=== PATIENT | female | born 1980 | race Caucasian/White ===

== ENCOUNTER 2017-02-08 03:24 | Observation (INO) | payer MEDICARE ==
[~2017-02-08] VITALS: Ht 175.3 cm; Wt 161.2 kg
[~2017-02-08 03:24] MED LIST: ACET-789 PO; AMOX500C2 PO; BENZ-13 PO; BUTA-234 PO; BUTA1TAB55 PO; CEFD300C3 PO; CEPH500T PO; CLIN300C3 PO; CLN150C PO; CYCL10TA9 PO; DIPH25CA79 PO; DOXY100C2 PO; DOXY100T61 PO; FURO-125 PO; HYDR-707 PO; IBP600T1; IBP800T PO; IBUP-30 PO; IPRA3AMP IH; LACT1CAP62 PO; LEVO500T69 PO; LEVO500T80 PO; LIRA0.6P SQ; LURA20TA PO; LURA60TA2 PO; LVF500T PO; MELO-198 PO; METF500T4 PO; METH4TAB PO; MINO100T10 PO; MPR22T TOP; MPR22T TP; MTF500T PO; NAPR-243 PO; NYQUIL LIQUID PO; OFLO5DRO7 EACH EAR; PRD10T PO; PRD20T PO; PREG25CA PO; PREG50CA2 PO; PRM25T PO; PROBIOTIC1 EACH PO; RT-ALBUINH IH; SPIR25TA PO; SULF1TAB35 PO; SULF1TAB38 PO; TERB15CR6 TP; TPR100T PO; TR025C15 TP; TRAM50TA2 PO; TRM50T PO
[2017-02-08] MEDS ORDERED: CLINDAMYCIN INJECTION 900 MG in NS (IVPB) 50 ML IV ONE (03:45)
[2017-02-08] MEDS ORDERED: fentaNYL INJECTION 100 MCG/2 ML AMP IVP ONE (03:45)
[2017-02-08 04:10] LABS: BASOPHILS % (AUTO) 0 % (0-10); EOSINOPHILS # (AUTO) 0.4 10^3/uL (0.0-0.3); EOSINOPHILS % (AUTO) 3 % (0-10); LYMPHOCYTES # (AUTO) 2.7 X 10^3 (1.0-4.0); LYMPHOCYTES % (AUTO) 20 % (12-44); MEAN CORPUSCULAR HEMOGLOBIN 25 PG (25-34); MEAN CORPUSCULAR HGB CONC 32 G/DL (32-36); MEAN CORPUSCULAR VOLUME 79 FL (80-99); MEAN PLATELET VOLUME 9.2 FL (7.4-10.4); MONOCYTES # (AUTO) 0.6 X 10^3 (0.0-1.0); MONOCYTES % (AUTO) 4 % (0-12); NEUTROPHILS # (AUTO) 9.8 X 10^3 (1.8-7.8); NEUTROPHILS % (AUTO) 73 % (42-75); PLATELET COUNT 383 10^3/uL (130-400); RED BLOOD COUNT 4.99 10^6/uL (4.35-5.85); RED CELL DISTRIBUTION WIDTH 14.8 % (10.0-14.5); WHITE BLOOD COUNT 13.4 10^3/uL (4.3-11.0)
[2017-02-08 04:29] LABS: ALANINE AMINOTRANSFERASE 28 U/L (0-55); ALBUMIN 3.9 G/DL (3.2-4.5); ANION GAP 15 MMOL/L (5-14); ASPARTATE AMINO TRANSFERASE 21 U/L (5-34); BILIRUBIN,TOTAL 0.3 MG/DL (0.1-1.0); BLOOD UREA NITROGEN 13 MG/DL (7-18); BUN/CREATININE RATIO 19; CALCIUM 9.4 MG/DL (8.5-10.1); CARBON DIOXIDE 23 MMOL/L (21-32); CHLORIDE 100 MMOL/L (98-107); GFR ESTIMATED > 60; GLUCOSE 129 MG/DL (70-105); POTASSIUM 3.9 MMOL/L (3.6-5.0); SODIUM 138 MMOL/L (135-145)
[2017-02-08] MEDS ORDERED: morphine INJ 10 MG/ML 1ML (SYR OR VIAL) IVP ONE (04:45)
[2017-02-08] MEDS ORDERED: DOXYCYCLINE 100 MG (VIBRAMYCIN) TABLET PO ONE (04:45)
[2017-02-08] MEDS ORDERED: NS IV 1000 ML 1,000 ML IV ONE (04:58)
--- NOTE | 2017-02-08 05:22 | ED General ---
General Chief Complaint: Skin/Wound Problems Stated Complaint: LEFT & RT LEG OPEN SKIN WOUNDS-NO INJURY Nursing Triage Note: Amb to ED to report painful lower extremities since Friday night. the lower extremities began to make sores and open/weep. 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 She reports having some fevers earlier in the week she attributed to some sinus problems but no fevers over the past 48 hours. She reports the pain is becoming intolerable despite taking ibuprofen. She is afebrile on presentation. She has been treated for cellulitis in the past, and wound cultures from prior visits were reviewed. She has some mild weeping of the lesions where there is skin breakdown. Allergies and Home Medications Allergies Coded Allergies: NKANo Known Allergies (Verified Allergy, Mild, 02/08/17) Home Medications Albuterol Sulfate 8.5 Gm Hfa.aer.ad, 8.5 GM IH Q4H PRN for WHEEZING, #1 Prescribed by: SIMBA PATEL on 09/19/15 1206 Clobetasol Propionate 15 Gm Oint...g., 15 GM TP BID, #1 Ref 0 Prescribed by: KEV SHELL on 02/08/17 1403 Furosemide 20 Mg Tablet, 20 MG PO DAILY, (Reported) Ibuprofen 200 Mg Tablet, 800 MG PO TID PRN for PAIN, (Reported) TAKES 4 (200MG) TABLETS Ipratropium/Albuterol Sulfate 3 Ml Ampul.neb, 3 ML IH Q4H PRN for SHORTNESS OF BREATH, #25 Prescribed by: DELANEY GARZA on 09/22/152015 Lurasidone HCl 60 Mg Tablet, 60 MG PO HS, (Reported) Mupirocin 22 Gm Tube, 1 APPLIC TP BID PRN for ITCHING AND RASH, (Reported) APPLY TO LEFT LOWER EXTREMITY SPARINGLY TO AFFECTED AREA(S) Mupirocin Calcium 15 Gm Cream..g., 15 GM TP BID for 7 Days, #1 Ref 0 Prescribed by: KEV SHELL on 02/08/17 1403 Terbinafine HCl 15 Gm Cream..g., TP BID PRN for LEG SORES, (Reported) Constitutional: see HPI EENTM: no symptoms reported Respiratory: no symptoms reported Cardiovascular: no symptoms reported Gastrointestinal: no symptoms reported Genitourinary: no symptoms reported ( aaaaaaaaaaaaaaaaaaaaaaaaaaaaaaaaaaaaaaaaaaaaaaaaaaaaaaaaaaaaaaaaaaaaaaaaaaaaaaaa aaaaaaaaaaaaaaaa ) Musculoskeletal: no symptoms reported Skin: see HPI Psychiatric/Neurological: No Symptoms Reported Hematologic/Lymphatic: No Symptoms Reported Past Mbecowm-Gfxhdi-Plzmtx Hx Patient Social History Alcohol Use: Occasionally Uses Recreational Drug Use: Yes (HISTORY OF ILLICIT DRUG USE) Smoking Status: Never a Smoker Recent Foreign Travel: No Contact w/Someone Who Travel: No Recent Infectious Disease Expo: No Recent Hopitalizations: No Immunizations Up To Date Tetanus Booster (TDap): Less than 5yrs PED Vaccines UTD: No Date of Pneumonia Vaccine: Jun 15, 2011 Date of Influenza Vaccine: Sep 16, 2015 Seasonal Allergies Seasonal Allergies: No Surgeries HX Surgeries: Yes (EGD, L MASTOIDECTOMY, R MYRINGOTOMY TUBE, BTL REVERSAL) Surgeries: Appendectomy, Ear Surgery, Gallbladder, Tubal Ligation Respiratory Hx Respiratory Disorders: Yes Respiratory Disorders: Pneumonia, Sleep Apnea Cardiovascular Hx Cardiac Disorders: Yes (-INDUCED HTN) Cardiac Disorders: Hypertension Neurological Hx Neurological Disorders: No 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 System Hx 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 Disorders: No Sexually Transmitted Disease: No HIV/AIDS: No Female 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 Disorders: Denies 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 Genitourinary Hx Genitourinary Disorders: Yes Genitourinary Disorders: Kidney Stones, UTI-Chronic Gastrointestinal Hx Gastrointestinal Disorders: Yes Gastrointestinal Disorders: Gastroesophageal Reflux Musculoskeletal Hx Musculoskeletal Disorders: Yes (CHRONIC GENERALIZED PAIN ) Musculoskeletal Disorders: Degenerate Disk Disease, Arthritis, Fibromyalgia, Chronic Back Pain Endocrine Hx Endocrine Disorders: No Endocrine Disorders: Diabetes, Non-Insulin dep HEENT HX ENT Disorders: Yes (MASTOIDITIS) HEENT Disorders: Chronic Ear Infection Loss of Vision: Denies Hearing Impairment: Hard of Hearing Cancer Hx Cancer: No Psychosocial Hx Psychiatric Problems: Yes (PSYCHOSIS, SOCIAL ANXIETY DISORDER) Behavioral Health Disorders: ADD/ADHD, Anxiety, Suicide Attempts, Bipolar, Personality Disorder, Schizophrenia, Depression Integumentary HX Skin/Integumentary Disorder: Yes (DARIER'S DISEASE. CHRONIC LEG CELLULITIS-- MRSA) Skin/Integumentary Disorders: Recent Skin Changes Blood Transfusions Hx Blood Disorders: No Adverse Reaction to a Blood Tr: No Family Medical History Significant Family History: No Pertinent Family Hx Family Medial History: Cancer Chest pain 03 FATHER, Onset:Unknown UNCLE, Onset:Unknown Congestive heart failure Family history: Allergy 09 BROTHER, Onset:Unknown Family history: Arthritis 03 FATHER, Onset:Unknown 03 MOTHER, Onset:Unknown Family history: Asthma 03 FATHER, Onset:Unknown UNCLE, Onset:Unknown Family history: Diabetes mellitus Family history: Thyroid disorder 09 SISTER, Onset:Unknown Headache 03 MOTHER, Onset:Unknown Heart disease Hereditary disease 03 FATHER, Onset:Unknown 09 BROTHER, Onset:Unknown UNCLE, Onset:Unknown History of - respiratory disease 03 FATHER, Onset:Unknown UNCLE, Onset:Unknown Myocardial infarction Psychotic disorder 09 BROTHER, Onset:Unknown No Family History of: Abdominal aortic aneurysm Antoni's disease Alcoholism Aphasia Cancer of colon Cataract Congenital heart disease Cystic fibrosis Dementia Dysphagia Family history: Alzheimer's disease Family history: Breast disease Family history: Cardiovascular disease Family history: Coronary thrombosis Family history: Gastrointestinal disease Family history: Glaucoma Family history: Hypertension Family history: Osteoporosis Hearing loss History of - anemia History of drug abuse Human immunodeficiency virus (HIV) seropositivity Hypercholesterolemia Infertile Kidney disease Malignant neoplasm of lung Parkinson's disease Prostate cancer Seizure disorder Stroke Tuberculosis Visual impairment Physical Exam Vital Signs Vital Sign - Last 12Hours 02/08/17 03:34 Temp 98.3 Pulse 99 Resp 20 B/P (MAP) 141/77 Pulse Ox 96 O2 Delivery Room Air Capillary Refill : Less Than 3 Seconds General Appearance: No Apparent Distress, WD/WN, Obese HEENT: PERRL/EOMI, Normal ENT Inspection Neck: Normal Inspection Respiratory: Lungs Clear, Normal Breath Sounds, No Accessory Muscle Use, No Respiratory Distress Cardiovascular: Regular Rate, Rhythm, No Edema, Normal Peripheral Pulses Gastrointestinal: Normal Bowel Sounds, Non Tender, Soft Extremity: Other (Crusting skin lesions and open slightly oozing wounds on the shins bilaterally) Neurologic/Psychiatric: Alert, Oriented x3, No Motor/Sensory Deficits, Normal Mood/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 Pain in the legs gradually improved. However, patient has now developed left-sided chest pain that radiates into the back. She is somewhat anxious as well. Labs for evaluation of chest pain have been ordered. Additionally, it is noted that heart rate did not improve much with a liter of IV fluids and with control of the leg pain. Therefore a lactic acid and blood cultures are being drawn. It should be noted that blood cultures are being drawn after IV clindamycin was administered. Original plan was to treat patient with IV clindamycin and oral doxycycline and dismiss home. However, development of chest pain and the persistent presence of mild tachycardia have altered the disposition. Progress Note #2: Time: 06:21 Progress Note Patient was given nitroglycerin. After the second dose her pain diminished to about 1/10. EKG, troponin, and d-dimer were negative. ECG Initial ECG Impression Date: February 08, 2017 Initial ECG Impression Time: 05:44 Initial ECG Rate: 89 Initial ECG Rhythm: Normal Sinus Initial ECG Intervals: Normal Initial ECG Impression: Normal Comment Normal sinus rhythm with no ST elevation or depression. No abnormal intervals or axis deviation. Diagnostic Imaging Diagonstic Imaging: Xray Plain Films/CT/US/NM/MRI: chest Comments NAME: MARIBELL ROSSI [facility] REC#: [id number] PT STATUS: ADM Ileana : 1980 PHYSICIAN: JUAN ROTH MD ADMIT DATE: 02/08/17 Signed Date of Exam: 02/08/17 CHEST 1 VIEW, AP/PA ONLY CHEST 1 VIEW, AP/PA ONLY Indication: Chest pain Comparison: 09/24/2015 Findings: No focal airspace disease in the visualized lungs. Please note that the posterior lower lobes are poorly evaluated by portable radiography. No pleural effusion or pneumothorax. Normal cardiomediastinal silhouette. Impression: No acute cardiopulmonary process by portable radiography. Dictated by: Dictated on workstation # [id number] Dict: 02/08/17942 Trans: 02/08/17943 Interpreted by: KATHRYN RONDON MD Electronically signed by: KATHRYN RONDON MD 02/08/17943 Departure Communication Time/Spoke to Admitting Phy: 06:[address] Randa Shell who agrees to admission for observation for chest pain rule-out and treatment of cellulitis. Impression Impression: Primary Impression: Cellulitis of both lower extremities Additional Impressions: Darier disease Chest pain Qualified Codes: R07.9 - Chest pain, unspecified Disposition: ADMITTED INPATIENT Condition: Improved Decision to Admit Reason: Admit from ER (General) Decision to Admit/Date: February 08, 2017 Time/Decision to Admit Time: 05:45 Departure-Patient Inst. Referrals: LONDON MAXWELL DO (PCP) Primary Care Physician OCTAVIO RANDALL (Family) Primary Care Physician Carmen Clobetasol Propionate (Temovate) 15 Gm Oint...g. 15 GM TP BID, #1 TUBE 0 Refills Prov: KEV SHELL MD 02/08/17 Mupirocin Calcium (Bactroban) 15 Gm Cream..g. 15 GM TP BID for 7 Days, #1 TUBE 0 Refills Prov: KEV SHELL MD 02/08/17 JUAN ROTH MD February 08, 2017 05:22
[2017-02-08] MEDS ORDERED: ASPIRIN 81 MG CHEW (CHILDREN'S ASA) PO ONE (05:45)
[2017-02-08] MEDS: RX-NITROGLYCERIN 0.4 MG TAB BTL 25'S SL PRN ×2 (06:04→06:15)
[2017-02-08 06:07] LABS: MAGNESIUM 2.3 MG/DL (1.8-2.4)
[2017-02-08 06:20] LABS: MYOGLOBIN SERUM 21.3 NG/ML (10.0-92.0)
[2017-02-08 06:28] LABS: PROTHROMBIN TIME PATIENT 13.3 SEC (12.2-14.7)
[2017-02-08 07:15] VITALS: BP 121/69
[2017-02-08 08:58] VITALS: BP 121/69
[2017-02-08] MEDS ORDERED: CATHETER FLUSH 10 ML SYR IV PRN (09:00)
[2017-02-08] MEDS ORDERED: NS IV 1000 ML 1,000 ML IV SCH (09:00)
--- NOTE | 2017-02-08 09:46 | Diagnostic Imaging Report ---
CHEST 1 VIEW, AP/PA ONLY Indication: Chest pain Comparison: 09/24/2015 Findings: No focal airspace disease in the visualized lungs. Please note that the posterior lower lobes are poorly evaluated by portable radiography. No pleural effusion or pneumothorax. Normal cardiomediastinal silhouette. Impression: No acute cardiopulmonary process by portable radiography. Dictated by: Dictated on workstation # [id number]
[2017-02-08] MEDS ORDERED: HYDROcodone/APAP 5 MG/325 MG (LORTAB) TAB PO PRN (11:00)
[2017-02-08 12:00] VITALS: BP 123/59
--- NOTE | 2017-02-08 14:01 | Short Stay Summary ---
HPI History of Present Illness: Zohreh is a patient with a history of Darier's disease in her legs. She presented to ER last ngith with complaints that she had run out of her creams and that her legs had open sores and were exquisitely painful. She is usually on triamcinolone and bactroban. She could not afford them due to expense. They had since broken open and were weeping. She came to ER seeking treatment for her legs. While in ER she was considerably anxious and began having chest pain. It did not radiate and was not associated with nausea or vomiting. She has no cardiac history. Source: patient Exam Limitations: no limitations Date seen by provider: February 09, 2017 Attending Physician Kev Castro MD PCP Rhiannon Trujillo DO Consult Date of Admission February 08, 2017 at 06:11 Home Medications Home Medications Reviewed patient Home Medication Reconciliation Form Allergies Coded Allergies: NKANo Known Allergies (Verified Allergy, Mild, 02/08/17) CPA-Hyqjky-Owumii Hx Patient Social History Alcohol Use: Denies Use Recreational Drug Use: No Smoking Status: Never a Smoker Recent Foreign Travel: No Contact w/other who traveled: No Recent Hopitalizations: No Recent Infectious Disease Expo: No Physical Abuse Screen: No Sexual Abuse: No Immunizations Up To Date Tetanus Booster (TDap): Less than 5yrs Date of Pneumonia Vaccine: Jun 15, 2011 Date of Influenza Vaccine: Sep 16, 2015 Past Medical History Bioplar Disorder Darier's Disease hx of Hypertension - not currently treated Chronic low back pain Morbid Obesity hx of kidney stones HELEN - c-pap (does not use regularly) PSH: cholecystectomy appendectomy tubal ligation EGD left mastoidectomy right ear tubes Family Medical History Significant Family History: No Pertinent Family Hx Family History: Cancer Chest pain 03 FATHER, Onset:Unknown UNCLE, Onset:Unknown Congestive heart failure Family history: Allergy 09 BROTHER, Onset:Unknown Family history: Arthritis 03 FATHER, Onset:Unknown 03 MOTHER, Onset:Unknown Family history: Asthma 03 FATHER, Onset:Unknown UNCLE, Onset:Unknown Family history: Diabetes mellitus Family history: Thyroid disorder 09 SISTER, Onset:Unknown Headache 03 MOTHER, Onset:Unknown Heart disease Hereditary disease 03 FATHER, Onset:Unknown 09 BROTHER, Onset:Unknown UNCLE, Onset:Unknown History of - respiratory disease 03 FATHER, Onset:Unknown UNCLE, Onset:Unknown Myocardial infarction Psychotic disorder 09 BROTHER, Onset:Unknown No Family History of: Abdominal aortic aneurysm [place]'s disease Alcoholism Aphasia Cancer of colon Cataract Congenital heart disease Cystic fibrosis Dementia Dysphagia Family history: Alzheimer's disease Family history: Breast disease Family history: Cardiovascular disease Family history: Coronary thrombosis Family history: Gastrointestinal disease Family history: Glaucoma Family history: Hypertension Family history: Osteoporosis Hearing loss History of - anemia History of drug abuse Human immunodeficiency virus (HIV) seropositivity Hypercholesterolemia Infertile Kidney disease Malignant neoplasm of lung Parkinson's disease Prostate cancer Seizure disorder Stroke Tuberculosis Visual impairment Review of Systems ([place]) Constitutional: no symptoms reported All Other Systems Reviewed Negative Unless Noted: Yes Physical Exam-([place]) Physical Exam Vital Signs VS - Last 72 Hours, by Label 02/08/17 02/08/17 02/08/17 02/08/17 03:34 04:44 06:02 07:05 Temp 98.3 98.3 98.3 98.3 Pulse 99 86 Resp 20 16 B/P (MAP) 141/77 100/64 Pulse Ox 96 95 O2 Delivery Room Air Room Air 02/08/17 02/08/17 02/08/17 02/08/17 07:05 07:15 08:58 09:40 Temp 98.3 98.5 98.5 Pulse 86 87 87 88 Resp 16 20 20 B/P (MAP) 121/69 121/69 Pulse Ox 95 96 96 02/08/17 02/08/17 12:00 13:00 Temp 98.2 Pulse 80 85 Resp 20 B/P (MAP) 123/59 Pulse Ox 96 Capillary Refill : Less Than 3 Seconds General Appearance: WD/WN, no apparent distress HEENT: PERRL/EOMI, pharynx normal Neck: full range of motion, supple, normal inspection Respiratory: lungs clear, normal breath sounds, no respiratory distress, no accessory muscle use Cardiovascular: regular rate, rhythm, no gallop, no JVD, no murmur Gastrointestinal: normal bowel sounds, non tender, soft, no organomegaly Extremities: no calf tenderness, normal capillary refill 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 I do believe this was more related dto pain and anxiety at her situation. Further discussions should take place between Zohreh and her PCP regarding need for stress test. Advise chemical stress test due to significant lesions on her legs. May also need treatment for anxiety - whether therapy or prescription - if this is longstanding. For the Darier's disease, I have written for Temovate cream which she can get from the pharmacy much more cheaply. This is a class 1 steroid adn stronger than the usual triamcinolone, so that should also help heal the lesions quicker. I have advised her to buy bactroban as well, but she stated she could not afford that. She should see Kasandra this week to discuss need for wound care at [facility]. Clinical Quality Measures DVT/VTE Risk/Contraindication: Risk Factor Score Per Nursin RFS Level Per Nursing on Admit: 1=Low/No VTE PPX Copy Copies To 1: KEV MATTHEWS APRN, MD February 08, 2017 14:01
[2017-02-08] MEDS ORDERED: CLOB15OI15 TP (14:03)
[2017-02-08] MEDS ORDERED: MUPI15CR TP (14:03)
--- NOTE | 2017-02-08 14:06 | Discharge Instructions ---
Discharge [facility] Discharge Medications New, Converted or Re-Newed RX: Transmitted to Pharmacy New Medications: Clobetasol Propionate (Temovate) 15 Gm Oint...g. 15 GM TP BID, #1 TUBE 0 Refills Mupirocin Calcium (Bactroban) 15 Gm Cream..g. 15 GM TP BID for 7 Days, #1 TUBE 0 Refills Continued Medications: Albuterol Sulfate (Proair Hfa) 8.5 Gm Hfa.aer.ad 8.5 GM IH Q4H PRN for WHEEZING, #1 GM Furosemide (Lasix) 20 Mg Tablet 20 MG PO DAILY, TAB Ibuprofen (Advil) 200 Mg Tablet 800 MG PO TID PRN for PAIN TAKES 4 (200MG) TABLETS Ipratropium/Albuterol Sulfate (Iprat-Albut 0.5-3(2.5) mg/3 ml) 3 Ml Ampul.neb 3 ML IH Q4H PRN for SHORTNESS OF BREATH, #25 INHALER Lurasidone HCl (Latuda) 60 Mg Tablet 60 MG PO HS Mupirocin (Bactroban Ointment 22 Gm) 22 Gm Tube 1 APPLIC TP BID PRN for ITCHING AND RASH APPLY TO LEFT LOWER EXTREMITY SPARINGLY TO AFFECTED AREA(S) Terbinafine HCl (Terbinafine) 15 Gm Cream..g. TP BID PRN for LEG SORES Discontinued Medications: Triamcinolone Acet (Triamcinolone Acetonide 0.025%) 15 Gm Cr TP BID PRN for LEG SORES Patient Instructions Goal/Follow Up Appt: The [facility]/Juanis transition nurse will call you on Friday to schedule an appointment. Please also arrange your own appointment with your adjutant general. Patient Instructions: Use the Temovate cream as a replacement for the triamcinolone since it is cheaper. In addition, it is stronger and will help heal the open lesions faster. Return to The Hospital For: fever, redness of entire leg, messi bleeding from wounds Activity & Diet Discharge Diet: No Restrictions Copy Copies To 1: [facility]/KEV QUESADA MD February 08, 2017 14:06
== END 2017-02-08 14:04 | disposition home or self-care (01) ==
LOC: EDUNIT# 03:24 → ER 03:29 → 4TH 06:11 → UNDOADMOB 06:11 → 4TH 07:15 → UNDODISOB 14:40
PROVIDERS: ADMIT Pediatrics; ATTEND Pediatrics
DX: L03.115 Cellulitis of right lower limb (principal); L03.116 Cellulitis of left lower limb; Q82.8 Other specified congenital malformations of skin; E11.9 Type 2 diabetes mellitus without complications; M79.7 Fibromyalgia; K21.9 Gastro-esophageal reflux disease without esophagitis; R07.89 Other chest pain
CPT/HCPCS: 36415; 71010; 80053; 83605; 83735; 83874; 84484; 84703; 85025; 85610; 85730; 86141; 87040; 87070; 87077; 87186; 87205; 93005; 93041; 96361; 96365; 96375; G0378

== ENCOUNTER 2017-03-26 01:48 | Emergency (ER) | payer MEDICARE ==
[~2017-03-26] VITALS: Ht 165.1 cm; Wt 159.7 kg
[~2017-03-26 01:48] MED LIST changes: +CLOB15OI15 TP; +MUPI15CR TP
--- OUTSIDE RECORDS SUMMARY | 2017-03-26 02:08 | XMS REPORT | Continuity of Care Document ---
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 08/14/1499 OLGA NICE MD, Ot L97.221 NON-PRS CHRONIC ULCER OF LEFT CALF LIMIT 08/14/1499 OLGA NICE MD Ot 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 09/22/2009 ANDRES HARDWICK DO 465.9 UPPER RESPIRATORY INFECTION 09/22/2009 ADNRES HARDWICK DO 465.9 UPPER RESPIRATORY INFECTION 09/22/2009 465.9 UPPER RESPIRATORY INFECTION 09/22/2009 CAROLYNE STARR MD 465.9 UPPER RESPIRATORY INFECTION 09/22/2009 CAROLYNE STARR MD 465.9 UPPER RESPIRATORY INFECTION 09/22/2009 ANDRES HARDWICK DO 465.9 UPPER RESPIRATORY INFECTION 09/22/2009 ANDRES HARDWICK DO 465.9 UPPER RESPIRATORY INFECTION 09/22/2009 465.9 UPPER RESPIRATORY INFECTION 09/22/2009 465.9 UPPER RESPIRATORY INFECTION 09/22/2009 465.9 UPPER RESPIRATORY INFECTION 09/22/2009 465.9 UPPER RESPIRATORY INFECTION 09/22/2009 465.9 UPPER RESPIRATORY INFECTION 09/22/2009 ANDRES HARDWICK DO 465.9 UPPER RESPIRATORY INFECTION 09/22/2009 MEHUL PHD, ANGELICA Rawls 465.9 UPPER RESPIRATORY INFECTION 09/22/2009 MEHUL BEYER, ANGELICA Rawls 465.9 UPPER RESPIRATORY INFECTION 09/22/2009 LEIGH VELASCO MD 465.9 UPPER RESPIRATORY INFECTION 09/22/2009 SIRENA LEMA APRN 465.9 UPPER RESPIRATORY INFECTION 09/22/2009 CAROLYNE STARR MD 465.9 UPPER RESPIRATORY INFECTION 09/22/2009 MEHUL PHD, ANGELICA Rawls 465.9 UPPER RESPIRATORY INFECTION 09/22/2009 TOREY TASSEL MAKERSIRENA Dougherty 465.9 UPPER RESPIRATORY INFECTION 09/22/2009 KRISTA HUDSON, LEIGH Rodriguez 465.9 UPPER RESPIRATORY INFECTION 09/22/2009 TOREY TASSEL MAKERSIRENA Dougherty 465.9 UPPER RESPIRATORY INFECTION 09/22/2009 GARMANUEL KENDALL, SIRENA Rawls 465.9 UPPER RESPIRATORY INFECTION 09/22/2009 RUI KENDALL, KIEL A 465.9 UPPER RESPIRATORY INFECTION 09/22/2009 CAROLYNE STARR MD 465.9 UPPER RESPIRATORY INFECTION 09/22/2009 TERA KENDALL SHERI T 465.9 UPPER RESPIRATORY INFECTION 09/22/2009 ROCIO TASSEL MAKER, RHONDA 465.9 UPPER RESPIRATORY INFECTION 09/22/2009 MAXWELL DO, LONDON K 465.9 UPPER RESPIRATORY INFECTION 09/22/2009 ROCIO TASSEL MAKER, RHONDA 465.9 UPPER RESPIRATORY INFECTION 09/22/2009 MAXWELL DO, LONDON K 465.9 UPPER RESPIRATORY INFECTION 09/22/2009 TERA KENDALL SHERI T 465.9 UPPER RESPIRATORY INFECTION 09/22/2009 ROCIO TASSEL MAKER, RHONDA 465.9 UPPER RESPIRATORY INFECTION 09/22/2009 TERA TASSEL MAKER, SHERI T 465.9 UPPER RESPIRATORY INFECTION 09/22/2009 ROCIO TASSEL MAKER, RHONDA 465.9 UPPER RESPIRATORY INFECTION 09/22/2009 MAXWELL DO, LONDON K 465.9 UPPER RESPIRATORY INFECTION 09/22/2009 ROCIO TASSEL MAKER, RHONDA 465.9 UPPER RESPIRATORY INFECTION 09/22/2009 TARIK KENDALL MONTRELL R 465.9 UPPER RESPIRATORY INFECTION 10/24/2009 ANDRES HARDWICK DO F 558.9 GASTROENTERITIS NONINFECTIOUS 10/24/2009 MACY HARDWICK DOEN F 599.0 URINARY TRACT INFECTION 10/24/2009 MACY HARDWICK DOEN F 558.9 GASTROENTERITIS NONINFECTIOUS 10/24/2009 ANDRES HARDWICK DO F 599.0 URINARY TRACT INFECTION 10/24/2009 558.9 GASTROENTERITIS NONINFECTIOUS 10/24/2009 599.0 URINARY TRACT INFECTION 10/24/2009 CAROLYNE STARR MD 558.9 GASTROENTERITIS NONINFECTIOUS 10/24/2009 CAROLYNE STARR MD 599.0 URINARY TRACT INFECTION 10/24/2009 CAROLYNE STARR MD 558.9 GASTROENTERITIS NONINFECTIOUS 10/24/2009 CAROLYNE STARR MD 599.0 URINARY TRACT INFECTION 10/24/2009 GAGEPAULINO ANDRES F 558.9 GASTROENTERITIS NONINFECTIOUS 10/24/2009 RONEN FIGUEROA ANDRES F 599.0 URINARY TRACT INFECTION 10/24/2009 RONEN ANDRES F 558.9 GASTROENTERITIS NONINFECTIOUS 10/24/2009 RONEN FIGUEROA ANDRES F 599.0 URINARY TRACT INFECTION 10/24/2009 558.9 GASTROENTERITIS NONINFECTIOUS 10/24/2009 599.0 URINARY TRACT INFECTION 10/24/2009 558.9 GASTROENTERITIS NONINFECTIOUS 10/24/2009 599.0 URINARY TRACT INFECTION 10/24/2009 558.9 GASTROENTERITIS NONINFECTIOUS 10/24/2009 599.0 URINARY TRACT INFECTION 10/24/2009 558.9 GASTROENTERITIS NONINFECTIOUS 10/24/2009 599.0 URINARY TRACT INFECTION 10/24/2009 558.9 GASTROENTERITIS NONINFECTIOUS 10/24/2009 599.0 URINARY TRACT INFECTION 10/24/2009 RONEN FIGUEROA ANDRES F 558.9 GASTROENTERITIS NONINFECTIOUS 10/24/2009 RONEN FIGUEROA ANDRES F 599.0 URINARY TRACT INFECTION 10/24/2009 MEHUL PHD, ANGELICA Rawls 558.9 GASTROENTERITIS NONINFECTIOUS 10/24/2009 MEHUL BEYER, ANGELICA Rawls 599.0 URINARY TRACT INFECTION 10/24/2009 MEHUL BEYER, ANGELICA Rawls 558.9 GASTROENTERITIS NONINFECTIOUS 10/24/2009 MEHUL BEYER, ANGELICA Rawls 599.0 URINARY TRACT INFECTION 10/24/2009 KRISTA HUDSON, LEIGH Rodriguez 558.9 GASTROENTERITIS NONINFECTIOUS 10/24/2009 LEIGH VELASCO MD 599.0 URINARY TRACT INFECTION 10/24/2009 SIRENA LEMA APRN 558.9 GASTROENTERITIS NONINFECTIOUS 10/24/2009 SIRENA LEMA APRN 599.0 URINARY TRACT INFECTION 10/24/2009 CAROLYNE STARR MD 558.9 GASTROENTERITIS NONINFECTIOUS 10/24/2009 CAROLYNE STARR MD 599.0 URINARY TRACT INFECTION 10/24/2009 MEHUL BEYER, ANGELICA Rawls 558.9 GASTROENTERITIS NONINFECTIOUS 10/24/2009 MEHUL BEYER, ANGELICA Rawls 599.0 URINARY TRACT INFECTION 10/24/2009 SIRENA LEMA APRN 558.9 GASTROENTERITIS NONINFECTIOUS 10/24/2009 SIRENA LEMA APRN D 599.0 URINARY TRACT INFECTION 10/24/2009 LEIGH VELASCO MD 558.9 GASTROENTERITIS NONINFECTIOUS 10/24/2009 LEIGH VELASCO MD 599.0 URINARY TRACT INFECTION 10/24/2009 SIRENA LEMA APRN D 558.9 GASTROENTERITIS NONINFECTIOUS 10/24/2009 SIRENA ELMA APRN D 599.0 URINARY TRACT INFECTION 10/24/2009 SIRENA LEMA APRN D 558.9 GASTROENTERITIS NONINFECTIOUS 10/24/2009 SIRENA LEMA APRN D 599.0 URINARY TRACT INFECTION 10/24/2009 KIEL FABIAN APRN A 558.9 GASTROENTERITIS NONINFECTIOUS 10/24/2009 BENEDICTO FABIAN APRNIDI A 599.0 URINARY TRACT INFECTION 10/24/2009 CAROLYNE STARR MD 558.9 GASTROENTERITIS NONINFECTIOUS 10/24/2009 CAROLYNE STARR MD 599.0 URINARY TRACT INFECTION 10/24/2009 SHERI HALEY APRN 558.9 GASTROENTERITIS NONINFECTIOUS 10/24/2009 SHERI HALEY APRN 599.0 URINARY TRACT INFECTION 10/24/2009 RHONDA CHAN APRN 558.9 GASTROENTERITIS NONINFECTIOUS 10/24/2009 ROCIOTYSON KENDALL RHONDA 599.0 URINARY TRACT INFECTION 10/24/2009 MAXWELL DO LONDON K 558.9 GASTROENTERITIS NONINFECTIOUS 10/24/2009 MAXWELL , LONDON K 599.0 URINARY TRACT INFECTION 10/24/2009 ROCIO TASSEL MAKER, RHONDA 558.9 GASTROENTERITIS NONINFECTIOUS 10/24/2009 ROCIO TASSEL MAKER, RHONDA 599.0 URINARY TRACT INFECTION 10/24/2009 MAXWELL DO, LONDON K 558.9 GASTROENTERITIS NONINFECTIOUS 10/24/2009 MAXWELL DO, LONDON K 599.0 URINARY TRACT INFECTION 10/24/2009 SHERI HALEY APRN 558.9 GASTROENTERITIS NONINFECTIOUS 10/24/2009 SHERI HALEY APRN 599.0 URINARY TRACT INFECTION 10/24/2009 ROCIO KENDALL RHONDA 558.9 GASTROENTERITIS NONINFECTIOUS 10/24/2009 ROCIO TASSEL MAKER, RHONDA 599.0 URINARY TRACT INFECTION 10/24/2009 TERA TASSEL MAKER, SHERI T 558.9 GASTROENTERITIS NONINFECTIOUS 10/24/2009 TERA TASSEL MAKER, SHERI T 599.0 URINARY TRACT INFECTION 10/24/2009 ROCIO TASSEL MAKER, RHONDA 558.9 GASTROENTERITIS NONINFECTIOUS 10/24/2009 ROCIO TASSEL MAKER, RHONDA 599.0 URINARY TRACT INFECTION 10/24/2009 MAXWELL DO, LONDON K 558.9 GASTROENTERITIS NONINFECTIOUS 10/24/2009 MAXWELL DO, LONDON K 599.0 URINARY TRACT INFECTION 10/24/2009 ROCIO TASSEL MAKER, RHONDA 558.9 GASTROENTERITIS NONINFECTIOUS 10/24/2009 ROCIO TASSEL MAKER, RHONDA 599.0 URINARY TRACT INFECTION 10/24/2009 TARIK TASSEL MAKER, MONTRELL R 558.9 GASTROENTERITIS NONINFECTIOUS 10/24/2009 TARIK TASSEL MAKER, MONTRELL R 599.0 URINARY TRACT INFECTION 12/12/2009 ANDRES HARDWICK DO 041.86 H. PYLORI INFECTION 12/12/2009 ANDRES HARDWICK DO 041.86 H. PYLORI INFECTION 12/12/2009 041.86 H. PYLORI INFECTION 12/12/2009 CAROLYNE STARR MD 041.86 H. PYLORI INFECTION 12/12/2009 CAROLYNE STARR MD 041.86 H. PYLORI INFECTION 12/12/2009 ANDRES HARDWICK DO 041.86 H. PYLORI INFECTION 12/12/2009 ANDRES HARDWICK DO 041.86 H. PYLORI INFECTION 12/12/2009 041.86 H. PYLORI INFECTION 12/12/2009 041.86 H. PYLORI INFECTION 12/12/2009 041.86 H. PYLORI INFECTION 12/12/2009 041.86 H. PYLORI INFECTION 12/12/2009 041.86 H. PYLORI INFECTION 12/12/2009 ANDRES HARDWICK DO 041.86 H. PYLORI INFECTION 12/12/2009 MEHUL PHD, ANGELICA Rawls 041.86 H. PYLORI INFECTION 12/12/2009 MEHUL BEYER, ANGELICA Rawls 041.86 H. PYLORI INFECTION 12/12/2009 KRISTA HUDSON, LEIGH Rodriguez 041.86 H. PYLORI INFECTION 12/12/2009 SIRENA LEMA APRN 041.86 H. PYLORI INFECTION 12/12/2009 CAROLYNE STARR MD 041.86 H. PYLORI INFECTION 12/12/2009 MEHUL PHD, ANGELICA Rawls 041.86 H. PYLORI INFECTION 12/12/2009 SIRENA LEMA APRN 041.86 H. PYLORI INFECTION 12/12/2009 KRISTA HUDSON, LEIGH Rodriguez 041.86 H. PYLORI INFECTION 12/12/2009 SIRENA LEMA APRN 041.86 H. PYLORI INFECTION 12/12/2009 SIRENA LEMA APRN 041.86 H. PYLORI INFECTION 12/12/2009 RUI KENDALL, KIEL Esposito 041.86 H. PYLORI INFECTION 12/12/2009 CAROLYNE STARR MD 041.86 H. PYLORI INFECTION 12/12/2009 SHERI HALEY APRN T 041.86 H. PYLORI INFECTION 12/12/2009 ROCIO TASSEL MAKER, RHONDA 041.86 H. PYLORI INFECTION 12/12/2009 MAXWELL DO, LONDON K 041.86 H. PYLORI INFECTION 12/12/2009 ROCIO TASSEL MAKER, RHONDA 041.86 H. PYLORI INFECTION 12/12/2009 MAXWELL DO, LONDON K 041.86 H. PYLORI INFECTION 12/12/2009 TERA KENDALL SHERI T 041.86 H. PYLORI INFECTION 12/12/2009 ROCIO TASSEL MAKER, RHONDA 041.86 H. PYLORI INFECTION 12/12/2009 TERA KENDALL SHERI T 041.86 H. PYLORI INFECTION 12/12/2009 ROCIO TASSEL MAKER, RHONDA 041.86 H. PYLORI INFECTION 12/12/2009 MAXWELL DO, LONDON K 041.86 H. PYLORI INFECTION 12/12/2009 ROCIO TASSEL MAKER, RHONDA 041.86 H. PYLORI INFECTION 12/12/2009 TARIK KENDALL, MONTRELL R 041.86 H. PYLORI INFECTION 01/21/2010 Ot 346.90 01/21/2010 Ot 784.0 09/18/2010 ANDRES HARDWICK DO F 466.0 BRONCHITIS, ACUTE 09/18/2010 ANDRES HARDWICK DO 719.40 joint pain, localized 09/18/2010 ANDRES HARDWICK DO F 466.0 BRONCHITIS, ACUTE 09/18/2010 ANDRES HARDWICK DO 719.40 joint pain, localized 09/18/2010 466.0 BRONCHITIS, ACUTE 09/18/2010 719.40 joint pain, localized 09/18/2010 CAROLYNE STARR MD 466.0 BRONCHITIS, ACUTE 09/18/2010 RO HUDSON, CAROLYNE 719.40 joint pain, localized 09/18/2010 RO HUDSON, CAROLYNE 466.0 BRONCHITIS, ACUTE 09/18/2010 RO HUDSON, CAROLYNE 719.40 joint pain, localized 09/18/2010 WERDER DO, ANDRES F 466.0 BRONCHITIS, ACUTE 09/18/2010 WERDER DO, ANDRES F 719.40 joint pain, localized 09/18/2010 WERDER DO, ANDRES F 466.0 BRONCHITIS, ACUTE 09/18/2010 WERDER DO, ANDRES F 719.40 joint pain, localized 09/18/2010 466.0 BRONCHITIS, ACUTE 09/18/2010 719.40 joint pain, localized 09/18/2010 466.0 BRONCHITIS, ACUTE 09/18/2010 719.40 joint pain, localized 09/18/2010 466.0 BRONCHITIS, ACUTE 09/18/2010 719.40 joint pain, localized 09/18/2010 466.0 BRONCHITIS, ACUTE 09/18/2010 719.40 joint pain, localized 09/18/2010 466.0 BRONCHITIS, ACUTE 09/18/2010 719.40 JOINT PAIN, LOCALIZED 09/18/2010 WERDER DO, ANDRES F 466.0 BRONCHITIS, ACUTE 09/18/2010 WERDER DO, ANDRES F 719.40 JOINT PAIN, LOCALIZED 09/18/2010 MEHUL BEYER, ANGELICA Rawls 466.0 BRONCHITIS, ACUTE 09/18/2010 MEHUL BEYER, ANGELICA Rawls 719.40 JOINT PAIN, LOCALIZED 09/18/2010 MEHUL BEYER, ANGELICA Rawls 466.0 BRONCHITIS, ACUTE 09/18/2010 MEHUL BEYER, ANGELICA Rawls 719.40 JOINT PAIN, LOCALIZED 09/18/2010 LEIGH VELASCO MD 466.0 BRONCHITIS, ACUTE 09/18/2010 LEIGH VELASCO MD 719.40 JOINT PAIN, LOCALIZED 09/18/2010 SIRENA LEMA APRN 466.0 BRONCHITIS, ACUTE 09/18/2010 SIRENA LEMA APRN 719.40 JOINT PAIN, LOCALIZED 09/18/2010 CAROLYNE STARR MD 466.0 BRONCHITIS, ACUTE 09/18/2010 CAROLYNE STARR MD 719.40 JOINT PAIN, LOCALIZED 09/18/2010 MEHUL BEYER, ANGELICA Rawls 466.0 BRONCHITIS, ACUTE 09/18/2010 MEHUL PHD, ANGELICA Rawls 719.40 JOINT PAIN, LOCALIZED 09/18/2010 SIRENA LEMA APRN 466.0 BRONCHITIS, ACUTE 09/18/2010 SIRENA LEMA APRN 719.40 JOINT PAIN, LOCALIZED 09/18/2010 KRISTA HUDSON, LEIGH Rodriguez 466.0 BRONCHITIS, ACUTE 09/18/2010 LEIGH VELASCO MD 719.40 JOINT PAIN, LOCALIZED 09/18/2010 SIRENA LEMA APRN 466.0 BRONCHITIS, ACUTE 09/18/2010 SIRENA LEMA APRN 719.40 JOINT PAIN, LOCALIZED 09/18/2010 SIRENA LEMA APRN 466.0 BRONCHITIS, ACUTE 09/18/2010 SIRENA LEMA APRN 719.40 JOINT PAIN, LOCALIZED 09/18/2010 RUIKIEL Dougherty APRN A 466.0 BRONCHITIS, ACUTE 09/18/2010 RUILadonna KENDALL KIEL A 719.40 JOINT PAIN, LOCALIZED 09/18/2010 CAROLYNE STARR MD 466.0 BRONCHITIS, ACUTE 09/18/2010 CAROLYNE STARR MD 719.40 JOINT PAIN, LOCALIZED 09/18/2010 SHERI HALEY APRN 466.0 BRONCHITIS, ACUTE 09/18/2010 SHERI HALEY APRN 719.40 JOINT PAIN, LOCALIZED 09/18/2010 ROCIO TASSEL MAKER, RHONDA 466.0 BRONCHITIS, ACUTE 09/18/2010 ROCIO TASSEL MAKER, RHONDA 719.40 JOINT PAIN, LOCALIZED 09/18/2010 MAXWELL DO, LONDON K 466.0 BRONCHITIS, ACUTE 09/18/2010 MAXWELL DO, LONDON K 719.40 JOINT PAIN, LOCALIZED 09/18/2010 ROCIO TASSEL MAKER, RHONDA 466.0 BRONCHITIS, ACUTE 09/18/2010 ROCIO TASSEL MAKER, RHONDA 719.40 JOINT PAIN, LOCALIZED 09/18/2010 MAXWELL DO, LONDON K 466.0 BRONCHITIS, ACUTE 09/18/2010 MAXWELL DO, LONDON K 719.40 JOINT PAIN, LOCALIZED 09/18/2010 SHERI HALEY APRN 466.0 BRONCHITIS, ACUTE 09/18/2010 SHERI HALEY APRN 719.40 JOINT PAIN, LOCALIZED 09/18/2010 ROCIO TASSEL MAKER, RHONDA 466.0 BRONCHITIS, ACUTE 09/18/2010 ROCIO TASSEL MAKER, RHONDA 719.40 JOINT PAIN, LOCALIZED 09/18/2010 TERA TASSEL MAKER, SHERI T 466.0 BRONCHITIS, ACUTE 09/18/2010 TERA TASSEL MAKER, SHERI T 719.40 JOINT PAIN, LOCALIZED 09/18/2010 ROCIO TASSEL MAKER, RHONDA 466.0 BRONCHITIS, ACUTE 09/18/2010 ROCIO TASSEL MAKER, RHONDA 719.40 JOINT PAIN, LOCALIZED 09/18/2010 MAXWELL DO, LONDON K 466.0 BRONCHITIS, ACUTE 09/18/2010 MAXWELL DO, LONDON K 719.40 JOINT PAIN, LOCALIZED 09/18/2010 ROCIO TASSEL MAKER, RHONDA 466.0 BRONCHITIS, ACUTE 09/18/2010 ROCIO TASSEL MAKER, RHONDA 719.40 JOINT PAIN, LOCALIZED 09/18/2010 TARIK TASSEL MAKER, MONTRELL R 466.0 BRONCHITIS, ACUTE 09/18/2010 TARIK TASSEL MAKER, MONTRELL R 719.40 JOINT PAIN, LOCALIZED 09/24/2010 ANDRES HARDWICK DO F 296.90 MO MOOD DIS NOS 09/24/2010 ANDRES HARDWICK DO F 301.83 PD BORDERLINE 09/24/2010 ANDRES HARDWICK DO F 380.4 CERUMEN IMPACTION 09/24/2010 ANDRES HARDWICK DO F 296.90 MO MOOD DIS NOS 09/24/2010 ANDRES HARDWICK DO F 301.83 PD BORDERLINE 09/24/2010 ANDRES HARDWICK DO F 380.4 CERUMEN IMPACTION 09/24/2010 296.90 MO MOOD DIS NOS 09/24/2010 301.83 PD BORDERLINE 09/24/2010 380.4 CERUMEN IMPACTION 09/24/2010 CAROLYNE STARR MD 296.90 MO MOOD DIS NOS 09/24/2010 CAROLYNE STARR MD 301.83 PD BORDERLINE 09/24/2010 CAROLYNE STARR MD 380.4 CERUMEN IMPACTION 09/24/2010 CAROLYNE STARR MD 296.90 MO MOOD DIS NOS 09/24/2010 CAROLYNE STARR MD 301.83 PD BORDERLINE 09/24/2010 CAROLYNE STARR MD 380.4 CERUMEN IMPACTION 09/24/2010 ANDRES HARDWICK DO 296.90 MO MOOD DIS NOS 09/24/2010 WERDER DO, ANDRES F 301.83 PD BORDERLINE 09/24/2010 RONEN DOANDRES F 380.4 CERUMEN IMPACTION 09/24/2010 RONEN DOANDRES F 296.90 MO MOOD DIS NOS 09/24/2010 RONEN DOMACYEN F 301.83 PD BORDERLINE 09/24/2010 RONEN DOANDRES F 380.4 CERUMEN IMPACTION 09/24/2010 296.90 MO MOOD DIS NOS 09/24/2010 301.83 PD BORDERLINE 09/24/2010 380.4 CERUMEN IMPACTION 09/24/2010 296.90 MO MOOD DIS NOS 09/24/2010 301.83 PD BORDERLINE 09/24/2010 380.4 CERUMEN IMPACTION 09/24/2010 296.90 MO MOOD DIS NOS 09/24/2010 301.83 PD BORDERLINE 09/24/2010 380.4 CERUMEN IMPACTION 09/24/2010 296.90 MO MOOD DIS NOS 09/24/2010 301.83 PD BORDERLINE 09/24/2010 380.4 CERUMEN IMPACTION 09/24/2010 296.90 MO MOOD DIS NOS 09/24/2010 301.83 PD BORDERLINE 09/24/2010 380.4 CERUMEN IMPACTION 09/24/2010 RONEN DOANDRES F 296.90 MO MOOD DIS NOS 09/24/2010 RONEN DOANDRES F 301.83 PD BORDERLINE 09/24/2010 RONEN DOANDRES F 380.4 CERUMEN IMPACTION 09/24/2010 ANGELICA CARVER PHD 296.90 MO MOOD DIS NOS 09/24/2010 ANGELICA CARVER PHD 301.83 PD BORDERLINE 09/24/2010 ANGELICA CARVER PHD 380.4 CERUMEN IMPACTION 09/24/2010 ANGELICA CARVER PHD 296.90 MO MOOD DIS NOS 09/24/2010 MEHUL BEYER, ANGELICA Rawls 301.83 PD BORDERLINE 09/24/2010 MEHUL BEYER, ANGELICA Rawls 380.4 CERUMEN IMPACTION 09/24/2010 LEIGH VELASCO MD 296.90 MO MOOD DIS NOS 09/24/2010 LEIGH VELASCO MD 301.83 PD BORDERLINE 09/24/2010 LEIGH VELASCO MD 380.4 CERUMEN IMPACTION 09/24/2010 SIRENA LEMA APRN 296.90 MO MOOD DIS NOS 09/24/2010 SIRENA LEMA APRN 301.83 PD BORDERLINE 09/24/2010 SIRENA LEMA APRN 380.4 CERUMEN IMPACTION 09/24/2010 CAROLYNE STARR MD 296.90 MO MOOD DIS NOS 09/24/2010 CAROLYNE STARR MD 301.83 PD BORDERLINE 09/24/2010 CAROLYNE STARR MD 380.4 CERUMEN IMPACTION 09/24/2010 MEHUL PHD, ANGELICA Rawls 296.90 MO MOOD DIS NOS 09/24/2010 MEHUL PHD, ANGELICA Rawls 301.83 PD BORDERLINE 09/24/2010 MEHUL PHD, ANGELICA Rawls 380.4 CERUMEN IMPACTION 09/24/2010 SIRENA LEMA APRN 296.90 MO MOOD DIS NOS 09/24/2010 SIRENA LEMA APRN 301.83 PD BORDERLINE 09/24/2010 SIRENA LEMA APRN 380.4 CERUMEN IMPACTION 09/24/2010 LEIGH VELASCO MD 296.90 MO MOOD DIS NOS 09/24/2010 LEIGH VELASCO MD 301.83 PD BORDERLINE 09/24/2010 LEIGH VELASCO MD 380.4 CERUMEN IMPACTION 09/24/2010 SIRENA LEMA APRN 296.90 MO MOOD DIS NOS 09/24/2010 SIRENA LEMA APRN 301.83 PD BORDERLINE 09/24/2010 SIRENA LEMA APRN 380.4 CERUMEN IMPACTION 09/24/2010 SIRENA LEMA APRN 296.90 MO MOOD DIS NOS 09/24/2010 SIRENA LEMA APRN 301.83 PD BORDERLINE 09/24/2010 SIRENA LEMA APRN 380.4 CERUMEN IMPACTION 09/24/2010 KIEL FABIAN APRN A 296.90 MO MOOD DIS NOS 09/24/2010 RUI KENDALL KIEL A 301.83 PD BORDERLINE 09/24/2010 RUI KENDALL KIEL A 380.4 CERUMEN IMPACTION 09/24/2010 CAROLYNE STARR MD 296.90 MO MOOD DIS NOS 09/24/2010 CAROLYNE STARR MD 301.83 PD BORDERLINE 09/24/2010 RO HUDSON, CAROLYNE 380.4 CERUMEN IMPACTION 09/24/2010 SHERI HALEY APRN T 296.90 MO MOOD DIS NOS 09/24/2010 SHERI HALEY APRN T 301.83 PD BORDERLINE 09/24/2010 SHERI HALEY APRN T 380.4 CERUMEN IMPACTION 09/24/2010 ROCIO TASSEL MAKER, RHONDA 296.90 MO MOOD DIS NOS 09/24/2010 ROCIO TASSEL MAKER, RHONDA 301.83 PD BORDERLINE 09/24/2010 ROCIO TASSEL MAKER, RHONDA 380.4 CERUMEN IMPACTION 09/24/2010 MAXWELL DO, LONDON K 296.90 MO MOOD DIS NOS 09/24/2010 MAXWELL DO, LONDON K 301.83 PD BORDERLINE 09/24/2010 MAXWELL DO, LONDON K 380.4 CERUMEN IMPACTION 09/24/2010 ROCIO TASSEL MAKER, RHONDA 296.90 MO MOOD DIS NOS 09/24/2010 ROCIO TASSEL MAKER, RHONDA 301.83 PD BORDERLINE 09/24/2010 ROCIO TASSEL MAKER, RHONDA 380.4 CERUMEN IMPACTION 09/24/2010 MAXWELL DO, LONDON K 296.90 MO MOOD DIS NOS 09/24/2010 MAXWELL DO, LONDON K 301.83 PD BORDERLINE 09/24/2010 MAXWELL DO, LONDON K 380.4 CERUMEN IMPACTION 09/24/2010 SHERI HALEY APRN T 296.90 MO MOOD DIS NOS 09/24/2010 SHERI HALEY APRN T 301.83 PD BORDERLINE 09/24/2010 SHERI HALEY APRN T 380.4 CERUMEN IMPACTION 09/24/2010 ROCIO TASSEL MAKER, RHONDA 296.90 MO MOOD DIS NOS 09/24/2010 ROCIO TASSEL MAKER, RHONDA 301.83 PD BORDERLINE 09/24/2010 ROCIO TASSEL MAKER, RHONDA 380.4 CERUMEN IMPACTION 09/24/2010 SHERI HALEY APRN 296.90 MO MOOD DIS NOS 09/24/2010 SHERI HALEY APRN 301.83 PD BORDERLINE 09/24/2010 SHERI HALEY APRN T 380.4 CERUMEN IMPACTION 09/24/2010 ROCIO TASSEL MAKER, RHONDA 296.90 MO MOOD DIS NOS 09/24/2010 ROCIO TASSEL MAKER, RHONDA 301.83 PD BORDERLINE 09/24/2010 ROCIO TASSEL MAKER, RHONDA 380.4 CERUMEN IMPACTION 09/24/2010 MAXWELL DO, LONDON K 296.90 MO MOOD DIS NOS 09/24/2010 MAXWELL DO, LONDON K 301.83 PD BORDERLINE 09/24/2010 MAXWELL DO, LONDON K 380.4 CERUMEN IMPACTION 09/24/2010 ROCIO TASSEL MAKER, RHONDA 296.90 MO MOOD DIS NOS 09/24/2010 ROCIO TASSEL MAKER, RHONDA 301.83 PD BORDERLINE 09/24/2010 ROCIO TASSEL MAKER, RHONDA 380.4 CERUMEN IMPACTION 09/24/2010 TARIK TASSEL MAKER, MONTRELL R 296.90 MO MOOD DIS NOS 09/24/2010 TARIK TASSEL MAKER, MONTRELL R 301.83 PD BORDERLINE 09/24/2010 TARIK TASSEL MAKER, MONTRELL R 380.4 CERUMEN IMPACTION 10/22/2010 ANDRES HARDWICK DO 784.0 HEADACHE 10/22/2010 ANDRES HARDWICK DO 784.0 HEADACHE 10/22/2010 784.0 HEADACHE 10/22/2010 CAROLYNE STARR MD 784.0 HEADACHE 10/22/2010 CAROLYNE STARR MD 784.0 HEADACHE 10/22/2010 ANDRES HARDWICK DO 784.0 HEADACHE 10/22/2010 ANDRES HARDWICK DO 784.0 HEADACHE 10/22/2010 784.0 HEADACHE 10/22/2010 784.0 HEADACHE 10/22/2010 784.0 HEADACHE 10/22/2010 784.0 HEADACHE 10/22/2010 784.0 HEADACHE 10/22/2010 ANDRES HARDWICK DO 784.0 HEADACHE 10/22/2010 MEHUL PHD, ANGELICA Rawls 784.0 HEADACHE 10/22/2010 MEHUL PHD, ANGELICA Rawls 784.0 HEADACHE 10/22/2010 KRISTA HUDSON, LEIGH Rodriguez 784.0 HEADACHE 10/22/2010 SIRENA LEMA APRN 784.0 HEADACHE 10/22/2010 CAROLYNE STARR MD 784.0 HEADACHE 10/22/2010 MEHUL PHD, ANGELICA Rawls 784.0 HEADACHE 10/22/2010 SIRENA LEMA APRN 784.0 HEADACHE 10/22/2010 LEIGH VELASCO MD 784.0 HEADACHE 10/22/2010 SIRENA LEMA APRN 784.0 HEADACHE 10/22/2010 GARTON TASSEL MAKER, SIRENA D 784.0 HEADACHE 10/22/2010 RUI TASSEL MAKER, KIEL A 784.0 HEADACHE 10/22/2010 CAROLYNE STARR MD 784.0 HEADACHE 10/22/2010 TERA TASSEL MAKER, SHERI T 784.0 HEADACHE 10/22/2010 ROCIO TASSEL MAKER, RHONDA 784.0 HEADACHE 10/22/2010 MAXWELL DO, LONDON K 784.0 HEADACHE 10/22/2010 ROCIO TASSEL MAKER, RHONDA 784.0 HEADACHE 10/22/2010 MAXWELL DO, LONDON K 784.0 HEADACHE 10/22/2010 TERA TASSEL MAKER, SHERI T 784.0 HEADACHE 10/22/2010 ROCIO TASSEL MAKER, RHONDA 784.0 HEADACHE 10/22/2010 TERA TASSEL MAKER, SHERI T 784.0 HEADACHE 10/22/2010 ROCIO TASSEL MAKER, RHONDA 784.0 HEADACHE 10/22/2010 MAXWELL DO, LONDON K 784.0 HEADACHE 10/22/2010 ROCIO TASSEL MAKER, RHONDA 784.0 HEADACHE 10/22/2010 TARIK TASSEL MAKER, MONTRELL R 784.0 HEADACHE 11/08/2010 ANDRES HARDWICK DO 300.00 AN ANXIETY UNSPEC 11/08/2010 ANDRES HARDWICK DO 300.00 AN ANXIETY UNSPEC 11/08/2010 300.00 AN ANXIETY UNSPEC 11/08/2010 CAROLYNE STARR MD 300.00 AN ANXIETY UNSPEC 11/08/2010 CAROLYNE STARR MD 300.00 AN ANXIETY UNSPEC 11/08/2010 ANDRES HARDWICK DO 300.00 AN ANXIETY UNSPEC 11/08/2010 ANDRES HARDWICK DO 300.00 AN ANXIETY UNSPEC 11/08/2010 300.00 AN ANXIETY UNSPEC 11/08/2010 300.00 AN ANXIETY UNSPEC 11/08/2010 300.00 AN ANXIETY UNSPEC 11/08/2010 300.00 AN ANXIETY UNSPEC 11/08/2010 300.00 AN ANXIETY UNSPEC 11/08/2010 ANDRES HARDWICK DO 300.00 AN ANXIETY UNSPEC 11/08/2010 MEHUL BEYER, ANGELICA Rawls 300.00 AN ANXIETY UNSPEC 11/08/2010 ANGELICA CARVER PHD 300.00 AN ANXIETY UNSPEC 11/08/2010 LEIGH VELASCO MD 300.00 AN ANXIETY UNSPEC 11/08/2010 SIRENA LEMA APRN 300.00 AN ANXIETY UNSPEC 11/08/2010 CAROLYNE STARR MD 300.00 AN ANXIETY UNSPEC 11/08/2010 MEHUL BEYER, ANGELICA Rawls 300.00 AN ANXIETY UNSPEC 11/08/2010 SIRENA LEMA APRN 300.00 AN ANXIETY UNSPEC 11/08/2010 LEIGH VELASCO MD 300.00 AN ANXIETY UNSPEC 11/08/2010 SIRENA LEMA APRN 300.00 AN ANXIETY UNSPEC 11/08/2010 SIRENA LEMA APRN 300.00 AN ANXIETY UNSPEC 11/08/2010 KIEL FABIAN APRN A 300.00 AN ANXIETY UNSPEC 11/08/2010 CAROLYNE STARR MD 300.00 AN ANXIETY UNSPEC 11/08/2010 SHERI HALEY APRN 300.00 AN ANXIETY UNSPEC 11/08/2010 RHONDA CHAN APRN 300.00 AN ANXIETY UNSPEC 11/08/2010 LONDON MAXWELL DO K 300.00 AN ANXIETY UNSPEC 11/08/2010 FAYE CHAN APRNETTE 300.00 AN ANXIETY UNSPEC 11/08/2010 [place] MAXWELL DO K 300.00 AN ANXIETY UNSPEC 11/08/2010 SHERI HALEY APRN 300.00 AN ANXIETY UNSPEC 11/08/2010 FAYE CHAN APRNETTE 300.00 AN ANXIETY UNSPEC 11/08/2010 SHERI HALEY APRN 300.00 AN ANXIETY UNSPEC 11/08/2010 ROCIO KENDALL RHONDA 300.00 AN ANXIETY UNSPEC 11/08/2010 [place] MAXWELL DO K 300.00 AN ANXIETY UNSPEC 11/08/2010 RHONDA CHAN APRN 300.00 AN ANXIETY UNSPEC 11/08/2010 TARIK KENDALL MONTRELL R 300.00 AN ANXIETY UNSPEC 12/03/2010 ANDRES HARDWICK DO 296.80 BIPOLAR DISORDER NOS 12/03/2010 ANDRES HARDWICK DO 296.80 BIPOLAR DISORDER NOS 12/03/2010 296.80 BIPOLAR DISORDER NOS 12/03/2010 CAROLYNE STARR MD 296.80 BIPOLAR DISORDER NOS 12/03/2010 CAROLYNE STARR MD 296.80 BIPOLAR DISORDER NOS 12/03/2010 ANDRES HARDWICK DO 296.80 BIPOLAR DISORDER NOS 12/03/2010 WERDER DO, ANDRES F 296.80 BIPOLAR DISORDER NOS 12/03/2010 296.80 BIPOLAR DISORDER NOS 12/03/2010 296.80 BIPOLAR DISORDER NOS 12/03/2010 296.80 BIPOLAR DISORDER NOS 12/03/2010 296.80 BIPOLAR DISORDER NOS 12/03/2010 296.80 BIPOLAR DISORDER NOS 12/03/2010 ANDRES HARDWICK DO 296.80 BIPOLAR DISORDER NOS 12/03/2010 MEHUL PHD, ANGELICA Rawls 296.80 BIPOLAR DISORDER NOS 12/03/2010 MEHUL PHD, ANGELICA Rawls 296.80 BIPOLAR DISORDER NOS 12/03/2010 KRISTA HUDSON, LEIGH Rodriguez 296.80 BIPOLAR DISORDER NOS 12/03/2010 SIRENA LEMA APRN 296.80 BIPOLAR DISORDER NOS 12/03/2010 RO HUDSON, CAROLYNE 296.80 BIPOLAR DISORDER NOS 12/03/2010 MEHUL BEYER, ANGELICA Rawls 296.80 BIPOLAR DISORDER NOS 12/03/2010 SIRENA LEMA APRN 296.80 BIPOLAR DISORDER NOS 12/03/2010 KRISTA HUDSON, LEIGH Rodriguez 296.80 BIPOLAR DISORDER NOS 12/03/2010 SIRENA LEMA APRN 296.80 BIPOLAR DISORDER NOS 12/03/2010 SIRENA LEMA APRN 296.80 BIPOLAR DISORDER NOS 12/03/2010 KIEL FABIAN APRN 296.80 BIPOLAR DISORDER NOS 12/03/2010 CAROLYNE STARR MD 296.80 BIPOLAR DISORDER NOS 12/03/2010 SHERI HAELY APRN T 296.80 BIPOLAR DISORDER NOS 12/03/2010 ROCIO TASSEL MAKER, RHONDA 296.80 BIPOLAR DISORDER NOS 12/03/2010 MAXWELL DO [place] K 296.80 BIPOLAR DISORDER NOS 12/03/2010 ROCIO TASSEL MAKER, RHONDA 296.80 BIPOLAR DISORDER NOS 12/03/2010 MAXWELL DO [place] K 296.80 BIPOLAR DISORDER NOS 12/03/2010 TERA KENDALL SHERI T 296.80 BIPOLAR DISORDER NOS 12/03/2010 ROCIO TASSEL MAKER, RHONDA 296.80 BIPOLAR DISORDER NOS 12/03/2010 TERA KENDALL SHERI T 296.80 BIPOLAR DISORDER NOS 12/03/2010 ROCIO TASSEL MAKER, RHONDA 296.80 BIPOLAR DISORDER NOS 12/03/2010 MAXWELL DO, [place] K 296.80 BIPOLAR DISORDER NOS 12/03/2010 ROCIO TASSEL MAKER, RHONDA 296.80 BIPOLAR DISORDER NOS 12/03/2010 TARIK KENDALL MONTRELL R 296.80 BIPOLAR DISORDER NOS 12/14/2010 GAGEDER DO, ANDRES F 782.3 EDEMA 12/14/2010 RONEN DO, ANDRES F V58.69 MEDICATION HIGH RISK 12/14/2010 GAGEDER DO, ANDRES F 782.3 EDEMA 12/14/2010 RONEN DO ANDRES F V58.69 MEDICATION HIGH RISK 12/14/2010 782.3 EDEMA 12/14/2010 V58.69 MEDICATION HIGH RISK 12/14/2010 RO HUDSON, CAROLYNE 782.3 EDEMA 12/14/2010 RO HUDSON, CAROLYNE V58.69 MEDICATION HIGH RISK 12/14/2010 RO HUDSON, CAROLYNE 782.3 EDEMA 12/14/2010 RO HUDSON, CAROLYNE V58.69 MEDICATION HIGH RISK 12/14/2010 RONEN FIGUEROA ANDRES F 782.3 EDEMA 12/14/2010 RONEN DO ANDRES F V58.69 MEDICATION HIGH RISK 12/14/2010 RONEN FIGUEROA ANDRES F 782.3 EDEMA 12/14/2010 RONEN FIGUEROA ANDRES F V58.69 MEDICATION HIGH RISK 12/14/2010 782.3 EDEMA 12/14/2010 V58.69 MEDICATION HIGH RISK 12/14/2010 782.3 EDEMA 12/14/2010 V58.69 MEDICATION HIGH RISK 12/14/2010 782.3 EDEMA 12/14/2010 V58.69 MEDICATION HIGH RISK 12/14/2010 782.3 EDEMA 12/14/2010 V58.69 MEDICATION HIGH RISK 12/14/2010 782.3 EDEMA 12/14/2010 V58.69 MEDICATION HIGH RISK 12/14/2010 [facility] 782.3 EDEMA 12/14/2010 [facility] ANDRES F V58.69 MEDICATION HIGH RISK 12/14/2010 MEHUL PHD, ANGELICA Rawls 782.3 EDEMA 12/14/2010 MEHUL PHD, ANGELICA Rawls V58.69 MEDICATION HIGH RISK 12/14/2010 MEHUL PHD, ANGELICA Rawls 782.3 EDEMA 12/14/2010 MEHUL PHD, ANGELICA Rawls V58.69 MEDICATION HIGH RISK 12/14/2010 KRISTA HUDSON, LEIGH Rodriguez 782.3 EDEMA 12/14/2010 KRISTA HUDSON, LEIGH Rodriguez V58.69 MEDICATION HIGH RISK 12/14/2010 SIRENA LEMA APRN 782.3 EDEMA 12/14/2010 SIRENA LEMA APRN V58.69 MEDICATION HIGH RISK 12/14/2010 CAROLYNE STARR MD 782.3 EDEMA 12/14/2010 CAROLYNE STARR MD V58.69 MEDICATION HIGH RISK 12/14/2010 MEHUL PHD, ANGELICA Rawls 782.3 EDEMA 12/14/2010 MEHUL PHD, ANGELICA Rawls V58.69 MEDICATION HIGH RISK 12/14/2010 SIRENA LEMA APRN 782.3 EDEMA 12/14/2010 SIRENA LEMA APRN V58.69 MEDICATION HIGH RISK 12/14/2010 KRISTA HUDSON, LEIGH Rodriguez 782.3 EDEMA 12/14/2010 LEIGH VELASCO MD V58.69 MEDICATION HIGH RISK 12/14/2010 SIRENA LEMA APRN 782.3 EDEMA 12/14/2010 SIRENA LEMA APRN V58.69 MEDICATION HIGH RISK 12/14/2010 SIRENA LEMA APRN 782.3 EDEMA 12/14/2010 SIRENA LEMA APRN V58.69 MEDICATION HIGH RISK 12/14/2010 KIEL FABIAN APRN 782.3 EDEMA 12/14/2010 KIEL FABIAN APRN A V58.69 MEDICATION HIGH RISK 12/14/2010 CAROLYNE STARR MD 782.3 EDEMA 12/14/2010 CAROLYNE STARR MD V58.69 MEDICATION HIGH RISK 12/14/2010 SHERI HALEY APRN 782.3 EDEMA 12/14/2010 SHERI HALEY APRN V58.69 MEDICATION HIGH RISK 12/14/2010 FAYE CHAN APRNETTE 782.3 EDEMA 12/14/2010 ROCIO KENDALL RHONDA V58.69 MEDICATION HIGH RISK 12/14/2010 YANET MAXWELL DOA K 782.3 EDEMA 12/14/2010 YANET MAXWELL DOA K V58.69 MEDICATION HIGH RISK 12/14/2010 ROCIO TASSEL MAKER, RHONDA 782.3 EDEMA 12/14/2010 ROCIO TASSEL MAKER, RHONDA V58.69 MEDICATION HIGH RISK 12/14/2010 MAXWELL DO, [place] K 782.3 EDEMA 12/14/2010 MAXWELL DO, [place] K V58.69 MEDICATION HIGH RISK 12/14/2010 TERA TASSEL MAKER, SHERI T 782.3 EDEMA 12/14/2010 TERA TASSEL MAKER, SHERI T V58.69 MEDICATION HIGH RISK 12/14/2010 ROCIO TASSEL MAKER, RHONDA 782.3 EDEMA 12/14/2010 ROCIO TASSEL MAKER, RHONDA V58.69 MEDICATION HIGH RISK 12/14/2010 TERA TASSEL MAKER, SHERI T 782.3 EDEMA 12/14/2010 TERA TASSEL MAKER, SHERI T V58.69 MEDICATION HIGH RISK 12/14/2010 ROCIO TASSEL MAKER, RHONDA 782.3 EDEMA 12/14/2010 ROCIO TASSEL MAKER, RHONDA V58.69 MEDICATION HIGH RISK 12/14/2010 MAXWELL DO, [place] K 782.3 EDEMA 12/14/2010 MAXWELL DO, [place] K V58.69 MEDICATION HIGH RISK 12/14/2010 ROCIO TASSEL MAKER, RHONDA 782.3 EDEMA 12/14/2010 ROCIO TASSEL MAKER, RHONDA V58.69 MEDICATION HIGH RISK 12/14/2010 TARIK TASSEL MAKER, MONTRELL R 782.3 EDEMA 12/14/2010 TARIK TASSEL MAKER, MONTRELL R V58.69 MEDICATION HIGH RISK 01/12/2011 ANDRES HARDWICK DO 372.30 CONJUNCTIVITIS UNSPECIFIED 01/12/2011 ANDRES HARDWICK DO 372.30 CONJUNCTIVITIS UNSPECIFIED 01/12/2011 372.30 CONJUNCTIVITIS UNSPECIFIED 01/12/2011 CAROLYNE STARR MD 372.30 CONJUNCTIVITIS UNSPECIFIED 01/12/2011 CAROLYNE STARR MD 372.30 CONJUNCTIVITIS UNSPECIFIED 01/12/2011 ANDRES HARDWICK DO 372.30 CONJUNCTIVITIS UNSPECIFIED 01/12/2011 ANDRES HARDWICK DO 372.30 CONJUNCTIVITIS UNSPECIFIED 01/12/2011 372.30 CONJUNCTIVITIS UNSPECIFIED 01/12/2011 372.30 CONJUNCTIVITIS UNSPECIFIED 01/12/2011 372.30 CONJUNCTIVITIS UNSPECIFIED 01/12/2011 372.30 CONJUNCTIVITIS UNSPECIFIED 01/12/2011 372.30 CONJUNCTIVITIS UNSPECIFIED 01/12/2011 ANDRES HARDWICK DO 372.30 CONJUNCTIVITIS UNSPECIFIED 01/12/2011 MEHUL BEYER, ANGELICA Rawls 372.30 CONJUNCTIVITIS UNSPECIFIED 01/12/2011 ANGELICA CARVER PHD 372.30 CONJUNCTIVITIS UNSPECIFIED 01/12/2011 KRISTA HUDSON, LEIGH Rodriguez 372.30 CONJUNCTIVITIS UNSPECIFIED 01/12/2011 SIRENA LEMA APRN 372.30 CONJUNCTIVITIS UNSPECIFIED 01/12/2011 CAROLYNE STARR MD 372.30 CONJUNCTIVITIS UNSPECIFIED 01/12/2011 MEHUL BEYER, ANGELICA Rawls 372.30 CONJUNCTIVITIS UNSPECIFIED 01/12/2011 SIRENA LEMA APRN 372.30 CONJUNCTIVITIS UNSPECIFIED 01/12/2011 KRISTA HUDSON, LEIGH Rodriguez 372.30 CONJUNCTIVITIS UNSPECIFIED 01/12/2011 SIRENA LEMA APRN 372.30 CONJUNCTIVITIS UNSPECIFIED 01/12/2011 SIRENA LEMA APRN 372.30 CONJUNCTIVITIS UNSPECIFIED 01/12/2011 KIEL FABIAN APRN 372.30 CONJUNCTIVITIS UNSPECIFIED 01/12/2011 RO HUDSON, CAROLYNE 372.30 CONJUNCTIVITIS UNSPECIFIED 01/12/2011 SHERI HALEY APRN 372.30 CONJUNCTIVITIS UNSPECIFIED 01/12/2011 ROCIO TASSEL MAKER, RHONDA 372.30 CONJUNCTIVITIS UNSPECIFIED 01/12/2011 MAXWELL DO, [place] K 372.30 CONJUNCTIVITIS UNSPECIFIED 01/12/2011 ROCIO TASSEL MAKER, RHONDA 372.30 CONJUNCTIVITIS UNSPECIFIED 01/12/2011 MAXWELL DO, [place] K 372.30 CONJUNCTIVITIS UNSPECIFIED 01/12/2011 SHERI HALEY APRN T 372.30 CONJUNCTIVITIS UNSPECIFIED 01/12/2011 ROCIO TASSEL MAKER, RHONDA 372.30 CONJUNCTIVITIS UNSPECIFIED 01/12/2011 SHERI HALEY APRN 372.30 CONJUNCTIVITIS UNSPECIFIED 01/12/2011 ROCIO TASSEL MAKER, RHONDA 372.30 CONJUNCTIVITIS UNSPECIFIED 01/12/2011 MAXWELL DO, [place] K 372.30 CONJUNCTIVITIS UNSPECIFIED 01/12/2011 ROCIO TASSEL MAKER, RHONDA 372.30 CONJUNCTIVITIS UNSPECIFIED 01/12/2011 TARIK KENDALL MONTRELL R 372.30 CONJUNCTIVITIS UNSPECIFIED 01/30/2011 ANDRES HARDWICK DO F 461.9 SINUSITIS ACUTE 01/30/2011 ANDRES HARDWICK DO F 787.03 VOMITING ALONE 01/30/2011 ANDRES HARDWICK DO F 461.9 SINUSITIS ACUTE 01/30/2011 ANDRES HARDWICK DO F 787.03 VOMITING ALONE 01/30/2011 461.9 SINUSITIS ACUTE 01/30/2011 787.03 VOMITING ALONE 01/30/2011 RO HUDSON, CAROLYNE 461.9 SINUSITIS ACUTE 01/30/2011 CAROLYNE STARR MD 787.03 VOMITING ALONE 01/30/2011 RO HUDSON, CAROLYNE 461.9 SINUSITIS ACUTE 01/30/2011 CAROLYNE STARR MD 787.03 VOMITING ALONE 01/30/2011 ANDRES HARDWICK DO F 461.9 SINUSITIS ACUTE 01/30/2011 RONEN FIGUEROA ANDRES F 787.03 VOMITING ALONE 01/30/2011 GAGEPAULINO ANDRES F 461.9 SINUSITIS ACUTE 01/30/2011 RONEN FIGUEROA ANDRES F 787.03 VOMITING ALONE 01/30/2011 461.9 SINUSITIS ACUTE 01/30/2011 787.03 VOMITING ALONE 01/30/2011 461.9 SINUSITIS ACUTE 01/30/2011 787.03 VOMITING ALONE 01/30/2011 461.9 SINUSITIS ACUTE 01/30/2011 787.03 VOMITING ALONE 01/30/2011 461.9 SINUSITIS ACUTE 01/30/2011 787.03 VOMITING ALONE 01/30/2011 461.9 SINUSITIS ACUTE 01/30/2011 787.03 VOMITING ALONE 01/30/2011 ANDRES HARDWICK DO F 461.9 SINUSITIS ACUTE 01/30/2011 ANDRES HARDWICK DO F 787.03 VOMITING ALONE 01/30/2011 MEHUL BEYER, ANGELICA Rawls 461.9 SINUSITIS ACUTE 01/30/2011 MEHUL BEYER, ANGELICA Ralws 787.03 VOMITING ALONE 01/30/2011 MEHUL BEYER, ANGELICA Rawls 461.9 SINUSITIS ACUTE 01/30/2011 MEHUL BEYER, ANGELICA Rawls 787.03 VOMITING ALONE 01/30/2011 LEIGH VELASCO MD 461.9 SINUSITIS ACUTE 01/30/2011 LEIGH VELASCO MD 787.03 VOMITING ALONE 01/30/2011 SIRENA LEMA APRN 461.9 SINUSITIS ACUTE 01/30/2011 SIRENA LEMA APRN 787.03 VOMITING ALONE 01/30/2011 CAROLYNE STARR MD 461.9 SINUSITIS ACUTE 01/30/2011 CAROLYNE STARR MD 787.03 VOMITING ALONE 01/30/2011 MEHUL BEYER, ANGELICA Rawls 461.9 SINUSITIS ACUTE 01/30/2011 MEHUL BEYER, ANGELICA Rawls 787.03 VOMITING ALONE 01/30/2011 SIRENA LEMA APRN 461.9 SINUSITIS ACUTE 01/30/2011 SIRENA LEMA APRN 787.03 VOMITING ALONE 01/30/2011 LEIGH VELASCO MD 461.9 SINUSITIS ACUTE 01/30/2011 LEIGH VELASCO MD 787.03 VOMITING ALONE 01/30/2011 SIRENA ELMA APRN 461.9 SINUSITIS ACUTE 01/30/2011 SIRENA LEMA APRN 787.03 VOMITING ALONE 01/30/2011 SIRENA LEMA APRN 461.9 SINUSITIS ACUTE 01/30/2011 SIRENA LEMA APRN 787.03 VOMITING ALONE 01/30/2011 KIEL FABIAN APRN 461.9 SINUSITIS ACUTE 01/30/2011 KIEL FABIAN APRN A 787.03 VOMITING ALONE 01/30/2011 CAROLYNE STARR MD 461.9 SINUSITIS ACUTE 01/30/2011 CAROLYNE STARR MD 787.03 VOMITING ALONE 01/30/2011 SHERI HALEY APRN 461.9 SINUSITIS ACUTE 01/30/2011 SHERI HALEY APRN 787.03 VOMITING ALONE 01/30/2011 RHONDA CHAN APRN 461.9 SINUSITIS ACUTE 01/30/2011 ROCIOFAYE MEHTA APRNETTE 787.03 VOMITING ALONE 01/30/2011 MAXWELL DO, [place] K 461.9 SINUSITIS ACUTE 01/30/2011 MAXWELL DO, [place] K 787.03 VOMITING ALONE 01/30/2011 ROCIO FAYE KENDALLETTE 461.9 SINUSITIS ACUTE 01/30/2011 ROCIO RHONDA KENDALL 787.03 VOMITING ALONE 01/30/2011 MAXWELL DO, [place] K 461.9 SINUSITIS ACUTE 01/30/2011 MAXWELL DO, [place] K 787.03 VOMITING ALONE 01/30/2011 SHERI HALEY APRN 461.9 SINUSITIS ACUTE 01/30/2011 SHERI HALEY APRN 787.03 VOMITING ALONE 01/30/2011 ROCIO TASSEL MAKER, RHONDA 461.9 SINUSITIS ACUTE 01/30/2011 ROCIO TASSEL MAKER, RHONDA 787.03 VOMITING ALONE 01/30/2011 SHERI HALEY APRN 461.9 SINUSITIS ACUTE 01/30/2011 SHERI HALEY APRN 787.03 VOMITING ALONE 01/30/2011 ROCIO TASSEL MAKER, RHONDA 461.9 SINUSITIS ACUTE 01/30/2011 ROCIO TASSEL MAKER, RHONDA 787.03 VOMITING ALONE 01/30/2011 MAXWELL DO, [place] K 461.9 SINUSITIS ACUTE 01/30/2011 MAXWELL DO, [place] K 787.03 VOMITING ALONE 01/30/2011 ROCIO TASSEL MAKER, RHONDA 461.9 SINUSITIS ACUTE 01/30/2011 ROCIO TASSEL MAKER, RHONDA 787.03 VOMITING ALONE 01/30/2011 TARIK TASSEL MAKER, MONTRELL R 461.9 SINUSITIS ACUTE 01/30/2011 TARIK KENDALL, MONTRELL R 787.03 VOMITING ALONE 02/19/2011 Ot 278.00 OBESITY, NOS 02/19/2011 Ot 296.80 BIPOLAR DISORDER, UNSPECIFIED 02/19/2011 Ot 784.0 HEADACHE 02/19/2011 Ot 787.02 NAUSEA ALONE 02/19/2011 Ot 969.8 POISON-PSYCHOTROPIC NEC 02/19/2011 Ot E849.0 ACCIDENT IN HOME 02/19/2011 Ot E950.3 SUICIDE-PSYCHOTROPIC AGT 02/19/2011 Ot V60.2 ECONOMIC PROBLEM 02/19/2011 Ot V62.81 INTERPERSONAL PROBL NEC 02/19/2011 Ot V85.43 BODY MASS INDEX 50.0-59.9, ADULT 03/25/2011 ANDRES HARDWICK DO 296.89 MO BIPOLAR II 03/25/2011 ANDRES HARDWICK DO 296.89 MO BIPOLAR II 03/25/2011 296.89 MO BIPOLAR II 03/25/2011 CAROLYNE STARR MD 296.89 MO BIPOLAR II 03/25/2011 CAROLYNE STARR MD 296.89 MO BIPOLAR II 03/25/2011 ANDRES HARDWICK DO 296.89 MO BIPOLAR II 03/25/2011 ANDRES HARDWICK DO 296.89 MO BIPOLAR II 03/25/2011 296.89 MO BIPOLAR II 03/25/2011 296.89 MO BIPOLAR II 03/25/2011 296.89 MO BIPOLAR II 03/25/2011 296.89 MO BIPOLAR II 03/25/2011 296.89 MO BIPOLAR II 03/25/2011 ANDRES HARDWICK DO 296.89 MO BIPOLAR II 03/25/2011 MEHUL PHD, ANGELIAC Rawls 296.89 MO BIPOLAR II 03/25/2011 MEHUL PHD, ANGELICA Rawls 296.89 MO BIPOLAR II 03/25/2011 KRISTA HUDSON, LEIGH Rodriguez 296.89 MO BIPOLAR II 03/25/2011 SIRENA LEMA APRN 296.89 MO BIPOLAR II 03/25/2011 CAROLYNE STARR MD 296.89 MO BIPOLAR II 03/25/2011 MEHUL BEYER, ANGELICA Rawls 296.89 MO BIPOLAR II 03/25/2011 SIRENA LEMA APRN 296.89 MO BIPOLAR II 03/25/2011 KRISTA HUDSON, LEIGH Rodrgiuez 296.89 MO BIPOLAR II 03/25/2011 SIRENA LEMA APRN 296.89 MO BIPOLAR II 03/25/2011 SIRENA LEMA APRN 296.89 MO BIPOLAR II 03/25/2011 KIEL FABIAN APRN 296.89 MO BIPOLAR II 03/25/2011 CAROLYNE STARR MD 296.89 MO BIPOLAR II 03/25/2011 SHERI HALEY APRN 296.89 MO BIPOLAR II 03/25/2011 ROCIOFAYE MEHTA APRNETTE 296.89 MO BIPOLAR II 03/25/2011 [place] MAXWELL DO 296.89 MO BIPOLAR II 03/25/2011 FAYE CHAN APRNETTE 296.89 MO BIPOLAR II 03/25/2011 [place] MAXWELL DO K 296.89 MO BIPOLAR II 03/25/2011 SHERI HALEY APRN 296.89 MO BIPOLAR II 03/25/2011 ROCIO ENOCH RHONDA 296.89 MO BIPOLAR II 03/25/2011 SHERI HALEY APRN 296.89 MO BIPOLAR II 03/25/2011 RHONDA CHAN APRN 296.89 MO BIPOLAR II 03/25/2011 [place] MAXWELL DO K 296.89 MO BIPOLAR II 03/25/2011 ROCIOTYSON KENDALL RHONDA 296.89 MO BIPOLAR II 03/25/2011 MONTRELL MONTANEZ APRN 296.89 MO BIPOLAR II 05/04/2011 Ot 346.90 MIGRAINE UNSPECIFIED W/O INTRACT MGRN W/ 05/04/2011 Ot 784.0 HEADACHE 06/19/2011 Ot 558.9 NONINF GASTROENTERIT NEC 06/19/2011 Ot 787.91 DIARRHEA 08/03/2011 ANDRES HARDWICK DO 278.01 OBESITY MORBID 08/03/2011 ANDRES HARDWICK DO 692.9 CONTACT DERMATITIS AND OTHER ECZEMA UNSPECIFIED CAUSE 08/03/2011 ANDRES HARDWICK DO 278.01 OBESITY MORBID 08/03/2011 ANDRES HARDWICK DO 692.9 CONTACT DERMATITIS AND OTHER ECZEMA UNSPECIFIED CAUSE 08/03/2011 278.01 OBESITY MORBID 08/03/2011 692.9 CONTACT DERMATITIS AND OTHER ECZEMA UNSPECIFIED CAUSE 08/03/2011 CAROLYNE STARR MD 278.01 OBESITY MORBID 08/03/2011 CAROLYNE STARR MD 692.9 CONTACT DERMATITIS AND OTHER ECZEMA UNSPECIFIED CAUSE 08/03/2011 CAROLYNE STARR MD 278.01 OBESITY MORBID 08/03/2011 CAROLYNE STARR MD 692.9 CONTACT DERMATITIS AND OTHER ECZEMA UNSPECIFIED CAUSE 08/03/2011 ANDRES HARDWICK DO 278.01 OBESITY MORBID 08/03/2011 ANDRES HARDWICK DO 692.9 CONTACT DERMATITIS AND OTHER ECZEMA UNSPECIFIED CAUSE 08/03/2011 ANDRES HARDWICK DO 278.01 OBESITY MORBID 08/03/2011 ANDRES HARDWICK DO 692.9 CONTACT DERMATITIS AND OTHER ECZEMA UNSPECIFIED CAUSE 08/03/2011 278.01 OBESITY MORBID 08/03/2011 692.9 CONTACT DERMATITIS AND OTHER ECZEMA UNSPECIFIED CAUSE 08/03/2011 278.01 OBESITY MORBID 08/03/2011 692.9 CONTACT DERMATITIS AND OTHER ECZEMA UNSPECIFIED CAUSE 08/03/2011 278.01 OBESITY MORBID 08/03/2011 692.9 CONTACT DERMATITIS AND OTHER ECZEMA UNSPECIFIED CAUSE 08/03/2011 278.01 OBESITY MORBID 08/03/2011 692.9 CONTACT DERMATITIS AND OTHER ECZEMA UNSPECIFIED CAUSE 08/03/2011 278.01 OBESITY MORBID 08/03/2011 692.9 CONTACT DERMATITIS AND OTHER ECZEMA UNSPECIFIED CAUSE 08/03/2011 ANDRES HARDWICK DO 278.01 OBESITY MORBID 08/03/2011 ANDRES HARDWICK DO 692.9 CONTACT DERMATITIS AND OTHER ECZEMA UNSPECIFIED CAUSE 08/03/2011 MEHUL BEYER, ANGELICA Rawls 278.01 OBESITY MORBID 08/03/2011 MEHUL BEYER, ANGELICA Rawls 692.9 CONTACT DERMATITIS AND OTHER ECZEMA UNSPECIFIED CAUSE 08/03/2011 MEHUL BEYER, ANGELICA Rawls 278.01 OBESITY MORBID 08/03/2011 MEHUL BEYER, ANGELICA Rawls 692.9 CONTACT DERMATITIS AND OTHER ECZEMA UNSPECIFIED CAUSE 08/03/2011 LEIGH VELASCO MD 278.01 OBESITY MORBID 08/03/2011 LEIGH VELASCO MD 692.9 CONTACT DERMATITIS AND OTHER ECZEMA UNSPECIFIED CAUSE 08/03/2011 SIRENA LEMA APRN 278.01 OBESITY MORBID 08/03/2011 SIRENA LEMA APRN 692.9 CONTACT DERMATITIS AND OTHER ECZEMA UNSPECIFIED CAUSE 08/03/2011 CAROLYNE STARR MD 278.01 OBESITY MORBID 08/03/2011 CAROLYNE STARR MD2.9 CONTACT DERMATITIS AND OTHER ECZEMA UNSPECIFIED CAUSE 08/03/2011 MEHUL BEYER, ANGELICA Rawls 278.01 OBESITY MORBID 08/03/2011 ANGELICA CARVER PHD 692.9 CONTACT DERMATITIS AND OTHER ECZEMA UNSPECIFIED CAUSE 08/03/2011 SIRENA LEMA APRN 278.01 OBESITY MORBID 08/03/2011 SIRENA LEMA APRN 692.9 CONTACT DERMATITIS AND OTHER ECZEMA UNSPECIFIED CAUSE 08/03/2011 LEIGH VELASCO MD 278.01 OBESITY MORBID 08/03/2011 LEIGH VELASCO MD 692.9 CONTACT DERMATITIS AND OTHER ECZEMA UNSPECIFIED CAUSE 08/03/2011 SIRENA LEMA APRN D 278.01 OBESITY MORBID 08/03/2011 SIRENA LEMA APRN 692.9 CONTACT DERMATITIS AND OTHER ECZEMA UNSPECIFIED CAUSE 08/03/2011 SIRENA LEMA APRN D 278.01 OBESITY MORBID 08/03/2011 SIRENA LEMA APRN 692.9 CONTACT DERMATITIS AND OTHER ECZEMA UNSPECIFIED CAUSE 08/03/2011 KIEL FABIAN APRN 278.01 OBESITY MORBID 08/03/2011 KIEL FABIAN APRN 692.9 CONTACT DERMATITIS AND OTHER ECZEMA UNSPECIFIED CAUSE 08/03/2011 CAROLYNE STARR MD 278.01 OBESITY MORBID 08/03/2011 CAROLYNE STARR MD2.9 CONTACT DERMATITIS AND OTHER ECZEMA UNSPECIFIED CAUSE 08/03/2011 SHERI HALEY APRN 278.01 OBESITY MORBID 08/03/2011 SHERI HALEY APRN 692.9 CONTACT DERMATITIS AND OTHER ECZEMA UNSPECIFIED CAUSE 08/03/2011 ROCIO TASSEL MAKER, RHONDA 278.01 OBESITY MORBID 08/03/2011 ROCIO TASSEL MAKER, RHONDA 692.9 CONTACT DERMATITIS AND OTHER ECZEMA UNSPECIFIED CAUSE 08/03/2011 MAXWELL DO, [place] K 278.01 OBESITY MORBID 08/03/2011 MAXWELL DO, [place] K 692.9 CONTACT DERMATITIS AND OTHER ECZEMA UNSPECIFIED CAUSE 08/03/2011 ROCIO TASSEL MAKER, RHONDA 278.01 OBESITY MORBID 08/03/2011 ROCIO TASSEL MAKER, RHONDA 692.9 CONTACT DERMATITIS AND OTHER ECZEMA UNSPECIFIED CAUSE 08/03/2011 MAXWELL DO, [place] K 278.01 OBESITY MORBID 08/03/2011 MAXWELL DO, [place] K 692.9 CONTACT DERMATITIS AND OTHER ECZEMA UNSPECIFIED CAUSE 08/03/2011 SHERI HALEY APRN 278.01 OBESITY MORBID 08/03/2011 SHERI HALEY APRN 692.9 CONTACT DERMATITIS AND OTHER ECZEMA UNSPECIFIED CAUSE 08/03/2011 ROCIO TASSEL MAKER, RHONDA 278.01 OBESITY MORBID 08/03/2011 ROCIO KENDALL, RHONDA 692.9 CONTACT DERMATITIS AND OTHER ECZEMA UNSPECIFIED CAUSE 08/03/2011 SHERI HALEY APRN 278.01 OBESITY MORBID 08/03/2011 SHERI HALEY APRN 692.9 CONTACT DERMATITIS AND OTHER ECZEMA UNSPECIFIED CAUSE 08/03/2011 ROCIO TASSEL MAKER, RHONDA 278.01 OBESITY MORBID 08/03/2011 ROCIO KENDALL RHONDA 692.9 CONTACT DERMATITIS AND OTHER ECZEMA UNSPECIFIED CAUSE 08/03/2011 MAXWELL DO, [place] K 278.01 OBESITY MORBID 08/03/2011 MAXWELL DO, [place] K 692.9 CONTACT DERMATITIS AND OTHER ECZEMA UNSPECIFIED CAUSE 08/03/2011 ROCIO TASSEL MAKER, RHONDA 278.01 OBESITY MORBID 08/03/2011 ROCIO TASSEL MAKER, RHONDA 692.9 CONTACT DERMATITIS AND OTHER ECZEMA UNSPECIFIED CAUSE 08/03/2011 TARIK KENDALL MONTRELL R 278.01 OBESITY MORBID 08/03/2011 TARIK KENDALL, MONTRELL R 692.9 CONTACT DERMATITIS AND OTHER ECZEMA UNSPECIFIED CAUSE 10/01/2011 Ot 278.00 OBESITY, NOS 10/01/2011 Ot 296.80 BIPOLAR DISORDER, UNSPECIFIED 10/01/2011 Ot 300.00 ANXIETY STATE NOS 10/01/2011 Ot 372.30 CONJUNCTIVITIS NOS 10/01/2011 Ot 682.6 CELLULITIS OF LEG 10/01/2011 Ot 707.10 ULCER OF LOWER LIMB NOS 10/01/2011 Ot 757.39 SKIN ANOMALY NEC 10/01/2011 Ot V85.43 BODY MASS INDEX 50.0-59.9, ADULT 12/06/2011 ANDRES HARDWICK DO 686.9 UNSPECIFIED LOCAL INFECTION OF SKIN AND SUBCUTANEOUS TISSUE 12/06/2011 ANDRES HARDWICK DO 686.9 UNSPECIFIED LOCAL INFECTION OF SKIN AND SUBCUTANEOUS TISSUE 12/06/2011 686.9 UNSPECIFIED LOCAL INFECTION OF SKIN AND SUBCUTANEOUS TISSUE 12/06/2011 CAROLYNE STARR MD 686.9 UNSPECIFIED LOCAL INFECTION OF SKIN AND SUBCUTANEOUS TISSUE 12/06/2011 CAROLYNE STARR MD 686.9 UNSPECIFIED LOCAL INFECTION OF SKIN AND SUBCUTANEOUS TISSUE 12/06/2011 ANDRES HARDWICK DO 686.9 UNSPECIFIED LOCAL INFECTION OF SKIN AND SUBCUTANEOUS TISSUE 12/06/2011 ANDRES HARDWICK DO 686.9 UNSPECIFIED LOCAL INFECTION OF SKIN AND SUBCUTANEOUS TISSUE 12/06/2011 686.9 UNSPECIFIED LOCAL INFECTION OF SKIN AND SUBCUTANEOUS TISSUE 12/06/2011 686.9 UNSPECIFIED LOCAL INFECTION OF SKIN AND SUBCUTANEOUS TISSUE 12/06/2011 686.9 UNSPECIFIED LOCAL INFECTION OF SKIN AND SUBCUTANEOUS TISSUE 12/06/2011 686.9 UNSPECIFIED LOCAL INFECTION OF SKIN AND SUBCUTANEOUS TISSUE 12/06/2011 686.9 UNSPECIFIED LOCAL INFECTION OF SKIN AND SUBCUTANEOUS TISSUE 12/06/2011 ANDRES HARDWICK DO 686.9 UNSPECIFIED LOCAL INFECTION OF SKIN AND SUBCUTANEOUS TISSUE 12/06/2011 MEHUL BEYER, ANGELICA Rawls 686.9 UNSPECIFIED LOCAL INFECTION OF SKIN AND SUBCUTANEOUS TISSUE 12/06/2011 MEHUL BEYER, ANGELICA Rawls 686.9 UNSPECIFIED LOCAL INFECTION OF SKIN AND SUBCUTANEOUS TISSUE 12/06/2011 KRISTA HUDSON, LEIGH Rodriguez 686.9 UNSPECIFIED LOCAL INFECTION OF SKIN AND SUBCUTANEOUS TISSUE 12/06/2011 SIRENA LEMA APRN 686.9 UNSPECIFIED LOCAL INFECTION OF SKIN AND SUBCUTANEOUS TISSUE 12/06/2011 CAROLYNE STARR MD 686.9 UNSPECIFIED LOCAL INFECTION OF SKIN AND SUBCUTANEOUS TISSUE 12/06/2011 MEHUL BEYER, ANGELICA Rawls 686.9 UNSPECIFIED LOCAL INFECTION OF SKIN AND SUBCUTANEOUS TISSUE 12/06/2011 SIRENA LEMA APRN 686.9 UNSPECIFIED LOCAL INFECTION OF SKIN AND SUBCUTANEOUS TISSUE 12/06/2011 LEIGH VELASCO MD 686.9 UNSPECIFIED LOCAL INFECTION OF SKIN AND SUBCUTANEOUS TISSUE 12/06/2011 SIRENA LEMA APRN 686.9 UNSPECIFIED LOCAL INFECTION OF SKIN AND SUBCUTANEOUS TISSUE 12/06/2011 SIRENA LEMA APRN 686.9 UNSPECIFIED LOCAL INFECTION OF SKIN AND SUBCUTANEOUS TISSUE 12/06/2011 KIEL FABIAN APRN 686.9 UNSPECIFIED LOCAL INFECTION OF SKIN AND SUBCUTANEOUS TISSUE 12/06/2011 CAROLYNE STARR MD 686.9 UNSPECIFIED LOCAL INFECTION OF SKIN AND SUBCUTANEOUS TISSUE 12/06/2011 SHERI HALEY APRN 686.9 UNSPECIFIED LOCAL INFECTION OF SKIN AND SUBCUTANEOUS TISSUE 12/06/2011 ROCIO KENDALL, RHONDA 686.9 UNSPECIFIED LOCAL INFECTION OF SKIN AND SUBCUTANEOUS TISSUE 12/06/2011 [place]ON MAXWELL DO 686.9 UNSPECIFIED LOCAL INFECTION OF SKIN AND SUBCUTANEOUS TISSUE 12/06/2011 ROCIOTYSON KENDALL, RHONDA 686.9 UNSPECIFIED LOCAL INFECTION OF SKIN AND SUBCUTANEOUS TISSUE 12/06/2011 [place] MAXWELL DO 686.9 UNSPECIFIED LOCAL INFECTION OF SKIN AND SUBCUTANEOUS TISSUE 12/06/2011 SHERI HALEY APRN 686.9 UNSPECIFIED LOCAL INFECTION OF SKIN AND SUBCUTANEOUS TISSUE 12/06/2011 ROCIO KENDALL RHONDA 686.9 UNSPECIFIED LOCAL INFECTION OF SKIN AND SUBCUTANEOUS TISSUE 12/06/2011 SHERI HALEY APRN 686.9 UNSPECIFIED LOCAL INFECTION OF SKIN AND SUBCUTANEOUS TISSUE 12/06/2011 ROCIO TASSEL MAKER, RHONDA 686.9 UNSPECIFIED LOCAL INFECTION OF SKIN AND SUBCUTANEOUS TISSUE 12/06/2011 [place] MAXWELL DO 686.9 UNSPECIFIED LOCAL INFECTION OF SKIN AND SUBCUTANEOUS TISSUE 12/06/2011 ROCIO TASSEL MAKER, RHONDA 686.9 UNSPECIFIED LOCAL INFECTION OF SKIN AND SUBCUTANEOUS TISSUE 12/06/2011 MONTRELL MONTANEZ APRN 686.9 UNSPECIFIED LOCAL INFECTION OF SKIN AND SUBCUTANEOUS TISSUE 12/26/2011 WERDER DO, ANDRES F 388.70 OTALGIA UNSPECIFIED 12/26/2011 WERDER DO, ANDRES F 389.9 UNSPECIFIED HEARING LOSS 12/26/2011 WERDER DO, ANDRES F 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 12/26/2011 WERDER DO, ANDRES F 783.1 ABNORMAL WEIGHT GAIN 12/26/2011 WERDER DO, ANDRES F 388.70 OTALGIA UNSPECIFIED 12/26/2011 WERDER DO, ANDRES F 389.9 UNSPECIFIED HEARING LOSS 12/26/2011 WERDER DO, ANDRES F 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 12/26/2011 WERDER DO, ANDRES F 783.1 ABNORMAL WEIGHT GAIN 12/26/2011 388.70 OTALGIA UNSPECIFIED 12/26/2011 389.9 UNSPECIFIED HEARING LOSS 12/26/2011 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 12/26/2011 783.1 ABNORMAL WEIGHT GAIN 12/26/2011 CAROLYNE STARR MD 388.70 OTALGIA UNSPECIFIED 12/26/2011 CAROLYNE STARR MD 389.9 UNSPECIFIED HEARING LOSS 12/26/2011 CAROLYNE STARR MD 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 12/26/2011 CAROLYNE STARR MD 783.1 ABNORMAL WEIGHT GAIN 12/26/2011 CAROLYNE STARR MD 388.70 OTALGIA UNSPECIFIED 12/26/2011 CAROLYNE STARR MD 389.9 UNSPECIFIED HEARING LOSS 12/26/2011 CAROLYNE STARR MD 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 12/26/2011 CAROLYNE STARR MD 783.1 ABNORMAL WEIGHT GAIN 12/26/2011 WERDER DO ANDRES F 388.70 OTALGIA UNSPECIFIED 12/26/2011 WERDER DO, ANDRES F 389.9 UNSPECIFIED HEARING LOSS 12/26/2011 WERDER DO, ANDRES F 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 12/26/2011 WERDER DO, ANDRES F 783.1 ABNORMAL WEIGHT GAIN 12/26/2011 WERDER DO, ANDRES F 388.70 OTALGIA UNSPECIFIED 12/26/2011 WERDER DO, ANDRES F 389.9 UNSPECIFIED HEARING LOSS 12/26/2011 WERDER DO, ANDRES F 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 12/26/2011 WERDER DO, ANDRES F 783.1 ABNORMAL WEIGHT GAIN 12/26/2011 388.70 OTALGIA UNSPECIFIED 12/26/2011 389.9 UNSPECIFIED HEARING LOSS 12/26/2011 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 12/26/2011 783.1 ABNORMAL WEIGHT GAIN 12/26/2011 388.70 OTALGIA UNSPECIFIED 12/26/2011 389.9 UNSPECIFIED HEARING LOSS 12/26/2011 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 12/26/2011 783.1 ABNORMAL WEIGHT GAIN 12/26/2011 388.70 OTALGIA UNSPECIFIED 12/26/2011 389.9 UNSPECIFIED HEARING LOSS 12/26/2011 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 12/26/2011 783.1 ABNORMAL WEIGHT GAIN 12/26/2011 388.70 OTALGIA UNSPECIFIED 12/26/2011 389.9 UNSPECIFIED HEARING LOSS 12/26/2011 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 12/26/2011 783.1 ABNORMAL WEIGHT GAIN 12/26/2011 388.70 OTALGIA UNSPECIFIED 12/26/2011 389.9 UNSPECIFIED HEARING LOSS 12/26/2011 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 12/26/2011 783.1 ABNORMAL WEIGHT GAIN 12/26/2011 GAGEPAULINO ANDRES F 388.70 OTALGIA UNSPECIFIED 12/26/2011 ANDRES HARDWICK DO F 389.9 UNSPECIFIED HEARING LOSS 12/26/2011 RONEN FIGUEROA ANDRES F 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 12/26/2011 ANDRES HARDWICK DO F 783.1 ABNORMAL WEIGHT GAIN 12/26/2011 ANGELICA CARVER PHD 388.70 OTALGIA UNSPECIFIED 12/26/2011 ANGELICA CARVER PHD 389.9 UNSPECIFIED HEARING LOSS 12/26/2011 ANGELICA CARVER PHD 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 12/26/2011 ANGELICA CARVER PHD 783.1 ABNORMAL WEIGHT GAIN 12/26/2011 ANGELICA CARVER PHD 388.70 OTALGIA UNSPECIFIED 12/26/2011 ANGELICA CARVER PHD 389.9 UNSPECIFIED HEARING LOSS 12/26/2011 ANGELICA CARVER PHD 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 12/26/2011 ANGELICA CARVER PHD 783.1 ABNORMAL WEIGHT GAIN 12/26/2011 LEIGH VELASCO MD 388.70 OTALGIA UNSPECIFIED 12/26/2011 LEIGH VELASCO MD 389.9 UNSPECIFIED HEARING LOSS 12/26/2011 LEIGH VELASCO MD 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 12/26/2011 LEIGH VELASCO MD 783.1 ABNORMAL WEIGHT GAIN 12/26/2011 SIRENA LEMA APRN 388.70 OTALGIA UNSPECIFIED 12/26/2011 SIRENA LEMA APRN 389.9 UNSPECIFIED HEARING LOSS 12/26/2011 SRIENA LEMA APRN 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 12/26/2011 SIRENA LEMA APRN 783.1 ABNORMAL WEIGHT GAIN 12/26/2011 CAROLYNE STARR MD 388.70 OTALGIA UNSPECIFIED 12/26/2011 CAROLYNE STARR MD 389.9 UNSPECIFIED HEARING LOSS 12/26/2011 CAROLYNE STARR MD 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 12/26/2011 CAROLYNE STARR MD 783.1 ABNORMAL WEIGHT GAIN 12/26/2011 MEHUL BEYER, ANGELICA Rawls 388.70 OTALGIA UNSPECIFIED 12/26/2011 MEUHL BEYER, ANGELICA Rawls 389.9 UNSPECIFIED HEARING LOSS 12/26/2011 MEHUL BEYER, ANGELICA Rawls 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 12/26/2011 MEHUL BEYER, ANGELICA Rawls 783.1 ABNORMAL WEIGHT GAIN 12/26/2011 SIRENA LEMA APRN 388.70 OTALGIA UNSPECIFIED 12/26/2011 SIRENA LEMA APRN 389.9 UNSPECIFIED HEARING LOSS 12/26/2011 SIRENA LEMA APRN 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 12/26/2011 SIRENA LEMA APRN 783.1 ABNORMAL WEIGHT GAIN 12/26/2011 LEIGH VELASCO MD 388.70 OTALGIA UNSPECIFIED 12/26/2011 LEIGH VELASCO MD 389.9 UNSPECIFIED HEARING LOSS 12/26/2011 LEIGH VELASCO MD 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 12/26/2011 LEIGH VELASCO MD 783.1 ABNORMAL WEIGHT GAIN 12/26/2011 TOREY SIRENA KENDALL D 388.70 OTALGIA UNSPECIFIED 12/26/2011 TOREY SIRENA KENDALL D 389.9 UNSPECIFIED HEARING LOSS 12/26/2011 TOREY DAVIDLUPE DoughertySIRENA D 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 12/26/2011 TOREY SIRENA KENDALL D 783.1 ABNORMAL WEIGHT GAIN 12/26/2011 TOREY DAVIDSIRENA Dougherty D 388.70 OTALGIA UNSPECIFIED 12/26/2011 TOREY DAVIDSIRENA Dougherty D 389.9 UNSPECIFIED HEARING LOSS 12/26/2011 TOREY SIRENA KENDALL D 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 12/26/2011 TOREY DAVIDSIRENA Dougherty D 783.1 ABNORMAL WEIGHT GAIN 12/26/2011 BENEDICTO FABIAN APRNIDI A 388.70 OTALGIA UNSPECIFIED 12/26/2011 RUI KENDALL KIEL A 389.9 UNSPECIFIED HEARING LOSS 12/26/2011 RUI KENDALL, KIEL A 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 12/26/2011 RUI KENDALL KIEL A 783.1 ABNORMAL WEIGHT GAIN 12/26/2011 CAROLYNE STARR MD 388.70 OTALGIA UNSPECIFIED 12/26/2011 CAROLYNE STARR MD 389.9 UNSPECIFIED HEARING LOSS 12/26/2011 CAROLYNE STARR MD 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 12/26/2011 CAROLYNE STARR MD 783.1 ABNORMAL WEIGHT GAIN 12/26/2011 SHERI HALEY APRN 388.70 OTALGIA UNSPECIFIED 12/26/2011 SHERI HALEY APRN 389.9 UNSPECIFIED HEARING LOSS 12/26/2011 SHERI HALEY APRN 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 12/26/2011 SHERI HALEY APRN 783.1 ABNORMAL WEIGHT GAIN 12/26/2011 FAYE CHAN APRNETTE 388.70 OTALGIA UNSPECIFIED 12/26/2011 ROCIO KENDALL RHONDA 389.9 UNSPECIFIED HEARING LOSS 12/26/2011 ROCIO KENDALL RHONDA 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 12/26/2011 ROCIO TASSEL MAKER, RHONDA 783.1 ABNORMAL WEIGHT GAIN 12/26/2011 MAXWELL DO, L[place] K 388.70 OTALGIA UNSPECIFIED 12/26/2011 MAXWELL DO, [place] K 389.9 UNSPECIFIED HEARING LOSS 12/26/2011 MAXWELL DO, [place] K 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 12/26/2011 MAXWELL DO, [place] K 783.1 ABNORMAL WEIGHT GAIN 12/26/2011 ROCIO TASSEL MAKER, RHONDA 388.70 OTALGIA UNSPECIFIED 12/26/2011 ROCIO TASSEL MAKER, RHONDA 389.9 UNSPECIFIED HEARING LOSS 12/26/2011 ROCIO TASSEL MAKER, RHONDA 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 12/26/2011 ROCIO TASSEL MAKER, RHONDA 783.1 ABNORMAL WEIGHT GAIN 12/26/2011 MAXWELL DO, [place] K 388.70 OTALGIA UNSPECIFIED 12/26/2011 MAXWELL DO, [place] K 389.9 UNSPECIFIED HEARING LOSS 12/26/2011 MAXWELL DO, [place] K 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 12/26/2011 MAXWELL DO, [place] K 783.1 ABNORMAL WEIGHT GAIN 12/26/2011 SHERI HALEY APRN 388.70 OTALGIA UNSPECIFIED 12/26/2011 SHERI HALEY APRN T 389.9 UNSPECIFIED HEARING LOSS 12/26/2011 SHERI HALEY APRN T 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 12/26/2011 SHERI HALEY APRN T 783.1 ABNORMAL WEIGHT GAIN 12/26/2011 ROCIO TASSEL MAKER, RHONDA 388.70 OTALGIA UNSPECIFIED 12/26/2011 ROCIO TASSEL MAKER, RHONDA 389.9 UNSPECIFIED HEARING LOSS 12/26/2011 ROCIO TASSEL MAKER, RHONDA 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 12/26/2011 ROCIO TASSEL MAKER, RHONDA 783.1 ABNORMAL WEIGHT GAIN 12/26/2011 SHERI HALEY APRN 388.70 OTALGIA UNSPECIFIED 12/26/2011 SHERI HALEY APRN T 389.9 UNSPECIFIED HEARING LOSS 12/26/2011 SHERI HALEY APRN T 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 12/26/2011 SHERI HALEY APRN T 783.1 ABNORMAL WEIGHT GAIN 12/26/2011 ROCIO TASSEL MAKER, RHONDA 388.70 OTALGIA UNSPECIFIED 12/26/2011 ROCIO TASSEL MAKER, RHONDA 389.9 UNSPECIFIED HEARING LOSS 12/26/2011 ROCIO TASSEL MAKER, RHONDA 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 12/26/2011 ROCIO TASSEL MAKER, RHONDA 783.1 ABNORMAL WEIGHT GAIN 12/26/2011 MAXWELL DO [place] K 388.70 OTALGIA UNSPECIFIED 12/26/2011 MAXWELL DO, [place] K 389.9 UNSPECIFIED HEARING LOSS 12/26/2011 MAXWELL DO, [place] K 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 12/26/2011 MAXWELL DO, [place] K 783.1 ABNORMAL WEIGHT GAIN 12/26/2011 ROCIO TASSEL MAKER, RHONDA 388.70 OTALGIA UNSPECIFIED 12/26/2011 ROCIO TASSEL MAKER, RHONDA 389.9 UNSPECIFIED HEARING LOSS 12/26/2011 ROCIO TASSEL MAKER, RHONDA 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 12/26/2011 ROCIO TASSEL MAKER, RHONDA 783.1 ABNORMAL WEIGHT GAIN 12/26/2011 TARIK KENDALL, MONTRELL R 388.70 OTALGIA UNSPECIFIED 12/26/2011 TARIK TASSEL MAKER, MONTRELL R 389.9 UNSPECIFIED HEARING LOSS 12/26/2011 TARIK TASSEL MAKER, MONTRELL R 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 12/26/2011 TARIK ENOCH, MONTRELL R 783.1 ABNORMAL WEIGHT GAIN 02/27/2012 Ot 278.00 OBESITY, NOS 02/27/2012 Ot 296.80 BIPOLAR DISORDER, UNSPECIFIED 02/27/2012 Ot 300.00 ANXIETY STATE NOS 02/27/2012 Ot 401.9 HYPERTENSION NOS 02/27/2012 Ot 682.6 CELLULITIS OF LEG 02/27/2012 Ot 707.10 ULCER OF LOWER LIMB NOS 02/27/2012 Ot 724.5 BACKACHE NOS 02/27/2012 Ot 757.39 SKIN ANOMALY NEC 02/27/2012 Ot V85.43 BODY MASS INDEX 50.0-59.9, ADULT 03/07/2012 ANDRES HARDWICK DO V77.0 THYROID DISORDER SCREENING 03/07/2012 ANDRES HARDWICK DO V77.0 THYROID DISORDER SCREENING 03/07/2012 V77.0 THYROID DISORDER SCREENING 03/07/2012 CAROLYNE STARR MD V77.0 THYROID DISORDER SCREENING 03/07/2012 CAROLYNE STARR MD V77.0 THYROID DISORDER SCREENING 03/07/2012 RONEN FIGUEROA ANDRES Montanez V77.0 THYROID DISORDER SCREENING 03/07/2012 RONEN FIGUEROA ANDRES F V77.0 THYROID DISORDER SCREENING 03/07/2012 V77.0 THYROID DISORDER SCREENING 03/07/2012 V77.0 THYROID DISORDER SCREENING 03/07/2012 V77.0 THYROID DISORDER SCREENING 03/07/2012 V77.0 THYROID DISORDER SCREENING 03/07/2012 V77.0 THYROID DISORDER SCREENING 03/07/2012 RONEN FIGUEROA ANDRES F V77.0 THYROID DISORDER SCREENING 03/07/2012 MEHUL PHD, ANGELICA Rawls V77.0 THYROID DISORDER SCREENING 03/07/2012 MEHUL PHD, ANGELICA Rawls V77.0 THYROID DISORDER SCREENING 03/07/2012 KRISTA HUDSON, LEIGH Rodriguez V77.0 THYROID DISORDER SCREENING 03/07/2012 SIRENA LEMA APRN V77.0 THYROID DISORDER SCREENING 03/07/2012 CAROLYNE STARR MD V77.0 THYROID DISORDER SCREENING 03/07/2012 MEHUL BEYER, ANGELICA Rawls V77.0 THYROID DISORDER SCREENING 03/07/2012 SIRENA LEMA APRN V77.0 THYROID DISORDER SCREENING 03/07/2012 LEIGH VELASCO MD V77.0 THYROID DISORDER SCREENING 03/07/2012 SIRENA LEMA APRN V77.0 THYROID DISORDER SCREENING 03/07/2012 SIRENA LEMA APRN V77.0 THYROID DISORDER SCREENING 03/07/2012 KIEL FABIAN APRN V77.0 THYROID DISORDER SCREENING 03/07/2012 CAROLYNE STARR MD V77.0 THYROID DISORDER SCREENING 03/07/2012 SHERI HALEY APRN V77.0 THYROID DISORDER SCREENING 03/07/2012 RHONDA CHAN APRN V77.0 THYROID DISORDER SCREENING 03/07/2012 MAXWELL DO, [place] K V77.0 THYROID DISORDER SCREENING 03/07/2012 ROCIO KENDALL RHONDA V77.0 THYROID DISORDER SCREENING 03/07/2012 MAXWELL DO, [place] K V77.0 THYROID DISORDER SCREENING 03/07/2012 SHERI HALEY APRN V77.0 THYROID DISORDER SCREENING 03/07/2012 ROCIO KENDALL RHONDA V77.0 THYROID DISORDER SCREENING 03/07/2012 SHERI HALEY APRN V77.0 THYROID DISORDER SCREENING 03/07/2012 ROCIO TASSEL MAKERRHONDA Dougherty V77.0 THYROID DISORDER SCREENING 03/07/2012 ALISSA FIGUEROA [place] Juanis V77.0 THYROID DISORDER SCREENING 03/07/2012 RHONDA CHAN APRN V77.0 THYROID DISORDER SCREENING 03/07/2012 MONTRELL MONTANEZ APRN V77.0 THYROID DISORDER SCREENING 03/25/2012 Ot 278.01 MORBID OBESITY 03/25/2012 Ot 296.80 BIPOLAR DISORDER, UNSPECIFIED 03/25/2012 Ot 401.9 HYPERTENSION NOS 03/25/2012 Ot 682.6 CELLULITIS OF LEG 03/25/2012 Ot 707.12 ULCER OF CALF 03/25/2012 Ot 724.5 BACKACHE NOS 03/25/2012 Ot 757.39 SKIN ANOMALY NEC 03/25/2012 Ot 790.29 OTHER ABNORMAL GLUCOSE 03/25/2012 Ot V85.43 BODY MASS INDEX 50.0-59.9, ADULT 03/29/2012 Ot 278.01 MORBID OBESITY 03/29/2012 Ot 285.9 ANEMIA NOS 03/29/2012 Ot 296.80 BIPOLAR DISORDER, UNSPECIFIED 03/29/2012 Ot 571.8 CHRONIC LIVER DIS NEC 03/29/2012 Ot 682.3 CELLULITIS OF ARM 03/29/2012 Ot 786.59 CHEST PAIN NEC 03/29/2012 Ot V85.43 BODY MASS INDEX 50.0-59.9, ADULT 04/29/2012 Ot 327.23 OBSTRUCTIVE SLEEP APNEA (ADULT) (PEDIATR 06/02/2012 Ot 707.10 ULCER OF LOWER LIMB NOS 06/02/2012 Ot V58.30 ENCOUNTER FOR CHANGE OR REMOVAL OF NONSU 07/15/2012 ANDRES HARDWICK DO 338.29 CHRONIC PAIN 07/15/2012 ANDRES HARDWICK DO 338.29 CHRONIC PAIN 07/15/2012 338.29 CHRONIC PAIN 07/15/2012 CAROLYNE STARR MD 338.29 CHRONIC PAIN 07/15/2012 CAROLYNE STARR MD 338.29 CHRONIC PAIN 07/15/2012 ANDRES HARDWICK DO 338.29 CHRONIC PAIN 07/15/2012 ANDRES HARDWICK DO 338.29 CHRONIC PAIN 07/15/2012 338.29 CHRONIC PAIN 07/15/2012 338.29 CHRONIC PAIN 07/15/2012 338.29 CHRONIC PAIN 07/15/2012 338.29 CHRONIC PAIN 07/15/2012 338.29 CHRONIC PAIN 07/15/2012 ANDRES HARDWICK DO 338.29 CHRONIC PAIN 07/15/2012 MEHUL PHD, ANGELICA Rawls 338.29 CHRONIC PAIN 07/15/2012 MEHUL BEYER, ANGELICA Rawls 338.29 CHRONIC PAIN 07/15/2012 LEIGH VELASCO MD 338.29 CHRONIC PAIN 07/15/2012 SIRENA LEMA APRN 338.29 CHRONIC PAIN 07/15/2012 CAROLYNE STARR MD 338.29 CHRONIC PAIN 07/15/2012 MEHUL BEYER, ANGELICA Rawls 338.29 CHRONIC PAIN 07/15/2012 SIRENA LEMA APRN 338.29 CHRONIC PAIN 07/15/2012 LEIGH VELASCO MD 338.29 CHRONIC PAIN 07/15/2012 SIRENA LEMA APRN 338.29 CHRONIC PAIN 07/15/2012 SIRENA LEMA APRN 338.29 CHRONIC PAIN 07/15/2012 KIEL FABIAN APRN 338.29 CHRONIC PAIN 07/15/2012 CAROLYNE STARR MD 338.29 CHRONIC PAIN 07/15/2012 SHERI HALEY APRN 338.29 CHRONIC PAIN 07/15/2012 ROCIO KENDALL, RHONDA 338.29 CHRONIC PAIN 07/15/2012 MAXWELL DO, [place] K 338.29 CHRONIC PAIN 07/15/2012 ROCIO KENDALL, RHONDA 338.29 CHRONIC PAIN 07/15/2012 MAXWELL DO [place] K 338.29 CHRONIC PAIN 07/15/2012 SHERI HALEY APRN 338.29 CHRONIC PAIN 07/15/2012 ROCIO KENDALL RHONDA 338.29 CHRONIC PAIN 07/15/2012 SHERI HALEY APRN 338.29 CHRONIC PAIN 07/15/2012 ROCIO KENDALL, RHONDA 338.29 CHRONIC PAIN 07/15/2012 MAXWELL DO, [place] K 338.29 CHRONIC PAIN 07/15/2012 ROCIO KENDALL RHONDA 338.29 CHRONIC PAIN 07/15/2012 MONTRELL MONTANEZ APRN 338.29 CHRONIC PAIN 09/26/2012 729.5 ARM PAIN 09/26/2012 CAROLYNE STARR MD 729.5 ARM PAIN 09/26/2012 CAROLYNE STARR MD 729.5 ARM PAIN 09/26/2012 ANDRES HARDWICK DO 729.5 ARM PAIN 09/26/2012 RONEN FIGUEROA ANDRES F 729.5 ARM PAIN 09/26/2012 729.5 ARM PAIN 09/26/2012 729.5 ARM PAIN 09/26/2012 729.5 ARM PAIN 09/26/2012 729.5 ARM PAIN 09/26/2012 729.5 ARM PAIN 09/26/2012 ANDRES HARDWICK DO F 729.5 ARM PAIN 09/26/2012 MEHUL BEYER, ANGELICA Rawls 729.5 ARM PAIN 09/26/2012 MEHUL PHD, ANGELICA Rawls 729.5 ARM PAIN 09/26/2012 KRISTA HUDSON, LEIGH Rodriguez 729.5 ARM PAIN 09/26/2012 SIRENA LEMA APRN 729.5 ARM PAIN 09/26/2012 RO HUDSON, CAROLYNE 729.5 ARM PAIN 09/26/2012 MEHUL BEYER, ANGELICA Rawls 729.5 ARM PAIN 09/26/2012 SIRENA LEMA APRN 729.5 ARM PAIN 09/26/2012 KRISTA HUDSON, LEIGH Rodriguez 729.5 ARM PAIN 09/26/2012 SIRENA LEMA APRN 729.5 ARM PAIN 09/26/2012 SIRENA LEMA APRN 729.5 ARM PAIN 09/26/2012 KIEL FABIAN APRN 729.5 ARM PAIN 09/26/2012 CAROLYNE STARR MD 729.5 ARM PAIN 09/26/2012 SHERI HALEY APRN 729.5 ARM PAIN 09/26/2012 ROCIO TASSEL MAKER, RHONDA 729.5 ARM PAIN 09/26/2012 [place] MAXWELL DO 729.5 ARM PAIN 09/26/2012 ROCIO TASSEL MAKER, RHONDA 729.5 ARM PAIN 09/26/2012 [place] MAXWELL DO K 729.5 ARM PAIN 09/26/2012 SHERI HALEY APRN 729.5 ARM PAIN 09/26/2012 ROCIO TASSEL MAKER, RHONDA 729.5 ARM PAIN 09/26/2012 SHERI HALEY APRN 729.5 ARM PAIN 09/26/2012 ROCIO TASSEL MAKER, RHONDA 729.5 ARM PAIN 09/26/2012 [place] MAXWELL DO K 729.5 ARM PAIN 09/26/2012 RHONDA CHAN APRN 729.5 ARM PAIN 09/26/2012 MONTRELL MONTANEZ APRN R 729.5 ARM PAIN 10/06/2012 CAROLYNE STARR MD 729.81 Forearm Swelling 10/06/2012 CAROLYNE STARR MD 729.81 Forearm Swelling 10/06/2012 ANDRES HARDWICK DO 729.81 Forearm Swelling 10/06/2012 ANDRES HARDWICK DO 729.81 Forearm Swelling 10/06/2012 729.81 Forearm Swelling 10/06/2012 729.81 Forearm Swelling 10/06/2012 729.81 Forearm Swelling 10/06/2012 729.81 Forearm Swelling 10/06/2012 729.81 FOREARM SWELLING 10/06/2012 ANDRES HARDWICK DO 729.81 FOREARM SWELLING 10/06/2012 MEHUL BEYER, ANGELICA Rawls 729.81 FOREARM SWELLING 10/06/2012 MEHUL BEYER, ANGELICA Rawls 729.81 FOREARM SWELLING 10/06/2012 LEIGH VELASCO MD 729.81 FOREARM SWELLING 10/06/2012 SIRENA LEMA APRN 729.81 FOREARM SWELLING 10/06/2012 CAROLYNE STARR MD 729.81 FOREARM SWELLING 10/06/2012 ANGELICA CARVER PHD 729.81 FOREARM SWELLING 10/06/2012 SIRENA LEMA APRN 729.81 FOREARM SWELLING 10/06/2012 LEIGH VELASCO MD 729.81 FOREARM SWELLING 10/06/2012 SIRENA LEMA APRN 729.81 FOREARM SWELLING 10/06/2012 SIRENA LEMA APRN 729.81 FOREARM SWELLING 10/06/2012 KILE FABIAN APRN 729.81 FOREARM SWELLING 10/06/2012 CAROLYNE STARR MD 729.81 FOREARM SWELLING 10/06/2012 SHERI HALEY APRN 729.81 FOREARM SWELLING 10/06/2012 RHONDA CHAN APRN 729.81 FOREARM SWELLING 10/06/2012 [place] MAXWELL DO 729.81 FOREARM SWELLING 10/06/2012 RHONDA CHAN APRN 729.81 FOREARM SWELLING 10/06/2012 [place] MAXWELL DO 729.81 FOREARM SWELLING 10/06/2012 SHERI HALEY APRN 729.81 FOREARM SWELLING 10/06/2012 ROCIOTYSON KENDALL, RHONDA 729.81 FOREARM SWELLING 10/06/2012 SHERI HALEY APRN 729.81 FOREARM SWELLING 10/06/2012 ROCIOTYSON KENDALL, RHONDA 729.81 FOREARM SWELLING 10/06/2012 [place] MAXWELL DO 729.81 FOREARM SWELLING 10/06/2012 ROCIO TASSEL MAKER, RHONDA 729.81 FOREARM SWELLING 10/06/2012 MONTRELL MONTANEZ APRN 729.81 FOREARM SWELLING 11/03/2012 ANDRES HARDWICK DO 682.9 CELLULITIS 11/03/2012 ANDRES HARDWICK DO F 682.9 CELLULITIS 11/03/2012 682.9 CELLULITIS 11/03/2012 682.9 CELLULITIS 11/03/2012 682.9 CELLULITIS 11/03/2012 682.9 CELLULITIS 11/03/2012 682.9 CELLULITIS 11/03/2012 ANDRES HARDWICK DO 682.9 CELLULITIS 11/03/2012 MEHUL PHD, ANGELICA Rawls 682.9 CELLULITIS 11/03/2012 MEHUL PHD, ANGELICA Rawls 682.9 CELLULITIS 11/03/2012 KRISTA HUDSON, LEIGH Rodriguez 682.9 CELLULITIS 11/03/2012 SIRENA LEMA APRN 682.9 CELLULITIS 11/03/2012 CARLOYNE STARR MD 682.9 CELLULITIS 11/03/2012 MEHUL BEYER, ANGELICA Rawls 682.9 CELLULITIS 11/03/2012 SIRENA LEMA APRN 682.9 CELLULITIS 11/03/2012 LEIGH VELASCO MD 682.9 CELLULITIS 11/03/2012 SIRENA LEMA APRN 682.9 CELLULITIS 11/03/2012 SIRENA LEMA APRN 682.9 CELLULITIS 11/03/2012 KIEL FABIAN APRN 682.9 CELLULITIS 11/03/2012 CAROLYNE STARR MD 682.9 CELLULITIS 11/03/2012 SHERI HALEY APRN 682.9 CELLULITIS 11/03/2012 ROCIO KENDALL, RHONDA 682.9 CELLULITIS 11/03/2012 [place] MAXWELL DO 682.9 CELLULITIS 11/03/2012 ROCIO TASSEL MAKER, RHONDA 682.9 CELLULITIS 11/03/2012 MAXWELL DO, [place] K 682.9 CELLULITIS 11/03/2012 TERA TASSEL MAKER, SHERI De Leon 682.9 CELLULITIS 11/03/2012 ROCIO TASSEL MAKER, RHONDA 682.9 CELLULITIS 11/03/2012 TERA TASSEL MAKER, SHERI De Leon 682.9 CELLULITIS 11/03/2012 ROCIO TASSEL MAKER, RHONDA 682.9 CELLULITIS 11/03/2012 MAXWELL DO, [place] K 682.9 CELLULITIS 11/03/2012 ROCIO TASSEL MAKER, RHONDA 682.9 CELLULITIS 11/03/2012 TARIK TASSEL MAKER, MONTRELL R 682.9 CELLULITIS 12/01/2012 ANDRES HARDWICK DO 327.23 SLEEP APNEA OBSTRUCTIVE 12/01/2012 327.23 SLEEP APNEA OBSTRUCTIVE 12/01/2012 327.23 SLEEP APNEA OBSTRUCTIVE 12/01/2012 327.23 SLEEP APNEA OBSTRUCTIVE 12/01/2012 327.23 SLEEP APNEA OBSTRUCTIVE 12/01/2012 327.23 SLEEP APNEA OBSTRUCTIVE 12/01/2012 ANDRES HARDWICK DO 327.23 SLEEP APNEA OBSTRUCTIVE 12/01/2012 MEHUL PHD, ANGELICA Rawls 327.23 SLEEP APNEA OBSTRUCTIVE 12/01/2012 MEHUL PHD, ANGELICA Rawls 327.23 SLEEP APNEA OBSTRUCTIVE 12/01/2012 LEIGH VELASCO MD 327.23 SLEEP APNEA OBSTRUCTIVE 12/01/2012 SIRENA LEMA APRN 327.23 SLEEP APNEA OBSTRUCTIVE 12/01/2012 CAROLYNE STARR MD 327.23 SLEEP APNEA OBSTRUCTIVE 12/01/2012 MEHUL PHD, ANGELICA Rawls 327.23 SLEEP APNEA OBSTRUCTIVE 12/01/2012 SIRENA LEMA APRN 327.23 SLEEP APNEA OBSTRUCTIVE 12/01/2012 LEIGH VELASCO MD 327.23 SLEEP APNEA OBSTRUCTIVE 12/01/2012 SIRENA LEMA APRN 327.23 SLEEP APNEA OBSTRUCTIVE 12/01/2012 SIRENA LEMA APRN 327.23 SLEEP APNEA OBSTRUCTIVE 12/01/2012 KIEL FABIAN APRN 327.23 SLEEP APNEA OBSTRUCTIVE 12/01/2012 CAROLYNE STARR MD 327.23 SLEEP APNEA OBSTRUCTIVE 12/01/2012 SHERI HALEY APRN 327.23 SLEEP APNEA OBSTRUCTIVE 12/01/2012 ROCIO TASSEL MAKER, RHONDA 327.23 SLEEP APNEA OBSTRUCTIVE 12/01/2012 MAXWELL DO, L[place] K 327.23 SLEEP APNEA OBSTRUCTIVE 12/01/2012 ROCIO TASSEL MAKER, RHONDA 327.23 SLEEP APNEA OBSTRUCTIVE 12/01/2012 MAXWELL DO [place] K 327.23 SLEEP APNEA OBSTRUCTIVE 12/01/2012 TERA TASSEL MAKERSHERI Dougherty 327.23 SLEEP APNEA OBSTRUCTIVE 12/01/2012 ROCIO TASSEL MAKER, RHONDA 327.23 SLEEP APNEA OBSTRUCTIVE 12/01/2012 TERA TASSEL MAKERSHERI T 327.23 SLEEP APNEA OBSTRUCTIVE 12/01/2012 ROCIO TASSEL MAKER, RHONDA 327.23 SLEEP APNEA OBSTRUCTIVE 12/01/2012 MAXWELL DO [place] K 327.23 SLEEP APNEA OBSTRUCTIVE 12/01/2012 ROCIO TASSEL MAKER, RHONDA 327.23 SLEEP APNEA OBSTRUCTIVE 12/01/2012 MONTRELL MONTANEZ APRN 327.23 SLEEP APNEA OBSTRUCTIVE 01/22/2013 382.00 OTITIS MEDIA ACUTE SUPPURATIVE 01/22/2013 382.00 OTITIS MEDIA ACUTE SUPPURATIVE 01/22/2013 382.00 OTITIS MEDIA ACUTE SUPPURATIVE 01/22/2013 382.00 OTITIS MEDIA ACUTE SUPPURATIVE 01/22/2013 ANDRES HARDWICK DO 382.00 OTITIS MEDIA ACUTE SUPPURATIVE 01/22/2013 MEHUL BEYER, ANGELICA Rawls 382.00 OTITIS MEDIA ACUTE SUPPURATIVE 01/22/2013 MEHUL BEYER, ANGELICA Rawls 382.00 OTITIS MEDIA ACUTE SUPPURATIVE 01/22/2013 LEIGH VELASCO MD 382.00 OTITIS MEDIA ACUTE SUPPURATIVE 01/22/2013 SIRENA LEMA APRN 382.00 OTITIS MEDIA ACUTE SUPPURATIVE 01/22/2013 CAROLYNE STARR MD 382.00 OTITIS MEDIA ACUTE SUPPURATIVE 01/22/2013 MEHUL BEYER, ANGELICA Rawls 382.00 OTITIS MEDIA ACUTE SUPPURATIVE 01/22/2013 SIRENA LEMA APRN 382.00 OTITIS MEDIA ACUTE SUPPURATIVE 01/22/2013 LEIGH VELASCO MD 382.00 OTITIS MEDIA ACUTE SUPPURATIVE 01/22/2013 SIRENA LEMA APRN 382.00 OTITIS MEDIA ACUTE SUPPURATIVE 01/22/2013 SIRENA LEMA APRN 382.00 OTITIS MEDIA ACUTE SUPPURATIVE 01/22/2013 RUI TASSEL MAKER, KIEL A 382.00 OTITIS MEDIA ACUTE SUPPURATIVE 01/22/2013 RO HUDSON, CAROLYNE 382.00 OTITIS MEDIA ACUTE SUPPURATIVE 01/22/2013 TERA KENDALL, SHERI T 382.00 OTITIS MEDIA ACUTE SUPPURATIVE 01/22/2013 ROCIO TASSEL MAKER, RHONDA 382.00 OTITIS MEDIA ACUTE SUPPURATIVE 01/22/2013 MAXWELL DO, LONDON K 382.00 OTITIS MEDIA ACUTE SUPPURATIVE 01/22/2013 ROCIO TASSEL MAKER, RHONDA 382.00 OTITIS MEDIA ACUTE SUPPURATIVE 01/22/2013 MAXWELL DO, LONDON K 382.00 OTITIS MEDIA ACUTE SUPPURATIVE 01/22/2013 TERA KENDALL, SHERI T 382.00 OTITIS MEDIA ACUTE SUPPURATIVE 01/22/2013 ROCIO TASSEL MAKER, RHONDA 382.00 OTITIS MEDIA ACUTE SUPPURATIVE 01/22/2013 TERA KENDALL, SHERI T 382.00 OTITIS MEDIA ACUTE SUPPURATIVE 01/22/2013 ROCIO TASSEL MAKER, RHONDA 382.00 OTITIS MEDIA ACUTE SUPPURATIVE 01/22/2013 MAXWELL , LONDON K 382.00 OTITIS MEDIA ACUTE SUPPURATIVE 01/22/2013 ROCIO TASSEL MAKER, RHONDA 382.00 OTITIS MEDIA ACUTE SUPPURATIVE 01/22/2013 TARIK KENDALL, MONTRELL R 382.00 OTITIS MEDIA ACUTE SUPPURATIVE 02/23/2013 380.10 OTITIS EXTERNA LEFT 02/23/2013 380.10 OTITIS EXTERNA LEFT 02/23/2013 380.10 OTITIS EXTERNA LEFT 02/23/2013 380.10 OTITIS EXTERNA LEFT 02/23/2013 ANDRES HARDWICK DO 380.10 OTITIS EXTERNA LEFT 02/23/2013 MEHUL PHD, ANGELICA Rawls 380.10 OTITIS EXTERNA LEFT 02/23/2013 MEHUL BEYER, ANGELICA Rawls 380.10 OTITIS EXTERNA LEFT 02/23/2013 LEIGH VELASCO MD 380.10 OTITIS EXTERNA LEFT 02/23/2013 SIRENA LEMA APRN 380.10 OTITIS EXTERNA LEFT 02/23/2013 CAROLYNE STARR MD 380.10 OTITIS EXTERNA LEFT 02/23/2013 MEHLU BEYER, ANGELICA Rawls 380.10 OTITIS EXTERNA LEFT 02/23/2013 SIRENA LEMA APRN 380.10 OTITIS EXTERNA LEFT 02/23/2013 LEIGH VELASCO MD 380.10 OTITIS EXTERNA LEFT 02/23/2013 SIRENA LEMA APRN 380.10 OTITIS EXTERNA LEFT 02/23/2013 SIRENA LEMA APRN 380.10 OTITIS EXTERNA LEFT 02/23/2013 KIEL FABIAN APRN 380.10 OTITIS EXTERNA LEFT 02/23/2013 CAROLYNE STARR MD 380.10 OTITIS EXTERNA LEFT 02/23/2013 TERA KENDALL, SHERI [place] 380.10 OTITIS EXTERNA LEFT 02/23/2013 ROCIO TASSEL MAKER, RHONDA 380.10 OTITIS EXTERNA LEFT 02/23/2013 MAXWELL DO, LONDON K 380.10 OTITIS EXTERNA LEFT 02/23/2013 ROCIO TASSEL MAKER, RHONDA 380.10 OTITIS EXTERNA LEFT 02/23/2013 MAXWELL DO, LONDON K 380.10 OTITIS EXTERNA LEFT 02/23/2013 TERA KENDALL, SHERI T 380.10 OTITIS EXTERNA LEFT 02/23/2013 ROCIO TASSEL MAKER, RHONDA 380.10 OTITIS EXTERNA LEFT 02/23/2013 SHERI HALEY APRN 380.10 OTITIS EXTERNA LEFT 02/23/2013 ROCIO TASSEL MAKER, RHONDA 380.10 OTITIS EXTERNA LEFT 02/23/2013 ALISSA DO, L[place]ON K 380.10 OTITIS EXTERNA LEFT 02/23/2013 ROCIO TASSEL MAKER, RHONDA 380.10 OTITIS EXTERNA LEFT 02/23/2013 TARIK KENDALL, MONTRELL [place] 380.10 OTITIS EXTERNA LEFT 03/16/2013 MARISELA ROBLEDO DO Ot 041.10 BACTERIAL INFEC DUE TO UNSPEC STAPHYLOCO 03/16/2013 MARISELA ROBLEDO DO Ot 278.00 OBESITY, NOS 03/16/2013 MARISELA ROBLEDO DO Ot 295.90 SCHIZOPHRENIA NOS-UNSPEC 03/16/2013 MARISELA ROBLEDO DO Ot 300.00 ANXIETY STATE NOS 03/16/2013 MARISELA ROBLEDO DO Ot 301.9 PERSONALITY DISORDER NOS 03/16/2013 MARISELA ROBLEDO DO Ot 305.60 COCAINE ABUSE-UNSPEC 03/16/2013 MARISELA ROBLEDO DO Ot 305.90 DRUG ABUSE NEC-UNSPEC 03/16/2013 MARISELA ROBLEDO DO Ot 311 DEPRESSIVE DISORDER NEC 03/16/2013 MARISELA ROBLEDO DO Ot 338.29 OTHER CHRONIC PAIN 03/16/2013 MARISELA ROBLEDO DO Ot 401.9 HYPERTENSION NOS 03/16/2013 MARISELA ROBLEDO DO Ot 530.81 ESOPHAGEAL REFLUX 03/16/2013 MARISELA ROBLEDO DO Ot 682.6 CELLULITIS OF LEG 03/16/2013 MARISELA ROBLEDO DO Ot 698.3 LICHENIFICATION 03/16/2013 MARISELA ROBLEDO DO Ot 709.9 SKIN DISORDER NOS 03/16/2013 MARISELA ROBLEDO DO Ot 716.90 ARTHROPATHY NOS-UNSPEC 03/16/2013 MARISELA ROBLEDO DO Ot 757.39 SKIN ANOMALY NEC 03/16/2013 MARISELA ROBLEDO DO Ot V13.01 PERSONAL HISTORY OF URINARY CALCULI 03/16/2013 MARISELA ROBLEDO DO Ot V13.02 PERSONAL HISTORY, URINARY (TRACT) INFECT 03/16/2013 MARISELA ROBLEDO DO Ot V58.62 ENCOUNT FOR LONG-TERM(CURRENT) USE OF AN 03/16/2013 MARISELA ROBLEDO DO Ot V85.43 BODY MASS INDEX 50.0-59.9, ADULT 03/23/2013 MARISELA ROBLEDO DO Ot 380.23 CHR OTITIS EXTERNA NEC 03/23/2013 MARISELA ROBLEDO DO Ot 682.6 CELLULITIS OF LEG 07/05/2013 MEHUL PHD, ANGELICA Rawls 311 MO DEPRESS NOS 07/05/2013 LEIGH VELASCO MD 311 MO DEPRESS NOS 07/05/2013 SIRENA LEMA APRN 311 MO DEPRESS NOS 07/05/2013 CAROLYNE STARR MD 311 MO DEPRESS NOS 07/05/2013 MEHUL BEYER, ANGELICA Rawls 311 MO DEPRESS NOS 07/05/2013 SIRENA LEMA APRN 311 MO DEPRESS NOS 07/05/2013 LEIGH VELASCO MD 311 MO DEPRESS NOS 07/05/2013 SIRENA LEMA APRN 311 MO DEPRESS NOS 07/05/2013 SIRENA LEMA APRN 311 MO DEPRESS NOS 07/05/2013 KIEL FABIAN APRN 311 MO DEPRESS NOS 07/05/2013 CAROLYNE STARR MD 311 MO DEPRESS NOS 07/05/2013 SHERI HALEY APRN 311 MO DEPRESS NOS 07/05/2013 RHONDA CHAN APRN 311 MO DEPRESS NOS 07/05/2013 LONDON MAXWELL DO 311 MO DEPRESS NOS 07/05/2013 ROCIO TASSEL MAKER, RHONDA 311 MO DEPRESS NOS 07/05/2013 L[place] MAXWELL DO K 311 MO DEPRESS NOS 07/05/2013 TERA TASSEL MAKER, SHERI T 311 MO DEPRESS NOS 07/05/2013 ROCIO TASSEL MAKER, RHONDA 311 MO DEPRESS NOS 07/05/2013 TERA TASSEL MAKER SHERI T 311 MO DEPRESS NOS 07/05/2013 ROCIO TASSEL MAKER, RHONDA 311 MO DEPRESS NOS 07/05/2013 ALISSA DO, [place] K 311 MO DEPRESS NOS 07/05/2013 ROCIO TASSEL MAKER, RHONDA 311 MO DEPRESS NOS 07/05/2013 TARIK TASSEL MAKER, MONTRELL R 311 MO DEPRESS NOS 07/07/2013 LEIGH VELASCO MD 729.1 MYALGIA AND MYOSITIS UNSPECIFIED 07/07/2013 LEIGH VELASCO MD 782.1 SKIN DISORDER EXANTHEM 07/07/2013 SIRENA LEMA APRN 729.1 MYALGIA AND MYOSITIS UNSPECIFIED 07/07/2013 SIRENA LEMA APRN 782.1 SKIN DISORDER EXANTHEM 07/07/2013 CAROLYNE STARR MD 729.1 MYALGIA AND MYOSITIS UNSPECIFIED 07/07/2013 CAROLYNE STARR MD 782.1 SKIN DISORDER EXANTHEM 07/07/2013 MEHUL PHD, ANGELICA Rawls 729.1 MYALGIA AND MYOSITIS UNSPECIFIED 07/07/2013 MEHUL PHD, ANGELICA Rawls 782.1 SKIN DISORDER EXANTHEM 07/07/2013 SIRENA LEMA APRN 729.1 MYALGIA AND MYOSITIS UNSPECIFIED 07/07/2013 SIRENA LEMA APRN 782.1 SKIN DISORDER EXANTHEM 07/07/2013 LEIGH VELASCO MD 729.1 MYALGIA AND MYOSITIS UNSPECIFIED 07/07/2013 LEIGH VELASCO MD 782.1 SKIN DISORDER EXANTHEM 07/07/2013 SIRENA LEMA APRN 729.1 MYALGIA AND MYOSITIS UNSPECIFIED 07/07/2013 SIRENA LEMA APRN 782.1 SKIN DISORDER EXANTHEM 07/07/2013 SIRENA LEMA APRN 729.1 MYALGIA AND MYOSITIS UNSPECIFIED 07/07/2013 SIRENA LEMA APRN 782.1 SKIN DISORDER EXANTHEM 07/07/2013 KIEL FABIAN APRN 729.1 MYALGIA AND MYOSITIS UNSPECIFIED 07/07/2013 KIEL FABIAN APRN 782.1 SKIN DISORDER EXANTHEM 07/07/2013 CAROLYNE STARR MD 729.1 MYALGIA AND MYOSITIS UNSPECIFIED 07/07/2013 CAROLYNE STARR MD 782.1 SKIN DISORDER EXANTHEM 07/07/2013 SHERI HALEY APRN 729.1 MYALGIA AND MYOSITIS UNSPECIFIED 07/07/2013 SHERI HALEY APRN 782.1 SKIN DISORDER EXANTHEM 07/07/2013 ROCIO KENDALL RHONDA 729.1 MYALGIA AND MYOSITIS UNSPECIFIED 07/07/2013 ROCIO KENDALL RHONDA 782.1 SKIN DISORDER EXANTHEM 07/07/2013 L[place]ON MAXWELL DO K 729.1 MYALGIA AND MYOSITIS UNSPECIFIED 07/07/2013 YANET MAXWELL DOA K 782.1 SKIN DISORDER EXANTHEM 07/07/2013 ROCIO KENDALL, RHONDA 729.1 MYALGIA AND MYOSITIS UNSPECIFIED 07/07/2013 ROCIO KENDALL RHONDA 782.1 SKIN DISORDER EXANTHEM 07/07/2013 YANET MAXWELL DOA K 729.1 MYALGIA AND MYOSITIS UNSPECIFIED 07/07/2013 L[place] MAXWELL DO K 782.1 SKIN DISORDER EXANTHEM 07/07/2013 SHERI HALEY APRN 729.1 MYALGIA AND MYOSITIS UNSPECIFIED 07/07/2013 SHERI HALEY APRN 782.1 SKIN DISORDER EXANTHEM 07/07/2013 ROCIO KENDALL RHONDA 729.1 MYALGIA AND MYOSITIS UNSPECIFIED 07/07/2013 ROCIO KENDALL RHONDA 782.1 SKIN DISORDER EXANTHEM 07/07/2013 SHERI HALEY APRN 729.1 MYALGIA AND MYOSITIS UNSPECIFIED 07/07/2013 SHERI HALEY APRN 782.1 SKIN DISORDER EXANTHEM 07/07/2013 ROCIO KENDALL RHONDA 729.1 MYALGIA AND MYOSITIS UNSPECIFIED 07/07/2013 ROCIO TASSEL MAKER, RHONDA 782.1 SKIN DISORDER EXANTHEM 07/07/2013 MAXWELL DO, [place] K 729.1 MYALGIA AND MYOSITIS UNSPECIFIED 07/07/2013 MAXWELL DO, [place] K 782.1 SKIN DISORDER EXANTHEM 07/07/2013 ROCIO TASSEL MAKER, RHONDA 729.1 MYALGIA AND MYOSITIS UNSPECIFIED 07/07/2013 ROCIO DAVIDN, RHONDA 782.1 SKIN DISORDER EXANTHEM 07/07/2013 TARIK TASSEL MAKER, MONTRELL R 729.1 MYALGIA AND MYOSITIS UNSPECIFIED 07/07/2013 TARIK DAVIDN, MONTRELL R 782.1 SKIN DISORDER EXANTHEM 07/27/2013 DELANEY GARZA APRN Ot 784.0 HEADACHE 08/02/2013 LEIGH VELASCO MD Ot 278.01 MORBID OBESITY 08/02/2013 LEIGH VELASCO MD Ot 338.29 OTHER CHRONIC PAIN 08/02/2013 LEIGH VELASCO MD Ot 682.6 CELLULITIS OF LEG 08/02/2013 LEIGH VELASCO MD Ot 724.2 LUMBAGO 08/02/2013 LEIGH VELASCO MD Ot 757.39 SKIN ANOMALY NEC 08/02/2013 LEIGH VELASCO MD Ot V04.81 ND FOR PROPHYLACTIC VACCIN AND INOCULATI 08/02/2013 LEIGH VELASCO MD Ot V85.43 BODY MASS INDEX 50.0-59.9, ADULT 08/04/2013 SIMBA PATEL GENERAL MACHINE OPERATOR Ot 682.6 CELLULITIS OF LEG 08/04/2013 SIMBA PATELP Ot 757.39 SKIN ANOMALY NEC 08/17/2013 MEHUL BEYER, ANGELICA Rawls 296.90 MOOD DISORDER NOS 08/17/2013 MEHUL BEYER, ANGELICA Rawls 301.83 PD BORDERLINE 08/17/2013 SIRENA LEMA APRN 296.90 MOOD DISORDER NOS 08/17/2013 SIRENA LEMA APRN 301.83 PD BORDERLINE 08/17/2013 LEIGH VELASCO MD 296.90 MOOD DISORDER NOS 08/17/2013 LEIGH VELASCO MD 301.83 PD BORDERLINE 08/17/2013 SIRENA LEMA APRN 296.90 MOOD DISORDER NOS 08/17/2013 SIRENA LEMA APRN 301.83 PD BORDERLINE 08/17/2013 RAFAELSIRENA JACKSON APRN 296.90 MOOD DISORDER NOS 08/17/2013 TOREY SIRENA KENDALL 301.83 PD BORDERLINE 08/17/2013 RUI APRN, KIEL A 296.90 MOOD DISORDER NOS 08/17/2013 RUI APRN, KIEL A 301.83 PD BORDERLINE 08/17/2013 CAROLYNE STARR MD 296.90 MOOD DISORDER NOS 08/17/2013 CAROLYNE STARR MD 301.83 PD BORDERLINE 08/17/2013 SHERI HALEY APRN 296.90 MOOD DISORDER NOS 08/17/2013 SHERI HALEY APRN T 301.83 PD BORDERLINE 08/17/2013 ROCIO TASSEL MAKER, RHONDA 296.90 MOOD DISORDER NOS 08/17/2013 ROCIO TASSEL MAKER, RHONDA 301.83 PD BORDERLINE 08/17/2013 MAXWELL DO, [place] K 296.90 MOOD DISORDER NOS 08/17/2013 MAXWELL DO, [place] K 301.83 PD BORDERLINE 08/17/2013 ROCIO TASSEL MAKER, RHONDA 296.90 MOOD DISORDER NOS 08/17/2013 ROCIO TASSEL MAKER, RHONDA 301.83 PD BORDERLINE 08/17/2013 MAXWELL DO, [place] K 296.90 MOOD DISORDER NOS 08/17/2013 MAXWELL DO, [place] K 301.83 PD BORDERLINE 08/17/2013 TERA KENDALL SHERI T 296.90 MOOD DISORDER NOS 08/17/2013 SHERI HALEY APRN T 301.83 PD BORDERLINE 08/17/2013 ROCIO TASSEL MAKER, RHONDA 296.90 MOOD DISORDER NOS 08/17/2013 ROCIO TASSEL MAKER, RHONDA 301.83 PD BORDERLINE 08/17/2013 TERA KENDALL SHERI T 296.90 MOOD DISORDER NOS 08/17/2013 SHERI HALEY APRN T 301.83 PD BORDERLINE 08/17/2013 ROCIO TASSEL MAKER, RHONDA 296.90 MOOD DISORDER NOS 08/17/2013 ROCIO TASSEL MAKER, RHONDA 301.83 PD BORDERLINE 08/17/2013 MAXWELL DO, [place] K 296.90 MOOD DISORDER NOS 08/17/2013 MAXWELL DO, [place] K 301.83 PD BORDERLINE 08/17/2013 ROCIO TASSEL MAKER, RHONDA 296.90 MOOD DISORDER NOS 08/17/2013 ROCIO TASSEL MAKER, RHONDA 301.83 PD BORDERLINE 08/17/2013 TARIK KENDALL, MONTRELL R 296.90 MOOD DISORDER NOS 08/17/2013 TARIK KENDALL, MONTRELL R 301.83 PD BORDERLINE 08/24/2013 CAROLYNE STARR MD 307.81 TENSION HEADACHE 08/24/2013 MEHUL PHD, ANGELICA Rawls 307.81 TENSION HEADACHE 08/24/2013 SIRENA LEMA APRN 307.81 TENSION HEADACHE 08/24/2013 LEIGH VELASCO MD 307.81 TENSION HEADACHE 08/24/2013 SIRENA LEMA APRN 307.81 TENSION HEADACHE 08/24/2013 SIRENA LEMA APRN 307.81 TENSION HEADACHE 08/24/2013 KIEL FABIAN APRN 307.81 TENSION HEADACHE 08/24/2013 CAROLYNE STARR MD 307.81 TENSION HEADACHE 08/24/2013 SHERI HALEY APRN 307.81 TENSION HEADACHE 08/24/2013 ROCIO KENDALL RHONDA 307.81 TENSION HEADACHE 08/24/2013 L[place] MAXWELL DO K 307.81 TENSION HEADACHE 08/24/2013 ROCIO ENOCH, RHONDA 307.81 TENSION HEADACHE 08/24/2013 YANET MAXWELL DOA K 307.81 TENSION HEADACHE 08/24/2013 SHERI HALEY APRN 307.81 TENSION HEADACHE 08/24/2013 ROCIOTYSON KENDALL, RHONDA 307.81 TENSION HEADACHE 08/24/2013 SHERI HALEY APRN T 307.81 TENSION HEADACHE 08/24/2013 ROCIO KENDALL RHONDA 307.81 TENSION HEADACHE 08/24/2013 L[place] MAXWELL DO K 307.81 TENSION HEADACHE 08/24/2013 ROCIO TASSEL MAKER, RHONDA 307.81 TENSION HEADACHE 08/24/2013 TARIK KENDALL MONTRELL R 307.81 TENSION HEADACHE 11/10/2013 LEIGH VELASCO MD 461.9 SINUSITIS ACUTE 11/10/2013 LEIGH VELASCO MD 757.39 KERATITIS FOLLICULARIS (DARIER'S DISEASE) 11/10/2013 SIRENA LEMA APRN 461.9 SINUSITIS ACUTE 11/10/2013 SIRENA LEMA APRN 757.39 KERATITIS FOLLICULARIS (DARIER'S DISEASE) 11/10/2013 SIRENA LEMA APRN 461.9 SINUSITIS ACUTE 11/10/2013 SIRENA LEMA APRN 757.39 KERATITIS FOLLICULARIS (DARIER'S DISEASE) 11/10/2013 KIEL FABIAN APRN 461.9 SINUSITIS ACUTE 11/10/2013 KIEL FABIAN APRN A 757.39 KERATITIS FOLLICULARIS (DARIER'S DISEASE ) 11/10/2013 CAROLYNE STARR MD 461.9 SINUSITIS ACUTE 11/10/2013 CAROLYNE STARR MD 757.39 KERATITIS FOLLICULARIS (DARIER'S DISEASE) 11/10/2013 SHERI HALEY APRN 461.9 SINUSITIS ACUTE 11/10/2013 SHERI HALEY APRN 757.39 KERATITIS FOLLICULARIS (DARIER'S DISEASE ) 11/10/2013 RHONDA CHAN APRN 461.9 SINUSITIS ACUTE 11/10/2013 RHONDA CHAN APRN 757.39 KERATITIS FOLLICULARIS (DARIER'S DISEASE) 11/10/2013 LONDON MAXWELL DO 461.9 SINUSITIS ACUTE 11/10/2013 L[place] MAXWELL DO 757.39 KERATITIS FOLLICULARIS (DARIER'S DISEASE) 11/10/2013 RHONDA CHAN APRN 461.9 SINUSITIS ACUTE 11/10/2013 RHONDA CHAN APRN 757.39 KERATITIS FOLLICULARIS (DARIER'S DISEASE) 11/10/2013 LONDON MAXWELL DO 461.9 SINUSITIS ACUTE 11/10/2013 L[place] MAXWELL DO 757.39 KERATITIS FOLLICULARIS (DARIER'S DISEASE) 11/10/2013 SHERI HALEY APRN 461.9 SINUSITIS ACUTE 11/10/2013 SHERI HALEY APRN 757.39 KERATITIS FOLLICULARIS (DARIER'S DISEASE ) 11/10/2013 RHONDA CHAN APRN 461.9 SINUSITIS ACUTE 11/10/2013 RHONDA CHAN APRN 757.39 KERATITIS FOLLICULARIS (DARIER'S DISEASE) 11/10/2013 SHERI HALEY APRN 461.9 SINUSITIS ACUTE 11/10/2013 SHERI HALEY APRN 757.39 KERATITIS FOLLICULARIS (DARIER'S DISEASE ) 11/10/2013 ROCIO TASSEL MAKER, RHONDA 461.9 SINUSITIS ACUTE 11/10/2013 ROICO TASSEL MAKER, RHONDA 757.39 KERATITIS FOLLICULARIS (DARIER'S DISEASE) 11/10/2013 MAXWELL DO, [place] K 461.9 SINUSITIS ACUTE 11/10/2013 MAXWELL DO, [place] K 757.39 KERATITIS FOLLICULARIS (DARIER'S DISEASE) 11/10/2013 ROCIO TASSEL MAKER, RHONDA 461.9 SINUSITIS ACUTE 11/10/2013 ROCIO KENDALL, RHONDA 757.39 KERATITIS FOLLICULARIS (DARIER'S DISEASE) 11/10/2013 TARIK KENDALL, MONTRELL R 461.9 SINUSITIS ACUTE 11/10/2013 TARIK KENDALL, MONTRELL R 757.39 KERATITIS FOLLICULARIS (DARIER'S DISEASE ) 01/19/2014 KIEL FABIAN APRN V16.3 FAM HX CANCER, BREAST 01/19/2014 KIEL FABIAN APRN V72.31 SILK HANGER EXAM, ROUTINE 01/19/2014 KIEL FABIAN APRN V73.81 HPV SCREENING 01/19/2014 KIEL FABIAN APRN V76.10 BREAST CANCER SCREENING 01/19/2014 KIEL FABIAN APRN V76.2 CERVICAL CANCER SCREENING (PAP SMEAR) 01/19/2014 CAROLYNE STARR MD V16.3 FAM HX CANCER, BREAST 01/19/2014 CAROLYNE STARR MD V72.31 SILK HANGER EXAM, ROUTINE 01/19/2014 CAROLYNE STARR MD V73.81 HPV SCREENING 01/19/2014 CAROLYNE STARR MD V76.10 BREAST CANCER SCREENING 01/19/2014 CAROLYNE STARR MD V76.2 CERVICAL CANCER SCREENING (PAP SMEAR) 01/19/2014 SHERI HALEY APRN V16.3 FAM HX CANCER, BREAST 01/19/2014 SHERI HALEY APRN V72.31 SILK HANGER EXAM, ROUTINE 01/19/2014 SHERI HALEY APRN V73.81 HPV SCREENING 01/19/2014 SHERI HALEY APRN V76.10 BREAST CANCER SCREENING 01/19/2014 SHERI HALEY APRN V76.2 CERVICAL CANCER SCREENING (PAP SMEAR) 01/19/2014 RHONDA CHAN APRN V16.3 FAM HX CANCER, BREAST 01/19/2014 ROCIO TASSEL MAKER, RHONDA V72.31 SILK HANGER EXAM, ROUTINE 01/19/2014 ROCIO TASSEL MAKER, RHONDA V73.81 HPV SCREENING 01/19/2014 ROCIO TASSEL MAKER, RHONDA V76.10 BREAST CANCER SCREENING 01/19/2014 ROCIO TASSEL MAKER, RHONDA V76.2 CERVICAL CANCER SCREENING (PAP SMEAR) 01/19/2014 L[place] MAXWELL DO K V16.3 FAM HX CANCER, BREAST 01/19/2014 YANET MAXWELL DOA K V72.31 SILK HANGER EXAM, ROUTINE 01/19/2014 ALISSA FIGUEROA [place] K V73.81 HPV SCREENING 01/19/2014 MAXWELL DO [place] K V76.10 BREAST CANCER SCREENING 01/19/2014 ALISSA FIGUEROA [place] K V76.2 CERVICAL CANCER SCREENING (PAP SMEAR) 01/19/2014 ROCIO TASSEL MAKER, RHONDA V16.3 FAM HX CANCER, BREAST 01/19/2014 ROCIO TASSEL MAKER, RHONDA V72.31 SILK HANGER EXAM, ROUTINE 01/19/2014 ROCIO TASSEL MAKER, RHONDA V73.81 HPV SCREENING 01/19/2014 ROCIO TASSEL MAKER, RHONDA V76.10 BREAST CANCER SCREENING 01/19/2014 ROCIO TASSEL MAKER, RHONDA V76.2 CERVICAL CANCER SCREENING (PAP SMEAR) 01/19/2014 YANET MAXWELL DOA K V16.3 FAM HX CANCER, BREAST 01/19/2014 YANET MAXWELL DOA K V72.31 SILK HANGER EXAM, ROUTINE 01/19/2014 YANET MAXWELL DOA K V73.81 HPV SCREENING 01/19/2014 YANET MAXWELL DOA K V76.10 BREAST CANCER SCREENING 01/19/2014 YANET MAXWELL DOA K V76.2 CERVICAL CANCER SCREENING (PAP SMEAR) 01/19/2014 SHERI HALEY APRN V16.3 FAM HX CANCER, BREAST 01/19/2014 SHERI HALEY APRN V72.31 SILK HANGER EXAM, ROUTINE 01/19/2014 SHERI HALEY APRN V73.81 HPV SCREENING 01/19/2014 SHERI HALEY APRN V76.10 BREAST CANCER SCREENING 01/19/2014 SHERI HALEY APRN V76.2 CERVICAL CANCER SCREENING (PAP SMEAR) 01/19/2014 ROCIO KENDALL RHONDA V16.3 FAM HX CANCER, BREAST 01/19/2014 ROCIO TASSEL MAKER, RHONDA V72.31 SILK HANGER EXAM, ROUTINE 01/19/2014 ROCIO TASSEL MAKER, RHONDA V73.81 HPV SCREENING 01/19/2014 ROCIO TASSEL MAKER, RHONDA V76.10 BREAST CANCER SCREENING 01/19/2014 ROCIO TASSEL MAKER, RHONDA V76.2 CERVICAL CANCER SCREENING (PAP SMEAR) 01/19/2014 SHERI HALEY APRN V16.3 FAM HX CANCER, BREAST 01/19/2014 SHERI HALEY APRN V72.31 SILK HANGER EXAM, ROUTINE 01/19/2014 SHERI HALEY APRN V73.81 HPV SCREENING 01/19/2014 SHERI HALEY APRN V76.10 BREAST CANCER SCREENING 01/19/2014 SHERI HALEY APRN V76.2 CERVICAL CANCER SCREENING (PAP SMEAR) 01/19/2014 ROCIO TASSEL MAKER, RHONDA V16.3 FAM HX CANCER, BREAST 01/19/2014 ROCIO TASSEL MAKER, RHONDA V72.31 SILK HANGER EXAM, ROUTINE 01/19/2014 ROCIO TASSEL MAKER, RHONDA V73.81 HPV SCREENING 01/19/2014 ROCIO KENDALL, RHONDA V76.10 BREAST CANCER SCREENING 01/19/2014 ROCIO TASSEL MAKER, RHONDA V76.2 CERVICAL CANCER SCREENING (PAP SMEAR) 01/19/2014 LONDON MAXWELL DO V16.3 FAM HX CANCER, BREAST 01/19/2014 L[place] MAXWELL DO V72.31 SILK HANGER EXAM, ROUTINE 01/19/2014 LONDON MAXWELL DO V73.81 HPV SCREENING 01/19/2014 LONDON MAXWELL DO V76.10 BREAST CANCER SCREENING 01/19/2014 LONDON MAXWELL DO V76.2 CERVICAL CANCER SCREENING (PAP SMEAR) 01/19/2014 ROCIO TASSEL MAKER, RHONDA V16.3 FAM HX CANCER, BREAST 01/19/2014 ROCIO TASSEL MAKER, RHONDA V72.31 SILK HANGER EXAM, ROUTINE 01/19/2014 ROCIO TASSEL MAKER, RHONDA V73.81 HPV SCREENING 01/19/2014 ROCIO TASSEL MAKER, RHONDA V76.10 BREAST CANCER SCREENING 01/19/2014 ROCIO TASSEL MAKER, RHONDA V76.2 CERVICAL CANCER SCREENING (PAP SMEAR) 01/19/2014 MONTRELL MONTANEZ APRN R V16.3 FAM HX CANCER, BREAST 01/19/2014 MONTRELL MONTANEZ APRN R V72.31 SILK HANGER EXAM, ROUTINE 01/19/2014 MONTRELL MONTANEZ APRN V73.81 HPV SCREENING 01/19/2014 MONTRELL MONTANEZ APRN V76.10 BREAST CANCER SCREENING 01/19/2014 MONTRELL MONTANEZ APRN V76.2 CERVICAL CANCER SCREENING (PAP SMEAR) 03/22/2014 L[place]ON MAXWELL DO 719.41 PAIN- SHOULDER 03/22/2014 ROCIOTYSON KENDALL RHONDA 719.41 PAIN- SHOULDER 03/22/2014 L[place] MAXWELL DO 719.41 PAIN- SHOULDER 03/22/2014 SHERI HALEY APRN 719.41 PAIN- SHOULDER 03/22/2014 ROCIOTYSON KENDALL, RHONDA 719.41 PAIN- SHOULDER 03/22/2014 SHERI HALEY APRN 719.41 PAIN- SHOULDER 03/22/2014 ROCIOTYSON KENDALL RHONDA 719.41 PAIN- SHOULDER 03/22/2014 L[place]ON MAXWELL DO 719.41 PAIN- SHOULDER 03/22/2014 ROCIOTYSON KENDALL RHONDA 719.41 PAIN- SHOULDER 03/22/2014 MONTRELL MONTANEZ APRN 719.41 PAIN- SHOULDER 04/10/2014 MARISELA ROBLEDO DO Ot 719.41 JOINT PAIN-SHLDER 04/10/2014 MARISELA ROBLEDO DO Ot 840.9 SPRAIN SHOULDER/ARM NOS 04/10/2014 MARISELA ROBLEDO DO Ot 923.00 CONTUSION SHOULDER REG 04/10/2014 MARISELA ROBLEDO DO Ot E888.1 FALL STRIKING OBJECT NEC 04/18/2014 L[place]ON MAXWELL DO 110.1 DERMATOPHYTOSIS OF NAIL 04/18/2014 SHERI HALEY APRN 110.1 DERMATOPHYTOSIS OF NAIL 04/18/2014 RHONDA CHAN APRN 110.1 DERMATOPHYTOSIS OF NAIL 04/18/2014 SHERI HALEY APRN 110.1 DERMATOPHYTOSIS OF NAIL 04/18/2014 FAYE CHAN APRNETTE 110.1 DERMATOPHYTOSIS OF NAIL 04/18/2014 L[place] MAXWELL DO 110.1 DERMATOPHYTOSIS OF NAIL 04/18/2014 FAYE CHAN APRNETTE 110.1 DERMATOPHYTOSIS OF NAIL 04/18/2014 MONTRELL MONTANEZ APRN R 110.1 DERMATOPHYTOSIS OF NAIL 06/02/2014 MARISELA ROBLEDO DO Ot 682.6 CELLULITIS OF LEG 06/02/2014 MARISELA ROBLEDO DO Ot 729.5 PAIN IN LIMB 06/06/2014 SHERI HALEY APRN 682.9 CELLULITIS AND ABSCESS OF UNSPECIFIED SITES 06/06/2014 ROCIO KENDALL, RHONDA 682.9 CELLULITIS AND ABSCESS OF UNSPECIFIED SITES 06/06/2014 ALISSA [place] 682.9 CELLULITIS AND ABSCESS OF UNSPECIFIED SITES 06/06/2014 ROCIO DAVIDN, RHONDA 682.9 CELLULITIS AND ABSCESS OF UNSPECIFIED SITES 06/06/2014 MONTRELL MONTANEZ APRN R 682.9 CELLULITIS AND ABSCESS OF UNSPECIFIED SITES 08/22/2014 ALISSA [place] K 466.0 ACUTE BRONCHITIS 08/22/2014 RHONDA CHAN APRN 466.0 ACUTE BRONCHITIS 08/22/2014 MONTRELL MONTANEZ APRN R 466.0 ACUTE BRONCHITIS 10/26/2014 Ot 707.10 10/26/2014 Ot V58.30 10/26/2014 Ot 782.2 10/26/2014 MARISELA ROBLEDO DO Ot 466.0 ACUTE BRONCHITIS 10/26/2014 MARISELA ROBLEDO DO Ot 682.6 CELLULITIS OF LEG 10/26/2014 MARISELA ROBLEDO DO Ot 729.5 PAIN IN LIMB 10/26/2014 MARISELA ROBLEDO DO Ot 757.39 SKIN ANOMALY NEC 12/20/2014 MONTRELL MONTANEZ APRN R 388.70 OTALGIA UNSPECIFIED 12/20/2014 MONTRELL MONTANEZ APRN R 461.9 SINUSITIS ACUTE 03/02/2015 DELANEY GARZA TASSEL MAKER Ot 682.6 CELLULITIS OF LEG 03/02/2015 DELANEY GARZA TASSEL MAKER Ot 757.39 SKIN ANOMALY NEC 03/02/2015 Ot 707.10 03/02/2015 Ot V58.30 03/02/2015 Ot 782.2 06/10/2015 Ot 707.10 06/10/2015 Ot V58.30 06/10/2015 Ot 782.2 06/10/2015 MARLIN KEITH Ot 682.6 CELLULITIS OF LEG 06/10/2015 MARLIN KEITH Ot 757.39 SKIN ANOMALY NEC 06/10/2015 MARLIN KEITH Ot 780.60 FEVER, UNSPECIFIED 06/10/2015 Ot 707.10 06/10/2015 Ot V58.30 06/10/2015 Ot 782.2 06/12/2015 Ot 707.10 06/12/2015 Ot V58.30 06/12/2015 Ot 782.2 06/12/2015 DELANEY GARZA TASSEL MAKER Ot 682.6 CELLULITIS OF LEG 09/15/2015 Ot 707.10 09/15/2015 Ot V58.30 09/15/2015 Ot 782.2 09/15/2015 Ot 707.10 09/15/2015 Ot V58.30 09/18/2015 Ot 707.10 09/18/2015 Ot V58.30 09/18/2015 Ot 782.2 09/19/2015 LONDON MAXWELL DO Ot B96.1 KLEBSIELLA PNEUMONIAE THE CAUSE OF DI 09/19/2015 LONDON MAXWELL DO Ot F31.9 BIPOLAR DISORDER, UNSPECIFIED 09/19/2015 LONDON MAXWELL DO Ot G47.33 OBSTRUCTIVE SLEEP APNEA (ADULT) (PEDIATR 09/19/2015 LONDON MAXWELL DO Ot J20.9 ACUTE BRONCHITIS, UNSPECIFIED 09/19/2015 LONDON MAXWELL DO Ot N39.0 URINARY TRACT INFECTION, SITE NOT SPECIF 09/19/2015 LONDON MAXWELL DO Ot 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 09/19/2015 LONDON MAXWELL DO Ot Z23 ENCOUNTER FOR IMMUNIZATION 09/19/2015 LONDON MAXWELL DO Ot F31.9 09/19/2015 LONDON MAXWELL DO Ot G47.33 09/19/2015 LONDON MAXWELL DO Ot J20.9 09/19/2015 LONDON MAXWELL DO Ot Q82.8 09/22/2015 DELANEY GARZA TASSEL MAKER Ot J40 BRONCHITIS, NOT SPECIFIED ACUTE OR CH 09/22/2015 Ot 707.10 09/22/2015 Ot V58.30 09/22/2015 Ot 782.2 09/25/2015 KIKO ALMANZA MD Ot J40 BRONCHITIS, NOT SPECIFIED ACUTE OR CH 09/25/2015 KIKO ALMANZA MD Ot R51 HEADACHE 12/12/2015 OLGA NICE MD Ot L97.211 12/12/2015 OLGA NICE MD G Ot L97.221 12/12/2015 TEX HUDSON, OLGA Brooks Ot Q82.8 12/20/2015 TEX HUDSON, OLGA Brooks Ot L97.211 12/20/2015 TEX HUDSON, OLGA Brooks Ot L97.221 12/20/2015 TEX HUDSON, OLGA Brooks Ot Q82.8 12/20/2015 TEX HUDSON, OLGA Brooks Ot L97.211 12/20/2015 TEX HUDSON, OLGA Brooks Ot L97.221 12/20/2015 TEX HUDSON, OLGA Brooks Ot Q82.8 12/20/2015 TEX HUDSON, OLGA Brooks Ot L97.211 12/20/2015 TEX HUDSON, OLGA Brooks Ot L97.221 12/20/2015 TEX HUDSON, OLGA Cecilia Ot Q82.8 12/20/2015 Ot 707.10 12/20/2015 Ot V58.30 12/20/2015 Ot 782.2 12/20/2015 TEX HUDSON, OLGA Brooks Ot L97.211 12/20/2015 TEX HUDSON, OLGA Brooks Ot L97.221 12/20/2015 TEX HUDSON, OLGA Brooks Ot Q82.8 12/20/2015 TEX HUDSON, OLGA Brooks Ot L97.211 12/20/2015 TEX HUDSON, OLGA Brooks Ot L97.221 12/20/2015 TEX HUDSON, OLGA Brooks Ot Q82.8 12/20/2015 TEX HUDSON, OLGA Brooks Ot L97.211 12/20/2015 TEX HUDSON, OLGA Brooks Ot L97.221 12/20/2015 TEX HUDSON, OLGA Brooks Ot Q82.8 12/21/2015 MEENA DO, MARISELA K Ot 466.0 12/21/2015 MEENA DO, MARISELA K Ot 682.6 12/21/2015 MEENA DO, MARISELA K Ot 729.5 12/21/2015 MEENA DO, MARISELA K Ot 757.39 12/21/2015 MARLIN KEITH Ot 682.6 12/21/2015 MARLIN KEITH Ot 757.39 12/21/2015 MARLIN KEITH Ot 780.60 12/21/2015 DELANEY GARZA APRN Ot 682.6 12/21/2015 DELANEY GARZA APRN Ot J40 01/08/2016 OLGA NICE MD Ot L97.211 NON-PRS CHRONIC ULCER OF RIGHT CALF LIMI 01/08/2016 OLGA NICE MD Ot L97.221 NON-PRS CHRONIC ULCER OF LEFT CALF LIMIT 01/08/2016 OLGA NICE MD Ot 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 01/17/2016 OLGA NICE MD, Ot L97.211 NON-PRS CHRONIC ULCER OF RIGHT CALF LIMI 01/17/2016 OLGA NICE MD, Ot L97.221 NON-PRS CHRONIC ULCER OF LEFT CALF LIMIT 01/17/2016 OLGA NICE MD Ot 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 02/01/2016 MEENA FIGUEROA MARISELA K Ot 719.41 JOINT PAIN-SHLDER 02/01/2016 MEENA FIGUEROA MARISELA K Ot 840.9 SPRAIN SHOULDER/ARM NOS 02/01/2016 GERI ROBLEDO DOA K Ot 923.00 CONTUSION SHOULDER REG 02/01/2016 GERI ROBLEDO DOA K Ot E888.1 FALL STRIKING OBJECT NEC 02/22/2016 OLGA PURDY Ot S49.92XA UNSP INJURY OF LEFT SHOULDER AND UPPER A 02/22/2016 OLGA PURDY Ot X58.XXXA EXPOSURE TO OTHER SPECIFIED FACTORS, INI 02/22/2016 OLGA PURDY Ot Y99.8 OTHER EXTERNAL CAUSE STATUS 04/20/2016 MARLIN KEITH Ot L03.116 CELLULITIS OF LEFT LOWER LIMB 04/20/2016 MARLIN KEITH Ot R60.0 LOCALIZED EDEMA 04/20/2016 Ot 707.10 ULCER OF LOWER LIMB NOS 04/20/2016 Ot V58.30 ENCOUNTER FOR CHANGE OR REMOVAL OF NONSU 04/20/2016 Ot 782.2 LOCAL SUPRFICIAL SWELLNG 04/20/2016 OLGA NICE MD Ot L97.211 NON-PRS CHRONIC ULCER OF RIGHT CALF LIMI 04/20/2016 OLGA NICE MD Ot L97.221 NON-PRS CHRONIC ULCER OF LEFT CALF LIMIT 04/20/2016 OLGA NICE MD Ot 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 04/20/2016 OLGA PURDY Ot S49.92XA UNSP INJURY OF LEFT SHOULDER AND UPPER A 04/20/2016 OLGA PURDY Ot X58.XXXA EXPOSURE TO OTHER SPECIFIED FACTORS, INI 04/20/2016 OLGA PURDY Ot Y99.8 OTHER EXTERNAL CAUSE STATUS 04/22/2016 MARLIN KEITH Ot L03.116 CELLULITIS OF LEFT LOWER LIMB 04/22/2016 MARLIN KEITH Ot R60.0 LOCALIZED EDEMA 04/23/2016 OLGA PURDY Ot S49.92XA UNSP INJURY OF LEFT SHOULDER AND UPPER A 04/23/2016 OLGA PURDY Ot X58.XXXA EXPOSURE TO OTHER SPECIFIED FACTORS, INI 04/23/2016 OLGA PURDY Ot Y99.8 OTHER EXTERNAL CAUSE STATUS 09/13/2016 Ot 707.10 ULCER OF LOWER LIMB NOS 09/13/2016 Ot V58.30 ENCOUNTER FOR CHANGE OR REMOVAL OF NONSU 09/13/2016 Ot 782.2 LOCAL SUPRFICIAL SWELLNG 09/13/2016 OLGA NICE MD Ot L97.211 NON-PRS CHRONIC ULCER OF RIGHT CALF LIMI 09/13/2016 OLGA NICE MD Ot L97.221 NON-PRS CHRONIC ULCER OF LEFT CALF LIMIT 09/13/2016 OLGA NICE MD Ot 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 09/13/2016 OLGA PURDY Ot S49.92XA UNSP INJURY OF LEFT SHOULDER AND UPPER A 09/13/2016 OLGA PURDY Ot X58.XXXA EXPOSURE TO OTHER SPECIFIED FACTORS, INI 09/13/2016 OLGA PURDY Ot Y99.8 OTHER EXTERNAL CAUSE STATUS 09/16/2016 OCTAVIO RANDALL GENERAL MACHINE OPERATOR Ot S06.0X0D CONCUSSION WITHOUT LOSS OF CONSCIOUSNESS 02/08/2017 Ot 707.10 ULCER OF LOWER LIMB NOS 02/08/2017 Ot V58.30 ENCOUNTER FOR CHANGE OR REMOVAL OF NONSU 02/08/2017 Ot 782.2 LOCAL SUPRFICIAL SWELLNG 02/08/2017 OLGA NICE MD Ot L97.211 NON-PRS CHRONIC ULCER OF RIGHT CALF LIMI 02/08/2017 OLGA NICE MD Ot L97.221 NON-PRS CHRONIC ULCER OF LEFT CALF LIMIT 02/08/2017 OLGA NICE MD Ot 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 02/08/2017 OLGA PURDY Ot S49.92XA UNSP INJURY OF LEFT SHOULDER AND UPPER A 02/08/2017 OLGA PURDY Ot X58.XXXA EXPOSURE TO OTHER SPECIFIED FACTORS, INI 02/08/2017 OLGA PURDY Ot Y99.8 OTHER EXTERNAL CAUSE STATUS 02/08/2017 OCTAVIO RANDALL Ot S06.0X0D CONCUSSION WITHOUT LOSS OF CONSCIOUSNESS 02/08/2017 Ot 707.10 ULCER OF LOWER LIMB NOS 02/08/2017 Ot V58.30 ENCOUNTER FOR CHANGE OR REMOVAL OF NONSU 02/08/2017 Ot 707.10 ULCER OF LOWER LIMB NOS 02/08/2017 Ot V58.30 ENCOUNTER FOR CHANGE OR REMOVAL OF NONSU 02/08/2017 KEV MURILLO MD Ot E11.9 TYPE 2 DIABETES MELLITUS WITHOUT COMPLIC 02/08/2017 KEV MURILLO MD, Ot K21.9 GASTRO-ESOPHAGEAL REFLUX DISEASE WITHOUT 02/08/2017 KEV MURILLO MD Ot L03.115 CELLULITIS OF RIGHT LOWER LIMB 02/08/2017 KEV MURILLO MD Ot L03.116 CELLULITIS OF LEFT LOWER LIMB 02/08/2017 KEV MURILLO MD Ot M79.7 FIBROMYALGIA 02/08/2017 KEV MURILLO MD Ot 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 02/08/2017 KEV MURILLO MD Ot R07.89 OTHER CHEST PAIN Procedures Code [place] [address] UA LONG DIP 06/13 03308 PSYCH PHARM MGMT 07/20/2012 82000 NAIL FOLD WEDGE EXCISION 07/24/2012 00642 PSYCH PHARM MGMT 08/19/2012 14993 US UPPER EXTREMITY ULTRASOUND 09/26/2012 46994 VENOUS DOPPLER UNILATERAL/LIMITED 10/07/2012 03640 VENOUS DOPPLER UNILATERAL/LIMITED 10/14/2012 43352 ROUTINE VENIPUNCTURE 11/03/2012 83066 UA W/ CULTURE IF INDICATED 11/03/2012 01394 BMP 11/03/2012 4219480 GFR CALC (RESULT ONLY) 11/03/2012 48804 CULTURE MRSA 75627 EAR LAVAGE ONE OR BOTH EARS 02/23/2013 61786 CULTURE EAR & STAIN 02/23/2013 56792 THERAPUTIC INJ SQ/IM 03/02/2013 J0696 ROCEPHIN INJ 23167 ROUTINE VENIPUNCTURE 04/27/2013 34704 CMP 04/27/2013 0887458 GFR CALC (RESULT ONLY) 04/27/2013 15162 CBC 04/27/2013 76669 CARBAMAZAPINE (TEGRETOL) TOTAL 04/27/2013 23341 PSYCH DIAGNOSTIC EVALUATION 06/02/2013 14718 PSYTX PT&/FAMILY 45 MINUTES 06/21/2013 27413 PSYTX PT&/FAMILY 30 MINUTES 07/05/2013 44901 PSYTX PT&/FAMILY 45 MINUTES 09/07/2013 53346 TSH 01/10/2014 22005 ROUTINE VENIPUNCTURE 01/12/2014 87906 A1C (IN-HOUSE) 79306 CBC 01/12/2014 21472 LIPID PANEL 01/12 8906515 GFR CALC (RESULT ONLY) 01/12/2014 85104 CMP 01/12/2014 03681 MAMMOGRAM, SCREENING 01/19/2014 76220 PAP SMEAR 2013 Q0091 PAP SMEAR OBTAIN SMEAR 01/19/2014 78254 XRAY SHOULDER LEFT COMP 2 VIEWS 03/22/2014 23093 JOINT INJECTION- LARGE JOINT (SPECIFY MEDCIN DESCRIPTION) 04/18/2014 Results Test Result Range Gram stain microscopy - 04/19/16 21:55 GRAM STAIN RESULT MODERATE # GRAM POSITIVE COCCI NRG Bacteria identification in wound by culture - 04/19/16 21:55 Bacteria identification in wound by culture [id number] NRG FREE [place] [address], 04-22-16 NRG QUANTITY OF GROWTH Scant Growth NRG MRSA AGAR MRSA isolated (Screening test for MRSA is positive) NRG CALL POSITIVES (F1 HELP) CALLED TO [facility] 04/20/16 15:45 NRG Gram stain microscopy - 04/19/16 21:55 GRAM STAIN RESULT MODERATE # GRAM POSITIVE COCCI NRG Bacteria identification in wound by culture - 04/19/16 21:55 Bacteria identification in wound by culture [id number] NRG QUANTITY OF GROWTH Abundant Growth NRG MRSA AGAR MRSA isolated (Screening test for MRSA is positive) NRG CALL POSITIVES (F1 HELP) CALLED TO [facility] IN ER 04/20/16 15: [address] NRG Bacterial susceptibility panel - 04/19/16 21:55 Oxacillin susceptibility test by minimum inhibitory concentration >= NRG Gentamicin susceptibility test by minimum inhibitory concentration >= NRG Clindamycin susceptibility test by minimum inhibitory concentration <= NRG Erythromycin susceptibility test by minimum inhibitory concentration >= NRG Trimethoprim/sulfamethoxazole susceptibility test by minimum inhibitoryconcentration 20 NRG Vancomycin susceptibility test by minimum inhibitory concentration <= NRG Levofloxacin susceptibility test by minimum inhibitory concentration 4 NRG Rifampin susceptibility test by minimum inhibitory concentration <= NRG Tetracycline susceptibility test by minimum inhibitory concentration <= NRG Ciprofloxacin susceptibility test by minimum inhibitory concentration R NRG Complete blood count (CBC) with automated white blood cell (WBC) differential - 04/19/16 22:14 Blood leukocytes automated count (number/volume) 12.5 10*3/ uL 4.3-11.0 Blood erythrocytes automated count (number/volume) 4.67 10*6 /uL 4.35-5.85 Venous blood hemoglobin measurement (mass/volume) 12.0 g/dL 11.5-16.0 Blood hematocrit (volume fraction) 38 % 35-52 Automated erythrocyte mean corpuscular volume 80 [foz_us] 80-99 Automated erythrocyte mean corpuscular hemoglobin (mass per erythrocyte) 26 pg 25-34 Automated erythrocyte mean corpuscular hemoglobin concentration measurement ( mass/volume) 32 g/dL 32-36 Automated erythrocyte distribution width ratio 14.8 % 10.0-14.5 Automated blood platelet count (count/volume) 321 10*3/uL 130-400 Automated blood platelet mean volume measurement 9.2 [foz_us ] 7.4-10.4 Automated blood neutrophils/100 leukocytes 71 % 42-75 Automated blood lymphocytes/100 leukocytes 21 % 12-44 Blood monocytes/100 leukocytes 5 % 0-12 Automated blood eosinophils/100 leukocytes 3 % 0-10 Automated blood basophils/100 leukocytes 0 % 0-10 Blood neutrophils automated count (number/volume) 8.9 10*3 1.8-7.8 Blood lymphocytes automated count (number/volume) 2.7 10*3 1.0-4.0 Blood monocytes automated count (number/volume) 0.6 10*3 0.0-1.0 Automated eosinophil count 0.3 10*3/uL 0.0-0.3 Automated blood basophil count (count/volume) 0.0 10*3/uL 0.0-0.1 Whole blood basic metabolic panel - 04/19/16 22:14 Serum or plasma sodium measurement (moles/volume) 138 mmol/ L 135-145 Serum or plasma potassium measurement (moles/volume) 3.8 mmol/L 3.6-5.0 Serum or plasma chloride measurement (moles/volume) 104 mmol /L 98-107 Carbon dioxide 27 mmol/L 21-32 Serum or plasma anion gap determination (moles/volume) 7 mmol/L 5-14 Serum or plasma urea nitrogen measurement (mass/volume) 12 mg/dL 7-18 Serum or plasma creatinine measurement (mass/volume) 0.74 mg /dL 0.60-1.30 Serum or plasma urea nitrogen/creatinine mass ratio 16 NRG Serum or plasma creatinine measurement with calculation of estimated glomerular filtration rate > NRG Serum or plasma glucose measurement (mass/volume) 99 mg/dL 70-105 Serum or plasma calcium measurement (mass/volume) 8.6 mg/dL 8.5-10.1 Serum or plasma C reactive protein measurement (mass/volume) - 04/19/16 22:14 Serum or plasma C reactive protein measurement (mass/volume) 2.94 mg/dL 0.00-0.50 Gram stain microscopy - 02/08/17 03:36 GRAM STAIN RESULT FEW GRAM POS COCCI IN CHAINS (STREP OR RELATED GENUS) NR Bacteria identification in wound by culture - 02/08/17 03:36 Bacteria identification in wound by culture [id number] [facility] FREE TEXT EXTERNAL SENSITIVITY REPORTED 02/10/17 10:15 NRG QUANTITY OF GROWTH Scant Growth [facility] Bacterial susceptibility panel - 02/08/17 03:36 Oxacillin susceptibility test by minimum inhibitory concentration >= NRG Gentamicin susceptibility test by minimum inhibitory concentration <= NRG Clindamycin susceptibility test by minimum inhibitory concentration <= NRG Erythromycin susceptibility test by minimum inhibitory concentration >= NRG Trimethoprim/sulfamethoxazole susceptibility test by minimum inhibitoryconcentration <= NRG Vancomycin susceptibility test by minimum inhibitory concentration 1 NRG Levofloxacin susceptibility test by minimum inhibitory concentration 4 NRG Rifampin susceptibility test by minimum inhibitory concentration <= NRG Tetracycline susceptibility test by minimum inhibitory concentration <= NRG Ciprofloxacin susceptibility test by minimum inhibitory concentration R NRG Complete blood count (CBC) with automated white blood cell (WBC) differential - 02/08/17 04:00 Blood leukocytes automated count (number/volume) 13.4 10*3/ uL 4.3-11.0 Blood erythrocytes automated count (number/volume) 4.99 10*6 /uL 4.35-5.85 Venous blood hemoglobin measurement (mass/volume) 12.6 g/dL 11.5-16.0 Blood hematocrit (volume fraction) 39 % 35-52 Automated erythrocyte mean corpuscular volume 79 [foz_us] 80-99 Automated erythrocyte mean corpuscular hemoglobin (mass per erythrocyte) 25 pg 25-34 Automated erythrocyte mean corpuscular hemoglobin concentration measurement ( mass/volume) 32 g/dL 32-36 Automated erythrocyte distribution width ratio 14.8 % 10.0-14.5 Automated blood platelet count (count/volume) 383 10*3/uL 130-400 Automated blood platelet mean volume measurement 9.2 [foz_us ] 7.4-10.4 Automated blood neutrophils/100 leukocytes 73 % 42-75 Automated blood lymphocytes/100 leukocytes 20 % 12-44 Blood monocytes/100 leukocytes 4 % 0-12 Automated blood eosinophils/100 leukocytes 3 % 0-10 Automated blood basophils/100 leukocytes 0 % 0-10 Blood neutrophils automated count (number/volume) 9.8 10*3 1.8-7.8 Blood lymphocytes automated count (number/volume) 2.7 10*3 1.0-4.0 Blood monocytes automated count (number/volume) 0.6 10*3 0.0-1.0 Automated eosinophil count 0.4 10*3/uL 0.0-0.3 Automated blood basophil count (count/volume) 0.0 10*3/uL 0.0-0.1 Serum or plasma choriogonadotropin ( test) detection - 02/08/17 04:00 Serum or plasma choriogonadotropin ( test) detection NEGATIVE NEGATIVE Comprehensive metabolic panel - 02/08/17 04:00 Serum or plasma sodium measurement (moles/volume) 138 mmol/ L 135-145 Serum or plasma potassium measurement (moles/volume) 3.9 mmol/L 3.6-5.0 Serum or plasma chloride measurement (moles/volume) 100 mmol /L 98-107 Carbon dioxide 23 mmol/L 21-32 Serum or plasma anion gap determination (moles/volume) 15 mmol/L 5-14 Serum or plasma urea nitrogen measurement (mass/volume) 13 mg/dL 7-18 Serum or plasma creatinine measurement (mass/volume) 0.70 mg /dL 0.60-1.30 Serum or plasma urea nitrogen/creatinine mass ratio 19 NRG Serum or plasma creatinine measurement with calculation of estimated glomerular filtration rate > NRG Serum or plasma glucose measurement (mass/volume) 129 mg/dL 70-105 Serum or plasma calcium measurement (mass/volume) 9.4 mg/dL 8.5-10.1 Serum or plasma total bilirubin measurement (mass/volume) 0.3 mg/dL 0.1-1.0 Serum or plasma alkaline phosphatase measurement (enzymatic activity/volume) 109 U/L 40-136 Serum or plasma aspartate aminotransferase measurement (enzymatic activity/ volume) 21 U/L 5-34 Serum or plasma alanine aminotransferase measurement (enzymatic activity/volume ) 28 U/L 0-55 Serum or plasma protein measurement (mass/volume) 8.0 g/dL 6.4-8.2 Serum or plasma albumin measurement (mass/volume) 3.9 g/dL 3.2-4.5 Serum or plasma C reactive protein measurement (mass/volume) - 02/08/17 04:00 Serum or plasma C reactive protein measurement (mass/volume) 3.70 mg/dL 0.00-0.50 Bacterial blood culture - 02/08/17 05:27 Bacterial blood culture NG NRG Magnesium - 02/08/17 05:45 Magnesium 2.3 mg/dL 1.8-2.4 Blood lactic acid measurement (moles/volume) - 02/08/17 05:45 Blood lactic acid measurement (moles/volume) 1.15 mmol/L 0.50-2.00 Serum or plasma troponin i.cardiac measurement (mass/volume) - 02/08/17 05:45 Serum or plasma troponin i.cardiac measurement (mass/volume) < ng/mL <0.30 Myoglobin, serum - 02/08/17 05:45 Myoglobin, serum 21.3 ng/mL 10.0-92.0 Bacterial blood culture - 02/08/17 05:45 Bacterial blood culture NG NRG PT panel in platelet poor plasma by coagulation assay - 02/08/17 06:09 Prothrombin time (PT) in platelet poor plasma by coagulation assay 13.3 s 12.2-14.7 INR in platelet poor plasma or blood by coagulation assay 1.0 0.8-1.4 Activated partial thromboplastin time (aPTT) in platelet poor plasma bycoagulation assay - 02/08/17 06:09 Activated partial thromboplastin time (aPTT) in platelet poor plasma bycoagulation assay 28 s 24-35 Encounters ACCT No. Visit Date/Time Discharge Status Pt. Type Provider Facility Loc./Unit Complaint [id number] 12/20/2014 17:57:00 12/20/2014 23: 59:59 CLS Outpatient MONTRELL MONTANEZ APRN [id number] 10/13/2014 11:38:00 10/13/2014 23: 59:59 CLS Outpatient RHONDA CHAN APRN [id number] 08/22/2014 15:04:00 08/22/2014 23: 59:59 CLS Outpatient LONDON MAXWELL DO [id number] 06/06/2014 14:50:00 06/06/2014 23: 59:59 CLS Outpatient SHERI HALEY APRN [id number] 05/26/2014 15:52:00 05/26/2014 23: 59:59 CLS Outpatient RHONDA CHAN APRN [id number] 05/26/2014 15:52:00 05/26/2014 23: 59:59 CLS Outpatient RHONDA CHAN APRN [id number] 05/04/2014 12:32:00 05/04/2014 23: 59:59 CLS Outpatient SHERI HALEY APRN [id number] 04/18/2014 13:54:00 04/18/2014 23: 59:59 CLS Outpatient LONDON MAXWELL DO [id number] 03/22/2014 16:10:00 03/22/2014 23: 59:59 CLS Outpatient LONDON MAXWELL DO [id number] 02/24/2014 14:11:00 02/24/2014 23: 59:59 CLS Outpatient RHONDA CHAN APRN [id number] 02/24/2014 14:11:00 02/24/2014 23: 59:59 CLS Outpatient RHONDA CHAN APRN [id number] 02/14/2014 12:32:00 02/14/2014 23: 59:59 CLS Outpatient SHERI HALEY APRN [id number] 01/27/2014 11:54:00 01/27/2014 23: 59:59 CLS Outpatient CAROLYNE STARR MD [id number] 01/19/2014 09:48:00 01/19/2014 23: 59:59 CLS Outpatient KIEL FABIAN APRN [id number] 12/14/2013 13:42:00 12/14/2013 23: 59:59 CLS Outpatient SIRENA LEMA APRN [id number] 12/14/2013 13:42:00 12/14/2013 23: 59:59 CLS Outpatient SIRENA LEMA APRN [id number] 10/27/2013 00:00:00 10/27/2013 23: 59:59 CLS Outpatient LEIGH VELASCO MD [id number] 09/07/2013 10:04:00 09/07/2013 23: 59:59 CLS Outpatient ANGELICA CARVER PHD [id number] 08/24/2013 13:57:00 08/24/2013 23: 59:59 CLS Outpatient CAROLYNE STARR MD [id number] 08/17/2013 16:04:00 08/17/2013 23: 59:59 CLS Outpatient SIRENA LEMA APRN [id number] 08/17/2013 16:04:00 08/17/2013 23: 59:59 CLS Outpatient SIRENA LEMA APRN [id number] 07/07/2013 13:48:00 07/07/2013 23: 59:59 CLS Outpatient LEIGH VELASCO MD [id number] 07/05/2013 14:38:00 07/05/2013 23: 59:59 CLS Outpatient ANGELICA CARVER PHD [id number] 06/18/2013 07:59:00 06/18/2013 23: 59:59 CLS Outpatient ANGELICA CARVER PHD [id number] 05/28/2013 10:00:00 05/28/2013 23: 59:59 CLS Outpatient ANDRES HARDWICK DO [id number] 12/01/2012 12:13:00 12/01/2012 23: 59:59 CLS Outpatient ANDRES HARDWICK DO [id number] 11/03/2012 12:27:00 11/03/2012 23: 59:59 CLS Outpatient ANDRES HARDWICK DO [id number] 10/06/2012 15:11:00 10/06/2012 23: 59:59 CLS Outpatient CAROLYNE STARR MD [id number] 09/28/2012 00:00:00 09/28/2012 23: 59:59 CLS Outpatient CAROLYNE STARR MD [id number] 09/26/2012 12:38:00 09/26/2012 23: 59:59 CLS Outpatient [id number] 08/11/2012 14:00:00 08/11/2012 23: 59:59 [place] [id number] 07/15/2012 11:06:00 07/15/2012 23: 59:59 CLS Outpatient ANDRES HARDWICK DO [id number] 03/17/2013 12:13:00 Document Registration [id number] 03/02/2013 14:16:00 Document Registration [id number] 02/26/2013 14:40:00 Document Registration [id number] 02/23/2013 16:38:00 Document Registration [id number] 01/11/2013 13:02:00 Document Registration
[2017-03-26] MEDS ORDERED: NS IV 1000 ML 1,000 ML IV ONE (02:14)
[2017-03-26] MEDS ORDERED: ONDANSETRON 4 MG/2 ML (SDV) Z0FRAN IVP ONE ×2 (02:15→03:30)
[2017-03-26] MEDS ORDERED: RT-ALBUTEROL/IPRATROPIUM 3 ML (DUONEB) VIAL INH ONE ×2 (02:15→04:30)
[2017-03-26] MEDS ORDERED: KETOROLAC 30 MG/ML VIAL IVP ONE ×2 (02:15→04:15)
[2017-03-26 02:53] LABS: BASOPHILS % (AUTO) 0 % (0-10); EOSINOPHILS # (AUTO) 0.6 10^3/uL (0.0-0.3); EOSINOPHILS % (AUTO) 4 % (0-10); LYMPHOCYTES # (AUTO) 1.9 X 10^3 (1.0-4.0); LYMPHOCYTES % (AUTO) 14 % (12-44); MEAN CORPUSCULAR HEMOGLOBIN 25 PG (25-34); MEAN CORPUSCULAR HGB CONC 32 G/DL (32-36); MEAN CORPUSCULAR VOLUME 79 FL (80-99); MEAN PLATELET VOLUME 9.1 FL (7.4-10.4); MONOCYTES # (AUTO) 0.5 X 10^3 (0.0-1.0); MONOCYTES % (AUTO) 3 % (0-12); NEUTROPHILS # (AUTO) 10.9 X 10^3 (1.8-7.8); NEUTROPHILS % (AUTO) 79 % (42-75); PLATELET COUNT 329 10^3/uL (130-400); RED BLOOD COUNT 4.77 10^6/uL (4.35-5.85); RED CELL DISTRIBUTION WIDTH 14.9 % (10.0-14.5); WHITE BLOOD COUNT 13.8 10^3/uL (4.3-11.0)
[2017-03-26 03:12] LABS: ALANINE AMINOTRANSFERASE 21 U/L (0-55); ALBUMIN 3.6 GM/DL (3.2-4.5); ANION GAP 10 MMOL/L (5-14); ASPARTATE AMINO TRANSFERASE 17 U/L (5-34); BILIRUBIN,TOTAL 0.6 MG/DL (0.1-1.0); BLOOD UREA NITROGEN 14 MG/DL (7-18); BUN/CREATININE RATIO 20; CARBON DIOXIDE 24 MMOL/L (21-32); CHLORIDE 104 MMOL/L (98-107); CREATININE SERUM 0.71 MG/DL (0.60-1.30); GFR ESTIMATED > 60; GLUCOSE 123 MG/DL (70-105); POTASSIUM 4.1 MMOL/L (3.6-5.0); SODIUM 138 MMOL/L (135-145); TOTAL PROTEIN 7.6 GM/DL (6.4-8.2)
[2017-03-26] MEDS ORDERED: PROMETHAZINE INJ 25 MG/ML (PHENERGAN) AMP IVP ONE (04:15)
[2017-03-26] MEDS ORDERED: CLINDAMYCIN INJECTION 900 MG in NS (IVPB) 50 ML IV ONE (04:15)
[2017-03-26 04:34] LABS: BILIRUBIN,URINE NEGATIVE (NEGATIVE); KETONES,URINE NEGATIVE (NEGATIVE); LEUKOCYTE ESTERASE ,URINE 2+ (NEGATIVE); NITRITE,URINE NEGATIVE (NEGATIVE); PH,URINE 6 (5-9); PROTEIN,URINE NEGATIVE (NEGATIVE); UROBILINOGEN,URINE NORMAL (NORMAL)
[2017-03-26 04:43] LABS: WBC,URINE 0-2 /HPF
--- NOTE | 2017-03-26 04:49 | ED General ---
General Chief Complaint: Skin/Wound Problems Stated Complaint: SUNBURN,VOMITING Nursing Triage Note: PT TO ED 5 W/ S.O. FOR C/O SUNBURN TO BILAT UPPER ARMS ONSET 03/22. PT REPORTS BLISTERING NOTED TO ARMS. ALSO VOICED CONCERN THAT BURN MAY HAVE CAUSED BREAKDOWN TO WOUNDS ON BILAT FEET. PT ALSO C/O VOMITING SINCE O430 YESTERDAY AM. 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 She recently obtained a sunburn about 4 days ago which exacerbated her Darier's disease. She is concerned that she is developing cellulitis of the lower extremities. She has erythematous rash and cracking of the skin on the anterior lower legs bilaterally. She reports that her skin was nearly clear before obtaining a sunburn. She also complains of cough, nausea, vomiting, generalized abdominal pain and diarrhea. She is having throat and chest pain associated with the vomiting. She has painful inspiration as well and she is noted to be wheezing on exam. She denies fever. Allergies and Home Medications Allergies Coded Allergies: NKANo Known Allergies (Verified Allergy, Mild, 02/08/17) Home Medications Albuterol Sulfate 8.5 Gm Hfa.aer.ad, 8.5 GM IH Q4H PRN for WHEEZING, #1 Prescribed by: SIMBA PATEL on 09/19/15 1206 Clobetasol Propionate 15 Gm Oint...g., 15 GM TP BID, #1 Ref 0 Prescribed by: KEV SHELL on 02/08/17 1403 Furosemide 20 Mg Tablet, 20 MG PO DAILY, (Reported) Ibuprofen 200 Mg Tablet, 800 MG PO TID PRN for PAIN, (Reported) TAKES 4 (200MG) TABLETS Ipratropium/Albuterol Sulfate 3 Ml Ampul.neb, 3 ML IH Q4H PRN for SHORTNESS OF BREATH, #25 Prescribed by: DELANEY GARZA on 09/22/152015 Lurasidone HCl 60 Mg Tablet, 60 MG PO HS, (Reported) Mupirocin 22 Gm Tube, 1 APPLIC TP BID PRN for ITCHING AND RASH, (Reported) APPLY TO LEFT LOWER EXTREMITY SPARINGLY TO AFFECTED AREA(S) Mupirocin 30 Gm Oint...g., 30 GM TP BID, #1 Ref 1 Prescribed by: JUAN FARRAR on 03/26/17 05 Mupirocin Calcium 15 Gm Cream..g., 15 GM TP BID for 7 Days, #1 Ref 0 Prescribed by: KEV SHELL on 02/08/17 1403 Ondansetron 4 Mg Tab.rapdis, 4 MG SL Q4H PRN for NAUSEA/VOMITING-1ST LINE, #10 Prescribed by: JUAN FARRAR on 03/26/17 0538 Promethazine HCl 25 Mg Tablet, 25 MG PO Q6H PRN for NAUSEA/VOMITING, #10 Prescribed by: JUAN FARRAR on 03/26/17 0538 Sulfamethoxazole/Trimethoprim 1 Each Tablet, 1 EACH PO BID, #20 Prescribed by: JUAN FARRAR on 03/26/1738 Terbinafine HCl 15 Gm Cream..g., TP BID PRN for LEG SORES, (Reported) Constitutional: no symptoms reported EENTM: see HPI Respiratory: see HPI Cardiovascular: no symptoms reported Gastrointestinal: see HPI Genitourinary: no symptoms reported : No Musculoskeletal: no symptoms reported Skin: see HPI Psychiatric/Neurological: No Symptoms Reported Hematologic/Lymphatic: No Symptoms Reported Immunological/Allergic: no symptoms reported Past Vgzchfh-Kpcjkg-Krtscu Hx Patient Social History Alcohol Use: Denies Use Recreational Drug Use: Yes (HISTORY OF ILLICIT DRUG USE) Smoking Status: Never a Smoker Recent Foreign Travel: No Contact w/Someone Who Travel: No Recent Infectious Disease Expo: No Recent Hopitalizations: No Immunizations Up To Date Tetanus Booster (TDap): Less than 5yrs PED Vaccines UTD: No Date of Pneumonia Vaccine: Jun 15, 2011 Date of Influenza Vaccine: Sep 16, 2015 Seasonal Allergies Seasonal Allergies: No Surgeries HX Surgeries: Yes (EGD, L MASTOIDECTOMY, R MYRINGOTOMY TUBE, BTL REVERSAL) Surgeries: Appendectomy, Ear Surgery, Gallbladder, Tubal Ligation Respiratory Hx Respiratory Disorders: Yes Respiratory Disorders: Pneumonia, Sleep Apnea Cardiovascular Hx Cardiac Disorders: Yes (-INDUCED HTN) Cardiac Disorders: Hypertension Neurological Hx Neurological Disorders: No 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 System Hx 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 Disorders: No Sexually Transmitted Disease: No HIV/AIDS: No Female 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 Disorders: Denies 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 Genitourinary Hx Genitourinary Disorders: Yes Genitourinary Disorders: Kidney Stones, UTI-Chronic Gastrointestinal Hx Gastrointestinal Disorders: Yes Gastrointestinal Disorders: Gastroesophageal Reflux Musculoskeletal Hx Musculoskeletal Disorders: Yes (CHRONIC GENERALIZED PAIN ) Musculoskeletal Disorders: Degenerate Disk Disease, Arthritis, Fibromyalgia, Chronic Back Pain Endocrine Hx Endocrine Disorders: No Endocrine Disorders: Diabetes, Non-Insulin dep HEENT HX ENT Disorders: Yes (MASTOIDITIS) HEENT Disorders: Chronic Ear Infection Loss of Vision: Denies Hearing Impairment: Hard of Hearing Cancer Hx Cancer: No Psychosocial Hx Psychiatric Problems: Yes (PSYCHOSIS, SOCIAL ANXIETY DISORDER) Behavioral Health Disorders: ADD/ADHD, Anxiety, Suicide Attempts, Bipolar, Personality Disorder, Schizophrenia, Depression Integumentary HX Skin/Integumentary Disorder: Yes (DARIER'S DISEASE. CHRONIC LEG CELLULITIS-- MRSA) Skin/Integumentary Disorders: Recent Skin Changes Blood Transfusions Hx Blood Disorders: No Adverse Reaction to a Blood Tr: No Family Medical History Significant Family History: No Pertinent Family Hx Family Medial History: Cancer Chest pain 03 FATHER, Onset:Unknown UNCLE, Onset:Unknown Congestive heart failure Family history: Allergy 09 BROTHER, Onset:Unknown Family history: Arthritis 03 FATHER, Onset:Unknown 03 MOTHER, Onset:Unknown Family history: Asthma 03 FATHER, Onset:Unknown UNCLE, Onset:Unknown Family history: Diabetes mellitus Family history: Thyroid disorder 09 SISTER, Onset:Unknown Headache 03 MOTHER, Onset:Unknown Heart disease Hereditary disease 03 FATHER, Onset:Unknown 09 BROTHER, Onset:Unknown UNCLE, Onset:Unknown History of - respiratory disease 03 FATHER, Onset:Unknown UNCLE, Onset:Unknown Myocardial infarction Psychotic disorder 09 BROTHER, Onset:Unknown No Family History of: Abdominal aortic aneurysm Antoni's disease Alcoholism Aphasia Cancer of colon Cataract Congenital heart disease Cystic fibrosis Dementia Dysphagia Family history: Alzheimer's disease Family history: Breast disease Family history: Cardiovascular disease Family history: Coronary thrombosis Family history: Gastrointestinal disease Family history: Glaucoma Family history: Hypertension Family history: Osteoporosis Hearing loss History of - anemia History of drug abuse Human immunodeficiency virus (HIV) seropositivity Hypercholesterolemia Infertile Kidney disease Malignant neoplasm of lung Parkinson's disease Prostate cancer Seizure disorder Stroke Tuberculosis Visual impairment Physical Exam Vital Signs Vital Sign - Last 12Hours 03/26/17 01:59 Temp 98.4 Pulse 94 Resp 18 B/P (MAP) 140/83 Pulse Ox 99 O2 Delivery Room Air Capillary Refill : Less Than 3 Seconds General Appearance: No Apparent Distress, WD/WN, Obese HEENT: PERRL/EOMI, Normal ENT Inspection Neck: Normal Inspection Respiratory: No Accessory Muscle Use, No Respiratory Distress, No Crackles, Wheezing Cardiovascular: Regular Rate, Rhythm, No Edema, No Murmur Gastrointestinal: Normal Bowel Sounds, Soft, Tenderness (mild, diffuse) Extremity: Other (warm of blanching erythema and thick plaquing of the anterior lower legs bilaterally with cracking of skin and serosanguineous weeping) Neurologic/Psychiatric: Alert, Oriented x3, No Motor/Sensory Deficits, Normal 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, 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 Norm as Tested Skin: Other (see above) Progress/Results/Core Measures Results/Orders Lab Results Laboratory Tests Test 03/26/17 02:43 03/26/17 04:15 Range/Units White Blood Count 13.8 H 4.3-11.0 10^3/uL Red Blood Count 4.77 4.35-5.85 10^6/uL Hemoglobin 11.9 11.5-16.0 G/DL Hematocrit 38 35-52 % Mean Corpuscular Volume 79 L 80-99 FL Mean Corpuscular Hemoglobin 25 25-34 PG Mean Corpuscular Hemoglobin Concent 32 32-36 G/DL Red Cell Distribution Width 14.9 H 10.0-14.5 % Platelet Count 329 130-400 10^3/uL Mean Platelet Volume 9.1 7.4-10.4 FL Neutrophils (%) (Auto) 79 H 42-75 % Lymphocytes (%) (Auto) 14 12-44 % Monocytes (%) (Auto) 3 0-12 % Eosinophils (%) (Auto) 4 0-10 % Basophils (%) (Auto) 0 0-10 % Neutrophils # (Auto) 10.9 H 1.8-7.8 X 10^3 Lymphocytes # (Auto) 1.9 1.0-4.0 X 10^3 Monocytes # (Auto) 0.5 0.0-1.0 X 10^3 Eosinophils # (Auto) 0.6 H 0.0-0.3 10^3/uL Basophils # (Auto) 0.0 0.0-0.1 10^3/uL Sodium Level 138 135-145 MMOL/L Potassium Level 4.1 3.6-5.0 MMOL/L Chloride Level 104 98-107 MMOL/L Carbon Dioxide Level 24 21-32 MMOL/L Anion Gap 10 5-14 MMOL/L Blood Urea Nitrogen 14 7-18 MG/DL Creatinine 0.71 0.60-1.30 MG/DL Estimat Glomerular Filtration Rate > 60 BUN/Creatinine Ratio 20 Glucose Level 123 H 70-105 MG/DL Calcium Level 9.0 8.5-10.1 MG/DL Total Bilirubin 0.6 0.1-1.0 MG/DL Aspartate Amino Transf (AST/SGOT) 17 5-34 U/L Alanine Aminotransferase (ALT/SGPT) 21 0-55 U/L Alkaline Phosphatase 101 40-136 U/L Total Protein 7.6 6.4-8.2 GM/DL Albumin 3.6 3.2-4.5 GM/DL Lipase 11 8-78 U/L Urine Color YELLOW Urine Clarity CLEAR Urine pH 6 5-9 Urine Specific [place] 1.015 L 1.016-1.022 Urine Protein NEGATIVE NEGATIVE Urine Glucose (UA) NEGATIVE NEGATIVE Urine Ketones NEGATIVE NEGATIVE Urine Nitrite NEGATIVE NEGATIVE Urine Bilirubin NEGATIVE NEGATIVE Urine Urobilinogen NORMAL NORMAL MG/DL Urine Leukocyte Esterase 2+ H NEGATIVE Urine RBC (Auto) NEGATIVE NEGATIVE Urine RBC NONE /HPF Urine WBC 0-2 /HPF Urine Squamous Epithelial Cells 5-10 /HPF Urine Crystals NONE /LPF Urine Bacteria TRACE /HPF Urine Casts NONE /LPF Urine Mucus SMALL H /LPF Urine Culture Indicated NO My Orders Orders - JUAN ROTH MD Cbc With Automated Diff (03/26/17 02:14) Comprehensive Metabolic Panel (03/26/17 02:14) Chest Pa/Lat (2 View) (03/26/17 02:14) Saline Lock/Iv-Start (03/26/17 02:14) Ns Iv 1000 Ml (Sodium Chloride 0.9%) (03/26/17 02:14) Ondansetron Injection (Zofran Injectio (03/26/17 02:15) Ketorolac Injection (Toradol Injection) (03/26/17 02:15) Albuterol/Ipra Inhalation Soln (Duoneb I (03/26/17 02:15) Svn Sm Volume Nebulizer Rt-Rfs (03/26/17 02:14) Ondansetron Injection (Zofran Injectio (03/26/17 03:30) Clindamycin Injection (Cleocin Injection (03/26/17 04:15) Promethazine Injection (Phenergan Injec (03/26/17 04:15) Ketorolac Injection (Toradol Injection) (03/26/17 04:15) Wound Culture (03/26/17 04:09) Wound Culture (03/26/17 04:09) Lipase (03/26/17 04:17) Ua Culture If Indicated (03/26/17 04:17) Albuterol/Ipra Inhalation Soln (Duoneb I (03/26/17 04:30) Svn Sm Volume Nebulizer Rt-Rfs (03/26/17 04:17) Medications Given in ED Current Medications Medications Dose Ordered Sig/Rosina Route Start Time Stop Time Status Last Admin Dose Admin Albuterol/ Ipratropium 3 ml ONCE ONCE INH 03/26/17 02:15 03/26/17 02:19 DC 03/26/17 02:40 3 ML Albuterol/ Ipratropium 3 ml ONCE ONCE INH 03/26/17 04:30 03/26/17 04:31 DC 03/26/17 04:33 3 ML Clindamycin Phosphate 900 mg/ Sodium Chloride 56 ml @ 100 mls/hr ONCE ONCE IV 03/26/17 04:15 03/26/17 04:48 DC 03/26/17 04:17 100 MLS/HR Ketorolac Tromethamine 30 mg ONCE ONCE IVP 03/26/17 02:15 03/26/17 02:19 DC 03/26/17 02:48 30 MG Ondansetron HCl 4 mg ONCE ONCE IVP 03/26/17 02:15 03/26/17 02:19 DC 03/26/17 02:47 4 MG Ondansetron HCl 4 mg ONCE ONCE IVP 03/26/17 03:30 03/26/17 03:32 DC 03/26/17 03:28 4 MG Promethazine HCl 25 mg ONCE ONCE IVP 03/26/17 04:15 03/26/17 04:17 DC 03/26/17 04:16 25 MG Sodium Chloride 1,000 ml @ 0 mls/hr Q0M ONCE IV 03/26/17 02:14 03/26/17 02:18 DC 03/26/17 02:47 1,000 MLS/HR Vital Signs/I&O Vital Sign - Last 12Hours 03/26/17 03/26/17 03/26/17 03/26/17 01:59 02:40 04:33 05:42 Temp 98.4 Pulse 94 87 Resp 18 20 B/P (MAP) 140/83 Pulse Ox 99 96 O2 Delivery Room Air Room Air Room Air Room Air Blood Pressure Mean: 102 Progress Note : Progress Note Patient was treated with Toradol and Zofran. She had refractory nausea and vomiting. A second dose of Zofran was administered. She still had nausea after that. Phenergan was then ordered. Cultures of the leg wounds were collected. Clindamycin was ordered for initial treatment. Abdominal pain is mild and generalized. There are no focal areas of tenderness. Imaging was not felt necessary. Patient states the abdominal discomfort started after the vomiting and she believes it is related to sore musculature. Chest x-ray was reviewed and showed no pathology. Patient received a liter of IV fluids. DuoNeb was given for wheezing. Rebound wheezing was heard and a second DuoNeb treatment was ordered. Diagnostic Imaging Diagonstic Imaging: Xray Plain Films/CT/US/NM/MRI: chest Comments Chest x-ray viewed by me. Report not yet available. No acute abnormalities were appreciated. Departure Impression Impression: Primary Impression: Nausea vomiting and diarrhea Additional Impressions: Acute bronchitis Qualified Codes: J20.9 - Acute bronchitis, unspecified Generalized abdominal pain Bilateral cellulitis of lower leg Nick disease Disposition: HOME, SELF-CARE Condition: Unchanged Departure-Patient Inst. Decision time for Depature: 04:54 Referrals: LONDON MAXWELL DO (PCP) Primary Care Physician OCTAVIO RANDALL (Family) Primary Care Physician Patient Instructions: Cellulitis (Skin Infection), Adult (DC) Add. Discharge Instructions: Use Zofran (ondansetron) as prescribed for nausea and vomiting. Use Phenergan ( promethazine) as a backup nausea medication. Complete your antibiotics as prescribed. Use your nebulizer treatments at home up to every 4 hours as needed for wheezing or uncontrolled cough. Follow-up with your primary care provider soon as possible. Use an antacid medication such as Pepcid or omeprazole twice daily until abdominal pain and chest discomfort resolved. Use Tylenol (acetaminophen) up to 1000 mg every 6 hours as needed for discomfort. All discharge instructions reviewed with patient and/or family. Voiced understanding. Scripts Promethazine HCl (Promethazine Tablet) 25 Mg Tablet 25 MG PO Q6H Y for NAUSEA/VOMITING, #10 TAB Prov: JUAN ROTH MD 03/26/17 Ondansetron (Zofran Odt) 4 Mg Tab.rapdis 4 MG SL Q4H Y for NAUSEA/VOMITING-1ST LINE, #10 TAB Prov: JUAN ROTH MD 03/26/17 Mupirocin (Centany) 30 Gm Oint...g. 30 GM TP BID, #1 TUBE 1 Refill Prov: JUAN ROTH MD 03/26/17 Sulfamethoxazole/Trimethoprim (Bactrim Ds Tablet) 1 Each Tablet 1 EACH PO BID, #20 TAB Prov: JUAN ROHT MD 03/26/17 JUAN ROTH MD Mar 26, 2017 04:49
[2017-03-26] MEDS ORDERED: SULF1TAB35 PO (05:38)
[2017-03-26] MEDS ORDERED: ONDA4TAB8 SL (05:38)
[2017-03-26] MEDS ORDERED: PROM25TA14 PO (05:38)
[2017-03-26] MEDS ORDERED: MUPI30OI TP (05:38)
[2017-03-26 05:42] VITALS: BP 138/78
--- NOTE | 2017-03-26 06:40 | Diagnostic Imaging Report ---
Clinical indication: Patient with nausea and vomiting today. Patient has chest pain and shortness of breath. Exam: Chest x-ray PA and lateral views. Comparisons: Chest x-ray dated 02/08/2017. Findings: Lungs/pleura: Lungs are clear. There is no pneumothorax. There is no pleural effusion. Mediastinum: Unremarkable. Pulmonary vasculature: Unremarkable. Heart: Unremarkable. Bones/extrathoracic soft tissue: Unremarkable. Impression: There is no radiographic evidence of acute cardiopulmonary process. Dictated by: Dictated on workstation # [id number]
== END 2017-03-26 05:42 | disposition home or self-care (01) ==
LOC: EDUNIT# 01:48 → ER 01:54
DX: L03.115 Cellulitis of right lower limb (principal); L03.116 Cellulitis of left lower limb; J20.9 Acute bronchitis, unspecified; Q82.8 Other specified congenital malformations of skin; R10.84 Generalized abdominal pain; R11.2 Nausea with vomiting, unspecified; R19.7 Diarrhea, unspecified; I10 Essential (primary) hypertension; K21.9 Gastro-esophageal reflux disease without esophagitis; M19.90 Unspecified osteoarthritis, unspecified site; E11.9 Type 2 diabetes mellitus without complications; F90.9 Attention-deficit hyperactivity disorder, unspecified type; F31.9 Bipolar disorder, unspecified; F41.9 Anxiety disorder, unspecified; F20.9 Schizophrenia, unspecified; Z91.5 Personal history of self-harm
CPT/HCPCS: 36415; 71020; 80053; 81000; 83690; 85025; 87070; 87077; 87186; 87205; 96361; 96365; 96375; 96376

== ENCOUNTER 2017-04-13 21:26 | Inpatient (IN) | payer MEDICARE ==
[~2017-04-13] VITALS: Ht 157.5 cm; Wt 161.6 kg
[~2017-04-13 21:26] MED LIST changes: +MUPI30OI TP; +ONDA4TAB8 SL; +PROM25TA14 PO
[2017-04-13] MEDS ORDERED: KETOROLAC 30 MG/ML VIAL IVP ONE (21:45)
[2017-04-13 22:19] LABS: BASOPHILS % (AUTO) 0 % (0-10); EOSINOPHILS # (AUTO) 0.2 10^3/uL (0.0-0.3); EOSINOPHILS % (AUTO) 2 % (0-10); LYMPHOCYTES # (AUTO) 2.4 X 10^3 (1.0-4.0); LYMPHOCYTES % (AUTO) 16 % (12-44); MEAN CORPUSCULAR HEMOGLOBIN 25 PG (25-34); MEAN CORPUSCULAR HGB CONC 31 G/DL (32-36); MEAN CORPUSCULAR VOLUME 80 FL (80-99); MEAN PLATELET VOLUME 9.3 FL (7.4-10.4); MONOCYTES # (AUTO) 0.6 X 10^3 (0.0-1.0); MONOCYTES % (AUTO) 4 % (0-12); NEUTROPHILS # (AUTO) 11.8 X 10^3 (1.8-7.8); NEUTROPHILS % (AUTO) 78 % (42-75); PLATELET COUNT 329 10^3/uL (130-400); RED BLOOD COUNT 4.76 10^6/uL (4.35-5.85); RED CELL DISTRIBUTION WIDTH 15.1 % (10.0-14.5); WHITE BLOOD COUNT 15.1 10^3/uL (4.3-11.0)
[2017-04-13] MEDS ORDERED: VANCOMYCIN INJECTION 1,000 MG in NS (IVPB) 250 ML IV ONE (22:30)
[2017-04-13] MEDS ORDERED: PIPERACILLIN SODIUM/TAZOBACTAM 4.5 GM in NS (IVPB) 100 ML IV ONE (22:30)
[2017-04-13] MEDS ORDERED: CIPROFLOXACIN IV 400MG/200ML 200 ML IV ONE (22:30)
[2017-04-13 22:36] LABS: CALCIUM 8.6 MG/DL (8.5-10.1); CREATININE SERUM 1.14 MG/DL (0.60-1.30); POTASSIUM 3.6 MMOL/L (3.6-5.0); hs C REACTIVE PROTEIN 1.43 MG/DL (0.00-0.50)
[2017-04-13] MEDS ORDERED: fentaNYL INJECTION 100 MCG/2 ML AMP IVP ONE (23:00)
[2017-04-13] MEDS ORDERED: oxyCODONE/APAP 5/325MG (PERCOCET 5) TABLET PO ONE (23:00)
--- NOTE | 2017-04-13 23:02 | ED General ---
General Chief Complaint: Skin/Wound Problems Stated Complaint: L LEG POSS INFECTED Nursing Triage Note: PT AMBULATED TO ROOM. PT STATES SHE GOT SUNBURNED APPROX March AND HER LEFT LOWER LEG IS NOW INFECTED AND CHANGE IN SKIN ISSUES. PT STATES SHE HAS BEEN GIVEN DIFFERENT DOSES OF ANTIBIOTICS AND NONE HAVE BEEN HELPING AT ALL. PT STATES THE PAIN COMES AND GOES. 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 She has been treated for cellulitis for more than 2 weeks. She was first seen by this provider in the ER on March 26 and started on antibiotics. Cultures were obtained at that time and grew MRSA and Pseudomonas. Cultures have been reviewed. Patient completed 2 rounds of Bactrim and is now on doxycycline. According to her filling record, she appears to also be using terbinafine and clobetasol creams. Symptoms have worsened despite treatment. Her erythema, pain, and weeping sores have expanded significantly. She is afebrile. She is noted to be tachycardic on initial assessment with heart rate in the 90s. She is pursuing follow-up with a cementer machine as an outpatient. Allergies and Home Medications Allergies Coded Allergies: NKANo Known Allergies (Verified Allergy, Mild, 02/08/17) Home Medications Albuterol Sulfate 8.5 Gm Hfa.aer.ad, 8.5 GM IH Q4H PRN for WHEEZING, #1 Prescribed by: SIMBA PATEL on 09/19/15 1206 Clobetasol Propionate 15 Gm Oint...g., 15 GM TP BID, #1 Ref 0 Prescribed by: KEV SHELL on 02/08/17 1403 Furosemide 20 Mg Tablet, 20 MG PO DAILY, (Reported) Ibuprofen 200 Mg Tablet, 800 MG PO TID PRN for PAIN, (Reported) TAKES 4 (200MG) TABLETS Ipratropium/Albuterol Sulfate 3 Ml Ampul.neb, 3 ML IH Q4H PRN for SHORTNESS OF BREATH, #25 Prescribed by: DELANEY GARZA on 09/22/152015 Lurasidone HCl 60 Mg Tablet, 60 MG PO HS, (Reported) Mupirocin 22 Gm Tube, 1 APPLIC TP BID PRN for ITCHING AND RASH, (Reported) APPLY TO LEFT LOWER EXTREMITY SPARINGLY TO AFFECTED AREA(S) Mupirocin 30 Gm Oint...g., 30 GM TP BID, #1 Ref 1 Prescribed by: JUAN FARRAR on 03/26/17 0538 Mupirocin Calcium 15 Gm Cream..g., 15 GM TP BID for 7 Days, #1 Ref 0 Prescribed by: KEV SHELL on 02/08/17 1403 Ondansetron 4 Mg Tab.rapdis, 4 MG SL Q4H PRN for NAUSEA/VOMITING-1ST LINE, #10 Prescribed by: JUAN FARRAR on 03/26/17 0538 Promethazine HCl 25 Mg Tablet, 25 MG PO Q6H PRN for NAUSEA/VOMITING, #10 Prescribed by: JUAN FARRAR on 03/26/17 0538 Sulfamethoxazole/Trimethoprim 1 Each Tablet, 1 EACH PO BID, #20 Prescribed by: JUAN FARRAR on 03/26/17 0538 Terbinafine HCl 15 Gm Cream..g., TP BID PRN for LEG SORES, (Reported) Constitutional: no symptoms reported EENTM: no symptoms reported Respiratory: no symptoms reported Cardiovascular: see HPI Gastrointestinal: no symptoms reported Genitourinary: no symptoms reported : No Musculoskeletal: no symptoms reported Skin: see HPI Psychiatric/Neurological: No Symptoms Reported Hematologic/Lymphatic: No Symptoms Reported Immunological/Allergic: no symptoms reported Past Vrcnmqx-Nsipyi-Wqcmys Hx Patient Social History Alcohol Use: Denies Use Recreational Drug Use: No Smoking Status: Never a Smoker 2nd Hand Smoke Exposure: No Recent Foreign Travel: No Contact w/Someone Who Travel: No Recent Infectious Disease Expo: No Recent Hopitalizations: No Immunizations Up To Date Tetanus Booster (TDap): Less than 5yrs PED Vaccines UTD: No Date of Pneumonia Vaccine: Jun 15, 2011 Date of Influenza Vaccine: Sep 16, 2015 Seasonal Allergies Seasonal Allergies: No Surgeries HX Surgeries: Yes (EGD, L MASTOIDECTOMY, R MYRINGOTOMY TUBE, BTL REVERSAL) Surgeries: Appendectomy, Ear Surgery, Gallbladder, Tubal Ligation Respiratory Hx Respiratory Disorders: Yes Respiratory Disorders: Pneumonia, Sleep Apnea Cardiovascular Hx Cardiac Disorders: Yes (-INDUCED HTN) Cardiac Disorders: Hypertension Neurological Hx Neurological Disorders: No 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 System Hx 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 Disorders: No Sexually Transmitted Disease: No HIV/AIDS: No Female 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 Disorders: 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 Genitourinary Hx Genitourinary Disorders: Yes Genitourinary Disorders: Kidney Stones, UTI-Chronic Gastrointestinal Hx Gastrointestinal Disorders: Yes Gastrointestinal Disorders: Gastroesophageal Reflux Musculoskeletal Hx Musculoskeletal Disorders: Yes (CHRONIC GENERALIZED PAIN ) Musculoskeletal Disorders: Degenerate Disk Disease, Arthritis, Fibromyalgia, Chronic Back Pain Endocrine Hx Endocrine Disorders: No Endocrine Disorders: Diabetes, Non-Insulin dep HEENT HX ENT Disorders: Yes (MASTOIDITIS) HEENT Disorders: Chronic Ear Infection Loss of Vision: Denies Hearing Impairment: Hard of Hearing Cancer Hx Cancer: No Psychosocial Hx Psychiatric Problems: Yes (PSYCHOSIS, SOCIAL ANXIETY DISORDER) Behavioral Health Disorders: ADD/ADHD, Anxiety, Suicide Attempts, Bipolar, Personality Disorder, Schizophrenia, Depression Integumentary HX Skin/Integumentary Disorder: Yes (DARIER'S DISEASE. CHRONIC LEG CELLULITIS-- MRSA) Skin/Integumentary Disorders: Recent Skin Changes Blood Transfusions Hx Blood Disorders: No Adverse Reaction to a Blood Tr: No Family Medical History Significant Family History: No Pertinent Family Hx Family Medial History: Cancer Chest pain 03 FATHER, Onset:Unknown UNCLE, Onset:Unknown Congestive heart failure Family history: Allergy 09 BROTHER, Onset:Unknown Family history: Arthritis 03 FATHER, Onset:Unknown 03 MOTHER, Onset:Unknown Family history: Asthma 03 FATHER, Onset:Unknown UNCLE, Onset:Unknown Family history: Diabetes mellitus Family history: Thyroid disorder 09 SISTER, Onset:Unknown Headache 03 MOTHER, Onset:Unknown Heart disease Hereditary disease 03 FATHER, Onset:Unknown 09 BROTHER, Onset:Unknown UNCLE, Onset:Unknown History of - respiratory disease 03 FATHER, Onset:Unknown UNCLE, Onset:Unknown Myocardial infarction Psychotic disorder 09 BROTHER, Onset:Unknown No Family History of: Abdominal aortic aneurysm Antoni's disease Alcoholism Aphasia Cancer of colon Cataract Congenital heart disease Cystic fibrosis Dementia Dysphagia Family history: Alzheimer's disease Family history: Breast disease Family history: Cardiovascular disease Family history: Coronary thrombosis Family history: Gastrointestinal disease Family history: Glaucoma Family history: Hypertension Family history: Osteoporosis Hearing loss History of - anemia History of drug abuse Human immunodeficiency virus (HIV) seropositivity Hypercholesterolemia Infertile Kidney disease Malignant neoplasm of lung Parkinson's disease Prostate cancer Seizure disorder Stroke Tuberculosis Visual impairment Physical Exam Vital Signs Vital Sign - Last 12Hours 04/13/17 21:32 Temp 97.5 Pulse 96 Resp 18 B/P (MAP) 162/68 Pulse Ox 99 O2 Delivery Room Air Capillary Refill : Less Than 3 Seconds General Appearance: No Apparent Distress, WD/WN, Obese HEENT: PERRL/EOMI, Normal ENT Inspection Respiratory: Lungs Clear, Normal Breath Sounds, No Accessory Muscle Use, No Respiratory Distress Cardiovascular: No Edema, No Murmur, Tachycardia Gastrointestinal: Normal Bowel Sounds, No Organomegaly, Soft Extremity: Other (plaquing, weeping sores, tenderness and erythema of the anterior lower extremities bilaterally, left greater than right) Neurologic/Psychiatric: Alert, Oriented x3, No Motor/Sensory Deficits, Normal 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, 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 Skin: Erythema, Rash (see above) Focused Exam Lactic Acid Level Laboratory Tests Test 04/13/17 22:11 Lactic Acid Level 1.49 MMOL/L (0.50-2.00) Progress/Results/Core Measures Results/Orders Lab Results Laboratory Tests Test 04/13/17 22:11 Range/Units White Blood Count 15.1 H 4.3-11.0 10^3/uL Red Blood Count 4.76 4.35-5.85 10^6/uL Hemoglobin 11.9 11.5-16.0 G/DL Hematocrit 38 35-52 % Mean Corpuscular Volume 80 80-99 FL Mean Corpuscular Hemoglobin 25 25-34 PG Mean Corpuscular Hemoglobin Concent 31 L 32-36 G/DL Red Cell Distribution Width 15.1 H 10.0-14.5 % Platelet Count 329 130-400 10^3/uL Mean Platelet Volume 9.3 7.4-10.4 FL Neutrophils (%) (Auto) 78 H 42-75 % Lymphocytes (%) (Auto) 16 12-44 % Monocytes (%) (Auto) 4 0-12 % Eosinophils (%) (Auto) 2 0-10 % Basophils (%) (Auto) 0 0-10 % Neutrophils # (Auto) 11.8 H 1.8-7.8 X 10^3 Lymphocytes # (Auto) 2.4 1.0-4.0 X 10^3 Monocytes # (Auto) 0.6 0.0-1.0 X 10^3 Eosinophils # (Auto) 0.2 0.0-0.3 10^3/uL Basophils # (Auto) 0.0 0.0-0.1 10^3/uL Sodium Level 140 135-145 MMOL/L Potassium Level 3.6 3.6-5.0 MMOL/L Chloride Level 105 98-107 MMOL/L Carbon Dioxide Level 25 21-32 MMOL/L Anion Gap 10 5-14 MMOL/L Blood Urea Nitrogen 14 7-18 MG/DL Creatinine 1.14 0.60-1.30 MG/DL Estimat Glomerular Filtration Rate 54 BUN/Creatinine Ratio 12 Glucose Level 110 H 70-105 MG/DL Lactic Acid Level 1.49 0.50-2.00 MMOL/L Calcium Level 8.6 8.5-10.1 MG/DL C-Reactive Protein High Sensitivity 1.43 H 0.00-0.50 MG/DL My Orders Orders - JUAN ROTH MD Basic Metabolic Panel (04/13/17 21:43) Cbc With Automated Diff (04/13/17 21:43) Hs C Reactive Protein (04/13/17 21:43) Lactic Acid Analyzer (04/13/17 21:43) Saline Lock/Iv-Start (04/13/17 21:43) Ketorolac Injection (Toradol Injection) (04/13/17 21:45) Blood Culture (04/13/17 22:26) Piperacillin Sodium/Tazobactam (Zosyn Vi (04/13/17 22:30) Vancomycin Injection (Vancomycin Injecti (04/13/17 22:30) Ciprofloxacin Iv 400mg/200ml (Cipro Iv S (04/13/17 22:30) Fentanyl Injection (Sublimaze Injection (04/13/17 23:00) Oxycodone/Apap 5/325mg Tablet (Percocet (04/13/17 23:00) Medications Given in ED Current Medications Medications Dose Ordered Sig/Rosina Route Start Time Stop Time Status Last Admin Dose Admin Ciprofloxacin/ Dextrose 200 ml @ 200 mls/hr ONCE ONCE IV 04/13/17 22:30 04/13/17 23:29 DC 04/13/17 22:45 200 MLS/HR Ketorolac Tromethamine 30 mg ONCE ONCE IVP 04/13/17 21:45 04/13/17 21:46 DC 04/13/17 21:57 30 MG Vancomycin HCl 1000 mg/Sodium Chloride 250 ml @ 250 mls/hr ONCE ONCE IV 04/13/17 22:30 04/13/17 23:29 DC 04/13/17 23:00 250 MLS/HR Vital Signs/I&O Vital Sign - Last 12Hours 04/13/17 21:32 Temp 97.5 Pulse 96 Resp 18 B/P (MAP) 162/68 Pulse Ox 99 O2 Delivery Room Air Blood Pressure Mean: 99 Progress Note #1: Time: 22:25 Progress Note Labs reviewed. Patient has a leukocytosis of 15,000. Sepsis is now suspected as she meets search criteria with tachycardia and leukocytosis. Blood cultures have been ordered. Initial IV antibiotic therapy will be started with Cipro and vancomycin. Patient will be admitted as she has failed outpatient therapy and now meets sepsis criteria. Progress Note #2: Time: 23:01 Progress Note Toradol was insufficient for management of her pain. Fentanyl and Percocet will be added. Departure Communication Time/Spoke to Admitting Phy: 22:[address] Camejo Impression Impression: Primary Impression: Sepsis Qualified Codes: A41.02 - Sepsis due to methicillin resistant Staphylococcus aureus Additional Impressions: Cellulitis Qualified Codes: L03.119 - Cellulitis of unspecified part of limb Darier disease Sepsis due to Pseudomonas Disposition: ADMITTED INPATIENT Condition: Improved Decision to Admit Reason: Admit from ER (General) Decision to Admit/Date: Apr 13, 2017 Time/Decision to Admit Time: 22:25 Departure-Patient Inst. Referrals: LONDON MAXWELL DO (PCP) Primary Care Physician OCTAVIO RANDALL (Family) Primary Care Physician JUAN ROTH MD Apr 13, 2017 23:02
[2017-04-14] VITALS (9 sets, daily range): BP systolic 116–175; BP diastolic 68–88
[2017-04-14] MEDS ORDERED: VANCOMYCIN INJECTION 1,000 MG in NS (IVPB) 250 ML IV ONE (00:45)
[2017-04-14] MEDS ORDERED: VANCOMYCIN 2000 MG/NS 500 ML IVPB IV ONE ×2 (00:45)
[2017-04-14] MEDS: NS IV 1000 ML 1,000 ML IV SCH ×3 (01:30→20:30)
[2017-04-14] MEDS: oxyCODONE/APAP 5/325MG (PERCOCET 5) TABLET PO PRN ×4 (03:16→18:01)
[2017-04-14 07:16] LABS: RED BLOOD COUNT 4.83 10^6/uL (4.35-5.85); RED CELL DISTRIBUTION WIDTH 15.2 % (10.0-14.5); WHITE BLOOD COUNT 12.6 10^3/uL (4.3-11.0)
[2017-04-14] MEDS: KETOROLAC 30 MG/ML VIAL IV PRN ×2 (08:21→19:35)
[2017-04-14] MEDS ORDERED: PROM25TA14 PO (09:02)
[2017-04-14] MEDS ORDERED: DOXY100C2 PO (09:02)
[2017-04-14] MEDS ORDERED: CLOB15OI2 TOP (09:02)
[2017-04-14] MEDS ORDERED: ONDA4TAB8 PO (09:02)
[2017-04-14] MEDS ORDERED: MUPI30OI TP (09:02)
[2017-04-14] MEDS ORDERED: RT-ALBUINH IH (09:09)
[2017-04-14] MEDS ORDERED: LOPE-134 PO (09:09)
[2017-04-14] MEDS ORDERED: ALBU2.5V4 NEB (09:09)
[2017-04-14] MEDS ORDERED: L.AC1CAP6 PO (09:09)
[2017-04-14] MEDS ORDERED: POTA10TA36 PO (09:18)
[2017-04-14] MEDS: VANCOMYCIN 1500 MG/NS 500 ML IVPB IV SCH ×4 (10:58→22:19)
--- NOTE | 2017-04-14 12:59 | History & Physicial ([facility]) ---
HPI History of Present Illness: 36 yo female with history of Darier disease presented to ER after a couple of weeks of problems with infection in her left leg. She notes that she was doing very well with her skin disease until she stayed out in the sun too long and got a sunburn. She was using a mild Dove liquid soap with a loofah (rinsed each time and replaced monthly), using a lotion that she does not recall name of but which was working very well until this incident and for a while in the past was soaking in a bath with what is likely Hibiclens about once per week. Around March 26, she had increasing redness and pain in her left montiel and was seen at clinic and given 10 days of Bactrim, which helped but when it ended the pain and redness flared back up so she went to walk-in care on Friday (day before admission) and was started on doxycyline, which she took 3 doses of before coming in to the ER due to worsening pain, swelling and redness. She has not noted fever at home, but has been taking ibuprofen very frequently. Date seen by provider: Apr 14, 2017 Time Seen by Provider: 09:30 Attending Physician Franky Camejo MD PCP Rhiannon Trujillo DO Consult Date of Admission Apr 13, 2017 at 22:56 Home Medications Home Medications Reviewed patient Home Medication Reconciliation Form Allergies Coded Allergies: NKANo Known Allergies (Verified Allergy, Mild, 02/08/17) ABR-Wnwkcw-Fuuzln Hx Patient Social History Alcohol Use: Rarely Uses Recreational Drug Use: No Smoking Status: Never a Smoker 2nd Hand Smoke Exposure: No Recent Foreign Travel: No Contact w/other who traveled: No Recent Hopitalizations: No Recent Infectious Disease Expo: No Physical Abuse Screen: No Sexual Abuse: No Immunizations Up To Date Tetanus Booster (TDap): Less than 5yrs Date of Pneumonia Vaccine: Jun 15, 2011 Date of Influenza Vaccine: Sep 16, 2015 Past Medical History PMHx: Bioplar Disorder Darier's Disease hx of Hypertension Chronic low back pain Morbid Obesity hx of kidney stones HELEN - c-pap (does not use regularly) PSH: cholecystectomy appendectomy tubal ligation EGD left mastoidectomy right ear tubes Family Medical History Significant Family History: Other Conditions/Hx (Uncle with Darier disease) Review of Systems ([facility]) Constitutional: No fever EENTM: no symptoms reported Respiratory: no symptoms reported Cardiovascular: no symptoms reported Gastrointestinal: No nausea, No vomiting Genitourinary: no symptoms reported Musculoskeletal: back pain Skin: see HPI Psychiatric/Neurological: No Symptoms Reported Reviewed Test Results Reviewed Test Results Lab Laboratory Tests Test 04/13/17 22:11 04/14/17 07:10 Range/Units White Blood Count 15.1 H 12.6 H 4.3-11.0 10^3/uL Red Blood Count 4.76 4.83 4.35-5.85 10^6/uL Hemoglobin 11.9 12.0 11.5-16.0 G/DL Hematocrit 38 39 35-52 % Mean Corpuscular Volume 80 80 80-99 FL Mean Corpuscular Hemoglobin 25 25 25-34 PG Mean Corpuscular Hemoglobin Concent 31 L 31 L 32-36 G/DL Red Cell Distribution Width 15.1 H 15.2 H 10.0-14.5 % Platelet Count 329 332 130-400 10^3/uL Mean Platelet Volume 9.3 9.0 7.4-10.4 FL Neutrophils (%) (Auto) 78 H 42-75 % Lymphocytes (%) (Auto) 16 12-44 % Monocytes (%) (Auto) 4 0-12 % Eosinophils (%) (Auto) 2 0-10 % Basophils (%) (Auto) 0 0-10 % Neutrophils # (Auto) 11.8 H 1.8-7.8 X 10^3 Lymphocytes # (Auto) 2.4 1.0-4.0 X 10^3 Monocytes # (Auto) 0.6 0.0-1.0 X 10^3 Eosinophils # (Auto) 0.2 0.0-0.3 10^3/uL Basophils # (Auto) 0.0 0.0-0.1 10^3/uL Sodium Level 140 135-145 MMOL/L Potassium Level 3.6 3.6-5.0 MMOL/L Chloride Level 105 98-107 MMOL/L Carbon Dioxide Level 25 21-32 MMOL/L Anion Gap 10 5-14 MMOL/L Blood Urea Nitrogen 14 7-18 MG/DL Creatinine 1.14 0.60-1.30 MG/DL Estimat Glomerular Filtration Rate 54 BUN/Creatinine Ratio 12 Glucose Level 110 H 70-105 MG/DL Lactic Acid Level 1.49 0.50-2.00 MMOL/L Calcium Level 8.6 8.5-10.1 MG/DL C-Reactive Protein High Sensitivity 1.43 H 0.00-0.50 MG/DL Physical Exam-([facility]) Physical Exam Vital Signs VS - Last 72 Hours, by Label 04/13/17 04/13/17 04/13/17 04/14/17 21:32 23:35 23:45 00:00 Temp 97.5 98.9 97.6 Pulse 96 99 92 Resp 18 18 20 B/P (MAP) 162/68 141/88 Pulse Ox 99 97 98 98 O2 Delivery Room Air Room Air Room Air 04/14/17 04/14/17 04/14/17 04/14/17 01:00 02:00 03:00 04:00 Temp 97.3 99.1 99.1 Pulse 82 85 85 83 Resp 18 20 20 18 B/P (MAP) 134/81 125/81 132/84 116/79 Pulse Ox 98 97 95 O2 Delivery Room Air Room Air Room Air Room Air 04/14/17 08:00 Temp 99.9 Pulse 70 Resp 20 B/P (MAP) 175/68 Pulse Ox 95 O2 Delivery Room Air Capillary Refill : Less Than 3 Seconds General Appearance: no apparent distress, obese Respiratory: lungs clear, normal breath sounds Cardiovascular: regular rate, rhythm, no murmur Gastrointestinal: normal bowel sounds, non tender, soft Skin: other (diffuse plaques of thickened, flaking ketatotic barry skin; left montiel with large area of erythema with a few ulcerated/open lesions with serous drainage. Right montiel with small area of erythema.) Assessment/Plan Assessment/Plan Admission Dx Sepsis Cellulitis Darier disease Plan Sepsis- leukocytosis and tachycardia on admission with cellulitis -No evidence of severe sepsis -IV vancomycin and ciprofloxacin started in ER with improvement in leukocytosis this am and tachycardia resolved Cellulitis- not clearly improved, but improving leukocytosis and vital signs, will continue IV antibiotics today and anticipate likely change to oral tomorrow Darier disease- having trouble seeing Dermatology due to needing a provider accepting [place] Medicaid, will plan for referral to telehealth Derm outpatient -Continue current lotion (unclear what type, but was recommended by Derm for her uncle with same disease and was working well for her) when outpatient -Avoid sun exposure or getting very warm which can exacerbate Darier disease DVT ppx- enoxaparin Diagnosis/Problems: Clinical Quality Measures DVT/VTE Risk/Contraindication: Risk Factor Score Per Nursin RFS Level Per Nursing on Admit: 4+=Very High Copy Copies To 1: ENOCH Wing BETHANY N MD Apr 14, 2017 12:59
[2017-04-14] MEDS ORDERED: ENOXAPARIN 40 MG/0.4 ML (LOVENOX) SYR SC SCH (13:15)
[2017-04-14] MEDS: CIPROFLOXACIN 400 MG/D5W 200 ML (PRE-MIX) IV SCH (14:06)
[2017-04-15 00:10] VITALS: BP 126/69
[2017-04-15] MEDS: CIPROFLOXACIN 400 MG/D5W 200 ML (PRE-MIX) IV SCH (00:40)
[2017-04-15] MEDS: oxyCODONE/APAP 5/325MG (PERCOCET 5) TABLET PO PRN ×2 (01:16→08:56)
[2017-04-15 03:55] VITALS: BP 111/58
[2017-04-15 06:20] LABS: MEAN PLATELET VOLUME 9.2 FL (7.4-10.4); RED BLOOD COUNT 4.41 10^6/uL (4.35-5.85); RED CELL DISTRIBUTION WIDTH 15.1 % (10.0-14.5); WHITE BLOOD COUNT 10.5 10^3/uL (4.3-11.0)
[2017-04-15] MEDS: NS IV 1000 ML 1,000 ML IV SCH (06:49)
[2017-04-15 08:00] VITALS: BP 132/60
[2017-04-15] MEDS: KETOROLAC 30 MG/ML VIAL IV PRN (08:56)
[2017-04-15] MEDS ORDERED: CIPR-225 PO (09:55)
--- NOTE | 2017-04-15 09:57 | Discharge Instructions ---
Discharge [facility] Discharge Medications New, Converted or Re-Newed RX: Transmitted to Pharmacy New Medications: Ciprofloxacin HCl (Cipro) 500 Mg Tablet 500 MG PO BID, #20 TAB 0 Refills Continued Medications: Albuterol Sulfate (Proair Hfa) 1 Puff Puff 2 PUFF IH Q4H PRN for SHORTNESS OF BREATH, PUFF 1 PUFF = 90 MCG Albuterol Sulfate (Albuterol Sulfate) 2.5 Mg/3 Ml Vial.neb 2.5 MG NEB Q4H PRN for SHORTNESS OF BREATH, EA Clobetasol Propionate (Clobetasol Propionate) 15 Gm Oint...g. TOP BID, EA Doxycycline Hyclate (Doxycycline Hyclate) 100 Mg Capsule 100 MG PO BID for 10 Days, CAP 10 DAY THERAPY FILLED 04-12-17 Ibuprofen (Advil) 200 Mg Tablet 800 MG PO TID PRN for PAIN, TAB TAKES 4 (200MG) TABLETS L.acidoph & Paracasei,B.lactis (Probiotic) 1 Each Capsule 1 CAP PO DAILY PRN for STOMACH UPSET, CAP Loperamide HCl (Imodium A-D) 2 Mg Tablet PO UD PRN for DIARRHEA, TAB Mupirocin (Centany) 30 Gm Oint...g. TP BID PRN for SORES, TUBE Ondansetron (Zofran Odt) 4 Mg Tab.rapdis 4 MG PO Q4H PRN for NAUSEA/VOMITING-1ST LINE, TAB Promethazine HCl (Promethazine Tablet) 25 Mg Tablet 25 MG PO Q6H PRN for NAUSEA/VOMITING-2ND LINE, TAB Terbinafine HCl (Terbinafine) 15 Gm Cream..g. TP BID, EA Patient Instructions Goal/Follow Up Appt: Follow up with Dr. Shah on 04/21 at 10 am. Patient Instructions: Do not take Zofran (ondansetron) while taking Cipro (ciprofloxacin) because they can interact. Resume your doxycycline and complete all of it along with the Cipro. Take a probiotic to help decrease the chance of diarrhea since you are on 2 strong antibiotics. Activity & Diet Discharge Diet: Regular Diet Activity as Tolerated: Yes Copy Copies To 1: ENOCH Wing BETHANY N MD Apr 15, 2017 9:57 am
[2017-04-15] MEDS ORDERED: TROUGH ORDER-PHARMACY XX NR (10:00)
[2017-04-15] MEDS ORDERED: HYDR-3812 PO (10:00)
--- NOTE | 2017-04-15 10:01 | Discharge Summary ---
Diagnosis/Chief Complaint Date of Admission Apr 13, 2017 at 10:56 pm Date of Discharge Apr 15, 2017 Admission Diagnosis Admission Diagnosis Sepsis Cellulitis Darier disease Discharge Diagnosis Sepsis- leukocytosis and tachycardia on admission with cellulitis -No evidence of severe sepsis -IV vancomycin and ciprofloxacin started in ER with improvement in leukocytosis D/C with ciprofloxacin to cover the pseudomonas and continue doxycycline previously prescribed for the MRSA Cellulitis- see above Darier disease- having trouble seeing Dermatology due to needing a provider accepting [place] Medicaid, will plan for referral to telehealth Derm outpatient -Continue current lotion (unclear what type, but was recommended by Derm for her uncle with same disease and was working well for her) when outpatient -Avoid sun exposure or getting very warm which can exacerbate Darier disease Chief Complaint/HPI Chief Complaint/HPI 36 yo female with history of Darier disease presented to ER after a couple of weeks of problems with infection in her left leg. She notes that she was doing very well with her skin disease until she stayed out in the sun too long and got a sunburn. She was using a mild Dove liquid soap with a loofah (rinsed each time and replaced monthly), using a lotion that she does not recall name of but which was working very well until this incident and for a while in the past was soaking in a bath with what is likely Hibiclens about once per week. Around March 26, she had increasing redness and pain in her left montiel and was seen at clinic and given 10 days of Bactrim, which helped but when it ended the pain and redness flared back up so she went to walk-in care on Friday (day before admission) and was started on doxycyline, which she took 3 doses of before coming in to the ER due to worsening pain, swelling and redness. She has not noted fever at home, but has been taking ibuprofen very frequently. Discharge Summary-Simple/Stand Consultations Discharge Physical Examination Allergies: Coded Allergies: NKANo Known Allergies (Verified Allergy, Mild, 02/08/17) Vitals & I&Os Vital Sign - Last 12Hours Date Time Temp Pulse Resp B/P (MAP) Pulse Ox O2 Delivery O2 Flow Rate FiO2 04/15/17 08:00 97.9 84 20 132/60 99 Room Air Intake and Output 04/15/17 00:00 Intake Total 3395 ml Output Total 570 ml Balance 2825 ml General Appearance: Alert Skin: Other (few ulcerated lesions on left montiel with serous drainage, markedly decreased almost resolved erythema and swelling) Hospital Course See final discharge diagnosis. Labs Laboratory Tests Test 04/13/17 22:11 04/14/17 07:10 04/15/17 06:05 04/15/17 09:58 Range/Units White Blood Count 15.1 H 12.6 H 10.5 4.3-11.0 10^3/uL Red Blood Count 4.76 4.83 4.41 4.35-5.85 10^6/uL Hemoglobin 11.9 12.0 10.9 L 11.5-16.0 G/DL Hematocrit 38 39 36 35-52 % Mean Corpuscular Volume 80 80 81 80-99 FL Mean Corpuscular Hemoglobin 25 25 25 25-34 PG Mean Corpuscular Hemoglobin Concent 31 L 31 L 31 L 32-36 G/DL Red Cell Distribution Width 15.1 H 15.2 H 15.1 H 10.0-14.5 % Platelet Count 329 332 298 130-400 10^3/uL Mean Platelet Volume 9.3 9.0 9.2 7.4-10.4 FL Neutrophils (%) (Auto) 78 H 42-75 % Lymphocytes (%) (Auto) 16 12-44 % Monocytes (%) (Auto) 4 0-12 % Eosinophils (%) (Auto) 2 0-10 % Basophils (%) (Auto) 0 0-10 % Neutrophils # (Auto) 11.8 H 1.8-7.8 X 10^3 Lymphocytes # (Auto) 2.4 1.0-4.0 X 10^3 Monocytes # (Auto) 0.6 0.0-1.0 X 10^3 Eosinophils # (Auto) 0.2 0.0-0.3 10^3/uL Basophils # (Auto) 0.0 0.0-0.1 10^3/uL Sodium Level 140 135-145 MMOL/L Potassium Level 3.6 3.6-5.0 MMOL/L Chloride Level 105 98-107 MMOL/L Carbon Dioxide Level 25 21-32 MMOL/L Anion Gap 10 5-14 MMOL/L Blood Urea Nitrogen 14 7-18 MG/DL Creatinine 1.14 0.60-1.30 MG/DL Estimat Glomerular Filtration Rate 54 BUN/Creatinine Ratio 12 Glucose Level 110 H 70-105 MG/DL Lactic Acid Level 1.49 0.50-2.00 MMOL/L Calcium Level 8.6 8.5-10.1 MG/DL C-Reactive Protein High Sensitivity 1.43 H 0.00-0.50 MG/DL Vancomycin Level Trough 11.3 10.0-20.0 UG/ML Discharge Instructions to patient/family Please see electonic discharge instructions given to patient. Discharge Medications Reviewed and agree with Discharge Medication list on patient's Discharge Instruction sheet Clinical Quality Measures DVT/VTE Risk/Contraindication: Risk Factor Score Per Nursin RFS Level Per Nursing on Admit: 4+=Very High Copy Copies To 1: MARIAN RICKETTS MD, BETHANY N MD Apr 15, 2017 10:01 am
[2017-04-15] MEDS ORDERED: VANCOMYCIN INJECTION 1,750 MG in NS IV 500 ML 500 ML IV SCH (11:00)
[2017-04-16] MEDS ORDERED: TROUGH ORDER-PHARMACY XX NR (10:00)
[2017-04-16] MEDS ORDERED: HYDR-3816 PO (22:51)
== END 2017-04-15 11:05 | disposition home or self-care (01) | DRG 872 ==
LOC: EDUNIT# 21:26 → ER 21:29 → 4TH 22:56
PROVIDERS: ADMIT Family Medicine; ATTEND Family Medicine
DX: A41.02 Sepsis due to Methicillin resistant Staphylococcus aureus (principal); A41.52 Sepsis due to Pseudomonas; L03.116 Cellulitis of left lower limb; L03.115 Cellulitis of right lower limb; Z68.44 Body mass index [BMI] 60.0-69.9, adult; Q82.8 Other specified congenital malformations of skin; I10 Essential (primary) hypertension; E11.9 Type 2 diabetes mellitus without complications; E66.01 Morbid (severe) obesity due to excess calories; G47.33 Obstructive sleep apnea (adult) (pediatric); K21.9 Gastro-esophageal reflux disease without esophagitis; M19.91 Primary osteoarthritis, unspecified site; M79.7 Fibromyalgia; M54.5 Low back pain; F31.9 Bipolar disorder, unspecified; F20.9 Schizophrenia, unspecified; F40.10 Social phobia, unspecified; F90.9 Attention-deficit hyperactivity disorder, unspecified type; F29 Unspecified psychosis not due to a substance or known physiological condition
CPT/HCPCS: 36415; 76937; 80048; 80202; 83605; 85025; 85027; 86141; 87040; 96365; 96367; 96368; 96375

== ENCOUNTER 2017-04-16 20:39 | Emergency (ER) | payer MEDICAID, MEDICARE ==
[~2017-04-16] VITALS: Ht 165.1 cm; Wt 161.5 kg
[~2017-04-16 20:39] MED LIST changes: +ALBU2.5V4 NEB; +CIPR-225 PO; +CLOB15OI2 TOP; +HYDR-3812 PO; +L.AC1CAP6 PO; +LOPE-134 PO; +ONDA4TAB8 PO; +POTA10TA36 PO
[2017-04-16] MEDS ORDERED: fentaNYL INJECTION 100 MCG/2 ML AMP IM STA ×2 (21:16→22:46)
--- NOTE | 2017-04-16 21:54 | ED Lower Extremity ---
General Chief Complaint: Lower Extremity Stated Complaint: LT SIDED LEG PAIN Nursing Triage Note: PT TO ED 6 W/ C/O LOWER LEG PAIN ONSET THIS AM, WORSE THROUGHOUT THE DAY. PT REPORTS SHE WAS DISCHARGED YESTERDAY FROM THIS FACILITY FOR SAME C/O. Nursing Sepsis Screen: No Definite Risk (SANDRA LEE) History of Present Illness Time seen by provider: 21:10 Initial Comments Patient reports with increased pain to the left lower extremity that started while preparing dinner approximately 1730 today. She continues to have weeping wounds from her left lower extremity with mild erythema noted. She took hydrocodone 5/325 one tablet at 1800 and ibuprofen 600 mg at 2000, with no resolution in her pain. She was discharged from the hospital yesterday and is taking her clindamycin and doxycycline as prescribed. She was admitted 04/13-, treated with vancomycin. She has a history of cellulitis and Darier's Syndrome. She is slightly tachycardic on presentation with pulse 102, and temperature 100.2. Onset: this evening Severity: severe (patient reports 06/24) Pain/Injury Location: left leg (mainly from the knee to her ankle.) Method of Injury: unknown Modifying Factors: Improves With Pain Medication, Improves With Rest (SANDRA LEE) Allergies and Home Medications Allergies Coded Allergies: NKANo Known Allergies (Verified Allergy, Mild, 02/08/17) Home Medications Albuterol Sulfate 1 Puff Puff, 2 PUFF IH Q4H PRN for SHORTNESS OF BREATH, ( Reported) 1 PUFF = 90 MCG Albuterol Sulfate 2.5 Mg/3 Ml Vial.neb, 2.5 MG NEB Q4H PRN for SHORTNESS OF BREATH, (Reported) Ciprofloxacin HCl 500 Mg Tablet, 500 MG PO BID, #20 Ref 0 Prescribed by: CARMELO WHALEY on 04/15/17 0955 Clobetasol Propionate 15 Gm Oint...g., TOP BID, (Reported) Doxycycline Hyclate 100 Mg Capsule, 100 MG PO BID for 10 Days, (Reported) 10 DAY THERAPY FILLED 04-12-17 Hydrocodone/Acetaminophen 1 Each Tablet, 1 EACH PO Q6H PRN for PAIN, #15 Ref 0 Prescribed by: CARMELO WHALEY on 04/15/17 1000 Hydrocodone/Acetaminophen 1 Each Tablet, 1-2 EACH PO Q6H PRN for PAIN-MILD TO MODERATE, #20 Ref 0 Prescribed by: SANDRA LEE on 04/16/17 2251 Ibuprofen 200 Mg Tablet, 800 MG PO TID PRN for PAIN, (Reported) TAKES 4 (200MG) TABLETS L.acidoph & Paracasei,B.lactis 1 Each Capsule, 1 CAP PO DAILY PRN for STOMACH UPSET, (Reported) Loperamide HCl 2 Mg Tablet, PO UD PRN for DIARRHEA, (Reported) Mupirocin 30 Gm Oint...g., TP BID PRN for SORES, (Reported) Ondansetron 4 Mg Tab.rapdis, 4 MG PO Q4H PRN for NAUSEA/VOMITING-1ST LINE, ( Reported) Promethazine HCl 25 Mg Tablet, 25 MG PO Q6H PRN for NAUSEA/VOMITING-2ND LINE, ( Reported) Terbinafine HCl 15 Gm Cream..g., TP BID, (Reported) Constitutional: no symptoms reported, see HPI Musculoskeletal: see HPI, muscle pain (left lower extremity) Skin: see HPI, change in color, dryness, lesions, rash, other (Darier's syndrome bilat LE, Left>Right. Lesions to left LE with serosanguineous drainage , trace. ) (SANDRA LEE) Past Kwwtmki-Dqfirl-Dowhko Hx Patient Social History Alcohol Use: Denies Use Recreational Drug Use: No (HISTORY OF ILLICIT DRUG USE) Smoking Status: Never a Smoker 2nd Hand Smoke Exposure: No Recent Foreign Travel: No Contact w/Someone Who Travel: No Recent Infectious Disease Expo: No Recent Hopitalizations: No (SANDRA LEE) Immunizations Up To Date Tetanus Booster (TDap): Less than 5yrs PED Vaccines UTD: No Date of Pneumonia Vaccine: Jun 15, 2011 Date of Influenza Vaccine: Sep 16, 2015 (SANDRA LEE) Seasonal Allergies Seasonal Allergies: No (SANDRA LEE) Surgeries HX Surgeries: Yes (EGD, L MASTOIDECTOMY, R MYRINGOTOMY TUBE, BTL REVERSAL) Surgeries: Appendectomy, Ear Surgery, Gallbladder, Tubal Ligation (SANDRA LEE) Respiratory Hx Respiratory Disorders: Yes Respiratory Disorders: Pneumonia, Sleep Apnea (SANDRA LEE) Cardiovascular Hx Cardiac Disorders: Yes (-INDUCED HTN) Cardiac Disorders: Hypertension (SANDRA LEE) Neurological Hx Neurological Disorders: No (SANDRA LEE) 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 System Hx 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 Disorders: No Sexually Transmitted Disease: No HIV/AIDS: No Female 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 Disorders: Denies SCIENCE 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: Tubal 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 (SANDRA LEE) Genitourinary Hx Genitourinary Disorders: Yes Genitourinary Disorders: Kidney Stones, UTI-Chronic (SANDRA LEE) Gastrointestinal Hx Gastrointestinal Disorders: Yes Gastrointestinal Disorders: Gastroesophageal Reflux, Irritable Bowel (SANDRA LEE) Musculoskeletal Hx Musculoskeletal Disorders: Yes (CHRONIC GENERALIZED PAIN ) Musculoskeletal Disorders: Degenerate Disk Disease, Arthritis, Fibromyalgia, Chronic Back Pain (SANDRA LEE) Endocrine Hx Endocrine Disorders: No Endocrine Disorders: Diabetes, Non-Insulin dep (SANDRA LEE) HEENT HX ENT Disorders: Yes (MASTOIDITIS) HEENT Disorders: Chronic Ear Infection Loss of Vision: Denies Hearing Impairment: Hard of Hearing (SANDRA LEE) Cancer Hx Cancer: No (SANDRA LEE) Psychosocial Hx Psychiatric Problems: Yes (PSYCHOSIS, SOCIAL ANXIETY DISORDER) Behavioral Health Disorders: ADD/ADHD, Anxiety, Suicide Attempts, Bipolar, Personality Disorder, Schizophrenia, Depression (SANDRA LEE) Integumentary HX Skin/Integumentary Disorder: Yes (DARIER'S DISEASE. CHRONIC LEG CELLULITIS-- MRSA) Skin/Integumentary Disorders: Recent Skin Changes (SANDRA LEE) Blood Transfusions Hx Blood Disorders: No Adverse Reaction to a Blood Tr: No (SANDRA LEE) Reviewed Nursing Assessment Reviewed/Agree w Nursing PMH: Yes (SANDRA LEE) Family Medical History Significant Family History: Other Conditions/Hx Family Medial History: Cancer Chest pain 03 FATHER, Onset:Unknown UNCLE, Onset:Unknown Congestive heart failure Family history: Allergy 09 BROTHER, Onset:Unknown Family history: Arthritis 03 FATHER, Onset:Unknown 03 MOTHER, Onset:Unknown Family history: Asthma 03 FATHER, Onset:Unknown UNCLE, Onset:Unknown Family history: Diabetes mellitus Family history: Thyroid disorder 09 SISTER, Onset:Unknown Headache 03 MOTHER, Onset:Unknown Heart disease Hereditary disease 03 FATHER, Onset:Unknown 09 BROTHER, Onset:Unknown UNCLE, Onset:Unknown History of - respiratory disease 03 FATHER, Onset:Unknown UNCLE, Onset:Unknown Myocardial infarction Psychotic disorder 09 BROTHER, Onset:Unknown No Family History of: Abdominal aortic aneurysm Cicero's disease Alcoholism Aphasia Cancer of colon Cataract Congenital heart disease Cystic fibrosis Dementia Dysphagia Family history: Alzheimer's disease Family history: Breast disease Family history: Cardiovascular disease Family history: Coronary thrombosis Family history: Gastrointestinal disease Family history: Glaucoma Family history: Hypertension Family history: Osteoporosis Hearing loss History of - anemia History of drug abuse Human immunodeficiency virus (HIV) seropositivity Hypercholesterolemia Infertile Kidney disease Malignant neoplasm of lung Parkinson's disease Prostate cancer Seizure disorder Stroke Tuberculosis Visual impairment (SANDRA LEE) Family Medial History: Cancer Chest pain 03 FATHER, Onset:Unknown UNCLE, Onset:Unknown Congestive heart failure Family history: Allergy 09 BROTHER, Onset:Unknown Family history: Arthritis 03 FATHER, Onset:Unknown 03 MOTHER, Onset:Unknown Family history: Asthma 03 FATHER, Onset:Unknown UNCLE, Onset:Unknown Family history: Diabetes mellitus Family history: Thyroid disorder 09 SISTER, Onset:Unknown Headache 03 MOTHER, Onset:Unknown Heart disease Hereditary disease 03 FATHER, Onset:Unknown 09 BROTHER, Onset:Unknown UNCLE, Onset:Unknown History of - respiratory disease 03 FATHER, Onset:Unknown UNCLE, Onset:Unknown Myocardial infarction Psychotic disorder 09 BROTHER, Onset:Unknown No Family History of: Abdominal aortic aneurysm Antoni's disease Alcoholism Aphasia Cancer of colon Cataract Congenital heart disease Cystic fibrosis Dementia Dysphagia Family history: Alzheimer's disease Family history: Breast disease Family history: Cardiovascular disease Family history: Coronary thrombosis Family history: Gastrointestinal disease Family history: Glaucoma Family history: Hypertension Family history: Osteoporosis Hearing loss History of - anemia History of drug abuse Human immunodeficiency virus (HIV) seropositivity Hypercholesterolemia Infertile Kidney disease Malignant neoplasm of lung Parkinson's disease Prostate cancer Seizure disorder Stroke Tuberculosis Visual impairment (MAO HOGAN) Physical Exam Vital Signs Vital Sign - Last 12Hours 04/16/17 20:44 Temp 100.2 Pulse 102 Resp 20 B/P (MAP) 183/97 Pulse Ox 99 O2 Delivery Room Air (MAO HOGAN) Vital Signs Capillary Refill : Less Than 3 Seconds (JESUSSANDRA) General Appearance: WD/WN, moderate distress (secondary to pain), obese ( morbidly) HEENT: PERRL/EOMI, normal ENT inspection, TMs normal, pharynx normal Neck: non-tender, full range of motion, supple, normal inspection, No lymphadenopathy (R), No lymphadenopathy (L) Cardiovascular: normal peripheral pulses, regular rate, rhythm, no murmur, other (capillary refill on the left lower extremity is approximately 5 seconds, pedal pulses on the left are one plus dorsalis pedis and trace posterior tibialis. On the right lower extremity they are 1+. The left lower extremity is cool to touch at the foot and through the toes.) Respiratory: chest non-tender, lungs clear, normal breath sounds, no respiratory distress, no accessory muscle use Gastrointestinal: normal bowel sounds, non tender, soft, No guarding, No rebound, No tenderness Legs: bilateral leg normal range of motion, bilateral leg pain, left leg soft tissue tenderness, bilateral leg swelling Neurologic/Tendon: normal sensation, normal motor functions, normal tendon functions Neurologic/Psychiatric: no motor/sensory deficits, alert, normal mood/affect, oriented x 3 Skin: other (multiple stages of excoriation, ulcers to Left LE. With serosanguineous drainage and purulent drainage noted. She is exquisitely tender to light palpation on the left lower extremity from the knee to the ankle.) ( SANDRA LEE) Progress/Results/Core Measures Results/Orders Lab Results Laboratory Tests Test 04/16/17 21:34 04/16/17 22:00 Range/Units White Blood Count 10.6 4.3-11.0 10^3/uL Red Blood Count 4.61 4.35-5.85 10^6/uL Hemoglobin 11.4 L 11.5-16.0 G/DL Hematocrit 37 35-52 % Mean Corpuscular Volume 80 80-99 FL Mean Corpuscular Hemoglobin 25 25-34 PG Mean Corpuscular Hemoglobin Concent 31 L 32-36 G/DL Red Cell Distribution Width 15.0 H 10.0-14.5 % Platelet Count 313 130-400 10^3/uL Mean Platelet Volume 9.3 7.4-10.4 FL Neutrophils (%) (Auto) 75 42-75 % Lymphocytes (%) (Auto) 16 12-44 % Monocytes (%) (Auto) 4 0-12 % Eosinophils (%) (Auto) 5 0-10 % Basophils (%) (Auto) 0 0-10 % Neutrophils # (Auto) 8.0 H 1.8-7.8 X 10^3 Lymphocytes # (Auto) 1.7 1.0-4.0 X 10^3 Monocytes # (Auto) 0.4 0.0-1.0 X 10^3 Eosinophils # (Auto) 0.5 H 0.0-0.3 10^3/uL Basophils # (Auto) 0.0 0.0-0.1 10^3/uL Sodium Level 139 135-145 MMOL/L Potassium Level 4.0 3.6-5.0 MMOL/L Chloride Level 100 98-107 MMOL/L Carbon Dioxide Level 32 21-32 MMOL/L Anion Gap 7 5-14 MMOL/L Blood Urea Nitrogen 8 7-18 MG/DL Creatinine 0.77 0.60-1.30 MG/DL Estimat Glomerular Filtration Rate > 60 BUN/Creatinine Ratio 10 Glucose Level 113 H 70-105 MG/DL Lactic Acid Level 1.22 0.50-2.00 MMOL/L Calcium Level 9.0 8.5-10.1 MG/DL Total Bilirubin 0.6 0.1-1.0 MG/DL Aspartate Amino Transf (AST/SGOT) 20 5-34 U/L Alanine Aminotransferase (ALT/SGPT) 24 0-55 U/L Alkaline Phosphatase 88 40-136 U/L C-Reactive Protein High Sensitivity 6.14 H 0.00-0.50 MG/DL Total Protein 6.7 6.4-8.2 GM/DL Albumin 3.4 3.2-4.5 GM/DL Urine Color YELLOW Urine Clarity SLIGHTLY CLOUDY Urine pH 6 5-9 Urine Specific [place] 1.015 L 1.016-1.022 Urine Protein NEGATIVE NEGATIVE Urine Glucose (UA) NEGATIVE NEGATIVE Urine Ketones NEGATIVE NEGATIVE Urine Nitrite NEGATIVE NEGATIVE Urine Bilirubin NEGATIVE NEGATIVE Urine Urobilinogen 1 NORMAL MG/DL Urine Leukocyte Esterase 2+ H NEGATIVE Urine RBC (Auto) 1+ H NEGATIVE Urine RBC 0-2 /HPF Urine WBC 2-5 /HPF Urine Squamous Epithelial Cells 2-5 /HPF Urine Crystals NONE /LPF Urine Bacteria NONE /HPF Urine Casts NONE /LPF Urine Mucus NEGATIVE /LPF Urine Culture Indicated NO (MAO HOGAN) Vital Signs/I&O Vital Sign - Last 12Hours 04/16/17 20:44 Temp 100.2 Pulse 102 Resp 20 B/P (MAP) 183/97 Pulse Ox 99 O2 Delivery Room Air (MAO HOGAN) Blood Pressure Mean: 125 Progress Note : Time: 21:10 Progress Note Initial evaluation completed, recommended full workup for sepsis as she is tachycardic at 102 and temperature of 100.2. Based on the decreased pulses and coolness in the left lower extremity we'll obtain a venous ultrasound. Fentanyl 100 g for pain, IM. 0 patient to etiology for arterial ultrasound. Reviewed study with engineering lab technician, monophasic blood flow noted throughout the left lower extremity with no DVT noted. 0 patient continues to rate pain 8/10 fentanyl 100 g IM for pain. Discussed the patient's findings with Dr. Whaley by phone, recommended continuation of current medication and increasing pain medicine to hydrocodone/APAP 7.5/325. Patient instructed to follow-up at [facility] tomorrow. Nonadherent dressing applied to left LE. (SANDRA LEE) Diagnostic Imaging Comments NAME: MARIBELL ROSSI [facility] REC#: [id number] PT STATUS: DEP ER : 1980 PHYSICIAN: SANDRA LEE ADMIT DATE: 04/16/17/ER Signed Date of Exam: 04/16/17 US LEFT LOW EXT ARTERIAL [id number] INDICATION: Cellulitis with increasing severity pain. TECHNIQUE: Routine sonographic evaluation and duplex upper imaging performed of the left lower extremity arterial system. FINDINGS: The left lower extremity arterial system is patent to the level of the ankle. However, there is diffusely dampened monophasic waveforms present. A significant velocity change to suggest a focal area of stenosis is not suggested. The anterior tibial artery, however, is not imaged. IMPRESSION: No findings to suggest arterial occlusion with patency of the left lower extremity arterial system. There is, however, abnormal dampened monophasic waveforms noted throughout the left leg. Dictated by: Dictated on workstation # [id number] Dict: 04/17/17 0551 Trans: 04/17/17 1207 Interpreted by: PITO NATHAN DO Electronically signed by: PITO NATHAN DO 04/17/17 1207 (SANDRA LEE) Diagonstic Imaging: Ultrasound Plain Films/CT/US/NM/MRI: leg (left) Comments Stat read reads no arterial occlusion demonstrated. Monophasic waveforms. Anterior tibial artery not image. Reviewed: Reviewed Night Jarad Study, Reviewed by Me (MAO HOGAN) Departure Impression Impression: Primary Impression: DARIER'S DISEASE Additional Impressions: Cellulitis Qualified Codes: L03.116 - Cellulitis of left lower limb Pain, lower leg Qualified Codes: M79.662 - Pain in left lower leg Disposition: 01 HOME, SELF-CARE Condition: Improved Departure-Patient Inst. Decision time for Depature: 23:49 (MAO HOGAN) Referrals: LONDON MAXWELL DO (PCP) Primary Care Physician OCTAVIO RANDALL (Family) Primary Care Physician Patient Instructions: Acute Pain, Adult (DC), Cellulitis (Skin Infection), Adult (DC) Add. Discharge Instructions: Call [facility] tomorrow for follow-up appointment. Take Hydrocodone 5/325 mg TWO tablets every 4-6 hours for pain, until able to get new prescription. Take Ibuprofen 600 mg every 8 hours. Change dressings to left leg as needed. Continue taking prescribed antibiotics as directed. Return to Emergency department for temperature greater than 101, increased pain not relieved with medication, difficulty breathing, or new problems. All discharge instructions reviewed with patient and/or family. Voiced understanding. Scripts Hydrocodone/Acetaminophen (Hydrocodon-Acetaminoph 7.5-325) 1 Each Tablet 1-2 EACH PO Q6H Y for PAIN-MILD TO MODERATE, #20 TAB 0 Refills Prov: SANDRA LEE 04/16/17 Copy Copies To 1: CARMELO WHALEY MD, AMY ARNP Apr 16, 2017 21:54 MAO HOGAN Apr 16, 2017 23:49
[2017-04-16 22:00] LABS: BASOPHILS % (AUTO) 0 % (0-10); EOSINOPHILS # (AUTO) 0.5 10^3/uL (0.0-0.3); EOSINOPHILS % (AUTO) 5 % (0-10); LYMPHOCYTES # (AUTO) 1.7 X 10^3 (1.0-4.0); LYMPHOCYTES % (AUTO) 16 % (12-44); MEAN CORPUSCULAR HEMOGLOBIN 25 PG (25-34); MEAN CORPUSCULAR HGB CONC 31 G/DL (32-36); MEAN CORPUSCULAR VOLUME 80 FL (80-99); MEAN PLATELET VOLUME 9.3 FL (7.4-10.4); MONOCYTES # (AUTO) 0.4 X 10^3 (0.0-1.0); MONOCYTES % (AUTO) 4 % (0-12); NEUTROPHILS % (AUTO) 75 % (42-75); PLATELET COUNT 313 10^3/uL (130-400); RED BLOOD COUNT 4.61 10^6/uL (4.35-5.85); WHITE BLOOD COUNT 10.6 10^3/uL (4.3-11.0)
[2017-04-16 22:05] LABS: BILIRUBIN,URINE NEGATIVE (NEGATIVE); KETONES,URINE NEGATIVE (NEGATIVE); LEUKOCYTE ESTERASE ,URINE 2+ (NEGATIVE); NITRITE,URINE NEGATIVE (NEGATIVE); PH,URINE 6 (5-9); PROTEIN,URINE NEGATIVE (NEGATIVE); UROBILINOGEN,URINE 1 MG/DL (NORMAL)
[2017-04-16 22:18] LABS: ALANINE AMINOTRANSFERASE 24 U/L (0-55); ALBUMIN 3.4 GM/DL (3.2-4.5); ANION GAP 7 MMOL/L (5-14); ASPARTATE AMINO TRANSFERASE 20 U/L (5-34); BILIRUBIN,TOTAL 0.6 MG/DL (0.1-1.0); BLOOD UREA NITROGEN 8 MG/DL (7-18); BUN/CREATININE RATIO 10; CARBON DIOXIDE 32 MMOL/L (21-32); CHLORIDE 100 MMOL/L (98-107); CREATININE SERUM 0.77 MG/DL (0.60-1.30); GFR ESTIMATED > 60; GLUCOSE 113 MG/DL (70-105); SODIUM 139 MMOL/L (135-145); TOTAL PROTEIN 6.7 GM/DL (6.4-8.2); hs C REACTIVE PROTEIN 6.14 MG/DL (0.00-0.50)
[2017-04-16] MEDS ORDERED: HYDR-3816 PO (22:51)
[2017-04-16 23:48] VITALS: BP 168/92
--- NOTE | 2017-04-17 06:23 | Diagnostic Imaging Report ---
INDICATION: Cellulitis with increasing severity pain. TECHNIQUE: Routine sonographic evaluation and duplex upper imaging performed of the left lower extremity arterial system. FINDINGS: The left lower extremity arterial system is patent to the level of the ankle. However, there is diffusely dampened monophasic waveforms present. A significant velocity change to suggest a focal area of stenosis is not suggested. The anterior tibial artery, however, is not imaged. IMPRESSION: No findings to suggest arterial occlusion with patency of the left lower extremity arterial system. There is, however, abnormal dampened monophasic waveforms noted throughout the left leg. Dictated by: Dictated on workstation # [id number]
== END 2017-04-16 23:48 | disposition home or self-care (01) ==
LOC: EDUNIT# 20:39 → ER 20:41
DX: Q82.8 Other specified congenital malformations of skin (principal); L03.116 Cellulitis of left lower limb; I10 Essential (primary) hypertension; K21.9 Gastro-esophageal reflux disease without esophagitis; M19.90 Unspecified osteoarthritis, unspecified site; E11.9 Type 2 diabetes mellitus without complications; M54.9 Dorsalgia, unspecified; G89.29 Other chronic pain; F90.9 Attention-deficit hyperactivity disorder, unspecified type; F41.9 Anxiety disorder, unspecified; F31.9 Bipolar disorder, unspecified; F20.9 Schizophrenia, unspecified; Z91.5 Personal history of self-harm; Z82.49 Family history of ischemic heart disease and other diseases of the circulatory system
CPT/HCPCS: 36415; 80053; 81000; 83605; 85025; 86141; 87040; 93926; 96372; 99284

== ENCOUNTER 2017-04-22 10:16 | Inpatient (IN) | payer MEDICARE ==
[~2017-04-22] VITALS: Ht 165.1 cm; Wt 163.3 kg
[~2017-04-22 10:16] MED LIST changes: +HYDR-3816 PO
[2017-04-22 11:10] VITALS: BP 131/85
[2017-04-22] MEDS ORDERED: PROMETHAZINE INJ 25 MG/ML (PHENERGAN) AMP IVP PRN (11:15)
[2017-04-22] MEDS ORDERED: ACETAMINOPHEN 500 MG TAB (TYLENOL) PO PRN (11:15)
[2017-04-22] MEDS ORDERED: ONDANSETRON 4 MG/5 ML ORAL SOLN (ZOFRAN) 5 ML PO PRN (11:15)
[2017-04-22] MEDS: ENOXAPARIN 40 MG/0.4 ML (LOVENOX) SYR SC SCH (11:26)
[2017-04-22] MEDS ORDERED: HYDR-3812 PO (12:34)
[2017-04-22] MEDS ORDERED: CIPR500T4 PO (12:34)
[2017-04-22 12:38] LABS: BASOPHILS % (AUTO) 0 % (0-10); EOSINOPHILS # (AUTO) 0.5 10^3/uL (0.0-0.3); EOSINOPHILS % (AUTO) 5 % (0-10); LYMPHOCYTES # (AUTO) 2.5 X 10^3 (1.0-4.0); LYMPHOCYTES % (AUTO) 22 % (12-44); MEAN CORPUSCULAR HEMOGLOBIN 25 PG (25-34); MEAN CORPUSCULAR HGB CONC 32 G/DL (32-36); MEAN CORPUSCULAR VOLUME 79 FL (80-99); MONOCYTES # (AUTO) 0.6 X 10^3 (0.0-1.0); MONOCYTES % (AUTO) 5 % (0-12); NEUTROPHILS # (AUTO) 7.7 X 10^3 (1.8-7.8); NEUTROPHILS % (AUTO) 68 % (42-75); PLATELET COUNT 314 10^3/uL (130-400); RED BLOOD COUNT 4.35 10^6/uL (4.35-5.85); RED CELL DISTRIBUTION WIDTH 14.9 % (10.0-14.5); WHITE BLOOD COUNT 11.3 10^3/uL (4.3-11.0)
[2017-04-22] MEDS ORDERED: HYDR-3816 PO (12:46)
[2017-04-22] MEDS ORDERED: SILV20CR14 TP (12:46)
[2017-04-22 12:58] LABS: ALANINE AMINOTRANSFERASE 25 U/L (0-55); ALBUMIN 3.4 GM/DL (3.2-4.5); ANION GAP 11 MMOL/L (5-14); ASPARTATE AMINO TRANSFERASE 18 U/L (5-34); BILIRUBIN,TOTAL 0.4 MG/DL (0.1-1.0); BLOOD UREA NITROGEN 15 MG/DL (7-18); BUN/CREATININE RATIO 22; CALCIUM 9.3 MG/DL (8.5-10.1); CARBON DIOXIDE 25 MMOL/L (21-32); CHLORIDE 102 MMOL/L (98-107); CREATININE SERUM 0.68 MG/DL (0.60-1.30); GFR ESTIMATED > 60; GLUCOSE 99 MG/DL (70-105); SODIUM 138 MMOL/L (135-145); TOTAL PROTEIN 7.1 GM/DL (6.4-8.2); hs C REACTIVE PROTEIN 2.85 MG/DL (0.00-0.50)
[2017-04-22] MEDS: KETOROLAC 30 MG/ML VIAL IVP PRN (15:19)
[2017-04-22 15:35] VITALS: BP 134/66
[2017-04-22] MEDS ORDERED: RT-ALBUTEROL SULF 2.5 MG/3 ML PRE-MIX VIAL IH PRN (16:15)
[2017-04-22] MEDS ORDERED: MUPIROCIN 2% OINT 22 GM (BACTROBAN) TUBE TP PRN (16:15)
[2017-04-22] MEDS ORDERED: IBUPROFEN TABLET 200 MG TAB PO PRN (16:15)
[2017-04-22] MEDS: HYDROcodone/APAP 7.5 MG/325 MG (LORTAB, LORCET PLUS) TABLET PO PRN (17:42)
[2017-04-22 20:00] VITALS: BP 145/63
[2017-04-22] MEDS: BETAMETHASONE DIPRO (AUGMENTED) 0.05% CREAM 15 GM TOP SCH (22:13)
[2017-04-23 00:34] VITALS: BP 132/60
[2017-04-23] MEDS: HYDROcodone/APAP 7.5 MG/325 MG (LORTAB, LORCET PLUS) TABLET PO PRN ×3 (02:53→17:35)
[2017-04-23 04:52] VITALS: BP 151/68
[2017-04-23 05:44] LABS: MEAN PLATELET VOLUME 8.9 FL (7.4-10.4); RED BLOOD COUNT 4.53 10^6/uL (4.35-5.85); RED CELL DISTRIBUTION WIDTH 15.2 % (10.0-14.5); WHITE BLOOD COUNT 12.2 10^3/uL (4.3-11.0)
[2017-04-23 06:04] LABS: ANION GAP 12 MMOL/L (5-14); BLOOD UREA NITROGEN 19 MG/DL (7-18); BUN/CREATININE RATIO 25; CALCIUM 9.2 MG/DL (8.5-10.1); CARBON DIOXIDE 23 MMOL/L (21-32); CHLORIDE 103 MMOL/L (98-107); CREATININE SERUM 0.75 MG/DL (0.60-1.30); GFR ESTIMATED > 60; GLUCOSE 88 MG/DL (70-105); POTASSIUM 3.8 MMOL/L (3.6-5.0); SODIUM 138 MMOL/L (135-145)
[2017-04-23 08:00] VITALS: BP 123/87
[2017-04-23] MEDS: BETAMETHASONE DIPRO (AUGMENTED) 0.05% CREAM 15 GM TOP SCH (08:06)
[2017-04-23] MEDS: KETOROLAC 30 MG/ML VIAL IVP PRN (08:06)
--- NOTE | 2017-04-23 09:06 | Wound Care Progress Note ---
Subjective Subjective Subjective/Events-last exam 36 year old female with Darier's disease, previously seen, now with acute cellulitis in bilateral leg ulcers. The patient's inflammation of the skin is worsened by chronic lymphedema. The patient relates not being able to elevate recently. Has been on chronic topical Triamcinolone. but has failed to use it regularly. The wounded area of the R calf, which is the worst area, is swab cultured. The patient is begun on IV Cephazolin. PMH: Darier's disease - arrangements were made in the past for the patient to be followed by Dermatology, but that fell through. Morbid obesity, lymphedema, Hx of MRSA. Review of Systems Date Seen by Provider: Apr 23, 2017 Time Seen by Provider: 09:30 General: Chills, Fatigue Pulmonary: No Dyspnea Cardiovascular: No: Chest Pain Objective Exam Last Set of Vital Signs Vital Signs Date Time Temp Pulse Resp B/P (MAP) Pulse Ox O2 Delivery O2 Flow Rate FiO2 04/23/17 04:52 98.1 86 20 151/68 100 Room Air Capillary Refill : I&O Bad tableGeneral: Alert, No Acute Distress Lungs: Normal Air Movement Skin: Other (Diffuse ulceration/maceration of R anterior calf, 5.5 x 6.0 x 0.1 cm, base 50% slough, 50% regenerating tissue. Cellulitis both anterior calves.) Results Lab Laboratory Tests 04/22/17 12:25: White Blood Count 11.3H, Red Blood Count 4.35, Hemoglobin 10.9L, Hematocrit 35, Mean Corpuscular Volume 79L, Mean Corpuscular Hemoglobin 25, Mean Corpuscular Hemoglobin Concent 32, Red Cell Distribution Width 14.9H, Platelet Count 314, Mean Platelet Volume 9.0, Neutrophils (%) (Auto) 68, Lymphocytes (%) (Auto) 22, Monocytes (%) (Auto) 5, Eosinophils (%) (Auto) 5, Basophils (%) (Auto) 0, Neutrophils # (Auto) 7.7, Lymphocytes # (Auto) 2.5, Monocytes # (Auto) 0.6, Eosinophils # (Auto) 0.5H, Basophils # (Auto) 0.0, Sodium Level 138, Potassium Level 4.0, Chloride Level 102, Carbon Dioxide Level 25, Anion Gap 11, Blood Urea Nitrogen 15, Creatinine 0.68, Estimat Glomerular Filtration Rate > 60, BUN/ Creatinine Ratio 22, Glucose Level 99, Calcium Level 9.3, Total Bilirubin 0.4, Aspartate Amino Transf (AST/SGOT) 18, Alanine Aminotransferase (ALT/SGPT) 25, Alkaline Phosphatase 93, C-Reactive Protein High Sensitivity 2.85H, Total Protein 7.1, Albumin 3.4 04/23/17 05:23: White Blood Count 12.2H, Red Blood Count 4.53, Hemoglobin 11.2L, Hematocrit 36, Mean Corpuscular Volume 79L, Mean Corpuscular Hemoglobin 25, Mean Corpuscular Hemoglobin Concent 32, Red Cell Distribution Width 15.2H, Platelet Count 328, Mean Platelet Volume 8.9, Sodium Level 138, Potassium Level 3.8, Chloride Level 103, Carbon Dioxide Level 23, Anion Gap 12, Blood Urea Nitrogen 19H, Creatinine 0.75, Estimat Glomerular Filtration Rate > 60, BUN/Creatinine Ratio 25, Glucose Level 88, Calcium Level 9.2 Assessment/Plan Assessment/Plan Assessment/Plan 1. R anterior calf ulcer, partial thickness. 2. Bilateral calf cellulitis. 3. Darier''s disease, with incomplete adherence to care plan. 4. Lymphedema, worsened by sedentary lifestyle. Plan: Elevation at all times, IV Cephazolin, topical steroids. OLGA NICE MD Apr 23, 2017 09:06
[2017-04-23] MEDS: ENOXAPARIN 40 MG/0.4 ML (LOVENOX) SYR SC SCH (09:23)
[2017-04-23] MEDS: BETAMETHASONE DIPRO (AUGMENTED) 0.05% OINT 15 GM TOP SCH ×2 (09:24→21:03)
[2017-04-23] MEDS: ceFAZolin INJECTION 1,000 MG in NS (IVPB) 50 ML IV SCH ×2 (10:49→17:35)
[2017-04-23 16:55] VITALS: BP 126/68
[2017-04-24] VITALS: BP 132/59
[2017-04-24] MEDS: HYDROcodone/APAP 7.5 MG/325 MG (LORTAB, LORCET PLUS) TABLET PO PRN ×2 (02:18→12:03)
[2017-04-24] MEDS: ceFAZolin INJECTION 1,000 MG in NS (IVPB) 50 ML IV SCH ×2 (02:18→09:42)
[2017-04-24 06:18] LABS: MEAN PLATELET VOLUME 9.1 FL (7.4-10.4); RED BLOOD COUNT 4.15 10^6/uL (4.35-5.85); RED CELL DISTRIBUTION WIDTH 15.1 % (10.0-14.5); WHITE BLOOD COUNT 10.8 10^3/uL (4.3-11.0)
[2017-04-24 06:34] LABS: ANION GAP 11 MMOL/L (5-14); BLOOD UREA NITROGEN 15 MG/DL (7-18); BUN/CREATININE RATIO 23; CARBON DIOXIDE 21 MMOL/L (21-32); CHLORIDE 105 MMOL/L (98-107); CREATININE SERUM 0.66 MG/DL (0.60-1.30); GFR ESTIMATED > 60; GLUCOSE 97 MG/DL (70-105); POTASSIUM 4.5 MMOL/L (3.6-5.0); SODIUM 137 MMOL/L (135-145)
[2017-04-24 08:00] VITALS: BP 135/84
[2017-04-24] MEDS: BETAMETHASONE DIPRO (AUGMENTED) 0.05% OINT 15 GM TOP SCH (09:28)
[2017-04-24] MEDS: ENOXAPARIN 40 MG/0.4 ML (LOVENOX) SYR SC SCH (09:42)
--- NOTE | 2017-04-24 09:46 | Progress Note (SOAP) ---
Subjective Subjective/Events-last exam Patient reports improvement in her legs today. Dr Henderson was by this morning and told her she needs to do specific dressings. Is planning on a vacation next week to [place], "even if I have to go in a wheelchair." Review of Systems Date Seen by Provider: Apr 23, 2017 Time Seen by Provider: 09:00 General: No Chills, No Night Sweats Objective Exam Last Set of Vital Signs Vital Signs Date Time Temp Pulse Resp B/P (MAP) Pulse Ox O2 Delivery O2 Flow Rate FiO2 04/24/17 08:00 97.2 73 24 135/84 94 Room Air Capillary Refill : I&O Intake and Output 04/24/17 00:00 Intake Total 1350 ml Balance 1350 ml Intake Oral 1250 ml IV Total 100 ml # Voids 9 General: Alert, Oriented X3, Cooperative, No Acute Distress Lungs: Clear to Auscultation, Normal Air Movement, Other Heart: Regular Rate, Normal S1, Normal S2, No Murmurs, Gallops, Rubs Abdomen: Normal Bowel Sounds, Soft, No Tenderness, No Hepatosplenomegaly, No Masses, Other (obese) Extremities: No Clubbing, No Cyanosis Skin: Other (open wounds on left and right legs, very dry skin c/w Darier's disease) Psych/Mental Status: Mental Status NL, Mood NL Results/Procedures Lab Laboratory Tests 04/24/17 06:05: White Blood Count 10.8, Red Blood Count 4.15L, Hemoglobin 10.4L, Hematocrit 33L , Mean Corpuscular Volume 79L, Mean Corpuscular Hemoglobin 25, Mean Corpuscular Hemoglobin Concent 32, Red Cell Distribution Width 15.1H, Platelet Count 282, Mean Platelet Volume 9.1, Sodium Level 137, Potassium Level 4.5, Chloride Level 105, Carbon Dioxide Level 21, Anion Gap 11, Blood Urea Nitrogen 15, Creatinine 0.66, Estimat Glomerular Filtration Rate > 60, BUN/Creatinine Ratio 23, Glucose Level 97, Calcium Level 9.0 Microbiology 04/23/17 Gram Stain - Final, Resulted 04/23/17 Anaerobic Culture, Resulted Pending 04/23/17 Wound Culture - Preliminary, Resulted Staphylococcus Species Assessment/Plan Assessment/Plan Plan DARIER'S DISEASE CELLULITIS NONCOMPLIANCE WITH MEDICAL THERAPY ADM - will start cefazolin per Dr Santiago's recommendatinos. have also started class I steroid, which I question the degree of her compliance with. she did miss a derm appointment as she was goign to see a local FP in town, but she did not have a copy of her current insurance, so she had to reschedule. She would like to consider telehealth, so I will arrange that if possible. Emphasized importance of keeping her legs elevated - and sitting in her recliner at home without pillows under her is not enough. Diagnosis/Problems: Clinical Quality Measures DVT/VTE Risk/Contraindication: Risk Factor Score Per Nursin RFS Level Per Nursing on Admit: 3=High KEV SHELL MD Apr 24, 2017 9:46 am
--- NOTE | 2017-04-24 09:51 | Discharge Summary ---
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 have also started class I steroid, which I question the degree of her compliance with. she did miss a derm appointment as she was goign to see a local FP in [facility], but she did not have a copy of her current insurance, so she had to reschedule. She would like to consider telehealth, so I will arrange that if possible. Emphasized importance of keeping her legs elevated - and sitting in her recliner at home without pillows under her is not enough. DIS - pt continues to plan for her trip to [place]. Have discussed with her that she really must keep her legs elevated and be very diligent with the steroid creams. She already told us that this current exacerbation was from being in [facility], and she is plannign a trip again. her prognosis for these wounds to heal is very poor if she doesn't comply with our therapy. her WBC and fever are resolved, so she is appropriate for DC today. we will schedule her with telehealth dermatology through our clinic for consideration for retinoid therapy as well as with Dr Henderson and her PCP. 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 Admitted for IV antibiotics and aggressive nrusing care with bandages/wraps. Discharge Summary-Simple/Stand Discharge Physical Examination Allergies: Coded Allergies: NKANo Known Allergies (Verified Allergy, Mild, 02/08/17) Vitals & I&Os Vital Sign - Last 12Hours Date Time Temp Pulse Resp B/P (MAP) Pulse Ox O2 Delivery O2 Flow Rate FiO2 04/24/17 08:00 97.2 73 24 135/84 94 Room Air Intake and Output 04/24/17 00:00 Intake Total 1000 ml Balance 1000 ml General Appearance: Alert, Oriented X3, Cooperative, No Acute Distress Respiratory: Clear to Auscultation, Normal Air Movement Cardiovascular: Regular Rate, Normal S1, Normal S2, No Murmurs, Gallops, Rubs Abdominal: Normal Bowel Sounds, Soft, No Tenderness, No Hepatosplenomegaly, No Masses Extremities: No Clubbing, No Cyanosis, No Edema Skin: Other (improved cellulitis, less erythema surrounding the open areas) Hospital Course See final discharge diagnosis. Discharge Instructions to patient/family Please see electonic discharge instructions given to patient. Discharge Medications Reviewed and agree with Discharge Medication list on patient's Discharge Instruction sheet Clinical Quality Measures DVT/VTE Risk/Contraindication: Risk Factor Score Per Nursin RFS Level Per Nursing on Admit: 3=High Copy Copies To 1: OLGA HENDERSON MD Copies To 2: CAROLYNE STARR MD, JULIE A MD Apr 24, 2017 9:51 am
--- NOTE | 2017-04-24 11:20 | Discharge Instructions ---
Discharge Inst-[facility] Discharge Medications New, Converted or Re-Newed RX: Other Continued Medications: Albuterol Sulfate (Proair Hfa) 1 Puff Puff 2 PUFF IH Q4H PRN for SHORTNESS OF BREATH, PUFF 1 PUFF = 90 MCG Albuterol Sulfate (Albuterol Sulfate) 2.5 Mg/3 Ml Vial.neb 2.5 MG NEB Q4H PRN for SHORTNESS OF BREATH, EA Ciprofloxacin HCl (Ciprofloxacin HCl) 500 Mg Tablet 500 MG PO BID for 10 Days, TAB 10 DAY THERAPY FILLED 04-15-17 Clobetasol Propionate (Clobetasol Propionate) 15 Gm Oint...g. TOP BID, EA Doxycycline Hyclate (Doxycycline Hyclate) 100 Mg Capsule 100 MG PO BID for 10 Days, CAP 10 DAY THERAPY FILLED 04-12-17 LAST DOSE TO BE TAKEN EVENING OF 04-22-17 Hydrocodone/Acetaminophen (Hydrocodon-Acetaminoph 7.5-325) 1 Each Tablet 1-2 TAB PO Q6H PRN for PAIN-MODERATE, TAB Ibuprofen (Advil) 200 Mg Tablet 1200 MG PO TID PRN for PAIN-MILD, TAB TAKES 6 (200MG) TABLETS L.acidoph & Paracasei,B.lactis (Probiotic) 1 Each Capsule 1 CAP PO DAILY PRN for STOMACH UPSET, CAP Loperamide HCl (Imodium A-D) 2 Mg Tablet PO UD PRN for DIARRHEA, TAB Mupirocin (Centany) 30 Gm Oint...g. TP BID PRN for SORES, TUBE Ondansetron (Zofran Odt) 4 Mg Tab.rapdis 4 MG PO Q4H PRN for NAUSEA/VOMITING-1ST LINE, TAB Promethazine HCl (Promethazine Tablet) 25 Mg Tablet 25 MG PO Q6H PRN for NAUSEA/VOMITING-2ND LINE, TAB Silver Sulfadiazine (Silvadene) 20 Gm Cream..g. TP DAILY, TUBE Terbinafine HCl (Terbinafine) 15 Gm Cream..g. TP BID, EA Patient Instructions Goal/Follow Up Appt: - MAY 01 AT 10:[address] STARR - FridayAPRIL [address] NICE - [facility] WILL CALL YOU WITH YOUR APPOINTMENT WITH THE REHABILITATION MANAGER. Patient Instructions: - PLEASE TAKE ALL PILLS AND USE CREAMS PRESCRIBED. - YOU HAVE A VERY HIGH CHANCE OF REQUIRING RE-HOSPITALIZATION IF YOU DO NOT KEEP YOUR LEGS ELEVATED. YOUR DOCTORS RECOMMEND POSTPONING YOUR TRIP TO [place] THIS WILL AGGRAVATE THE OPEN WOUNDS AND LIKELY CAUSE REINFECTION. - FOLLOW DR NICE'S INSTRUCTIONS REGARDING DRESSING CHANGES. Return to [facility] For: FEVER, INCREASING WEEPING OR REDNESS OF WOUNDS. Activity & Diet Discharge Diet: No Restrictions Activity as Tolerated: No (KEEP LEGS ELEVATED AT ALL TIMES UNTIL LESIONS ARE NO LONGER OPEN AND WEEPING) Copy Copies To 1: CAROLYNE STARR MD; OLGA NICE MD, JULIE A MD Apr 24, 2017 11:20 am
--- NOTE | 2017-04-24 13:41 | Wound Care Progress Note ---
Subjective Subjective Subjective/Events-last exam 36 year old female with bilateral calf cellulitis much improved with IV Cefazolin. She may be discharged, will follow-up in [facility]. The patient has Dermatology appointment. Review of Systems Date Seen by Provider: Apr 24, 2017 Time Seen by Provider: 15:30 Pulmonary: No Dyspnea Cardiovascular: No: Chest Pain Objective Exam Last Set of Vital Signs Vital Signs Date Time Temp Pulse Resp B/P (MAP) Pulse Ox O2 Delivery O2 Flow Rate FiO2 04/24/17 12:43 97.2 04/24/17 08:00 73 24 135/84 94 Room Air Capillary Refill : I&O Intake and Output 04/24/17 00:00 Intake Total 1350 ml Balance 1350 ml Intake Oral 1250 ml IV Total 100 ml # Voids 9 General: Alert, Mild Distress Lungs: Normal Air Movement Skin: Other (markedly improved celluitis and clean ulcer beds.) Results Lab Laboratory Tests 04/24/17 06:05: White Blood Count 10.8, Red Blood Count 4.15L, Hemoglobin 10.4L, Hematocrit 33L , Mean Corpuscular Volume 79L, Mean Corpuscular Hemoglobin 25, Mean Corpuscular Hemoglobin Concent 32, Red Cell Distribution Width 15.1H, Platelet Count 282, Mean Platelet Volume 9.1, Sodium Level 137, Potassium Level 4.5, Chloride Level 105, Carbon Dioxide Level 21, Anion Gap 11, Blood Urea Nitrogen 15, Creatinine 0.66, Estimat Glomerular Filtration Rate > 60, BUN/Creatinine Ratio 23, Glucose Level 97, Calcium Level 9.0 Microbiology 04/23/17 Gram Stain - Final, Resulted 04/23/17 Anaerobic Culture, Resulted Pending 04/23/17 Wound Culture - Preliminary, Resulted Staphylococcus Species Assessment/Plan Assessment/Plan Assessment/Plan 1. R calf ulceration due to Darier's disease and lymphedema. 2. Cellulitis, improved on IV cephazolin. Plan: May be discherged on p.o.keflex. Will follow in clinic, until she can establish care at dermatology. OLGA NICE MD Apr 24, 2017 13:41
[2017-04-24 14:30] VITALS: BP 135/84
[2017-04-27] MEDS ORDERED: IBUPROFEN 600 MG (MOTRIN) TAB PO PRN (17:00)
== END 2017-04-24 14:40 | disposition home or self-care (01) | DRG 603 ==
LOC: 4TH 11:01
PROVIDERS: ADMIT Pediatrics; ATTEND Pediatrics
DX: L03.115 Cellulitis of right lower limb (principal); L03.116 Cellulitis of left lower limb; L97.219 Non-pressure chronic ulcer of right calf with unspecified severity; L97.229 Non-pressure chronic ulcer of left calf with unspecified severity; Z68.43 Body mass index [BMI] 50.0-59.9, adult; Q82.8 Other specified congenital malformations of skin; E66.9 Obesity, unspecified; Z91.19 Patient's noncompliance with other medical treatment and regimen
CPT/HCPCS: 36415; 76937; 80048; 80053; 85025; 85027; 86141; 87070; 87075; 87077; 87186; 87205

== ENCOUNTER → 2017-05-07 | Outpatient (CLI) | payer MEDICARE, MEDICAID ==
[~2017-05-07] MED LIST changes: +CIPR500T4 PO; +SILV20CR14 TP
== END ==
LOC: WOUNDCARE 09:17
PROVIDERS: ATTEND Surgery
DX: L97.211 Non-pressure chronic ulcer of right calf limited to breakdown of skin (principal); L97.221 Non-pressure chronic ulcer of left calf limited to breakdown of skin; Q82.8 Other specified congenital malformations of skin; E66.01 Morbid (severe) obesity due to excess calories; Z68.44 Body mass index [BMI] 60.0-69.9, adult
CPT/HCPCS: 97597

== ENCOUNTER → 2017-05-26 | Outpatient (CLI) | payer MEDICARE, MEDICAID | LOC: WOUNDCARE 14:24 | PROVIDERS: ATTEND Surgery | DX: L97.211 Non-pressure chronic ulcer of right calf limited to breakdown of skin (principal); L97.221 Non-pressure chronic ulcer of left calf limited to breakdown of skin; E66.01 Morbid (severe) obesity due to excess calories; Q82.8 Other specified congenital malformations of skin | CPT/HCPCS: 97597 ==

== ENCOUNTER → 2017-06-09 | Outpatient (CLI) | payer MEDICARE, MEDICAID | LOC: WOUNDCARE 09:59 | PROVIDERS: ATTEND Surgery | DX: Q82.8 Other specified congenital malformations of skin (principal); L97.221 Non-pressure chronic ulcer of left calf limited to breakdown of skin; E66.01 Morbid (severe) obesity due to excess calories; Z68.44 Body mass index [BMI] 60.0-69.9, adult | CPT/HCPCS: 97597 ==

== ENCOUNTER → 2017-06-23 | Outpatient (CLI) | payer MEDICARE, MEDICAID | LOC: WOUNDCARE 09:55 | PROVIDERS: ATTEND Surgery | DX: Q82.8 Other specified congenital malformations of skin (principal); L97.221 Non-pressure chronic ulcer of left calf limited to breakdown of skin; E66.01 Morbid (severe) obesity due to excess calories; Z68.44 Body mass index [BMI] 60.0-69.9, adult | CPT/HCPCS: 99213 ==

== ENCOUNTER 2018-02-23 16:21 | Emergency (ER) | payer MEDICARE, MEDICAID ==
[~2018-02-23] VITALS: Ht 165.1 cm; Wt 142.9 kg
[~2018-02-23 16:21] MED LIST changes: +ACET-2267 PO; +ACHD5005 PO; +CLOB15OI2 TP; +DOXY100T19 PO; +HYDR-34 PO; -HYDR-3816 PO; +MAFE56.7 TP; -METF500T4 PO; +METF500T5 PO; +TOPI50TA13 PO
[2018-02-23 18:44] LABS: BILIRUBIN,URINE NEGATIVE (NEGATIVE); CLARITY,URINE CLEAR; COLOR,URINE YELLOW; GLUCOSE, URINE (UA) NEGATIVE (NEGATIVE); KETONES,URINE 4+ (NEGATIVE); LEUKOCYTE ESTERASE ,URINE 1+ (NEGATIVE); NITRITE,URINE NEGATIVE (NEGATIVE); PH,URINE 6 (5-9); PROTEIN,URINE 2+ (NEGATIVE); UROBILINOGEN,URINE 1 MG/DL (NORMAL)
[2018-02-23] MEDS ORDERED: LACTATED RINGERS 1,000 ML IV ONE ×2 (18:44→19:56)
[2018-02-23] MEDS ORDERED: fentaNYL INJECTION 100 MCG/2 ML AMP IVP ONE (18:45)
[2018-02-23 18:50] LABS: BACTERIA,URINE NEGATIVE /HPF; WBC,URINE RARE /HPF
--- NOTE | 2018-02-23 18:57 | ED Abdominal Pain ---
General Chief Complaint: General Problems/Pain Stated Complaint: DEHYDRATION; POSS UTI Nursing Triage Note: pt reports having gastric sleeve done on 02/11 and since has been unable to drink adequately. noticed dark urine approx 2-3 days ago and now having lower back pain and strong urine odor. pt thinks possible UTI. Sepsis Screen: No Definite Risk Source of Information: Patient Exam Limitations: No Limitations History of Present Illness Date Seen by Provider: Feb 23, 2018 Time Seen by Provider: 18:40 Initial Comments The patient presents to the ER by private conveyance from urgent care where she was seen earlier today and told they thought she might of been dehydrated and have a urinary tract infection and come to the ER for fluids and workup. The patient says she has been having dysuria, pain in her back at the costovertebral angle bilaterally and dark, malodorous urine. She had a gastric sleeve bypass about 2 weeks ago and since that time she's had difficulty with fluids because of sore throat and now just pain in her belly whenever she drinks more than an ounce or 2. She says she's been taking the protein shake and the vitamins but she has not taken anything for the pain because she does not have any liquid Tylenol or ibuprofen. She feels she is only getting about 30 cc of free water in per day. She says she's had a fever of 100.60 max. She is having no shortness of breath, cough but occasional nausea and none right now. No vomiting. She's had some loose watery stools occasionally. Midepigastric belly hurts whenever she drinks anything and she has constant ache in her back. She just recently got her AMARIS drain out of her right upper quadrant abdomen and has had a very small amount of drainage from it that she was told to expect but has slowly been decreasing. She is keeping the wound clean with soap and water and dressing it with gauze. She recently was on antibiotics for lower leg cellulitis in November. Allergies and Home Medications Allergies Coded Allergies: NKANo Known Allergies (Verified Allergy, Mild, 02/08/17) Home Medications Acetaminophen 500 Mg Tablet, 1,000 MG PO Q6H PRN for PAIN-MILD, (Reported) Albuterol Sulfate 1 Puff Puff, 2 PUFF IH Q4H PRN for SHORTNESS OF BREATH, ( Reported) 1 PUFF = 90 MCG Albuterol Sulfate 2.5 Mg/3 Ml Vial.neb, 2.5 MG NEB Q4H PRN for SHORTNESS OF BREATH, (Reported) Clobetasol Propionate 15 Gm Oint...g., TP BID, (Reported) 0.05% Doxycycline Monohydrate 100 Mg Tablet, 100 MG PO BID WITH MEALS Prescribed by: WILL NUNEZ on 01/06/181514 Hydrocodone/Acetaminophen 1 Each Tablet, 1 EACH PO Q6H PRN for PAIN-MODERATE TO SEVERE Prescribed by: WILL NUNEZ on 01/06/181514 L.acidoph & Paracasei,B.lactis 1 Each Capsule, 1 CAP PO DAILY PRN for STOMACH UPSET, (Reported) Loperamide HCl 2 Mg Tablet, PO UD PRN for DIARRHEA, (Reported) Mafenide Acetate 56.7 Gm Cream..g., 56.7 GM TP TID Prescribed by: WILL NUNEZ on 01/06/181514 Topiramate 50 Mg Tablet, 50 MG PO BID, (Reported) Patient Home Medication List Home Medication List Reviewed: Yes Review of Systems Constitutional: No chills; fever, malaise EENTM: No Blurred Vision, No Double Vision Respiratory: Denies Cough, Denies Shortness of Air Cardiovascular: Denies Chest Pain, Denies Edema Gastrointestinal: Denies Abdomen Distended; Abdominal Pain; Denies Constipated ; Diarrhea, Nausea; Denies Vomiting Genitourinary: Burning; Denies Discharge; Flank Pain (bilateral) Musculoskeletal: No back pain, No joint pain Skin: other (bilateral lower extremity cellulitis and wound on the right upper quadrant abdomen from AMARIS drain with granulation tissue and minimal discharge.) Psychiatric/Neurological: Denies Headache, Denies Numbness Past Wmzukzh-[id number]-Pduhww Hx Patient Social History Alcohol Use: Occasionally Uses Alcohol Beverage of Choice: Other Recreational Drug Use: No Drug of Choice: denies Type Used: Cigarettes 2nd Hand Smoke Exposure: No Recent Foreign Travel: No Contact w/Someone Who Travel: No Recent Infectious Disease Expo: No Recent Hopitalizations: No Immunizations Up To Date Tetanus Booster (TDap): Unknown PED Vaccines UTD: No Date of Pneumonia Vaccine: Jun 15, 2011 Date of Influenza Vaccine: Sep 16, 2015 Seasonal Allergies Seasonal Allergies: No Past Medical History Surgeries: Yes (EGD, L MASTOIDECTOMY, R MYRINGOTOMY TUBE, BTL REVERSAL) Appendectomy, Ear Surgery, Gallbladder, Tubal Ligation Respiratory: Yes Chronic Bronchitis, Sleep Apnea Currently Using CPAP: Yes (PT REPORTS "DOSEN'T WEAR VERY OFTEN") Currently Using BIPAP: No Cardiac: Yes (-INDUCED HTN) Hypertension Neurological: Yes : No 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 Disorders: No 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: Tubal Ligation Sexually Transmitted Disease: No HIV/AIDS: No Genitourinary: Yes Kidney Stones, UTI-Chronic Gastrointestinal: Yes Diverticulosis, Gall Bladder Disease, Irritable Bowel Musculoskeletal: Yes (CHRONIC GENERALIZED PAIN ) Degenerate Disk Disease, Arthritis, Fibromyalgia, Chronic Back Pain Endocrine: Yes (MORBID OBESITY) Diabetes, Non-Insulin dep HEENT: Yes (MASTOIDITIS) Chronic Ear Infection Loss of Vision: Denies Hearing Impairment: Hard of Hearing Cancer: No Psychosocial: Yes (PSYCHOSIS, SOCIAL ANXIETY DISORDER) ADD/ADHD, Anxiety, Suicide Attempts, Bipolar, Personality Disorder, Schizophrenia, Depression Integumentary: Yes (DARIER'S DISEASE. CHRONIC LEG CELLULITIS--MRSA) Recent Skin Changes Blood Disorders: No Adverse Reaction/Blood Tranf: No Family Medical History Cancer Chest pain 03 FATHER, Onset:Unknown UNCLE, Onset:Unknown Congestive heart failure Depression 03 MOTHER Depresso Family history: Allergy 09 BROTHER, Onset:Unknown Family history: Arthritis 03 FATHER, Onset:Unknown 03 MOTHER, Onset:Unknown Family history: Asthma 03 FATHER, Onset:Unknown UNCLE, Onset:Unknown Family history: Diabetes mellitus Family history: Thyroid disorder 09 SISTER, Onset:Unknown Headache 03 MOTHER, Onset:Unknown Heart disease Hereditary disease 03 FATHER, Onset:Unknown 09 BROTHER, Onset:Unknown UNCLE, Onset:Unknown History of - respiratory disease 03 FATHER, Onset:Unknown UNCLE, Onset:Unknown Myocardial infarction Psychotic disorder 09 BROTHER, Onset:Unknown No Family History of: Abdominal aortic aneurysm Litchfield's disease Alcoholism Aphasia Aphasia Cancer of colon Cataract Congenital heart disease Cystic fibrosis Dementia Dysphagia Family history: Alzheimer's disease Family history: Breast disease Family history: Cardiovascular disease Family history: Coronary thrombosis Family history: Gastrointestinal disease Family history: Glaucoma Family history: Hypertension Family history: Osteoporosis Hearing loss History of - anemia History of drug abuse Human immunodeficiency virus (HIV) seropositivity Hypercholesterolemia Infertile Kidney disease Malignant neoplasm of lung Parkinson's disease Prostate cancer Seizure disorder Stroke Tuberculosis Visual impairment Other Conditions/Hx MORBID OBESITY MULTIPLE ADMITS AND VISITS Physical Exam Vital Signs Vital Signs - First Documented 02/23/18 18:04 Temp 97.8 Pulse 76 Resp 18 B/P (MAP) 109/64 (79) Pulse Ox 100 O2 Delivery Room Air Capillary Refill : Less Than 3 Seconds General Appearance: WD/WN, no apparent distress HEENT: PERRL/EOMI, pharynx normal Neck: non-tender, full range of motion Respiratory: chest non-tender, lungs clear, normal breath sounds, no respiratory distress, no accessory muscle use Cardiovascular: normal peripheral pulses, regular rate, rhythm Peripheral Pulses: 2+ Radial Pulses (R), 2+ Radial Pulses (L) Gastrointestinal: normal bowel sounds, soft, no organomegaly, tenderness ( epigastric, mild) Extremities: normal range of motion, normal capillary refill Neurologic/Psychiatric: alert, oriented x 3 Skin: other (one and half centimeter diameter healing wound right upper quadrant abdomen from site of AMARIS drain removal.) Progress/Results/Core Measures Results/Orders Lab Results Laboratory Tests Test 02/23/18 18:19 02/23/18 19:02 Range/Units Urine Color YELLOW Urine Clarity CLEAR Urine pH 6 5-9 Urine Specific [place] 1.025 H 1.016-1.022 Urine Protein 2+ H NEGATIVE Urine Glucose (UA) NEGATIVE NEGATIVE Urine Ketones 4+ H NEGATIVE Urine Nitrite NEGATIVE NEGATIVE Urine Bilirubin NEGATIVE NEGATIVE Urine Urobilinogen 1 NORMAL MG/DL Urine Leukocyte Esterase 1+ H NEGATIVE Urine RBC (Auto) NEGATIVE NEGATIVE Urine RBC NONE /HPF Urine WBC RARE /HPF Urine Squamous Epithelial Cells 5-10 /HPF Urine Crystals NONE /LPF Urine Bacteria NEGATIVE /HPF Urine Casts NONE /LPF Urine Mucus SMALL H /LPF Urine Culture Indicated NO Urine Test NEGATIVE NEGATIVE White Blood Count 10.6 4.3-11.0 10^3/uL Red Blood Count 5.00 4.35-5.85 10^6/uL Hemoglobin 12.2 11.5-16.0 G/DL Hematocrit 38 35-52 % Mean Corpuscular Volume 75 L 80-99 FL Mean Corpuscular Hemoglobin 24 L 25-34 PG Mean Corpuscular Hemoglobin Concent 32 32-36 G/DL Red Cell Distribution Width 15.0 H 10.0-14.5 % Platelet Count 385 130-400 10^3/uL Mean Platelet Volume 9.8 7.4-10.4 FL Neutrophils (%) (Auto) 70 42-75 % Lymphocytes (%) (Auto) 21 12-44 % Monocytes (%) (Auto) 6 0-12 % Eosinophils (%) (Auto) 3 0-10 % Basophils (%) (Auto) 0 0-10 % Neutrophils # (Auto) 7.4 1.8-7.8 X 10^3 Lymphocytes # (Auto) 2.3 1.0-4.0 X 10^3 Monocytes # (Auto) 0.6 0.0-1.0 X 10^3 Eosinophils # (Auto) 0.3 0.0-0.3 10^3/uL Basophils # (Auto) 0.0 0.0-0.1 10^3/uL Sodium Level 141 135-145 MMOL/L Potassium Level 3.4 L 3.6-5.0 MMOL/L Chloride Level 105 98-107 MMOL/L Carbon Dioxide Level 21 21-32 MMOL/L Anion Gap 15 H 5-14 MMOL/L Blood Urea Nitrogen 7 7-18 MG/DL Creatinine 0.73 0.60-1.30 MG/DL Estimat Glomerular Filtration Rate > 60 BUN/Creatinine Ratio 10 Glucose Level 76 70-105 MG/DL Calcium Level 8.9 8.5-10.1 MG/DL Magnesium Level 1.7 L 1.8-2.4 MG/DL Total Bilirubin 0.6 0.1-1.0 MG/DL Aspartate Amino Transf (AST/SGOT) 24 5-34 U/L Alanine Aminotransferase (ALT/SGPT) 34 0-55 U/L Alkaline Phosphatase 97 40-136 U/L Total Protein 7.1 6.4-8.2 GM/DL Albumin 3.6 3.2-4.5 GM/DL Lipase 12 8-78 U/L My Orders Orders - MAO HOGAN Cbc With Automated Diff (02/23/18 18:44) Comprehensive Metabolic Panel (02/23/18 18:44) Hcg,Qualitative Urine (02/23/18 18:44) Lipase (02/23/18 18:44) Magnesium (02/23/18 18:44) Saline Lock/Iv-Start (02/23/18 18:44) Lactated Ringers (Lr 1000 Ml Iv Solution (02/23/18 18:44) Fentanyl Injection (Sublimaze Injection (02/23/18 18:45) Famotidine Injection (Pepcid Injection) (02/23/18 19:00) Ranitidine Injection (Zantac Injection) (02/23/18 19:00) Magnesium 1 Gm/100 Ml Ivpb (Magnesium Vyas (02/23/18 20:00) Saline Lock/Iv-Start (02/23/18 19:56) Lactated Ringers (Lr 1000 Ml Iv Solution (02/23/18 19:56) Medications Given in ED Current Medications Medications Dose Ordered Sig/Rosina Route Start Time Stop Time Status Last Admin Dose Admin Fentanyl Citrate 50 mcg ONCE ONCE IVP 02/23/18 18:45 02/23/18 18:49 DC 02/23/18 19:11 50 MCG Lactated Ringer's 1,000 ml @ 0 mls/hr Q0M ONCE IV 02/23/18 18:44 02/23/18 18:49 DC 02/23/18 19:11 0 MLS/HR Lactated Ringer's 1,000 ml @ 0 mls/hr Q0M ONCE IV 02/23/18 19:56 02/23/18 19:57 DC 02/23/18 20:07 1,000 MLS/HR Magnesium Sulfate/ Dextrose 100 ml @ 100 mls/hr ONCE ONCE IV 02/23/18 20:00 02/23/18 20:59 DC 02/23/18 20:07 100 MLS/HR Ranitidine HCl 50 mg ONCE ONCE IV 02/23/18 19:00 02/23/18 19:01 DC 02/23/18 19:11 50 MG Vital Signs/I&O 02/23/18 02/23/18 18:04 19:11 Temp 97.8 97.8 Pulse 76 Resp 18 B/P (MAP) 109/64 (79) Pulse Ox 100 O2 Delivery Room Air Blood Pressure Mean: 79 Progress Progress Note #1: Time: 18:59 Progress Note We'll obtain urine analysis to look for urinary tract infection possible pyelonephritis. We'll rehydrate her status start with 1 L of LR. We'll obtain some labs. Progress Note #2: Time: 20:22 Progress Note Urine is remarkable for being concentrated with ketones and probably secondary to dehydration. We'll give her a second liter fluid some more IV magnesium and have her keep her follow-up appointment on the with her primary care doctor. Her nausea and pain is under good control now. She does have hydrocodone at home which she is only been using about 1 tablet every other day she says. Her bowels seem to be moving well. After her fluids and magnesium are done we will let her leave as she is already feeling better. Departure Impression Primary Impression: Dehydration Additional Impressions: Status post laparoscopic sleeve gastrectomy Hypomagnesemia Disposition: HOME, SELF-CARE Condition: Stable Departure-Patient Inst. Decision time for Depature: 21:11 Referrals: [facility] (PCP) Primary Care Physician CAROLYNE STARR MD (Family) Primary Care Physician Patient Instructions: Dehydration, Adult (DC) Add. Discharge Instructions: Continue taking her vitamins as prescribed. Talk your primary doctor about an appointment if you're not feeling better in the next week. Keep your follow-up on 13 March with your surgeon. Discussed your low magnesium at that time. Continue to try and push at least 8 ounces of water an hour while awake. Return to the ER. Feel like you're having worsening nausea vomiting or pain. supervisor shipping your prescription for nausea medicine and use that as prescribed. All discharge instructions reviewed with patient and/or family. Voiced understanding. Copy Copies To 1: LONDON MAXWELL TITUS J Feb 23, 2018 18:57
[2018-02-23] MEDS ORDERED: FAMOTIDINE 20MG/2ML IV (PEPCID) IVP ONE (19:00)
[2018-02-23] MEDS ORDERED: raNItidine 50 MG/2 ML INJ (ZANTAC) IV ONE (19:00)
[2018-02-23 19:20] LABS: BASOPHILS % (AUTO) 0 % (0-10); EOSINOPHILS # (AUTO) 0.3 10^3/uL (0.0-0.3); EOSINOPHILS % (AUTO) 3 % (0-10); HEMATOCRIT 38 % (35-52); HEMOGLOBIN 12.2 G/DL (11.5-16.0); LYMPHOCYTES # (AUTO) 2.3 X 10^3 (1.0-4.0); LYMPHOCYTES % (AUTO) 21 % (12-44); MEAN CORPUSCULAR HEMOGLOBIN 24 PG (25-34); MEAN CORPUSCULAR HGB CONC 32 G/DL (32-36); MEAN CORPUSCULAR VOLUME 75 FL (80-99); MEAN PLATELET VOLUME 9.8 FL (7.4-10.4); MONOCYTES # (AUTO) 0.6 X 10^3 (0.0-1.0); MONOCYTES % (AUTO) 6 % (0-12); NEUTROPHILS # (AUTO) 7.4 X 10^3 (1.8-7.8); NEUTROPHILS % (AUTO) 70 % (42-75); PLATELET COUNT 385 10^3/uL (130-400); WHITE BLOOD COUNT 10.6 10^3/uL (4.3-11.0)
[2018-02-23 19:43] LABS: BUN/CREATININE RATIO 10; CARBON DIOXIDE 21 MMOL/L (21-32); CHLORIDE 105 MMOL/L (98-107); CREATININE SERUM 0.73 MG/DL (0.60-1.30); POTASSIUM 3.4 MMOL/L (3.6-5.0); SODIUM 141 MMOL/L (135-145)
[2018-02-23 19:44] LABS: ALANINE AMINOTRANSFERASE 34 U/L (0-55); ALBUMIN 3.6 GM/DL (3.2-4.5); ALKALINE PHOSPHATASE 97 U/L (40-136); BILIRUBIN,TOTAL 0.6 MG/DL (0.1-1.0); CALCIUM 8.9 MG/DL (8.5-10.1); GFR ESTIMATED > 60; GLUCOSE 76 MG/DL (70-105); LIPASE 12 U/L (8-78); MAGNESIUM 1.7 MG/DL (1.8-2.4); TOTAL PROTEIN 7.1 GM/DL (6.4-8.2)
[2018-02-23] MEDS ORDERED: MAGNESIUM 1 GM/100 ML IVPB 100 ML IV ONE (20:00)
[2018-02-23] MEDS ORDERED: RX-ONDANSETRON 4 MG ODT (ZOFRAN) PPK #4 PO STA (21:11)
[2018-02-23 21:18] VITALS: BP 115/62
== END 2018-02-23 21:15 | disposition home or self-care (01) ==
LOC: EDUNIT# 16:21 → ER 16:22
DX: E86.0 Dehydration (principal); E83.42 Hypomagnesemia; G47.30 Sleep apnea, unspecified; I10 Essential (primary) hypertension; E66.01 Morbid (severe) obesity due to excess calories; E11.9 Type 2 diabetes mellitus without complications; F90.9 Attention-deficit hyperactivity disorder, unspecified type; F41.9 Anxiety disorder, unspecified; F31.9 Bipolar disorder, unspecified; F20.9 Schizophrenia, unspecified; Z86.14 Personal history of Methicillin resistant Staphylococcus aureus infection; Z82.49 Family history of ischemic heart disease and other diseases of the circulatory system; Z91.5 Personal history of self-harm; Z87.19 Personal history of other diseases of the digestive system; Z87.442 Personal history of urinary calculi; Z79.51 Long term (current) use of inhaled steroids; Z68.43 Body mass index [BMI] 50.0-59.9, adult; Z90.89 Acquired absence of other organs; Z98.51 Tubal ligation status; Z96.22 Myringotomy tube(s) status; Z98.84 Bariatric surgery status
CPT/HCPCS: 36415; 80053; 81000; 83690; 83735; 84703; 85025; 96361; 96365; 96375

== ENCOUNTER 2018-06-10 13:44 | Emergency (ER) | payer MEDICARE, MEDICAID, OTHER ==
[~2018-06-10] VITALS: Ht 165.1 cm; Wt 122.5 kg
[~2018-06-10 13:44] MED LIST changes: -BENZ-13 PO; +BENZ100C18 PO; -IPRA3AMP IH; +IPRA3AMP31 IH; +METF-397 PO; -METF500T5 PO
[2018-06-10 14:00] LABS: BILIRUBIN,URINE NEGATIVE (NEGATIVE); CLARITY,URINE CLEAR; COLOR,URINE YELLOW; GLUCOSE, URINE (UA) NEGATIVE (NEGATIVE); KETONES,URINE NEGATIVE (NEGATIVE); LEUKOCYTE ESTERASE ,URINE 2+ (NEGATIVE); NITRITE,URINE NEGATIVE (NEGATIVE); PH,URINE 5 (5-9); PROTEIN,URINE 1+ (NEGATIVE); UROBILINOGEN,URINE 8 MG/DL (NORMAL)
[2018-06-10] MEDS ORDERED: NS IV 1000 ML 1,000 ML IV SCH (14:02)
[2018-06-10 14:07] LABS: BACTERIA,URINE FEW /HPF
--- NOTE | 2018-06-10 14:12 | ED GI ---
General Chief Complaint: Abdominal/GI Problems Stated Complaint: LOWER BACK AND ABD PAIN;DARK URINE Nursing Triage Note: pt began experiencing abdominal pain 4-5 days ago and reports poor fluid intake with dark urine. pt states she had a gastric sleeve placed the of last month. reports a headache over the last two days Sepsis Screen: No Definite Risk Source of Information: Patient, Family Exam Limitations: No Limitations History of Present Illness Date Seen by Provider: Jun 10, 2018 Time Seen by Provider: 13:56 Initial Comments The patient presents to the ER by private conveyance with chief complaint that she was the past couple days being feeling more dehydrated because every time she drinks some water or takes any of her protein shake she gets nauseated and sometimes even vomited up. She had a sleeve gastrectomy in January of this year by a surgeon in [place], [place]. She did go see her primary care doctor and they felt that the redness and rash on her left lower extremity with cellulitis and put her on double strength Bactrim which helped some but it did not go away and she's been off the medicines for couple days and she feels it is getting worse again. She says that she was told they cultured her leg and found MRSA. She does not have another appointment and cannot get a sooner appointment with her primary care doctor so she decided to come out here. She has Zofran at home but she has not used it. She says she has difficult time urinating and when she does urinate it smells very bad and is very dark. No dysuria, discharge, fever or chills. Allergies and Home Medications Allergies Coded Allergies: NKANo Known Allergies (Verified Allergy, Mild, 02/08/17) Home Medications Acetaminophen 500 Mg Tablet, 1,000 MG PO Q6H PRN for PAIN-MILD, (Reported) Albuterol Sulfate 1 Puff Puff, 2 PUFF IH Q4H PRN for SHORTNESS OF BREATH, ( Reported) 1 PUFF = 90 MCG Albuterol Sulfate 2.5 Mg/3 Ml Vial.neb, 2.5 MG NEB Q4H PRN for SHORTNESS OF BREATH, (Reported) Clobetasol Propionate 15 Gm Oint...g., TP BID, (Reported) 0.05% Doxycycline Monohydrate 100 Mg Tablet, 100 MG PO BID WITH MEALS Prescribed by: WILL NUNEZ on 01/06/181514 Hydrocodone/Acetaminophen 1 Each Tablet, 1 EACH PO Q6H PRN for PAIN-MODERATE TO SEVERE Prescribed by: WILL NUNEZ on 01/06/181514 L.acidoph & Paracasei,B.lactis 1 Each Capsule, 1 CAP PO DAILY PRN for STOMACH UPSET, (Reported) Loperamide HCl 2 Mg Tablet, PO UD PRN for DIARRHEA, (Reported) Mafenide Acetate 56.7 Gm Cream..g., 56.7 GM TP TID Prescribed by: WILL NUNEZ on 01/06/181514 Topiramate 50 Mg Tablet, 50 MG PO BID, (Reported) Patient Home Medication List Home Medication List Reviewed: Yes Review of Systems Review of Systems Constitutional: No chills, No fever; malaise EENTM: No Blurred Vision, No Double Vision Respiratory: Denies Cough, Denies Shortness of Air Cardiovascular: Denies Chest Pain, Denies Edema Gastrointestinal: Denies Constipated, Denies Diarrhea; Nausea, Vomiting Genitourinary: Denies Burning, Denies Discharge Musculoskeletal: No joint swelling, No muscle pain Skin: rash, other (weeping, red, indurated red rash on the left lower extremity.) Psychiatric/Neurological: Denies Headache, Denies Numbness Past Xuutyof-Rfmfuq-Zzvoam Hx Patient Social History Alcohol Use: Denies Use Alcohol Beverage of Choice: Other Recreational Drug Use: No Drug of Choice: denies Smoking Status: Former Smoker Type Used: Cigarettes 2nd Hand Smoke Exposure: No Recent Foreign Travel: No Contact w/Someone Who Travel: No Recent Infectious Disease Expo: No Recent Hopitalizations: No Immunizations Up To Date Tetanus Booster (TDap): Unknown PED Vaccines UTD: No Date of Pneumonia Vaccine: Jun 15, 2011 Date of Influenza Vaccine: Sep 16, 2015 Seasonal Allergies Seasonal Allergies: No Past Medical History Surgeries: Yes (EGD, L MASTOIDECTOMY, R MYRINGOTOMY TUBE, BTL REVERSAL) Appendectomy, Ear Surgery, Gallbladder, Tubal Ligation Respiratory: Yes Chronic Bronchitis, Sleep Apnea Currently Using CPAP: Yes (PT REPORTS "DOSEN'T WEAR VERY OFTEN") Currently Using BIPAP: No Cardiac: Yes (-INDUCED HTN) Hypertension Neurological: Yes : No (tubal litigation) 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 Disorders: No 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 Sexually Transmitted Disease: No HIV/AIDS: No Genitourinary: Yes Kidney Stones, UTI-Chronic Gastrointestinal: Yes Diverticulosis, Gall Bladder Disease, Irritable Bowel Musculoskeletal: Yes (CHRONIC GENERALIZED PAIN ) Degenerate Disk Disease, Arthritis, Fibromyalgia, Chronic Back Pain Endocrine: Yes (MORBID OBESITY) Diabetes, Non-Insulin dep HEENT: Yes (MASTOIDITIS) Chronic Ear Infection Loss of Vision: Denies Hearing Impairment: Hard of Hearing Cancer: No Psychosocial: Yes (PSYCHOSIS, SOCIAL ANXIETY DISORDER) ADD/ADHD, Anxiety, Suicide Attempts, Bipolar, Personality Disorder, Schizophrenia, Depression Integumentary: Yes (DARIER'S DISEASE. CHRONIC LEG CELLULITIS--MRSA) Recent Skin Changes Blood Disorders: No Adverse Reaction/Blood Tranf: No Family Medical History Cancer Chest pain 03 FATHER, Onset:Unknown UNCLE, Onset:Unknown Congestive heart failure Depression 03 MOTHER Depresso Family history: Allergy 09 BROTHER, Onset:Unknown Family history: Arthritis 03 FATHER, Onset:Unknown 03 MOTHER, Onset:Unknown Family history: Asthma 03 FATHER, Onset:Unknown UNCLE, Onset:Unknown Family history: Diabetes mellitus Family history: Thyroid disorder 09 SISTER, Onset:Unknown Headache 03 MOTHER, Onset:Unknown Heart disease Hereditary disease 03 FATHER, Onset:Unknown 09 BROTHER, Onset:Unknown UNCLE, Onset:Unknown History of - respiratory disease 03 FATHER, Onset:Unknown UNCLE, Onset:Unknown Myocardial infarction Psychotic disorder 09 BROTHER, Onset:Unknown No Family History of: Abdominal aortic aneurysm [place]'s disease Alcoholism Aphasia Aphasia Cancer of colon Cataract Congenital heart disease Cystic fibrosis Dementia Dysphagia Family history: Alzheimer's disease Family history: Breast disease Family history: Cardiovascular disease Family history: Coronary thrombosis Family history: Gastrointestinal disease Family history: Glaucoma Family history: Hypertension Family history: Osteoporosis Hearing loss History of - anemia History of drug abuse Human immunodeficiency virus (HIV) seropositivity Hypercholesterolemia Infertile Kidney disease Malignant neoplasm of lung Parkinson's disease Prostate cancer Seizure disorder Stroke Tuberculosis Visual impairment Other Conditions/Hx MORBID OBESITY MULTIPLE ADMITS AND VISITS Physical Exam Vital Signs Vital Signs - First Documented 06/10/18 13:49 Temp 98.3 Pulse 80 Resp 20 B/P (MAP) 147/89 (108) Pulse Ox 99 O2 Delivery Room Air Capillary Refill : Less Than 3 Seconds Height/Weight/BMI Height: 5'5.00" Weight: 270lbs. 3.2oz. [id number]; 54.8 BMI Method:Stated General Appearance: no apparent distress, obese HEENT: PERRL/EOMI, pharynx normal (mildly dry oral mucosa) Neck: non-tender, normal inspection Respiratory: chest non-tender, lungs clear, normal breath sounds, no respiratory distress, no accessory muscle use Cardiovascular: normal peripheral pulses, regular rate, rhythm, no edema Gastrointestinal: normal bowel sounds, non tender, soft Extremities: normal range of motion, normal capillary refill, swelling, other ( moderate tenderness, erythematous, indurated, weeping, and cellulitic appearance ) Neurologic/Psychiatric: alert, normal mood/affect, oriented x 3 Skin: other (cellulitic, erythematous warm tender indurated appearance to the left lower extremity) Progress/Results/Core Measures Results/Orders Lab Results Laboratory Tests Test 06/10/18 13:47 06/10/18 14:34 Range/Units Urine Color YELLOW Urine Clarity CLEAR Urine pH 5 5-9 Urine Specific [place] 1.025 H 1.016-1.022 Urine Protein 1+ H NEGATIVE Urine Glucose (UA) NEGATIVE NEGATIVE Urine Ketones NEGATIVE NEGATIVE Urine Nitrite NEGATIVE NEGATIVE Urine Bilirubin NEGATIVE NEGATIVE Urine Urobilinogen 8 H NORMAL MG/DL Urine Leukocyte Esterase 2+ H NEGATIVE Urine RBC (Auto) NEGATIVE NEGATIVE Urine RBC NONE /HPF Urine WBC 5-10 H /HPF Urine Squamous Epithelial Cells 10-25 H /HPF Urine Crystals NONE /LPF Urine Bacteria FEW H /HPF Urine Casts NONE /LPF Urine Mucus MODERATE H /LPF Urine Culture Indicated YES White Blood Count 7.9 4.3-11.0 10^3/uL Red Blood Count 4.48 4.35-5.85 10^6/uL Hemoglobin 12.2 11.5-16.0 G/DL Hematocrit 36 35-52 % Mean Corpuscular Volume 81 80-99 FL Mean Corpuscular Hemoglobin 27 25-34 PG Mean Corpuscular Hemoglobin Concent 34 32-36 G/DL Red Cell Distribution Width 15.2 H 10.0-14.5 % Platelet Count 259 130-400 10^3/uL Mean Platelet Volume 10.4 7.4-10.4 FL Neutrophils (%) (Auto) 62 42-75 % Lymphocytes (%) (Auto) 28 12-44 % Monocytes (%) (Auto) 5 0-12 % Eosinophils (%) (Auto) 4 0-10 % Basophils (%) (Auto) 0 0-10 % Neutrophils # (Auto) 4.9 1.8-7.8 X 10^3 Lymphocytes # (Auto) 2.2 1.0-4.0 X 10^3 Monocytes # (Auto) 0.4 0.0-1.0 X 10^3 Eosinophils # (Auto) 0.3 0.0-0.3 10^3/uL Basophils # (Auto) 0.0 0.0-0.1 10^3/uL Sodium Level 137 135-145 MMOL/L Potassium Level 4.6 3.6-5.0 MMOL/L Chloride Level 110 H 98-107 MMOL/L Carbon Dioxide Level 19 L 21-32 MMOL/L Anion Gap 8 5-14 MMOL/L Blood Urea Nitrogen 11 7-18 MG/DL Creatinine 0.67 0.60-1.30 MG/DL Estimat Glomerular Filtration Rate > 60 BUN/Creatinine Ratio 16 Glucose Level 87 70-105 MG/DL Calcium Level 8.7 8.5-10.1 MG/DL Corrected Calcium 9.2 8.5-10.1 MG/DL Magnesium Level 1.9 1.8-2.4 MG/DL Total Bilirubin 0.7 0.1-1.0 MG/DL Aspartate Amino Transf (AST/SGOT) 26 5-34 U/L Alanine Aminotransferase (ALT/SGPT) 25 0-55 U/L Alkaline Phosphatase 79 40-136 U/L C-Reactive Protein High Sensitivity 0.78 H 0.00-0.50 MG/DL Total Protein 6.4 6.4-8.2 GM/DL Albumin 3.4 3.2-4.5 GM/DL My Orders Orders - MAO HOGAN Ua Culture If Indicated (06/10/18 13:45) Urine Bedside (06/10/18 13:45) Cbc With Automated Diff (06/10/18 14:02) Comprehensive Metabolic Panel (06/10/18 14:02) Hs C Reactive Protein (06/10/18 14:02) Magnesium (06/10/18 14:02) Saline Lock/Iv-Start (06/10/18 14:02) Ns Iv 1000 Ml (Sodium Chloride 0.9%) (06/10/18 14:02) Urine Culture (06/10/18 13:47) Ketorolac Injection (Toradol Injection) (06/10/18 15:15) Medications Given in ED Current Medications Medications Dose Ordered Sig/Rosina Route Start Time Stop Time Status Last Admin Dose Admin Ketorolac Tromethamine 15 mg ONCE ONCE IVP 06/10/18 15:15 06/10/18 15:16 DC 06/10/18 15:44 15 MG Vital Signs/I&O 06/10/18 13:49 Temp 98.3 Pulse 80 Resp 20 B/P (MAP) 147/89 (108) Pulse Ox 99 O2 Delivery Room Air Blood Pressure Mean: 108 Urine -Bedside: Negative Progress Progress Note #1: Time: 14:28 Progress Note The patient's recent gastric sleeve and mildly dehydrated appearance as well as her cellulitic features of her leg related to some labs and try rehydrating her with a 10 cc/kg fluid bolus. We'll get some urine but it appears to be contaminated. She's recently been on Bactrim. We'll culture it and see what it shows. We also discussed outpatient continuing another 7 days of Bactrim DS and mupirocin topical for her cellulitis that she doesn't qualify for inpatient therapy. Progress Note #2: Time: 15:53 Progress Note Nausea has improved and she's feeling much better but she has a headache so we gave her some Toradol. We'll let her go home up she gets all of her IV fluids done to use her Zofran and keep her follow-up appointment. Departure Impression Primary Impression: EXACERBATION OF CHRONIC LEG CELLULITIS Disposition: 01 HOME, SELF-CARE Condition: Improved Departure-Patient Inst. Decision time for Depature: 16:23 Referrals: [facility] (PCP) Primary Care Physician CAROLYNE STARR MD (Family) Primary Care Physician Patient Instructions: Cellulitis (Skin Infection), Adult (DC) Add. Discharge Instructions: Take the Bactrim one tablet twice a day for the next week as well as use bacitracin ointment twice a day a light thin sheen to the left lower leg. Keep your follow-up appointment on the . Return to the ER to begin to have fever above 102.5, chest pain, intractable nausea vomiting and dehydration or other concerning features. Use your Zofran 1 tablet every 6 hours as needed for nausea. All discharge instructions reviewed with patient and/or family. Voiced understanding. Scripts Sulfamethoxazole/Trimethoprim (Bactrim Ds Tablet) 1 Each Tablet 1 EACH PO BID for 7 Days, #14 TAB 0 Refills Prov: MAO HOGAN 06/10/18 Bacitracin (Bacitracin) 28.4 Gm Oint...g. 1 GM TP BID for 10 Days, #1 TUBE 0 Refills Prov: MAO HOGAN 06/10/18 Copy Copies To 1: LONDON MAXWELL DO MAO HOGAN Jun 10, 2018 14:12
[2018-06-10 14:50] LABS: BASOPHILS % (AUTO) 0 % (0-10); EOSINOPHILS # (AUTO) 0.3 10^3/uL (0.0-0.3); EOSINOPHILS % (AUTO) 4 % (0-10); HEMATOCRIT 36 % (35-52); HEMOGLOBIN 12.2 G/DL (11.5-16.0); LYMPHOCYTES # (AUTO) 2.2 X 10^3 (1.0-4.0); LYMPHOCYTES % (AUTO) 28 % (12-44); MEAN CORPUSCULAR HEMOGLOBIN 27 PG (25-34); MEAN CORPUSCULAR HGB CONC 34 G/DL (32-36); MEAN CORPUSCULAR VOLUME 81 FL (80-99); MEAN PLATELET VOLUME 10.4 FL (7.4-10.4); MONOCYTES # (AUTO) 0.4 X 10^3 (0.0-1.0); MONOCYTES % (AUTO) 5 % (0-12); NEUTROPHILS # (AUTO) 4.9 X 10^3 (1.8-7.8); NEUTROPHILS % (AUTO) 62 % (42-75); PLATELET COUNT 259 10^3/uL (130-400); RED BLOOD COUNT 4.48 10^6/uL (4.35-5.85); RED CELL DISTRIBUTION WIDTH 15.2 % (10.0-14.5); WHITE BLOOD COUNT 7.9 10^3/uL (4.3-11.0)
[2018-06-10 15:12] LABS: ALANINE AMINOTRANSFERASE 25 U/L (0-55); ALBUMIN 3.4 GM/DL (3.2-4.5); ALKALINE PHOSPHATASE 79 U/L (40-136); BILIRUBIN,TOTAL 0.7 MG/DL (0.1-1.0); BUN/CREATININE RATIO 16; CALCIUM 8.7 MG/DL (8.5-10.1); CARBON DIOXIDE 19 MMOL/L (21-32); CHLORIDE 110 MMOL/L (98-107); CREATININE SERUM 0.67 MG/DL (0.60-1.30); GFR ESTIMATED > 60; GLUCOSE 87 MG/DL (70-105); MAGNESIUM 1.9 MG/DL (1.8-2.4); POTASSIUM 4.6 MMOL/L (3.6-5.0); SODIUM 137 MMOL/L (135-145); TOTAL PROTEIN 6.4 GM/DL (6.4-8.2)
[2018-06-10] MEDS ORDERED: KETOROLAC 30 MG/ML VIAL IVP ONE (15:15)
[2018-06-10] MEDS ORDERED: SULF1TAB35 PO (16:27)
[2018-06-10] MEDS ORDERED: BACI28.4 TP (16:27)
[2018-06-10 16:36] VITALS: BP 129/95
== END 2018-06-10 16:36 | disposition home or self-care (01) ==
LOC: EDUNIT# 13:44 → ER 13:45
DX: L03.116 Cellulitis of left lower limb (principal); I10 Essential (primary) hypertension; E66.01 Morbid (severe) obesity due to excess calories; E11.9 Type 2 diabetes mellitus without complications; F41.9 Anxiety disorder, unspecified; F90.9 Attention-deficit hyperactivity disorder, unspecified type; F31.9 Bipolar disorder, unspecified; F20.9 Schizophrenia, unspecified; Z82.49 Family history of ischemic heart disease and other diseases of the circulatory system; Z68.43 Body mass index [BMI] 50.0-59.9, adult; Z91.5 Personal history of self-harm; Z87.19 Personal history of other diseases of the digestive system; Z87.442 Personal history of urinary calculi; Z79.51 Long term (current) use of inhaled steroids; Z98.84 Bariatric surgery status; Z86.14 Personal history of Methicillin resistant Staphylococcus aureus infection; Z87.891 Personal history of nicotine dependence; Z96.22 Myringotomy tube(s) status; Z98.51 Tubal ligation status; Z90.89 Acquired absence of other organs
CPT/HCPCS: 36415; 80053; 81000; 83735; 84703; 85025; 86141; 87088

== ENCOUNTER 2018-10-07 13:00 | Emergency (ER) | payer OTHER, MEDICAID ==
[~2018-10-07] VITALS: Ht 167.6 cm; Wt 108.9 kg
[~2018-10-07 13:00] MED LIST changes: +BACI28.4 TP
[2018-10-07 13:41] LABS: BASOPHILS % (AUTO) 0 % (0-10); EOSINOPHILS # (AUTO) 0.4 10^3/uL (0.0-0.3); EOSINOPHILS % (AUTO) 6 % (0-10); HEMATOCRIT 41 % (35-52); HEMOGLOBIN 13.3 G/DL (11.5-16.0); LYMPHOCYTES # (AUTO) 2.3 X 10^3 (1.0-4.0); LYMPHOCYTES % (AUTO) 37 % (12-44); MEAN CORPUSCULAR HEMOGLOBIN 26 PG (25-34); MEAN CORPUSCULAR HGB CONC 33 G/DL (32-36); MEAN CORPUSCULAR VOLUME 80 FL (80-99); MEAN PLATELET VOLUME 9.6 FL (7.4-10.4); MONOCYTES # (AUTO) 0.3 X 10^3 (0.0-1.0); MONOCYTES % (AUTO) 5 % (0-12); NEUTROPHILS # (AUTO) 3.3 X 10^3 (1.8-7.8); NEUTROPHILS % (AUTO) 53 % (42-75); PLATELET COUNT 319 10^3/uL (130-400); RED BLOOD COUNT 5.08 10^6/uL (4.35-5.85); RED CELL DISTRIBUTION WIDTH 13.9 % (10.0-14.5); WHITE BLOOD COUNT 6.2 10^3/uL (4.3-11.0)
[2018-10-07 13:47] LABS: CLARITY,URINE SLIGHTLY CLOUDY; COLOR,URINE AMBER; GLUCOSE, URINE (UA) NEGATIVE (NEGATIVE); KETONES,URINE 1+ (NEGATIVE); LEUKOCYTE ESTERASE ,URINE 3+ (NEGATIVE); NITRITE,URINE NEGATIVE (NEGATIVE); PH,URINE 5 (5-9); PROTEIN,URINE 2+ (NEGATIVE); UROBILINOGEN,URINE 4 MG/DL (NORMAL)
--- NOTE | 2018-10-07 13:47 | ED Integumentary General ---
General Chief Complaint: Skin/Wound Problems Stated Complaint: LEG INFECTION;SWELLING/DRAINING Nursing Triage Note: PT PRESENTS TO ED WITH COMPLAINT OF BILATERAL LEG SWELLING AND DRAINAGE. PT STATES SHE HAS A SKIN CONDITION THAT CAUSES SORES ON HER LEGS BUT THEY ONLY DRAIN WHEN THERE IS AN INFECTION. PT WENT TO WALK IN CLINIC ON FRIDAY AND WAS DIAGNOSED WITH UTI AND EAR INFECTION AND HAS BEEN ON ANTIBIOTICS FOR THIS. PT HAS ATTEMPTED TO GET APPOINTMENT WITH PCP BUT EARLIEST SHE CAN GET IN IS 2 WEEKS. Source: patient Exam Limitations: no limitations History of Present Illness Date Seen by Provider: Oct 07, 2018 Time Seen by Provider: 13:42 Initial Comments To ER per private vehicle with reports of sores on both legs. She has Karatosis follicularis and chronic thickening of skin and plaquing to both lower extremities with intermittent episodes of infection. She states that on Friday, 4-5 days ago she developed draining wounds, burning pain and increased swelling. She states typically this indicates infection. She was seen by [facility] on Friday and was given Keflex. She was also diagnosed with an ear infection and urinary tract infection. Today, she reports fever up to 101 , increasing pain in the legs, left ear pain, runny nose, productive cough, sore throat, urinary frequency and sores on the legs. Timing/Duration: constant, getting worse Severity: moderate Location: extremities Associated Symptoms: change in skin texture Allergies and Home Medications Allergies Coded Allergies: NKANo Known Allergies (Verified Allergy, Mild, 02/08/17) Home Medications Acetaminophen 500 Mg Tablet, 1,000 MG PO Q6H PRN for PAIN-MILD, (Reported) Albuterol Sulfate 1 Puff Puff, 2 PUFF IH Q4H PRN for SHORTNESS OF BREATH, ( Reported) 1 PUFF = 90 MCG Albuterol Sulfate 2.5 Mg/3 Ml Vial.neb, 2.5 MG NEB Q4H PRN for SHORTNESS OF BREATH, (Reported) Bacitracin 28.4 Gm Oint...g., 1 GM TP BID Prescribed by: MAO HOGAN on 06/10/18 1627 Clobetasol Propionate 15 Gm Oint...g., TP BID, (Reported) 0.05% Doxycycline Monohydrate 100 Mg Tablet, 100 MG PO BID WITH MEALS Prescribed by: WILL NUNEZ on 01/06/18 1515 Hydrocodone/Acetaminophen 1 Each Tablet, 1 EACH PO Q6H PRN for PAIN-MODERATE TO SEVERE Prescribed by: WILL NUNEZ on 01/06/18 1515 L.acidoph & Paracasei,B.lactis 1 Each Capsule, 1 CAP PO DAILY PRN for STOMACH UPSET, (Reported) Loperamide HCl 2 Mg Tablet, PO UD PRN for DIARRHEA, (Reported) Mafenide Acetate 56.7 Gm Cream..g., 56.7 GM TP TID Prescribed by: WILL NUNEZ on 01/06/18 151 Sulfamethoxazole/Trimethoprim 1 Each Tablet, 1 EACH PO BID Prescribed by: MAO HOGAN on 06/10/18 1627 Topiramate 50 Mg Tablet, 50 MG PO BID, (Reported) Patient Home Medication List Home Medication List Reviewed: Yes Review of Systems Review of Systems Constitutional: see HPI, chills, fever EENTM: see HPI, nose congestion, throat pain Respiratory: see HPI, cough Cardiovascular: no symptoms reported Genitourinary: no symptoms reported Musculoskeletal: no symptoms reported Skin: see HPI, lesions Psychiatric/Neurological: No Symptoms Reported Past Vhweemh-Hjhwrj-Gwbgjb Hx Patient Social History Alcohol Use: Rarely Uses Number of Drinks Today: II Alcohol Beverage of Choice: Other Recreational Drug Use: Yes (HISTORY OF ILLICIT DRUG USE) Drug of Choice: denies Smoking Status: Former Smoker Type Used: Cigarettes 2nd Hand Smoke Exposure: Yes Recent Foreign Travel: No Contact w/Someone Who Travel: No Recent Infectious Disease Expo: No Recent Hopitalizations: No Immunizations Up To Date Tetanus Booster (TDap): Unknown PED Vaccines UTD: No Date of Pneumonia Vaccine: Jun 15, 2011 Date of Influenza Vaccine: Sep 16, 2015 Seasonal Allergies Seasonal Allergies: No Past Medical History Surgeries: Yes (EGD, L MASTOIDECTOMY, R MYRINGOTOMY TUBE, BTL REVERSAL) Appendectomy, Ear Surgery, Gallbladder, Tubal Ligation Respiratory: Yes Chronic Bronchitis, Sleep Apnea Currently Using CPAP: Yes (PT REPORTS "DOSEN'T WEAR VERY OFTEN") Currently Using BIPAP: No Cardiac: Yes (-INDUCED HTN) Hypertension Neurological: Yes 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 Disorders: No 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 Sexually Transmitted Disease: No HIV/AIDS: No Genitourinary: Yes Kidney Stones, UTI-Chronic Gastrointestinal: Yes Diverticulosis, Gall Bladder Disease, Irritable Bowel Musculoskeletal: Yes (CHRONIC GENERALIZED PAIN ) Degenerate Disk Disease, Arthritis, Fibromyalgia, Chronic Back Pain Endocrine: Yes (MORBID OBESITY) Diabetes, Non-Insulin dep HEENT: Yes (MASTOIDITIS) Chronic Ear Infection Loss of Vision: Denies Hearing Impairment: Hard of Hearing Cancer: No Psychosocial: Yes (PSYCHOSIS, SOCIAL ANXIETY DISORDER) ADD/ADHD, Anxiety, Suicide Attempts, Bipolar, Personality Disorder, Schizophrenia, Depression Integumentary: Yes (DARIER'S DISEASE. CHRONIC LEG CELLULITIS--MRSA) Recent Skin Changes Blood Disorders: No Adverse Reaction/Blood Tranf: No Family Medical History Cancer Chest pain 03 FATHER, Onset:Unknown UNCLE, Onset:Unknown Congestive heart failure Depression 03 MOTHER Depresso Family history: Allergy 09 BROTHER, Onset:Unknown Family history: Arthritis 03 FATHER, Onset:Unknown 03 MOTHER, Onset:Unknown Family history: Asthma 03 FATHER, Onset:Unknown UNCLE, Onset:Unknown Family history: Diabetes mellitus Family history: Thyroid disorder 09 SISTER, Onset:Unknown Headache 03 MOTHER, Onset:Unknown Heart disease Hereditary disease 03 FATHER, Onset:Unknown 09 BROTHER, Onset:Unknown UNCLE, Onset:Unknown History of - respiratory disease 03 FATHER, Onset:Unknown UNCLE, Onset:Unknown Myocardial infarction Psychotic disorder 09 BROTHER, Onset:Unknown No Family History of: Abdominal aortic aneurysm [place]'s disease Alcoholism Aphasia Aphasia Cancer of colon Cataract Congenital heart disease Cystic fibrosis Dementia Dysphagia Family history: Alzheimer's disease Family history: Breast disease Family history: Cardiovascular disease Family history: Coronary thrombosis Family history: Gastrointestinal disease Family history: Glaucoma Family history: Hypertension Family history: Osteoporosis Hearing loss History of - anemia History of drug abuse Human immunodeficiency virus (HIV) seropositivity Hypercholesterolemia Infertile Kidney disease Malignant neoplasm of lung Parkinson's disease Prostate cancer Seizure disorder Stroke Tuberculosis Visual impairment Other Conditions/Hx MORBID OBESITY MULTIPLE ADMITS AND VISITS Physical Exam Vital Signs Vital Signs - First Documented 10/07/18 13:04 Temp 97.0 Pulse 76 Resp 12 B/P (MAP) 135/81 (99) Pulse Ox 99 Capillary Refill : Less Than 3 Seconds General Appearance: WD/WN, no apparent distress HEENT: PERRL/EOMI, normal ENT inspection, other (the left tympanic membrane is bulging but without erythema. Does have air-fluid levels behind it consistent with serous otitis.) Neck: non-tender, full range of motion Respiratory: no respiratory distress, no accessory muscle use Gastrointestinal: normal bowel sounds, non tender Extremities: normal range of motion, non-tender Neurologic/Psychiatric: alert, normal mood/affect, oriented x 3 Skin: normal color, warm/dry Skin Problem Location: lower extremities Skin Problem Character: other (draining ulcers to the anterior distal lower legs. There is plaquing, crusting circumferentially around the lower legs bilaterally. Minimal erythema surrounding the areas of draining wounds.) Progress/Results/Core Measures Results/Orders Lab Results Laboratory Tests Test 10/07/18 13:30 10/07/18 13:41 Range/Units White Blood Count 6.2 4.3-11.0 10^3/uL Red Blood Count 5.08 4.35-5.85 10^6/uL Hemoglobin 13.3 11.5-16.0 G/DL Hematocrit 41 35-52 % Mean Corpuscular Volume 80 80-99 FL Mean Corpuscular Hemoglobin 26 25-34 PG Mean Corpuscular Hemoglobin Concent 33 32-36 G/DL Red Cell Distribution Width 13.9 10.0-14.5 % Platelet Count 319 130-400 10^3/uL Mean Platelet Volume 9.6 7.4-10.4 FL Neutrophils (%) (Auto) 53 42-75 % Lymphocytes (%) (Auto) 37 12-44 % Monocytes (%) (Auto) 5 0-12 % Eosinophils (%) (Auto) 6 0-10 % Basophils (%) (Auto) 0 0-10 % Neutrophils # (Auto) 3.3 1.8-7.8 X 10^3 Lymphocytes # (Auto) 2.3 1.0-4.0 X 10^3 Monocytes # (Auto) 0.3 0.0-1.0 X 10^3 Eosinophils # (Auto) 0.4 H 0.0-0.3 10^3/uL Basophils # (Auto) 0.0 0.0-0.1 10^3/uL Sodium Level 140 135-145 MMOL/L Potassium Level 3.7 3.6-5.0 MMOL/L Chloride Level 108 H 98-107 MMOL/L Carbon Dioxide Level 25 21-32 MMOL/L Anion Gap 7 5-14 MMOL/L Blood Urea Nitrogen 15 7-18 MG/DL Creatinine 0.74 0.60-1.30 MG/DL Estimat Glomerular Filtration Rate > 60 BUN/Creatinine Ratio 20 Glucose Level 88 70-105 MG/DL Lactic Acid Level 0.76 0.50-2.00 MMOL/L Calcium Level 9.0 8.5-10.1 MG/DL Corrected Calcium 9.1 8.5-10.1 MG/DL Total Bilirubin 0.7 0.1-1.0 MG/DL Aspartate Amino Transf (AST/SGOT) 20 5-34 U/L Alanine Aminotransferase (ALT/SGPT) 9 0-55 U/L Alkaline Phosphatase 106 40-136 U/L Total Protein 7.3 6.4-8.2 GM/DL Albumin 3.9 3.2-4.5 GM/DL Urine Test NEGATIVE NEGATIVE My Orders Orders - DELANEY GARZA APRN Cbc With Automated Diff (10/07/18 13:34) Comprehensive Metabolic Panel (10/07/18 13:34) Hcg,Qualitative Urine (10/07/18 13:34) Ua Culture If Indicated (10/07/18 13:34) Iv Heplock-Insert (Order) (10/07/18 13:34) Blood Culture (10/07/18 13:34) Lactic Acid Analyzer (10/07/18 13:34) Wound Culture (10/07/18 13:34) Vital Signs/I&O 10/07/18 13:04 Temp 97.0 Pulse 76 Resp 12 B/P (MAP) 135/81 (99) Pulse Ox 99 Blood Pressure Mean: 99 Departure Impression Primary Impression: Keratosis follicularis Additional Impression: Secondary infection of skin Disposition: 01 HOME, SELF-CARE Condition: Stable Departure-Patient Inst. Decision time for Depature: 13:59 Referrals: [facility]/ (PCP) Primary Care Physician CAROLYNE STARR MD (Family) Primary Care Physician Patient Instructions: Wound Care (DC) Add. Discharge Instructions: 1. Antibiotics as directed 2. Continue the Keflex and add the Bactrim. Follow-up with your doctor later next week. All discharge instructions reviewed with patient and/or family. Voiced understanding. Scripts Sulfamethoxazole/Trimethoprim (Bactrim Ds Tablet) 1 Each Tablet 1 EACH PO BID, #14 TAB Prov: DELANEY GARZA APRN 10/07/18 DELANEY GARZA APRN Oct 07, 2018 13:47
[2018-10-07 13:57] LABS: ALANINE AMINOTRANSFERASE 9 U/L (0-55); ALBUMIN 3.9 GM/DL (3.2-4.5); ALKALINE PHOSPHATASE 106 U/L (40-136); BILIRUBIN,TOTAL 0.7 MG/DL (0.1-1.0); BUN/CREATININE RATIO 20; CARBON DIOXIDE 25 MMOL/L (21-32); CHLORIDE 108 MMOL/L (98-107); CREATININE SERUM 0.74 MG/DL (0.60-1.30); GFR ESTIMATED > 60; GLUCOSE 88 MG/DL (70-105); POTASSIUM 3.7 MMOL/L (3.6-5.0); SODIUM 140 MMOL/L (135-145); TOTAL PROTEIN 7.3 GM/DL (6.4-8.2)
[2018-10-07] MEDS ORDERED: SULF1TAB35 PO (14:00)
[2018-10-07 14:02] LABS: BACTERIA,URINE MODERATE /HPF; RBC,URINE >100 /HPF; WBC,URINE 25-50 /HPF
[2018-10-07] MEDS ORDERED: cefTRIAXone FOR IV USE 1,000 MG in NS (IVPB) 50 ML IV ONE (14:15)
[2018-10-07 14:48] LABS: BILIRUBIN,URINE 1+ (NEGATIVE)
--- NOTE | 2018-10-07 14:48 | NUR ---
PATIENT HAD ARM BENT IV NOT DRIPPING ARM REPOSTIONED
[2018-10-07 14:55] VITALS: BP 138/90
--- OUTSIDE RECORDS SUMMARY | 2018-10-07 15:53 | XMS REPORT ---
Author Author CAROLYNE STARR Organization [facility] Address [address] [place] [address] Care Team Providers Care Plant Superintendent Name Role Phone CAROLYNE STARR Unavailable PROBLEMS Type Condition ICD9-CM Code LFF13-YG Code Onset Dates Condition Status SNOMED Code Problem Mild intermittent asthma without complication J45.20 Active 971641433 Problem Venous insufficiency I87.2 Active 41553719 Problem Morbid obesity E66.01 Active 137688272 Problem BMI 50.0-59.9, adult Z68.43 Active 653798699 Problem Bipolar affective disorder, currently depressed, mild F31.31 Active 387814168 Problem Methamphetamine use disorder, severe, 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 Active 28489074 Problem Cervical disc disease M50.90 Active 510630649 Problem Alcohol use disorder, mild, abuse F10.10 Active 70566806 Problem Cocaine use disorder, severe, 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 Active 36000401 Problem Bipolar disorder with severe depression F31.4 Active 742210058 Problem Pain in left shoulder M25.512 Active 65176177 Problem 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 797597577 Problem Sleep apnea G47.30 Active 59610348 Problem Cervical radiculopathy M54.12 Active 41734117 ALLERGIES No Known Allergies ENCOUNTERS Encounter Location Date Diagnosis [facility] [id number] [address] 11 Jun, 2018 [facility] [id number] [address] 13 May, 2018 Bronchitis J40 ; Cellulitis of left lower extremity L03.116 and BMI 45.0-49.9, adult Z68.42 [facility] [address] [facility] [id number] [address] 30 Apr, 2018 Cellulitis of left lower extremity L03.116 and BMI 45.0-49.9 , adult Z68.42 [address] [address] [address] Apr, Cellulitis of left lower extremity L03.116 [place] [address] [place] [address] 42971- 3335 Apr, Cellulitis of left lower extremity L03.116 [place] [id number] [place] [address] 71354- 2304 Mar, [place] [id number] [place] [address] 64217- 8854 Mar, [place] [id number] [place] [address] 76974- 1980 Mar, Cellulitis of left lower limb L03.116 ; BMI 50.0-59.9, adult Z68.43 and Acute nasopharyngitis J00 [address] [id number] [place] [address] 99710- 2609 Feb, Non-intractable vomiting with nausea, unspecified vomiting type R11.2 ; 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 ; Venous insufficiency I87.2 and BMI 50.0-59.9 , adult Z68.43 [place] [address] [place] [address] 00991- 8567 Feb, Cellulitis of left lower extremity L03.116 and BMI 50.0-59.9 , adult Z68.43 [place] [address] [address] 4405 Feb, [place] [address] [place] [address] 18249- 6834 January, [place] [id number] [place] [address] 27656- 9317 January, Medicare annual wellness visit, initial Z00.00 ; Morbid obesity E66.01 ; Mild intermittent asthma without complication J45.20 ; Bipolar disorder with severe depression F31.4 ; 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 ; Venous insufficiency I87.2 and Encounter for immunization Z23 [facility] [address] [address]- 6337 January, [place] [address] 59[address]- 9630 January, Cellulitis of left lower extremity L03.116 and BMI 50.0-59.9 , adult Z68.43 [place] [address] 91237- 9142 Dec, Non-pressure chronic ulcer of left calf, 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 ; History of cellulitis Z87.2 and BMI 50.0-59.9, adult Z68.43 [facility] [id number] [place] [address] 09453 -1368 Dec, Cloudy urine R82.90 ; Cellulitis of lower extremity, unspecified laterality L03.119 and BMI 50.0-59.9, adult Z68.43 [place] [id number] [place] [address] 90068- 4607 Nov, Sleep apnea G47.[address] [address]- 5816 08 Nov, 2017 Bipolar affective disorder, currently depressed, mild F31.31 ; Methamphetamine use disorder, severe, 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 ; Cocaine use disorder, severe, 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 ; Alcohol use disorder, mild, abuse F10.10 and BMI 50.0-59.9, adult Z68.43 [place] [id number] [place] [address] 52506- 7457 Oct, BMI 50.0-59.9, adult Z68.43 ; Bipolar affective disorder, currently depressed, mild F31.31 ; Methamphetamine use disorder, severe, 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 ; Cocaine use disorder, severe, 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 and Alcohol use disorder, mild, abuse F10.10 [place] [address] 90911- 5119 14 Oct, 2017 [facility] [address] [place] [address] 34931- 7091 Oct, BMI 50.0-59.9, adult Z68.43 ; 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 and Morbid obesity E66.01 [facility] [address] [place] [address] 67308 -3988 Sep, Acute suppurative otitis media of right ear without spontaneous rupture of tympanic membrane, recurrence not specified H66.001 and BMI 60.0-69.9, adult Z68.44 [place] [id number] [place] [address] 02215- 8912 Sep, [facility] [id number] [place] [address] 75590- 9252 Aug, Cervical disc disease M50.90 [facility] [id number] [place] [address] 29860- 9254 Aug, [facility] [id number] [place] [address] 94795- 5668 Aug, Mild intermittent asthma without complication J45.20 ; Cervical radiculopathy M54.12 ; Venous insufficiency I87.2 ; Morbid obesity E66.01 and BMI 50.0-59.9, adult Z68.43 [place] [id number] [place] [address] 11554- 0065 Jun, [facility] [id number] [place] [address] 07342- 9610 May, [facility] [id number] [place] [address] 04135- 4619 Apr, [place] [id number] [place] [address] 60332- 5008 Apr, 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 [facility] [id number] [place] [address] [id number] Apr, [place] [id number] [place] [address] 26513- 7884 Apr, 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 [facility] [id number] [place] [address] 42250- 8372 Apr, Cellulitis of left lower extremity L03.116 ; Localized edema R60.0 ; 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 and Bipolar disorder with severe depression F31.4 [place] [id number] [place] [address] 23776- 0215 Apr, Cellulitis of unspecified part of limb L03.119 and 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 [place] [id number] [place] [address] 16567- 7619 Mar, [facility] [id number] [place] [address] 03318 -9820 Mar, Cellulitis of left lower limb L03.116 [place] [id number] [place] [address] 63986- 2015 Mar, 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 and Cellulitis L03.90 [place] [id number] [place] [address] 43665- 4614 Mar, Bronchitis J40 and Cellulitis L03.90 [place] [id number] [place] [address] 67484- 4921 January, [facility] [id number] [place] [address] 07591- 4999 January, [place] [id number] [place] [address] 59708- 3272 Nov, 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 ; Cellulitis L03.90 ; Obese E66.9 ; Pain in left shoulder M25.512 ; Localized edema R60.0 ; Sleep apnea G47.30 ; Anxiety about health F41.8 and Bipolar disorder with severe depression F31.4 [facility] [id number] [place] [address] 81601- 5593 Aug, Obese E66.9 ; 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 ; Sleep apnea G47.30 ; Cellulitis L03.90 ; Cellulitis of unspecified part of limb L03.119 ; Intractable tension-type headache, unspecified chronicity pattern G44.201 ; Concussion, without loss of consciousness, subsequent encounter S06.0X0D and Localized edema R60.0 [address] [address] 68323- 9157 Jun, [place] [address] 97258- 7666 Jun, 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 ; Other chronic pain G89.29 ; Cellulitis of unspecified part of limb L03.119 and Cutaneous abscess of limb, unspecified L02.419 [place] [address] 38691- 5611 Jun, [place] [address] 34407- 3216 May, [place] [address] 95420- 4403 May, [place] [address] 67984- 5810 Apr, Impingement syndrome, shoulder, left M75.42 and SLAP lesion of left shoulder S43.432A [place] [id number] [place] [address] 72731- 3164 Apr, [address] [id number] [place] [address] 15739- 4834 Apr, [place] [address] 18249- 6081 Apr, [place] [id number] [place] [address] 16923- 4329 Apr, Cellulitis L03.90 ; Obese E66.9 ; Pain in left shoulder M25.512 and Edema, unspecified type R60.9 [address] [id number] [place] [address] 27818- 1023 14 Mar, 2016 Obese E66.9 ; Pain in left shoulder M25.512 and Other chronic pain G89.29 [address] [id number] [place] [address] 16506- 1195 Feb, Anxiety about health F41.8 [address] [address] 01917- 4648 Feb, Obese E66.9 ; 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 ; Shortness of breath R06.02 ; Palpitations R00.2 ; Bipolar disorder with severe depression F31.4 and 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 E40 [address] [id number] [place] [address] 15085- 9178 Feb, Bipolar disorder with severe depression F31.4 [place] [address] 25447- 3717 Feb, Injury of left shoulder and upper arm, initial encounter S49.92XA [place] [address] 60673- 5678 January, [place] [address] 68529- 8476 Dec, Bipolar disorder with severe depression F31.4 [place] [address] 40911- 6237 Dec, Obese E66.9 ; 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 ; Sleep apnea G47.30 ; Anxiety about health F41.8 and Bipolar disorder with severe depression F31.4 [address] [address] 95749- 7225 Dec, Bipolar disorder with severe depression F31.4 [place] [id number] [place] [address] 98529- 7931 Dec, Bipolar disorder with severe depression F31.4 and 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 [address] [address]- 6471 30 Nov, 2015 [address] [id number] [place] [address] 50624- 5095 Nov, [address] [place] [place] [address] 84243- 5536 Nov, [address] [id number] [place] [address] 92516- 4823 Nov, [address] [id number] [place] [address] 59258- 4407 Nov, Bipolar disorder with severe depression F31.4 [address] [place] [address] 97232- 6791 17 Nov, 2015 Bipolar disorder with severe depression F31.4 [place] [id number] [place] [address] 92605- 8194 16 Nov, 2015 Anxiety about health F41.8 ; Obese E66.9 ; 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 ; Bipolar disorder with severe depression F31.4 and Family history of obesity Z83.49 [address] [place] [place] [address] 35325- 0305 14 Nov, 2015 [address] [address] [place] [address] 68015- 3795 09 Nov, 2015 Obese E66.9 ; 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 ; Cellulitis L03.90 ; Palpitations R00.2 ; Sleep apnea G47.30 and Shortness of breath R06.02 [address] [id number] [place] [address] 15480- 5252 Sep, UTI (urinary tract infection) N39.0 and Bronchitis J40 [address] [place] [place] [address] 18933- 8656 Sep, [place] [id number] [address]- 8735 Mar, Left carpal tunnel syndrome 354.0 [facility] [id number] [place] [address] 17492- 4612 Feb, Cellulitis 682.9 and Ankle edema 782.3 [facility] [id number] [place] [address] 07105- 8851 Feb, [facility] [id number] [place] [address] 56526- 9848 January, Carpal tunnel syndrome on left 354.0 [facility] [id number] [place] [address] 46008- 1859 January, Shoulder pain, left 719.41 [facility] [id number] [place] [address] 07740- 3159 January, [facility] [id number] [place] [address] 05479- 3913 Dec, [facility] [address] [place] [address] 61105- 4019 Dec, [facility] [id number] [place] [address] 25021- 3673 Oct, [facility] [address] [address]- 2878 Oct, [facility] [address] [place] [address] 52375- 9032 Oct, [facility] [address] 8257 Oct, [facility] [id number]- 0566 Sep, [facility] [address] [address]- 5335 Sep, [facility] [id number] [place] [address] 80661- 3432 Aug, [facility] [place] [facility] [address] [id number] [place] [address]- 6201 Aug, [facility] [place] [facility] [address] [id number] [place] [address]- 4612 Jun, [facility] [place] [facility] [address] [id number] [place] [address]- 0487 Jun, [facility] [place] [facility] [address] [id number] [place] [address]- 6631 May, [facility] [place] [facility] [address] [id number] [place] [address]- 4307 May, [facility] [place] [facility] [address] [id number] [place] [address]- 6733 May, [facility] [place] [facility] [address] [id number] [place] [address]- 5456 May, [facility] [place] [facility] [address] [id number] [place] [address]- 4578 May, [facility] [place] [facility] [address] [id number] [place] [address]- 5537 05 May, 2014 [facility] [place] [facility] [address] [id number] [place] [address]- 2358 Apr, [facility] [place] [facility] [address] [id number] [place] [address]- 5114 Apr, [facility] [place] [facility] [address] [id number] [place] [address]- 9501 Apr, [facility] [place] [facility] [address] [id number] [place] [address]- 4367 Apr, [facility] [place] [facility] [address] [id number] [place] [address]- 7348 Apr, [facility] [place] [facility] [address] [id number] [place] [address]- 6916 Apr, [facility] [place] [facility] [address] [id number] [place] [address]- 0991 Apr, [facility] [place] [facility] [address] [id number] [place] [address]- 7386 Mar, [facility] [place] [facility] [address] [id number] [place] [address]- 9336 Mar, [facility] [place] [facility] [address] [id number] [place] [address]- 6314 Mar, [facility] [place] [facility] [address] [id number] [place] [address]- 9356 Mar, [facility] [place] [facility] [address] [id number] [place] [address]- 4340 Mar, [facility] [place] [facility] [address] [id number] [place] [address]- 8408 Mar, [facility] [place] [facility] [address] [id number] [place] [address]- 8565 Feb, [facility] [place] [facility] [address] [id number] [place] [address]- 6095 Feb, [facility] [place] [facility] [address] [id number] [place] [address]- 1779 Feb, [facility] [place] [facility] [address] [id number] [place] [address]- 8074 Feb, [facility] [place] [facility] [address] [id number] [place] [address]- 5506 January, [facility] [place] [facility] [address] [id number] [place] [address]- 9693 January, [facility] [place] [facility] [address] [id number] [place] [address]- 4228 January, [facility] [place] [facility] [address] [id number] [place] [address]- 4686 January, [facility] [place] [facility] [address] [id number] [place] [address]- 6724 January, [facility] [place] [facility] [address] [id number] [place] [address]- 1241 January, [facility] [place] [facility] [address] [id number] [place] [address]- 6454 January, [facility] [place] [facility] [address] [id number] [place] [address]- 4394 January, [facility] [place] [facility] [address] [id number] [place] [address]- 8907 January, [facility] [place] [facility] [address] [id number] [place] [address]- 9499 January, [facility] [place] [facility] [address] [id number] [place] [address]- 3729 January, [facility] [place] [facility] [address] [id number] [place] [address]- 3505 Dec, [facility] [place] [facility] [address] [id number] [place] [address]- 5107 Dec, [facility] [place] [facility] [address] [id number] [place] [address]- 6810 Dec, [facility] [place] [facility] [address] [id number] [place] [address]- 4380 Dec, [facility] [place] [facility] [address] [id number] [place] [address]- 8125 Nov, [facility] [place] [facility] [address] [id number] [place] [address]- 1487 Nov, [facility] [place] [facility] [address] [id number] [place] [address]- 4221 Oct, [facility] [place] [facility] [address] [id number] [place] [address]- 6464 Oct, [facility] [place] [facility] [address] [id number] [place] [address]- 4558 Oct, [facility] [place] [facility] [address] [id number] [place] [address]- 5055 Oct, [facility] [address] [id number] [place] [address]- 0952 Sep, [facility] [place] [facility] [address] [id number] [place] [address]- 6400 Sep, [facility] [address] [id number] [place] [address]- 6764 Sep, [facility] [address] [id number] [place] [address]- 7584 Sep, [facility] [address] [id number] [place] [address]- 0464 Sep, [facility] [address] [id number] [place] [address]- 3225 Sep, [facility] [address] [id number] [place] [address]- 5062 Aug, [facility] [address] [id number] [place] [address]- 4832 Aug, [facility] [address] [id number] [place] [address]- 0046 Aug, [facility] [address] [id number] [place] [address]- 4143 Aug, [facility] [place] [facility] [address] [id number] [place] [address]- 5340 Aug, [facility] [place] [facility] [address] [id number] [place] [address]- 9914 Aug, [facility] [place] [facility] [address] [id number] [place] [address]- 5020 Aug, [facility] [place] [facility] [address] [id number] [place] 0617 Aug, [facility] [place] [facility] [address] [id number] [place] [address]- 7645 Aug, [facility] [place] [facility] [address] [id number] [place] [address]- 0769 Aug, [facility] [place] [facility] [address] [id number] [place] [address]- 7204 Jul, [facility] [place] [facility] [address] [id number] [place] [address]- 9684 Jul, [facility] [place] [facility] [address] [id number] [place] [address]- 1520 Jul, [facility] [address] [id number] [place] [address]- 3751 Jul, [facility] [place] [facility] [address] [id number] [place] [address] Jun, [facility] [address] [id number] [place] [address] Jun, [facility] [place] [facility] [address] [id number] [place] [address] Jun, [facility] [place] [facility] [address] [id number] [place] [address] Jun, [facility] [place] [facility] [address] [id number] [place] [address] Jun, [facility] [place] [facility] [address] [id number] [place] [address] May, [facility] [place] [facility] [address] [id number] [address] May, [facility] [place] [facility] [address] [id number] [place] [address] Apr, [facility] [place] [facility] [address] [id number] [place] [address] Mar, [facility] [place] [facility] [address] [id number] [place] [address] Mar, [facility] [place] [facility] [address] [id number], [place] [address] 10 Mar, 2013 [facility] [address] [id number] [place] [address] 09 Mar, 2013 [facility] [place] [facility] [address] [id number] [place] [address]- [address] 05 Mar, 2013 [facility] [place] [facility] [address] [id number] [place] [address] Mar, [facility] [place] [facility] [address] [id number] [place] [address] 18 Feb, 2013 [facility] [place] [facility] [address] [id number] [place] [address] 18 Feb, 2013 [facility] [place] [facility] [address] [id number] [place] [address] 16 Feb, 2013 [facility] [place] [facility] [address] [id number] [place] [address] 15 Feb, 2013 [facility] [place] [facility] [address] [id number] [place] [address]- [address] 14 Feb, 2013 [facility] [place] [facility] [address] [id number] [place] [address] Feb, [facility] [place] [facility] [address] [id number] [place] [address] Feb, [facility] [place] [facility] [address] [id number] [place] [address] January, [facility] [place] [facility] [address] [id number] [place] [address] January, [facility] [place] [facility] [address] [id number] [place] [address] Nov, [facility] [place] [facility] [address] [id number] [place] [address] Nov, [facility] [place] [facility] [address] [id number] [place] [address]- [address] Nov, [facility] [place] [facility] [address] [id number] [place] [address] Nov, [facility] [place] [facility] [address] [id number] [place] [address] Oct, [facility] [place] [facility] [address] [id number] [place] [address] Oct, [facility] [place] [facility] [address] [id number] [place] [address] Oct, [facility] [place] [facility] [address] [id number] [place] [address] Sep, [facility] [place] [facility] [address] [id number] [place] [address] Sep, [facility] [place] [facility] [address] [id number] [place] [address] Sep, [facility] [place] [facility] [address] [id number] [place] [address] Sep, [facility] [place] [facility] [address] [id number] [place] [address] Aug, [facility] [place] [facility] [address] [id number] [place] [address] Aug, [facility] [place] [facility] [address] [id number] [place] [address] Jul, [facility] [place] [facility] [address] [id number] [place] [address] Jul, [facility] [place] [facility] [address] [id number] [place] [address] Jun, [facility] [place] [facility] [address] [address] [id number] [place] [address] Jun, [facility] [place] [facility] [address] [id number] [place] [address] Jun, [facility] [place] [facility] [address] [id number] [place] [address] Jun, [facility] [place] [facility] [address] [id number] [place] [address] Jun, [facility] [place] [facility] [address] [id number] [place] [address] Jun, [facility] [place] [facility] [address] [id number] [place] [address] Jun, [facility] [place] [facility] [address] [id number] [place] [address] Jun, [facility] [place] [facility] [address] [id number] [place] [address] Jun, [facility] [place] [facility] [address] [id number] [place] [address] Jun, [facility] [place] [facility] [address] [id number] [place] [address] Jun, [facility] [place] [facility] [address] [id number], [place] [address] Jun, [facility] [place] [facility] [address] [id number], [place] [address] Jun, [facility] [place] [facility] [address] [id number][place] [address] Jun, [facility] [place] [facility] [address] [id number], [place] [address] Jun, [facility] [place] [facility] [address] [id number], [place] [address] Jun, [facility] [place] [facility] [address] [id number][place] [address] 29 May, 2012 [facility] [place] [facility] [address] [id number][place] [address] May, [facility] [place] [facility] [address] [id number] [address] May, [facility] [place] [facility] [address] [id number] [place] [address] May, [facility] [place] [facility] [address] [id number] [place] [address] May, [facility] [place] [facility] [address] [id number] [place] [address] Mar, [facility] [place] [facility] [address] [id number] [place] [address] Mar, [facility] [place] [facility] [address] [id number] [place] [address] Mar, [facility] [place] [facility] [address] [id number] [place] [address] Mar, [facility] [place] [facility] [address] [id number] [place] [address] Mar, [facility] [place] [facility] [address] [id number] [place] [address] Mar, [facility] [place] [facility] [address] [id number] [place] [address] Feb, [facility] [place] [facility] [address] [id number] [place] [address] Feb, [facility] [place] [facility] [address] [id number] [place] [address] Feb, [facility] [place] [facility] [address] [id number] [place] [address] Feb, [facility] [place] [facility] [address] [id number] [place] [address] Feb, [facility] [place] [facility] [address] [id number] [place] [address] January, [facility] [place] [facility] [address] [id number] [place] [address] Dec, [facility] [place] [facility] [address] [id number] [place] [address] Dec, [facility] [address] [id number], [place] [address] Dec, [facility] [address] [id number], [place] [address] Dec, [facility] [address] [id number], [place] [address] Dec, [facility] [address] [id number], [place] [address] Nov, [facility] [address] [id number], [place] [address] 2018 Oct, [facility] [address] [id number], [place] [address] Sep, [facility] [address] [facility] [id number], [place] [address] Aug, [facility] [address] [facility] [id number], [place] [address] Jul, [facility] [address] [facility] [id number], [place] [address] Jul, [facility] [address] [facility] [id number][place] [address] Jul, [facility] [address] [facility] [id number], [place] [address] Apr, [facility] [address] [facility] [id number], [place] [address] Apr, [facility] [address] [facility] [id number][place] [address] Apr, [facility] [address] [facility] [id number][place] [address] January, IMMUNIZATIONS No Known Immunizations SOCIAL HISTORY Never Assessed REASON FOR VISIT Congestion, sore throat, ear pain and n/v/d. SB Gonsalez, Follow up for cellulitis and MRSA. PLAN OF CARE Activity Details Follow Up 1 Week Reason: VITAL SIGNS Height 65 in 2018-05-28 Weight 275.9 lbs 2018-05-28 Temperature 98.9 degrees Fahrenheit 2018-05-28 Heart Rate 80 bpm 2018-05-28 Respiratory Rate 22 2018-05-28 BMI 45.91 kg/m2 2018-05-28 Blood pressure systolic 124 mmHg 2018-05-28 Blood pressure diastolic 80 mmHg 2018-05-28 MEDICATIONS Medication Instructions Dosage Frequency Start Date End Date Duration Status Silvadene 1 % Externally TID PRN 1 application to affected area January, Active Promethazine HCl 25 MG Orally every 6 hrs 1 tablet as needed 6h 13 May, 2018 May, 3 days Active Bactrim DS 800-160 MG Orally Twice a day 2 tablets 12h Apr, Active Topamax Sprinkle 25 MG Orally. may swallow whole or open and sprinle on food and swallow immediately. 2 times a day 2 capsules 12h January, 30 day (s) Not-Taking PredniSONE 50 mg Orally Once a day 1 tablet 24h May, May, 5 days Active RESULTS No Results PROCEDURES No Known procedures INSTRUCTIONS MEDICATIONS ADMINISTERED No Known Medications MEDICAL (GENERAL) HISTORY Type Description Date Medical History headache Medical History chronic pain (knees, back, hands) Medical History fibromyalgia Medical History sleep apnea Medical History anxiety Medical History bipolar disorder Medical History sciatica Medical History obesity Medical History keratitis follicularis (Darier's Disease) Medical History cellulitis Medical History possible MRSA infection Surgical History Mastoidectomy left ear Surgical History tubal ligation Surgical History appendectomy Surgical History cholecystectomy Surgical History myringotomy with ventilating tube Surgical History Gastic sleeve placement Hospitalization History overdose-inpatient treatment 1997 Hospitalization History overdose (prozac, lithium, klonopin)-inpatient treatment; total inpatient treatment 10-11 times. 2010 Hospitalization History bronchitis 09-15-2015 Hospitalization History bronchitis ER visit -04/15-06-30 Hospitalization History Celluliti BLE-[facility] 02/08/17 Hospitalization History Cellulitis-H 04/22/17 Hospitalization History cellulitis-[facility] December 2017
--- OUTSIDE RECORDS SUMMARY | 2018-10-07 15:54 | XMS REPORT ---
Author Author MARIAN RICKETTS Organization [facility] Address [address] [place] [address] Care Team Providers Care Slitter Cut Off Operator Name Role Phone MARIAN RICKETTS Unavailable PROBLEMS Type Condition ICD9-CM Code GPE75-PY Code Onset Dates Condition Status SNOMED Code Problem Mild intermittent asthma without complication J45.20 Active 834533798 Problem Venous insufficiency I87.2 Active 09593027 Problem Morbid obesity E66.01 Active 823110442 Problem BMI 50.0-59.9, adult Z68.43 Active 983416285 Problem Bipolar affective disorder, currently depressed, mild F31.31 Active 424799903 Problem Methamphetamine use disorder, severe, 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 Active 94013199 Problem Cervical disc disease M50.90 Active 101334883 Problem Alcohol use disorder, mild, abuse F10.10 Active 20094483 Problem Cocaine use disorder, severe, 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 Active 38272354 Problem Bipolar disorder with severe depression F31.4 Active 552982242 Problem Pain in left shoulder M25.512 Active 49708534 Problem 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 973144808 Problem Sleep apnea G47.30 Active 29629767 Problem Cervical radiculopathy M54.12 Active 44561980 ALLERGIES No Known Allergies ENCOUNTERS Encounter Location Date Diagnosis [facility] [address] [id number] [address] 11 Jun, 2018 [facility] [address] [facility] [id number] [address] 13 May, 2018 Bronchitis J40 ; Cellulitis of left lower extremity L03.116 and BMI 45.0-49.9, adult Z68.42 [facility] [address] [facility] [id number] [address] 30 Apr, 2018 Cellulitis of left lower extremity L03.116 and BMI 45.0-49.9 , adult Z68.42 [place] [address], [place] [address] Apr, Cellulitis of left lower extremity L03.116 [place] [address] [place] [address] 41852- 9692 Apr, Cellulitis of left lower extremity L03.116 [place] [id number] [place] [address] 25137- 8486 Mar, [place] [id number] [place] [address] 50710- 3416 Mar, [place] [id number] [place] [address] 13933- 4697 Mar, Cellulitis of left lower limb L03.116 ; BMI 50.0-59.9, adult Z68.43 and Acute nasopharyngitis J00 [place] [id number] [place] [address] 47389- 7517 Feb, Non-intractable vomiting with nausea, unspecified vomiting type R11.2 ; 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 ; Venous insufficiency I87.2 and BMI 50.0-59.9 , adult Z68.43 [place] [address] [place] [address] 87709- 7242 Feb, Cellulitis of left lower extremity L03.116 and BMI 50.0-59.9 , adult Z68.43 [place] [address] [address] 3[address] Feb, [place] [id number] [place] [address] 94169- 6158 January, [place] [id number] [place] [address] 06484- 2503 January, Medicare annual wellness visit, initial Z00.00 ; Morbid obesity E66.01 ; Mild intermittent asthma without complication J45.20 ; Bipolar disorder with severe depression F31.4 ; 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 ; Venous insufficiency I87.2 and Encounter for immunization Z23 [facility] [address] [address]- 9[address] January, [place] [address] 92491- 0146 January, Cellulitis of left lower extremity L03.116 and BMI 50.0-59.9 , adult Z68.43 [place] [address] 88184- 6113 Dec, Non-pressure chronic ulcer of left calf, 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 ; History of cellulitis Z87.2 and BMI 50.0-59.9, adult Z68.43 [facility] [id number] [place] [address] 25873 -3530 Dec, Cloudy urine R82.90 ; Cellulitis of lower extremity, unspecified laterality L03.119 and BMI 50.0-59.9, adult Z68.43 [place] [id number] [place] [address] 88603- 6486 Nov, Sleep apnea G47.[address] [address]- 3393 08 Nov, 2017 Bipolar affective disorder, currently depressed, mild F31.31 ; Methamphetamine use disorder, severe, 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 ; Cocaine use disorder, severe, 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 ; Alcohol use disorder, mild, abuse F10.10 and BMI 50.0-59.9, adult Z68.43 [place] [id number] [place] [address] 74001- 1684 Oct, BMI 50.0-59.9, adult Z68.43 ; Bipolar affective disorder, currently depressed, mild F31.31 ; Methamphetamine use disorder, severe, 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 ; Cocaine use disorder, severe, 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 and Alcohol use disorder, mild, abuse F10.10 [place] [address] 90512- 6760 14 Oct, 2017 [facility] [address] [place] [address] 15860- 3962 Oct, BMI 50.0-59.9, adult Z68.43 ; 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 and Morbid obesity E66.01 [facility] [address] [place] [address] 90165 -9170 Sep, Acute suppurative otitis media of right ear without spontaneous rupture of tympanic membrane, recurrence not specified H66.001 and BMI 60.0-69.9, adult Z68.44 [place] [id number] [place] [address] 10709- 8788 Sep, [facility] [id number] [place] [address] 63429- 0933 Aug, Cervical disc disease M50.90 [facility] [id number] [place] [address] 34839- 0399 Aug, [facility] [id number] [place] [address] 01535- 3940 Aug, Mild intermittent asthma without complication J45.20 ; Cervical radiculopathy M54.12 ; Venous insufficiency I87.2 ; Morbid obesity E66.01 and BMI 50.0-59.9, adult Z68.43 [place] [id number] [place] [address] 66290- 5090 Jun, [facility] [id number] [place] [address] 03862- 7371 May, [facility] [id number] [place] [address] 65108- 7706 Apr, [place] [id number] [place] [address] 49538- 0847 Apr, 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 [facility] [id number] [place] [address] [id number] Apr, [place] [id number] [place] [address] 17703- 1747 Apr, 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 [facility] [id number] [place] [address] 32502- 2287 Apr, Cellulitis of left lower extremity L03.116 ; Localized edema R60.0 ; 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 and Bipolar disorder with severe depression F31.4 [place] [id number] [place] [address] 19246- 3652 Apr, Cellulitis of unspecified part of limb L03.119 and 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 [place] [id number] [place] [address] 14159- 4761 Mar, [facility] [id number] [place] [address] 52327 -0314 Mar, Cellulitis of left lower limb L03.116 [place] [id number] [place] [address] 55075- 1543 Mar, 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 and Cellulitis L03.90 [place] [id number] [place] [address] 91727- 7889 Mar, Bronchitis J40 and Cellulitis L03.90 [place] [id number] [place] [address] 21409- 8318 January, [facility] [id number] [place] [address] 61104- 9394 January, [place] [id number] [place] [address] 90090- 2280 Nov, 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 ; Cellulitis L03.90 ; Obese E66.9 ; Pain in left shoulder M25.512 ; Localized edema R60.0 ; Sleep apnea G47.30 ; Anxiety about health F41.8 and Bipolar disorder with severe depression F31.4 [facility] [id number] [place] [address] 49719- 7185 Aug, Obese E66.9 ; 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 ; Sleep apnea G47.30 ; Cellulitis L03.90 ; Cellulitis of unspecified part of limb L03.119 ; Intractable tension-type headache, unspecified chronicity pattern G44.201 ; Concussion, without loss of consciousness, subsequent encounter S06.0X0D and Localized edema R60.0 [place] [address] 42417- 6633 Jun, [place] [address] 63029- 9726 Jun, 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 ; Other chronic pain G89.29 ; Cellulitis of unspecified part of limb L03.119 and Cutaneous abscess of limb, unspecified L02.419 [place] [address] 59208- 5136 Jun, [place] [address] 34842- 3345 May, [place] [address] 11423- 0726 May, [place] [address] 23021- 7093 Apr, Impingement syndrome, shoulder, left M75.42 and SLAP lesion of left shoulder S43.432A [place] [id number] [place] [address] 09230- 2301 Apr, [place] [id number] [place] [address] 32245- 3234 Apr, [place] [address] 43205- 3161 Apr, [place] [id number] [place] [address] 06569- 6664 Apr, Cellulitis L03.90 ; Obese E66.9 ; Pain in left shoulder M25.512 and Edema, unspecified type R60.9 [place] [id number] [place] [address] 49163- 1363 14 Mar, 2016 Obese E66.9 ; Pain in left shoulder M25.512 and Other chronic pain G89.29 [place] [id number] [place] [address] 91478- 6273 Feb, Anxiety about health F41.8 [place] [address] 33839- 3324 Feb, Obese E66.9 ; 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 ; Shortness of breath R06.02 ; Palpitations R00.2 ; Bipolar disorder with severe depression F31.4 and 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 E40 [place] [id number] [place] [address] 92607- 9189 Feb, Bipolar disorder with severe depression F31.4 [place] [address] 33198- 5325 Feb, Injury of left shoulder and upper arm, initial encounter S49.92XA [place] [address] 50354- 4654 January, [place] [address] 17010- 0023 Dec, Bipolar disorder with severe depression F31.4 [place] [address] 22512- 1922 Dec, Obese E66.9 ; 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 ; Sleep apnea G47.30 ; Anxiety about health F41.8 and Bipolar disorder with severe depression F31.4 [place] [address] 87812- 2666 Dec, Bipolar disorder with severe depression F31.4 [place] [id number] [place] [address] 58525- 1389 Dec, Bipolar disorder with severe depression F31.4 and Other terminal operator (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 Z79.899 [place] [address], [place] [address]- 8358 30 Nov, 2015 [place] [id number] [place] [address] 05335- 0951 Nov, [place] [address] [place] [address] 11933- 1796 Nov, [place] [id number] [place] [address] 76293- 7411 Nov, [place] [id number] [place] [address] 08323- 8874 Nov, Bipolar disorder with severe depression F31.4 [address] [address] [place] [address] 68665- 4823 17 Nov, 2015 Bipolar disorder with severe depression F31.4 [place] [id number] [place] [address] 23576- 3601 16 Nov, 2015 Anxiety about health F41.8 ; Obese E66.9 ; 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 ; Bipolar disorder with severe depression F31.4 and Family history of obesity Z83.49 [place] [address] [place] [address] 53739- 0760 14 Nov, 2015 [address] [address] [place] [address] 20936- 3615 09 Nov, 2015 Obese E66.9 ; 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 ; Cellulitis L03.90 ; Palpitations R00.2 ; Sleep apnea G47.30 and Shortness of breath R06.02 [place] [id number] [place] [address] 67575- 0522 Sep, UTI (urinary tract infection) N39.0 and Bronchitis J40 [place] [address] [place] [address] 07642- 0120 Sep, [place] [id number] [address]- 8650 Mar, Left carpal tunnel syndrome 354.0 [facility] [id number] [place] [address] 58321- 0606 Feb, Cellulitis 682.9 and Ankle edema 782.3 [facility] [id number] [place] [address] 21307- 6272 Feb, [facility] [id number] [place] [address] 95621- 2594 January, Carpal tunnel syndrome on left 354.0 [facility] [id number] [place] [address] 84901- 2279 January, Shoulder pain, left 719.41 [facility] [id number] [place] [address] 29587- 4440 January, [facility] [id number] [place] [address] 60999- 4851 Dec, [facility] [address] [place] [address] 87566- 3014 Dec, [facility] [id number] [place] [address] 35228- 1252 Oct, [facility] [address], [place] [address]- 3218 Oct, [facility] [address] [place] [address] 45591- 2025 Oct, [facility] [address] 9428 Oct, [facility] [id number] 6389 Sep, [facility] [address] [address]- 9618 Sep, [facility] [id number] [place] [address] 98615- 2724 Aug, [facility] [place] [facility] [address] [id number] [place] [address]- 9784 Aug, [facility] [place] [facility] [address] [id number] [place] [address]- 4525 Jun, [facility] [place] [facility] [address] [id number] [place] [address]- 8096 Jun, [facility] [place] [facility] [address] [id number] [place] [address]- 0355 May, [facility] [place] [facility] [address] [id number] [place] [address]- 6595 May, [facility] [place] [facility] [address] [id number] [place] [address]- 5326 May, [facility] [place] [facility] [address] [id number] [place] [address]- 7797 May, [facility] [place] [facility] [address] [id number] [place] [address]- 2948 May, [facility] [place] [facility] [address] [id number] [place] [address]- 6853 05 May, 2014 [facility] [place] [facility] [address] [id number] [place] [address]- 7506 Apr, [facility] [place] [facility] [address] [id number] [place] [address]- 2749 Apr, [facility] [place] [facility] [address] [id number] [place] [address]- 9148 Apr, [facility] [place] [facility] [address] [id number] [place] [address]- 7529 Apr, [facility] [place] [facility] [address] [id number] [place] [address]- 4993 Apr, [facility] [place] [facility] [address] [id number] [place] [address]- 1655 Apr, [facility] [place] [facility] [address] [id number] [place] [address]- 2138 Apr, [facility] [place] [facility] [address] [id number] [place] [address]- 2953 Mar, [facility] [place] [facility] [address] [id number] [place] [address]- 8056 Mar, [facility] [place] [facility] [address] [id number] [place] [address]- 9561 Mar, [facility] [place] [facility] [address] [id number] [place] [address]- 3733 Mar, [facility] [place] [facility] [address] [id number] [place] [address]- 8885 Mar, [facility] [place] [facility] [address] [id number] [place] [address]- 8302 Mar, [facility] [place] [facility] [address] [id number] [place] [address]- 1828 Feb, [facility] [place] [facility] [address] [id number] [place] [address]- 2596 Feb, [facility] [place] [facility] [address] [id number] [place] [address]- 4376 Feb, [facility] [place] [facility] [address] [id number] [place] [address]- 0764 Feb, [facility] [place] [facility] [address] [id number] [place] [address]- 0211 January, [facility] [place] [facility] [address] [id number] [place] [address]- 3792 January, [facility] [place] [facility] [address] [id number] [place] [address]- 2147 January, [facility] [place] [facility] [address] [id number] [place] [address]- 2946 January, [facility] [place] [facility] [address] [id number] [place] [address]- 5893 January, [facility] [place] [facility] [address] [id number] [place] [address]- 4784 January, [facility] [place] [facility] [address] [id number] [place] [address]- 9335 January, [facility] [place] [facility] [address] [id number] [place] [address]- 3213 January, [facility] [place] [facility] [address] [id number] [place] [address]- 4292 January, [facility] [place] [facility] [address] [id number] [place] [address]- 7369 January, [facility] [place] [facility] [address] [id number] [place] [address]- 7811 January, [facility] [place] [facility] [address] [id number] [place] [address]- 9666 Dec, [facility] [place] [facility] [address] [id number] [place] [address]- 9554 Dec, [facility] [place] [facility] [address] [id number] [place] [address]- 5674 Dec, [facility] [place] [facility] [address] [id number] [place] [address]- 1083 Dec, [facility] [place] [facility] [address] [id number] [place] [address]- 8965 Nov, [facility] [place] [facility] [address] [id number] [place] [address]- 9796 Nov, [facility] [place] [facility] [address] [id number] [place] [address]- 5160 Oct, [facility] [place] [facility] [address] [id number] [place] [address]- 0745 Oct, [facility] [place] [facility] [address] [id number] [place] [address]- 0399 Oct, [facility] [place] [facility] [address] [id number] [place] [address]- 6595 Oct, [facility] [address] [id number] [place] [address]- 7698 Sep, [facility] [place] [facility] [address] [id number] [place] [address]- 9063 Sep, [facility] [address] [id number] [place] [address]- 4280 Sep, [facility] [address] [id number] [place] [address]- 4859 Sep, [facility] [address] [id number] [place] [address]- 8819 Sep, [facility] [address] [id number] [place] [address]- 9147 Sep, [facility] [address] [id number] [place] [address]- 9647 Aug, [facility] [address] [id number] [place] [address]- 1886 Aug, [facility] [address] [id number] [place] [address]- 7060 Aug, [facility] [address] [id number] [place] [address]- 3330 Aug, [facility] [place] [facility] [address] [id number] [place] [address]- 9788 Aug, [facility] [place] [facility] [address] [id number] [place] [address]- 7671 Aug, [facility] [place] [facility] [address] [id number] [place] [address]- 2900 Aug, [facility] [place] [facility] [address] [id number] [place] 3877 Aug, [facility] [place] [facility] [address] [id number] [place] [address]- 1554 Aug, [facility] [place] [facility] [address] [id number] [place] [address]- 1387 Aug, [facility] [place] [facility] [address] [id number] [place] [address]- 7038 Jul, [facility] [place] [facility] [address] [id number] [place] [address]- 0451 Jul, [facility] [place] [facility] [address] [id number] [place] [address]- 7936 Jul, [facility] [address] [id number] [place] [address]- 7980 Jul, [facility] [place] [facility] [address] [id number] [place] [address] Jun, [facility] [address] [id number] [place] [address] Jun, [facility] [place] [facility] [address] [id number] [place] [address] Jun, [facility] [place] [facility] [address] [id number] [place] [address] Jun, [facility] [place] [facility] [address] [id number] [place] [address] Jun, [facility] [place] [facility] [address] [id number] [place] [address] May, [facility] [place] [facility] [address] [id number], [place] [address] May, [facility] [place] [facility] [address] [id number] [place] [address] Apr, [facility] [place] [facility] [address] [id number] [place] [address] Mar, [facility] [place] [facility] [address] [id number] [place] [address] Mar, [facility] [place] [facility] [address] [id number], [place] [address] 10 Mar, 2013 [facility] [address] [id number] [place] [address] 09 Mar, 2013 [facility] [place] [facility] [address] [id number] [place] [address] 05 Mar, 2013 [facility] [place] [facility] [address] [id number] [place] [address] Mar, [facility] [place] [facility] [address] [id number] [place] [address] 18 Feb, 2013 [facility] [place] [facility] [address] [id number] [place] [address] 18 Feb, 2013 [facility] [place] [facility] [address] [id number] [place] [address]- [address] 16 Feb, 2013 [facility] [place] [facility] [address] [id number] [place] [address]- [address] 15 Feb, 2013 [facility] [place] [facility] [address] [id number] [place] [address] 14 Feb, 2013 [facility] [place] [facility] [address] [id number] [place] [address] Feb, [facility] [place] [facility] [address] [id number] [place] [address] Feb, [facility] [place] [facility] [address] [id number] [place] [address] January, [facility] [place] [facility] [address] [id number] [place] [address] January, [facility] [place] [facility] [address] [id number] [place] [address] Nov, [facility] [place] [facility] [address] [id number] [place] [address] Nov, [facility] [place] [facility] [address] [id number] [place] [address] Nov, [facility] [place] [facility] [address] [id number] [place] [address] Nov, [facility] [place] [facility] [address] [id number] [place] [address] Oct, [facility] [place] [facility] [address] [id number] [place] [address] Oct, [facility] [place] [facility] [address] [id number] [place] [address] Oct, [facility] [place] [facility] [address] [id number] [place] [address] Sep, [facility] [place] [facility] [address] [id number] [place] [address] Sep, [facility] [place] [facility] [address] [id number] [place] [address] Sep, [facility] [place] [facility] [address] [id number] [place] [address] Sep, [facility] [place] [facility] [address] [id number] [place] [address] Aug, [facility] [place] [facility] [address] [id number] [place] [address]- [address] Aug, [facility] [place] [facility] [address] [id number] [place] [address] Jul, [facility] [place] [facility] [address] [id number] [place] [address] Jul, [facility] [place] [facility] [address] [id number] [place] [place] [address] Jun, [facility] [place] [facility] [address] [id number] [place] [address] Jun, [facility] [place] [facility] [address] [id number] [place] [address] Jun, [facility] [place] [facility] [address] [id number] [place] [address] Jun, [facility] [place] [facility] [address] [id number] [place] [address] Jun, [facility] [place] [facility] [address] [id number] [place] [address] Jun, [facility] [place] [facility] [address] [id number] [place] [address] Jun, [facility] [place] [facility] [address] [id number] [place] [address] Jun, [facility] [place] [facility] [address] [id number] [place] [address] Jun, [facility] [place] [facility] [address] [id number] [place] [address] Jun, [facility] [place] [facility] [address] [id number] [place] [address] Jun, [facility] [place] [facility] [address] [id number], [place] [address] Jun, [facility] [place] [facility] [address] [id number], [place] [address] Jun, [facility] [place] [facility] [address] [id number], [place] [address] Jun, [facility] [place] [facility] [address] [id number], [place] [address] Jun, [facility] [place] [facility] [address] [id number], [place] [address] Jun, [facility] [place] [facility] [address] [id number], [place] [address] 29 May, 2012 [facility] [place] [facility] [address] [id number] [address] May, [facility] [place] [facility] [address] [id number][place] [address] May, [facility] [place] [facility] [address] [id number] [place] [address] May, [facility] [place] [facility] [address] [id number] [place] [address] May, [facility] [place] [facility] [address] [id number] [place] [address] Mar, [facility] [place] [facility] [address] [id number] [place] [address] Mar, [facility] [place] [facility] [address] [id number] [place] [address] Mar, [facility] [place] [facility] [address] [id number] [place] [address] Mar, [facility] [place] [facility] [address] [id number] [place] [address] 1440 Mar, [facility] [place] [facility] [address] [id number] [place] [address] Mar, [facility] [place] [facility] [address] [id number] [place] [address] Feb, [facility] [place] [facility] [address] [id number] [place] [address] Feb, [facility] [place] [facility] [address] [id number] [place] [address] Feb, [facility] [place] [facility] [address] [id number] [place] [address] Feb, [facility] [place] [facility] [address] [id number] [place] [address] Feb, [facility] [place] [facility] [address] [id number] [place] [address] January, [facility] [place] [facility] [address] [id number] [place] [address] 2003 Dec, [facility] [place] [facility] [address] [id number] [place] [address] Dec, [facility] [id number] [address] Dec, [facility] [id number] [address] Dec, [facility] [id number] [address] Dec, [facility] [id number] [place] [address] Nov, [facility] [id number] [address] Oct, [facility] [id number] [place] [address] Sep, [facility] [id number] [address] Aug, [facility] [id number], [place] [address] Jul, [facility] [id number], [place] [address] Jul, [facility] [id number], [place] [address] Jul, [facility] [id number], [place] [address] Apr, [facility] [id number], [place] [address] Apr, [facility] [address] [id number] [address] Apr, [facility] [id number] [address] January, IMMUNIZATIONS No Known Immunizations SOCIAL HISTORY Never Assessed REASON FOR VISIT Vomiting x 2 days-awoods, diarrhea x 2 days PLAN OF CARE Activity Details Follow Up prn with PCP Alyssa Reason: VITAL SIGNS Height 65 in 2018-03-11 Weight 312.5 lbs 2018-03-11 Temperature 98.8 degrees Fahrenheit 2018-03-11 Heart Rate 86 bpm 2018-03-11 Respiratory Rate 20 2018-03-11 BMI 52.00 kg/m2 2018-03-11 Blood pressure systolic 150 mmHg 2018-03-11 Blood pressure diastolic 88 mmHg 2018-03-11 MEDICATIONS Medication Instructions Dosage Frequency Start Date End Date Duration Status Topamax Sprinkle 25 MG Orally. may swallow whole or open and sprinle on food and swallow immediately. 2 times a day 2 capsules 12h January, 30 day (s) Active Topamax 50 MG Orally Twice a day 1 tablet 12h Oct, 30 days Not -Taking Sulfamethoxazole-Trimethoprim 200-40 MG/5ML Orally twice a day 20 ml 12h Feb, Feb, 7 days Active Silvadene 1 % Externally TID PRN 1 application to affected area January, Active RESULTS No Results PROCEDURES No Known [...] Hospitalization History Celluliti BLE-[facility] 02/08/17 Hospitalization History Cellulitis-[facility] 04/22/17 Hospitalization History cellulitis-[facility] December 2017
--- OUTSIDE RECORDS SUMMARY | 2018-10-07 15:54 | XMS REPORT ---
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 Name Role Phone CAROLYNE STARR Unavailable PROBLEMS Type Condition ICD9-CM Code GCP50-DR Code Onset Dates Condition Status SNOMED Code Problem Mild intermittent asthma without complication J45.20 Active 435025610 Problem Venous insufficiency I87.2 Active 51635868 Problem Morbid obesity E66.01 Active 012263625 Problem BMI 50.0-59.9, adult Z68.43 Active 119969854 Problem Bipolar affective disorder, currently depressed, mild F31.31 Active 657587560 Problem Methamphetamine use disorder, severe, 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 Active 11966675 Problem Cervical disc disease M50.90 Active 091354140 Problem Alcohol use disorder, mild, abuse F10.10 Active 23467152 Problem Cocaine use disorder, severe, 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 Active 87153588 Problem Bipolar disorder with severe depression F31.4 Active 139890867 Problem Pain in left shoulder M25.512 Active 54078472 Problem 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 855885810 Problem Sleep apnea G47.30 Active 96271313 Problem Cervical radiculopathy M54.12 Active 18951347 ALLERGIES No Information ENCOUNTERS Encounter Location Date Diagnosis [facility] [id number] [address] 11 Jun, 2018 [facility] [address] [facility] [id number] [address] 13 May, 2018 Bronchitis J40 ; Cellulitis of left lower extremity L03.116 and BMI 45.0-49.9, adult Z68.42 [facility] [address] [facility] [id number], [place] [address] 30 Apr, 2018 Cellulitis of left lower extremity L03.116 and BMI 45.0-49.9 , adult Z68.42 [address], [place] [address] 6[address] Apr, Cellulitis of left lower extremity L03.116 [place] [address] [place] [address] 05722- 9509 Apr, Cellulitis of left lower extremity L03.116 [place] [id number] [place] [address] 36818- 6470 Mar, [place] [address] [place] [address] 25400- 5252 Mar, [place] [id number] [place] [address] 86343- 5040 Mar, Cellulitis of left lower limb L03.116 ; BMI 50.0-59.9, adult Z68.43 and Acute nasopharyngitis J00 [place] [id number] [place] [address] 70369- 1091 Feb, Non-intractable vomiting with nausea, unspecified vomiting type R11.2 ; 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 ; Venous insufficiency I87.2 and BMI 50.0-59.9 , adult Z68.43 [place] [address] [place] [address] 95592- 0089 Feb, Cellulitis of left lower extremity L03.116 and BMI 50.0-59.9 , adult Z68.43 [place] [address], [place] [address] 7709 Feb, [place] [address] [place] [address] 76184- 3651 January, [place] [id number] [place] [address] 16405- 7895 January, Medicare annual wellness visit, initial Z00.00 ; Morbid obesity E66.01 ; Mild intermittent asthma without complication J45.20 ; Bipolar disorder with severe depression F31.4 ; 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 ; Venous insufficiency I87.2 and Encounter for immunization Z23 [facility] [place] [address] [address]- [address]44 January, [place] [address] 89246- 8854 January, Cellulitis of left lower extremity L03.116 and BMI 50.0-59.9 , adult Z68.43 [place] [address] 72101- 8794 Dec, Non-pressure chronic ulcer of left calf, 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 ; History of cellulitis Z87.2 and BMI 50.0-59.9, adult Z68.43 [facility] [id number] [place] [address] 63212 -0437 Dec, Cloudy urine R82.90 ; Cellulitis of lower extremity, unspecified laterality L03.119 and BMI 50.0-59.9, adult Z68.43 [place] [id number] [place] [address] 26794- 9114 Nov, Sleep apnea G47.[address] [address]- 6891 08 Nov, 2017 Bipolar affective disorder, currently depressed, mild F31.31 ; Methamphetamine use disorder, severe, 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 ; Cocaine use disorder, severe, 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 ; Alcohol use disorder, mild, abuse F10.10 and BMI 50.0-59.9, adult Z68.43 [place] [id number] [place] [address] 04316- 0735 Oct, BMI 50.0-59.9, adult Z68.43 ; Bipolar affective disorder, currently depressed, mild F31.31 ; Methamphetamine use disorder, severe, 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 ; Cocaine use disorder, severe, 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 and Alcohol use disorder, mild, abuse F10.10 [place] [address] 60576- 7191 14 Oct, 2017 [facility] [place] [address] [place] [address] 89002- 5082 Oct, BMI 50.0-59.9, adult Z68.43 ; 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 and Morbid obesity E66.01 [facility] [address], [place] [address] Sep, Acute suppurative otitis media of right ear without spontaneous rupture of tympanic membrane, recurrence not specified H66.001 and BMI 60.0-69.9, adult Z68.44 [place] [id number] [place] [address] 66087- 6543 Sep, [facility] [id number] [place] [address] 67480- 7750 Aug, Cervical disc disease M50.90 [facility] [id number] [place] [address] 49726- 1509 Aug, [facility] [id number] [place] [address] 94782- 0259 Aug, Mild intermittent asthma without complication J45.20 ; Cervical radiculopathy M54.12 ; Venous insufficiency I87.2 ; Morbid obesity E66.01 and BMI 50.0-59.9, adult Z68.43 [facility] [id number] [place] [address] 08389- 8182 Jun, [facility] [id number] [place] [address] 00070- 0080 May, [facility] [id number] [place] [address] 65190- 5742 Apr, [facility] [id number] [place] [address] 79247- 5118 Apr, 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 [facility] [id number] [place] [address] [id number] Apr, [facility] [id number] [place] [address] 87826- 9566 Apr, 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 [facility] [id number] [place] [address] 25973- 5265 Apr, Cellulitis of left lower extremity L03.116 ; Localized edema R60.0 ; 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 and Bipolar disorder with severe depression F31.4 [facility] [id number] [place] [address] 65839- 6307 Apr, Cellulitis of unspecified part of limb L03.119 and 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 [place] [address] 72856- 7139 Mar, [facility] [id number] [place] [address] 61237 -5742 Mar, Cellulitis of left lower limb L03.116 [place] [id number] [place] [address] 37699- 5593 Mar, 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 and Cellulitis L03.90 [place] [id number] [place] [address] 67251- 6582 Mar, Bronchitis J40 and Cellulitis L03.90 [place] [id number] [place] [address] 58430- 8625 January, [facility] [place] [id number] [place] [address] 31815- 8319 January, [place] [id number] [place] [address] 08082- 7992 Nov, 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 ; Cellulitis L03.90 ; Obese E66.9 ; Pain in left shoulder M25.512 ; Localized edema R60.0 ; Sleep apnea G47.30 ; Anxiety about health F41.8 and Bipolar disorder with severe depression F31.4 [place] [id number] [place] [address] 80669- 6212 Aug, Obese E66.9 ; 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 ; Sleep apnea G47.30 ; Cellulitis L03.90 ; Cellulitis of unspecified part of limb L03.119 ; Intractable tension-type headache, unspecified chronicity pattern G44.201 ; Concussion, without loss of consciousness, subsequent encounter S06.0X0D and Localized edema R60.0 [place] [address] 33432- 3948 Jun, [place] [address] 11244- 2402 Jun, 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 ; Other chronic pain G89.29 ; Cellulitis of unspecified part of limb L03.119 and Cutaneous abscess of limb, unspecified L02.419 [place] [address] 37634- 7416 Jun, [place] [address] 28777- 4110 May, [place] [address] 23233- 4018 May, [place] [address] 42282- 7560 Apr, Impingement syndrome, shoulder, left M75.42 and SLAP lesion of left shoulder S43.432A [place] [id number] [place] [address] 25401- 1088 Apr, [place] [id number] [place] [address] 16015- 0310 Apr, [place] [address] 19555- 1723 Apr, [place] [id number] [place] [address] 08026- 3052 Apr, Cellulitis L03.90 ; Obese E66.9 ; Pain in left shoulder M25.512 and Edema, unspecified type R60.9 [place] [id number] [place] [address] 03223- 9111 Mar, Obese E66.9 ; Pain in left shoulder M25.512 and Other chronic pain G89.29 [place] [id number] [place] [address] 01313- 8252 Feb, Anxiety about health F41.8 [place] [address] 28811- 2270 Feb, Obese E66.9 ; 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 ; Shortness of breath R06.02 ; Palpitations R00.2 ; Bipolar disorder with severe depression F31.4 and 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 E40 [place] [id number] [place] [address] 28122- 2911 Feb, Bipolar disorder with severe depression F31.4 [place] [address] 72937- 6475 Feb, Injury of left shoulder and upper arm, initial encounter S49.92XA [place] [address] 67678- 7208 January, [place] [id number] [place] [address] 71955- 2048 Dec, Bipolar disorder with severe depression F31.4 [place] [id number] [place] [address] 38690- 2761 Dec, Obese E66.9 ; 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 ; Sleep apnea G47.30 ; Anxiety about health F41.8 and Bipolar disorder with severe depression F31.4 [place] [id number] [place] [address] 88501- 0216 Dec, Bipolar disorder with severe depression F31.4 [place] [id number] [place] [address] 94620- 3357 Dec, Bipolar disorder with severe depression F31.4 and Other group home (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 Z79.899 [place] [address], [place] [address]- 1579 30 Nov, 2015 [place] [id number] [place] [address] 32667- 1377 Nov, [place] [id number] [place] [address] 54314- 2087 Nov, [place] [id number] [place] [address] 40280- 3684 Nov, [place] [id number] [place] [address] 55614- 2787 Nov, Bipolar disorder with severe depression F31.4 [place] [id number] [place] [address] 04570- 3370 17 Nov, 2015 Bipolar disorder with severe depression F31.4 [place] [id number] [place] [address] 37230- 8438 16 Nov, 2015 Anxiety about health F41.8 ; Obese E66.9 ; 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 ; Bipolar disorder with severe depression F31.4 and Family history of obesity Z83.49 [place] [address] [place] [address] 03841- 3592 14 Nov, 2015 [place] [address] [place] [address] 30569- 1253 09 Nov, 2015 Obese E66.9 ; 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 ; Cellulitis L03.90 ; Palpitations R00.2 ; Sleep apnea G47.30 and Shortness of breath R06.02 [id number] [place] [address] 77184- 8206 Sep, UTI (urinary tract infection) N39.0 and Bronchitis J40 [address] [place] [address] 67199- 0011 Sep, [place] [address] [address]- 8180 Mar, Left carpal tunnel syndrome 354.0 [facility] [place] [id number] [place] [address] 28872- 9560 Feb, Cellulitis 682.9 and Ankle edema 782.3 [facility] [id number] [place] [address] 87693- 2230 Feb, [facility] [id number] [place] [address] 06842- 1322 January, Carpal tunnel syndrome on left 354.0 [facility] [id number] [place] [address] 84697- 5457 January, Shoulder pain, left 719.41 [facility] [place] [id number] [place] [address] 33619- 7954 January, [facility] [id number] [place] [address] 43636- 1536 Dec, [facility] [address] [place] [address] 24889- 8610 Dec, [facility] [id number] [place] [address] 40731- 7543 Oct, [facility] [address], [place] [address]- 8609 Oct, [facility] [place] [address] [place] [address] 99836- 3535 Oct, [facility] [place] [address], [place] [address]- 5570 Oct, [facility] [place] [id number] [place] [address] 10232- 5914 Sep, [facility] [place] [address], [place] [address]- 1872 Sep, [facility] [place] [id number] [place] [address] 55183- 8034 Aug, [facility] [place] [facility] [address] [id number] [place] [address]- 8396 Aug, [facility] [place] [facility] [address] [id number] [place] [address]- 3351 Jun, [facility] [place] [facility] [address] [id number] [place] [address]- 2610 Jun, [facility] [place] [facility] [address] [id number] [place] [address]- 0126 May, [facility] [place] [facility] [address] [id number] [place] [address]- 7682 May, [facility] [place] [facility] [address] [id number] [place] [address]- 6145 May, [facility] [place] [facility] [address] [id number] [place] [address]- 6851 May, [facility] [place] [facility] [address] [id number] [place] [address]- 3494 May, [facility] [place] [facility] [address] [id number] [place] [address]- 3751 05 May, 2014 [facility] [place] [facility] [address] [id number] [place] [address]- 8116 Apr, [facility] [place] [facility] [address] [id number] [place] [address]- 3391 Apr, [facility] [place] [facility] [address] [id number] [place] [address]- 5910 Apr, [facility] [place] [facility] [address] [id number] [place] [address]- 3188 Apr, [facility] [place] [facility] [address] [id number] [place] [address]- 0109 Apr, [facility] [place] [facility] [address] [id number] [place] [address]- 3738 Apr, [facility] [place] [facility] [address] [id number] [place] [address]- 5405 Apr, [facility] [place] [facility] [address] [id number] [place] [address]- 3756 Mar, [facility] [place] [facility] [address] [id number] [place] [address]- 0457 Mar, [facility] [place] [facility] [address] [id number] [place] [address]- 5566 Mar, [facility] [place] [facility] [address] [id number] [place] [address]- 0740 Mar, [facility] [place] [facility] [address] [id number] [place] [address]- 3815 Mar, [facility] [place] [facility] [address] [id number] [place] [address]- 5789 Mar, [facility] [place] [facility] [address] [id number] [place] [address]- 1247 Feb, [facility] [place] [facility] [address] [id number] [place] [address]- 6579 Feb, [facility] [place] [facility] [address] [id number] [place] [address]- 8531 Feb, [facility] [place] [facility] [address] [id number] [place] [address]- 6408 Feb, [facility] [place] [facility] [address] [id number] [place] [address]- 7404 January, [facility] [place] [facility] [address] [id number] [place] [address]- 2706 January, [facility] [place] [facility] [address] [id number] [place] [address]- 8786 January, [facility] [place] [facility] [address] [id number] [place] [address]- 4456 January, [facility] [place] [facility] [address] [id number] [place] 0010 January, [facility] [place] [facility] [address] [id number] [place] [address]- 8291 January, [facility] [place] [facility] [address] [id number] [place] [address]- 5908 January, [facility] [place] [facility] [address] [id number] [place] [address]- 6082 January, [facility] [place] [facility] [address] [id number] [place] [address]- 8969 January, [facility] [place] [facility] [address] [id number] [place] [address]- 9278 January, [facility] [place] [facility] [address] [id number] [place] [address]- 5458 January, [facility] [place] [facility] [address] [id number] [place] [address]- 5691 Dec, [facility] [place] [facility] [address] [id number] [place] [address]- 0197 Dec, [facility] [place] [facility] [address] [id number] [place] [address]- 2427 Dec, [facility] [place] [facility] [address] [id number] [place] [address]- 0308 Dec, [facility] [place] [facility] [address] [id number] [place] [address]- 7744 Nov, [facility] [place] [facility] [address] [id number] [place] [address]- 3107 Nov, [facility] [place] [facility] [address] [id number] [place] [address]- 3940 Oct, [facility] [place] [facility] [address] [id number] [place] [address]- 5860 Oct, [facility] [place] [facility] [address] [id number] [place] [address]- 7130 Oct, [facility] [place] [facility] [address] [id number] [place] [address]- 3104 04 Oct, 2013 [facility] [address] [id number] [place] [address]- 1940 Sep, [facility] [place] [facility] [address] [id number] [place] [address]- 0730 Sep, [facility] [address] [id number] [place] [address]- 0764 Sep, [facility] [place] [facility] [address] [id number] [place] [address]- 2799 Sep, [facility] [address] [id number] [place] [address] Sep, [facility] [place] [facility] [address] [id number] [place] [address] Sep, [facility] [address] [id number] [place] [address] Aug, [facility] [place] [facility] [address] [id number] [place] [address] Aug, [facility] [place] [facility] [address] [id number] [place] [address] Aug, [facility] [place] [facility] [address] [id number] [place] [address] Aug, [facility] [place] [facility] [address] [id number] [place] [address] Aug, [facility] [place] [facility] [address] [id number] [place] [address] Aug, [facility] [place] [facility] [address] [id number] [place] [address] Aug, [facility] [place] [facility] [address] [id number] [place] [address] Aug, [facility] [place] [facility] [address] [id number] [place] [address] Aug, [facility] [place] [facility] [address] [id number] [place] [address] Aug, [facility] [place] [facility] [address] [id number] [place] [address] Jul, [facility] [place] [facility] [address] [id number] [place] [address] Jul, [facility] [place] [facility] [address] [id number] [place] [address] Jul, [facility] [place] [facility] [address] [id number] [place] [address]478 Jul, [facility] [place] [facility] [address] [id number] [place] [address] Jun, [facility] [place] [facility] [address] [id number] [place] [address] Jun, [facility] [place] [facility] [address] [id number] [place] [address] Jun, [facility] [place] [facility] [address] [id number] [place] [address] Jun, [facility] [place] [facility] [address] [id number] [place] [address] Jun, [facility] [place] [facility] [address] [id number] [place] [address] May, [facility] [place] [facility] [address] [id number] [place] [address]60 May, [facility] [place] [facility] [address] [id number] [place] [address] Apr, [facility] [place] [facility] [address] [id number] [place] [address] Mar, [facility] [place] [facility] [address] [id number] [place] [address] Mar, [facility] [place] [facility] [address] [id number] [place] [address] 10 Mar, 2013 [facility] [place] [facility] [address] [id number] [place] [address] 09 Mar, 2013 [facility] [place] [facility] [address] [id number] [place] [address] 05 Mar, 2013 [facility] [place] [facility] [address] [id number] [place] [address] Mar, [facility] [place] [facility] [address] [id number] [place] [address] 18 Feb, 2013 [facility] [place] [facility] [address] [id number] [place] [address] 18 Feb, 2013 [facility] [place] [facility] [address] [id number] [place] [address]- [address] 16 Feb, 2013 [facility] [place] [facility] [address] [id number] [place] [address] 15 Feb, 2013 [facility] [place] [facility] [address] [id number] [place] [address]- [address] 14 Feb, 2013 [facility] [place] [facility] [address] [id number] [place] [address] Feb, [facility] [place] [facility] [address] [id number] [place] [address] Feb, [facility] [place] [facility] [address] [id number] [place] [address] January, [facility] [place] [facility] [address] [id number] [place] [address]- [address] January, [facility] [place] [facility] [address] [id number] [place] [address] Nov, [facility] [place] [facility] [address] [id number] [place] [address] Nov, [facility] [place] [facility] [address] [id number] [place] [address] Nov, [facility] [place] [facility] [address] [id number] [place] [address] Nov, [facility] [address] [id number] [place] [address] Oct, [facility] [place] [facility] [address] [id number] [place] [address] Oct, [facility] [place] [facility] [address] [id number] [place] [address] Oct, [facility] [place] [facility] [address] [id number] [place] [address] Sep, [facility] [place] [facility] [address] [id number] [place] [address] Sep, [facility] [place] [facility] [address] [id number] [place] [address] Sep, [facility] [place] [facility] [address] [id number] [place] [address] Sep, [facility] [address] [id number] [place] [address] Aug, [facility] [place] [facility] [address] [id number] [place] [address] Aug, [facility] [place] [facility] [address] [id number] [place] [address] Jul, [facility] [place] [facility] [address] [id number] [place] [address] Jul, [facility] [place] [facility] [address] [id number] [place] [address] Jun, [facility] [place] [facility] [address] [id number] [place] [address] Jun, [facility] [place] [facility] [address] [id number] [place] [address] Jun, [facility] [place] [facility] [address] [id number] [place] [address] Jun, [facility] [place] [facility] [address] [id number] [place] [address] Jun, [facility] [place] [facility] [address] [id number] [place] [address] Jun, [facility] [place] [facility] [address] [id number] [place] [address] Jun, [facility] [place] [facility] [address] [id number] [place] [address] Jun, [facility] [place] [facility] [address] [id number] [place] [address] Jun, [facility] [place] [facility] [address] [id number] [place] [address] 8489 Jun, [facility] [place] [facility] [address] [id number] [place] [address]- [address] Jun, [facility] [place] [facility] [address] [id number][place] [address] Jun, [facility] [place] [facility] [address] [id number] [place] [address] Jun, [facility] [place] [facility] [address] [id number], [place] [address] Jun, [facility] [place] [facility] [address] [id number], [place] [address] Jun, [facility] [place] [facility] [address] [id number], [place] [address] Jun, [facility] [place] [facility] [address] [id number], [place] [address] 29 May, 2012 [facility] [place] [facility] [address] [id number], [place] [address] May, [facility] [place] [facility] [address] [id number], [place] [address] May, [facility] [place] [facility] [address] [id number] [place] [address]- 9547 May, [facility] [place] [facility] [address] [id number] [place] [address] May, [facility] [place] [facility] [address] [id number] [place] [address] Mar, [facility] [place] [facility] [address] [id number] [place] [address] Mar, [facility] [place] [facility] [address] [id number] [place] [address]39 Mar, [facility] [place] [facility] [address] [id number] [place] [address]- 39[address] Mar, [facility] [place] [facility] [address] [id number] [place] [address]- [address] Mar, [facility] [place] [facility] [address] [id number] [place] [address] Mar, [facility] [place] [facility] [address] [id number] [place] [address] 1974 Feb, [facility] [place] [facility] [address] [id number] [place] [address] Feb, [facility] [place] [facility] [address] [id number] [place] [address] 1990 Feb, [facility] [place] [facility] [address] [id number] [place] [address] Feb, [facility] [place] [facility] [address] [id number] [place] [address]- [address] Feb, [facility] [place] [facility] [address] [id number] [place] [address]- [address] January, [facility] [place] [facility] [address] [id number] [place] [address] 4899 Dec, [facility] [place] [facility] [address] [id number] [place] [address]- [address]598 Dec, [facility] [place] [address] [facility] [id number], [place] [address] Dec, [facility] [place] [id number], [place] [address] Dec, [facility] [place] [id number], [place] [address] Dec, [facility] [place] [id number], [place] [address] Nov, [facility] [place] [address] [facility] [id number], [place] [address] Oct, [facility] [place] [id number], [place] [address] Sep, [facility] [place] [id number], [place] [address] Aug, [facility] [place] [id number], [place] [address] Jul, [facility] [place] [id number], [place] [address] Jul, [facility] [place] [id number] [address] Jul, [facility] [place] [address], [place] [address] Apr, [facility] [place] [id number], [place] [address] Apr, [facility] [place] [id number] [address] Apr, [facility] [place] [id number] [address] January, IMMUNIZATIONS No Known Immunizations SOCIAL HISTORY Never Assessed REASON FOR VISIT PLAN OF CARE VITAL SIGNS MEDICATIONS Medication Instructions Dosage Frequency Start Date End Date Duration Status Bactrim DS 800-160 MG Orally Twice a day 2 tablets 12h Apr,Apr 07 days Active RESULTS No Results PROCEDURES No [...] bronchitis ER visit -04/15-06-30 Hospitalization History Celluliti BLE-[facility] 02/08/17 Hospitalization History Cellulitis-[facility] 04/22/17 Hospitalization History cellulitis-[facility] December 2017
--- OUTSIDE RECORDS SUMMARY | 2018-10-07 15:55 | XMS REPORT ---
Author Author CAROLYNE STARR [facility] Address [address] [place] [address] Care Team Providers Care [place] [place] Worker Name Role Phone CAROLYNE STARR Unavailable PROBLEMS Type Condition ICD9-CM Code LMH92-VW Code Onset Dates Condition Status SNOMED Code Problem Mild intermittent asthma without complication J45.20 Active 902765796 Problem Venous insufficiency I87.2 Active 52938481 Problem Morbid obesity E66.01 Active 726724245 Problem BMI 50.0-59.9, adult Z68.43 Active 033996479 Problem Bipolar affective disorder, currently depressed, mild F31.31 Active 979076244 Problem Methamphetamine use disorder, severe, 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 Active 86790580 Problem Cervical disc disease M50.90 Active 525942939 Problem Alcohol use disorder, mild, abuse F10.10 Active 85657191 Problem Cocaine use disorder, severe, 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 Active 16676248 Problem Bipolar disorder with severe depression F31.4 Active 466639930 Problem Pain in left shoulder M25.512 Active 24809399 Problem 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 396618345 Problem Sleep apnea G47.30 Active 49257526 Problem Cervical radiculopathy M54.12 Active 09982501 ALLERGIES No Known Allergies ENCOUNTERS Encounter Location Date Diagnosis [facility] [id number] [place] [address] 06599- 7448 Apr, Cellulitis of left lower extremity L03.116 and BMI 45.0-49.9 , adult Z68.42 [facility] [id number] [place] [address] 09613- 0003 Apr, Cellulitis of left lower extremity L03.116 [facility] [address] [address] 2925 Apr, Cellulitis of left lower extremity L03.116 [facility] [address] [address] 6852 Mar, [facility] [id number] [place] [address] 64881- 7714 Mar, [facility] [address] [address] 9485 Mar, Cellulitis of left lower limb L03.116 ; BMI 50.0-59.9, adult Z68.43 and Acute nasopharyngitis J00 [facility] [id number] [place] [address] 73599- 7862 Feb, 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 ; Venous insufficiency I87.2 and BMI 50.0-59.9, adult Z68.43 [place] [id number] [place] [address] 48282- 7734 Feb, Cellulitis of left lower extremity L03.116 and BMI 50.0-59.9 , adult Z68.43 [place] [id number] [place] [address] 57589- 4239 Feb, [facility] [id number] [place] [address] 80289- 8421 January, [facility] [address] [address]- 5307 January, Medicare annual wellness visit, initial Z00.00 ; Morbid obesity E66.01 ; Mild intermittent asthma without complication J45.20 ; Bipolar disorder with severe depression F31.4 ; 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 ; Venous insufficiency I87.2 and Encounter for immunization Z23 [facility] [address] [address] 2463 January, [facility] [address] [address]- 6186 January, Cellulitis of left lower extremity L03.116 and BMI 50.0-59.9 , adult Z68.43 [facility] [place] [id number] [place] [address] 84368- 4947 Dec, Non-pressure chronic ulcer of left calf, 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 ; History of cellulitis Z87.2 and BMI 50.0-59.9, adult Z68.43 [facility] [place] [id number] [place] [address] 68684 -5228 03 Dec, 2017 Cloudy urine R82.90 ; Cellulitis of lower extremity, unspecified laterality L03.119 and BMI 50.0-59.9, adult Z68.[address] 35752- 1399 Nov, Sleep apnea G47.[address] 11228- 7147 08 Nov, 2017 Bipolar affective disorder, currently depressed, mild F31.31 ; Methamphetamine use disorder, severe, 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 ; Cocaine use disorder, severe, 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 ; Alcohol use disorder, mild, abuse F10.10 and BMI 50.0-59.9, adult Z68.[address] 17023- 8734 15 Oct, 2017 BMI 50.0-59.9, adult Z68.43 ; Bipolar affective disorder, currently depressed, mild F31.31 ; Methamphetamine use disorder, severe, 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 ; Cocaine use disorder, severe, 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 and Alcohol use disorder, mild, abuse F10.10 [place] [id number] [place] [address] 70353- 0324 14 Oct, [address] 66456- 1371 Oct, BMI 50.0-59.9, adult Z68.43 ; 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 and Morbid obesity E66.01 [facility] [place] [id number] [place] [address] 95054 -4567 Sep, Acute suppurative otitis media of right ear without spontaneous rupture of tympanic membrane, recurrence not specified H66.001 and BMI 60.0-69.9, adult Z68.44 [facility] [facility] [id number] [place] [address] 88133- 1209 Sep, [facility] [facility] [id number] [place] [address] 03693- 7793 Aug, Cervical disc disease M50.90 [place] [address] 22272- 5577 Aug, [place] [address] 33265- 3845 Aug, Mild intermittent asthma without complication J45.20 ; Cervical radiculopathy M54.12 ; Venous insufficiency I87.2 ; Morbid obesity E66.01 and BMI 50.0-59.9, adult Z68.43 [facility] [facility] [id number] [place] [address] 17260- 8515 Jun, [facility] [facility] [id number] [place] [address] 70410- 4132 May, [facility] [facility] [id number] [place] [address] 68911- 1040 Apr, [facility] [facility] [id number] [place] [address] 78508- 6721 Apr, 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 [place] [address] [id number] Apr, [place] [id number] [place] [address] 04024- 3780 Apr, 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 [facility] [id number] [place] [address] 96450- 0211 Apr, Cellulitis of left lower extremity L03.116 ; Localized edema R60.0 ; 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 and Bipolar disorder with severe depression F31.4 [place] [address] [place] [address] 34175- 4302 Apr, Cellulitis of unspecified part of limb L03.119 and 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 [facility] [facility] [id number] [place] [address] 11898- 5120 Mar, [facility] [id number] [place] [address] 51810 -1993 Mar, Cellulitis of left lower limb L03.116 [facility] [id number] [place] [address] 78027- 4677 Mar, 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 and Cellulitis L03.90 [place] [id number] [place] [address] 98426- 2780 Mar, Bronchitis J40 and Cellulitis L03.90 [place] [id number] [place] [address] 83660- 6594 January, [place] [id number] [place] [address] 24608- 2644 January, [facility] [facility] [id number] [place] [address] 71855- 1655 Nov, 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 ; Cellulitis L03.90 ; Obese E66.9 ; Pain in left shoulder M25.512 ; Localized edema R60.0 ; Sleep apnea G47.30 ; Anxiety about health F41.8 and Bipolar disorder with severe depression F31.4 [place] [id number] [place] [address] 00363- 9140 Aug, Obese E66.9 ; 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 ; Sleep apnea G47.30 ; Cellulitis L03.90 ; Cellulitis of unspecified part of limb L03.119 ; Intractable tension-type headache, unspecified chronicity pattern G44.201 ; Concussion, without loss of consciousness, subsequent encounter S06.0X0D and Localized edema R60.0 [facility] [id number] [place] [address] 01755- 4865 Jun, [facility] [address] [place] [address] 98995- 8297 Jun, 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 ; Other chronic pain G89.29 ; Cellulitis of unspecified part of limb L03.119 and Cutaneous abscess of limb, unspecified L02.419 [place] [id number] [place] [address] 30301- 9153 Jun, [facility] [id number] [place] [address] 66277- 2157 May, [place] [id number] [place] [address] 47180- 7629 May, [place] [facility] [id number] [place] [address] 91672- 3585 Apr, Impingement syndrome, shoulder, left M75.42 and SLAP lesion of left shoulder S43.432A [place] [id number] [place] [address] 40293- 0466 Apr, [place] [id number] [place] [address] 55654- 4075 Apr, [facility] [facility] [id number] [place] [address] 89211- 8176 Apr, [place] [address] [place] [address] 90465- 3251 Apr, Cellulitis L03.90 ; Obese E66.9 ; Pain in left shoulder M25.512 and Edema, unspecified type R60.9 [place] [facility] [id number] [place] [address] 20789- 1646 Mar, Obese E66.9 ; Pain in left shoulder M25.512 and Other chronic pain G89.29 [place] [id number] [place] [address] 61384- 6103 Feb, Anxiety about health F41.8 [place] [id number] [place] [address] 49437- 7277 Feb, Obese E66.9 ; 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 ; Shortness of breath R06.02 ; Palpitations R00.2 ; Bipolar disorder with severe depression F31.4 and 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 E40 [place] [id number] [place] [address] 44544- 2921 Feb, Bipolar disorder with severe depression F31.4 [place] [address] 34708- 4399 Feb, Injury of left shoulder and upper arm, initial encounter S49.92XA [address] 06165- 7509 January, [address] 59636- 0600 Dec, Bipolar disorder with severe depression F31.[address] 99620- 1756 Dec, Obese E66.9 ; 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 ; Sleep apnea G47.30 ; Anxiety about health F41.8 and Bipolar disorder with severe depression F31.4 [place] [id number] [place] [address] 64221- 7562 Dec, Bipolar disorder with severe depression F31.4 [place] [id number] [place] [address] 93468- 4524 Dec, Bipolar disorder with severe depression F31.4 and Other senior care (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 Z79.[address] 08237- 7319 Nov, [facility] [id number] [place] [address] 67315- 6131 Nov, [address] 96779- 2498 Nov, [place] [id number] [place] [address] 14833- 7891 Nov, [place] [id number] [place] [address] 13031- 8126 Nov, Bipolar disorder with severe depression F31.4 [place] [id number] [place] [address] 76738- 9686 17 Nov, 2015 Bipolar disorder with severe depression F31.4 [place] [address] 04509- 1953 16 Nov, 2015 Anxiety about health F41.8 ; Obese E66.9 ; 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 ; Bipolar disorder with severe depression F31.4 and Family history of obesity Z83.49 [place] [id number] [place] [address] 32149- 9521 Nov, [address] 67789- 5306 Nov, Obese E66.9 ; 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 ; Cellulitis L03.90 ; Palpitations R00.2 ; Sleep apnea G47.30 and Shortness of breath R06.02 [place] [id number] [place] [address] 15832- 2596 Sep, UTI (urinary tract infection) N39.0 and Bronchitis J40 [place] [id number] [place] [address] 59815- 1724 Sep, [place] [id number] [place] [address] 05628- 5168 Mar, Left carpal tunnel syndrome 354.0 [place] [id number] [place] [address] 25968- 9467 Feb, Cellulitis 682.9 and Ankle edema 782.3 [place] [id number] [place] [address] 95768- 4037 Feb, [facility] [address] [address]- 3320 January, Carpal tunnel syndrome on left 354.0 [facility] [id number] [place] [address], [place] [address]- 1761 January, Shoulder pain, left 719.41 [facility] [id number] [place] [address]- 5671 January, [facility] [id number] [address]- 6262 Dec, [facility] [id number] [place] [address], [place] [address]- 9174 Dec, [facility] [id number] [place] [address]- 0094 Oct, [facility] [id number] [place] [address]- 9639 Oct, [facility] [id number] [place] [address]- 4393 Oct, [facility] [id number] [place] [address]- 6322 Oct, [facility] [id number] [address]- 6396 Sep, [facility] [id number] [place] [address]- 5393 Sep, [facility] [id number] [address]- 0964 Aug, [facility] [id number] 5292 Aug, [facility] [id number] [address]- 7425 Jun, [facility] [id number] [address]- 4892 Jun, [facility] [place] [facility] [address] [id number] [place] [address]- 9387 May, [facility] [place] [facility] [address] [id number] [place] [address]- 0036 May, [facility] [place] [facility] [address] [id number] [place] [address]- 4964 May, [facility] [place] [facility] [address] [id number] [place] [address]- 4255 May, [facility] [place] [facility] [address] [id number] [place] [address]- 0604 May, [facility] [place] [facility] [address] [id number] [place] [address]- 4963 May, [facility] [place] [facility] [address] [id number] [place] [address]- 4444 Apr, [facility] [place] [facility] [address] [id number] [place] [address]- 7783 Apr, [facility] [place] [facility] [address] [id number] [place] [address]- 8450 Apr, [facility] [place] [facility] [address] [id number] [place] [address]- 6434 Apr, [facility] [place] [facility] [address] [id number] [place] [address]- 3411 Apr, [facility] [place] [facility] [address] [id number] [place] [address]- 9996 Apr, [facility] [place] [facility] [address] [id number] [place] [address]- 0380 Apr, [facility] [place] [facility] [address] [id number] [place] [address]- 0909 Mar, [facility] [place] [facility] [address] [id number] [place] [address]- 6844 Mar, [facility] [place] [facility] [address] [id number] [place] [address]- 2546 Mar, [facility] [place] [facility] [address] [id number] [place] [address]- 7918 Mar, [facility] [place] [facility] [address] [id number] [place] [address]- 8774 Mar, [facility] [place] [facility] [address] [id number] [place] [address]- 8069 Mar, [facility] [place] [facility] [address] [id number] [place] [address]- 9634 Feb, [facility] [place] [facility] [address] [id number] [place] [address]- 9582 Feb, [facility] [place] [facility] [address] [id number] [place] [address]- 2140 Feb, [facility] [place] [facility] [address] [id number] [place] [address]- 8950 Feb, [facility] [place] [facility] [address] [id number] [place] [address]- 5539 January, [facility] [place] [facility] [address] [id number] [place] [address]- 8876 January, [facility] [place] [facility] [address] [id number] [place] [address]- 8471 January, [facility] [place] [facility] [address] [id number] [place] [address]- 5243 January, [facility] [place] [facility] [address] [id number] [place] [address]- 3418 January, [facility] [place] [facility] [address] [id number] [place] [address]- 4891 January, [facility] [place] [facility] [address] [id number] [place] 2350 January, [facility] [place] [facility] [address] [id number] [place] 4112 January, [facility] [place] [facility] [address] [id number] [place] [address]- 1434 January, [facility] [place] [facility] [address] [id number] [place] [address]- 7993 January, [facility] [place] [facility] [address] [id number] [place] [address]- 5108 January, [facility] [place] [facility] [address] [id number] [place] [address]- 7011 Dec, [facility] [place] [facility] [address] [id number] [place] [address]- 4362 Dec, [facility] [place] [facility] [address] [id number] [place] [address]- 6061 Dec, [facility] [place] [facility] [address] [id number] [place] [address]- 5513 Dec, [facility] [place] [facility] [address] [id number] [place] [address]- 3029 Nov, [facility] [place] [facility] [address] [id number] [place] [address]- 0814 Nov, [facility] [place] [facility] [address] [id number] [place] [address]- 4614 Oct, [facility] [place] [facility] [address] [id number] [place] [address]- 0150 Oct, [facility] [place] [facility] [address] [id number] [place] [address]- 0055 Oct, [facility] [place] [facility] [address] [id number] [place] [address]- 2858 Oct, [facility] [place] [facility] [address] [id number] [place] [address]- 3316 Sep, [facility] [place] [facility] [address] [id number] [place] 5964 Sep, [facility] [place] [facility] [address] [id number] [place] [address]- 3395 Sep, [facility] [address] [id number] [place] [address]- 1101 Sep, [facility] [place] [facility] [address] [id number] [place] [address]- 8105 Sep, [facility] [place] [facility] [address] [id number] [place] [address]- 9376 Sep, [facility] [place] [facility] [address] [id number] [place] [address]- 5322 Aug, [facility] [address] [id number] [place] [address]- 7117 Aug, [facility] [place] [facility] [address] [id number] [place] [address]- 3962 Aug, [facility] [place] [facility] [address] [id number] [place] [address]- 9769 Aug, [facility] [place] [facility] [address] [id number] [place] [address]- 2517 Aug, [facility] [place] [facility] [address] [id number] [place] [address]- 3233 Aug, [facility] [place] [facility] [address] [id number] [place] [address]- 7575 Aug, [facility] [place] [facility] [address] [id number] [address]- 3570 Aug, [facility] [place] [facility] [address] [id number] [place] [address]- 9974 Aug, [facility] [place] [facility] [address] [id number] [place] [address]- 8368 Aug, [facility] [place] [facility] [address] [id number] [place] [address]- 5632 15 Jul, 2013 [facility] [place] [facility] [address] [id number] [place] [address]- 3863 Jul, [facility] [place] [facility] [address] [id number] [place] [address]- 6235 Jul, [facility] [place] [facility] [address] [id number] [place] [address]- 3675 Jul, [facility] [place] [facility] [address] [id number] [place] [address]- 1604 Jun, [facility] [place] [facility] [address] [id number] [place] [address]- 3899 Jun, [facility] [place] [facility] [address] [id number] [place] [address]- 8647 Jun, [facility] [place] [facility] [address] [id number] [place] [address]- 4949 Jun, [facility] [place] [facility] [address] [id number] [place] [address]- 3467 Jun, [facility] [place] [facility] [address] [id number] [place] [address] May, [facility] [place] [facility] [address] [id number] [place] [address] May, [facility] [place] [facility] [address] [id number] [place] [address] Apr, [facility] [place] [facility] [address] [id number] [place] [address] Mar, [facility] [place] [address] [id number] [place] [address] Mar, [facility] [place] [facility] [address] [id number] [place] [address] Mar, [facility] [place] [facility] [address] [id number] [place] [address] Mar, [facility] [place] [facility] [address] [id number] [place] [address] Mar, [facility] [place] [facility] [address] [id number] [place] [address] Mar, [facility] [place] [facility] [address] [id number] [place] [address] 18 Feb, 2013 [facility] [address] [id number] [place] [address] 18 Feb, 2013 [facility] [place] [facility] [address] [id number] [place] [address] 16 Feb, 2013 [facility] [place] [facility] [address] [id number] [place] [address] 15 Feb, 2013 [facility] [address] [id number] [place] [address] 14 Feb, 2013 [facility] [place] [facility] [address] [id number] [place] [address] 13 Feb, 2013 [facility] [address] [id number] [place] [address] Feb, [facility] [address] [id number] [place] [address] January, [facility] [address] [id number] [place] [address] January, [facility] [address] [id number] [place] [address] Nov, [facility] [address] [id number] [place] [address] Nov, [facility] [facility] [address] [id number] [place] [address] Nov, [facility] [address] [id number] [place] [address] Nov, [facility] [address] [id number] [place] [address] Oct, [facility] [address] [id number] [place] [address] Oct, [facility] [address] [id number] [place] [address] Oct, [facility] [address] [id number] [place] [address] Sep, [facility] [address] [id number] [place] [address] Sep, [facility] [address] [facility] [id number] [place] [address] Sep, [facility] [address] [id number] [place] [address] Sep, [facility] [address] [id number] [place] [address] Aug, [facility] [address] [id number] [place] [address] Aug, [facility] [address] [facility] [id number] [place] [address] Jul, [facility] [address] [facility] [id number] [place] [address] Jul, [facility] [address] [facility] [id number] [place] [address] Jun, [facility] [address] [facility] [id number] [place] [address] Jun, [facility] [address] [facility] [id number] [place] [address] Jun, [facility] [address] [facility] [id number] [place] [address] Jun, [facility] [address] [id number] [place] [address] Jun, [facility] [address] [facility] [id number] [place] [address]- [address] Jun, [facility] [address] [facility] [id number] [place] [address] Jun, [facility] [address] [id number] [place] [address] Jun, [facility] [address] [id number] [place] [address] Jun, [facility] [place] [facility] [address] [id number] [place] [address] Jun, [facility] [place] [facility] [address] [id number] [place] [address] Jun, [facility] [place] [facility] [address] [id number] [place] [address] Jun, [facility] [place] [facility] [address] [id number] [place] [address] Jun, [facility] [place] [facility] [address] [id number] [place] [address] Jun, [facility] [place] [facility] [address] [id number] [place] [address] Jun, [facility] [place] [facility] [address] [id number] [place] [address] Jun, [facility] [place] [facility] [address] [id number] [place] [address] 29 May, 2012 [facility] [place] [facility] [address] [id number] [place] [address] May, [facility] [place] [facility] [address] [id number] [place] [address] 25 May, 2012 [facility] [place] [facility] [address] [id number] [place] [address] 24 May, 2012 [facility] [place] [facility] [address] [id number] [place] [address] May, [facility] [place] [facility] [address] [id number] [place] [address] Mar, [facility] [place] [facility] [address] [id number] [place] [address] Mar, [facility] [place] [facility] [address] [id number] [place] [address] Mar, [facility] [place] [facility] [address] [id number] [place] [address] Mar, [facility] [place] [facility] [address] [id number] [place] [address] Mar, [facility] [place] [facility] [address] [id number] [place] [address] Mar, [facility] [place] [facility] [address] [id number] [place] [address] Feb, [facility] [place] [facility] [address] [id number] [place] [address] Feb, [facility] [place] [facility] [address] [id number] [place] [address] Feb, [facility] [place] [facility] [address] [id number] [place] [address] Feb, [facility] [place] [facility] [address] [id number] [place] [address] Feb, [facility] [place] [facility] [address] [id number] [place] [address] January, [facility] [place] [facility] [address] [id number] [place] [address] Dec, [facility] [place] [facility] [address] [id number] [address] Dec, [facility] [place] [facility] [address] [id number] [place] [address] Dec, [facility] [place] [facility] [address] [id number] [place] [address] Dec, [facility] [place] [facility] [address] [id number] [place] [address] Dec, [facility] [place] [facility] [address] [id number] [address] Nov, [facility] [id number] [address] Oct, [facility] [id number] [address] [address] Sep, [facility] [id number] [address] Aug, [facility] [id number] [address] Jul, [facility] [id number] [place] [id number] Jul, [facility] [id number] [place] [address] Jul, [facility] [id number] [place] [address] [id number]- [address] Apr, [facility] [id number] [address] Apr, [facility] [id number] [address] Apr, [facility] [id number] [address] January, IMMUNIZATIONS No Known Immunizations SOCIAL HISTORY Never Assessed REASON FOR VISIT Swelling in the legs getting worse-Talha VELASQUEZ PLAN OF CARE Activity Details Follow Up prn Reason: VITAL SIGNS Height 65 in 2018-03-23 Weight 304.7 lbs 2018-03-23 Temperature 97.9 degrees Fahrenheit 2018-03-23 Heart Rate 80 bpm 2018-03-23 Respiratory Rate 20 2018-03-23 BMI 50.7 kg/m2 2018-03-23 Blood pressure systolic 134 mmHg 2018-03-23 Blood pressure diastolic 80 mmHg 2018-03-23 MEDICATIONS Medication Instructions Dosage Frequency Start Date End Date Duration Status Topamax Sprinkle 25 MG Orally. may swallow whole or open and sprinle on food and swallow immediately. 2 times a day 2 capsules 12h 24 January, 2018 30 day (s) Active Silvadene 1 % Externally TID PRN 1 application to affected area January, Active RESULTS No Results PROCEDURES Procedure Date Ordered Result Body Site [facility] VISIT ESTABLISHED PATIENT March 23, 2018 INSTRUCTIONS MEDICATIONS ADMINISTERED No Known Medications MEDICAL [...] bronchitis ER visit -04/15-06-30 Hospitalization History Celluliti BLE-[facility] 02/08/17 Hospitalization History Cellulitis-[facility] 04/22/17 Hospitalization History cellulitis-[facility] December 2017
--- OUTSIDE RECORDS SUMMARY | 2018-10-07 15:55 | XMS REPORT ---
Author Author CAROLYNE STARR Organization [facility] Address [address] [place] [address] Care Team Providers Care Territory Development Manager Name Role Phone CAROLYNE STARR Unavailable PROBLEMS Type Condition ICD9-CM Code MXU29-DU Code Onset Dates Condition Status SNOMED Code Problem Mild intermittent asthma without complication J45.20 Active 863761007 Problem Venous insufficiency I87.2 Active 07146313 Problem Morbid obesity E66.01 Active 905870089 Problem BMI 50.0-59.9, adult Z68.43 Active 423606916 Problem Bipolar affective disorder, currently depressed, mild F31.31 Active 611056972 Problem Methamphetamine use disorder, severe, 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 Active 60884258 Problem Cervical disc disease M50.90 Active 458432954 Problem Alcohol use disorder, mild, abuse F10.10 Active 65467993 Problem Cocaine use disorder, severe, 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 Active 23093947 Problem Bipolar disorder with severe depression F31.4 Active 025556370 Problem Pain in left shoulder M25.512 Active 43786926 Problem 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 788530774 Problem Sleep apnea G47.30 Active 85618463 Problem Cervical radiculopathy M54.12 Active 92033865 ALLERGIES No Known Allergies ENCOUNTERS Encounter Location Date Diagnosis [facility] [id number] [address] 11 Jun, 2018 [facility] [id number] [address] 13 May, 2018 Bronchitis J40 ; Cellulitis of left lower extremity L03.116 and BMI 45.0-49.9, adult Z68.42 [facility] [address] [facility] [id number] [address] 30 Apr, 2018 Cellulitis of left lower extremity L03.116 and BMI 45.0-49.9 , adult Z68.42 [place] [address] [address] 59[address] Apr, Cellulitis of left lower extremity L03.116 [place] [address] [place] [address] 61031- 0576 Apr, Cellulitis of left lower extremity L03.116 [place] [id number] [place] [address] 09251- 1889 Mar, [place] [id number] [place] [address] 73023- 5002 Mar, [place] [id number] [place] [address] 17076- 6216 Mar, Cellulitis of left lower limb L03.116 ; BMI 50.0-59.9, adult Z68.43 and Acute nasopharyngitis J00 [place] [id number] [place] [address] 26189- 9677 Feb, Non-intractable vomiting with nausea, unspecified vomiting type R11.2 ; 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 ; Venous insufficiency I87.2 and BMI 50.0-59.9 , adult Z68.43 [place] [address] [place] [address] 66897- 9977 Feb, Cellulitis of left lower extremity L03.116 and BMI 50.0-59.9 , adult Z68.43 [place] [address] [address] 0056 Feb, [place] [address] [place] [address] 96001- 6634 January, [place] [id number] [place] [address] 05710- 9509 January, Medicare annual wellness visit, initial Z00.00 ; Morbid obesity E66.01 ; Mild intermittent asthma without complication J45.20 ; Bipolar disorder with severe depression F31.4 ; 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 ; Venous insufficiency I87.2 and Encounter for immunization Z23 [facility] [address] [address]- 6930 January, [place] [address] 22816- 4468 January, Cellulitis of left lower extremity L03.116 and BMI 50.0-59.9 , adult Z68.43 [place] [address] 86994- 8974 Dec, Non-pressure chronic ulcer of left calf, 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 ; History of cellulitis Z87.2 and BMI 50.0-59.9, adult Z68.43 [facility] [id number] [place] [address] 58054 -5628 Dec, Cloudy urine R82.90 ; Cellulitis of lower extremity, unspecified laterality L03.119 and BMI 50.0-59.9, adult Z68.43 [place] [id number] [place] [address] 47874- 5860 Nov, Sleep apnea G47.[address] [address]- [address]68 08 Nov, 2017 Bipolar affective disorder, currently depressed, mild F31.31 ; Methamphetamine use disorder, severe, 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 ; Cocaine use disorder, severe, 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0-59.9, adult Z68.43 ; 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 and Morbid obesity E66.01 [facility] [address] [place] [address] 22929 -6613 Sep, Acute suppurative otitis media of right ear without spontaneous rupture of tympanic membrane, recurrence not specified H66.001 and BMI 60.0-69.9, adult Z68.44 [place] [id number] [place] [address] 89691- 0845 Sep, [facility] [id number] [place] [address] 75100- 1807 Aug, Cervical disc disease M50.90 [facility] [id number] [place] [address] 17933- 5236 Aug, [facility] [id number] [place] [address] 64226- 6262 Aug, Mild intermittent asthma without complication J45.20 ; Cervical radiculopathy M54.12 ; Venous insufficiency I87.2 ; Morbid obesity E66.01 and BMI 50.0-59.9, adult Z68.43 [place] [id number] [place] [address] 33851- 5918 Jun, [facility] [id number] [place] [address] 09531- 1808 May, [facility] [id number] [place] [address] 68425- 2911 Apr, [place] [id number] [place] [address] 94108- 9453 Apr, 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 [facility] [id number] [place] [address] [id number] Apr, [place] [id number] [place] [address] 22560- 7144 Apr, 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 [facility] [id number] [place] [address] 31072- 8055 Apr, Cellulitis of left lower extremity L03.116 ; Localized edema R60.0 ; 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 and Bipolar disorder with severe depression F31.4 [place] [id number] [place] [address] 64008- 8875 Apr, Cellulitis of unspecified part of limb L03.119 and 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 [place] [id number] [place] [address] 03358- 3137 Mar, [facility] [id number] [place] [address] 52112 -4885 Mar, Cellulitis of left lower limb L03.116 [place] [id number] [place] [address] 91889- 5810 Mar, 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 and Cellulitis L03.90 [place] [id number] [place] [address] 90459- 9445 Mar, Bronchitis J40 and Cellulitis L03.90 [place] [id number] [place] [address] 21057- 5999 January, [facility] [id number] [place] [address] 22975- 0094 January, [place] [id number] [place] [address] 80142- 8641 Nov, 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 ; Cellulitis L03.90 ; Obese E66.9 ; Pain in left shoulder M25.512 ; Localized edema R60.0 ; Sleep apnea G47.30 ; Anxiety about health F41.8 and Bipolar disorder with severe depression F31.4 [facility] [id number] [place] [address] 46030- 3922 Aug, Obese E66.9 ; 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 ; Sleep apnea G47.30 ; Cellulitis L03.90 ; Cellulitis of unspecified part of limb L03.119 ; Intractable tension-type headache, unspecified chronicity pattern G44.201 ; Concussion, without loss of consciousness, subsequent encounter S06.0X0D and Localized edema R60.0 [place] [address] 57645- 7746 Jun, [place] [address] 17293- 7468 Jun, 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 ; Other chronic pain G89.29 ; Cellulitis of unspecified part of limb L03.119 and Cutaneous abscess of limb, unspecified L02.419 [place] [address] 39610- 3847 Jun, [place] [address] 46819- 2563 May, [place] [address] 09946- 3805 May, [place] [address] 14157- 1540 Apr, Impingement syndrome, shoulder, left M75.42 and SLAP lesion of left shoulder S43.432A [place] [id number] [place] [address] 88376- 9076 Apr, [place] [id number] [place] [address] 63784- 3219 Apr, [place] [address] 39888- 0315 Apr, [place] [id number] [place] [address] 31498- 2818 Apr, Cellulitis L03.90 ; Obese E66.9 ; Pain in left shoulder M25.512 and Edema, unspecified type R60.9 [place] [id number] [place] [address] 35041- 8294 14 Mar, 2016 Obese E66.9 ; Pain in left shoulder M25.512 and Other chronic pain G89.29 [place] [id number] [place] [address] 73856- 8489 Feb, Anxiety about health F41.8 [place] [address] 96857- 7618 Feb, Obese E66.9 ; 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9 ; 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 ; Sleep apnea G47.30 ; Anxiety about health F41.8 and Bipolar disorder with severe depression F31.4 [place] [address] 00068- 0406 Dec, Bipolar disorder with severe depression F31.4 [place] [id number] [place] [address] 07637- 8145 Dec, Bipolar disorder with severe depression F31.4 and 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 [place] [address] [address]- 0955 30 Nov, 2015 [place] [id number] [place] [address] 04194- 3762 Nov, [place] [address] [place] [address] 01373- 7804 Nov, [place] [id number] [place] [address] 14795- 0856 Nov, [place] [id number] [place] [address] 30097- 1282 Nov, Bipolar disorder with severe depression F31.4 [place] [address] [place] [address] 60160- 1869 17 Nov, 2015 Bipolar disorder with severe depression F31.4 [place] [id number] [place] [address] 31593- 9691 16 Nov, 2015 Anxiety about health F41.8 ; Obese E66.9 ; 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 ; Bipolar disorder with severe depression F31.4 and Family history of obesity Z83.49 [place] [address] [place] [address] 69107- 1985 14 Nov, 2015 [place] [address] [place] [address] 26522- 5311 09 Nov, 2015 Obese E66.9 ; 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 ; Cellulitis L03.90 ; Palpitations R00.2 ; Sleep apnea G47.30 and Shortness of breath R06.02 [place] [id number] [place] [address] 46037- 9772 Sep, UTI (urinary tract infection) N39.0 and Bronchitis J40 [place] [address] [place] [address] 70715- 2520 Sep, [place] [id number] [address]- 2463 Mar, Left carpal tunnel syndrome 354.0 [facility] [id number] [place] [address] 73561- 1616 Feb, Cellulitis 682.9 and Ankle edema 782.3 [facility] [id number] [place] [address] 31545- 7128 Feb, [facility] [id number] [place] [address] 22372- 7731 January, Carpal tunnel syndrome on left 354.0 [facility] [id number] [place] [address] 08237- 4740 January, Shoulder pain, left 719.41 [facility] [id number] [place] [address] 25709- 9638 January, [facility] [id number] [place] [address] 44500- 2937 Dec, [facility] [address] [place] [address] 64068- 1497 Dec, [facility] [id number] [place] [address] 19716- 7739 Oct, [facility] [address] [address]- 7027 Oct, [facility] [address] [place] [address] 87419- 0408 Oct, [facility] [address] 3364 Oct, [facility] [id number] 1200 Sep, [facility] [address] [address]- 3300 Sep, [facility] [id number] [place] [address] 92966- 8234 Aug, [facility] [place] [facility] [address] [id number] [place] [address]- 1658 Aug, [facility] [place] [facility] [address] [id number] [place] [address]- 4352 Jun, [facility] [place] [facility] [address] [id number] [place] [address]- 2566 Jun, [facility] [place] [facility] [address] [id number] [place] [address]- 5546 May, [facility] [place] [facility] [address] [id number] [place] [address]- 5511 May, [facility] [place] [facility] [address] [id number] [place] [address]- 6329 May, [facility] [place] [facility] [address] [id number] [place] [address]- 9839 May, [facility] [place] [facility] [address] [id number] [place] [address]- 7145 May, [facility] [place] [facility] [address] [id number] [place] [address]- 9115 05 May, 2014 [facility] [place] [facility] [address] [id number] [place] [address]- 4952 Apr, [facility] [place] [facility] [address] [id number] [place] [address]- 1889 Apr, [facility] [place] [facility] [address] [id number] [place] [address]- 9985 Apr, [facility] [place] [facility] [address] [id number] [place] [address]- 5455 Apr, [facility] [place] [facility] [address] [id number] [place] [address]- 0746 Apr, [facility] [place] [facility] [address] [id number] [place] [address]- 9213 Apr, [facility] [place] [facility] [address] [id number] [place] [address]- 5504 Apr, [facility] [place] [facility] [address] [id number] [place] [address]- 2026 Mar, [facility] [place] [facility] [address] [id number] [place] [address]- 8646 Mar, [facility] [place] [facility] [address] [id number] [place] [address]- 8202 Mar, [facility] [place] [facility] [address] [id number] [place] [address]- 3871 Mar, [facility] [place] [facility] [address] [id number] [place] [address]- 1251 Mar, [facility] [place] [facility] [address] [id number] [place] [address]- 2574 Mar, [facility] [place] [facility] [address] [id number] [place] [address]- 0821 Feb, [facility] [place] [facility] [address] [id number] [place] [address]- 7282 Feb, [facility] [place] [facility] [address] [id number] [place] [address]- 1268 Feb, [facility] [place] [facility] [address] [id number] [place] [address]- 2184 Feb, [facility] [place] [facility] [address] [id number] [place] [address]- 6031 January, [facility] [place] [facility] [address] [id number] [place] [address]- 0550 January, [facility] [place] [facility] [address] [id number] [place] [address]- 3405 January, [facility] [place] [facility] [address] [id number] [place] [address]- 7326 January, [facility] [place] [facility] [address] [id number] [place] [address]- 3794 January, [facility] [place] [facility] [address] [id number] [place] [address]- 3780 January, [facility] [place] [facility] [address] [id number] [place] [address]- 9105 January, [facility] [place] [facility] [address] [id number] [place] [address]- 1521 January, [facility] [place] [facility] [address] [id number] [place] [address]- 5826 January, [facility] [place] [facility] [address] [id number] [place] [address]- 9851 January, [facility] [place] [facility] [address] [id number] [place] [address]- 1082 January, [facility] [place] [facility] [address] [id number] [place] [address]- 1829 Dec, [facility] [place] [facility] [address] [id number] [place] [address]- 7527 Dec, [facility] [place] [facility] [address] [id number] [place] [address]- 4743 Dec, [facility] [place] [facility] [address] [id number] [place] [address]- 3307 Dec, [facility] [place] [facility] [address] [id number] [place] [address]- 1377 Nov, [facility] [place] [facility] [address] [id number] [place] [address]- 6549 Nov, [facility] [place] [facility] [address] [id number] [place] [address]- 4009 Oct, [facility] [place] [facility] [address] [id number] [place] [address]- 0221 Oct, [facility] [place] [facility] [address] [id number] [place] [address]- 0222 Oct, [facility] [place] [facility] [address] [id number] [place] [address]- 7968 Oct, [facility] [address] [id number] [place] [address]- 6839 Sep, [facility] [place] [facility] [address] [id number] [place] [address]- 6919 Sep, [facility] [address] [id number] [place] [address]- 0035 Sep, [facility] [address] [id number] [place] [address]- 2846 Sep, [facility] [address] [id number] [place] [address]- 9367 Sep, [facility] [address] [id number] [place] [address]- 6717 Sep, [facility] [address] [id number] [place] [address]- 4437 Aug, [facility] [address] [id number] [place] [address]- 3903 Aug, [facility] [address] [id number] [place] [address]- 0244 Aug, [facility] [address] [id number] [place] [address]- 2225 Aug, [facility] [place] [facility] [address] [id number] [place] [address]- 3076 Aug, [facility] [place] [facility] [address] [id number] [place] [address]- 9528 Aug, [facility] [place] [facility] [address] [id number] [place] [address]- 6966 Aug, [facility] [place] [facility] [address] [id number] [place] 7640 Aug, [facility] [place] [facility] [address] [id number] [place] [address]- 6208 Aug, [facility] [place] [facility] [address] [id number] [place] [address]- 8239 Aug, [facility] [place] [facility] [address] [id number] [place] [address]- 6874 Jul, [facility] [place] [facility] [address] [id number] [place] [address]- 5438 Jul, [facility] [place] [facility] [address] [id number] [place] [address]- 9657 Jul, [facility] [address] [id number] [place] [address]- 5559 Jul, [facility] [place] [facility] [address] [id number] [place] [address]- 5724 Jun, [facility] [address] [id number] [place] [address]- 4072 Jun, [facility] [place] [facility] [address] [id number] [place] [address]- 3173 Jun, [facility] [place] [facility] [address] [id number] [place] [address]- 4979 Jun, [facility] [place] [facility] [address] [id number] [place] [address]- 3535 Jun, [facility] [place] [facility] [address] [id number] [place] [address]- 8438 May, [facility] [place] [facility] [address] [id number] [place] [address]- 2549 May, [facility] [place] [facility] [address] [id number] [place] [address]- 5013 Apr, [facility] [place] [facility] [address] [id number] [place] [address]- 2546 Mar, [facility] [place] [facility] [address] [id number] [place] [address]- 2549 Mar, [facility] [place] [facility] [address] [id number] [place] [address]- 0284 10 Mar, 2013 [facility] [address] [id number] [place] [address] 09 Mar, 2013 [facility] [place] [facility] [address] [id number] [place] [address] 05 Mar, 2013 [facility] [place] [facility] [address] [id number] [place] [address] Mar, [facility] [place] [facility] [address] [id number] [place] [address] 18 Feb, 2013 [facility] [place] [facility] [address] [id number] [place] [address] 18 Feb, 2013 [facility] [place] [facility] [address] [id number] [place] [address] 16 Feb, 2013 [facility] [place] [facility] [address] [id number] [place] [address] 15 Feb, 2013 [facility] [place] [facility] [address] [id number] [place] [address] 14 Feb, 2013 [facility] [place] [facility] [address] [id number] [place] [address] Feb, [facility] [place] [facility] [address] [id number] [place] [address] Feb, [facility] [place] [facility] [address] [id number] [place] [address] January, [facility] [place] [facility] [address] [id number] [place] [address] January, [facility] [place] [facility] [address] [id number] [place] [address] Nov, [facility] [place] [facility] [address] [id number] [place] [address] Nov, [facility] [place] [facility] [address] [id number] [place] [address] Nov, [facility] [place] [facility] [address] [id number] [place] [address] Nov, [facility] [place] [facility] [address] [id number] [place] [address] Oct, [facility] [place] [facility] [address] [id number] [place] [address] Oct, [facility] [place] [facility] [address] [id number] [place] [address] Oct, [facility] [place] [facility] [address] [id number] [place] [address] Sep, [facility] [place] [facility] [address] [id number] [place] [address] Sep, [facility] [place] [facility] [address] [id number] [place] [address] Sep, [facility] [place] [facility] [address] [id number] [place] [address] Sep, [facility] [place] [facility] [address] [id number] [place] [address] Aug, [facility] [place] [facility] [address] [id number] [place] [address] Aug, [facility] [place] [facility] [address] [id number] [place] [address] Jul, [facility] [place] [facility] [address] [id number] [place] [address] Jul, [facility] [place] [facility] [address] [id number] [place] [address] Jun, [facility] [place] [facility] [address] [id number] [place] [address] Jun, [facility] [place] [facility] [address] [id number] [place] [address] Jun, [facility] [place] [facility] [address] [id number] [place] [address] Jun, [facility] [place] [facility] [address] [id number] [place] [address] Jun, [facility] [place] [facility] [address] [id number] [place] [address] Jun, [facility] [place] [facility] [address] [id number] [place] [address] Jun, [facility] [place] [facility] [address] [id number] [place] [address] Jun, [facility] [place] [facility] [address] [id number] [place] [address] Jun, [facility] [place] [facility] [address] [id number] [place] [address] Jun, [facility] [place] [facility] [address] [id number] [place] [address] Jun, [facility] [place] [facility] [address] [id number] [place] [address] Jun, [facility] [place] [facility] [address] [id number] [place] [address] Jun, [facility] [place] [facility] [address] [id number] [place] [address] Jun, [facility] [place] [facility] [address] [id number] [place] [address] Jun, [facility] [place] [facility] [address] [id number] [place] [address] Jun, [facility] [place] [facility] [address] [id number] [place] [address] 29 May, 2012 [facility] [place] [facility] [address] [id number] [place] [address] May, [facility] [place] [facility] [address] [id number] [place] [address] May, [facility] [place] [facility] [address] [id number] [place] [address] May, [facility] [place] [facility] [address] [id number] [place] [address] May, [facility] [place] [facility] [address] [id number] [place] [address] Mar, [facility] [place] [facility] [address] [id number] [place] [address] Mar, [facility] [place] [facility] [address] [id number] [place] [address] Mar, [facility] [place] [facility] [address] [id number] [place] [address] Mar, [facility] [place] [facility] [address] [id number] [place] [address] Mar, [facility] [place] [facility] [address] [id number] [place] [address] Mar, [facility] [place] [facility] [address] [id number] [place] [address] Feb, [facility] [place] [facility] [address] [id number] [place] [address] Feb, [facility] [place] [facility] [address] [id number] [place] [address] Feb, [facility] [place] [facility] [address] [id number] [place] [address] Feb, [facility] [place] [facility] [address] [id number] [place] [address] Feb, [facility] [place] [facility] [address] [id number] [place] [address] January, [facility] [place] [facility] [address] [id number] [place] [address] Dec, [facility] [place] [facility] [address] [id number] [place] [address] Dec, [facility] [address] [id number] [place] [address] Dec, [facility] [address] [id number] [place] [address] Dec, [facility] [address] [id number] [place] [address] Dec, [facility] [address] [id number] [place] [address] Nov, [facility] [address] [id number] [place] [address] Oct, [facility] [address] [id number] [place] [address] Sep, [facility] [address] [id number] [place] [address] Aug, [facility] [address] [id number] [place] [address] Jul, [facility] [address] [id number] [place] [address] Jul, [facility] [address] [id number] [place] Jul, [facility] [address] [id number] [place] [address] Apr, [facility] [address] [id number] [place] [address] Apr, [facility] [address] [id number] [place] [address] Apr, [facility] [address] [id number] [place] [address] January, IMMUNIZATIONS No Known Immunizations SOCIAL HISTORY Never Assessed REASON FOR VISIT left leg infection Pt reports the leg infection she has is getting worse, states she finished the antibiotic around the first of the month and then had a few antibiotic from previous time that she finished [place] [place] PLAN OF CARE Activity Details Follow Up Will callafter lab Reason: VITAL SIGNS Height 65 in 2018-05-05 Weight 285.3 lbs 2018-05-05 Temperature 98.3 degrees Fahrenheit 2018-05-05 Heart Rate 88 bpm 2018-05-05 Respiratory Rate 22 2018-05-05 BMI 47.47 kg/m2 2018-05-05 Blood pressure systolic 154 mmHg 2018-05-05 Blood pressure diastolic 86 mmHg 2018-05-05 MEDICATIONS Medication Instructions Dosage Frequency Start Date End Date Duration Status Topamax Sprinkle 25 MG Orally. may swallow whole or open and sprinle on food and swallow immediately. 2 times a day 2 capsules 12h January, 30 day (s) Not-Taking Silvadene 1 % Externally TID PRN 1 application to affected area January, Active RESULTS No Results PROCEDURES Procedure Date Ordered Result Body Site LAB NOT BILLED BY [facility] May 05, 2018 VENIPUNCT, ROUTINE* May 05, 2018 [facility] VISIT ESTABLISHED PATIENT May 05, 2018 INSTRUCTIONS MEDICATIONS ADMINISTERED No Known Medications [...] bronchitis ER visit -04/15-06-30 Hospitalization History Celluliti BLE-H 02/08/17 Hospitalization History Cellulitis-[facility] 04/22/17 Hospitalization History cellulitis-[facility] December 2017
--- OUTSIDE RECORDS SUMMARY | 2018-10-07 15:56 | XMS REPORT ---
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 Name Role Phone CAROLYNE STARR Unavailable PROBLEMS Type Condition ICD9-CM Code TNA34-CP Code Onset Dates Condition Status SNOMED Code Problem Mild intermittent asthma without complication J45.20 Active 669762345 Problem Venous insufficiency I87.2 Active 97271396 Problem Morbid obesity E66.01 Active 819670670 Problem BMI 50.0-59.9, adult Z68.43 Active 027181457 Problem Bipolar affective disorder, currently depressed, mild F31.31 Active 050755054 Problem Methamphetamine use disorder, severe, 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 Active 33507934 Problem Cervical disc disease M50.90 Active 919742120 Problem Alcohol use disorder, mild, abuse F10.10 Active 36371150 Problem Cocaine use disorder, severe, 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 Active 73824246 Problem Bipolar disorder with severe depression F31.4 Active 914001860 Problem Pain in left shoulder M25.512 Active 67793607 Problem 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 586015072 Problem Sleep apnea G47.30 Active 03739879 Problem Cervical radiculopathy M54.12 Active 79622032 ALLERGIES No Information ENCOUNTERS Encounter Location Date Diagnosis [facility] [id number] [address] May, [facility] [address], [place] [address] Apr, Cellulitis of left lower extremity L03.116 and BMI 45.0-49.9 , adult Z68.42 [facility] [id number], [place] [address] Apr, Cellulitis of left lower extremity L03.116 [facility] [id number] [place] [address] 98043- 8581 Apr, Cellulitis of left lower extremity L03.116 [place] [id number] [place] [address] 21256- 7799 Mar, [place] [id number] [place] [address] 32298- 2184 Mar, [place] [id number] [place] [address] 37188- 3755 Mar, Cellulitis of left lower limb L03.116 ; BMI 50.0-59.9, adult Z68.43 and Acute nasopharyngitis J00 [place] [id number] [place] [address] 35413- 3638 Feb, 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 ; Venous insufficiency I87.2 and BMI 50.0-59.9, adult Z68.43 [place] [id number] [place] [address] 80109- 0777 Feb, Cellulitis of left lower extremity L03.116 and BMI 50.0-59.9 , adult Z68.43 [place] [id number] [place] [address] 19095- 0215 Feb, [place] [id number] [place] [address] 17493- 6077 January, [place] [id number] [place] [address] 43763- 0073 January, Medicare annual wellness visit, initial Z00.00 ; Morbid obesity E66.01 ; Mild intermittent asthma without complication J45.20 ; Bipolar disorder with severe depression F31.4 ; 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 ; Venous insufficiency I87.2 and Encounter for immunization Z23 [place] [address], [place] [address] January, [place] [id number] [place] [address] 74889- 0257 01 May, 2018 Cellulitis of left lower extremity L03.116 and BMI 50.0-59.9 , adult Z68.43 [place] [id number] [place] [address] 83072- 8544 Dec, Non-pressure chronic ulcer of left calf, 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 ; History of cellulitis Z87.2 and BMI 50.0-59.9, adult Z68.43 [facility] [place] [address] [address] Dec, Cloudy urine R82.90 ; Cellulitis of lower extremity, unspecified laterality L03.119 and BMI 50.0-59.9, adult Z68.43 [place] [address] [address]- 9423 Nov, Sleep apnea G47.[address] [address]- 5033 Nov, Bipolar affective disorder, currently depressed, mild F31.31 ; Methamphetamine use disorder, severe, 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 ; Cocaine use disorder, severe, 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 ; Alcohol use disorder, mild, abuse F10.10 and BMI 50.0-59.9, adult Z68.43 [place] [id number] [place] [address] 57946- 1221 15 Oct, 2017 BMI 50.0-59.9, adult Z68.43 ; Bipolar affective disorder, currently depressed, mild F31.31 ; Methamphetamine use disorder, severe, 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 ; Cocaine use disorder, severe, 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 and Alcohol use disorder, mild, abuse F10.10 [place] [address] 23699- 0756 14 Oct, [address] 9[address]12- 2523 Oct, BMI 50.0-59.9, adult Z68.43 ; 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 and Morbid obesity E66.01 [facility] [place] [address], [place] [address] Sep, Acute suppurative otitis media of right ear without spontaneous rupture of tympanic membrane, recurrence not specified H66.001 and BMI 60.0-69.9, adult Z68.44 [facility] [address] [place] [address] 69642- 6325 Sep, [facility] [id number] [place] [address] 84369- 9932 Aug, Cervical disc disease M50.90 [facility] [id number] [place] [address] 66236- 7961 Aug, [place] [id number] [place] [address] 02570- 3015 Aug, Mild intermittent asthma without complication J45.20 ; Cervical radiculopathy M54.12 ; Venous insufficiency I87.2 ; Morbid obesity E66.01 and BMI 50.0-59.9, adult Z68.43 [facility] [id number] [place] [address] 89181- 6234 Jun, [facility] [id number] [place] [address] 27521- 1249 May, [facility] [id number] [place] [address] 61890- 0643 Apr, [place] [id number] [place] [address] 34693- 1519 Apr, 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 [facility] [id number] [place] [address] [id number] Apr, [facility] [id number] [place] [address] 48218- 1645 Apr, 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 [facility] [id number] [place] [address] 53972- 3342 Apr, Cellulitis of left lower extremity L03.116 ; Localized edema R60.0 ; 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 and Bipolar disorder with severe depression F31.4 [facility] [id number] [place] [address] 94744- 2651 Apr, Cellulitis of unspecified part of limb L03.119 and 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 [facility] [id number] [place] [address] 20801- 9170 Mar, [facility] [id number] [place] [address] 84998 -3216 Mar, Cellulitis of left lower limb L03.116 [facility] [address] 32318- 7057 Mar, 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 and Cellulitis L03.90 [facility] [address] 33750- 8646 Mar, Bronchitis J40 and Cellulitis L03.90 [place] [id number] [place] [address] 30633- 1398 January, [facility] [address] 10906- 4819 January, [facility] [id number] [place] [address] 32061- 1645 Nov, 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 ; Cellulitis L03.90 ; Obese E66.9 ; Pain in left shoulder M25.512 ; Localized edema R60.0 ; Sleep apnea G47.30 ; Anxiety about health F41.8 and Bipolar disorder with severe depression F31.4 [facility] [id number] [place] [address] 59768- 5366 Aug, Obese E66.9 ; 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 ; Sleep apnea G47.30 ; Cellulitis L03.90 ; Cellulitis of unspecified part of limb L03.119 ; Intractable tension-type headache, unspecified chronicity pattern G44.201 ; Concussion, without loss of consciousness, subsequent encounter S06.0X0D and Localized edema R60.0 [place] [id number] [place] [address] 08291- 7905 Jun, [place] [id number] [place] [address] 71916- 8342 Jun, 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 ; Other chronic pain G89.29 ; Cellulitis of unspecified part of limb L03.119 and Cutaneous abscess of limb, unspecified L02.419 [place] [id number] [place] [address] 09264- 7237 Jun, [place] [id number] [place] [address] 21943- 8766 May, [place] [id number] [place] [address] 08674- 6063 May, [place] [id number] [place] [address] 06146- 4183 Apr, Impingement syndrome, shoulder, left M75.42 and SLAP lesion of left shoulder S43.432A [place] [id number] [place] [address] 49844- 9439 Apr, [place] [id number] [place] [address] 11675- 9329 Apr, [place] [id number] [place] [address] 54635- 6167 Apr, [place] [id number] [place] [address] 61853- 6254 Apr, Cellulitis L03.90 ; Obese E66.9 ; Pain in left shoulder M25.512 and Edema, unspecified type R60.9 [place] [id number] [place] [address] 89725- 6522 Mar, Obese E66.9 ; Pain in left shoulder M25.512 and Other chronic pain G89.29 [place] [id number] [place] [address] 13835- 4346 Feb, Anxiety about health F41.8 [place] [id number] [place] [address] 92186- 8267 Feb, Obese E66.9 ; 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 ; Shortness of breath R06.02 ; Palpitations R00.2 ; Bipolar disorder with severe depression F31.4 and 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 E40 [place] [address] 73234- 1712 Feb, Bipolar disorder with severe depression F31.[address] 93952- 5403 Feb, Injury of left shoulder and upper arm, initial encounter S49.92XA [address] 88569- 3852 January, [place] [address] 27049- 4732 Dec, Bipolar disorder with severe depression F31.4 [place] [address] 05507- 3411 Dec, Obese E66.9 ; 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 ; Sleep apnea G47.30 ; Anxiety about health F41.8 and Bipolar disorder with severe depression F31.4 [place] [id number] [place] [address] 61490- 6383 Dec, Bipolar disorder with severe depression F31.4 [place] [id number] [place] [address] 68395- 1113 Dec, Bipolar disorder with severe depression F31.4 and Other long-term (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 Z79.899 [place] [id number] [place] [address] 88015- 9310 Nov, [place] [address] 64197- 1396 Nov, [place] [address] [place] [address] 29683- 9028 Nov, [place] [id number] [place] [address] 64731- 8013 Nov, [place] [id number] [place] [address] 39705- 1659 Nov, Bipolar disorder with severe depression F31.4 [place] [id number] [place] [address] 67673- 8501 17 Nov, 2015 Bipolar disorder with severe depression F31.4 [place] [address] 61344- 5242 16 Nov, 2015 Anxiety about health F41.8 ; Obese E66.9 ; 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 ; Bipolar disorder with severe depression F31.4 and Family history of obesity Z83.49 [place] [id number] [place] [address] 43650- 0120 Nov, [place] [id number] [place] [address] 03491- 1836 Nov, Obese E66.9 ; 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 ; Cellulitis L03.90 ; Palpitations R00.2 ; Sleep apnea G47.30 and Shortness of breath R06.02 [place] [id number] [place] [address] 05585- 8403 Sep, UTI (urinary tract infection) N39.0 and Bronchitis J40 [place] [id number] [place] [address] 98519- 1344 Sep, [place] [id number] [place] [address] 00195- 4957 Mar, Left carpal tunnel syndrome 354.0 [place] [id number] [place] [address] 50314- 3833 Feb, Cellulitis 682.9 and Ankle edema 782.3 [place] [address], [place] [address]- 8399 Feb, [facility] [id number] [place] [address] 96990- 7846 January, Carpal tunnel syndrome on left 354.0 [facility] [address] [address]- 8849 January, Shoulder pain, left 719.41 [facility] [address], [place] [address]- 0495 January, [facility] [id number] [place] [address], [place] [address]- 8755 Dec, [facility] [id number], [place] [address]- 3213 Dec, [facility] [id number] [place] [address] 42266- 2919 Oct, [facility] [address] [place] [address]- 7519 Oct, [facility] [address] [place] [address]- 1629 Oct, [facility] [address] [place] [address]- 9478 Oct, [facility] [address], [place] [address]- 7239 Sep, [facility] [address], [place] [address]- 3978 Sep, [facility] [address], [place] [address]- 1967 Aug, [facility] [address], [place] [address]- 3336 Aug, [facility] [address] 8883 Jun, [facility] [place] [facility] [address] [id number] [place] [address]- 0463 Jun, [facility] [place] [facility] [address] [id number] [place] [address]- 0516 May, [facility] [place] [facility] [address] [id number] [place] [address]- 7012 May, [facility] [place] [facility] [address] [id number] [place] [address]- 3138 May, [facility] [place] [facility] [address] [id number] [place] [address]- 8662 May, [facility] [place] [facility] [address] [id number] [place] [address]- 3368 May, [facility] [place] [facility] [address] [id number] [place] [address]- 7109 May, [facility] [place] [facility] [address] [id number] [place] [address]- 9680 Apr, [facility] [place] [facility] [address] [id number] [place] [address]- 9306 Apr, [facility] [place] [facility] [address] [id number] [place] [address]- 0631 Apr, [facility] [place] [facility] [address] [id number] [place] [address]- 4274 Apr, [facility] [place] [facility] [address] [id number] [place] [address]- 0274 Apr, [facility] [place] [facility] [address] [id number] [place] [address]- 0298 Apr, [facility] [place] [facility] [address] [id number] [place] [address]- 4061 Apr, [facility] [place] [facility] [address] [id number] [place] [address]- 1341 Mar, [facility] [place] [facility] [address] [id number] [place] [address]- 2096 Mar, [facility] [place] [facility] [address] [id number] [place] [address]- 8867 Mar, [facility] [place] [facility] [address] [id number] [place] 4026 Mar, [facility] [place] [facility] [address] [id number] [place] [address]- 8603 Mar, [facility] [place] [facility] [address] [id number] [place] [address]- 5471 Mar, [facility] [place] [facility] [address] [id number] [place] [address]- 8540 Feb, [facility] [place] [facility] [address] [id number] [place] [address]- 2427 Feb, [facility] [place] [facility] [address] [id number] [place] [address]- 6732 Feb, [facility] [place] [facility] [address] [id number] [place] [address]- 9964 Feb, [facility] [place] [facility] [address] [id number] [place] [address]- 6229 January, [facility] [place] [facility] [address] [id number] [place] [address]- 6934 January, [facility] [place] [facility] [address] [id number] [place] [address]- 8323 January, [facility] [place] [facility] [address] [id number] [place] [address]- 8283 January, [facility] [place] [facility] [address] [id number] [place] [address]- 0049 January, [facility] [place] [facility] [address] [id number] [place] [address]- 0048 January, [facility] [place] [facility] [address] [id number] [place] [address]- 4989 January, [facility] [place] [facility] [address] [id number] [place] [address]- 6107 January, [facility] [address] [id number] [place] [address]- 2574 January, [facility] [place] [facility] [address] [id number] [place] [address]- 2946 January, [facility] [place] [facility] [address] [id number] [place] [address]- 1601 January, [facility] [place] [facility] [address] [id number] [place] [address]- 4393 Dec, [facility] [place] [facility] [address] [id number] [place] [address]- 1835 Dec, [facility] [place] [facility] [address] [id number] [place] [address]- 6235 Dec, [facility] [place] [facility] [address] [id number] [place] [address]- 9141 Dec, [facility] [place] [facility] [address] [id number] [place] [address]- 4735 Nov, [facility] [place] [facility] [address] [id number] [place] [address]- 6568 Nov, [facility] [place] [facility] [address] [id number] [place] [address]- 2456 Oct, [facility] [place] [facility] [address] [id number] [place] [address]- 9435 Oct, [facility] [place] [facility] [address] [id number] [place] [address]- 6065 Oct, [facility] [place] [facility] [address] [id number] [place] [address]- 8430 Oct, [facility] [place] [facility] [address] [id number] [place] 7371 Sep, [facility] [place] [facility] [address] [id number] [place] [address]- 7883 Sep, [facility] [address] [id number] [place] [address]- 3261 Sep, [facility] [place] [facility] [address] [id number] [place] [address]- 2394 Sep, [facility] [place] [facility] [address] [id number] [place] [address]- 4934 Sep, [facility] [place] [facility] [address] [id number] [place] [address]- 3683 Sep, [facility] [place] [facility] [address] [id number] [place] [address]- 8511 Aug, [facility] [place] [facility] [address] [id number] [place] [address]- 5132 Aug, [facility] [place] [facility] [address] [id number] [place] [address]- 5578 Aug, [facility] [place] [facility] [address] [id number] [place] [address]- 9035 Aug, [facility] [place] [facility] [address] [id number] [place] [address]- 7316 Aug, [facility] [place] [facility] [address] [id number] [place] [address]- 7505 Aug, [facility] [place] [facility] [address] [id number] [place] [address]- 5326 Aug, [facility] [place] [facility] [address] [id number] [address]- 2437 Aug, [facility] [place] [facility] [address] [id number] [place] [address]- 9324 Aug, [facility] [place] [facility] [address] [id number] [place] [address]- 6180 Aug, [facility] [place] [facility] [address] [id number] [place] [address]- 0675 15 Jul, 2013 [facility] [place] [facility] [address] [id number] [place] [address]- 9548 Jul, [facility] [address] [id number] [place] [address]- 8808 Jul, [facility] [place] [facility] [address] [id number] [place] 3837 Jul, [facility] [place] [facility] [address] [id number] [place] [address]- 8314 Jun, [facility] [place] [facility] [address] [id number] [place] [address]- 5466 Jun, [facility] [place] [facility] [address] [id number] [place] [address]- [address] Jun, [facility] [place] [facility] [address] [id number] [place] [address] Jun, [facility] [place] [facility] [address] [id number] [place] [address] Jun, [facility] [place] [facility] [address] [id number] [place] [address] May, [facility] [place] [facility] [address] [id number] [place] [address] May, [facility] [place] [facility] [address] [id number] [place] [address] Apr, [facility] [place] [facility] [address] [id number] [place] [address] Mar, [facility] [place] [facility] [address] [id number] [place] [address] Mar, [facility] [place] [facility] [address] [id number] [place] [address] Mar, [facility] [place] [facility] [address] [id number] [place] [address] Mar, [facility] [place] [facility] [address] [id number] [place] [address] Mar, [facility] [place] [facility] [address] [id number] [place] [address] 03 Mar, 2013 [facility] [place] [facility] [address] [id number] [place] [address] 18 Feb, 2013 [facility] [place] [facility] [address] [id number] [place] [address] 18 Feb, 2013 [facility] [place] [facility] [address] [id number] [place] [address] 16 Feb, 2013 [facility] [place] [facility] [address] [id number] [place] [address] 15 Feb, 2013 [facility] [place] [facility] [address] [id number] [place] [address] 14 Feb, 2013 [facility] [place] [facility] [address] [id number] [place] [address] 13 Feb, 2013 [facility] [place] [facility] [address] [id number] [place] [address] Feb, [facility] [place] [facility] [address] [id number] [place] [address] January, [facility] [place] [facility] [address] [id number] [place] [address] January, [facility] [place] [facility] [address] [id number] [place] [address] Nov, [facility] [place] [facility] [address] [id number] [place] [address] Nov, [facility] [place] [facility] [address] [id number] [place] [address] Nov, [facility] [place] [facility] [address] [id number] [place] [address] Nov, [facility] [place] [facility] [address] [id number] [place] [address] Oct, [facility] [place] [facility] [address] [id number] [place] [address] Oct, [facility] [place] [facility] [address] [id number] [place] [address] Oct, [facility] [place] [facility] [address] [id number] [place] [address] Sep, [facility] [place] [facility] [address] [id number] [place] [address] Sep, [facility] [place] [facility] [address] [id number] [place] [address] Sep, [facility] [place] [facility] [address] [id number] [place] [address] Sep, [facility] [place] [facility] [address] [id number] [place] [address] Aug, [facility] [place] [facility] [address] [id number] [place] [address] Aug, [facility] [place] [facility] [address] [address] [id number] [place] [address] Jul, [facility] [place] [facility] [address] [id number] [place] [address] Jul, [facility] [place] [facility] [address] [id number] [place] [address] Jun, [facility] [place] [facility] [address] [id number], [place] [address] Jun, [facility] [place] [facility] [address] [id number], [place] [address] Jun, [facility] [place] [facility] [address] [id number] [place] [address] Jun, [facility] [place] [facility] [address] [id number] [place] [address] Jun, [facility] [place] [facility] [address] [id number] [place] [address] Jun, [facility] [place] [facility] [address] [id number] [place] [address] Jun, [facility] [place] [facility] [address] [id number] [place] [address] Jun, [facility] [place] [facility] [address] [id number] [place] [address] Jun, [facility] [place] [facility] [address] [id number] [place] [address] Jun, [facility] [place] [facility] [address] [id number] [place] [address] Jun, [facility] [place] [facility] [address] [id number] [place] [address] Jun, [facility] [place] [facility] [address] [id number] [place] [address] Jun, [facility] [place] [facility] [address] [id number] [place] [address] Jun, [facility] [place] [facility] [address] [id number] [place] [address] Jun, [facility] [place] [facility] [address] [id number] [place] [address] Jun, [facility] [place] [facility] [address] [id number] [place] [address] 29 May, 2012 [facility] [place] [facility] [address] [id number] [place] [address] 26 May, 2012 [facility] [place] [facility] [address] [id number] [place] [address] 25 May, 2012 [facility] [place] [facility] [address] [id number] [place] [address] 24 May, 2012 [facility] [place] [facility] [address] [id number] [place] [address] 22 May, 2012 [facility] [place] [facility] [address] [id number] [place] [address] Mar, [facility] [place] [facility] [address] [id number] [place] [address] Mar, [facility] [place] [facility] [address] [id number] [place] [address] Mar, [facility] [place] [facility] [address] [id number] [place] [address] Mar, [facility] [place] [facility] [address] [id number] [place] [address] Mar, [facility] [place] [facility] [address] [id number] [place] [address] Mar, [facility] [place] [facility] [address] [id number] [place] [address] Feb, [facility] [place] [facility] [address] [id number] [place] [address] Feb, [facility] [place] [facility] [address] [id number] [place] [address] Feb, [facility] [place] [facility] [address] [id number] [place] [address] Feb, [facility] [place] [facility] [address] [id number] [place] [address] Feb, [facility] [place] [facility] [address] [id number] [place] [address] January, [facility] [place] [facility] [address] [id number] [place] [address] Dec, [facility] [place] [facility] [address] [id number] [place] [address] Dec, [facility] [place] [facility] [address] [id number] [place] [address] Dec, [facility] [place] [facility] [address] [id number] [place] [address] Dec, [facility] [place] [facility] [address] [id number], [place] [address] Dec, [facility] [address] [id number], [place] [address] Nov, [facility] [id number], [place] [address] Oct, [facility] [id number], [place] [address] Sep, [facility] [id number], [place] [address] Aug, [facility] [id number], [place] [address] Jul, [facility] [id number], [place] [address] Jul, [facility] [id number], [place] [address] Jul, [facility] [id number], [place] [address] Apr, [facility] [id number] [address] Apr, [facility] [address] [id number], [place] [address] Apr, [facility] [address] [id number], [place] [address] January, IMMUNIZATIONS No Known Immunizations SOCIAL HISTORY Never Assessed REASON FOR VISIT PLAN OF CARE VITAL SIGNS MEDICATIONS Medication Instructions Dosage Frequency Start Date End Date Duration Status Bactrim DS 800-160 MG Orally Twice a day 1 tablet 12h Mar,Mar 10 day(s) Active RESULTS No Results PROCEDURES No Known [...] Hospitalization History [facility]uliti [facility] 02/08/17 Hospitalization History Cellulitis-[facility] 04/22/17 Hospitalization History cellulitis-[facility] December 2017
--- OUTSIDE RECORDS SUMMARY | 2018-10-07 15:57 | XMS REPORT ---
Author Author CAROLYNE STARR [facility] Address [address] [place] [address] Care Team Providers Care Hydrology Teacher Name Role Phone CAROLYNE STARR Unavailable PROBLEMS Type Condition ICD9-CM Code XCT02-ZG Code Onset Dates Condition Status SNOMED Code Problem Mild intermittent asthma without complication J45.20 Active 064581005 Problem Venous insufficiency I87.2 Active 06732012 Problem Morbid obesity E66.01 Active 946807983 Problem BMI 50.0-59.9, adult Z68.43 Active 651873912 Problem Bipolar affective disorder, currently depressed, mild F31.31 Active 373355652 Problem Methamphetamine use disorder, severe, 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 Active 35309701 Problem Cervical disc disease M50.90 Active 961580602 Problem Alcohol use disorder, mild, abuse F10.10 Active 21708270 Problem Cocaine use disorder, severe, 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 Active 67467090 Problem Bipolar disorder with severe depression F31.4 Active 905881933 Problem Pain in left shoulder M25.512 Active 49917845 Problem 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 230746417 Problem Sleep apnea G47.30 Active 41802133 Problem Cervical radiculopathy M54.12 Active 08653457 ALLERGIES No Information ENCOUNTERS Encounter Location Date Diagnosis [facility] [id number], [place] [address] May, [facility] [address], [place] [address] Apr, Cellulitis of left lower extremity L03.116 and BMI 45.0-49.9 , adult Z68.42 [facility] [id number], [place] [address] 1704 Apr, Cellulitis of left lower extremity L03.116 [facility] [address] [place] [address] 03516- 4521 Apr, Cellulitis of left lower extremity L03.116 [place] [id number] [place] [address] 89031- 8891 Mar, [place] [id number] [place] [address] 51014- 5162 Mar, [place] [id number] [place] [address] 68422- 8074 Mar, Cellulitis of left lower limb L03.116 ; BMI 50.0-59.9, adult Z68.43 and Acute nasopharyngitis J00 [place] [id number] [place] [address] 33808- 0393 Feb, 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 ; Venous insufficiency I87.2 and BMI 50.0-59.9, adult Z68.43 [place] [id number] [place] [address] 67805- 7151 Feb, Cellulitis of left lower extremity L03.116 and BMI 50.0-59.9 , adult Z68.43 [place] [id number] [place] [address] 64915- 1381 Feb, [place] [id number] [place] [address] 76078- 7293 January, [place] [id number] [place] [address] 05421- 1712 January, Medicare annual wellness visit, initial Z00.00 ; Morbid obesity E66.01 ; Mild intermittent asthma without complication J45.20 ; Bipolar disorder with severe depression F31.4 ; 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 ; Venous insufficiency I87.2 and Encounter for immunization Z23 [place] [address], [place] [address] 6[address] January, [place] [id number] [place] [address] 92657- 2715 01 May, 2018 Cellulitis of left lower extremity L03.116 and BMI 50.0-59.9 , adult Z68.43 [place] [id number] [place] [address] 51437- 7613 Dec, Non-pressure chronic ulcer of left calf, 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 ; History of cellulitis Z87.2 and BMI 50.0-59.9, adult Z68.43 [facility] [place] [address] [address] Dec, Cloudy urine R82.90 ; Cellulitis of lower extremity, unspecified laterality L03.119 and BMI 50.0-59.9, adult Z68.43 [place] [address] [address]- 9197 Nov, Sleep apnea G47.[address] [address]- 6[address] Nov, Bipolar affective disorder, currently depressed, mild F31.31 ; Methamphetamine use disorder, severe, 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 ; Cocaine use disorder, severe, 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 ; Alcohol use disorder, mild, abuse F10.10 and BMI 50.0-59.9, adult Z68.43 [place] [id number] [place] [address] 98615- 8461 15 Oct, 2017 BMI 50.0-59.9, adult Z68.43 ; Bipolar affective disorder, currently depressed, mild F31.31 ; Methamphetamine use disorder, severe, 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 ; Cocaine use disorder, severe, 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 and Alcohol use disorder, mild, abuse F10.10 [place] [address] [address]75- 7949 14 Oct, [address] 08152- 8615 Oct, BMI 50.0-59.9, adult Z68.43 ; 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 and Morbid obesity E66.01 [facility] [place] [address], [place] [address] Sep, Acute suppurative otitis media of right ear without spontaneous rupture of tympanic membrane, recurrence not specified H66.001 and BMI 60.0-69.9, adult Z68.44 [facility] [address] [place] [address] 59487- 1375 Sep, [facility] [id number] [place] [address] 99389- 0423 Aug, Cervical disc disease M50.90 [facility] [id number] [place] [address] 51770- 1291 Aug, [place] [id number] [place] [address] 41822- 0035 Aug, Mild intermittent asthma without complication J45.20 ; Cervical radiculopathy M54.12 ; Venous insufficiency I87.2 ; Morbid obesity E66.01 and BMI 50.0-59.9, adult Z68.43 [facility] [id number] [place] [address] 85848- 3455 Jun, [facility] [id number] [place] [address] 42386- 5267 May, [facility] [id number] [place] [address] 42508- 1971 Apr, [place] [id number] [place] [address] 37725- 2523 Apr, 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 [facility] [id number] [place] [address] [id number] Apr, [facility] [id number] [place] [address] 23879- 2420 Apr, 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 [facility] [id number] [place] [address] 74667- 7443 Apr, Cellulitis of left lower extremity L03.116 ; Localized edema R60.0 ; 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 and Bipolar disorder with severe depression F31.4 [facility] [id number] [place] [address] 74528- 2589 Apr, Cellulitis of unspecified part of limb L03.119 and 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 [facility] [id number] [place] [address] 29944- 1215 Mar, [facility] [id number] [place] [address] 35303 -8334 Mar, Cellulitis of left lower limb L03.116 [facility] [address] 15576- 0450 Mar, 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 and Cellulitis L03.90 [facility] [address] 52470- 0932 Mar, Bronchitis J40 and Cellulitis L03.90 [place] [id number] [place] [address] 41097- 1516 January, [facility] [address] 66923- 5966 January, [facility] [id number] [place] [address] 53837- 6217 Nov, 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 ; Cellulitis L03.90 ; Obese E66.9 ; Pain in left shoulder M25.512 ; Localized edema R60.0 ; Sleep apnea G47.30 ; Anxiety about health F41.8 and Bipolar disorder with severe depression F31.4 [facility] [id number] [place] [address] 72561- 1188 Aug, Obese E66.9 ; 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 ; Sleep apnea G47.30 ; Cellulitis L03.90 ; Cellulitis of unspecified part of limb L03.119 ; Intractable tension-type headache, unspecified chronicity pattern G44.201 ; Concussion, without loss of consciousness, subsequent encounter S06.0X0D and Localized edema R60.0 [place] [id number] [place] [address] 10237- 8584 Jun, [place] [id number] [place] [address] 74336- 6548 Jun, 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 ; Other chronic pain G89.29 ; Cellulitis of unspecified part of limb L03.119 and Cutaneous abscess of limb, unspecified L02.419 [place] [id number] [place] [address] 79830- 5088 Jun, [place] [id number] [place] [address] 22216- 2192 May, [place] [id number] [place] [address] 52413- 5249 May, [place] [id number] [place] [address] 55491- 6551 Apr, Impingement syndrome, shoulder, left M75.42 and SLAP lesion of left shoulder S43.432A [place] [id number] [place] [address] 67748- 8362 Apr, [place] [id number] [place] [address] 25885- 3685 Apr, [place] [id number] [place] [address] 04228- 5717 Apr, [place] [id number] [place] [address] 19712- 7089 Apr, Cellulitis L03.90 ; Obese E66.9 ; Pain in left shoulder M25.512 and Edema, unspecified type R60.9 [place] [id number] [place] [address] 20864- 1807 Mar, Obese E66.9 ; Pain in left shoulder M25.512 and Other chronic pain G89.29 [place] [id number] [place] [address] 21239- 5968 Feb, Anxiety about health F41.8 [place] [id number] [place] [address] 92157- 8929 Feb, Obese E66.9 ; 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30 ; Anxiety about health F41.8 and Bipolar disorder with severe depression F31.4 [place] [id number] [place] [address] 48424- 4074 Dec, Bipolar disorder with severe depression F31.4 [place] [id number] [place] [address] 97306- 0774 Dec, Bipolar disorder with severe depression F31.4 and Other care home (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 Z79.899 [place] [id number] [place] [address] 58504- 0577 Nov, [place] [address] 40186- 8337 Nov, [place] [address] [place] [address] 89844- 3800 Nov, [place] [id number] [place] [address] 81533- 1235 Nov, [place] [id number] [place] [address] 93775- 0014 Nov, Bipolar disorder with severe depression F31.4 [place] [id number] [place] [address] 87819- 4088 17 Nov, 2015 Bipolar disorder with severe depression F31.4 [place] [address] 66826- 9054 16 Nov, 2015 Anxiety about health F41.8 ; Obese E66.9 ; 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 ; Bipolar disorder with severe depression F31.4 and Family history of obesity Z83.49 [place] [id number] [place] [address] 22575- 5466 Nov, [place] [id number] [place] [address] 63407- 2182 Nov, Obese E66.9 ; 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 ; Cellulitis L03.90 ; Palpitations R00.2 ; Sleep apnea G47.30 and Shortness of breath R06.02 [place] [id number] [place] [address] 85249- 1088 Sep, UTI (urinary tract infection) N39.0 and Bronchitis J40 [place] [id number] [place] [address] 74212- 3112 Sep, [place] [id number] [place] [address] 49043- 5857 Mar, Left carpal tunnel syndrome 354.0 [place] [id number] [place] [address] 49777- 1332 Feb, Cellulitis 682.9 and Ankle edema 782.3 [place] [address], [place] [address]- 9371 Feb, [facility] [id number] [place] [address] 79522- 4884 January, Carpal tunnel syndrome on left 354.0 [facility] [address] [place] [address]- 1770 January, Shoulder pain, left 719.41 [facility] [address], [place] [address]- 3802 January, [facility] [address] [place] [address], [place] [address]- 3796 Dec, [facility] [id number] [address]- 2899 Dec, [facility] [address] [place] [address] 23231- 7062 Oct, [facility] [address] [place] [address]- 4976 Oct, [facility] [address] [place] [address]- 1716 Oct, [facility] [address] [place] [address]- 4814 Oct, [facility] [address], [place] [address]- 4182 Sep, [facility] [address], [place] [address]- 8324 Sep, [facility] [address], [place] [address]- 2150 Aug, [facility] [address], [place] [address]- 2596 Aug, [facility] [address] 1077 Jun, [facility] [place] [facility] [address] [id number] [place] [address]- 8931 Jun, [facility] [place] [facility] [address] [id number] [place] [address]- 7013 May, [facility] [place] [facility] [address] [id number] [place] [address]- 5117 May, [facility] [place] [facility] [address] [id number] [place] [address]- 4581 May, [facility] [place] [facility] [address] [id number] [place] [address]- 9230 May, [facility] [place] [facility] [address] [id number] [place] [address]- 5874 May, [facility] [place] [facility] [address] [id number] [place] [address]- 4088 May, [facility] [place] [facility] [address] [id number] [place] [address]- 7758 Apr, [facility] [place] [facility] [address] [id number] [place] [address]- 9097 Apr, [facility] [place] [facility] [address] [id number] [place] [address]- 7143 Apr, [facility] [place] [facility] [address] [id number] [place] [address]- 5668 Apr, [facility] [place] [facility] [address] [id number] [place] [address]- 5080 Apr, [facility] [place] [facility] [address] [id number] [place] [address]- 6603 Apr, [facility] [place] [facility] [address] [id number] [place] [address]- 8984 Apr, [facility] [place] [facility] [address] [id number] [place] [address]- 0563 Mar, [facility] [place] [facility] [address] [id number] [place] [address]- 1096 Mar, [facility] [place] [facility] [address] [id number] [place] [address]- 7340 Mar, [facility] [place] [facility] [address] [id number] [place] 2046 Mar, [facility] [place] [facility] [address] [id number] [place] [address]- 8179 Mar, [facility] [place] [facility] [address] [id number] [place] [address]- 6308 Mar, [facility] [place] [facility] [address] [id number] [place] [address]- 0459 Feb, [facility] [place] [facility] [address] [id number] [place] [address]- 7238 Feb, [facility] [place] [facility] [address] [id number] [place] [address]- 1949 Feb, [facility] [place] [facility] [address] [id number] [place] [address]- 1214 Feb, [facility] [place] [facility] [address] [id number] [place] [address]- 8225 January, [facility] [place] [facility] [address] [id number] [place] [address]- 3854 January, [facility] [place] [facility] [address] [id number] [place] [address]- 6376 January, [facility] [place] [facility] [address] [id number] [place] [address]- 3651 January, [facility] [place] [facility] [address] [id number] [place] [address]- 8208 January, [facility] [place] [facility] [address] [id number] [place] [address]- 6699 January, [facility] [place] [facility] [address] [id number] [place] [address]- 5596 January, [facility] [place] [facility] [address] [id number] [place] [address]- 0904 January, [facility] [address] [id number] [place] [address]- 5811 January, [facility] [place] [facility] [address] [id number] [place] [address]- 0996 January, [facility] [place] [facility] [address] [id number] [place] [address]- 3933 January, [facility] [place] [facility] [address] [id number] [place] [address]- 7563 Dec, [facility] [place] [facility] [address] [id number] [place] [address]- 0433 Dec, [facility] [place] [facility] [address] [id number] [place] [address]- 6388 Dec, [facility] [place] [facility] [address] [id number] [place] [address]- 8897 Dec, [facility] [place] [facility] [address] [id number] [place] [address]- 6126 Nov, [facility] [place] [facility] [address] [id number] [place] [address]- 6876 Nov, [facility] [place] [facility] [address] [id number] [place] [address]- 0063 Oct, [facility] [place] [facility] [address] [id number] [place] [address]- 3117 Oct, [facility] [place] [facility] [address] [id number] [place] [address]- 9774 Oct, [facility] [place] [facility] [address] [id number] [place] [address]- 0271 Oct, [facility] [place] [facility] [address] [id number] [place] 8178 Sep, [facility] [place] [facility] [address] [id number] [place] [address]- 3044 Sep, [facility] [address] [id number] [place] [address]- 2051 Sep, [facility] [place] [facility] [address] [id number] [place] [address]- 1446 Sep, [facility] [place] [facility] [address] [id number] [place] [address]- 3839 Sep, [facility] [place] [facility] [address] [id number] [place] [address]- 9750 Sep, [facility] [place] [facility] [address] [id number] [place] [address]- 9375 Aug, [facility] [place] [facility] [address] [id number] [place] [address]- 4340 Aug, [facility] [place] [facility] [address] [id number] [place] [address]- 3727 Aug, [facility] [place] [facility] [address] [id number] [place] [address]- 7160 Aug, [facility] [place] [facility] [address] [id number] [place] [address]- 9889 Aug, [facility] [place] [facility] [address] [id number] [place] [address]- 3077 Aug, [facility] [place] [facility] [address] [id number] [place] [address]- 9251 Aug, [facility] [place] [facility] [address] [id number] [address]- 8708 Aug, [facility] [place] [facility] [address] [id number] [place] [address]- 3056 Aug, [facility] [place] [facility] [address] [id number] [place] [address]- 1994 Aug, [facility] [place] [facility] [address] [id number] [place] [address]- 4642 15 Jul, 2013 [facility] [place] [facility] [address] [id number] [place] [address]- 5821 Jul, [facility] [address] [id number] [place] [address]- 1096 Jul, [facility] [place] [facility] [address] [id number] [place] 1386 Jul, [facility] [place] [facility] [address] [id number] [place] [address]- 4620 Jun, [facility] [place] [facility] [address] [id number] [place] [address]- 4140 Jun, [facility] [place] [facility] [address] [id number] [place] [address]- 2930 Jun, [facility] [place] [facility] [address] [id number] [place] [address]- 7234 Jun, [facility] [place] [facility] [address] [id number] [place] [address]- 0649 Jun, [facility] [place] [facility] [address] [id number] [place] [address]- 1618 May, [facility] [place] [facility] [address] [id number] [place] [address]- 1449 May, [facility] [place] [facility] [address] [id number] [place] [address] Apr, [facility] [place] [facility] [address] [id number] [place] [address] Mar, [facility] [place] [facility] [address] [id number] [place] [address] Mar, [facility] [place] [facility] [address] [id number] [place] [address] Mar, [facility] [place] [facility] [address] [id number] [place] [address] Mar, [facility] [place] [facility] [address] [id number] [place] [address] Mar, [facility] [place] [facility] [address] [id number] [place] [address] 03 Mar, 2013 [facility] [place] [facility] [address] [id number] [place] [address] 18 Feb, 2013 [facility] [place] [facility] [address] [id number] [place] [address] 18 Feb, 2013 [facility] [place] [facility] [address] [id number] [place] [address] 16 Feb, 2013 [facility] [place] [facility] [address] [id number] [place] [address] 15 Feb, 2013 [facility] [place] [facility] [address] [id number] [place] [address] 14 Feb, 2013 [facility] [place] [facility] [address] [id number] [place] [address] 13 Feb, 2013 [facility] [place] [facility] [address] [id number] [place] [address] Feb, [facility] [place] [facility] [address] [id number] [place] [address] January, [facility] [place] [facility] [address] [id number] [place] [address] January, [facility] [place] [facility] [address] [id number] [place] [address] Nov, [facility] [place] [facility] [address] [id number] [place] [address] Nov, [facility] [place] [facility] [address] [id number] [place] [address] Nov, [facility] [place] [facility] [address] [id number] [place] [address] Nov, [facility] [place] [facility] [address] [id number] [place] [address] Oct, [facility] [place] [facility] [address] [id number] [place] [address] Oct, [facility] [place] [facility] [address] [id number] [place] [address] Oct, [facility] [place] [facility] [address] [id number] [place] [address] Sep, [facility] [place] [facility] [address] [id number] [place] [address] Sep, [facility] [place] [facility] [address] [id number] [place] [address] Sep, [facility] [place] [facility] [address] [id number] [place] [address] Sep, [facility] [place] [facility] [address] [id number] [place] [address] Aug, [facility] [place] [facility] [address] [id number] [place] [address] Aug, [facility] [place] [facility] [address] [id number] [place] [address] Jul, [facility] [place] [facility] [address] [id number] [place] [address] Jul, [facility] [place] [facility] [address] [id number] [place] [address] Jun, [facility] [place] [facility] [address] [id number], [place] [address] Jun, [facility] [place] [facility] [address] [id number], [place] [address] Jun, [facility] [place] [facility] [address] [id number] [place] [address] Jun, [facility] [place] [facility] [address] [id number] [place] [address] Jun, [facility] [place] [facility] [address] [id number] [place] [address] Jun, [facility] [place] [facility] [address] [id number] [place] [address] Jun, [facility] [place] [facility] [address] [id number] [place] [address] Jun, [facility] [place] [facility] [address] [id number] [place] [address] Jun, [facility] [place] [facility] [address] [id number] [place] [address] Jun, [facility] [place] [facility] [address] [id number] [place] [address] Jun, [facility] [place] [facility] [address] [id number] [place] [address] Jun, [facility] [place] [facility] [address] [id number] [place] [address] Jun, [facility] [place] [facility] [address] [id number] [place] [address] Jun, [facility] [place] [facility] [address] [id number] [place] [address] Jun, [facility] [place] [facility] [address] [id number] [place] [address] Jun, [facility] [place] [facility] [address] [id number] [place] [address] 29 May, 2012 [facility] [place] [facility] [address] [id number] [place] [address] 26 May, 2012 [facility] [place] [facility] [address] [id number] [place] [address] 25 May, 2012 [facility] [place] [facility] [address] [id number] [place] [address] 24 May, 2012 [facility] [place] [facility] [address] [id number] [place] [address] 22 May, 2012 [facility] [place] [facility] [address] [id number] [place] [address] Mar, [facility] [place] [facility] [address] [id number] [place] [address] Mar, [facility] [place] [facility] [address] [id number] [place] [address] Mar, [facility] [place] [facility] [address] [id number] [place] [address] Mar, [facility] [place] [facility] [address] [id number] [place] [address] Mar, [facility] [place] [facility] [address] [id number] [place] [address] Mar, [facility] [place] [facility] [address] [id number] [place] [address] Feb, [facility] [place] [facility] [address] [id number] [place] [address] Feb, [facility] [place] [facility] [address] [id number] [place] [address] Feb, [facility] [place] [facility] [address] [id number] [place] [address] Feb, [facility] [place] [facility] [address] [id number] [place] [address] Feb, [facility] [place] [facility] [address] [id number] [place] [address] January, [facility] [place] [facility] [address] [id number] [place] [address] Dec, [facility] [place] [facility] [address] [id number] [place] [address] Dec, [facility] [place] [facility] [address] [id number] [place] [address] Dec, [facility] [place] [facility] [address] [id number] [place] [address] Dec, [facility] [place] [facility] [address] [id number] [address] Dec, [facility] [address] [id number] [address] Nov, [facility] [id number] [address] Oct, [facility] [id number], [place] [address] Sep, [facility] [id number], [place] [address] Aug, [facility] [id number], [place] [address] Jul, [facility] [id number], [place] [address] Jul, [facility] [id number], [place] [address] Jul, [facility] [id number], [place] [address] Apr, [facility] [id number] [address] [address] Apr, [facility] [address] [id number], [place] [address] Apr, [facility] [address] [id number], [place] [address] January, IMMUNIZATIONS No Known Immunizations SOCIAL HISTORY [...] History Celluliti BLE-[facility] 02/08/17 Hospitalization History Cellulitis-[facility] 04/22/17 Hospitalization History cellulitis-[facility] December 2017
--- OUTSIDE RECORDS SUMMARY | 2018-10-07 15:57 | XMS REPORT ---
Author Author CAROLYNE STARR [facility] Address [address] [place] [address] Care Team Providers Care Filling Hauler Weaving Name Role Phone CAROLYNE STARR Unavailable PROBLEMS Type Condition ICD9-CM Code QQK71-UK Code Onset Dates Condition Status SNOMED Code Problem Mild intermittent asthma without complication J45.20 Active 648912406 Problem Venous insufficiency I87.2 Active 21950224 Problem Morbid obesity E66.01 Active 989879795 Problem BMI 50.0-59.9, adult Z68.43 Active 695700706 Problem Bipolar affective disorder, currently depressed, mild F31.31 Active 554024317 Problem Methamphetamine use disorder, severe, 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 Active 96029368 Problem Cervical disc disease M50.90 Active 371020990 Problem Alcohol use disorder, mild, abuse F10.10 Active 00448269 Problem Cocaine use disorder, severe, 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 Active 93239964 Problem Bipolar disorder with severe depression F31.4 Active 151174081 Problem Pain in left shoulder M25.512 Active 16439513 Problem 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 301017807 Problem Sleep apnea G47.30 Active 39459242 Problem Cervical radiculopathy M54.12 Active 16432592 ALLERGIES No Known Allergies ENCOUNTERS Encounter Location Date Diagnosis [facility] [id number] [address] May, [facility] [address], [place] [address] Apr, Cellulitis of left lower extremity L03.116 and BMI 45.0-49.9 , adult Z68.42 [facility] [id number] [address] Apr, Cellulitis of left lower extremity L03.116 [facility] [address], [place] [address] Apr, Cellulitis of left lower extremity L03.116 [place] [address] [address] Mar, [place] [id number] [place] [address] 10407- 1376 Mar, [place] [id number] [place] [address] 53554- 8843 Mar, Cellulitis of left lower limb L03.116 ; BMI 50.0-59.9, adult Z68.43 and Acute nasopharyngitis J00 [place] [id number] [place] [address] 10897- 6848 Feb, 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 ; Venous insufficiency I87.2 and BMI 50.0-59.9, adult Z68.43 [place] [id number] [place] [address] 84733- 1122 Feb, Cellulitis of left lower extremity L03.116 and BMI 50.0-59.9 , adult Z68.43 [place] [id number] [place] [address] 75098- 3743 Feb, [place] [id number] [place] [address] 83844- 6227 January, [place] [id number] [place] [address] 47512- 1616 January, Medicare annual wellness visit, initial Z00.00 ; Morbid obesity E66.01 ; Mild intermittent asthma without complication J45.20 ; Bipolar disorder with severe depression F31.4 ; 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 ; Venous insufficiency I87.2 and Encounter for immunization Z23 [facility] [address] [address] January, [place] [address] [address] 5533 January, Cellulitis of left lower extremity L03.116 and BMI 50.0-59.9 , adult Z68.43 [place] [id number] [place] [address] 84890- 7943 Dec, Non-pressure chronic ulcer of left calf, 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 ; History of cellulitis Z87.2 and BMI 50.0-59.9, adult Z68.43 [facility] [address] [address] Dec, Cloudy urine R82.90 ; Cellulitis of lower extremity, unspecified laterality L03.119 and BMI 50.0-59.9, adult Z68.43 [place] [address] [address]21- 4542 Nov, Sleep apnea G47.[address] [address]- 6689 Nov, Bipolar affective disorder, currently depressed, mild F31.31 ; Methamphetamine use disorder, severe, 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 ; Cocaine use disorder, severe, 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 ; Alcohol use disorder, mild, abuse F10.10 and BMI 50.0-59.9, adult Z68.43 [place] [id number] [place] [address] 07632- 5674 15 Oct, 2017 BMI 50.0-59.9, adult Z68.43 ; Bipolar affective disorder, currently depressed, mild F31.31 ; Methamphetamine use disorder, severe, 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 [address] [place] [address] 14453 -8528 Sep, Acute suppurative otitis media of right ear without spontaneous rupture of tympanic membrane, recurrence not specified H66.001 and BMI 60.0-69.9, adult Z68.44 [facility] [id number] [place] [address] 99999- 3001 Sep, [facility] [id number] [place] [address] 97557- 0135 Aug, Cervical disc disease M50.90 [facility] [id number] [place] [address] 28169- 9243 Aug, [place] [id number] [place] [address] 22707- 4217 Aug, Mild intermittent asthma without complication J45.20 ; Cervical radiculopathy M54.12 ; Venous insufficiency I87.2 ; Morbid obesity E66.01 and BMI 50.0-59.9, adult Z68.43 [facility] [id number] [place] [address] 21156- 8059 Jun, [facility] [id number] [place] [address] 42385- 2731 May, [facility] [id number] [place] [address] 95368- 2558 Apr, [place] [id number] [place] [address] 20017- 9148 Apr, 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 [facility] [id number] [place] [id number] Apr, [facility] [id number] [place] [address] 01525- 9093 Apr, 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 [facility] [id number] [place] [address] 41839- 6697 Apr, Cellulitis of left lower extremity L03.116 ; Localized edema R60.0 ; 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 and Bipolar disorder with severe depression F31.4 [facility] [id number] [place] [address] 20067- 0606 Apr, Cellulitis of unspecified part of limb L03.119 and 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 [facility] [address] 57780- 8458 Mar, [facility] [address] [address]374 -0866 Mar, Cellulitis of left lower limb L03.116 [facility] [address] 65730- 0231 Mar, 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 and Cellulitis L03.90 [facility] [address] 33266- 4870 Mar, Bronchitis J40 and Cellulitis L03.90 [place] [id number] [place] [address] 12132- 0204 January, [facility] [address] 88673- 9721 January, [facility] [id number] [place] [address] 69773- 7043 Nov, 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 ; Cellulitis L03.90 ; Obese E66.9 ; Pain in left shoulder M25.512 ; Localized edema R60.0 ; Sleep apnea G47.30 ; Anxiety about health F41.8 and Bipolar disorder with severe depression F31.4 [facility] [id number] [place] [address] 30209- 3716 Aug, Obese E66.9 ; 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 ; Sleep apnea G47.30 ; Cellulitis L03.90 ; Cellulitis of unspecified part of limb L03.119 ; Intractable tension-type headache, unspecified chronicity pattern G44.201 ; Concussion, without loss of consciousness, subsequent encounter S06.0X0D and Localized edema R60.0 [place] [id number] [place] [address] 62694- 0448 Jun, [place] [id number] [place] [address] 26266- 6971 Jun, 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 ; Other chronic pain G89.29 ; Cellulitis of unspecified part of limb L03.119 and Cutaneous abscess of limb, unspecified L02.419 [place] [id number] [place] [address] 42431- 1281 Jun, [place] [address] 56237- 5974 May, [place] [id number] [place] [address] 80451- 5476 May, [place] [address] 87655- 5058 Apr, Impingement syndrome, shoulder, left M75.42 and SLAP lesion of left shoulder S43.432A [place] [id number] [place] [address] 88060- 7564 Apr, [place] [id number] [place] [address] 49798- 2215 Apr, [place] [id number] [place] [address] 11032- 6700 Apr, [place] [id number] [place] [address] 86770- 3078 Apr, Cellulitis L03.90 ; Obese E66.9 ; Pain in left shoulder M25.512 and Edema, unspecified type R60.9 [place] [id number] [place] [address] 49157- 2042 Mar, Obese E66.9 ; Pain in left shoulder M25.512 and Other chronic pain G89.29 [place] [id number] [place] [address] 67323- 0604 Feb, Anxiety about health F41.8 [place] [address] 32825- 7903 Feb, Obese E66.9 ; 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 ; Shortness of breath R06.02 ; Palpitations R00.2 ; Bipolar disorder with severe depression F31.4 and 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 E40 [place] [address] 08176- 4852 Feb, Bipolar disorder with severe depression F31.[address] 55042- 8486 Feb, Injury of left shoulder and upper arm, initial encounter S49.92XA [address] 47194- 7454 January, [place] [address] 52110- 1912 Dec, Bipolar disorder with severe depression F31.4 [place] [address] 65746- 3674 Dec, Obese E66.9 ; 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 ; Sleep apnea G47.30 ; Anxiety about health F41.8 and Bipolar disorder with severe depression F31.4 [place] [id number] [place] [address] 37282- 0889 Dec, Bipolar disorder with severe depression F31.4 [place] [id number] [place] [address] 33321- 0719 Dec, Bipolar disorder with severe depression F31.4 and 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 [place] [id number] [place] [address] 39821- 0183 Nov, [place] [address] 12048- 5073 Nov, [place] [address] [place] [address] 10963- 0298 Nov, [place] [id number] [place] [address] 70440- 3663 Nov, [place] [id number] [place] [address] 33038- 8920 Nov, Bipolar disorder with severe depression F31.4 [place] [address] 06715- 2709 17 Nov, 2015 Bipolar disorder with severe depression F31.4 [place] [address] 99629- 6207 16 Nov, 2015 Anxiety about health F41.8 ; Obese E66.9 ; 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 ; Bipolar disorder with severe depression F31.4 and Family history of obesity Z83.49 [place] [id number] [place] [address] 54320- 4287 Nov, [place] [id number] [place] [address] 00139- 2475 Nov, Obese E66.9 ; 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 ; Cellulitis L03.90 ; Palpitations R00.2 ; Sleep apnea G47.30 and Shortness of breath R06.02 [place] [id number] [place] [address] 75266- 2007 Sep, UTI (urinary tract infection) N39.0 and Bronchitis J40 [place] [id number] [place] [address] 29462- 2577 Sep, [place] [id number] [place] [address] 36127- 7339 Mar, Left carpal tunnel syndrome 354.0 [place] [id number] [place] [address] 08851- 3797 Feb, Cellulitis 682.9 and Ankle edema 782.3 [facility] [address], [place] [address]- 6112 Feb, [facility] [id number] [place] [address], [place] [address]- 5698 January, Carpal tunnel syndrome on left 354.0 [facility] [address] [place] [address]- 7448 January, Shoulder pain, left 719.41 [facility] [address] [place] [address]- 4648 January, [facility] [address] [place] [address], [place] [address]- 5955 Dec, [facility] [id number] [place] [address]- 7536 Dec, [facility] [address] [place] [address] 68431- 5833 Oct, [facility] [address] [place] [address]- 5722 Oct, [facility] [address] [place] [address]- 4311 Oct, [facility] [address] [place] [address]- 1576 Oct, [facility] [address], [place] [address]- 0427 Sep, [facility] [address], [place] [address]- 1306 Sep, [facility] [address], [place] [address]- 2796 Aug, [facility] [address], [place] [address]- 0966 Aug, [facility] [id number] [address]- 0226 Jun, [facility] [place] [facility] [address] [id number] [place] [address]- 6771 14 Jun, 2014 [facility] [place] [facility] [address] [id number] [place] [address]- 3365 May, [facility] [place] [facility] [address] [id number] [place] [address]- 1289 May, [facility] [place] [facility] [address] [id number] [place] [address]- 6940 May, [facility] [place] [facility] [address] [id number] [place] [address]- 2485 May, [facility] [place] [facility] [address] [id number] [place] [address]- 0420 May, [facility] [place] [facility] [address] [id number] [place] [address]- 4724 May, [facility] [place] [facility] [address] [id number] [place] [address]- 0398 Apr, [facility] [place] [facility] [address] [id number] [place] [address]- 0455 Apr, [facility] [place] [facility] [address] [id number] [place] [address]- 9062 Apr, [facility] [place] [facility] [address] [id number] [place] [address]- 7885 Apr, [facility] [place] [facility] [address] [id number] [place] [address]- 1118 Apr, [facility] [place] [facility] [address] [id number] [place] [address]- 0160 Apr, [facility] [place] [facility] [address] [id number] [place] [address]- 0579 Apr, [facility] [place] [facility] [address] [id number] [place] [address]- 9517 Mar, [facility] [place] [facility] [address] [id number] [place] [address]- 2546 Mar, [facility] [place] [facility] [address] [id number] [place] [address]- 3922 Mar, [facility] [place] [facility] [address] [id number] [place] 3761 Mar, [facility] [place] [facility] [address] [id number] [place] [address]- 7271 Mar, [facility] [place] [facility] [address] [id number] [place] [address]- 4620 Mar, [facility] [place] [facility] [address] [id number] [place] [address]- 0380 Feb, [facility] [place] [facility] [address] [id number] [place] [address]- 7925 Feb, [facility] [place] [facility] [address] [id number] [place] [address]- 3591 Feb, [facility] [place] [facility] [address] [id number] [place] [address]- 8802 Feb, [facility] [place] [facility] [address] [id number] [place] [address]- 1722 January, [facility] [place] [facility] [address] [id number] [place] [address]- 1776 January, [facility] [place] [facility] [address] [id number] [place] [address]- 9610 January, [facility] [place] [facility] [address] [id number] [place] [address]- 4140 January, [facility] [place] [facility] [address] [id number] [place] [address]- 0056 January, [facility] [place] [facility] [address] [id number] [place] [address]- 5962 January, [facility] [place] [facility] [address] [id number] [place] 7305 January, [facility] [place] [facility] [address] [id number] [place] [address]- 9764 January, [facility] [place] [facility] [address] [id number] [place] [address]- 9673 January, [facility] [place] [facility] [address] [id number] [place] [address]- 6162 January, [facility] [place] [facility] [address] [id number] [place] [address]- 6185 January, [facility] [place] [facility] [address] [id number] [place] [address]- 7923 Dec, [facility] [place] [facility] [address] [id number] [place] [address]- 2750 Dec, [facility] [place] [facility] [address] [id number] [place] [address]- 3990 Dec, [facility] [place] [facility] [address] [id number] [place] [address]- 1687 Dec, [facility] [place] [facility] [address] [id number] [place] [address]- 0298 Nov, [facility] [place] [facility] [address] [id number] [place] [address]- 2236 Nov, [facility] [place] [facility] [address] [id number] [place] [address]- 6166 Oct, [facility] [place] [facility] [address] [id number] [place] [address]- 8632 Oct, [facility] [place] [facility] [address] [id number] [place] [address]- 9937 Oct, [facility] [place] [facility] [address] [id number] [place] [address]- 8572 Oct, [facility] [place] [facility] [address] [id number] [place] [address]- 7866 Sep, [facility] [place] [facility] [address] [id number] [place] [address]- 0528 Sep, [facility] [address] [id number] [place] [address]- 6566 Sep, [facility] [place] [facility] [address] [id number] [place] [address]- 5262 Sep, [facility] [address] [id number] [place] [address]- 9222 Sep, [facility] [place] [facility] [address] [id number] [place] [address]- 2935 Sep, [facility] [address] [id number] [place] [address]- 7862 Aug, [facility] [place] [facility] [address] [id number] [place] [address]- 8125 Aug, [facility] [place] [facility] [address] [id number] [place] [address]- 5886 Aug, [facility] [place] [facility] [address] [id number] [place] [address]- 6697 Aug, [facility] [place] [facility] [address] [id number] [place] [address]- 3789 Aug, [facility] [place] [facility] [address] [id number] [place] [address]- 0291 Aug, [facility] [place] [facility] [address] [id number], [place] [address]- 9506 Aug, [facility] [place] [facility] [address] [id number], [place] [address]- 5338 Aug, [facility] [place] [facility] [address] [id number] [place] [address]- 7303 Aug, [facility] [place] [facility] [address] [id number] [place] [address]- 7923 Aug, [facility] [place] [facility] [address] [id number] [place] [address]- 3491 15 Jul, 2013 [facility] [place] [facility] [address] [id number] [place] [address]- 3242 Jul, [facility] [place] [facility] [address] [id number] [place] [address]- 2410 Jul, [facility] [place] [facility] [address] [id number] [place] [address]- 3758 Jul, [facility] [place] [facility] [address] [id number] [place] [address]- 2933 Jun, [facility] [place] [facility] [address] [id number] [place] [address]- 1053 Jun, [facility] [place] [facility] [address] [id number] [place] [address]- 0119 Jun, [facility] [place] [facility] [address] [id number] [place] [address]- 8361 Jun, [facility] [place] [facility] [address] [id number] [place] [address]- 5335 Jun, [facility] [place] [facility] [address] [id number] [place] [address]- 0831 May, [facility] [place] [facility] [address] [id number] [place] [address]- 2714 May, [facility] [place] [facility] [address] [id number] [place] [address]- 9425 Apr, [facility] [place] [facility] [address] [id number] [place] [address]- 4841 Mar, [facility] [place] [facility] [address] [id number] [place] [address] Mar, [facility] [place] [facility] [address] [id number] [place] [address] 2021 Mar, [facility] [place] [facility] [address] [id number] [place] [address] Mar, [facility] [place] [facility] [address] [id number] [place] [address] Mar, [facility] [place] [facility] [address] [id number] [place] [address] 03 Mar, 2013 [facility] [address] [id number] [place] [address] 18 Feb, 2013 [facility] [place] [facility] [address] [id number] [place] [address] 18 Feb, 2013 [facility] [place] [facility] [address] [id number] [place] [address] 16 Feb, 2013 [facility] [address] [id number] [place] [address] 15 Feb, 2013 [facility] [address] [id number] [place] [address] 14 Feb, 2013 [facility] [address] [id number] [place] [address] Feb, [facility] [address] [id number] [place] [address] Feb, [facility] [address] [id number] [place] [address] January, [facility] [address] [id number] [place] [address] January, [facility] [place] [facility] [address] [id number] [place] [address] Nov, [facility] [place] [facility] [address] [id number] [place] [address] Nov, [facility] [place] [facility] [address] [id number] [place] [address] Nov, [facility] [place] [facility] [address] [id number] [place] [address] Nov, [facility] [place] [facility] [address] [id number] [place] [address] Oct, [facility] [place] [facility] [address] [id number], [place] [address] Oct, [facility] [place] [facility] [address] [id number] [place] [address] Oct, [facility] [place] [facility] [address] [id number] [place] [address] Sep, [facility] [place] [facility] [address] [id number] [place] [address] Sep, [facility] [place] [facility] [address] [id number] [place] [address] Sep, [facility] [place] [facility] [address] [id number] [place] [address] Sep, [facility] [place] [facility] [address] [id number] [place] [address] Aug, [facility] [place] [facility] [address] [facility] [id number] [place] [address] Aug, [facility] [place] [facility] [address] [id number] [place] [address] Jul, [facility] [place] [facility] [address] [facility] [facility] [id number] [place] [address] Jul, [facility] [place] [facility] [address] [facility] [id number] [place] [address] Jun, [facility] [place] [facility] [address] [facility] [id number], [place] [address] Jun, [facility] [place] [facility] [address] [id number], [place] [address] Jun, [facility] [place] [facility] [address] [id number] [place] [address] Jun, [facility] [place] [facility] [address] [facility] [id number] [place] [address] Jun, [facility] [place] [facility] [address] [facility] [id number], [place] [address] Jun, [facility] [place] [facility] [address] [id number] [place] [address] Jun, [facility] [place] [facility] [address] [id number] [place] [address] Jun, [facility] [place] [facility] [address] [id number] [place] [address] Jun, [facility] [place] [facility] [address] [id number] [place] [address] Jun, [facility] [place] [facility] [address] [id number] [place] [address] Jun, [facility] [place] [facility] [address] [id number] [place] [address] Jun, [facility] [place] [facility] [address] [id number] [place] [address] Jun, [facility] [place] [facility] [address] [id number] [place] [address] Jun, [facility] [place] [facility] [address] [id number] [place] [address] Jun, [facility] [place] [facility] [address] [id number] [place] [address] Jun, [facility] [place] [facility] [address] [id number] [place] [address] 29 May, 2012 [facility] [place] [facility] [address] [id number] [place] [address] 26 May, 2012 [facility] [place] [facility] [address] [id number] [place] [address] 25 May, 2012 [facility] [place] [facility] [address] [id number] [place] [address] 24 May, 2012 [facility] [place] [facility] [address] [id number] [place] [address] 22 May, 2012 [facility] [place] [facility] [address] [id number] [place] [address] Mar, [facility] [place] [facility] [address] [id number] [place] [address] Mar, [facility] [place] [facility] [address] [id number] [place] [address] Mar, [facility] [place] [facility] [address] [id number] [place] [address] Mar, [facility] [place] [facility] [address] [id number] [place] [address] Mar, [facility] [place] [facility] [address] [id number] [place] [address] Mar, [facility] [place] [facility] [address] [id number] [place] [address] Feb, [facility] [place] [facility] [address] [id number] [place] [address] Feb, [facility] [place] [facility] [address] [id number] [place] [address] Feb, [facility] [place] [facility] [address] [id number] [place] [address] Feb, [facility] [place] [facility] [address] [id number] [place] [address] Feb, [facility] [place] [facility] [address] [id number] [place] [address] January, [facility] [place] [facility] [address] [id number] [place] [address] Dec, [facility] [place] [facility] [address] [id number] [place] [address] Dec, [facility] [place] [facility] [address] [id number] [place] [address] Dec, [facility] [place] [facility] [address] [id number] [place] [address] Dec, [facility] [place] [facility] [address] [id number] [address] [address] Dec, [facility] [id number] [address] Nov, [facility] [id number] [address] Oct, [facility] [id number] [address] Sep, [facility] [id number] [address] Aug, [facility] [id number] [place] [address] Jul, [facility] [id number] [address] Jul, [facility] [address] [id number] [address] Jul, [facility] [id number] [place] [address] Apr, [facility] [id number] [address] Apr, [facility] [id number], [place] [address] Apr, [facility] [id number] [address] January, IMMUNIZATIONS No Known Immunizations SOCIAL HISTORY Never Assessed REASON FOR VISIT leg rash on both legs WB-MA, Rash is spreading and has been present the past 4 days, PT had a gastric sleeve placed on 02/11/18 PLAN OF CARE Activity Details Follow Up prn Reason: VITAL SIGNS Height 65 in 2018-03-06 Weight 315 lbs 2018-03-06 Temperature 99.2 degrees Fahrenheit 2018-03-06 Heart Rate 86 bpm 2018-03-06 Respiratory Rate 18 2018-03-06 BMI 52.41 kg/m2 2018-03-06 Blood pressure systolic 120 mmHg 2018-03-06 Blood pressure diastolic 72 mmHg 2018-03-06 MEDICATIONS Medication Instructions Dosage Frequency Start Date End Date Duration Status Topamax 50 MG Orally Twice a day 1 tablet 12h Oct, 30 days Not -Taking Topamax Sprinkle 25 MG Orally. may swallow whole or open and sprinle on food and swallow immediately. 2 times a day 2 capsules 12h January, 30 day (s) Active Silvadene 1 % Externally TID PRN 1 application to affected area January, Active Sulfamethoxazole-Trimethoprim 200-40 MG/5ML Orally twice a day 20 ml 12h Feb, Feb, 07 days Active RESULTS No Results PROCEDURES Procedure Date Ordered Result Body Site [facility] VISIT ESTABLISHED PATIENT March 06, 2018 INSTRUCTIONS MEDICATIONS ADMINISTERED No Known Medications [...] Hospitalization History Celluliti BLE-H 02/08/17 Hospitalization History Cellulitis-[facility] 04/22/17 Hospitalization History cellulitis-[facility] December 2017
--- OUTSIDE RECORDS SUMMARY | 2018-10-07 15:58 | XMS REPORT ---
Author Author CAROLYNE STARR Organization [facility] Address [address] [place] [address] Care Team Providers Care Cloth Grader Supervisor Name Role Phone CAROLYNE STARR Unavailable PROBLEMS Type Condition ICD9-CM Code SLO00-ZZ Code Onset Dates Condition Status SNOMED Code Problem Mild intermittent asthma without complication J45.20 Active 979209540 Problem Venous insufficiency I87.2 Active 63710548 Problem Morbid obesity E66.01 Active 691277287 Problem BMI 50.0-59.9, adult Z68.43 Active 721128807 Problem Bipolar affective disorder, currently depressed, mild F31.31 Active 841557407 Problem Methamphetamine use disorder, severe, 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 Active 61502202 Problem Cervical disc disease M50.90 Active 424499391 Problem Alcohol use disorder, mild, abuse F10.10 Active 50716924 Problem Cocaine use disorder, severe, 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 Active 25095309 Problem Bipolar disorder with severe depression F31.4 Active 668517132 Problem Pain in left shoulder M25.512 Active 17469448 Problem 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 640975796 Problem Sleep apnea G47.30 Active 36963068 Problem Cervical radiculopathy M54.12 Active 69442040 ALLERGIES No Information ENCOUNTERS Encounter Location Date Diagnosis [facility] [id number] [address] Apr, [facility] [address], [place] [address] Apr, Cellulitis of left lower extremity L03.116 [facility] [id number] [address] Apr, Cellulitis of left lower extremity L03.116 [facility] [id number] [address] Mar, [place] [address], [place] [address] Mar, [facility] [id number] [place] [address] 71411- 1494 Mar, Cellulitis of left lower limb L03.116 ; BMI 50.0-59.9, adult Z68.43 and Acute nasopharyngitis J00 [place] [id number] [place] [address] 24171- 5441 Feb, 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 ; Venous insufficiency I87.2 and BMI 50.0-59.9, adult Z68.43 [place] [id number] [place] [address] 52236- 2140 Feb, Cellulitis of left lower extremity L03.116 and BMI 50.0-59.9 , adult Z68.43 [place] [id number] [place] [address] 16945- 4875 Feb, [place] [id number] [place] [address] 15974- 3619 January, [place] [id number] [place] [address] 51211- 0450 January, Medicare annual wellness visit, initial Z00.00 ; Morbid obesity E66.01 ; Mild intermittent asthma without complication J45.20 ; Bipolar disorder with severe depression F31.4 ; 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 ; Venous insufficiency I87.2 and Encounter for immunization Z23 [place] [address], [place] [address] January, [place] [id number] [place] [address] 04861- 3786 January, Cellulitis of left lower extremity L03.116 and BMI 50.0-59.9 , adult Z68.43 [place] [address], [place] [address]- 4740 10 Apr, 2018 Non-pressure chronic ulcer of left calf, 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 ; History of cellulitis Z87.2 and BMI 50.0-59.9, adult Z68.43 [facility] [place] [id number] [place] [address] 84297 -5481 03 Dec, 2017 Cloudy urine R82.90 ; Cellulitis of lower extremity, unspecified laterality L03.119 and BMI 50.0-59.9, adult Z68.43 [place] [address] 54651- 9447 Nov, Sleep apnea G47.[address] 17678- 6100 08 Nov, 2017 Bipolar affective disorder, currently depressed, mild F31.31 ; Methamphetamine use disorder, severe, 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 ; Cocaine use disorder, severe, 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 ; Alcohol use disorder, mild, abuse F10.10 and BMI 50.0-59.9, adult Z68.43 [place] [id number] [place] [address] 01447- 8091 15 Oct, 2017 BMI 50.0-59.9, adult Z68.43 ; Bipolar affective disorder, currently depressed, mild F31.31 ; Methamphetamine use disorder, severe, 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 ; Cocaine use disorder, severe, 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 and Alcohol use disorder, mild, abuse F10.10 [place] [id number] [place] [address] 21078- 6044 14 Oct, 2017 [place] [id number] [place] [address] 64061- 2599 Oct, BMI 50.0-59.9, adult Z68.43 ; 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 and Morbid obesity E66.01 [facility] [place] [id number] [place] [address] 40817 -8442 Sep, Acute suppurative otitis media of right ear without spontaneous rupture of tympanic membrane, recurrence not specified H66.001 and BMI 60.0-69.9, adult Z68.44 [place] [id number] [place] [address] 11460- 4146 Sep, [place] [id number] [place] [address] 71862- 2173 Aug, Cervical disc disease M50.90 [place] [id number] [place] [address] 99175- 2403 Aug, [place] [id number] [place] [address] 60816- 6750 Aug, Mild intermittent asthma without complication J45.20 ; Cervical radiculopathy M54.12 ; Venous insufficiency I87.2 ; Morbid obesity E66.01 and BMI 50.0-59.9, adult Z68.43 [place] [id number] [place] [address] 96161- 2457 Jun, [place] [address] 49527- 7922 May, [place] [id number] [place] [address] 36354- 2433 Apr, [place] [id number] [place] [address] 59889- 7311 Apr, 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 [place] [id number] [place] [address] [id number] Apr, [place] [id number] [place] [address] 62552- 4190 Apr, 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 [place] [id number] [place] [address] 82475- 8947 Apr, Cellulitis of left lower extremity L03.116 ; Localized edema R60.0 ; 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 and Bipolar disorder with severe depression F31.4 [place] [address] [place] [address] 38664- 9239 Apr, Cellulitis of unspecified part of limb L03.119 and 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 [facility] [address] [place] [address] 75027- 6601 Mar, [facility] [address] [place] [address] 80467 -2286 Mar, Cellulitis of left lower limb L03.116 [facility] [id number] [place] [address] 29316- 6084 Mar, 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 and Cellulitis L03.90 [facility] [id number] [place] [address] 90128- 4746 Mar, Bronchitis J40 and Cellulitis L03.90 [place] [id number] [place] [address] 80222- 9394 January, [facility] [id number] [place] [address] 62929- 8439 January, [facility] [id number] [place] [address] 08009- 2903 Nov, 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 ; Cellulitis L03.90 ; Obese E66.9 ; Pain in left shoulder M25.512 ; Localized edema R60.0 ; Sleep apnea G47.30 ; Anxiety about health F41.8 and Bipolar disorder with severe depression F31.4 [facility] [id number] [place] [address] 87838- 4602 Aug, Obese E66.9 ; 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 ; Sleep apnea G47.30 ; Cellulitis L03.90 ; Cellulitis of unspecified part of limb L03.119 ; Intractable tension-type headache, unspecified chronicity pattern G44.201 ; Concussion, without loss of consciousness, subsequent encounter S06.0X0D and Localized edema R60.0 [facility] [id number] [place] [address] 28761- 6202 Jun, [facility] [id number] [place] [address] 94914- 6677 Jun, 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 ; Other chronic pain G89.29 ; Cellulitis of unspecified part of limb L03.119 and Cutaneous abscess of limb, unspecified L02.419 [place] [id number] [place] [address] 77763- 8179 Jun, [place] [address] 86028- 5817 May, [place] [id number] [place] [address] 82939- 3242 May, [place] [address] 56721- 6174 Apr, Impingement syndrome, shoulder, left M75.42 and SLAP lesion of left shoulder S43.432A [place] [address] 80049- 8562 Apr, [place] [id number] [place] [address] 53119- 5823 Apr, [place] [address] 46941- 0195 Apr, [place] [id number] [place] [address] 23298- 9668 Apr, Cellulitis L03.90 ; Obese E66.9 ; Pain in left shoulder M25.512 and Edema, unspecified type R60.9 [place] [id number] [place] [address] 50897- 2622 Mar, Obese E66.9 ; Pain in left shoulder M25.512 and Other chronic pain G89.29 [place] [id number] [place] [address] 30130- 0185 Feb, Anxiety about health F41.8 [place] [id number] [place] [address] 80468- 6012 Feb, Obese E66.9 ; 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 ; Shortness of breath R06.02 ; Palpitations R00.2 ; Bipolar disorder with severe depression F31.4 and 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 E40 [place] [id number] [place] [address] 02618- 5313 Feb, Bipolar disorder with severe depression F31.4 [place] [address] 57937- 5437 Feb, Injury of left shoulder and upper arm, initial encounter S49.92XA [place] [address] 56271- 2093 January, [place] [address] 28115- 1514 Dec, Bipolar disorder with severe depression F31.4 [place] [address] 83994- 4659 Dec, Obese E66.9 ; 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 ; Sleep apnea G47.30 ; Anxiety about health F41.8 and Bipolar disorder with severe depression F31.4 [place] [address] 10453- 3873 Dec, Bipolar disorder with severe depression F31.4 [place] [id number] [place] [address] 35504- 8874 Dec, Bipolar disorder with severe depression F31.4 and Other terminal gauger (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 Z79.899 [place] [id number] [place] [address] 75643- 4060 Nov, [place] [address] 09932- 4616 Nov, [place] [address] 63926- 6496 Nov, [place] [address] 83456- 5213 Nov, [place] [id number] [place] [address] 11171- 6760 Nov, Bipolar disorder with severe depression F31.4 [place] [id number] [place] [address] 01391- 3207 17 Nov, 2015 Bipolar disorder with severe depression F31.4 [place] [address] 37337- 9696 16 Nov, 2015 Anxiety about health F41.8 ; Obese E66.9 ; 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 ; Bipolar disorder with severe depression F31.4 and Family history of obesity Z83.49 [place] [id number] [place] [address] 30918- 5322 14 Nov, [address] 53115- 2345 Nov, Obese E66.9 ; 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 ; Cellulitis L03.90 ; Palpitations R00.2 ; Sleep apnea G47.30 and Shortness of breath R06.[address] 54402- 8977 Sep, UTI (urinary tract infection) N39.0 and Bronchitis J40 [place] [id number] [place] [address] 69999- 2347 Sep, [address] 30177- 0518 Mar, Left carpal tunnel syndrome 354.[address] 95333- 8282 Feb, Cellulitis 682.9 and Ankle edema 782.3 [place] [id number] [place] [address] 51548- 6946 Feb, [address] 00088- 1485 January, Carpal tunnel syndrome on left 354.0 [facility] [address] [place] [address]- 3868 January, Shoulder pain, left 719.41 [facility] [address] [facility] [id number] [place] [address]- 1736 January, [facility] [id number] [place] [address], [place] [address]- 2693 Dec, [facility] [address] [facility] [id number] [place] [address]- 0588 Dec, [facility] [id number] [place] [address], [place] [address]- 6673 Oct, [facility] [id number] [place] [address]- 5356 Oct, [facility] [id number] [place] [address], [place] [address]- 1186 Oct, [facility] [address] [place] [address]- 7427 Oct, [facility] [address] [place] [address]- 9736 Sep, [facility] [address] [address]- 5886 Sep, [facility] [address], [place] [address]- 0366 Aug, [facility] [id number] [address]- 5556 Aug, [facility] [address] [address]- 0786 Jun, [facility] [address] [address]- 4776 Jun, [facility] [address] [address]- 8970 May, [facility] [place] [facility] [address] [id number] [place] [address]- 0801 May, [facility] [place] [facility] [address] [id number] [place] [address]- 5654 May, [facility] [place] [facility] [address] [id number] [place] [address]- 8456 May, [facility] [place] [facility] [address] [id number] [place] [address]- 2562 May, [facility] [place] [facility] [address] [id number] [place] [address]- 5350 May, [facility] [place] [facility] [address] [id number] [place] [address]- 4883 Apr, [facility] [place] [facility] [address] [id number] [place] [address]- 8493 Apr, [facility] [place] [facility] [address] [id number] [place] [address]- 3709 Apr, [facility] [place] [facility] [address] [id number] [place] [address]- 8238 Apr, [facility] [place] [facility] [address] [id number] [place] [address]- 4916 Apr, [facility] [place] [facility] [address] [id number] [place] [address]- 6293 Apr, [facility] [place] [facility] [address] [id number] [place] [address]- 7228 Apr, [facility] [place] [facility] [address] [id number] [place] [address]- 1382 Mar, [facility] [place] [facility] [address] [id number] [place] [address]- 9200 Mar, [facility] [place] [facility] [address] [id number] [place] [address]- 2204 Mar, [facility] [place] [facility] [address] [id number] [place] [address]- 2511 Mar, [facility] [place] [facility] [address] [id number] [place] [address]- 3374 Mar, [facility] [place] [facility] [address] [id number] [place] [address]- 2392 Mar, [facility] [place] [facility] [address] [id number] [place] [address]- 9421 Feb, [facility] [place] [facility] [address] [id number] [place] [address]- 4028 Feb, [facility] [place] [facility] [address] [id number] [place] [address]- 8436 Feb, [facility] [place] [facility] [address] [id number] [place] [address]- 1879 Feb, [facility] [place] [facility] [address] [id number] [place] [address]- 2350 January, [facility] [place] [facility] [address] [id number] [place] [address]- 9401 January, [facility] [place] [facility] [address] [id number] [place] [address]- 4705 January, [facility] [place] [facility] [address] [id number] [place] [address]- 7135 January, [facility] [place] [facility] [address] [id number] [place] [address]- 5971 January, [facility] [place] [facility] [address] [id number] [place] [address]- 4023 January, [facility] [place] [facility] [address] [id number] [place] [address]- 2241 January, [facility] [place] [facility] [address] [id number] [place] [address]- 2695 January, [facility] [place] [facility] [address] [id number] [place] [address]- 5242 January, [facility] [place] [facility] [address] [id number] [place] [address]- 7388 January, [facility] [place] [facility] [address] [id number] [place] [address]- 2786 January, [facility] [place] [facility] [address] [id number] [place] [address]- 1591 Dec, [facility] [place] [facility] [address] [id number] [place] [address]- 3625 Dec, [facility] [place] [facility] [address] [id number] [place] [address]- 1427 Dec, [facility] [place] [facility] [address] [id number] [place] [address]- 5325 Dec, [facility] [place] [facility] [address] [id number] [place] [address]- 0519 Nov, [facility] [place] [facility] [address] [id number] [place] [address]- 7314 Nov, [facility] [place] [facility] [address] [id number] [place] [address]- 8464 Oct, [facility] [place] [facility] [address] [id number] [place] [address]- 1434 Oct, [facility] [place] [facility] [address] [id number] [place] [address]- 2028 Oct, [facility] [place] [facility] [address] [id number] [place] [address]- 4769 Oct, [facility] [place] [facility] [address] [id number] [place] [address]- 0020 Sep, [facility] [place] [facility] [address] [id number] [place] [address]- 9405 Sep, [facility] [place] [facility] [address] [id number] [place] [address]- 6089 Sep, [facility] [place] [facility] [address] [id number] [place] [address]- 3004 Sep, [facility] [address] [id number] [place] [address]- 5229 Sep, [facility] [place] [facility] [address] [id number] [place] [address]- 9155 Sep, [facility] [place] [facility] [address] [id number] [place] [address]- 3307 Aug, [facility] [place] [facility] [address] [id number] [place] [address]- 8504 Aug, [facility] [place] [facility] [address] [id number] [place] [address]- 4965 Aug, [facility] [place] [facility] [address] [id number] [place] [address]- 3294 Aug, [facility] [address] [id number] [place] [address]- 2892 Aug, [facility] [place] [facility] [address] [id number] [place] [address]- 6310 Aug, [facility] [place] [facility] [address] [id number] [place] [address]- 0096 Aug, [facility] [place] [facility] [address] [id number] [place] [address]- 0879 Aug, [facility] [place] [facility] [address] [id number] [place] [address]- 2337 Aug, [facility] [place] [facility] [address] [id number] [place] [address]- 3274 Aug, [facility] [place] [facility] [address] [id number] [place] [address]- 1596 Jul, [facility] [place] [facility] [address] [id number] [place] [address]- 4877 Jul, [facility] [place] [facility] [address] [id number] [place] [address]- 0608 Jul, [facility] [place] [facility] [address] [id number] [place] [address]- 2546 Jul, [facility] [address] [id number] [place] [address]- 1617 Jun, [facility] [place] [facility] [address] [id number] [place] [address]- 2546 Jun, [facility] [place] [facility] [address] [id number] [place] [address] 2549 Jun, [facility] [place] [facility] [address] [id number] [place] [address] 2548 Jun, [facility] [place] [facility] [address] [id number] [place] [address]- 4704 Jun, [facility] [place] [facility] [address] [id number] [place] [address]- 2028 May, [facility] [place] [facility] [address] [id number] [place] [address]- 7977 May, [facility] [place] [facility] [address] [id number] [place] [address]- 8307 Apr, [facility] [place] [facility] [address] [id number] [place] [address]- 5540 Mar, [facility] [place] [facility] [address] [id number] [place] [address]- 8648 Mar, [facility] [place] [facility] [address] [id number] [place] [address]- 2547 Mar, [facility] [place] [facility] [address] [id number] [place] [address]- 2549 Mar, [facility] [place] [facility] [address] [id number] [place] [address]- 2546 Mar, [facility] [place] [facility] [address] [id number] [place] [address]- 2546 Mar, [facility] [place] [facility] [address] [id number] [place] [address]- 0624 Feb, [facility] [place] [facility] [address] [id number] [place] [address]- 9562 18 Feb, 2013 [facility] [place] [facility] [address] [id number] [place] [address]- 9[address] 16 Feb, 2013 [facility] [place] [facility] [address] [id number] [place] [address] 15 Feb, 2013 [facility] [place] [facility] [address] [id number] [place] [address] 14 Feb, 2013 [facility] [place] [facility] [address] [id number] [place] [address] 13 Feb, 2013 [facility] [place] [facility] [address] [id number] [place] [address] 11 Feb, 2013 [facility] [place] [facility] [address] [id number] [place] [address] January, [facility] [place] [facility] [address] [id number] [place] [address] January, [facility] [place] [facility] [address] [id number] [place] [address] Nov, [facility] [place] [facility] [address] [id number] [address] Nov, [facility] [place] [facility] [address] [id number] [place] [address] Nov, [facility] [place] [facility] [address] [id number], [place] [address] Nov, [facility] [place] [facility] [address] [id number] [place] [address] Oct, [facility] [place] [facility] [address] [id number], [place] [address] Oct, [facility] [place] [facility] [address] [id number] [place] [address] Oct, [facility] [place] [facility] [address] [id number] [place] [address] Sep, [facility] [place] [facility] [address] [id number] [place] [address] Sep, [facility] [place] [facility] [address] [id number] [place] [address] Sep, [facility] [place] [facility] [address] [id number] [place] [address] Sep, [facility] [place] [facility] [address] [id number] [place] [address] Aug, [facility] [place] [facility] [address] [id number] [place] [address] Aug, [facility] [place] [facility] [address] [id number] [place] [address] Jul, [facility] [place] [facility] [address] [id number] [place] [address] Jul, [facility] [place] [facility] [address] [id number] [place] [address] Jun, [facility] [place] [facility] [address] [id number] [place] [address] Jun, [facility] [place] [facility] [address] [id number] [place] [address] Jun, [facility] [place] [facility] [address] [id number] [place] [address] Jun, [facility] [place] [facility] [address] [id number] [place] [address] Jun, [facility] [place] [facility] [address] [id number] [place] [address]- [address] Jun, [facility] [place] [facility] [address] [id number] [place] [address] Jun, [facility] [place] [facility] [address] [id number] [place] [address] Jun, [facility] [place] [facility] [address] [id number] [place] [address] Jun, [facility] [place] [facility] [address] [id number] [place] [address] Jun, [facility] [place] [facility] [address] [id number] [place] [address] 2006 Jun, [facility] [place] [facility] [address] [id number] [place] [address] Jun, [facility] [place] [facility] [address] [id number] [place] [address] Jun, [facility] [place] [facility] [address] [id number] [place] [address] Jun, [facility] [place] [facility] [address] [id number] [place] [address] Jun, [facility] [place] [facility] [address] [id number] [place] [address] Jun, [facility] [place] [facility] [address] [id number] [place] [address] 29 May, 2012 [facility] [facility] [address] [id number] [place] [address] May, [facility] [place] [facility] [address] [id number] [place] [address] May, [facility] [place] [facility] [address] [id number] [place] [address] 24 May, 2012 [facility] [place] [facility] [address] [id number] [place] [address] May, [facility] [place] [facility] [address] [id number] [place] [address] Mar, [facility] [place] [facility] [address] [id number] [place] [address] Mar, [facility] [place] [facility] [address] [id number] [place] [address] Mar, [facility] [place] [facility] [address] [id number] [place] [address] Mar, [facility] [place] [facility] [address] [id number] [place] [address] Mar, [facility] [place] [facility] [address] [id number] [place] [address] Mar, [facility] [place] [facility] [address] [id number] [place] [address] Feb, [facility] [place] [facility] [address] [id number] [place] [address] Feb, [facility] [place] [facility] [address] [id number] [place] [address] Feb, [facility] [place] [facility] [address] [id number] [place] [address] Feb, [facility] [place] [facility] [address] [id number] [place] [address] Feb, [facility] [place] [facility] [address] [id number] [place] [address] January, [facility] [place] [facility] [address] [id number] [place] [address] Dec, [facility] [place] [facility] [address] [id number] [place] [address] Dec, [facility] [place] [facility] [address] [id number] [place] [address] Dec, [facility] [place] [facility] [address] [id number] [place] [address] Dec, [facility] [place] [facility] [address] [id number] [place] [address] Dec, [facility] [place] [facility] [address] [id number] [place] [address] Nov, [facility] [place] [facility] [address] [id number] [address] Oct, [facility] [address] [id number] [address] Sep, [facility] [id number] [address] Aug, [facility] [id number] [address] Jul, [facility] [id number] [address] Jul, [facility] [id number] [address] Jul, [facility] [id number] [address] Apr, [facility] [id number] [address] Apr, [facility] [address] [id number] [address] Apr, [facility] [address] [id number] [address] January, IMMUNIZATIONS No Known Immunizations SOCIAL HISTORY Never Assessed REASON FOR VISIT eye exam PLAN OF CARE VITAL SIGNS MEDICATIONS Unknown Medications RESULTS No Results PROCEDURES No Known procedures [...] bronchitis 09-15-2015 Hospitalization History bronchitis ER visit 09-22/09-24-15 Hospitalization History Celluliti BLE-[facility] 02/08/17 Hospitalization History Cellulitis-[facility] 04/22/17 Hospitalization History cellulitis-[facility] December 2017
--- OUTSIDE RECORDS SUMMARY | 2018-10-07 15:58 | XMS REPORT ---
Author Author CHLOE LALITA [facility] Address [address] [place] [address] Care Team Providers Care Material Crew Supervisor Name Role Phone EMMANUELKAVON JACKSONA Unavailable PROBLEMS Type Condition ICD9-CM Code VTK79-ST Code Onset Dates Condition Status SNOMED Code Problem Mild intermittent asthma without complication J45.20 Active 291402992 Problem Venous insufficiency I87.2 Active 59188816 Problem Morbid obesity E66.01 Active 963325183 Problem BMI 50.0-59.9, adult Z68.43 Active 463773386 Problem Bipolar affective disorder, currently depressed, mild F31.31 Active 763442817 Problem Methamphetamine use disorder, severe, 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 Active 27057121 Problem Cervical disc disease M50.90 Active 703079137 Problem Alcohol use disorder, mild, abuse F10.10 Active 25540197 Problem Cocaine use disorder, severe, 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 Active 94461941 Problem Bipolar disorder with severe depression F31.4 Active 383624505 Problem Pain in left shoulder M25.512 Active 55592706 Problem 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 306549379 Problem Sleep apnea G47.30 Active 95315078 Problem Cervical radiculopathy M54.12 Active 15310535 ALLERGIES No Information ENCOUNTERS Encounter Location Date Diagnosis [facility] [id number] [address] Mar, [facility] [address] [address] Mar, [facility] [id number] [address] Mar, Cellulitis of left lower limb L03.116 ; BMI 50.0-59.9, adult Z68.43 and Acute nasopharyngitis J00 [facility] [id number] [place] [address] 02604- 5104 Feb, 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 ; Venous insufficiency I87.2 and BMI 50.0-59.9, adult Z68.43 [address] [id number] [place] [address] 52505- 5339 Feb, Cellulitis of left lower extremity L03.116 and BMI 50.0-59.9 , adult Z68.43 [place] [id number] [place] [address] 65029- 0308 Feb, [place] [address] [address]98- 7192 January, [address] [address]- [address] January, Medicare annual wellness visit, initial Z00.00 ; Morbid obesity E66.01 ; Mild intermittent asthma without complication J45.20 ; Bipolar disorder with severe depression F31.4 ; 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 ; Venous insufficiency I87.2 and Encounter for immunization Z23 [id number] [place] [address] 89494- 0684 January, [address] 83283- 0868 January, Cellulitis of left lower extremity L03.116 and BMI 50.0-59.9 , adult Z68.43 [place] [id number] [place] [address] 11784- 8274 Dec, Non-pressure chronic ulcer of left calf, 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 ; History of cellulitis Z87.2 and BMI 50.0-59.9, adult Z68.43 [facility] [id number] [place] [address] 67889 -3646 Dec, Cloudy urine R82.90 ; Cellulitis of lower extremity, unspecified laterality L03.119 and BMI 50.0-59.9, adult Z68.43 [address] [address] 22984- 2227 13 Nov, 2017 Sleep apnea G47.30 [place] [address] 42087- 9263 08 Nov, 2017 Bipolar affective disorder, currently depressed, mild F31.31 ; Methamphetamine use disorder, severe, 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 ; Cocaine use disorder, severe, 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 ; Alcohol use disorder, mild, abuse F10.10 and BMI 50.0-59.9, adult Z68.43 [place] [address] 29414- 0119 15 Oct, 2017 BMI 50.0-59.9, adult Z68.43 ; Bipolar affective disorder, currently depressed, mild F31.31 ; Methamphetamine use disorder, severe, 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 ; Cocaine use disorder, severe, 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 and Alcohol use disorder, mild, abuse F10.10 [place] [address] 83415- 7232 14 Oct, 2017 [place] [address] 52992- 6511 01 Oct, 2017 BMI 50.0-59.9, adult Z68.43 ; 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 and Morbid obesity E66.01 [facility] [id number] [place] [address] 59073 -5821 Sep, Acute suppurative otitis media of right ear without spontaneous rupture of tympanic membrane, recurrence not specified H66.001 and BMI 60.0-69.9, adult Z68.44 [place] [address] 07644- 7068 Sep, [place] [address] 04086- 7691 Aug, Cervical disc disease M50.[address] 70566- 6794 Aug, [facility] [id number] [place] [address] 09731- 6232 Aug, Mild intermittent asthma without complication J45.20 ; Cervical radiculopathy M54.12 ; Venous insufficiency I87.2 ; Morbid obesity E66.01 and BMI 50.0-59.9, adult Z68.43 [address] [id number] [place] [address] 63401- 9911 Jun, [facility] [id number] [place] [address] 05276- 2816 May, [place] [id number] [place] [address] 67452- 1264 Apr, [place] [id number] [place] [address] 17342- 0313 Apr, 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 [facility] [address] [id number] Apr, [place] [id number] [place] [address] 26394- 2940 Apr, 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 [place] [id number] [place] [address] 92018- 3568 Apr, Cellulitis of left lower extremity L03.116 ; Localized edema R60.0 ; 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 and Bipolar disorder with severe depression F31.4 [facility] [id number] [place] [address] 11182- 4418 Apr, Cellulitis of unspecified part of limb L03.119 and 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 [place] [id number] [place] [address] 15904- 3560 Mar, [facility] [id number] [place] [address] 18178 -4034 Mar, Cellulitis of left lower limb L03.116 [facility] [id number] [place] [address] 50758- 3894 Mar, 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 and Cellulitis L03.90 [id number] [place] [address] 63586- 9155 Mar, Bronchitis J40 and Cellulitis L03.90 [place] [id number] [place] [address] 59393- 9112 January, [place] [address] 79615- 6237 January, [place] [id number] [place] [address] 92312- 4314 Nov, 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 ; Cellulitis L03.90 ; Obese E66.9 ; Pain in left shoulder M25.512 ; Localized edema R60.0 ; Sleep apnea G47.30 ; Anxiety about health F41.8 and Bipolar disorder with severe depression F31.4 [id number] [place] [address] 46300- 8790 Aug, Obese E66.9 ; 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 ; Sleep apnea G47.30 ; Cellulitis L03.90 ; Cellulitis of unspecified part of limb L03.119 ; Intractable tension-type headache, unspecified chronicity pattern G44.201 ; Concussion, without loss of consciousness, subsequent encounter S06.0X0D and Localized edema R60.0 [place] [id number] [place] [address] 79234- 6189 Jun, [id number] [place] [address] 30030- 5742 Jun, 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 ; Other chronic pain G89.29 ; Cellulitis of unspecified part of limb L03.119 and Cutaneous abscess of limb, unspecified L02.419 [id number] [place] [address] 64172- 3449 Jun, [place] [id number] [place] [address] 63761- 8946 May, [place] [address] [place] [address] 62186- 9846 May, [place] [id number] [place] [address] 39345- 6567 Apr, Impingement syndrome, shoulder, left M75.42 and SLAP lesion of left shoulder S43.432A [place] [id number] [place] [address] 25526- 5783 Apr, [place] [id number] [place] [address] 96670- 8282 Apr, [place] [id number] [place] [address] 41643- 8803 Apr, [place] [id number] [place] [address] 85202- 1329 Apr, Cellulitis L03.90 ; Obese E66.9 ; Pain in left shoulder M25.512 and Edema, unspecified type R60.9 [place] [id number] [place] [address] 83932- 0575 Mar, Obese E66.9 ; Pain in left shoulder M25.512 and Other chronic pain G89.29 [place] [id number] [place] [address] 18009- 1587 Feb, Anxiety about health F41.8 [place] [id number] [place] [address] 27348- 1923 Feb, Obese E66.9 ; 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 ; Shortness of breath R06.02 ; Palpitations R00.2 ; Bipolar disorder with severe depression F31.4 and 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 E40 [place] [address] [place] [address] 29939- 8321 Feb, Bipolar disorder with severe depression F31.4 [place] [id number] [place] [address] 84918- 7031 Feb, Injury of left shoulder and upper arm, initial encounter S49.92XA [place] [id number] [place] [address] 41113- 7035 January, [facility] [id number] [place] [address] 58728- 2978 Dec, Bipolar disorder with severe depression F31.4 [place] [id number] [place] [address] 40043- 0575 Dec, Obese E66.9 ; 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 ; Sleep apnea G47.30 ; Anxiety about health F41.8 and Bipolar disorder with severe depression F31.4 [address] [id number] [place] [address] 85851- 5681 Dec, Bipolar disorder with severe depression F31.4 [place] [id number] [place] [address] 86864- 3055 Dec, Bipolar disorder with severe depression F31.4 and Other halfway (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 Z79.899 [place] [id number] [place] [address] 94339- 4306 Nov, [place] [id number] [place] [address] 44009- 9696 Nov, [place] [id number] [place] [address] 75432- 7016 Nov, [facility] [id number] [place] [address] 49324- 4910 Nov, [address] [id number] [place] [address] 90848- 8990 Nov, Bipolar disorder with severe depression F31.4 [facility] [id number] [place] [address] 62611- 1671 Nov, Bipolar disorder with severe depression F31.4 [facility] [id number] [place] [address] 93236- 3275 16 Nov, 2015 Anxiety about health F41.8 ; Obese E66.9 ; 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 ; Bipolar disorder with severe depression F31.4 and Family history of obesity Z83.49 [place] [id number] [place] [address] 77551- 4928 14 Nov, 2015 [place] [address] 02200- 5814 Nov, Obese E66.9 ; 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 ; Cellulitis L03.90 ; Palpitations R00.2 ; Sleep apnea G47.30 and Shortness of breath R06.02 [address] [address] 17566- 5232 Sep, UTI (urinary tract infection) N39.0 and Bronchitis J40 [address] [address] 20960- 1206 Sep, [place] [address] 65079- 4215 Mar, Left carpal tunnel syndrome 354.0 [address] [address] 14257- 3400 Feb, Cellulitis 682.9 and Ankle edema 782.3 [address] [address] 05070- 1505 Feb, [place] [address] 59603- 0419 January, Carpal tunnel syndrome on left 354.0 [address] [address] 64828- 3347 January, Shoulder pain, left 719.41 [address] [place] 31181- 5511 January, [address] [address] 04811- 0586 Dec, [facility] [place] [facility] [address] [id number] [place] [address]- 7441 Dec, [facility] [place] [facility] [address] [id number] [place] [address]- 0626 Oct, [facility] [place] [facility] [address] [id number] [place] [address]- 1773 Oct, [facility] [place] [facility] [address] [id number] [place] [address]- 7194 Oct, [facility] [place] [facility] [address] [id number] [place] [address]- 3457 Oct, [facility] [place] [facility] [address] [id number] [place] [address]- 3436 Sep, [facility] [place] [facility] [address] [id number] [place] [address]- 1523 Sep, [facility] [place] [facility] [address] [id number] [place] [address]- 4797 Aug, [facility] [place] [facility] [address] [id number] [place] [address]- 5954 Aug, [facility] [place] [facility] [address] [id number] [place] [address]- 8696 Jun, [facility] [place] [facility] [address] [id number] [address]- 3569 Jun, [facility] [place] [facility] [address] [id number] [place] [address]- 0809 May, [facility] [place] [facility] [address] [id number] [place] [address]- 0037 May, [facility] [place] [facility] [address] [id number] [place] [address]- 2387 May, [facility] [place] [facility] [address] [id number] [place] [address]- 1407 May, [facility] [place] [facility] [address] [id number] [place] [address]- 8211 05 May, 2014 [facility] [place] [facility] [address] [id number] [place] [address]- 5254 May, [facility] [place] [facility] [address] [id number] [place] [address]- 8254 Apr, [facility] [place] [facility] [address] [id number] [place] [address]- 5159 Apr, [facility] [place] [facility] [address] [id number] [place] [address]- 6004 Apr, [facility] [place] [facility] [address] [id number] [place] [address]- 5591 Apr, [facility] [place] [facility] [address] [id number] [place] [address]- 5061 Apr, [facility] [place] [facility] [address] [id number] [place] [address]- 5885 Apr, [facility] [place] [facility] [address] [id number] [place] [address]- 8893 Apr, [facility] [place] [facility] [address] [id number] [place] [address]- 0426 Mar, [facility] [place] [facility] [address] [id number] [place] [address]- 2696 Mar, [facility] [place] [facility] [address] [id number] [place] [address]- 8336 Mar, [facility] [place] [facility] [address] [id number] [place] [address]- 5727 Mar, [facility] [place] [facility] [address] [id number] [place] [address]- 5489 Mar, [facility] [place] [facility] [address] [id number] [place] [address]- 0164 Mar, [facility] [place] [facility] [address] [id number] [place] [address]- 1496 Feb, [facility] [place] [facility] [address] [id number] [place] [address]- 1829 Feb, [facility] [place] [facility] [address] [id number] [place] [address]- 7273 Feb, [facility] [place] [facility] [address] [id number] [place] [address]- 5774 Feb, [facility] [place] [facility] [address] [id number] [place] [address]- 8154 January, [facility] [place] [facility] [address] [id number] [place] [address]- 0150 January, [facility] [place] [facility] [address] [id number] [place] [address]- 1221 January, [facility] [place] [facility] [address] [id number] [place] [address]- 2128 January, [facility] [place] [facility] [address] [id number] [place] [address]- 9587 January, [facility] [place] [facility] [address] [id number] [place] [address]- 4470 January, [facility] [place] [facility] [address] [id number] [place] [address]- 9950 January, [facility] [place] [facility] [address] [id number] [place] [address]- 0223 January, [facility] [place] [facility] [address] [id number] [place] [address]- 7736 January, [facility] [place] [facility] [address] [id number] [place] [address]- 4628 January, [facility] [place] [facility] [address] [id number] [place] [address]- 5242 January, [facility] [place] [facility] [address] [id number] [place] [address]- 9320 Dec, [facility] [place] [facility] [address] [id number] [place] [address]- 1069 Dec, [facility] [place] [facility] [address] [id number] [place] [address]- 0032 Dec, [facility] [place] [facility] [address] [id number] [place]- 6956 Dec, [facility] [place] [facility] [address] [id number] [place] [address]- 2893 Nov, [facility] [place] [facility] [address] [id number] [place] [address]- 2382 Nov, [facility] [place] [facility] [address] [id number] [place] [address]- 3302 Oct, [facility] [place] [facility] [address] [id number] [place] [address]- 3457 Oct, [facility] [place] [facility] [address] [facility] [id number] [place] [address]- 1606 Oct, [facility] [place] [facility] [address] [id number] [place] [address]- 1549 Oct, [facility] [place] [facility] [address] [id number] [place] [address]- 0213 Sep, [facility] [place] [facility] [address] [facility] [id number] [place] [address]- 7474 Sep, [facility] [place] [facility] [address] [id number] [place] [address]- 6176 Sep, [facility] [place] [facility] [address] [id number] [place] [address]- 4985 Sep, [facility] [place] [facility] [address] [id number] [place] [address]- 6592 Sep, [facility] [place] [facility] [address] [facility] [id number] [place] [address]- 1460 Sep, [facility] [place] [facility] [address] [facility] [id number] [place] [address]- 1723 Aug, [facility] [place] [facility] [address] [id number] [place] [address]- 5407 24 Aug, 2013 [facility] [place] [facility] [address] [id number] [place] 8439 Aug, [facility] [place] [facility] [address] [id number] [place] [address]- 1063 Aug, [facility] [place] [facility] [address] [id number] [place] [address]- 9610 Aug, [facility] [place] [facility] [address] [id number] [place] [address]- 6695 Aug, [facility] [place] [facility] [address] [id number] [place] [address]- 4600 Aug, [facility] [place] [facility] [address] [id number] [place] 4284 Aug, [facility] [place] [facility] [address] [id number] [place] [address]- 5124 Aug, [facility] [place] [facility] [address] [id number] [place] 3341 Aug, [facility] [place] [facility] [address] [id number] [place] [address]- 6865 Jul, [facility] [place] [facility] [address] [id number] [place] [address]- 4506 15 Jul, 2013 [facility] [place] [facility] [address] [id number] [place] [address]- 5906 Jul, [facility] [place] [facility] [address] [id number] [place] [address]- 6200 Jul, [facility] [place] [facility] [address] [id number] [place] [address]- 1984 Jun, [facility] [place] [facility] [address] [id number] [place] [address]- 1424 Jun, [facility] [place] [facility] [address] [id number] [place] [address]- 0825 Jun, [facility] [place] [facility] [address] [id number] [place] [address]- 8476 Jun, [facility] [place] [facility] [address] [id number] [place] [address]- 6088 Jun, [facility] [place] [facility] [address] [id number] [place] [address]- 6234 May, [facility] [place] [facility] [address] [id number] [place] [address]- 3295 May, [facility] [place] [facility] [address] [id number] [place] [address]- 5489 Apr, [facility] [place] [facility] [address] [id number] [place] [address]- 1339 Mar, [facility] [place] [facility] [address] [id number] [place] [address]- 0799 Mar, [facility] [place] [facility] [address] [id number] [place] [address]- 3682 Mar, [facility] [place] [facility] [address] [id number] [place] [address]- 6562 Mar, [facility] [place] [facility] [address] [id number] [place] [address]- 7074 Mar, [facility] [place] [facility] [address] [id number] [place] [address]- 9598 Mar, [facility] [place] [facility] [address] [id number] [place] [address]- 5959 Feb, [facility] [place] [facility] [address] [id number] [place] [address] Feb, [facility] [place] [facility] [address] [id number] [place] [address] 16 Feb, 2013 [facility] [place] [facility] [address] [id number] [place] [address] 15 Feb, 2013 [facility] [place] [facility] [address] [id number] [place] [address] 14 Feb, 2013 [facility] [address] [id number] [place] [address] 13 Feb, 2013 [facility] [address] [id number] [place] [address] 11 Feb, 2013 [facility] [address] [id number] [place] [address] January, [facility] [address] [id number] [place] [address] January, [facility] [address] [id number] [place] [address] Nov, [facility] [address] [id number] [place] [address] Nov, [facility] [address] [id number] [place] [address] Nov, [facility] [address] [id number] [place] [address] Nov, [facility] [address] [id number] [place] [address] Oct, [facility] [address] [id number] [place] [address] Oct, [facility] [address] [id number] [place] [address] Oct, [facility] [address] [id number] [place] [address] Sep, [facility] [place] [facility] [address] [id number] [place] [address] Sep, [facility] [place] [facility] [address] [id number] [place] [address] 15 Sep, 2012 [facility] [place] [facility] [address] [id number] [place] [address] Sep, [facility] [place] [facility] [address] [id number] [place] [address] Aug, [facility] [place] [facility] [address] [id number] [place] [address] Aug, [facility] [place] [facility] [address] [id number] [place] [address] Jul, [facility] [place] [facility] [address] [id number] [place] [address] Jul, [facility] [place] [facility] [address] [id number] [place] [address] Jun, [facility] [place] [facility] [address] [id number] [place] [address] Jun, [facility] [place] [facility] [address] [facility] [id number] [place] [address] Jun, [facility] [place] [facility] [address] [id number] [place] [address] Jun, [facility] [place] [facility] [address] [id number] [place] [address] Jun, [facility] [place] [facility] [address] [facility] [id number] [place] [address] Jun, [facility] [place] [facility] [address] [facility] [id number] [place] [address] Jun, [facility] [place] [facility] [address] [id number] [place] [address] Jun, [facility] [place] [facility] [address] [id number] [place] [address] Jun, [facility] [place] [facility] [address] [id number] [place] [address] Jun, [facility] [place] [facility] [address] [facility] [id number] [place] [address] Jun, [facility] [place] [facility] [address] [id number] [place] [address] Jun, [facility] [place] [facility] [address] [id number] [place] [address] Jun, [facility] [place] [facility] [address] [id number] [place] [address] Jun, [facility] [facility] [address] [id number] [place] [address] Jun, [facility] [place] [facility] [address] [id number] [place] [address] Jun, [facility] [place] [facility] [address] [id number] [place] [address] 29 May, 2012 [facility] [place] [facility] [address] [id number] [place] [address] 26 May, 2012 [facility] [place] [facility] [address] [id number] [place] [address] 25 May, 2012 [facility] [place] [facility] [address] [id number] [place] [address] 24 May, 2012 [facility] [place] [facility] [address] [id number] [place] [address] May, [facility] [place] [facility] [address] [facility] [id number] [place] [address] Mar, [facility] [place] [facility] [address] [id number] [place] [address] Mar, [facility] [place] [facility] [address] [id number] [place] [address] Mar, [facility] [place] [facility] [address] [id number] [place] [address] Mar, [facility] [place] [facility] [address] [facility] [id number] [place] [address] Mar, [facility] [place] [facility] [address] [facility] [id number] [place] [address] Mar, [facility] [place] [facility] [address] [id number] [place] [address] 25 Feb, 2012 [facility] [place] [facility] [address] [id number] [place] [address] Feb, [facility] [place] [facility] [address] [id number] [place] [address] Feb, [facility] [place] [facility] [address] [id number] [place] [address] Feb, [facility] [place] [facility] [address] [id number] [place] [address] Feb, [facility] [place] [facility] [address] [id number] [place] [address] January, [facility] [facility] [address] [id number] [place] [address] Dec, [facility] [place] [facility] [address] [id number] [place] [address] Dec, [facility] [address] [id number] [place] [address] Dec, [facility] [place] [facility] [address] [id number] [place] [address] Dec, [facility] [address] [id number] [place] [address] Dec, [facility] [place] [facility] [address] [id number] [place] [address] Nov, [facility] [place] [facility] [address] [id number] [place] [address] Oct, [facility] [place] [facility] [address] [id number] [place] [address] Sep, [facility] [facility] [address] [id number] [place] [address] Aug, [facility] [facility] [address] [id number] [place] [address] Jul, [facility] [address] [facility] [id number] [place] [address] Jul, [facility] [address] [id number] [place] [address] Jul, [facility] [address] [id number] [place] [address] Apr, [facility] [id number] [place] [address] Apr, [facility] [address] [facility] [id number] [place] [address] Apr, [facility] [address] [facility] [id number] [place] [address] January, IMMUNIZATIONS No Known Immunizations SOCIAL HISTORY Never Assessed REASON FOR VISIT Medication question PLAN OF CARE VITAL SIGNS MEDICATIONS Medication Instructions Dosage Frequency Start Date End Date Duration Status Topamax Sprinkle 25 MG Orally. may swallow whole or open and sprinle on food and swallow immediately. 2 times a day 2 capsules 12h January, 30 day (s) Active RESULTS No Results PROCEDURES No Known [...] bronchitis ER visit -04/15-06-30 Hospitalization History Celluliti BLE-[facility] 02/08/17 Hospitalization History Cellulitis-[facility] 04/22/17 Hospitalization History cellulitis-[facility] December 2017
--- OUTSIDE RECORDS SUMMARY | 2018-10-07 15:59 | XMS REPORT ---
Author Author CAROLYNE STARR [facility] Address [address] [place] [address] Care Team Providers Care [employer] Name Role Phone CAROLYNE STARR Unavailable PROBLEMS Type Condition ICD9-CM Code KTH77-TI Code Onset Dates Condition Status SNOMED Code Problem Mild intermittent asthma without complication J45.20 Active 500961027 Problem Venous insufficiency I87.2 Active 57191792 Problem Morbid obesity E66.01 Active 500392404 Problem BMI 50.0-59.9, adult Z68.43 Active 292972846 Problem Bipolar affective disorder, currently depressed, mild F31.31 Active 803528640 Problem Methamphetamine use disorder, severe, 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 Active 64851460 Problem Cervical disc disease M50.90 Active 395325502 Problem Alcohol use disorder, mild, abuse F10.10 Active 00565101 Problem Cocaine use disorder, severe, 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 Active 91296883 Problem Bipolar disorder with severe depression F31.4 Active 897206157 Problem Pain in left shoulder M25.512 Active 82427295 Problem 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 829547951 Problem Sleep apnea G47.30 Active 72937445 Problem Cervical radiculopathy M54.12 Active 88107374 ALLERGIES No Known Allergies ENCOUNTERS Encounter Location Date Diagnosis [facility] [id number] [address] Mar, [facility] [address], [place] [address] Mar, [facility] [address], [place] [address] Mar, Cellulitis of left lower limb L03.116 ; BMI 50.0-59.9, adult Z68.43 and Acute nasopharyngitis J00 [facility] [id number] [place] [address] 73709- 0270 Feb, 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 ; Venous insufficiency I87.2 and BMI 50.0-59.9, adult Z68.43 [facility] [id number] [place] [address] 95800- 2309 Feb, Cellulitis of left lower extremity L03.116 and BMI 50.0-59.9 , adult Z68.43 [facility] [id number] [place] [address] 11270- 5234 Feb, [facility] [id number] [place] [address] 77247- 9805 January, [facility] [id number] [place] [address] 92592- 9362 January, Medicare annual wellness visit, initial Z00.00 ; Morbid obesity E66.01 ; Mild intermittent asthma without complication J45.20 ; Bipolar disorder with severe depression F31.4 ; 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 ; Venous insufficiency I87.2 and Encounter for immunization Z23 [facility] [id number] [place] [address] 45759- 6170 January, [facility] [facility] [address] 78642- 7965 January, Cellulitis of left lower extremity L03.116 and BMI 50.0-59.9 , adult Z68.43 [facility] [id number] [place] [address] 93829- 8578 Dec, Non-pressure chronic ulcer of left calf, 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 ; History of cellulitis Z87.2 and BMI 50.0-59.9, adult Z68.43 [facility] [id number] [place] [address] 20239 -5416 Dec, Cloudy urine R82.90 ; Cellulitis of lower extremity, unspecified laterality L03.119 and BMI 50.0-59.9, adult Z68.43 [facility] [id number] [place] [address] 13677- 1825 13 Nov, 2017 Sleep apnea G47.30 [facility] [address] 27149- 4381 08 Nov, 2017 Bipolar affective disorder, currently depressed, mild F31.31 ; Methamphetamine use disorder, severe, 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 ; Cocaine use disorder, severe, 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 ; Alcohol use disorder, mild, abuse F10.10 and BMI 50.0-59.9, adult Z68.43 [place] [address] 37131- 9138 15 Oct, 2017 BMI 50.0-59.9, adult Z68.43 ; Bipolar affective disorder, currently depressed, mild F31.31 ; Methamphetamine use disorder, severe, 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 ; Cocaine use disorder, severe, 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 and Alcohol use disorder, mild, abuse F10.10 [place] [address] 30154- 7132 14 Oct, 2017 [place] [address] 01201- 2784 01 Oct, 2017 BMI 50.0-59.9, adult Z68.43 ; 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 and Morbid obesity E66.01 [facility] [id number] [place] [address] 72029 -7976 Sep, Acute suppurative otitis media of right ear without spontaneous rupture of tympanic membrane, recurrence not specified H66.001 and BMI 60.0-69.9, adult Z68.44 [facility] [address] 56094- 3090 Sep, [facility] [facility] [address] 27946- 8660 Aug, Cervical disc disease M50.[address] 28535- 1886 Aug, [facility] [address] [place] [address] 69682- 0899 Aug, Mild intermittent asthma without complication J45.20 ; Cervical radiculopathy M54.12 ; Venous insufficiency I87.2 ; Morbid obesity E66.01 and BMI 50.0-59.9, adult Z68.43 [facility] [id number] [place] [address] 70594- 1877 Jun, [facility] [id number] [place] [address] 37962- 0746 May, [facility] [id number] [place] [address] 88387- 9596 Apr, [facility] [id number] [place] [address] 34195- 6482 Apr, 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 [facility] [address] [id number] Apr, [facility] [facility] [id number] [place] [address] 44554- 7962 Apr, 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 [facility] [id number] [place] [address] 56822- 6624 Apr, Cellulitis of left lower extremity L03.116 ; Localized edema R60.0 ; 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 and Bipolar disorder with severe depression F31.4 [facility] [id number] [place] [address] 95023- 5406 Apr, Cellulitis of unspecified part of limb L03.119 and 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 [facility] [id number] [place] [address] 06654- 0812 Mar, [facility] [address] [place] [address] 08112 -9755 Mar, Cellulitis of left lower limb L03.116 [facility] [id number] [place] [address] 75072- 9311 Mar, 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 and Cellulitis L03.90 [id number] [place] [address] 43151- 1483 Mar, Bronchitis J40 and Cellulitis L03.90 [facility] [id number] [place] [address] 53856- 5097 January, [facility] [address] 11632- 8769 January, [facility] [facility] [address] 18539- 2623 Nov, 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 ; Cellulitis L03.90 ; Obese E66.9 ; Pain in left shoulder M25.512 ; Localized edema R60.0 ; Sleep apnea G47.30 ; Anxiety about health F41.8 and Bipolar disorder with severe depression F31.4 [id number] [place] [address] 40368- 1331 Aug, Obese E66.9 ; 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 ; Sleep apnea G47.30 ; Cellulitis L03.90 ; Cellulitis of unspecified part of limb L03.119 ; Intractable tension-type headache, unspecified chronicity pattern G44.201 ; Concussion, without loss of consciousness, subsequent encounter S06.0X0D and Localized edema R60.0 [facility] [id number] [place] [address] 37554- 3291 Jun, [id number] [place] [address] 73692- 8440 Jun, 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 ; Other chronic pain G89.29 ; Cellulitis of unspecified part of limb L03.119 and Cutaneous abscess of limb, unspecified L02.419 [facility] [facility] [id number] [place] [address] 18085- 5740 Jun, [facility] [facility] [address] 04778- 0339 May, [facility] [facility] [address] [place] [address] 46580- 7677 May, [facility] [id number] [place] [address] 27427- 5079 Apr, Impingement syndrome, shoulder, left M75.42 and SLAP lesion of left shoulder S43.432A [facility] [facility] [id number] [place] [address] 49342- 1589 Apr, [facility] [id number] [place] [address] 05946- 6880 Apr, [facility] [id number] [place] [address] 43530- 0938 Apr, [facility] [id number] [place] [address] 25804- 1438 Apr, Cellulitis L03.90 ; Obese E66.9 ; Pain in left shoulder M25.512 and Edema, unspecified type R60.9 [facility] [facility] [id number] [place] [address] 71498- 2957 Mar, Obese E66.9 ; Pain in left shoulder M25.512 and Other chronic pain G89.29 [facility] [id number] [place] [address] 88496- 3631 Feb, Anxiety about health F41.8 [facility] [facility] [id number] [place] [address] 48252- 2086 Feb, Obese E66.9 ; 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 ; Shortness of breath R06.02 ; Palpitations R00.2 ; Bipolar disorder with severe depression F31.4 and 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 E40 [place] [address] [place] [address] 54336- 1168 09 Feb, 2016 Bipolar disorder with severe depression F31.4 [facility] [facility] [id number] [place] [address] 89025- 3169 Feb, Injury of left shoulder and upper arm, initial encounter S49.92XA [facility] [facility] [id number] [place] [address] 70062- 6288 January, [facility] [id number] [place] [address] 36074- 0221 Dec, Bipolar disorder with severe depression F31.4 [facility] [facility] [id number] [place] [address] 37921- 7766 Dec, Obese E66.9 ; 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 ; Sleep apnea G47.30 ; Anxiety about health F41.8 and Bipolar disorder with severe depression F31.4 [facility] [id number] [place] [address] 44611- 3751 Dec, Bipolar disorder with severe depression F31.4 [facility] [facility] [id number] [place] [address] 63674- 7986 Dec, Bipolar disorder with severe depression F31.4 and Other long-term (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 Z79.899 [facility] [facility] [id number] [place] [address] 35461- 4443 Nov, [place] [id number] [place] [address] 88945- 9624 Nov, [place] [facility] [id number] [place] [address] 51707- 7025 Nov, [facility] [id number] [place] [address] 19639- 8684 Nov, [facility] [id number] [place] [address] 66349- 6263 Nov, Bipolar disorder with severe depression F31.4 [facility] [id number] [place] [address] 54527- 4442 Nov, Bipolar disorder with severe depression F31.4 [facility] [id number] [place] [address] 44431- 0625 16 Nov, 2015 Anxiety about health F41.8 ; Obese E66.9 ; 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 ; Bipolar disorder with severe depression F31.4 and Family history of obesity Z83.49 [place] [id number] [place] [address] 29617- 2947 14 Nov, 2015 [place] [address] 00941- 0307 Nov, Obese E66.9 ; 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 ; Cellulitis L03.90 ; Palpitations R00.2 ; Sleep apnea G47.30 and Shortness of breath R06.02 [address] [address] 51825- 4105 Sep, UTI (urinary tract infection) N39.0 and Bronchitis J40 [place] [address] 06372- 1239 Sep, [place] [address] 88025- 7835 Mar, Left carpal tunnel syndrome 354.0 [place] [address] 38148- 1123 Feb, Cellulitis 682.9 and Ankle edema 782.3 [place] [id number] [place] [address] 11226- 1561 Feb, [place] [address] 15933- 1738 January, Carpal tunnel syndrome on left 354.0 [address] [address] 28176- 9391 January, Shoulder pain, left 719.41 [place] [address] 95379- 2526 January, [place] [address] 44648- 8339 Dec, [facility] [place] [facility] [address] [id number] [place] [address]- 5037 Dec, [facility] [place] [facility] [address] [id number] [place] [address]- 5348 Oct, [facility] [place] [facility] [address] [id number] [place] [address]- 4770 Oct, [facility] [place] [facility] [address] [id number] [place] [address]- 3795 Oct, [facility] [place] [facility] [address] [id number] [place] [address]- 0342 Oct, [facility] [place] [facility] [address] [id number] [place] [address]- 2631 Sep, [facility] [place] [facility] [address] [id number] [place] [address]- 1204 Sep, [facility] [place] [facility] [address] [id number] [address]- 7436 Aug, [facility] [place] [facility] [address] [id number] [place] [address]- 8960 Aug, [facility] [place] [facility] [address] [facility] [id number], [place] [address]- 0086 Jun, [facility] [place] [facility] [address] [id number], [place] [address]- 2368 Jun, [facility] [place] [facility] [address] [id number], [place] [address]- 2690 May, [facility] [place] [facility] [address] [id number] [place] [address]- 2975 May, [facility] [place] [facility] [address] [id number], [place] [address]- 0730 May, [facility] [place] [facility] [address] [id number] [place] [address]- 9544 May, [facility] [place] [facility] [address] [id number] [place] [address]- 6872 05 May, 2014 [facility] [place] [facility] [address] [id number] [place] [address]- 0926 May, [facility] [place] [facility] [address] [id number] [place] [address]- 9624 Apr, [facility] [place] [facility] [address] [id number] [place] [address]- 5544 Apr, [facility] [place] [facility] [address] [id number] [place] [address]- 6246 Apr, [facility] [place] [facility] [address] [id number] [place] [address]- 7914 Apr, [facility] [place] [facility] [address] [id number] [place] [address]- 5978 Apr, [facility] [place] [facility] [address] [id number] [place] [address]- 8242 Apr, [facility] [place] [facility] [address] [id number] [place] [address]- 6617 Apr, [facility] [place] [facility] [address] [id number] [place] [address]- 3360 Mar, [facility] [place] [facility] [address] [id number] [place] [address]- 0826 Mar, [facility] [place] [facility] [address] [id number] [place] [address]- 2270 Mar, [facility] [place] [facility] [address] [id number] [place] [address]- 9192 Mar, [facility] [place] [facility] [address] [id number] [place] [address]- 2672 Mar, [facility] [place] [facility] [address] [id number] [place] [address]- 8746 Mar, [facility] [place] [facility] [address] [id number] [place] [address]- 0109 Feb, [facility] [place] [facility] [address] [id number] [place] [address]- 0515 Feb, [facility] [place] [facility] [address] [id number] [place] [address]- 4972 Feb, [facility] [place] [facility] [address] [id number] [place] [address]- 9241 Feb, [facility] [place] [facility] [address] [id number] [place] [address]- 5260 January, [facility] [place] [facility] [address] [id number] [place] [address]- 2023 January, [facility] [place] [facility] [address] [id number] [place] [address]- 0488 January, [facility] [place] [facility] [address] [id number] [place] [address]- 2249 January, [facility] [place] [facility] [address] [id number] [place] [address]- 1241 January, [facility] [place] [facility] [address] [id number] [place] [address]- 2260 January, [facility] [place] [facility] [address] [id number] [place] [address]- 7216 January, [facility] [place] [facility] [address] [id number] [place] [address]- 4278 January, [facility] [place] [facility] [address] [id number] [place] [address]- 4160 January, [facility] [place] [facility] [address] [id number] [place] [address]- 6225 January, [facility] [place] [facility] [address] [id number] [place] [address]- 2426 January, [facility] [place] [facility] [address] [id number] [place] [address]- 2368 Dec, [facility] [place] [facility] [address] [id number] [place] [address]- 1082 Dec, [facility] [place] [facility] [address] [id number] [place] [address]- 5470 Dec, [facility] [place] [facility] [address] [id number] [place] 1626 Dec, [facility] [place] [facility] [address] [facility] [id number] [place] [address]- 0707 Nov, [facility] [place] [facility] [address] [id number] [place] [address]- 1713 Nov, [facility] [place] [facility] [address] [id number] [place] [address]- 1340 Oct, [facility] [place] [facility] [address] [id number] [place] [address]- 4667 Oct, [facility] [place] [facility] [address] [facility] [id number] [place] [address]- 7874 Oct, [facility] [place] [facility] [address] [id number] [place] [address]- 4182 Oct, [facility] [place] [facility] [address] [id number] [place] [address]- 9443 Sep, [facility] [place] [facility] [address] [facility] [id number] [place] [address]- 8928 Sep, [facility] [place] [facility] [address] [id number] [place] [address]- 4910 Sep, [facility] [place] [facility] [address] [id number] [place] [address]- 1200 Sep, [facility] [place] [facility] [address] [id number] [place] [address]- 7029 Sep, [facility] [place] [facility] [address] [facility] [id number] [place] [address]- 1369 Sep, [facility] [place] [facility] [address] [facility] [id number] [place] [address]- 6467 Aug, [facility] [place] [facility] [address] [id number] [place] [address]- 0807 24 Aug, 2013 [facility] [address] [id number] [place] 2450 Aug, [facility] [place] [facility] [address] [id number] [place] 2419 Aug, [facility] [place] [facility] [address] [id number] [place] [address]- 3378 Aug, [facility] [place] [facility] [address] [id number] [place] [address]- 4352 Aug, [facility] [place] [facility] [address] [id number] [place] [address]- 4545 Aug, [facility] [place] [facility] [address] [id number] [place] [address]- 9988 Aug, [facility] [place] [facility] [address] [id number] [place] [address]- 2939 Aug, [facility] [place] [facility] [address] [id number] [place] [address]- 8188 Aug, [facility] [place] [facility] [address] [id number] [place] [address]- 7045 Jul, [facility] [place] [facility] [address] [id number] [place] [address]- 2090 15 Jul, 2013 [facility] [place] [facility] [address] [id number] [place] [address]- 3390 Jul, [facility] [place] [facility] [address] [id number] [place] [address]- 0827 Jul, [facility] [place] [facility] [address] [id number] [place] [address]- 4474 Jun, [facility] [place] [facility] [address] [id number] [place] [address]- 1808 Jun, [facility] [place] [facility] [address] [id number] [place] [address]- 6146 Jun, [facility] [place] [facility] [address] [id number] [place] [address]- 5270 Jun, [facility] [place] [facility] [address] [id number] [place] [address]- 5411 Jun, [facility] [place] [facility] [address] [id number] [place] [address]- 3371 May, [facility] [place] [facility] [address] [id number] [place] [address]- 5223 May, [facility] [place] [facility] [address] [id number] [place] [address]- 3925 Apr, [facility] [place] [facility] [address] [id number] [place] [address]- 2971 Mar, [facility] [place] [facility] [address] [id number] [place] [address]- 1841 Mar, [facility] [place] [facility] [address] [id number] [place] [address]- 4482 Mar, [facility] [place] [facility] [address] [id number] [place] [address]- 5604 Mar, [facility] [place] [facility] [address] [id number] [place] [address]- 2769 Mar, [facility] [place] [facility] [address] [id number], [place] [address] Mar, [facility] [place] [facility] [address] [id number], [place] [address] Feb, [facility] [place] [facility] [address] [id number] [place] [address] Feb, [facility] [place] [facility] [address] [id number], [place] [address] 16 Feb, 2013 [facility] [place] [facility] [address] [id number] [place] [address] 15 Feb, 2013 [facility] [place] [facility] [address] [id number] [place] [address] 14 Feb, 2013 [facility] [address] [id number] [place] [address] 13 Feb, 2013 [facility] [address] [id number] [place] [address] 11 Feb, 2013 [facility] [address] [id number] [place] [address] January, [facility] [address] [id number] [place] [address] January, [facility] [address] [id number] [place] [address] Nov, [facility] [address] [id number] [place] [address] Nov, [facility] [address] [id number] [place] [address] Nov, [facility] [address] [id number] [place] [address] Nov, [facility] [address] [id number] [place] [address] Oct, [facility] [address] [id number] [place] [address] Oct, [facility] [address] [id number] [place] [address] Oct, [facility] [address] [id number] [place] [address] Sep, [facility] [place] [facility] [address] [id number] [place] [address] Sep, [facility] [place] [facility] [address] [id number] [place] [address] 15 Sep, 2012 [facility] [place] [facility] [address] [id number] [place] [address] Sep, [facility] [place] [facility] [address] [id number] [place] [address] Aug, [facility] [place] [facility] [address] [id number] [place] [address] Aug, [facility] [place] [facility] [address] [id number] [place] [address] Jul, [facility] [place] [facility] [address] [id number] [place] [address] Jul, [facility] [place] [facility] [address] [id number] [place] [address] Jun, [facility] [place] [facility] [address] [id number] [place] [address] Jun, [facility] [place] [facility] [address] [id number] [place] [address] Jun, [facility] [place] [facility] [address] [id number], [place] [address] Jun, [facility] [place] [facility] [address] [id number] [place] [address] Jun, [facility] [place] [facility] [address] [id number], [place] [address] Jun, [facility] [place] [facility] [address] [facility] [id number], [place] [address] Jun, [facility] [place] [facility] [address] [id number], [place] [address] Jun, [facility] [place] [facility] [address] [id number], [place] [address] Jun, [facility] [place] [facility] [address] [id number], [place] [address] Jun, [facility] [place] [facility] [address] [id number], [place] [address] Jun, [facility] [place] [facility] [address] [id number], [place] [address] Jun, [facility] [place] [facility] [address] [id number] [place] [address] Jun, [facility] [place] [facility] [address] [id number] [place] [address] Jun, [facility] [place] [facility] [address] [id number] [place] [address] Jun, [facility] [place] [facility] [address] [id number] [place] [address] Jun, [facility] [place] [facility] [address] [id number] [place] [address] 29 May, 2012 [facility] [place] [facility] [address] [id number] [place] [address] 26 May, 2012 [facility] [place] [facility] [address] [id number] [place] [address] May, [facility] [place] [facility] [address] [id number] [place] [address] 24 May, 2012 [facility] [place] [facility] [address] [id number] [place] [address] May, [facility] [place] [facility] [address] [id number] [place] [address] Mar, [facility] [place] [facility] [address] [id number] [place] [address] Mar, [facility] [place] [facility] [address] [id number] [place] [address] Mar, [facility] [place] [facility] [address] [id number] [place] [address] Mar, [facility] [place] [facility] [address] [id number] [place] [address] Mar, [facility] [place] [facility] [address] [id number] [place] [address] Mar, [facility] [place] [facility] [address] [id number] [place] [address] Feb, [facility] [place] [facility] [address] [id number] [place] [address] Feb, [facility] [place] [facility] [address] [id number] [place] [address] Feb, [facility] [place] [facility] [address] [id number] [place] [address] Feb, [facility] [place] [facility] [address] [id number] [place] [address] Feb, [facility] [place] [facility] [address] [id number] [place] [address] January, [facility] [place] [facility] [address] [id number] [place] [address] Dec, [facility] [place] [facility] [address] [id number] [place] [address] Dec, [facility] [place] [facility] [address] [id number] [place] [address] Dec, [facility] [place] [facility] [address] [id number] [place] [address] Dec, [facility] [place] [facility] [address] [id number] [place] [address] Dec, [facility] [place] [facility] [address] [id number] [place] [address] Nov, [facility] [place] [facility] [address] [id number] [place] [address] Oct, [facility] [place] [facility] [address] [id number] [place] [address] Sep, [facility] [place] [facility] [address] [id number] [place] [address] Aug, [facility] [place] [facility] [address] [id number] [place] [address] Jul, [facility] [address] [facility] [id number], [place] [address] Jul, [facility] [id number] [address] Jul, [facility] [address] [id number], [place] [address] Apr, [facility] [id number], [place] [address] Apr, [facility] [address] [facility] [id number], [place] [address] Apr, [facility] [id number], [place] [address] January, IMMUNIZATIONS Vaccine Route Administration Date Status TDAP (BOOSTRIX) IM Intramuscular January 27, 2018 Administered PPSV23 (PNEUMOVAX) IM Intramuscular January 27, 2018 Administered SOCIAL HISTORY Never Assessed REASON FOR VISIT Medicare AW - Initial Visit -NM PLAN OF CARE Activity Details Follow Up 1 Year, prn Reason: VITAL SIGNS Height 65 in 2018-01-27 Weight 344 lbs 2018-01-27 Temperature 97.6 degrees Fahrenheit 2018-01-27 Heart Rate 88 bpm 2018-01-27 Respiratory Rate 18 2018-01-27 Oximetry on room air:98 % 2018-01-27 BMI 57.24 kg/m2 2018-01-27 Blood pressure systolic 126 mmHg 2018-01-27 Blood pressure diastolic 74 mmHg 2018-01-27 MEDICATIONS Medication Instructions Dosage Frequency Start Date End Date Duration Status Silvadene 1 % Externally TID PRN 1 application to affected area January, Active Topamax 50 MG Orally Twice a day 1 tablet 12h 15 Oct, 2017 30 days Active RESULTS No Results PROCEDURES Procedure Date Ordered Result Body Site IMMUNIZATION ADMIN, EACH ADD (please include units) January 27, 2018 [facility] VISIT IPPE/AWV January 27, 2018 ISAMAR BRANHAM VST; DIANA PPS INIT January 27, 2018 ADMN PNEUMCOC VAC NO FEE DAY January 27, 2018 PPSV23 (PNEUMOVAX) January 27, 2018 SINGLE IMMUNIZATION ADMIN January 27, 2018 PT TOBACCO SCREEN RCVD TLK January 27, 2018 FALL RISK ASSESSMENT DOCD January 27, 2018 TDAP (BOOSTRIX) January 27, 2018 CLIN DEPRESSION SCREEN DOC January 27, 2018 INSTRUCTIONS MEDICATIONS ADMINISTERED No Known Medications [...] bronchitis ER visit -04/15-06-30 Hospitalization History Celluliti BLE-[facility] 02/08/17 Hospitalization History Cellulitis-[facility] 04/22/17 Hospitalization History cellulitis-[facility] December 2017
--- OUTSIDE RECORDS SUMMARY | 2018-10-07 15:59 | XMS REPORT ---
Author Author CAROLYNE STARR 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 Active 59094564 Problem Cervical disc disease M50.90 Active 310210838 Problem Alcohol use disorder, mild, abuse F10.10 Active 77539288 Problem Cocaine use disorder, severe, 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 Active 94710630 Problem Bipolar disorder with severe depression F31.4 Active 192004623 Problem Pain in left shoulder M25.512 Active 67950553 Problem 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 028526203 Problem Sleep apnea G47.30 Active 98583925 Problem Cervical radiculopathy M54.12 Active 16657896 ALLERGIES No Information ENCOUNTERS Encounter Location Date Diagnosis [facility] [id number] [address] Mar, [facility] [address] [address] 2009 Mar, [facility] [address] [address] Mar, Cellulitis of left lower limb L03.116 ; BMI 50.0-59.9, adult Z68.43 and Acute nasopharyngitis J00 [facility] [id number] [place] [address] 44307- 9201 Feb, 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 ; Venous insufficiency I87.2 and BMI 50.0-59.9, adult Z68.43 [address] [address]- [address] Feb, Cellulitis of left lower extremity L03.116 and BMI 50.0-59.9 , adult Z68.43 [place] [id number] [place] [address] 03858- 9249 Feb, [place] [address] 01630- 1721 January, [place] [address] 76872- 3556 January, Medicare annual wellness visit, initial Z00.00 ; Morbid obesity E66.01 ; Mild intermittent asthma without complication J45.20 ; Bipolar disorder with severe depression F31.4 ; 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 ; Venous insufficiency I87.2 and Encounter for immunization Z23 [place] [id number] [place] [address] 48136- 4415 January, [place] [address] 26979- 3932 January, Cellulitis of left lower extremity L03.116 and BMI 50.0-59.9 , adult Z68.43 [place] [id number] [place] [address] 81666- 9153 Dec, Non-pressure chronic ulcer of left calf, 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 ; History of cellulitis Z87.2 and BMI 50.0-59.9, adult Z68.43 [facility] [id number] [place] [address] 23746 -4701 Dec, Cloudy urine R82.90 ; Cellulitis of lower extremity, unspecified laterality L03.119 and BMI 50.0-59.9, adult Z68.43 [place] [id number] [place] [address] 92210- 8294 13 Nov, 2017 Sleep apnea G47.[address] [address]25- 2997 08 Nov, 2017 Bipolar affective disorder, currently depressed, mild F31.31 ; Methamphetamine use disorder, severe, 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 ; Cocaine use disorder, severe, 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 ; Alcohol use disorder, mild, abuse F10.10 and BMI 50.0-59.9, adult Z68.43 [place] [address] 00957- 0326 15 Oct, 2017 BMI 50.0-59.9, adult Z68.43 ; Bipolar affective disorder, currently depressed, mild F31.31 ; Methamphetamine use disorder, severe, 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 ; Cocaine use disorder, severe, 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 and Alcohol use disorder, mild, abuse F10.10 [place] [address] 93248- 9392 14 Oct, 2017 [place] [address] 58502- 7521 01 Oct, 2017 BMI 50.0-59.9, adult Z68.43 ; 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 and Morbid obesity E66.01 [facility] [id number] [place] [address] 78850 -5219 Sep, Acute suppurative otitis media of right ear without spontaneous rupture of tympanic membrane, recurrence not specified H66.001 and BMI 60.0-69.9, adult Z68.44 [place] [address] 97248- 3442 Sep, [address] 82334- 9438 Aug, Cervical disc disease M50.[address] 60078- 1911 Aug, [facility] [address] [place] [address] 71098- 7889 Aug, Mild intermittent asthma without complication J45.20 ; Cervical radiculopathy M54.12 ; Venous insufficiency I87.2 ; Morbid obesity E66.01 and BMI 50.0-59.9, adult Z68.43 [place] [id number] [place] [address] 02237- 3121 Jun, [facility] [id number] [place] [address] 08916- 4303 May, [place] [id number] [place] [address] 99706- 9948 Apr, [place] [address] 65789- 7331 Apr, 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 [facility] [address] [id number] Apr, [place] [id number] [place] [address] 22947- 4323 Apr, 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 [place] [id number] [place] [address] 74119- 1622 Apr, Cellulitis of left lower extremity L03.116 ; Localized edema R60.0 ; 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 and Bipolar disorder with severe depression F31.4 [facility] [id number] [place] [address] 53496- 7675 Apr, Cellulitis of unspecified part of limb L03.119 and 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 [facility] [id number] [place] [address] 15828- 6527 Mar, [facility] [id number] [place] [address] 85349 -2216 Mar, Cellulitis of left lower limb L03.116 [facility] [address] 51853- 4686 Mar, 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 and Cellulitis L03.90 [id number] [place] [address] 28639- 8039 Mar, Bronchitis J40 and Cellulitis L03.90 [place] [id number] [place] [address] 14830- 6730 January, [place] [address] 60225- 3999 January, [place] [id number] [place] [address] 67242- 3492 Nov, 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 ; Cellulitis L03.90 ; Obese E66.9 ; Pain in left shoulder M25.512 ; Localized edema R60.0 ; Sleep apnea G47.30 ; Anxiety about health F41.8 and Bipolar disorder with severe depression F31.4 [id number] [place] [address] 46263- 0907 Aug, Obese E66.9 ; 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 ; Sleep apnea G47.30 ; Cellulitis L03.90 ; Cellulitis of unspecified part of limb L03.119 ; Intractable tension-type headache, unspecified chronicity pattern G44.201 ; Concussion, without loss of consciousness, subsequent encounter S06.0X0D and Localized edema R60.0 [place] [id number] [place] [address] 11757- 6018 Jun, [id number] [place] [address] 89669- 7663 Jun, 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 ; Other chronic pain G89.29 ; Cellulitis of unspecified part of limb L03.119 and Cutaneous abscess of limb, unspecified L02.419 [place] [id number] [place] [address] 00039- 3349 Jun, [place] [id number] [place] [address] 80956- 6136 May, [place] [address] [place] [address] 99328- 1427 May, [place] [id number] [place] [address] 94602- 8713 Apr, Impingement syndrome, shoulder, left M75.42 and SLAP lesion of left shoulder S43.432A [place] [id number] [place] [address] 36353- 8602 Apr, [place] [id number] [place] [address] 73915- 1173 Apr, [place] [id number] [place] [address] 35080- 1830 Apr, [place] [id number] [place] [address] 07793- 4636 Apr, Cellulitis L03.90 ; Obese E66.9 ; Pain in left shoulder M25.512 and Edema, unspecified type R60.9 [place] [id number] [place] [address] 91410- 3658 Mar, Obese E66.9 ; Pain in left shoulder M25.512 and Other chronic pain G89.29 [place] [id number] [place] [address] 68930- 9101 Feb, Anxiety about health F41.8 [place] [id number] [place] [address] 85544- 8192 Feb, Obese E66.9 ; 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 ; Shortness of breath R06.02 ; Palpitations R00.2 ; Bipolar disorder with severe depression F31.4 and 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 E40 [place] [address] [place] [address] 33962- 0798 Feb, Bipolar disorder with severe depression F31.4 [place] [id number] [place] [address] 75415- 8561 Feb, Injury of left shoulder and upper arm, initial encounter S49.92XA [facility] [id number] [place] [address] 34612- 7069 January, [facility] [id number] [place] [address] 61760- 8358 Dec, Bipolar disorder with severe depression F31.4 [place] [id number] [place] [address] 67306- 6367 Dec, Obese E66.9 ; 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 ; Sleep apnea G47.30 ; Anxiety about health F41.8 and Bipolar disorder with severe depression F31.4 [place] [id number] [place] [address] 59606- 5163 Dec, Bipolar disorder with severe depression F31.4 [place] [id number] [place] [address] 79906- 9503 Dec, Bipolar disorder with severe depression F31.4 and 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 Z79.899 [place] [id number] [place] [address] 82390- 7026 Nov, [place] [id number] [place] [address] 64922- 2915 Nov, [place] [id number] [place] [address] 12377- 6139 Nov, [facility] [id number] [place] [address] 15755- 3840 Nov, [facility] [id number] [place] [address] 80248- 5241 Nov, Bipolar disorder with severe depression F31.4 [facility] [id number] [place] [address] 98925- 1857 Nov, Bipolar disorder with severe depression F31.4 [facility] [id number] [place] [address] 76455- 7079 16 Nov, 2015 Anxiety about health F41.8 ; Obese E66.9 ; 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 ; Bipolar disorder with severe depression F31.4 and Family history of obesity Z83.49 [place] [id number] [place] [address] 78599- 6449 14 Nov, 2015 [place] [address] 46712- 1024 Nov, Obese E66.9 ; 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 ; Cellulitis L03.90 ; Palpitations R00.2 ; Sleep apnea G47.30 and Shortness of breath R06.02 [place] [address] 91739- 2569 Sep, UTI (urinary tract infection) N39.0 and Bronchitis J40 [place] [address] 33449- 2472 Sep, [place] [address] 07683- 8013 Mar, Left carpal tunnel syndrome 354.0 [place] [address] 74940- 7988 24 Feb, 2015 Cellulitis 682.9 and Ankle edema 782.3 [place] [id number] [place] [address] 01570- 0487 Feb, [place] [address] 44763- 0953 January, Carpal tunnel syndrome on left 354.0 [place] [address] 70865- 0441 January, Shoulder pain, left 719.41 [place] [address] 33322- 2793 January, [place] [address] 16447- 5376 Dec, [facility] [place] [facility] [address] [id number] [place] [address]- 7739 Dec, [facility] [place] [facility] [address] [id number] [place] [address]- 3271 Oct, [facility] [place] [facility] [address] [id number] [place] [address]- 2072 Oct, [facility] [place] [facility] [address] [id number] [place] [address]- 3279 Oct, [facility] [place] [facility] [address] [id number] [place] [address]- 6392 Oct, [facility] [place] [facility] [address] [id number] [place] [address]- 8868 Sep, [facility] [place] [facility] [address] [id number] [place] [address]- 7653 Sep, [facility] [place] [facility] [address] [id number] [place] [address]- 8328 Aug, [facility] [place] [facility] [address] [id number] [place] [address]- 2544 Aug, [facility] [place] [facility] [address] [id number] [place] [address]- 9407 Jun, [facility] [place] [facility] [address] [id number] [place] [address]- 8280 Jun, [facility] [place] [facility] [address] [id number] [address]- 2198 May, [facility] [place] [facility] [address] [id number] [place] [address]- 1386 May, [facility] [place] [facility] [address] [id number] [place] [address]- 6488 May, [facility] [place] [facility] [address] [id number] [place] [address]- 1375 May, [facility] [place] [facility] [address] [id number] [place] [address]- 6586 05 May, 2014 [facility] [place] [facility] [address] [id number] [place] [address]- 8412 May, [facility] [place] [facility] [address] [id number] [place] [address]- 2297 Apr, [facility] [place] [facility] [address] [id number] [place] [address]- 7791 Apr, [facility] [place] [facility] [address] [id number] [place] [address]- 4983 Apr, [facility] [place] [facility] [address] [id number] [place] [address]- 0591 Apr, [facility] [place] [facility] [address] [id number] [place] [address]- 3130 Apr, [facility] [place] [facility] [address] [id number] [place] [address]- 0695 Apr, [facility] [place] [facility] [address] [id number] [place] [address]- 9355 Apr, [facility] [place] [facility] [address] [id number] [place] [address]- 3269 Mar, [facility] [place] [facility] [address] [id number] [place] [address]- 7904 Mar, [facility] [place] [facility] [address] [id number] [place] [address]- 5253 Mar, [facility] [place] [facility] [address] [id number] [place] [address]- 6139 Mar, [facility] [place] [facility] [address] [id number] [place] [address]- 9795 Mar, [facility] [place] [facility] [address] [id number] [place] [address]- 4631 Mar, [facility] [place] [facility] [address] [id number] [place] [address]- 4592 Feb, [facility] [place] [facility] [address] [id number] [place] [address]- 7234 Feb, [facility] [place] [facility] [address] [id number] [place] [address]- 0624 Feb, [facility] [place] [facility] [address] [id number] [place] [address]- 3405 Feb, [facility] [place] [facility] [address] [id number] [place] [address]- 9009 January, [facility] [place] [facility] [address] [id number] [place] [address]- 7208 January, [facility] [place] [facility] [address] [id number] [place] [address]- 0732 January, [facility] [place] [facility] [address] [id number] [place] [address]- 2605 January, [facility] [place] [facility] [address] [id number] [place] [address]- 2978 January, [facility] [place] [facility] [address] [id number] [place] [address]- 7212 January, [facility] [place] [facility] [address] [id number] [place] [address]- 9777 January, [facility] [place] [facility] [address] [id number] [place] [address]- 3672 January, [facility] [place] [facility] [address] [id number] [place] [address]- 9408 January, [facility] [place] [facility] [address] [id number] [place] [address]- 2974 January, [facility] [place] [facility] [address] [id number] [place] [address]- 8217 January, [facility] [place] [facility] [address] [id number] [place] [address]- 7298 Dec, [facility] [place] [facility] [address] [id number] [place] [address]- 3800 Dec, [facility] [place] [facility] [address] [id number] [place] [address]- 5449 Dec, [facility] [place] [facility] [address] [id number] [place] 3713 Dec, [facility] [place] [facility] [address] [id number] [place] [address]- 9330 Nov, [facility] [place] [facility] [address] [id number] [place] [address]- 7485 Nov, [facility] [place] [facility] [address] [id number] [place] [address]- 9535 Oct, [facility] [place] [facility] [address] [id number] [place] [address]- 6917 Oct, [facility] [place] [facility] [address] [id number] [place] [address]- 0842 Oct, [facility] [place] [facility] [address] [id number] [place] [address]- 9729 Oct, [facility] [place] [facility] [address] [id number] [place] [address]- 8492 Sep, [facility] [place] [facility] [address] [id number] [place] [address]- 9144 Sep, [facility] [place] [facility] [address] [id number] [place] [address]- 7769 Sep, [facility] [place] [facility] [address] [id number] [place] [address]- 8186 Sep, [facility] [place] [facility] [address] [id number] [place] [address]- 6013 Sep, [facility] [place] [facility] [address] [id number] [place] [address]- 4878 Sep, [facility] [place] [facility] [address] [id number] [place] [address]- 2324 Aug, [facility] [place] [facility] [address] [id number] [place] [address]- 7580 24 Aug, 2013 [facility] [address] [id number] [place] 5589 Aug, [facility] [place] [facility] [address] [id number] [place] 4886 Aug, [facility] [address] [id number] [place] [address]- 7071 Aug, [facility] [place] [facility] [address] [id number] [place] [address]- 8687 Aug, [facility] [address] [id number] [place] [address]- 8821 Aug, [facility] [place] [facility] [address] [id number] [place] [address]- 0950 Aug, [facility] [place] [facility] [address] [id number] [place] [address]- 6432 Aug, [facility] [address] [id number] [place] [address]- 7372 Aug, [facility] [place] [facility] [address] [id number] [place] [address]- 8104 Jul, [facility] [address] [id number] [place] [address]- 5196 15 Jul, 2013 [facility] [place] [facility] [address] [id number] [place] [address]- 2468 Jul, [facility] [place] [facility] [address] [id number] [place] [address]- 3930 Jul, [facility] [place] [facility] [address] [id number] [place] [address]- 8681 Jun, [facility] [place] [facility] [address] [id number] [place] [address]- 5587 Jun, [facility] [place] [facility] [address] [id number] [place] [address]- 0148 Jun, [facility] [place] [facility] [address] [id number] [place] [address]- 3898 Jun, [facility] [place] [facility] [address] [id number] [place] [address]- 8949 Jun, [facility] [place] [facility] [address] [id number] [place] [address]- 6743 May, [facility] [place] [facility] [address] [id number] [place] [address]- 1672 May, [facility] [place] [facility] [address] [id number] [place] [address]- 6680 Apr, [facility] [place] [facility] [address] [id number] [place] [address]- 3886 Mar, [facility] [place] [facility] [address] [id number] [place] [address]- 3603 Mar, [facility] [place] [facility] [address] [id number] [place] [address]- 0958 Mar, [facility] [place] [facility] [address] [id number] [place] [address]- 4618 Mar, [facility] [place] [facility] [address] [id number] [address]- 8277 Mar, [facility] [place] [facility] [address] [id number] [place] [address] Mar, [facility] [place] [facility] [address] [id number] [address] Feb, [facility] [place] [facility] [address] [id number] [place] [address] Feb, [facility] [place] [facility] [address] [id number] [address] 16 Feb, 2013 [facility] [place] [facility] [address] [id number] [place] [address] 15 Feb, 2013 [facility] [place] [facility] [address] [id number] [place] [address] 14 Feb, 2013 [facility] [address] [id number] [place] [address] 13 Feb, 2013 [facility] [address] [id number] [place] [address] 11 Feb, 2013 [facility] [address] [id number] [place] [address] January, [facility] [address] [id number] [place] [address] January, [facility] [address] [id number] [place] [address] Nov, [facility] [address] [id number] [place] [address] Nov, [facility] [address] [id number] [place] [address] Nov, [facility] [address] [id number] [place] [address] Nov, [facility] [address] [id number] [place] [address] Oct, [facility] [address] [id number] [place] [address]15 Oct, [facility] [address] [id number] [place] [address] Oct, [facility] [address] [id number] [place] [address] Sep, [facility] [place] [facility] [address] [id number] [place] [address] Sep, [facility] [place] [facility] [address] [id number] [place] [address] 15 Sep, 2012 [facility] [place] [facility] [address] [id number] [place] [address] Sep, [facility] [place] [facility] [address] [id number] [place] [address] Aug, [facility] [place] [facility] [address] [id number] [place] [address] Aug, [facility] [place] [facility] [address] [id number] [place] [address] Jul, [facility] [place] [facility] [address] [id number] [place] [address], [place] [address] Jul, [facility] [place] [facility] [address] [id number] [place] [address] Jun, [facility] [place] [facility] [address] [id number] [place] [address] Jun, [facility] [place] [facility] [address] [id number] [place] [address] Jun, [facility] [place] [facility] [address] [id number] [place] [address] Jun, [facility] [place] [facility] [address] [id number] [place] [address] Jun, [facility] [place] [facility] [address] [id number] [place] [address] Jun, [facility] [place] [facility] [address] [id number] [place] [address] Jun, [facility] [place] [facility] [address] [id number], [place] [address] Jun, [facility] [place] [facility] [address] [id number] [place] [address] Jun, [facility] [place] [facility] [address] [id number] [place] [address] Jun, [facility] [place] [facility] [address] [id number], [place] [address] Jun, [facility] [place] [facility] [address] [id number], [place] [address] Jun, [facility] [place] [facility] [address] [id number] [place] [address] Jun, [facility] [place] [facility] [address] [id number] [place] [address] Jun, [facility] [place] [facility] [address] [id number] [place] [address] Jun, [facility] [place] [facility] [address] [id number] [place] [address] Jun, [facility] [place] [facility] [address] [id number] [place] [address] 29 May, 2012 [facility] [place] [facility] [address] [id number] [place] [address] 26 May, 2012 [facility] [place] [facility] [address] [id number] [place] [address] 25 May, 2012 [facility] [place] [facility] [address] [id number] [place] [address] 24 May, 2012 [facility] [place] [facility] [address] [id number] [place] [address] May, [facility] [place] [facility] [address] [id number] [place] [address] Mar, [facility] [place] [facility] [address] [id number] [place] [address] Mar, [facility] [place] [facility] [address] [id number] [place] [address] Mar, [facility] [place] [facility] [address] [id number] [place] [address] Mar, [facility] [place] [facility] [address] [id number] [place] [address] Mar, [facility] [place] [facility] [address] [id number] [place] [address] Mar, [facility] [place] [facility] [address] [id number] [place] [address] Feb, [facility] [address] [id number] [place] [address] Feb, [facility] [place] [facility] [address] [id number] [place] [address] Feb, [facility] [address] [id number] [place] [address] Feb, [facility] [address] [id number] [place] [address] Feb, [facility] [address] [id number] [place] [address] January, [facility] [address] [id number] [place] [address] Dec, [facility] [address] [id number] [place] [address] Dec, [facility] [address] [id number] [place] [address] Dec, [facility] [address] [id number] [place] [address] Dec, [facility] [address] [id number] [place] [address] Dec, [facility] [address] [id number] [place] [address] Nov, [facility] [address] [id number] [place] [address] Oct, [facility] [place] [facility] [address] [id number] [place] [address] Sep, [facility] [address] [id number] [place] [address] Aug, [facility] [address] [id number] [place] [address] Jul, [facility] [address] [facility] [id number] [address] Jul, [facility] [address] [id number] [address] Jul, [facility] [address] [facility] [id number] [address] Apr, [facility] [address] [facility] [id number] [address] Apr, [facility] [address] [facility] [id number] [address] Apr, [facility] [address] [facility] [id number] [address] January, IMMUNIZATIONS No Known Immunizations SOCIAL HISTORY Never Assessed REASON FOR VISIT Cpap machine PLAN OF CARE VITAL SIGNS MEDICATIONS Unknown [...] Hospitalization History Celluliti [facility] 02/08/17 Hospitalization History Cellulitis-[facility] 04/22/17 Hospitalization History cellulitis-[facility] December 2017
--- OUTSIDE RECORDS SUMMARY | 2018-10-07 16:00 | XMS REPORT ---
Author Author CAROLYNE STARR [facility] Address [address] [place] [address] Care Team Providers Care Associate Professor Of Literacy Name Role Phone CAROLYNE STARR Unavailable PROBLEMS Type Condition ICD9-CM Code GGF52-LI Code Onset Dates Condition Status SNOMED Code Problem Mild intermittent asthma without complication J45.20 Active 392360459 Problem Venous insufficiency I87.2 Active 38126424 Problem Morbid obesity E66.01 Active 913615261 Problem BMI 50.0-59.9, adult Z68.43 Active 572419724 Problem Bipolar affective disorder, currently depressed, mild F31.31 Active 358348893 Problem Methamphetamine use disorder, severe, 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 Active 69841540 Problem Cervical disc disease M50.90 Active 483041720 Problem Alcohol use disorder, mild, abuse F10.10 Active 52750510 Problem Cocaine use disorder, severe, 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 Active 34990542 Problem Bipolar disorder with severe depression F31.4 Active 830726780 Problem Pain in left shoulder M25.512 Active 46140400 Problem 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 146643354 Problem Sleep apnea G47.30 Active 67607786 Problem Cervical radiculopathy M54.12 Active 35331986 ALLERGIES No Known Allergies ENCOUNTERS Encounter Location Date Diagnosis [facility] [id number] [address] Mar, [facility] [address], [place] [address] Mar, [facility] [address], [place] [address] Mar, Cellulitis of left lower limb L03.116 ; BMI 50.0-59.9, adult Z68.43 and Acute nasopharyngitis J00 [facility] [id number] [address] 39387- 0552 Feb, 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 ; Venous insufficiency I87.2 and BMI 50.0-59.9, adult Z68.43 [facility] [id number] [place] [address] 68813- 8977 Feb, Cellulitis of left lower extremity L03.116 and BMI 50.0-59.9 , adult Z68.43 [facility] [id number] [address] 50450- 0433 Feb, [facility] [id number] [address] 85378- 0852 January, [facility] [id number] [place] [address] 65628- 5529 January, Medicare annual wellness visit, initial Z00.00 ; Morbid obesity E66.01 ; Mild intermittent asthma without complication J45.20 ; Bipolar disorder with severe depression F31.4 ; 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 ; Venous insufficiency I87.2 and Encounter for immunization Z23 [facility] [facility] [id number] [address] 54852- 2469 January, [facility] [address] 80422- 5222 January, Cellulitis of left lower extremity L03.116 and BMI 50.0-59.9 , adult Z68.43 [facility] [facility] [id number] [place] [address] 97140- 3247 Dec, Non-pressure chronic ulcer of left calf, 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 ; History of cellulitis Z87.2 and BMI 50.0-59.9, adult Z68.43 [facility] [id number] [place] [address] 85705 -0919 Dec, Cloudy urine R82.90 ; Cellulitis of lower extremity, unspecified laterality L03.119 and BMI 50.0-59.9, adult Z68.43 [place] [id number] [place] [address] 80664- 1423 13 Nov, 2017 Sleep apnea G47.30 [place] [address] 34668- 5632 08 Nov, 2017 Bipolar affective disorder, currently depressed, mild F31.31 ; Methamphetamine use disorder, severe, 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 ; Cocaine use disorder, severe, 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 ; Alcohol use disorder, mild, abuse F10.10 and BMI 50.0-59.9, adult Z68.43 [address] [address] 96592- 4450 15 Oct, 2017 BMI 50.0-59.9, adult Z68.43 ; Bipolar affective disorder, currently depressed, mild F31.31 ; Methamphetamine use disorder, severe, 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 ; Cocaine use disorder, severe, 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 and Alcohol use disorder, mild, abuse F10.10 [place] [address] 79651- 6550 14 Oct, 2017 [place] [address] 35761- 1425 01 Oct, 2017 BMI 50.0-59.9, adult Z68.43 ; 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 and Morbid obesity E66.01 [facility] [id number] [place] [address] 76943 -8428 Sep, Acute suppurative otitis media of right ear without spontaneous rupture of tympanic membrane, recurrence not specified H66.001 and BMI 60.0-69.9, adult Z68.44 [address] [address] 30550- 2959 Sep, [place] [address] 23939- 6088 Aug, Cervical disc disease M50.[address] 77486- 8633 Aug, [facility] [id number] [place] [address] 79529- 5768 Aug, Mild intermittent asthma without complication J45.20 ; Cervical radiculopathy M54.12 ; Venous insufficiency I87.2 ; Morbid obesity E66.01 and BMI 50.0-59.9, adult Z68.43 [place] [id number] [place] [address] 28255- 8560 Jun, [facility] [id number] [place] [address] 21836- 7867 May, [facility] [id number] [place] [address] 15566- 2859 Apr, [facility] [id number] [place] [address] 10904- 9356 Apr, 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 [facility] [address] [id number] Apr, [place] [id number] [place] [address] 79931- 4673 Apr, 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 [facility] [id number] [place] [address] 76257- 3721 Apr, Cellulitis of left lower extremity L03.116 ; Localized edema R60.0 ; 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 and Bipolar disorder with severe depression F31.4 [facility] [id number] [place] [address] 30896- 0453 Apr, Cellulitis of unspecified part of limb L03.119 and 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 [facility] [id number] [place] [address] 06458- 4024 Mar, [facility] [id number] [place] [address] 03880 -3513 Mar, Cellulitis of left lower limb L03.116 [facility] [id number] [place] [address] 25610- 3369 Mar, 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 and Cellulitis L03.90 [id number] [address] 18651- 1110 Mar, Bronchitis J40 and Cellulitis L03.90 [place] [id number] [address] 12425- 9702 January, [place] [address] 41048- 1424 January, [place] [address] 17327- 2439 Nov, 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 ; Cellulitis L03.90 ; Obese E66.9 ; Pain in left shoulder M25.512 ; Localized edema R60.0 ; Sleep apnea G47.30 ; Anxiety about health F41.8 and Bipolar disorder with severe depression F31.4 [id number] [place] [address] 74218- 6372 Aug, Obese E66.9 ; 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 ; Sleep apnea G47.30 ; Cellulitis L03.90 ; Cellulitis of unspecified part of limb L03.119 ; Intractable tension-type headache, unspecified chronicity pattern G44.201 ; Concussion, without loss of consciousness, subsequent encounter S06.0X0D and Localized edema R60.0 [place] [id number] [place] [address] 31912- 1581 Jun, [id number] [place] [address] 13292- 3235 Jun, 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 ; Other chronic pain G89.29 ; Cellulitis of unspecified part of limb L03.119 and Cutaneous abscess of limb, unspecified L02.419 [place] [id number] [place] [address] 70351- 6703 Jun, [place] [address] 93192- 3432 May, [place] [address] [place] [address] 75280- 7919 May, [place] [id number] [place] [address] 34040- 9231 Apr, Impingement syndrome, shoulder, left M75.42 and SLAP lesion of left shoulder S43.432A [place] [id number] [place] [address] 18224- 9450 Apr, [place] [id number] [place] [address] 83968- 1658 Apr, [place] [id number] [place] [address] 07147- 2314 Apr, [place] [id number] [place] [address] 59998- 9859 Apr, Cellulitis L03.90 ; Obese E66.9 ; Pain in left shoulder M25.512 and Edema, unspecified type R60.9 [place] [id number] [place] [address] 44409- 9706 Mar, Obese E66.9 ; Pain in left shoulder M25.512 and Other chronic pain G89.29 [place] [id number] [place] [address] 95278- 1913 Feb, Anxiety about health F41.8 [place] [id number] [place] [address] 56293- 7634 Feb, Obese E66.9 ; 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 ; Shortness of breath R06.02 ; Palpitations R00.2 ; Bipolar disorder with severe depression F31.4 and 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 E40 [address] [address] [place] [address] 56632- 2868 09 Feb, 2016 Bipolar disorder with severe depression F31.4 [place] [id number] [place] [address] 71524- 3979 Feb, Injury of left shoulder and upper arm, initial encounter S49.92XA [place] [id number] [place] [address] 79188- 6226 January, [facility] [id number] [place] [address] 26761- 6241 Dec, Bipolar disorder with severe depression F31.4 [place] [id number] [place] [address] 45512- 8621 Dec, Obese E66.9 ; 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 ; Sleep apnea G47.30 ; Anxiety about health F41.8 and Bipolar disorder with severe depression F31.4 [place] [id number] [place] [address] 18724- 6167 Dec, Bipolar disorder with severe depression F31.4 [place] [id number] [place] [address] 68369- 5690 Dec, Bipolar disorder with severe depression F31.4 [place] 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 Z79.899 [address] [place] [id number] [place] [address] 81039- 0869 Nov, [place] [id number] [place] [address] 43480- 7044 Nov, [place] [id number] [place] [address] 73466- 4479 Nov, [facility] [id number] [place] [address] 47930- 3369 Nov, [facility] [id number] [place] [address] 22213- 6891 Nov, Bipolar disorder with severe depression F31.4 [facility] [id number] [place] [address] 26845- 2248 Nov, Bipolar disorder with severe depression F31.4 [facility] [id number] [place] [address] 34904- 2430 16 Nov, 2015 Anxiety about health F41.8 ; Obese E66.9 ; 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 ; Bipolar disorder with severe depression F31.4 and Family history of obesity Z83.49 [place] [id number] [place] [address] 85061- 0207 14 Nov, 2015 [place] [address] 28411- 6911 Nov, Obese E66.9 ; 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 ; Cellulitis L03.90 ; Palpitations R00.2 ; Sleep apnea G47.30 and Shortness of breath R06.02 [place] [address] 48557- 9718 Sep, UTI (urinary tract infection) N39.0 and Bronchitis J40 [place] [address] 28505- 0253 Sep, [place] [address] 40693- 2173 Mar, Left carpal tunnel syndrome 354.0 [place] [address] 19449- 7988 Feb, Cellulitis 682.9 and Ankle edema 782.3 [place] [id number] [place] [address] 54753- 9018 Feb, [place] [address] 72916- 7962 January, Carpal tunnel syndrome on left 354.0 [place] [address] 97158- 9696 January, Shoulder pain, left 719.41 [place] [address] 56388- 4089 January, [place] [address] 91635- 7365 Dec, [facility] [place] [facility] [address] [id number] [place] [address]- 2123 Dec, [facility] [place] [facility] [address] [id number] [place] [address]- 3617 Oct, [facility] [place] [facility] [address] [id number] [place] [address]- 5666 Oct, [facility] [place] [facility] [address] [id number] [place] [address]- 5675 Oct, [facility] [place] [facility] [address] [id number] [place] [address]- 5629 Oct, [facility] [place] [facility] [address] [id number] [place] [address]- 1362 Sep, [facility] [place] [facility] [address] [id number] [place] [address]- 4998 Sep, [facility] [place] [facility] [address] [id number], [place] [address]- 2944 Aug, [facility] [place] [facility] [address] [id number] [place] [address]- 1156 Aug, [facility] [place] [facility] [address] [facility] [id number], [place] [address]- 6140 Jun, [facility] [place] [facility] [address] [id number], [place] [address]- 0881 Jun, [facility] [place] [facility] [address] [id number], [place] [address]- 7596 May, [facility] [place] [facility] [address] [id number] [place] [address]- 4064 May, [facility] [place] [facility] [address] [id number], [place] [address]- 6955 May, [facility] [place] [facility] [address] [id number] [place] [address]- 6881 May, [facility] [place] [facility] [address] [id number] [place] [address]- 9802 05 May, 2014 [facility] [place] [facility] [address] [id number] [place] [address]- 7889 May, [facility] [place] [facility] [address] [id number] [place] [address]- 2711 Apr, [facility] [place] [facility] [address] [id number] [place] [address]- 4270 Apr, [facility] [place] [facility] [address] [id number] [place] [address]- 0998 Apr, [facility] [place] [facility] [address] [id number] [place] [address]- 8524 Apr, [facility] [place] [facility] [address] [id number] [place] [address]- 8420 Apr, [facility] [place] [facility] [address] [id number] [place] [address]- 4525 Apr, [facility] [place] [facility] [address] [id number] [place] [address]- 5165 Apr, [facility] [place] [facility] [address] [id number] [place] [address]- 7616 Mar, [facility] [place] [facility] [address] [id number] [place] [address]- 0170 Mar, [facility] [place] [facility] [address] [id number] [place] [address]- 8778 Mar, [facility] [place] [facility] [address] [id number] [place] [address]- 1115 Mar, [facility] [place] [facility] [address] [id number] [place] [address]- 3554 Mar, [facility] [place] [facility] [address] [id number] [place] [address]- 4773 Mar, [facility] [place] [facility] [address] [id number] [place] [address]- 5242 Feb, [facility] [place] [facility] [address] [id number] [place] [address]- 4811 Feb, [facility] [place] [facility] [address] [id number] [place] [address]- 1238 Feb, [facility] [place] [facility] [address] [id number] [place] [address]- 0276 Feb, [facility] [place] [facility] [address] [id number] [place] [address]- 3685 January, [facility] [place] [facility] [address] [id number] [place] [address]- 4486 January, [facility] [place] [facility] [address] [id number] [place] [address]- 9316 January, [facility] [place] [facility] [address] [id number] [place] [address]- 9581 January, [facility] [place] [facility] [address] [id number] [place] [address]- 6085 January, [facility] [place] [facility] [address] [id number] [place] [address]- 1004 January, [facility] [place] [facility] [address] [id number] [place] [address]- 2760 January, [facility] [place] [facility] [address] [id number] [place] [address]- 2626 January, [facility] [place] [facility] [address] [id number] [place] [address]- 4932 January, [facility] [place] [facility] [address] [id number] [place] [address]- 6800 January, [facility] [place] [facility] [address] [id number] [place] [address]- 6132 January, [facility] [place] [facility] [address] [id number] [place] [address]- 6052 Dec, [facility] [place] [facility] [address] [id number] [place] [address]- 4758 Dec, [facility] [place] [facility] [address] [id number] [place] [address]- 9216 Dec, [facility] [place] [facility] [address] [id number] [place] 9874 Dec, [facility] [place] [facility] [address] [facility] [id number] [place] [address]- 2609 Nov, [facility] [place] [facility] [address] [id number] [place] [address]- 9545 Nov, [facility] [place] [facility] [address] [id number] [place] [address]- 3932 Oct, [facility] [place] [facility] [address] [id number] [place] [address]- 8180 Oct, [facility] [place] [facility] [address] [facility] [id number] [place] [address]- 2932 Oct, [facility] [place] [facility] [address] [id number] [place] [address]- 0283 Oct, [facility] [place] [facility] [address] [id number] [place] [address]- 4117 Sep, [facility] [place] [facility] [address] [facility] [id number] [place] [address]- 7414 Sep, [facility] [place] [facility] [address] [id number] [place] [address]- 2350 Sep, [facility] [place] [facility] [address] [id number] [place] [address]- 4272 Sep, [facility] [place] [facility] [address] [id number] [place] [address]- 5358 Sep, [facility] [place] [facility] [address] [facility] [id number] [place] [address]- 1069 Sep, [facility] [place] [facility] [address] [facility] [id number] [place] [address]- 0314 Aug, [facility] [place] [facility] [address] [id number] [place] [address]- 3472 24 Aug, 2013 [facility] [address] [id number] [place] 5911 Aug, [facility] [place] [facility] [address] [id number] [place] 7186 Aug, [facility] [place] [facility] [address] [id number] [place] [address]- 6478 Aug, [facility] [place] [facility] [address] [id number] [place] [address]- 3990 Aug, [facility] [place] [facility] [address] [id number] [place] [address]- 7584 Aug, [facility] [place] [facility] [address] [id number] [place] [address]- 3145 Aug, [facility] [place] [facility] [address] [id number] [place] [address]- 6464 Aug, [facility] [place] [facility] [address] [id number] [place] [address]- 3576 Aug, [facility] [place] [facility] [address] [id number] [place] [address]- 9804 Jul, [facility] [place] [facility] [address] [id number] [place] [address]- 3140 15 Jul, 2013 [facility] [place] [facility] [address] [id number] [place] [address]- 7769 Jul, [facility] [place] [facility] [address] [id number] [place] [address]- 2689 Jul, [facility] [place] [facility] [address] [id number] [place] [address]- 8061 Jun, [facility] [place] [facility] [address] [id number] [place] [address]- 1407 Jun, [facility] [place] [facility] [address] [id number] [place] [address]- 1077 Jun, [facility] [place] [facility] [address] [id number] [place] [address]- 5236 Jun, [facility] [place] [facility] [address] [id number] [place] [address] Jun, [facility] [place] [facility] [address] [id number] [place] [address] May, [facility] [place] [facility] [address] [id number] [place] [address] May, [facility] [place] [facility] [address] [id number] [place] [address] Apr, [facility] [place] [facility] [address] [id number] [place] [address] Mar, [facility] [place] [facility] [address] [id number] [place] [address] Mar, [facility] [place] [facility] [address] [id number] [place] [address] Mar, [facility] [place] [facility] [address] [id number] [place] [address] Mar, [facility] [place] [facility] [address] [id number] [place] [address] Mar, [facility] [place] [facility] [address] [id number], [place] [address] Mar, [facility] [place] [facility] [address] [id number], [place] [address] Feb, [facility] [place] [facility] [address] [id number] [place] [address] Feb, [facility] [place] [facility] [address] [id number], [place] [address] 16 Feb, 2013 [facility] [place] [facility] [address] [id number] [place] [address] 15 Feb, 2013 [facility] [place] [facility] [address] [id number] [place] [address] 14 Feb, 2013 [facility] [address] [id number] [place] [address] 13 Feb, 2013 [facility] [address] [id number] [place] [address] 11 Feb, 2013 [facility] [address] [id number] [place] [address]- [address] January, [facility] [address] [id number] [place] [address] January, [facility] [address] [id number] [place] [address] Nov, [facility] [address] [id number] [place] [address] Nov, [facility] [address] [id number] [place] [address] Nov, [facility] [address] [id number] [place] [address] Nov, [facility] [address] [id number] [place] [address]- [address] Oct, [facility] [address] [id number] [place] [address] Oct, [facility] [address] [id number] [place] [address] Oct, [facility] [address] [id number] [place] [address]- [address] Sep, [facility] [place] [facility] [address] [id number] [place] [address] Sep, [facility] [place] [facility] [address] [id number] [place] [address]- [address] 15 Sep, 2012 [facility] [place] [facility] [address] [id number] [place] [address]- [address] Sep, [facility] [place] [facility] [address] [id number] [place] [address] Aug, [facility] [place] [facility] [address] [id number] [place] [address] Aug, [facility] [place] [facility] [address] [id number] [place] [address] Jul, [facility] [place] [facility] [address] [id number] [place] [address] Jul, [facility] [place] [facility] [address] [id number] [place] [address] Jun, [facility] [place] [facility] [address] [id number] [place] [address] Jun, [facility] [place] [facility] [address] [id number] [place] [address] Jun, [facility] [place] [facility] [address] [id number], [place] [address] Jun, [facility] [place] [facility] [address] [id number] [place] [address] Jun, [facility] [place] [facility] [address] [id number], [place] [address] Jun, [facility] [place] [facility] [address] [facility] [id number], [place] [address] Jun, [facility] [place] [facility] [address] [id number], [place] [address] Jun, [facility] [place] [facility] [address] [id number], [place] [address] Jun, [facility] [place] [facility] [address] [id number], [place] [address] Jun, [facility] [facility] [address] [id number], [place] [address] Jun, [facility] [facility] [address] [id number], [place] [address] Jun, [facility] [place] [facility] [address] [id number] [place] [address] Jun, [facility] [place] [facility] [address] [id number] [place] [address] Jun, [facility] [place] [facility] [address] [id number] [place] [address] Jun, [facility] [place] [facility] [address] [id number] [place] [address] Jun, [facility] [place] [facility] [address] [id number] [place] [address] 29 May, 2012 [facility] [place] [facility] [address] [id number] [place] [address] 26 May, 2012 [facility] [place] [facility] [address] [id number] [place] [address] May, [facility] [place] [facility] [address] [id number] [place] [address] 24 May, 2012 [facility] [place] [facility] [address] [id number] [place] [address] May, [facility] [place] [facility] [address] [id number] [place] [address] Mar, [facility] [place] [facility] [address] [id number] [place] [address] Mar, [facility] [place] [facility] [address] [id number] [place] [address] Mar, [facility] [place] [facility] [address] [id number] [place] [address] Mar, [facility] [place] [facility] [address] [id number] [place] [address] Mar, [facility] [place] [facility] [address] [id number] [place] [address] 2019 Mar, [facility] [place] [facility] [address] [id number] [place] [address] Feb, [facility] [place] [facility] [address] [id number] [place] [address] Feb, [facility] [place] [facility] [address] [id number] [place] [address] Feb, [facility] [place] [facility] [address] [id number] [place] [address] Feb, [facility] [place] [facility] [address] [id number] [place] [address] Feb, [facility] [address] [id number] [place] [address] January, [facility] [address] [id number] [place] [address] Dec, [facility] [address] [id number] [place] [address] Dec, [facility] [address] [id number] [place] [address] Dec, [facility] [facility] [address] [id number] [place] [address] Dec, [facility] [address] [id number] [place] [address] Dec, [facility] [address] [id number] [place] [address] Nov, [facility] [address] [id number] [place] [address] Oct, [facility] [facility] [address] [id number] [place] [address] Sep, [facility] [address] [id number] [place] [address] Aug, [facility] [address] [id number] [place] [address] Jul, [facility] [address] [facility] [id number], [place] [address] Jul, [facility] [address] [facility] [id number], [place] [address] Jul, [facility] [address] [facility] [id number], [place] [address] Apr, [facility] [address] [facility] [id number][place] [address] [address] Apr, [facility] [address] [facility] [id number], [place] [address] Apr, [facility] [address] [facility] [id number], [place] [address] January, IMMUNIZATIONS No Known Immunizations SOCIAL HISTORY Never Assessed REASON FOR VISIT [facility] Activity Details Follow Up prn Reason: VITAL SIGNS Height 65 in 2018-01-13 Weight 345.8 lbs 2018-01-13 Temperature 98.1 degrees Fahrenheit 2018-01-13 Heart Rate 76 bpm 2018-01-13 Respiratory Rate 18 2018-01-13 BMI 57.54 kg/m2 2018-01-13 Blood pressure systolic 130 mmHg 2018-01-13 Blood pressure diastolic 74 mmHg 2018-01-13 MEDICATIONS Medication Instructions Dosage Frequency Start Date End Date Duration Status Topamax 50 MG Orally Twice a day 1 tablet 12h Oct, 30 days Active Sulfamylon 85 MG/GM Externally every 8 hrs 1 application to affected area 8h Active Silvadene 1 % Externally TID PRN 1 application to affected area January, Active Doxycycline 100 MG Orally 2 times a day 1 capsule on an empty stomach in the morning 12h Active RESULTS No Results PROCEDURES Procedure Date Ordered Result Body Site [facility] VISIT ESTABLISHED PATIENT January 13, 2018 INSTRUCTIONS MEDICATIONS ADMINISTERED No Known Medications [...] Hospitalization History Celluliti BLE-H 02/08/17 Hospitalization History Cellulitis-[facility] 04/22/17 Hospitalization History cellulitis-[facility] December 2017
--- OUTSIDE RECORDS SUMMARY | 2018-10-07 16:00 | XMS REPORT ---
Author Author CAROLYNE STARR [facility] Address [address] [place] [address] Care Team Providers Care Merchandise Examiner Name Role Phone CAROLYNE STARR Unavailable PROBLEMS Type Condition ICD9-CM Code HPY16-ZL Code Onset Dates Condition Status SNOMED Code Problem Mild intermittent asthma without complication J45.20 Active 595444116 Problem Venous insufficiency I87.2 Active 19504264 Problem Morbid obesity E66.01 Active 674142440 Problem BMI 50.0-59.9, adult Z68.43 Active 837191691 Problem Bipolar affective disorder, currently depressed, mild F31.31 Active 370055871 Problem Methamphetamine use disorder, severe, 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 Active 92055668 Problem Cervical disc disease M50.90 Active 060412612 Problem Alcohol use disorder, mild, abuse F10.10 Active 88078216 Problem Cocaine use disorder, severe, 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 Active 95749628 Problem Bipolar disorder with severe depression F31.4 Active 694077141 Problem Pain in left shoulder M25.512 Active 70170598 Problem 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 550784847 Problem Sleep apnea G47.30 Active 06037939 Problem Cervical radiculopathy M54.12 Active 67308158 ALLERGIES No Known Allergies ENCOUNTERS Encounter Location Date Diagnosis [facility] [id number], [place] [address] Mar, [facility] [address], [place] [address] Mar, [facility] [address], [place] [address] Mar, Cellulitis of left lower limb L03.116 ; BMI 50.0-59.9, adult Z68.43 and Acute nasopharyngitis J00 [facility] [id number] [place] [address] 18684- 7394 Feb, 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 ; Venous insufficiency I87.2 and BMI 50.0-59.9, adult Z68.43 [place] [id number] [place] [address] 89077- 6568 Feb, Cellulitis of left lower extremity L03.116 and BMI 50.0-59.9 , adult Z68.43 [place] [id number] [place] [address] 69198- 5987 Feb, [place] [id number] [place] [address] 55370- 1172 January, [place] [id number] [place] [address] 48378- 3727 January, Medicare annual wellness visit, initial Z00.00 ; Morbid obesity E66.01 ; Mild intermittent asthma without complication J45.20 ; Bipolar disorder with severe depression F31.4 ; 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 ; Venous insufficiency I87.2 and Encounter for immunization Z23 [place] [id number] [place] [address] 14248- 3160 January, [place] [address] [address]32- 0967 January, Cellulitis of left lower extremity L03.116 and BMI 50.0-59.9 , adult Z68.43 [place] [id number] [place] [address] 62092- 8558 Dec, Non-pressure chronic ulcer of left calf, 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 ; History of cellulitis Z87.2 and BMI 50.0-59.9, adult Z68.43 [facility] [id number] [place] [address] 97856 -0953 Dec, Cloudy urine R82.90 ; Cellulitis of lower extremity, unspecified laterality L03.119 and BMI 50.0-59.9, adult Z68.43 [place] [id number] [place] [address] 02206- 7425 13 Nov, 2017 Sleep apnea G47.30 [place] [address] 48080- 4069 08 Nov, 2017 Bipolar affective disorder, currently depressed, mild F31.31 ; Methamphetamine use disorder, severe, 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 ; Cocaine use disorder, severe, 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 ; Alcohol use disorder, mild, abuse F10.10 and BMI 50.0-59.9, adult Z68.43 [place] [address] 50899- 7176 15 Oct, 2017 BMI 50.0-59.9, adult Z68.43 ; Bipolar affective disorder, currently depressed, mild F31.31 ; Methamphetamine use disorder, severe, 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 ; Cocaine use disorder, severe, 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 and Alcohol use disorder, mild, abuse F10.10 [place] [address] 51318- 9440 14 Oct, 2017 [place] [address] 30791- 8653 01 Oct, 2017 BMI 50.0-59.9, adult Z68.43 ; 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 and Morbid obesity E66.01 [facility] [id number] [place] [address] 99552 -7274 Sep, Acute suppurative otitis media of right ear without spontaneous rupture of tympanic membrane, recurrence not specified H66.001 and BMI 60.0-69.9, adult Z68.44 [address] [place] [address] 78352- 6733 Sep, [place] [address] 86068- 3085 Aug, Cervical disc disease M50.[address] 09312- 0594 Aug, [facility] [id number] [place] [address] 73248- 1304 Aug, Mild intermittent asthma without complication J45.20 ; Cervical radiculopathy M54.12 ; Venous insufficiency I87.2 ; Morbid obesity E66.01 and BMI 50.0-59.9, adult Z68.43 [address] [place] [id number] [place] [address] 57574- 7328 Jun, [facility] [id number] [place] [address] 46252- 5890 May, [place] [id number] [place] [address] 25571- 1534 Apr, [place] [id number] [place] [address] 04034- 5227 Apr, 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 [place] [id number] [place] [address] 18459- 4594 Apr, Cellulitis of left lower extremity L03.116 ; Localized edema R60.0 ; 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 and Bipolar disorder with severe depression F31.4 [facility] [id number] [place] [address] 64423- 0169 Apr, Cellulitis of unspecified part of limb L03.119 and 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 [facility] [id number] [place] [address] 48301- 1009 Mar, [facility] [id number] [place] [address] 61621 -8868 Mar, Cellulitis of left lower limb L03.116 [facility] [id number] [place] [address] 15290- 7598 Mar, 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 and Cellulitis L03.90 [id number] [place] [address] 53699- 7499 Mar, Bronchitis J40 and Cellulitis L03.90 [place] [id number] [place] [address] 22024- 6815 January, [place] [address] 79376- 3817 January, [place] [address] 87601- 9724 Nov, 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 ; Cellulitis L03.90 ; Obese E66.9 ; Pain in left shoulder M25.512 ; Localized edema R60.0 ; Sleep apnea G47.30 ; Anxiety about health F41.8 and Bipolar disorder with severe depression F31.4 [id number] [place] [address] 37792- 9051 Aug, Obese E66.9 ; 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 ; Sleep apnea G47.30 ; Cellulitis L03.90 ; Cellulitis of unspecified part of limb L03.119 ; Intractable tension-type headache, unspecified chronicity pattern G44.201 ; Concussion, without loss of consciousness, subsequent encounter S06.0X0D and Localized edema R60.0 [place] [id number] [place] [address] 23878- 0450 Jun, [id number] [place] [address] 64986- 8528 Jun, 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 ; Other chronic pain G89.29 ; Cellulitis of unspecified part of limb L03.119 and Cutaneous abscess of limb, unspecified L02.419 [place] [id number] [place] [address] 07775- 1493 Jun, [place] [address] 93396- 2874 May, [place] [id number] [place] [address] 95522- 9838 May, [place] [id number] [place] [address] 03782- 5517 Apr, Impingement syndrome, shoulder, left M75.42 and SLAP lesion of left shoulder S43.432A [place] [id number] [place] [address] 40200- 1118 Apr, [place] [id number] [place] [address] 42983- 3899 Apr, [place] [id number] [place] [address] 77309- 8566 Apr, [place] [id number] [place] [address] 43518- 0700 Apr, Cellulitis L03.90 ; Obese E66.9 ; Pain in left shoulder M25.512 and Edema, unspecified type R60.9 [place] [id number] [place] [address] 57942- 9107 Mar, Obese E66.9 ; Pain in left shoulder M25.512 and Other chronic pain G89.29 [place] [id number] [place] [address] 22852- 2724 Feb, Anxiety about health F41.8 [place] [id number] [place] [address] 15305- 1661 Feb, Obese E66.9 ; 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 ; Shortness of breath R06.02 ; Palpitations R00.2 ; Bipolar disorder with severe depression F31.4 and 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 E40 [address] [place] [id number] [place] [address] 73794- 0526 09 Feb, 2016 Bipolar disorder with severe depression F31.4 [place] [id number] [place] [address] 94278- 0242 Feb, Injury of left shoulder and upper arm, initial encounter S49.92XA [place] [id number] [place] [address] 32954- 0820 January, [facility] [id number] [place] [address] 82643- 8598 Dec, Bipolar disorder with severe depression F31.4 [place] [id number] [place] [address] 98661- 8494 Dec, Obese E66.9 ; 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 ; Sleep apnea G47.30 ; Anxiety about health F41.8 and Bipolar disorder with severe depression F31.4 [place] [id number] [place] [address] 14850- 7956 Dec, Bipolar disorder with severe depression F31.4 [place] [id number] [place] [address] 21974- 9701 Dec, Bipolar disorder with severe depression F31.4 and Other intermediate (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 Z79.899 [place] [id number] [place] [address] 33700- 7069 Nov, [place] [id number] [place] [address] 28708- 2549 Nov, [place] [id number] [place] [address] 93110- 3090 Nov, [facility] [id number] [place] [address] 74368- 2316 Nov, [facility] [id number] [place] [address] 63247- 2549 Nov, Bipolar disorder with severe depression F31.4 [facility] [id number] [place] [address] 94535- 5270 Nov, Bipolar disorder with severe depression F31.4 [facility] [id number] [place] [address] 18061- 1215 16 Nov, 2015 Anxiety about health F41.8 ; Obese E66.9 ; 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 ; Bipolar disorder with severe depression F31.4 and Family history of obesity Z83.49 [address] [place] [id number] [place] [address] 42258- 6712 14 Nov, 2015 [place] [address] 53165- 5492 Nov, Obese E66.9 ; 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 ; Cellulitis L03.90 ; Palpitations R00.2 ; Sleep apnea G47.30 and Shortness of breath R06.02 [address] [place] [address] 32973- 3472 Sep, UTI (urinary tract infection) N39.0 and Bronchitis J40 [place] [address] 21376- 7870 Sep, [place] [address] 35210- 3341 Mar, Left carpal tunnel syndrome 354.0 [place] [address] 51676- 3052 Feb, Cellulitis 682.9 and Ankle edema 782.3 [place] [id number] [place] [address] 47252- 8616 Feb, [place] [address] 20469- 6886 January, Carpal tunnel syndrome on left 354.0 [place] [address] 34286- 4420 January, Shoulder pain, left 719.41 [address] [place] [address] 37105- 3463 January, [place] [address] 46781- 9033 Dec, [facility] [place] [facility] [address] [id number] [place] [address]- 1997 Dec, [facility] [place] [facility] [address] [id number] [place] [address]- 8329 Oct, [facility] [place] [facility] [address] [id number] [place] [address]- 8621 Oct, [facility] [place] [facility] [address] [id number] [place] [address]- 3778 Oct, [facility] [place] [facility] [address] [id number] [place] [address]- 1197 Oct, [facility] [place] [facility] [address] [id number] [place] [address]- 4781 Sep, [facility] [place] [facility] [address] [id number] [place] [address]- 3806 Sep, [facility] [place] [facility] [address] [id number] [address]- 9713 Aug, [facility] [place] [facility] [address] [id number] [place] [address]- 5771 Aug, [facility] [place] [facility] [address] [facility] [id number], [place] [address]- 7689 Jun, [facility] [place] [facility] [address] [id number], [place] [address]- 1070 Jun, [facility] [place] [facility] [address] [id number], [place] [address]- 9740 May, [facility] [place] [facility] [address] [id number] [place] [address]- 4566 May, [facility] [place] [facility] [address] [id number], [place] [address]- 7868 May, [facility] [place] [facility] [address] [id number] [place] [address]- 6335 May, [facility] [place] [facility] [address] [id number] [place] [address]- 4738 05 May, 2014 [facility] [place] [facility] [address] [id number] [place] [address]- 7966 May, [facility] [place] [facility] [address] [id number] [place] [address]- 3968 Apr, [facility] [place] [facility] [address] [id number] [place] [address]- 1228 Apr, [facility] [place] [facility] [address] [id number] [place] [address]- 2748 Apr, [facility] [place] [facility] [address] [id number] [place] [address]- 5394 Apr, [facility] [place] [facility] [address] [id number] [place] [address]- 3829 Apr, [facility] [place] [facility] [address] [id number] [place] [address]- 1129 Apr, [facility] [place] [facility] [address] [id number] [place] [address]- 0110 Apr, [facility] [place] [facility] [address] [id number] [place] [address]- 5500 Mar, [facility] [place] [facility] [address] [id number] [place] [address]- 3823 Mar, [facility] [place] [facility] [address] [id number] [place] [address]- 5412 Mar, [facility] [place] [facility] [address] [id number] [place] [address]- 2625 Mar, [facility] [place] [facility] [address] [id number] [place] [address]- 1095 Mar, [facility] [place] [facility] [address] [id number] [place] [address]- 9844 Mar, [facility] [place] [facility] [address] [id number] [place] [address]- 1959 Feb, [facility] [place] [facility] [address] [id number] [place] [address]- 2468 Feb, [facility] [place] [facility] [address] [id number] [place] [address]- 8982 Feb, [facility] [place] [facility] [address] [id number] [place] [address]- 9271 Feb, [facility] [place] [facility] [address] [id number] [place] [address]- 8544 January, [facility] [place] [facility] [address] [id number] [place] [address]- 0801 January, [facility] [place] [facility] [address] [id number] [place] [address]- 9413 January, [facility] [place] [facility] [address] [id number] [place] [address]- 2089 January, [facility] [place] [facility] [address] [id number] [place] [address]- 5806 January, [facility] [place] [facility] [address] [id number] [place] [address]- 0727 January, [facility] [place] [facility] [address] [id number] [place] [address]- 7800 January, [facility] [place] [facility] [address] [id number] [place] [address]- 3877 January, [facility] [place] [facility] [address] [id number] [place] [address]- 1516 January, [facility] [place] [facility] [address] [id number] [place] [address]- 3665 January, [facility] [place] [facility] [address] [id number] [place] [address]- 4819 January, [facility] [place] [facility] [address] [id number] [place] [address]- 9952 Dec, [facility] [place] [facility] [address] [id number] [place] [address]- 6612 Dec, [facility] [place] [facility] [address] [id number] [place] [address]- 5385 Dec, [facility] [place] [facility] [address] [id number] [place] 0370 Dec, [facility] [place] [facility] [address] [facility] [id number] [place] [address]- 1752 Nov, [facility] [place] [facility] [address] [id number] [place] [address]- 2260 Nov, [facility] [place] [facility] [address] [id number] [place] [address]- 1083 Oct, [facility] [place] [facility] [address] [id number] [place] [address]- 9678 Oct, [facility] [place] [facility] [address] [facility] [id number] [place] [address]- 5517 Oct, [facility] [place] [facility] [address] [id number] [place] [address]- 4246 Oct, [facility] [place] [facility] [address] [id number] [place] [address]- 4726 Sep, [facility] [place] [facility] [address] [facility] [id number] [place] [address]- 9685 Sep, [facility] [place] [facility] [address] [id number] [place] [address]- 1316 Sep, [facility] [place] [facility] [address] [id number] [place] [address]- 7619 Sep, [facility] [place] [facility] [address] [id number] [place] [address]- 1805 Sep, [facility] [place] [facility] [address] [facility] [id number] [place] [address]- 0952 Sep, [facility] [place] [facility] [address] [facility] [id number] [place] [address]- 5971 Aug, [facility] [place] [facility] [address] [id number] [place] [address]- 2562 24 Aug, 2013 [facility] [address] [id number] [place] 7379 Aug, [facility] [place] [facility] [address] [id number] [place]01 Aug, [facility] [place] [facility] [address] [id number] [place] [address]- 1269 Aug, [facility] [place] [facility] [address] [id number] [place] [address]- 7472 Aug, [facility] [place] [facility] [address] [id number] [place] [address]- 8093 Aug, [facility] [place] [facility] [address] [id number] [place] [address]- 8650 Aug, [facility] [place] [facility] [address] [id number] [place] [address]- 5183 Aug, [facility] [place] [facility] [address] [id number] [place] [address]- 4176 Aug, [facility] [place] [facility] [address] [id number] [place] [address]- 3465 Jul, [facility] [place] [facility] [address] [id number] [place] [address]- 6838 15 Jul, 2013 [facility] [place] [facility] [address] [id number] [place] [address]- 9715 Jul, [facility] [place] [facility] [address] [id number] [place] [address]- 7344 Jul, [facility] [place] [facility] [address] [id number] [place] [address]- 9868 Jun, [facility] [place] [facility] [address] [id number] [place] [address]- 4692 Jun, [facility] [place] [facility] [address] [id number] [place] [address]- 4731 Jun, [facility] [place] [facility] [address] [id number] [place] [address]- 6495 Jun, [facility] [place] [facility] [address] [id number] [place] [address]- 1936 Jun, [facility] [place] [facility] [address] [id number] [place] [address]- 9612 May, [facility] [place] [facility] [address] [id number] [place] [address]- 0835 May, [facility] [place] [facility] [address] [id number] [place] [address]- 8452 Apr, [facility] [place] [facility] [address] [id number] [place] [address] Mar, [facility] [place] [facility] [address] [id number] [place] [address] Mar, [facility] [place] [facility] [address] [id number] [place] [address] Mar, [facility] [place] [facility] [address] [id number] [place] [address] Mar, [facility] [place] [facility] [address] [id number] [place] [address] Mar, [facility] [place] [facility] [address] [id number], [place] [address] Mar, [facility] [place] [facility] [address] [id number], [place] [address] Feb, [facility] [place] [facility] [address] [id number] [place] [address] Feb, [facility] [place] [facility] [address] [id number], [place] [address] 16 Feb, 2013 [facility] [place] [facility] [address] [id number] [place] [address] 15 Feb, 2013 [facility] [place] [facility] [address] [id number] [place] [address] 14 Feb, 2013 [facility] [address] [id number] [place] [address] 13 Feb, 2013 [facility] [address] [id number] [place] [address] 11 Feb, 2013 [facility] [address] [id number] [place] [address] January, [facility] [address] [id number] [place] [address] January, [facility] [address] [id number] [place] [address] Nov, [facility] [address] [id number] [place] [address] Nov, [facility] [address] [id number] [place] [address] Nov, [facility] [address] [id number] [place] [address] Nov, [facility] [address] [id number] [place] [address] Oct, [facility] [address] [id number] [place] [address] Oct, [facility] [address] [id number] [place] [address] Oct, [facility] [address] [id number] [place] [address] Sep, [facility] [place] [facility] [address] [id number] [place] [address] Sep, [facility] [place] [facility] [address] [id number] [place] [address] 15 Sep, 2012 [facility] [place] [facility] [address] [id number] [place] [address] Sep, [facility] [place] [facility] [address] [id number] [place] [address] Aug, [facility] [place] [facility] [address] [id number] [place] [address] Aug, [facility] [place] [facility] [address] [id number] [place] [address] Jul, [facility] [place] [facility] [address] [id number] [place] [address] Jul, [facility] [place] [facility] [address] [id number] [place] [address] Jun, [facility] [place] [facility] [address] [id number] [place] [address] Jun, [facility] [place] [facility] [address] [id number] [place] [address] Jun, [facility] [place] [facility] [address] [id number], [place] [address] Jun, [facility] [place] [facility] [address] [id number] [place] [address] Jun, [facility] [place] [facility] [address] [id number], [place] [address] Jun, [facility] [place] [facility] [address] [facility] [id number], [place] [address] Jun, [facility] [place] [facility] [address] [id number], [place] [address] Jun, [facility] [place] [facility] [address] [id number], [place] [address] Jun, [facility] [place] [facility] [address] [id number], [place] [address] Jun, [facility] [place] [facility] [address] [id number], [place] [address] Jun, [facility] [place] [facility] [address] [id number], [place] [address] Jun, [facility] [place] [facility] [address] [id number] [place] [address] Jun, [facility] [place] [facility] [address] [id number] [place] [address] Jun, [facility] [place] [facility] [address] [id number] [place] [address] Jun, [facility] [place] [facility] [address] [id number] [place] [address] Jun, [facility] [place] [facility] [address] [id number] [place] [address] 29 May, 2012 [facility] [place] [facility] [address] [id number] [place] [address] 26 May, 2012 [facility] [place] [facility] [address] [id number] [place] [address] May, [facility] [place] [facility] [address] [id number] [place] [address] 24 May, 2012 [facility] [place] [facility] [address] [id number] [place] [address] May, [facility] [place] [facility] [address] [id number] [place] [address] Mar, [facility] [place] [facility] [address] [id number] [place] [address] Mar, [facility] [place] [facility] [address] [id number] [place] [address] Mar, [facility] [place] [facility] [address] [id number] [place] [address] Mar, [facility] [place] [facility] [address] [id number] [place] [address] Mar, [facility] [place] [facility] [address] [id number] [place] [address] Mar, [facility] [place] [facility] [address] [id number] [place] [address] Feb, [facility] [place] [facility] [address] [id number] [place] [address] Feb, [facility] [place] [facility] [address] [id number] [place] [address] Feb, [facility] [place] [facility] [address] [id number] [place] [address] Feb, [facility] [place] [facility] [address] [id number] [place] [address] Feb, [facility] [place] [facility] [address] [id number] [place] [address] January, [facility] [place] [facility] [address] [id number] [place] [address] Dec, [facility] [place] [facility] [address] [id number] [place] [address] Dec, [facility] [place] [facility] [address] [id number] [place] [address] Dec, [facility] [place] [facility] [address] [id number] [place] [address] Dec, [facility] [place] [facility] [address] [id number] [place] [address] Dec, [facility] [place] [facility] [address] [id number] [place] [address] Nov, [facility] [place] [facility] [address] [id number] [place] [address] Oct, [facility] [place] [facility] [address] [id number] [place] [address] Sep, [facility] [place] [facility] [address] [id number] [place] [address] Aug, [facility] [place] [facility] [address] [id number] [place] [address] Jul, [facility] [address] [facility] [id number], [place] [address] Jul, [facility] [address] [id number], [place] [address] Jul, [facility] [address] [facility] [id number], [place] [address] Apr, [facility] [id number], [place] [address] Apr, [facility] [address] [facility] [id number], [place] [address] Apr, [facility] [id number], [place] [address] January, IMMUNIZATIONS No Known Immunizations SOCIAL HISTORY Never Assessed REASON FOR VISIT 12/16 WalkIN f/u PLAN OF CARE Activity Details Follow Up prn Reason: VITAL SIGNS Height 65 in 2017-12-23 Weight 343 lbs 2017-12-23 Temperature 98 degrees Fahrenheit 2017-12-23 Heart Rate 90 bpm 2017-12-23 Respiratory Rate 20 2017-12-23 BMI 57.07 kg/m2 2017-12-23 Blood pressure systolic 136 mmHg 2017-12-23 Blood pressure diastolic 88 mmHg 2017-12-23 MEDICATIONS Medication Instructions Dosage Frequency Start Date End Date Duration Status Ativan 1 MG Orally Once a day 1 24h Aug, Not-Taking Ibuprofen 800 MG Orally Three times a day 1 tablet with food or milk as needed 8h Active Albuterol Sulfate 90 mcg/actuation inhale 1 puff by Inhalation route every 4 hours PRN wheezing; use with spacer Aug, Not-Taking Topamax 50 MG Orally Twice a day 1 tablet 12h Oct, 30 days Active Albuterol Sulfate (2.5 MG/3ML) 0.083% Inhalation every 4 hrs a neded 3 ml Not-Taking Topamax 25 MG Orally daily 1 tablet twice a day for one week 24h Oct, 7 days Active Gabapentin 300 MG Orally 3 times a day 1 tablet 8h Active Ciprofloxacin 500 MG/5ML (10%) Orally 2 times a day 1 tablet 12h Active Doxycycline Hyclate 100 MG Orally every 12 hrs 1 capsule h Dec, Dec, 10 days Active Temovate 0.05 % Externally Twice a day 1 application to affected area Dec, Dec, 10 day(s) Active RESULTS No Results PROCEDURES Procedure Date Ordered Result Body Site [facility] VISIT ESTABLISHED PATIENT December 23, 2017 INSTRUCTIONS MEDICATIONS ADMINISTERED No Known Medications MEDICAL [...] bronchitis ER visit -04/15-06-30 Hospitalization History Celluliti BLE-[facility] 02/08/17 Hospitalization History Cellulitis-[facility] 04/22/17 Hospitalization History cellulitis-[facility] December 2017
--- OUTSIDE RECORDS SUMMARY | 2018-10-07 16:01 | XMS REPORT ---
Author Author CHARLIE BAILEY [facility] IN [facility] Address [address] [place] [address] Care Team Providers Care Pyrometer Operator Name Role Phone CHARILE BAILEY Unavailable PROBLEMS Type Condition ICD9-CM Code VET65-RE Code Onset Dates Condition Status SNOMED Code Problem Mild intermittent asthma without complication J45.20 Active 342492354 Problem Venous insufficiency I87.2 Active 41045661 Problem Morbid obesity E66.01 Active 050974444 Problem BMI 50.0-59.9, adult Z68.43 Active 627671163 Problem Bipolar affective disorder, currently depressed, mild F31.31 Active 535403073 Problem Methamphetamine use disorder, severe, 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 Active 98059169 Problem Cervical disc disease M50.90 Active 301210280 Problem Alcohol use disorder, mild, abuse F10.10 Active 60894897 Problem Cocaine use disorder, severe, 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 Active 29357709 Problem Bipolar disorder with severe depression F31.4 Active 497055515 Problem Pain in left shoulder M25.512 Active 36767398 Problem 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 312211309 Problem Sleep apnea G47.30 Active 94904391 Problem Cervical radiculopathy M54.12 Active 48173088 ALLERGIES No Known Allergies ENCOUNTERS Encounter Location Date Diagnosis [facility] [id number] [address] Mar, [facility] [id number] [place] [address] 76262- 6384 Mar, [facility] [address] [place] [address] 07186- 9491 Mar, Cellulitis of left lower limb L03.116 ; BMI 50.0-59.9, adult Z68.43 and Acute nasopharyngitis J00 [facility] [address] [place] [address] 75803- 0620 Feb, 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 ; Venous insufficiency I87.2 and BMI 50.0-59.9, adult Z68.43 [facility] [id number] [place] [address] 30146- 1860 Feb, Cellulitis of left lower extremity L03.116 and BMI 50.0-59.9 , adult Z68.43 [facility] [id number] [place] [address] 56973- 5368 Feb, [place] [address] 83536- 3690 January, [facility] [id number] [place] [address] 54974- 5817 January, Medicare annual wellness visit, initial Z00.00 ; Morbid obesity E66.01 ; Mild intermittent asthma without complication J45.20 ; Bipolar disorder with severe depression F31.4 ; 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 ; Venous insufficiency I87.2 and Encounter for immunization Z23 [place] [address] 0[address]33- 0840 January, [place] [id number] [place] [address] 88268- 4785 January, Cellulitis of left lower extremity L03.116 and BMI 50.0-59.9 , adult Z68.43 [place] [id number] [place] [address] 25703- 4151 Dec, Non-pressure chronic ulcer of left calf, 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 ; History of cellulitis Z87.2 and BMI 50.0-59.9, adult Z68.43 [facility] [address] [place] [address] 46067 -1316 Dec, Cloudy urine R82.90 ; Cellulitis of lower extremity, unspecified laterality L03.119 and BMI 50.0-59.9, adult Z68.43 [place] [address] 10597- 9230 13 Nov, 2017 Sleep apnea G47.30 [place] [address] 87795- 2489 08 Nov, 2017 Bipolar affective disorder, currently depressed, mild F31.31 ; Methamphetamine use disorder, severe, 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 ; Cocaine use disorder, severe, 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 ; Alcohol use disorder, mild, abuse F10.10 and BMI 50.0-59.9, adult Z68.43 [place] [address] 85651- 4430 15 Oct, 2017 BMI 50.0-59.9, adult Z68.43 ; Bipolar affective disorder, currently depressed, mild F31.31 ; Methamphetamine use disorder, severe, 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 ; Cocaine use disorder, severe, 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 and Alcohol use disorder, mild, abuse F10.10 [place] [address] 30186- 7227 14 Oct, 2017 [place] [address] 91252- 8317 01 Oct, 2017 BMI 50.0-59.9, adult Z68.43 ; 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 and Morbid obesity E66.01 [facility] [id number] [place] [address] 02476 -5058 Sep, Acute suppurative otitis media of right ear without spontaneous rupture of tympanic membrane, recurrence not specified H66.001 and BMI 60.0-69.9, adult Z68.44 [place] [address] 45704- 2002 02 Sep, 2017 [place] [address] 74316- 8457 Aug, Cervical disc disease M50.90 [place] [address] 37601- 5071 Aug, [facility] [address] [place] [address] 89076- 9695 Aug, Mild intermittent asthma without complication J45.20 ; Cervical radiculopathy M54.12 ; Venous insufficiency I87.2 ; Morbid obesity E66.01 and BMI 50.0-59.9, adult Z68.43 [place] [id number] [place] [address] 53526- 1204 Jun, [facility] [id number] [place] [address] 78323- 3316 May, [place] [id number] [place] [address] 19642- 6360 Apr, [place] [id number] [place] [address] 41945- 6835 Apr, 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 [facility] [id number] [place] [address] 65279- 2752 Mar, [facility] [address] [place] [address] 07503 -3928 Mar, Cellulitis of left lower limb L03.116 [facility] [address] [place] [address]- 2325 Mar, 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 and Cellulitis L03.90 [place] [address] 58771- 7723 Mar, Bronchitis J40 and Cellulitis L03.90 [place] [id number] [place] [address] 17242- 5400 January, [place] [address] 99145- 4632 January, [place] [address] 24991- 4428 Nov, 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 ; Cellulitis L03.90 ; Obese E66.9 ; Pain in left shoulder M25.512 ; Localized edema R60.0 ; Sleep apnea G47.30 ; Anxiety about health F41.8 and Bipolar disorder with severe depression F31.4 [place] [id number] [place] [address] 97919- 1615 Aug, Obese E66.9 ; 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 ; Sleep apnea G47.30 ; Cellulitis L03.90 ; Cellulitis of unspecified part of limb L03.119 ; Intractable tension-type headache, unspecified chronicity pattern G44.201 ; Concussion, without loss of consciousness, subsequent encounter S06.0X0D and Localized edema R60.0 [place] [id number] [place] [address] 59733- 2118 Jun, [place] [id number] [place] [address] 88865- 0611 Jun, 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 ; Other chronic pain G89.29 ; Cellulitis of unspecified part of limb L03.119 and Cutaneous abscess of limb, unspecified L02.419 [place] [id number] [place] [address] 29278- 4124 Jun, [place] [address] [place] [address]- 5145 May, [facility] [id number] [place] [address] 15838- 6651 May, [facility] [id number] [place] [address] 99536- 5662 Apr, Impingement syndrome, shoulder, left M75.42 and SLAP lesion of left shoulder S43.432A [place] [id number] [place] [address] 59174- 7834 Apr, [place] [id number] [place] [address] 82291- 5052 Apr, [place] [id number] [place] [address] 74798- 6639 Apr, [place] [id number] [place] [address] 48107- 1511 Apr, Cellulitis L03.90 ; Obese E66.9 ; Pain in left shoulder M25.512 and Edema, unspecified type R60.9 [place] [id number] [place] [address] 88641- 0690 Mar, Obese E66.9 ; Pain in left shoulder M25.512 and Other chronic pain G89.29 [place] [id number] [place] [address] 19133- 2281 Feb, Anxiety about health F41.8 [place] [id number] [place] [address] 93202- 8078 Feb, Obese E66.9 ; 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 ; Shortness of breath R06.02 ; Palpitations R00.2 ; Bipolar disorder with severe depression F31.4 and 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 E40 [place] [address] [place] [address] 48360- 8361 09 Feb, 2016 Bipolar disorder with severe depression F31.4 [place] [id number] [place] [address] 99441- 2215 07 Feb, 2016 Injury of left shoulder and upper arm, initial encounter S49.92XA [place] [address] 65236- 0747 January, [facility] [id number] [place] [address] 11257- 8331 Dec, Bipolar disorder with severe depression F31.4 [place] [id number] [place] [address] 72609- 7487 Dec, Obese E66.9 ; 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 ; Sleep apnea G47.30 ; Anxiety about health F41.8 and Bipolar disorder with severe depression F31.4 [place] [id number] [place] [address] 74661- 6608 Dec, Bipolar disorder with severe depression F31.4 [place] [id number] [place] [address] 91345- 2479 Dec, Bipolar disorder with severe depression F31.4 and 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 [place] [id number] [place] [address] 15696- 3720 30 Nov, 2015 [place] [id number] [place] [address] 64306- 6020 Nov, [place] [id number] [place] [address] 92330- 9397 Nov, [facility] [id number] [place] [address] 19644- 4290 Nov, [facility] [id number] [place] [address] 46922- 2516 Nov, Bipolar disorder with severe depression F31.4 [facility] [address] [place] [address] 89697- 8174 17 Nov, 2015 Bipolar disorder with severe depression F31.4 [facility] [address] 83572- 9611 16 Nov, 2015 Anxiety about health F41.8 ; Obese E66.9 ; 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 ; Bipolar disorder with severe depression F31.4 and Family history of obesity Z83.49 [place] [address] 26516- 3387 14 Nov, 2015 [place] [address] 27107- 5267 09 Nov, 2015 Obese E66.9 ; 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 ; Cellulitis L03.90 ; Palpitations R00.2 ; Sleep apnea G47.30 and Shortness of breath R06.02 [place] [address] 31287- 2410 Sep, UTI (urinary tract infection) N39.0 and Bronchitis J40 [address] 93304- 8908 Sep, [place] [address] 61277- 2235 Mar, Left carpal tunnel syndrome 354.0 [place] [address] 89765- 1206 Feb, Cellulitis 682.9 and Ankle edema 782.3 [place] [address] 56619- 6582 Feb, [place] [address] 43994- 9579 January, Carpal tunnel syndrome on left 354.0 [place] [address] 49798- 2400 January, Shoulder pain, left 719.41 [place] [address] 21797- 3814 January, [place] [address] 90888- 3993 Dec, [facility] [place] [facility] [address] [id number] [place] [address]- 3097 Dec, [facility] [place] [facility] [address] [id number] [place] 7875 Oct, [facility] [place] [facility] [address] [id number] [place] [address]- 8165 Oct, [facility] [place] [facility] [address] [id number] [place] [address]- 7648 Oct, [facility] [place] [facility] [address] [id number] [place] [address]- 6040 Oct, [facility] [place] [facility] [address] [facility] [id number] [place] [address]- 6232 Sep, [facility] [place] [facility] [address] [facility] [id number] [place] [address]- 9666 Sep, [facility] [place] [facility] [address] [id number] [place] [address]- 4743 Aug, [facility] [place] [facility] [address] [facility] [id number] [place] [address]- 6738 Aug, [facility] [place] [facility] [address] [facility] [id number] [place] [address]- 5180 Jun, [facility] [place] [facility] [address] [facility] [id number] [place] [address]- 7051 Jun, [facility] [place] [facility] [address] [id number] [place] [address]- 6490 May, [facility] [place] [facility] [address] [id number] [place] [address]- 3671 May, [facility] [place] [facility] [address] [id number] [place] [address]- 1183 May, [facility] [place] [facility] [address] [facility] [id number] [place] [address]- 5393 May, [facility] [place] [facility] [address] [id number] [place] [address]- 3108 May, [facility] [place] [facility] [address] [id number] [place] [address]- 6350 May, [facility] [place] [facility] [address] [id number] [place] [address]- 4051 Apr, [facility] [place] [facility] [address] [id number] [place] [address]- 0312 Apr, [facility] [place] [facility] [address] [id number] [place] [address]- 1880 Apr, [facility] [place] [facility] [address] [id number] [place] [address]- 3765 Apr, [facility] [place] [facility] [address] [id number] [place] [address]- 0482 Apr, [facility] [place] [facility] [address] [id number] [place] [address]- 1890 Apr, [facility] [place] [facility] [address] [id number] [place] [address]- 3144 Apr, [facility] [place] [facility] [address] [id number] [place] [address]- 2833 Mar, [facility] [place] [facility] [address] [id number] [place] [address]- 3822 Mar, [facility] [place] [facility] [address] [id number] [place] [address]- 0475 Mar, [facility] [place] [facility] [address] [id number] [place] [address]- 2232 Mar, [facility] [place] [facility] [address] [id number] [place] [address]- 0619 Mar, [facility] [place] [facility] [address] [id number] [place] [address]- 5237 Mar, [facility] [place] [facility] [address] [id number] [place] [address]- 8029 Feb, [facility] [place] [facility] [address] [id number] [place] [address]- 3351 Feb, [facility] [place] [facility] [address] [id number] [place] [address]- 3356 Feb, [facility] [place] [facility] [address] [id number] [place] [address]- 2625 Feb, [facility] [place] [facility] [address] [id number] [place] [address]- 6855 January, [facility] [place] [facility] [address] [id number] [place] [address]- 8226 January, [facility] [place] [facility] [address] [id number] [place] [address]- 8131 January, [facility] [place] [facility] [address] [id number] [place] [address]- 8131 January, [facility] [place] [facility] [address] [id number] [place] [address]- 7645 January, [facility] [place] [facility] [address] [id number] [place] [address]- 4063 January, [facility] [place] [facility] [address] [id number] [place] [address]- 4211 January, [facility] [place] [facility] [address] [id number] [place] [address]- 0086 January, [facility] [place] [facility] [address] [id number] [place] [address]- 2195 January, [facility] [place] [facility] [address] [id number] [place] [address]- 7325 January, [facility] [place] [facility] [address] [id number] [place] [address]- 7308 January, [facility] [place] [facility] [address] [id number] [place] [address]- 1926 Dec, [facility] [place] [facility] [address] [id number] [place] [address]- 0146 Dec, [facility] [place] [facility] [address] [id number] [place] [address]- 1471 Dec, [facility] [place] [facility] [address] [id number] [place] [address]- 8598 Dec, [facility] [place] [facility] [address] [id number] [place] [address]- 9798 Nov, [facility] [place] [facility] [address] [id number] [place] [address]- 1134 Nov, [facility] [place] [facility] [address] [id number] [place] [address]- 1433 Oct, [facility] [place] [facility] [address] [id number] [place] [address]- 3751 Oct, [facility] [place] [facility] [address] [id number] [place] [address]- 0607 Oct, [facility] [place] [facility] [address] [id number] [place] [address]- 0179 Oct, [facility] [place] [facility] [address] [id number] [place] [address]- 5965 Sep, [facility] [place] [facility] [address] [facility] [id number] [place] [address]- 8337 Sep, [facility] [place] [facility] [address] [id number] [place] [address]- 9231 Sep, [facility] [place] [facility] [address] [id number] [place] [address]- 3601 Sep, [facility] [place] [facility] [address] [id number] [place] [address]- 2245 Sep, [facility] [place] [facility] [address] [id number] [place] [address]- 7525 Sep, [facility] [place] [facility] [address] [facility] [id number] [place] [address]- 4177 Aug, [facility] [address] [id number] [place] [address]- 7000 Aug, [facility] [place] [facility] [address] [id number] [place] [address]- 7702 Aug, [facility] [place] [facility] [address] [id number] [place] [address]- 1123 Aug, [facility] [place] [facility] [address] [id number] [place] [address]- 8596 Aug, [facility] [address] [id number] [place] [address]- 2773 Aug, [facility] [place] [facility] [address] [id number] [place] [address]- 8554 Aug, [facility] [place] [facility] [address] [id number] [place] [address]- 8586 Aug, [facility] [place] [facility] [address] [id number], [place] [address]- 3550 Aug, [facility] [place] [facility] [address] [id number] [place] [address]- 6570 Aug, [facility] [place] [facility] [address] [id number], [place] [address]- 6022 Jul, [facility] [place] [facility] [address] [id number], [place] [address]- 8990 Jul, [facility] [place] [facility] [address] [id number], [place] [address]- 7373 Jul, [facility] [place] [facility] [address] [id number], [place] [address]- 7839 Jul, [facility] [place] [facility] [address] [id number], [place] [address]- 2955 Jun, [facility] [place] [facility] [address] [id number], [place] [address]- 2147 Jun, [facility] [place] [facility] [address] [id number], [place] [address]- 2139 Jun, [facility] [address] [id number] [place] [address]- 5394 Jun, [facility] [place] [facility] [address] [id number] [place] [address]- 2298 Jun, [facility] [place] [facility] [address] [id number] [place] [address]- 5418 May, [facility] [place] [facility] [address] [id number] [place] [address]- 0900 May, [facility] [place] [facility] [address] [id number] [place] [address]- 6851 Apr, [facility] [place] [facility] [address] [id number] [place] [address]- 9630 Mar, [facility] [place] [facility] [address] [id number] [place] [address]- 9864 Mar, [facility] [place] [facility] [address] [id number] [place] [address]- 8733 Mar, [facility] [place] [facility] [address] [id number] [place] [address]- 8750 Mar, [facility] [place] [facility] [address] [id number] [place] [address]- 1690 Mar, [facility] [place] [facility] [address] [id number] [place] [address]- 8296 Mar, [facility] [place] [facility] [address] [id number] [place] [address]- 6048 Feb, [facility] [place] [facility] [address] [id number] [place] [address]- 9520 Feb, [facility] [place] [facility] [address] [id number] [place] [address]- 9643 16 Feb, 2013 [facility] [place] [facility] [address] [id number] [place] [address] 15 Feb, 2013 [facility] [place] [facility] [address] [id number] [place] [address] 14 Feb, 2013 [facility] [address] [id number] [place] [address] 13 Feb, 2013 [facility] [place] [facility] [address] [id number] [place] [address] 11 Feb, 2013 [facility] [address] [id number] [place] [address] January, [facility] [place] [facility] [address] [id number] [place] [address] January, [facility] [address] [id number] [place] [address] Nov, [facility] [place] [facility] [address] [id number] [place] [address] Nov, [facility] [place] [facility] [address] [id number] [place] [address] Nov, [facility] [place] [facility] [address] [id number] [place] [address] Nov, [facility] [place] [facility] [address] [id number] [place] [address] Oct, [facility] [place] [facility] [address] [id number] [place] [address] Oct, [facility] [place] [facility] [address] [id number] [place] [address] Oct, [facility] [place] [facility] [address] [id number] [place] [address] Sep, [facility] [place] [facility] [address] [id number] [place] [address] Sep, [facility] [place] [facility] [address] [id number] [place] [address] 15 Sep, 2012 [facility] [place] [facility] [address] [id number] [place] [address] Sep, [facility] [place] [facility] [address] [id number] [place] [address] Aug, [facility] [place] [facility] [address] [id number] [place] [address] Aug, [facility] [place] [facility] [address] [id number] [place] [address] Jul, [facility] [place] [facility] [address] [id number] [place] [address] Jul, [facility] [place] [facility] [address] [id number] [place] [address]- [address] Jun, [facility] [place] [facility] [address] [id number] [place] [address] Jun, [facility] [place] [facility] [address] [id number] [place] [address] Jun, [facility] [place] [facility] [address] [id number], [place] [address] Jun, [facility] [place] [facility] [address] [id number] [place] [address] Jun, [facility] [place] [facility] [address] [id number], [place] [address] Jun, [facility] [place] [facility] [address] [id number], [place] [address] Jun, [facility] [place] [facility] [address] [id number], [place] [address] Jun, [facility] [place] [facility] [address] [id number], [place] [address] Jun, [facility] [place] [facility] [address] [facility] [id number], [place] [address] Jun, [facility] [place] [facility] [address] [id number], [place] [address] Jun, [facility] [place] [facility] [address] [id number] [place] [address] 23 Jun, 2012 [facility] [address] [id number] [place] [address] 18 Jun, 2012 [facility] [place] [facility] [address] [id number] [place] [address] Jun, [facility] [place] [facility] [address] [id number] [place] [address] Jun, [facility] [place] [facility] [address] [id number] [place] [address] Jun, [facility] [place] [facility] [address] [id number] [place] [address] 29 May, 2012 [facility] [place] [facility] [address] [address] [id number] [place] [address] 26 May, 2012 [facility] [place] [facility] [address] [id number] [place] [address] 25 May, 2012 [facility] [place] [facility] [address] [id number] [place] [address] 24 May, 2012 [facility] [place] [facility] [address] [id number] [place] [address] May, [facility] [place] [facility] [address] [id number] [place] [address] Mar, [facility] [place] [facility] [address] [id number] [place] [address] Mar, [facility] [place] [facility] [address] [id number] [place] [address] Mar, [facility] [place] [facility] [address] [id number] [place] [address] Mar, [facility] [place] [facility] [address] [id number] [place] [address] Mar, [facility] [place] [facility] [address] [id number] [place] [address] Mar, [facility] [place] [facility] [address] [id number] [place] [address] Feb, [facility] [place] [facility] [address] [id number] [place] [address] Feb, [facility] [place] [facility] [address] [id number] [place] [address] Feb, [facility] [place] [facility] [address] [id number] [place] [address] Feb, [facility] [place] [facility] [address] [id number] [place] [address] Feb, [facility] [place] [facility] [address] [id number] [place] [address] January, [facility] [place] [facility] [address] [id number] [place] [address] Dec, [facility] [place] [facility] [address] [id number] [place] [address] Dec, [facility] [place] [facility] [address] [id number] [place] [address] Dec, [facility] [place] [facility] [address] [id number] [place] [address] Dec, [facility] [place] [facility] [address] [id number] [place] [address] Dec, [facility] [place] [facility] [address] [id number], [place] [address] Nov, [facility] [place] [facility] [address] [id number] [place] [address] Oct, [facility] [place] [facility] [address] [id number] [place] [address] Sep, [facility] [place] [facility] [address] [id number], [place] [address] Aug, [facility] [place] [facility] [address] [id number], [place] [address] Jul, [facility] [address] [id number], [place] [address] Jul, [facility] [address] [id number], [place] [address] Jul, [facility] [address] [id number], [place] [address] Apr, [facility] [address] [id number], [place] [address] Apr, [facility] [address] [id number], [place] [address] Apr, [facility] [address] [id number], [place] [address] January, IMMUNIZATIONS Vaccine Route Administration Date Status ROCEPHIN 1 GM (IM) IM Intramuscular December 16, 2017 Administered SOCIAL HISTORY Never Assessed REASON FOR VISIT feet/leg swelling- infection JStrasserRN, Cloudy/dark urine PLAN OF CARE Activity Details Follow Up 1 Week Reason: VITAL SIGNS Height 65 in 2017-12-16 Weight 349.0 lbs 2017-12-16 Temperature 99.0 degrees Fahrenheit 2017-12-16 Heart Rate 88 bpm 2017-12-16 Respiratory Rate 20 2017-12-16 BMI 58.07 kg/m2 2017-12-16 Blood pressure systolic 148 mmHg 2017-12-16 Blood pressure diastolic 90 mmHg 2017-12-16 MEDICATIONS Medication Instructions Dosage Frequency Start Date End Date Duration Status Gabapentin 300 MG Orally 3 times a day 1 tablet 8h Active Topamax 50 MG Orally Twice a day 1 tablet 12h Oct, 30 days Active Topamax 25 MG Orally daily 1 tablet twice a day for one week 24h Oct, 7 days Active Albuterol Sulfate 90 mcg/actuation inhale 1 puff by Inhalation route every 4 hours PRN wheezing; use with spacer Aug, Not-Taking Temovate 0.05 % Externally Twice a day 1 application to affected area 12h Dec, Dec, 10 day(s) Active Albuterol Sulfate (2.5 MG/3ML) 0.083% Inhalation every 4 hrs a neded 3 ml Not-Taking Ativan 1 MG Orally Once a day 1 24h Aug, Not-Taking Ciprofloxacin 500 MG/5ML (10%) Orally 2 times a day 1 tablet 12h Active Ibuprofen 800 MG Orally Three times a day 1 tablet with food or milk as needed 8h Active Doxycycline Hyclate 100 MG Orally every 12 hrs 1 capsule 12h Dec, Dec, 10 days Active RESULTS Name Result Date Reference Range UA LONG DIP (IN HOUSE) 2017-12-16 Lot # [id number] Exp date 2018-07-15 Clarity clear Color dark yellow Odor none GLU negative MOY negative KET negative SG >=1.030 BLO negative pH 6.0 Protein negative URO 0.2 NIT negative TANVIR negative Lot # [id number] Exp date December 2017 PROCEDURES Procedure Date Ordered Result Body Site URINALYSIS, AUTO, W/O SCOPE December 16, 2017 [facility] VISIT ESTABLISHED PATIENT December 16, 2017 ROCEPHIN 1 GM (IM) December 16, 2017 THER/PROPH/DIAG INJ, SC/IM December 16, 2017 INSTRUCTIONS MEDICATIONS ADMINISTERED No Known Medications [...] Hospitalization History Celluliti BLE-H 02/08/17 Hospitalization History Cellulitis-[facility] 04/22/17 Hospitalization History cellulitis-[facility] December 2017
--- OUTSIDE RECORDS SUMMARY | 2018-10-07 16:02 | XMS REPORT ---
Author Author CHLOE LALITA [facility] Address [address] [place] [address] Care Team Providers Care Make Up Editor Name Role Phone EMMANUELKAVON JACKSONA Unavailable PROBLEMS Type Condition ICD9-CM Code GME01-XG Code Onset Dates Condition Status SNOMED Code Problem Mild intermittent asthma without complication J45.20 Active 082996576 Problem Venous insufficiency I87.2 Active 08442646 Problem Morbid obesity E66.01 Active 845131158 Problem BMI 50.0-59.9, adult Z68.43 Active 217038770 Problem Bipolar affective disorder, currently depressed, mild F31.31 Active 641223490 Problem Methamphetamine use disorder, severe, 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 Active 26988226 Problem Cervical disc disease M50.90 Active 056637537 Problem Alcohol use disorder, mild, abuse F10.10 Active 06511487 Problem Cocaine use disorder, severe, 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 Active 56133176 Problem Bipolar disorder with severe depression F31.4 Active 859585401 Problem Pain in left shoulder M25.512 Active 64441277 Problem 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 184537741 Problem Sleep apnea G47.30 Active 55903433 Problem Cervical radiculopathy M54.12 Active 70828779 ALLERGIES No Information ENCOUNTERS Encounter Location Date Diagnosis [facility] [id number] [address] Mar, [facility] [address] [address] Mar, [facility] [id number] [address] Mar, Cellulitis of left lower limb L03.116 ; BMI 50.0-59.9, adult Z68.43 and Acute nasopharyngitis J00 [facility] [id number] [place] [address] 81397- 4137 Feb, 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 ; Venous insufficiency I87.2 and BMI 50.0-59.9, adult Z68.43 [place] [facility] [id number] [place] [address] 91953- 1372 Feb, Cellulitis of left lower extremity L03.116 and BMI 50.0-59.9 , adult Z68.43 [place] [facility] [id number] [place] [address] 34460- 6296 Feb, [place] [address] [address]- [address] January, [address] [address]- [address] January, Medicare annual wellness visit, initial Z00.00 ; Morbid obesity E66.01 ; Mild intermittent asthma without complication J45.20 ; Bipolar disorder with severe depression F31.4 ; 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 ; Venous insufficiency I87.2 and Encounter for immunization Z23 [address] [id number] [place] [address] 71638- 3207 January, [address] [address]- 5[address] January, Cellulitis of left lower extremity L03.116 and BMI 50.0-59.9 , adult Z68.43 [place] [id number] [place] [address] 49621- 5629 Dec, Non-pressure chronic ulcer of left calf, 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 ; History of cellulitis Z87.2 and BMI 50.0-59.9, adult Z68.43 [facility] [id number] [place] [address] 45106 -4252 Dec, Cloudy urine R82.90 ; Cellulitis of lower extremity, unspecified laterality L03.119 and BMI 50.0-59.9, adult Z68.43 [place] [address] [address]- 1050 13 Nov, 2017 Sleep apnea G47.30 [place] [address] 87837- 0412 08 Nov, 2017 Bipolar affective disorder, currently depressed, mild F31.31 ; Methamphetamine use disorder, severe, 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 ; Cocaine use disorder, severe, 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 ; Alcohol use disorder, mild, abuse F10.10 and BMI 50.0-59.9, adult Z68.43 [place] [address] 21936- 8901 15 Oct, 2017 BMI 50.0-59.9, adult Z68.43 ; Bipolar affective disorder, currently depressed, mild F31.31 ; Methamphetamine use disorder, severe, 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 ; Cocaine use disorder, severe, 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 and Alcohol use disorder, mild, abuse F10.10 [place] [address] 00168- 8225 14 Oct, 2017 [place] [address] 31812- 2141 01 Oct, 2017 BMI 50.0-59.9, adult Z68.43 ; 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 and Morbid obesity E66.01 [facility] [id number] [place] [address] 17081 -8905 Sep, Acute suppurative otitis media of right ear without spontaneous rupture of tympanic membrane, recurrence not specified H66.001 and BMI 60.0-69.9, adult Z68.44 [place] [address] 13363- 6302 Sep, [place] [address] 37440- 2616 Aug, Cervical disc disease M50.[address] 47949- 9618 Aug, [facility] [id number] [place] [address] 17984- 4080 Aug, Mild intermittent asthma without complication J45.20 ; Cervical radiculopathy M54.12 ; Venous insufficiency I87.2 ; Morbid obesity E66.01 and BMI 50.0-59.9, adult Z68.43 [place] [id number] [place] [address] 17800- 1846 Jun, [facility] [id number] [place] [address] 70361- 3900 May, [place] [id number] [place] [address] 40477- 5383 Apr, [place] [id number] [place] [address] 80541- 4530 Apr, 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 [facility] [address] [id number] Apr, [place] [id number] [place] [address] 50792- 5822 Apr, 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 [place] [id number] [place] [address] 20053- 2041 Apr, Cellulitis of left lower extremity L03.116 ; Localized edema R60.0 ; 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 and Bipolar disorder with severe depression F31.4 [facility] [id number] [place] [address] 30462- 2546 Apr, Cellulitis of unspecified part of limb L03.119 and 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 [place] [id number] [place] [address] 62798- 3480 Mar, [facility] [id number] [place] [address] 79739 -4200 Mar, Cellulitis of left lower limb L03.116 [facility] [id number] [place] [address] 62658- 9576 Mar, 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 and Cellulitis L03.90 [id number] [place] [address] 35029- 1672 Mar, Bronchitis J40 and Cellulitis L03.90 [place] [id number] [place] [address] 20660- 2039 January, [place] [address] 76570- 6281 January, [place] [id number] [place] [address] 27814- 6985 Nov, 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 ; Cellulitis L03.90 ; Obese E66.9 ; Pain in left shoulder M25.512 ; Localized edema R60.0 ; Sleep apnea G47.30 ; Anxiety about health F41.8 and Bipolar disorder with severe depression F31.4 [address] [id number] [place] [address] 18393- 9397 Aug, Obese E66.9 ; 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 ; Sleep apnea G47.30 ; Cellulitis L03.90 ; Cellulitis of unspecified part of limb L03.119 ; Intractable tension-type headache, unspecified chronicity pattern G44.201 ; Concussion, without loss of consciousness, subsequent encounter S06.0X0D and Localized edema R60.0 [place] [id number] [place] [address] 37295- 0672 Jun, [place] [id number] [place] [address] 07735- 2021 Jun, 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 ; Other chronic pain G89.29 ; Cellulitis of unspecified part of limb L03.119 and Cutaneous abscess of limb, unspecified L02.419 [place] [id number] [place] [address] 47280- 0280 Jun, [place] [id number] [place] [address] 77063- 7014 May, [place] [address] [place] [address] 27981- 0477 May, [place] [id number] [place] [address] 85480- 2664 Apr, Impingement syndrome, shoulder, left M75.42 and SLAP lesion of left shoulder S43.432A [place] [id number] [place] [address] 57481- 2472 Apr, [place] [id number] [place] [address] 12901- 6747 Apr, [place] [id number] [place] [address] 05940- 8598 Apr, [place] [id number] [place] [address] 65857- 8203 Apr, Cellulitis L03.90 ; Obese E66.9 ; Pain in left shoulder M25.512 and Edema, unspecified type R60.9 [place] [id number] [place] [address] 20435- 4563 Mar, Obese E66.9 ; Pain in left shoulder M25.512 and Other chronic pain G89.29 [place] [id number] [place] [address] 03444- 4495 Feb, Anxiety about health F41.8 [place] [id number] [place] [address] 56826- 4060 Feb, Obese E66.9 ; 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 ; Shortness of breath R06.02 ; Palpitations R00.2 ; Bipolar disorder with severe depression F31.4 and 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 E40 [place] [address] [place] [address] 89310- 9315 Feb, Bipolar disorder with severe depression F31.4 [place] [id number] [place] [address] 24210- 3437 Feb, Injury of left shoulder and upper arm, initial encounter S49.92XA [place] [id number] [place] [address] 74480- 1446 January, [facility] [id number] [place] [address] 15661- 4055 Dec, Bipolar disorder with severe depression F31.4 [place] [id number] [place] [address] 90381- 6237 Dec, Obese E66.9 ; 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 ; Sleep apnea G47.30 ; Anxiety about health F41.8 and Bipolar disorder with severe depression F31.4 [place] [id number] [place] [address] 18159- 6173 Dec, Bipolar disorder with severe depression F31.4 [place] [id number] [place] [address] 21121- 3854 Dec, Bipolar disorder with severe depression F31.4 and Other mcc (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 Z79.899 [place] [id number] [place] [address] 03099- 5498 Nov, [place] [id number] [place] [address] 23204- 3043 Nov, [place] [id number] [place] [address] 94597- 3238 Nov, [facility] [id number] [place] [address] 54714- 8782 Nov, [place] [id number] [place] [address] 44998- 3083 Nov, Bipolar disorder with severe depression F31.4 [facility] [id number] [place] [address] 84084- 4295 Nov, Bipolar disorder with severe depression F31.4 [facility] [id number] [place] [address] 67648- 5314 16 Nov, 2015 Anxiety about health F41.8 ; Obese E66.9 ; 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 ; Bipolar disorder with severe depression F31.4 and Family history of obesity Z83.49 [place] [id number] [place] [address] 30924- 7279 14 Nov, 2015 [place] [address] 31307- 4054 Nov, Obese E66.9 ; 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 ; Cellulitis L03.90 ; Palpitations R00.2 ; Sleep apnea G47.30 and Shortness of breath R06.02 [place] [address] 64489- 4522 Sep, UTI (urinary tract infection) N39.0 and Bronchitis J40 [place] [address] 31907- 4035 Sep, [place] [address] 63654- 8384 Mar, Left carpal tunnel syndrome 354.0 [place] [address] 34844- 2810 Feb, Cellulitis 682.9 and Ankle edema 782.3 [place] [address] 34810- 0915 Feb, [place] [address] 63282- 8535 January, Carpal tunnel syndrome on left 354.0 [place] [address] 09353- 4319 January, Shoulder pain, left 719.41 [place] [address] 93025- 8457 January, [place] [address] 70639- 4390 Dec, [facility] [place] [facility] [address] [id number] [place] [address]- 1162 Dec, [facility] [place] [facility] [address] [id number] [place] [address]- 8978 Oct, [facility] [place] [facility] [address] [id number] [place] [address]- 2585 Oct, [facility] [place] [facility] [address] [id number] [place] [address]- 6754 Oct, [facility] [place] [facility] [address] [id number] [place] [address]- 0532 Oct, [facility] [place] [facility] [address] [id number] [place] [address]- 4412 Sep, [facility] [place] [facility] [address] [id number] [place] [address]- 2248 Sep, [facility] [place] [facility] [address] [id number] [place] [address]- 0477 Aug, [facility] [place] [facility] [address] [id number] [place] [address]- 4110 Aug, [facility] [place] [facility] [address] [id number] [place] [address]- 2048 Jun, [facility] [place] [facility] [address] [id number] [address]- 5818 Jun, [facility] [place] [facility] [address] [id number] [address]- 1969 May, [facility] [place] [facility] [address] [id number] [place] [address]- 9124 May, [facility] [place] [facility] [address] [id number] [place] [address]- 4068 May, [facility] [place] [facility] [address] [id number] [place] [address]- 1464 May, [facility] [place] [facility] [address] [id number] [place] [address]- 6210 05 May, 2014 [facility] [place] [facility] [address] [id number] [place] [address]- 6526 May, [facility] [place] [facility] [address] [id number] [place] [address]- 1159 Apr, [facility] [place] [facility] [address] [id number] [place] [address]- 3606 Apr, [facility] [place] [facility] [address] [id number] [place] [address]- 8247 Apr, [facility] [place] [facility] [address] [id number] [place] [address]- 8760 Apr, [facility] [place] [facility] [address] [id number] [place] [address]- 0796 Apr, [facility] [place] [facility] [address] [id number] [place] [address]- 0550 Apr, [facility] [place] [facility] [address] [id number] [place] [address]- 8288 Apr, [facility] [place] [facility] [address] [id number] [place] [address]- 6262 Mar, [facility] [place] [facility] [address] [id number] [place] [address]- 0642 Mar, [facility] [place] [facility] [address] [id number] [place] [address]- 0555 Mar, [facility] [place] [facility] [address] [id number] [place] [address]- 9708 Mar, [facility] [place] [facility] [address] [id number] [place] [address]- 6070 Mar, [facility] [place] [facility] [address] [id number] [place] [address]- 8688 Mar, [facility] [place] [facility] [address] [id number] [place] [address]- 7115 Feb, [facility] [place] [facility] [address] [id number] [place] [address]- 6202 Feb, [facility] [place] [facility] [address] [id number] [place] [address]- 4386 Feb, [facility] [place] [facility] [address] [id number] [place] [address]- 8521 Feb, [facility] [place] [facility] [address] [id number] [place] [address]- 1279 January, [facility] [place] [facility] [address] [id number] [place] [address]- 7520 January, [facility] [place] [facility] [address] [id number] [place] [address]- 3494 January, [facility] [place] [facility] [address] [id number] [place] [address]- 4431 January, [facility] [place] [facility] [address] [id number] [place] [address]- 6962 January, [facility] [place] [facility] [address] [id number] [place] [address]- 6182 January, [facility] [place] [facility] [address] [id number] [place] [address]- 5765 January, [facility] [place] [facility] [address] [id number] [place] [address]- 5097 January, [facility] [place] [facility] [address] [id number] [place] [address]- 5453 January, [facility] [place] [facility] [address] [id number] [place] [address]- 1879 January, [facility] [place] [facility] [address] [id number] [place] [address]- 1574 January, [facility] [place] [facility] [address] [id number] [place] [address]- 8012 Dec, [facility] [place] [facility] [address] [id number] [place] [address]- 1493 Dec, [facility] [place] [facility] [address] [id number] [place] [address]- 7714 Dec, [facility] [place] [facility] [address] [id number] [place] 1448 Dec, [facility] [place] [facility] [address] [id number] [place] [address]- 5388 Nov, [facility] [place] [facility] [address] [id number] [place] [address]- 0284 Nov, [facility] [place] [facility] [address] [id number] [place] [address]- 1142 Oct, [facility] [place] [facility] [address] [id number] [place] [address]- 4533 Oct, [facility] [place] [facility] [address] [facility] [id number] [place] [address]- 5543 Oct, [facility] [place] [facility] [address] [id number] [place] [address]- 5350 Oct, [facility] [place] [facility] [address] [id number] [place] [address]- 5757 Sep, [facility] [place] [facility] [address] [facility] [id number] [place] [address]- 2541 Sep, [facility] [place] [facility] [address] [id number] [place] [address]- 0194 Sep, [facility] [place] [facility] [address] [id number] [place] [address]- 4149 Sep, [facility] [place] [facility] [address] [id number] [place] [address]- 0567 Sep, [facility] [place] [facility] [address] [facility] [id number] [place] [address]- 0524 Sep, [facility] [place] [facility] [address] [facility] [id number] [place] [address]- 5238 Aug, [facility] [place] [facility] [address] [id number] [place] [address]- 0383 24 Aug, 2013 [facility] [place] [facility] [address] [id number] [place] 7386 Aug, [facility] [place] [facility] [address] [id number] [place] [address]- 2257 Aug, [facility] [place] [facility] [address] [id number] [place] [address]- 7808 Aug, [facility] [place] [facility] [address] [id number] [place] [address]- 3178 Aug, [facility] [place] [facility] [address] [id number] [place] [address]- 6829 Aug, [facility] [place] [facility] [address] [id number] [place] 0967 Aug, [facility] [place] [facility] [address] [id number] [place] [address]- 1152 Aug, [facility] [place] [facility] [address] [id number] [place] 6566 Aug, [facility] [place] [facility] [address] [id number] [place] [address]- 6147 Jul, [facility] [place] [facility] [address] [id number] [place] [address]- 4860 15 Jul, 2013 [facility] [place] [facility] [address] [id number] [place] [address]- 9602 Jul, [facility] [place] [facility] [address] [id number] [place] [address]- 0757 Jul, [facility] [place] [facility] [address] [id number] [place] [address]- 4956 Jun, [facility] [place] [facility] [address] [id number] [place] [address]- 5471 Jun, [facility] [place] [facility] [address] [id number] [place] [address]- 2569 Jun, [facility] [place] [facility] [address] [id number] [place] [address]- 6504 Jun, [facility] [place] [facility] [address] [id number] [place] [address]- 0054 Jun, [facility] [place] [facility] [address] [id number] [place] [address] May, [facility] [place] [facility] [address] [id number] [place] [address] May, [facility] [place] [facility] [address] [id number] [place] [address] Apr, [facility] [place] [facility] [address] [id number] [place] [address] Mar, [facility] [place] [facility] [address] [id number] [place] [address] Mar, [facility] [place] [facility] [address] [id number] [place] [address] Mar, [facility] [place] [facility] [address] [id number] [place] [address] Mar, [facility] [place] [facility] [address] [id number] [place] [address] Mar, [facility] [place] [facility] [address] [id number] [address] Mar, [facility] [place] [facility] [address] [id number][place] [address] Feb, [facility] [place] [facility] [address] [id number] [place] [address] Feb, [facility] [place] [facility] [address] [id number], [place] [address] 16 Feb, 2013 [facility] [place] [facility] [address] [id number] [place] [address] 15 Feb, 2013 [facility] [place] [facility] [address] [id number] [place] [address] 14 Feb, 2013 [facility] [address] [id number] [place] [address] 13 Feb, 2013 [facility] [address] [id number] [place] [address] 11 Feb, 2013 [facility] [address] [id number] [place] [address] January, [facility] [address] [id number] [place] [address] January, [facility] [address] [id number] [place] [address] Nov, [facility] [address] [id number] [place] [address] Nov, [facility] [address] [id number] [place] [address] Nov, [facility] [address] [id number] [place] [address] Nov, [facility] [address] [id number] [place] [address] Oct, [facility] [address] [id number] [place] [address] Oct, [facility] [address] [id number] [place] [address] Oct, [facility] [address] [id number] [place] [address] Sep, [facility] [place] [facility] [address] [id number] [place] [address] Sep, [facility] [place] [facility] [address] [id number] [place] [address] 15 Sep, 2012 [facility] [place] [facility] [address] [id number] [place] [address] Sep, [facility] [place] [facility] [address] [id number] [place] [address] Aug, [facility] [place] [facility] [address] [id number] [place] [address] Aug, [facility] [place] [facility] [address] [id number] [place] [address] Jul, [facility] [place] [facility] [address] [id number] [place] [address] Jul, [facility] [place] [facility] [address] [id number] [place] [address] Jun, [facility] [place] [facility] [address] [id number] [place] [address] Jun, [facility] [place] [facility] [address] [facility] [id number] [place] [address] Jun, [facility] [place] [facility] [address] [id number], [place] [address] Jun, [facility] [place] [facility] [address] [id number], [place] [address] Jun, [facility] [place] [facility] [address] [facility] [id number], [place] [address] Jun, [facility] [place] [facility] [address] [facility] [id number], [place] [address] Jun, [facility] [place] [facility] [address] [id number], [place] [address] Jun, [facility] [place] [facility] [address] [id number], [place] [address] Jun, [facility] [place] [facility] [address] [id number], [place] [address] Jun, [facility] [place] [facility] [address] [facility] [id number], [place] [address] Jun, [facility] [place] [facility] [address] [id number], [place] [address] Jun, [facility] [place] [facility] [address] [id number] [place] [address] Jun, [facility] [place] [facility] [address] [id number] [place] [address] Jun, [facility] [place] [facility] [address] [id number] [place] [address] Jun, [facility] [place] [facility] [address] [id number] [place] [address] Jun, [facility] [place] [facility] [address] [id number] [place] [address] 29 May, 2012 [facility] [place] [facility] [address] [id number] [place] [address] 26 May, 2012 [facility] [place] [facility] [address] [id number] [place] [address] 25 May, 2012 [facility] [place] [facility] [address] [id number] [place] [address] 24 May, 2012 [facility] [place] [facility] [address] [id number] [place] [address] May, [facility] [place] [facility] [address] [facility] [id number] [place] [address] Mar, [facility] [place] [facility] [address] [id number] [place] [address] Mar, [facility] [place] [facility] [address] [id number] [place] [address] Mar, [facility] [place] [facility] [address] [id number] [place] [address] Mar, [facility] [place] [facility] [address] [facility] [id number] [place] [address] Mar, [facility] [place] [facility] [address] [facility] [id number] [place] [address] Mar, [facility] [place] [facility] [address] [id number] [place] [address] 25 Feb, 2012 [facility] [place] [facility] [address] [id number] [place] [address] Feb, [facility] [place] [facility] [address] [id number] [place] [address] Feb, [facility] [place] [facility] [address] [id number] [place] [address] Feb, [facility] [place] [facility] [address] [id number] [place] [address] Feb, [facility] [place] [facility] [address] [id number] [place] [address] January, [facility] [place] [facility] [address] [id number] [place] [address] Dec, [facility] [place] [facility] [address] [id number] [place] [address] Dec, [facility] [place] [facility] [address] [id number] [place] [address] Dec, [facility] [place] [facility] [address] [id number] [place] [address] Dec, [facility] [place] [facility] [address] [id number] [place] [address] Dec, [facility] [place] [facility] [address] [id number] [place] [address] Nov, [facility] [place] [facility] [address] [id number] [place] [address] Oct, [facility] [place] [facility] [address] [id number] [place] [address] Sep, [facility] [place] [facility] [address] [id number] [place] [address] Aug, [facility] [place] [facility] [address] [id number] [place] [address] Jul, [facility] [address] [facility] [id number], [place] [address] Jul, [facility] [address] [facility] [id number], [place] [address] Jul, [facility] [address] [facility] [id number], [place] [address] Apr, [facility] [id number] [address] Apr, [facility] [address] [facility] [id number], [place] [address] Apr, [facility] [id number], [place] [address] January, IMMUNIZATIONS No Known Immunizations SOCIAL HISTORY Never Assessed REASON FOR VISIT kalee/jeanette Hough MA PLAN OF CARE Activity Details Follow Up 3 Months Reason: VITAL SIGNS Height 65 in 2017-11-20 Weight 351 lbs 2017-11-20 Heart Rate 80 bpm 2017-11-20 Respiratory Rate 20 2017-11-20 BMI 58.40 kg/m2 2017-11-20 Blood pressure systolic 130 mmHg 2017-11-20 Blood pressure diastolic 70 mmHg 2017-11-20 MEDICATIONS Medication Instructions Dosage Frequency Start Date End Date Duration Status Ciprofloxacin 500 MG/5ML (10%) Orally 2 times a day 1 tablet 12h Active Albuterol Sulfate (2.5 MG/3ML) 0.083% Inhalation every 4 hrs a neded 3 ml Not-Taking Gabapentin 300 MG Orally 3 times a day 1 tablet 8h Active Topamax 50 MG Orally Twice a day 1 tablet 12h Oct, 30 days Active Ibuprofen 800 MG Orally Three times a day 1 tablet with food or milk as needed 8h Active Albuterol Sulfate 90 mcg/actuation inhale 1 puff by Inhalation route every 4 hours PRN wheezing; use with spacer Aug, Not-Taking Ativan 1 MG Orally Once a day 1 24h Aug, Not-Taking Topamax 25 MG Orally daily 1 tablet twice a day for one week 24h Oct, 7 days Active RESULTS No Results PROCEDURES Procedure Date Ordered Result Body Site [facility] VISIT ESTABLISHED PATIENT November 20, 2017 INSTRUCTIONS MEDICATIONS ADMINISTERED No Known Medications [...] bronchitis ER visit -04/15-06-30 Hospitalization History Celluliti BLE-[facility] 02/08/17 Hospitalization History Cellulitis-[facility] 04/22/17 Hospitalization History cellulitis-[facility] December 2017
--- OUTSIDE RECORDS SUMMARY | 2018-10-07 16:02 | XMS REPORT ---
Author Author CAROLYNE STARR [facility] Address [address] [place] [address] Care Team Providers Care Varnish Melter Helper Name Role Phone CAROLYNE STARR Unavailable PROBLEMS Type Condition ICD9-CM Code YTS15-FS Code Onset Dates Condition Status SNOMED Code Problem Mild intermittent asthma without complication J45.20 Active 921850265 Problem Venous insufficiency I87.2 Active 52714799 Problem Morbid obesity E66.01 Active 649872873 Problem BMI 50.0-59.9, adult Z68.43 Active 953704998 Problem Bipolar affective disorder, currently depressed, mild F31.31 Active 150199851 Problem Methamphetamine use disorder, severe, 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 Active 48335162 Problem Cervical disc disease M50.90 Active 057136960 Problem Alcohol use disorder, mild, abuse F10.10 Active 53197426 Problem Cocaine use disorder, severe, 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 Active 98819536 Problem Bipolar disorder with severe depression F31.4 Active 082067248 Problem Pain in left shoulder M25.512 Active 67543969 Problem 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 682973824 Problem Sleep apnea G47.30 Active 04013600 Problem Cervical radiculopathy M54.12 Active 26778200 ALLERGIES No Information ENCOUNTERS Encounter Location Date Diagnosis [facility] [id number] [address] Mar, [facility] [id number] [address] Mar, [facility] [address] [address] Mar, Cellulitis of left lower limb L03.116 ; BMI 50.0-59.9, adult Z68.43 and Acute nasopharyngitis J00 [facility] [id number] [place] [address] 71050- 3869 Feb, 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 ; Venous insufficiency I87.2 and BMI 50.0-59.9, adult Z68.43 [place] [address] [address]- 7533 Feb, Cellulitis of left lower extremity L03.116 and BMI 50.0-59.9 , adult Z68.43 [facility] [id number] [place] [address] 92079- 3023 Feb, [place] [address] 93880- 0676 January, [place] [address] [address]30- 2494 January, Medicare annual wellness visit, initial Z00.00 ; Morbid obesity E66.01 ; Mild intermittent asthma without complication J45.20 ; Bipolar disorder with severe depression F31.4 ; 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 ; Venous insufficiency I87.2 and Encounter for immunization Z23 [place] [id number] [place] [address] 49479- 1378 January, [place] [address] 09285- 1686 January, Cellulitis of left lower extremity L03.116 and BMI 50.0-59.9 , adult Z68.43 [place] [id number] [place] [address] 80490- 6069 Dec, Non-pressure chronic ulcer of left calf, 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 ; History of cellulitis Z87.2 and BMI 50.0-59.9, adult Z68.43 [facility] [id number] [place] [address] 94413 -9128 Dec, Cloudy urine R82.90 ; Cellulitis of lower extremity, unspecified laterality L03.119 and BMI 50.0-59.9, adult Z68.43 [place] [id number] [place] [address] 11122- 8861 13 Nov, 2017 Sleep apnea G47.[address] 23944- 3585 08 Nov, 2017 Bipolar affective disorder, currently depressed, mild F31.31 ; Methamphetamine use disorder, severe, 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 ; Cocaine use disorder, severe, 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 ; Alcohol use disorder, mild, abuse F10.10 and BMI 50.0-59.9, adult Z68.43 [place] [address] 84668- 6332 15 Oct, 2017 BMI 50.0-59.9, adult Z68.43 ; Bipolar affective disorder, currently depressed, mild F31.31 ; Methamphetamine use disorder, severe, 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 ; Cocaine use disorder, severe, 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 and Alcohol use disorder, mild, abuse F10.10 [place] [address] 50773- 2932 14 Oct, 2017 [place] [address] 71310- 8514 01 Oct, 2017 BMI 50.0-59.9, adult Z68.43 ; 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20 ; Cervical radiculopathy M54.12 ; Venous insufficiency I87.2 ; Morbid obesity E66.01 and BMI 50.0-59.9, adult Z68.43 [place] [id number] [place] [address] 11681- 0820 Jun, [facility] [id number] [place] [address] 46605- 8424 May, [place] [id number] [place] [address] 93131- 3567 Apr, [place] [address] 20932- 9635 Apr, 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 [facility] [address] [id number] Apr, [place] [id number] [place] [address] 87087- 6694 Apr, 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 [place] [id number] [place] [address] 14854- 8846 Apr, Cellulitis of left lower extremity L03.116 ; Localized edema R60.0 ; 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 and Bipolar disorder with severe depression F31.4 [facility] [id number] [place] [address] 92024- 0976 Apr, Cellulitis of unspecified part of limb L03.119 and 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 [facility] [id number] [place] [address] 59839- 0064 Mar, [facility] [id number] [place] [address] 20447 -5770 Mar, Cellulitis of left lower limb L03.116 [facility] [address] 78929- 0707 Mar, 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 and Cellulitis L03.90 [id number] [place] [address] 92038- 2206 Mar, Bronchitis J40 and Cellulitis L03.90 [place] [id number] [place] [address] 25322- 6690 January, [place] [address] 27714- 7860 January, [place] [id number] [place] [address] 49519- 6374 Nov, 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 ; Cellulitis L03.90 ; Obese E66.9 ; Pain in left shoulder M25.512 ; Localized edema R60.0 ; Sleep apnea G47.30 ; Anxiety about health F41.8 and Bipolar disorder with severe depression F31.4 [id number] [place] [address] 53579- 1269 Aug, Obese E66.9 ; 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 ; Sleep apnea G47.30 ; Cellulitis L03.90 ; Cellulitis of unspecified part of limb L03.119 ; Intractable tension-type headache, unspecified chronicity pattern G44.201 ; Concussion, without loss of consciousness, subsequent encounter S06.0X0D and Localized edema R60.0 [place] [id number] [place] [address] 56245- 9324 Jun, [place] [id number] [place] [address] 60238- 5552 Jun, 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 ; Other chronic pain G89.29 ; Cellulitis of unspecified part of limb L03.119 and Cutaneous abscess of limb, unspecified L02.419 [place] [id number] [place] [address] 25494- 7924 Jun, [place] [id number] [place] [address] 67824- 0015 May, [place] [address] [place] [address] 09795- 2376 May, [place] [id number] [place] [address] 39162- 9975 Apr, Impingement syndrome, shoulder, left M75.42 and SLAP lesion of left shoulder S43.432A [place] [id number] [place] [address] 63396- 1471 Apr, [place] [id number] [place] [address] 96786- 7250 Apr, [place] [id number] [place] [address] 81312- 8206 Apr, [place] [id number] [place] [address] 49438- 6822 Apr, Cellulitis L03.90 ; Obese E66.9 ; Pain in left shoulder M25.512 and Edema, unspecified type R60.9 [place] [id number] [place] [address] 14839- 1908 Mar, Obese E66.9 ; Pain in left shoulder M25.512 and Other chronic pain G89.29 [place] [id number] [place] [address] 25747- 7084 Feb, Anxiety about health F41.8 [place] [id number] [place] [address] 23258- 4030 Feb, Obese E66.9 ; 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 ; Shortness of breath R06.02 ; Palpitations R00.2 ; Bipolar disorder with severe depression F31.4 and 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 E40 [place] [address] [place] [address] 47122- 8442 Feb, Bipolar disorder with severe depression F31.4 [place] [id number] [place] [address] 88839- 2130 Feb, Injury of left shoulder and upper arm, initial encounter S49.92XA [facility] [id number] [place] [address] 71783- 4782 January, [facility] [id number] [place] [address] 06004- 5371 Dec, Bipolar disorder with severe depression F31.4 [place] [id number] [place] [address] 13375- 5491 Dec, Obese E66.9 ; 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 ; Sleep apnea G47.30 ; Anxiety about health F41.8 and Bipolar disorder with severe depression F31.4 [place] [id number] [place] [address] 08431- 1298 Dec, Bipolar disorder with severe depression F31.4 [place] [id number] [place] [address] 99636- 5107 Dec, Bipolar disorder with severe depression F31.4 and Other mcfp (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 Z79.899 [place] [id number] [place] [address] 74828- 6251 Nov, [place] [id number] [place] [address] 90101- 5659 Nov, [place] [id number] [place] [address] 95949- 2373 Nov, [facility] [id number] [place] [address] 44913- 2058 Nov, [facility] [id number] [place] [address] 19863- 0068 Nov, Bipolar disorder with severe depression F31.4 [facility] [id number] [place] [address] 90085- 5468 Nov, Bipolar disorder with severe depression F31.4 [facility] [id number] [place] [address] 32307- 1090 16 Nov, 2015 Anxiety about health F41.8 ; Obese E66.9 ; 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 ; Bipolar disorder with severe depression F31.4 and Family history of obesity Z83.49 [place] [id number] [place] [address] 21573- 1913 14 Nov, 2015 [place] [address] 03597- 4633 Nov, Obese E66.9 ; 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 ; Cellulitis L03.90 ; Palpitations R00.2 ; Sleep apnea G47.30 and Shortness of breath R06.02 [place] [address] 12204- 1158 Sep, UTI (urinary tract infection) N39.0 and Bronchitis J40 [place] [address] 45260- 5795 Sep, [place] [address] 95405- 4152 Mar, Left carpal tunnel syndrome 354.0 [place] [address] 74141- 4341 24 Feb, 2015 Cellulitis 682.9 and Ankle edema 782.3 [place] [id number] [place] [address] 27824- 0120 Feb, [place] [address] 58264- 2705 January, Carpal tunnel syndrome on left 354.0 [place] [address] 75942- 2919 January, Shoulder pain, left 719.41 [place] [address] 97226- 4440 January, [place] [address] 13390- 0435 Dec, [facility] [place] [facility] [address] [id number] [place] [address]- 3553 Dec, [facility] [place] [facility] [address] [id number] [place] [address]- 4294 Oct, [facility] [place] [facility] [address] [id number] [place] [address]- 6495 Oct, [facility] [place] [facility] [address] [id number] [place] [address]- 9454 Oct, [facility] [place] [facility] [address] [id number] [place] [address]- 3493 Oct, [facility] [place] [facility] [address] [id number] [place] [address]- 3817 Sep, [facility] [place] [facility] [address] [id number] [place] [address]- 7098 Sep, [facility] [place] [facility] [address] [id number] [place] [address]- 7115 Aug, [facility] [place] [facility] [address] [id number] [place] [address]- 9359 Aug, [facility] [place] [facility] [address] [id number] [place] [address]- 4491 Jun, [facility] [place] [facility] [address] [id number] [place] [address]- 1618 Jun, [facility] [place] [facility] [address] [id number] [address]- 8020 May, [facility] [place] [facility] [address] [id number] [place] [address]- 5310 May, [facility] [place] [facility] [address] [id number] [place] [address]- 4826 May, [facility] [place] [facility] [address] [id number] [place] [address]- 1159 May, [facility] [place] [facility] [address] [id number] [place] [address]- 6640 05 May, 2014 [facility] [place] [facility] [address] [id number] [place] [address]- 3244 May, [facility] [place] [facility] [address] [id number] [place] [address]- 7534 Apr, [facility] [place] [facility] [address] [id number] [place] [address]- 5804 Apr, [facility] [place] [facility] [address] [id number] [place] [address]- 9582 Apr, [facility] [place] [facility] [address] [id number] [place] [address]- 6421 Apr, [facility] [place] [facility] [address] [id number] [place] [address]- 2855 Apr, [facility] [place] [facility] [address] [id number] [place] [address]- 0096 Apr, [facility] [place] [facility] [address] [id number] [place] [address]- 1306 Apr, [facility] [place] [facility] [address] [id number] [place] [address]- 8457 Mar, [facility] [place] [facility] [address] [id number] [place] [address]- 3426 Mar, [facility] [place] [facility] [address] [id number] [place] [address]- 4236 Mar, [facility] [place] [facility] [address] [id number] [place] [address]- 6662 Mar, [facility] [place] [facility] [address] [id number] [place] [address]- 8448 Mar, [facility] [place] [facility] [address] [id number] [place] [address]- 5053 Mar, [facility] [place] [facility] [address] [id number] [place] [address]- 9895 Feb, [facility] [place] [facility] [address] [id number] [place] [address]- 1156 Feb, [facility] [place] [facility] [address] [id number] [place] [address]- 9216 Feb, [facility] [place] [facility] [address] [id number] [place] [address]- 1086 Feb, [facility] [place] [facility] [address] [id number] [place] [address]- 4345 January, [facility] [place] [facility] [address] [id number] [place] [address]- 1202 January, [facility] [place] [facility] [address] [id number] [place] [address]- 6264 January, [facility] [place] [facility] [address] [id number] [place] [address]- 5676 January, [facility] [place] [facility] [address] [id number] [place] [address]- 4271 January, [facility] [place] [facility] [address] [id number] [place] [address]- 6544 January, [facility] [place] [facility] [address] [id number] [place] [address]- 3916 January, [facility] [place] [facility] [address] [id number] [place] [address]- 3684 January, [facility] [place] [facility] [address] [id number] [place] [address]- 8142 January, [facility] [place] [facility] [address] [id number] [place] [address]- 4329 January, [facility] [place] [facility] [address] [id number] [place] [address]- 8612 January, [facility] [place] [facility] [address] [id number] [place] [address]- 3760 Dec, [facility] [place] [facility] [address] [id number] [place] [address]- 9476 Dec, [facility] [place] [facility] [address] [id number] [place] [address]- 2055 Dec, [facility] [place] [facility] [address] [id number] [place] 7942 Dec, [facility] [place] [facility] [address] [id number] [place] [address]- 0517 Nov, [facility] [place] [facility] [address] [id number] [place] [address]- 0337 Nov, [facility] [place] [facility] [address] [id number] [place] [address]- 5971 Oct, [facility] [place] [facility] [address] [id number] [place] [address]- 0068 Oct, [facility] [place] [facility] [address] [id number] [place] [address]- 1017 Oct, [facility] [place] [facility] [address] [id number] [place] [address]- 1776 Oct, [facility] [place] [facility] [address] [id number] [place] [address]- 5432 Sep, [facility] [place] [facility] [address] [id number] [place] [address]- 3473 Sep, [facility] [place] [facility] [address] [id number] [place] [address]- 2211 Sep, [facility] [place] [facility] [address] [id number] [place] [address]- 9071 Sep, [facility] [place] [facility] [address] [id number] [place] [address]- 6342 Sep, [facility] [place] [facility] [address] [id number] [place] [address]- 7512 Sep, [facility] [place] [facility] [address] [id number] [place] [address]- 2834 Aug, [facility] [place] [facility] [address] [id number] [place] [address]- 1543 24 Aug, 2013 [facility] [address] [id number] [place] 3488 Aug, [facility] [place] [facility] [address] [id number] [place] 6615 Aug, [facility] [address] [id number] [place] [address]- 7023 Aug, [facility] [place] [facility] [address] [id number] [place] [address]- 2916 Aug, [facility] [address] [id number] [place] [address]- 9174 Aug, [facility] [place] [facility] [address] [id number] [place] [address]- 8713 Aug, [facility] [place] [facility] [address] [id number] [place] [address]- 3141 Aug, [facility] [address] [id number] [place] [address]- 4917 Aug, [facility] [place] [facility] [address] [id number] [place] [address]- 1362 Jul, [facility] [address] [id number] [place] [address]- 0257 15 Jul, 2013 [facility] [place] [facility] [address] [id number] [place] [address]- 3263 Jul, [facility] [place] [facility] [address] [id number] [place] [address]- 8534 Jul, [facility] [place] [facility] [address] [id number] [place] [address]- 9410 Jun, [facility] [place] [facility] [address] [id number] [place] [address]- 3227 Jun, [facility] [place] [facility] [address] [id number] [place] [address]- 0760 Jun, [facility] [place] [facility] [address] [id number] [place] [address]- 2624 Jun, [facility] [place] [facility] [address] [id number] [place] [address]- 2706 Jun, [facility] [place] [facility] [address] [id number] [place] [address] May, [facility] [place] [facility] [address] [id number] [place] [address] May, [facility] [place] [facility] [address] [id number] [place] [address] Apr, [facility] [place] [facility] [address] [id number] [place] [address] Mar, [facility] [place] [facility] [address] [id number] [place] [address] Mar, [facility] [place] [facility] [address] [id number] [place] [address] Mar, [facility] [place] [facility] [address] [id number] [place] [address] Mar, [facility] [place] [facility] [address] [id number], [place] [address] Mar, [facility] [place] [facility] [address] [id number] [place] [address] Mar, [facility] [place] [facility] [address] [id number], [place] [address] Feb, [facility] [place] [facility] [address] [id number] [place] [address] Feb, [facility] [place] [facility] [address] [id number], [place] [address] 16 Feb, 2013 [facility] [place] [facility] [address] [id number] [place] [address] 15 Feb, 2013 [facility] [place] [facility] [address] [id number] [place] [address] 14 Feb, [address] [facility] [address] [id number] [place] [address] 13 Feb, 2013 [facility] [address] [id number] [place] [address]- [address] 11 Feb, 2013 [facility] [address] [id number] [place] [address] January, [facility] [address] [id number] [place] [address] January, [facility] [address] [id number] [place] [address] Nov, [facility] [address] [id number] [place] [address] Nov, [facility] [address] [id number] [place] [address] Nov, [facility] [address] [id number] [place] [address] Nov, [facility] [address] [id number] [place] [address] Oct, [facility] [address] [id number] [place] [address] [address] Oct, [facility] [address] [id number] [place] [address] Oct, [facility] [address] [id number] [place] [address] Sep, [facility] [place] [facility] [address] [id number] [place] [address] Sep, [facility] [place] [facility] [address] [id number] [place] [address] 15 Sep, 2012 [facility] [place] [facility] [address] [id number] [place] [address]- [address] Sep, [facility] [place] [facility] [address] [id number] [place] [address] Aug, [facility] [place] [facility] [address] [id number] [place] [address] Aug, [facility] [place] [facility] [address] [id number] [place] [address] Jul, [facility] [place] [facility] [address] [id number] [place] [address], [place] [address]- [address] Jul, [facility] [place] [facility] [address] [id number] [place] [address] Jun, [facility] [place] [facility] [address] [id number] [place] [address]- [address] Jun, [facility] [place] [facility] [address] [id number] [place] [address] Jun, [facility] [place] [facility] [address] [id number] [place] [address]- [address] Jun, [facility] [place] [facility] [address] [id number] [place] [address] Jun, [facility] [place] [facility] [address] [id number] [place] [address]- [address] Jun, [facility] [place] [facility] [address] [id number] [place] [address] Jun, [facility] [place] [facility] [address] [id number], [place] [address] Jun, [facility] [place] [facility] [address] [id number] [place] [address] Jun, [facility] [place] [facility] [address] [id number] [place] [address]- [address] Jun, [facility] [place] [facility] [address] [id number], [place] [address] Jun, [facility] [place] [facility] [address] [id number], [place] [address] Jun, [facility] [place] [facility] [address] [id number] [place] [address] Jun, [facility] [place] [facility] [address] [id number] [place] [address] Jun, [facility] [place] [facility] [address] [id number] [place] [address] Jun, [facility] [place] [facility] [address] [id number] [place] [address] Jun, [facility] [place] [facility] [address] [id number] [place] [address] 29 May, 2012 [facility] [place] [facility] [address] [id number] [place] [address] 26 May, 2012 [facility] [place] [facility] [address] [id number] [place] [address] 25 May, 2012 [facility] [place] [facility] [address] [id number] [place] [address] 24 May, 2012 [facility] [place] [facility] [address] [id number] [place] [address] May, [facility] [place] [facility] [address] [id number] [place] [address] Mar, [facility] [place] [facility] [address] [id number] [place] [address] Mar, [facility] [place] [facility] [address] [id number] [place] [address] Mar, [facility] [place] [facility] [address] [id number] [place] [address] 1998 Mar, [facility] [place] [facility] [address] [id number] [place] [address] Mar, [facility] [place] [facility] [address] [id number] [place] [address] Mar, [facility] [place] [facility] [address] [id number] [place] [address] Feb, [facility] [address] [id number] [place] [address] Feb, [facility] [place] [facility] [address] [id number] [place] [address] Feb, [facility] [address] [id number] [place] [address]- [address] Feb, [facility] [address] [id number] [place] [address] Feb, [facility] [address] [id number] [place] [address] January, [facility] [address] [id number] [place] [address] Dec, [facility] [address] [id number] [place] [address] Dec, [facility] [address] [id number] [place] [address] Dec, [facility] [address] [id number] [place] [address] Dec, [facility] [address] [id number] [place] [address] Dec, [facility] [address] [id number] [place] [address] Nov, [facility] [address] [id number] [place] [address] Oct, [facility] [place] [facility] [address] [id number] [place] [address] Sep, [facility] [address] [id number] [place] [address] Aug, [facility] [address] [id number] [place] [address] Jul, [facility] [address] [facility] [place] [id number], [place] [address] Jul, [facility] [address] [id number], [place] [address] Jul, [facility] [address] [facility] [place] [id number], [place] [address] Apr, [facility] [address] [id number], [place] [address] Apr, [facility] [address] [facility] [place] [id number], [place] [address] Apr, [facility] [address] [facility] [place] [id number], [place] [address] January, IMMUNIZATIONS No Known Immunizations SOCIAL HISTORY Never Assessed REASON FOR VISIT sleep study order PLAN OF CARE VITAL SIGNS MEDICATIONS Unknown [...] Hospitalization History Celluliti BLE-H 02/08/17 Hospitalization History Cellulitis-[facility] 04/22/17 Hospitalization History cellulitis-[facility] December 2017
--- OUTSIDE RECORDS SUMMARY | 2018-10-07 16:03 | XMS REPORT ---
Author Author CAROLYNE STARR Organization [facility] Address [address] [place] [address] Care Team Providers Care Tiller Man Name Role Phone CAROLYNE STARR Unavailable PROBLEMS Type Condition ICD9-CM Code NYS58-GO Code Onset Dates Condition Status SNOMED Code Problem Mild intermittent asthma without complication J45.20 Active 459201159 Problem Venous insufficiency I87.2 Active 86090320 Problem Morbid obesity E66.01 Active 556555141 Problem BMI 50.0-59.9, adult Z68.43 Active 913812324 Problem Bipolar affective disorder, currently depressed, mild F31.31 Active 478775839 Problem Methamphetamine use disorder, severe, 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 Active 37209335 Problem Cervical disc disease M50.90 Active 100611274 Problem Alcohol use disorder, mild, abuse F10.10 Active 37636341 Problem Cocaine use disorder, severe, 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 Active 53742978 Problem Bipolar disorder with severe depression F31.4 Active 601736050 Problem Pain in left shoulder M25.512 Active 96618028 Problem 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 069002192 Problem Sleep apnea G47.30 Active 46640310 Problem Cervical radiculopathy M54.12 Active 17094517 ALLERGIES No Information ENCOUNTERS Encounter Location Date Diagnosis [facility] [id number] [address] Mar, [facility] [address] [facility] [id number] [address] Feb, 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 ; Venous insufficiency I87.2 and BMI 50.0-59.9, adult Z68.43 [facility] [address] [facility] [id number] [address] Feb, Cellulitis of left lower extremity L03.116 and BMI 50.0-59.9 , adult Z68.43 [facility] [id number] [place] [address] 13560- 8881 Feb, [place] [address] [address]- [address] January, [place] [id number] [place] [address] 11634- 0554 January, Medicare annual wellness visit, initial Z00.00 ; Morbid obesity E66.01 ; Mild intermittent asthma without complication J45.20 ; Bipolar disorder with severe depression F31.4 ; 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 ; Venous insufficiency I87.2 and Encounter for immunization Z23 [place] [address] 8[address]89- [address]446 January, [place] [address] 54239- 6752 January, Cellulitis of left lower extremity L03.116 and BMI 50.0-59.9 , adult Z68.43 [place] [id number] [place] [address] 37610- 0578 10 Dec, 2017 Non-pressure chronic ulcer of left calf, 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 ; History of cellulitis Z87.2 and BMI 50.0-59.9, adult Z68.43 [facility] [id number] [place] [address] 49757 -5736 Dec, Cloudy urine R82.90 ; Cellulitis of lower extremity, unspecified laterality L03.119 and BMI 50.0-59.9, adult Z68.43 [place] [id number] [place] [address] 11033- 1618 Nov, Sleep apnea G47.30 [place] [id number] [place] [address] 61014- 2325 08 Nov, 2017 Bipolar affective disorder, currently depressed, mild F31.31 ; Methamphetamine use disorder, severe, 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 ; Cocaine use disorder, severe, 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 ; Alcohol use disorder, mild, abuse F10.10 and BMI 50.0-59.9, adult Z68.43 [place] [address] 29894- 9720 15 Oct, 2017 BMI 50.0-59.9, adult Z68.43 ; Bipolar affective disorder, currently depressed, mild F31.31 ; Methamphetamine use disorder, severe, 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 ; Cocaine use disorder, severe, 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 and Alcohol use disorder, mild, abuse F10.10 [place] [address] 62585- 1645 14 Oct, 2017 [place] [address] 03556- 8907 01 Oct, 2017 BMI 50.0-59.9, adult Z68.43 ; 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 and Morbid obesity E66.01 [facility] IN [facility] [address] [address] -[address]166 18 Sep, 2017 Acute suppurative otitis media of right ear without spontaneous rupture of tympanic membrane, recurrence not specified H66.001 and BMI 60.0-69.9, adult Z68.44 [place] [address] 32182- 0406 02 Sep, 2017 [place] [address] 03590- 8399 Aug, Cervical disc disease M50.90 [place] [address] 94414- 8235 Aug, [place] [address] 66583- 9266 Aug, Mild intermittent asthma without complication J45.20 ; Cervical radiculopathy M54.12 ; Venous insufficiency I87.2 ; Morbid obesity E66.01 and BMI 50.0-59.9, adult Z68.43 [place] [address] 84165- 4331 Jun, [facility] [address] [address] May, [facility] [address] [address] 06[address] Apr, [facility] [address] [address] 7955 Apr, 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 [facility] [id number] [place] [address] [id number] Apr, [facility] [address] [place] [address] 37292- 4471 Apr, 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 [facility] [address] [address]- 0623 Apr, Cellulitis of left lower extremity L03.116 ; Localized edema R60.0 ; 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 and Bipolar disorder with severe depression F31.4 [facility] [address] [address]- 6[address] Apr, Cellulitis of unspecified part of limb L03.119 and 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 [facility] [address] [address]- 0851 Mar, [facility] [address] [address] Mar, Cellulitis of left lower limb L03.116 [facility] [id number] [address]- 1624 Mar, 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 and Cellulitis L03.90 [facility] [address] [address]- 8830 Mar, Bronchitis J40 and Cellulitis L03.90 [facility] [address] [address]- 6573 January, [place] [id number] [place] [address] 23675- 1137 January, [place] [address] 24200- 8062 Nov, 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 ; Cellulitis L03.90 ; Obese E66.9 ; Pain in left shoulder M25.512 ; Localized edema R60.0 ; Sleep apnea G47.30 ; Anxiety about health F41.8 and Bipolar disorder with severe depression F31.4 [place] [id number] [place] [address] 58939- 9139 Aug, Obese E66.9 ; 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 ; Sleep apnea G47.30 ; Cellulitis L03.90 ; Cellulitis of unspecified part of limb L03.119 ; Intractable tension-type headache, unspecified chronicity pattern G44.201 ; Concussion, without loss of consciousness, subsequent encounter S06.0X0D and Localized edema R60.0 [place] [id number] [place] [address] 09514- 5772 Jun, [place] [address] 35631- 6776 Jun, 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 ; Other chronic pain G89.29 ; Cellulitis of unspecified part of limb L03.119 and Cutaneous abscess of limb, unspecified L02.419 [place] [id number] [place] [address] 80550- 7194 Jun, [place] [id number] [place] [address] 25793- 0856 May, [place] [address] 19642- 3296 May, [place] [id number] [place] [address] 36325- 6457 Apr, Impingement syndrome, shoulder, left M75.42 and SLAP lesion of left shoulder S43.432A [place] [id number] [place] [address] 16196- 1285 Apr, [place] [id number] [place] [address] 51288- 0271 Apr, [place] [id number] [place] [address] 30177- 0867 Apr, [place] [address] 55489- 0103 Apr, Cellulitis L03.90 ; Obese E66.9 ; Pain in left shoulder M25.512 and Edema, unspecified type R60.[address] 31400- 7494 Mar, Obese E66.9 ; Pain in left shoulder M25.512 and Other chronic pain G89.[address] 92056- 5223 Feb, Anxiety about health F41.[address] 94568- 2096 Feb, Obese E66.9 ; 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 ; Shortness of breath R06.02 ; Palpitations R00.2 ; Bipolar disorder with severe depression F31.4 and 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 E[id number] [place] [address] 41711- 7936 Feb, Bipolar disorder with severe depression F31.4 [address] [id number] [place] [address] 95171- 1754 Feb, Injury of left shoulder and upper arm, initial encounter S49.92XA [place] [id number] [place] [address] 74993- 0124 January, [place] [id number] [place] [address] 72267- 9300 Dec, Bipolar disorder with severe depression F31.4 [facility] [address] [address]- 0030 Dec, Obese E66.9 ; 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 ; Sleep apnea G47.30 ; Anxiety about health F41.8 and Bipolar disorder with severe depression F31.4 [facility] [address] [address]- 5944 Dec, Bipolar disorder with severe depression F31.4 [facility] [id number] [place] [address] 46591- 1298 Dec, Bipolar disorder with severe depression F31.4 and Other assisted (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 Z79.899 [facility] [id number] [place] [address] 51386- 3353 30 Nov, 2015 [facility] [id number] [place] [address] 86728- 1936 28 Nov, 2015 [facility] [id number] [place] [address] 14847- 7944 Nov, [facility] [id number] [place] [address] 58368- 2571 Nov, [facility] [id number] [place] [address] 66185- 1610 Nov, Bipolar disorder with severe depression F31.4 [facility] [address] [place] [address] 38927- 2454 17 Nov, 2015 Bipolar disorder with severe depression F31.4 [facility] [address] [place] [address] 06007- 6462 16 Nov, 2015 Anxiety about health F41.8 ; Obese E66.9 ; 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 ; Bipolar disorder with severe depression F31.4 and Family history of obesity Z83.49 [facility] [address] [address]- 2340 14 Nov, 2015 [facility] [address] [place] [address]- 6121 Nov, Obese E66.9 ; 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 ; Cellulitis L03.90 ; Palpitations R00.2 ; Sleep apnea G47.30 and Shortness of breath R06.02 [facility] [id number] [place] [address] 25353- 9901 Sep, UTI (urinary tract infection) N39.0 and Bronchitis J40 [facility] [id number] [place] [address] 43319- 7063 Sep, [facility] [address] 64783- 0132 Mar, Left carpal tunnel syndrome 354.0 [place] [id number] [place] [address] 89985- 4526 Feb, Cellulitis 682.9 and Ankle edema 782.3 [place] [address] 03910- 5471 Feb, [facility] [id number] [place] [address] 99689- 8192 January, Carpal tunnel syndrome on left 354.0 [place] [id number] [place] [address] 52217- 9095 January, Shoulder pain, left 719.41 [place] [id number] [place] [address] 96622- 4335 January, [facility] [id number] [place] [address] 06212- 8746 Dec, [place] [address] 45563- 3593 Dec, [facility] [id number] [place] [address] 45592- 6879 Oct, [facility] [id number] [place] [address] 87341- 5410 Oct, [facility] [place] [facility] [address] [id number] [place] [address]- 0945 Oct, [facility] [place] [facility] [address] [id number] [place] [address]- 5616 Oct, [facility] [place] [facility] [address] [id number] [place] [address]- 6619 Sep, [facility] [place] [facility] [address] [id number] [place] [address]- 2579 Sep, [facility] [place] [facility] [address] [id number] [place] [address]- 2048 Aug, [facility] [place] [facility] [address] [id number] [place] [address]- 9851 Aug, [facility] [place] [facility] [address] [id number] [place] [address]- 4623 Jun, [facility] [place] [facility] [address] [id number] [place] [address]- 8191 Jun, [facility] [place] [facility] [address] [id number] [place] [address]- 4419 May, [facility] [place] [facility] [address] [id number] [place] [address]- 5454 May, [facility] [place] [facility] [address] [id number] [place] [address]- 2542 May, [facility] [place] [facility] [address] [id number] [address]- 5161 May, [facility] [place] [facility] [address] [id number] [place] [address] 2545 May, [facility] [place] [facility] [address] [id number] [place] [address]- 2541 May, [facility] [place] [facility] [address] [id number] [place] [address]- 9289 Apr, [facility] [place] [facility] [address] [id number] [place] [address]- 4781 Apr, [facility] [place] [facility] [address] [id number] [place] [address]- 3684 Apr, [facility] [place] [facility] [address] [id number] [place] [address]- 9289 Apr, [facility] [place] [facility] [address] [id number] [place] [address]- 3781 Apr, [facility] [place] [facility] [address] [id number] [place] [address]- 8106 Apr, [facility] [place] [facility] [address] [id number] [place] [address]- 8862 Apr, [facility] [place] [facility] [address] [id number] [place] [address]- 8252 Mar, [facility] [place] [facility] [address] [id number] [place] [address]- 6889 Mar, [facility] [place] [facility] [address] [id number] [place] [address]- 2265 Mar, [facility] [place] [facility] [address] [id number] [place] [address]- 1458 Mar, [facility] [place] [facility] [address] [id number] [place] [address]- 5902 Mar, [facility] [place] [facility] [address] [id number] [place] [address]- 6015 Mar, [facility] [place] [facility] [address] [id number] [place] [address]- 8485 Feb, [facility] [place] [facility] [address] [id number] [place] [address]- 6059 Feb, [facility] [place] [facility] [address] [id number] [place] [address]- 2024 Feb, [facility] [place] [facility] [address] [id number] [place] [address]- 3424 Feb, [facility] [place] [facility] [address] [id number] [place] [address]- 6004 January, [facility] [place] [facility] [address] [id number] [place] [address]- 3400 January, [facility] [place] [facility] [address] [id number] [place] [address]- 7056 January, [facility] [place] [facility] [address] [id number] [place] [address]- 8999 January, [facility] [place] [facility] [address] [id number] [place] [address]- 1794 January, [facility] [place] [facility] [address] [id number] [place] [address]- 8552 January, [facility] [place] [facility] [address] [id number] [place] [address]- 2226 January, [facility] [place] [facility] [address] [id number] [place] [address]- 1632 January, [facility] [place] [facility] [address] [id number] [place] [address]- 4934 January, [facility] [place] [facility] [address] [id number] [place] [address]- 1132 January, [facility] [place] [facility] [address] [id number] [place] [address]- 8221 January, [facility] [place] [facility] [address] [id number] [place] [address]- 1367 Dec, [facility] [place] [facility] [address] [id number] [place] [address]- 7488 Dec, [facility] [place] [facility] [address] [id number] [place] [address]- 8410 Dec, [facility] [place] [facility] [address] [id number] [place] [address]- 6732 Dec, [facility] [place] [facility] [address] [id number] [place] [address]- 9720 Nov, [facility] [place] [facility] [address] [id number] [place] [address]- 9601 Nov, [facility] [place] [facility] [address] [id number] [place] [address]- 0166 Oct, [facility] [place] [facility] [address] [id number] [place] [address]- 7796 Oct, [facility] [place] [facility] [address] [id number] [place] [address]- 8267 Oct, [facility] [place] [facility] [address] [id number] [place] [address]- 9828 Oct, [facility] [place] [facility] [address] [id number] [place] [address]- 5528 Sep, [facility] [place] [facility] [address] [id number] [place] [address]- 7713 Sep, [facility] [place] [facility] [address] [id number] [place] [address]- 0299 Sep, [facility] [place] [facility] [address] [id number] [place] [address]- 2939 Sep, [facility] [place] [facility] [address] [id number] [place] [address]- 1158 Sep, [facility] [place] [facility] [address] [id number] [place] [address]- 4745 Sep, [facility] [place] [facility] [address] [id number] [place] [address]- 1764 Aug, [facility] [place] [facility] [address] [id number] [place] [address]- 4607 Aug, [facility] [place] [facility] [address] [id number] [place] [address]- 9966 Aug, [facility] [place] [facility] [address] [id number] [place] [address]- 3063 Aug, [facility] [place] [facility] [address] [id number] [place] [address]- 9080 Aug, [facility] [address] [id number] [place] [address]- 9957 Aug, [facility] [place] [facility] [address] [id number] [place] [address]- 7943 Aug, [facility] [address] [id number] [place] [address]- 7005 Aug, [facility] [address] [id number] [place] [address]- 5376 Aug, [facility] [address] [id number] [place] [address]- 4163 Aug, [facility] [address] [id number] [place] [address]- 5381 Jul, [facility] [address] [id number] [place] [address]- 5175 Jul, [facility] [address] [id number] [place] [address]- 3282 Jul, [facility] [address] [id number] [place] [address]- 2558 Jul, [facility] [address] [id number] [place] [address]- 3153 Jun, [facility] [place] [facility] [address] [id number] [place] [address]- 6785 Jun, [facility] [address] [id number] [place] [address]- 7127 Jun, [facility] [place] [facility] [address] [id number] [place] [address]- 6065 Jun, [facility] [place] [facility] [address] [id number] [place] [address]- 9526 Jun, [facility] [place] [facility] [address] [id number] [place] [address]- 0338 May, [facility] [place] [facility] [address] [id number] [place] [address]- 8393 13 May, 2013 [facility] [place] [facility] [address] [id number] [place] [address]- 4779 Apr, [facility] [place] [facility] [address] [id number] [place] [address]- 9716 Mar, [facility] [place] [facility] [address] [id number] [place] [address]- 2605 Mar, [facility] [place] [facility] [address] [id number] [place] [address]- 0949 Mar, [facility] [place] [facility] [address] [id number] [place] [address]- 6352 Mar, [facility] [place] [facility] [address] [id number] [place] [address]- 5234 Mar, [facility] [place] [facility] [address] [id number] [place] [address]- 4829 Mar, [facility] [place] [facility] [address] [id number] [place] [address]- 6802 18 Feb, 2013 [facility] [place] [facility] [address] [id number] [place] [address]- 0542 18 Feb, 2013 [facility] [place] [facility] [address] [id number] [place] [address]- 6499 16 Feb, 2013 [facility] [place] [facility] [address] [id number] [place] [address]- 8646 15 Feb, 2013 [facility] [place] [facility] [address] [id number] [place] [address]- 0991 14 Feb, 2013 [facility] [place] [facility] [address] [id number] [place] [address]- 0399 13 Feb, 2013 [facility] [place] [facility] [address] [id number] [place] [address] 11 Feb, 2013 [facility] [place] [facility] [address] [id number] [place] [address] January, [facility] [address] [id number] [place] [address] January, [facility] [address] [id number] [place] [address] Nov, [facility] [address] [id number] [place] [address] Nov, [facility] [place] [facility] [address] [id number] [place] [address] Nov, [facility] [address] [id number] [place] [address] Nov, [facility] [address] [id number] [place] [address] Oct, [facility] [address] [id number] [place] [address] Oct, [facility] [address] [id number] [place] [address] Oct, [facility] [address] [id number] [place] [address] Sep, [facility] [address] [id number] [place] [address] Sep, [facility] [address] [id number] [place] [address] Sep, [facility] [address] [id number] [place] [address]- [address] Sep, [facility] [place] [facility] [address] [id number] [place] [address]- [address] Aug, [facility] [place] [facility] [address] [id number] [place] [address]- [address] Aug, [facility] [address] [id number] [place] [address] Jul, [facility] [place] [facility] [address] [id number] [place] [address] Jul, [facility] [place] [facility] [address] [id number] [place] [address] Jun, [facility] [place] [facility] [address] [id number] [place] [address]- [address]66 Jun, [facility] [place] [facility] [address] [id number] [place] [address]- [address] Jun, [facility] [place] [facility] [address] [id number] [place] [address]- [address] Jun, [facility] [place] [facility] [address] [id number] [place] [address]- [address] Jun, [facility] [place] [facility] [address] [id number] [place] [address]- [address] Jun, [facility] [place] [facility] [address] [id number] [place] [address]- 138[address] Jun, [facility] [place] [facility] [address] [id number] [place] [address]- [address] Jun, [facility] [place] [facility] [address] [id number] [place] [address]- [address] Jun, [facility] [place] [facility] [address] [id number] [place] [address]- [address] Jun, [facility] [place] [facility] [address] [id number] [place] [address] Jun, [facility] [place] [facility] [address] [id number] [place] [address]- [address]60 Jun, [facility] [place] [facility] [address] [id number] [place] [address] 18 Jun, 2012 [facility] [place] [facility] [address] [id number] [place] [address] 17 Jun, 2012 [facility] [place] [facility] [address] [id number] [place] [address] Jun, [facility] [place] [facility] [address] [id number] [place] [address] Jun, [facility] [place] [facility] [address] [id number] [place] [address]- [address]36 29 May, 2012 [facility] [place] [facility] [address] [id number] [place] [address] May, [facility] [place] [facility] [address] [id number] [place] [address]- [address]646 May, [facility] [place] [facility] [address] [id number] [place] [address]- [address] May, [facility] [place] [facility] [address] [id number] [place] [address]- [address] May, [facility] [place] [facility] [address] [id number] [place] [address] Mar, [facility] [place] [facility] [address] [id number] [place] [address] Mar, [facility] [place] [facility] [address] [id number] [place] [address] Mar, [facility] [place] [facility] [address] [id number] [place] [address] Mar, [facility] [place] [facility] [address] [id number] [place] [address] Mar, [facility] [place] [facility] [address] [id number] [place] [address] Mar, [facility] [place] [facility] [address] [id number] [place] [address] Feb, [facility] [place] [facility] [address] [id number] [place] [address] Feb, [facility] [place] [facility] [address] [id number] [place] [address] Feb, [facility] [place] [facility] [address] [id number] [place] [address] Feb, [facility] [address] [id number] [place] [address] Feb, [facility] [place] [facility] [address] [id number] [place] [address] January, [facility] [address] [id number] [place] [address] Dec, [facility] [address] [id number] [place] [address] Dec, [facility] [address] [id number] [place] [address] Dec, [facility] [address] [id number] [place] [address] Dec, [facility] [address] [id number] [place] [address] Dec, [facility] [address] [id number] [place] [address] Nov, [facility] [address] [id number] [place] [address] Oct, [facility] [address] [id number] [place] [address] Sep, [facility] [address] [id number] [place] [address] Aug, [facility] [address] [id number] [place] [address] Jul, [facility] [place] [facility] [address] [id number] [place] [address] Jul, [facility] [place] [facility] [address] [id number] [place] [address] Jul, [facility] [address] [id number] [place] [address] Apr, [facility] [address] [facility] [id number] [place] [address] Apr, [facility] [address] [facility] [id number] [place] [address] Apr, [facility] [address] [facility] [id number] [place] [address] January, IMMUNIZATIONS No Known Immunizations SOCIAL HISTORY Never Assessed REASON FOR VISIT Needs referral PLAN OF CARE VITAL SIGNS MEDICATIONS Unknown [...] bronchitis ER visit -04/15-06-30 Hospitalization History Celluliti BLE-[facility] 02/08/17 Hospitalization History Cellulitis-[facility] 04/22/17 Hospitalization History cellulitis-[facility] December 2017
--- OUTSIDE RECORDS SUMMARY | 2018-10-07 16:03 | XMS REPORT ---
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 Name Role Phone CAROLYNE STARR Unavailable PROBLEMS Type Condition ICD9-CM Code USN47-GT Code Onset Dates Condition Status SNOMED Code Problem Cervical radiculopathy M54.12 Active 24086850 Problem Morbid obesity E66.01 Active 011666892 Problem Mild intermittent asthma without complication J45.20 Active 615142528 Problem Sleep apnea G47.30 Active 30687441 Problem Bipolar disorder with severe depression F31.4 Active 960711481 Problem Pain in left shoulder M25.512 Active 20329750 Problem 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 654726500 Problem Bipolar affective disorder, currently depressed, mild F31.31 Active 142190135 Problem Alcohol use disorder, mild, abuse F10.10 Active 72547960 Problem Cervical disc disease M50.90 Active 426936144 Problem Venous insufficiency I87.2 Active 58722942 Problem Cocaine use disorder, severe, 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20 ; Bipolar disorder with severe depression F31.4 ; 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 ; Alcohol use disorder, mild, abuse F10.10 and BMI 50.0-59.9, adult Z68.43 [place] [address] [place] [id number] [place] [address] 42215- 5426 15 Oct, 2017 BMI 50.0-59.9, adult Z68.43 ; Bipolar affective disorder, currently depressed, mild F31.31 ; Methamphetamine use disorder, severe, 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 [address] [place] [address] 74310 -4415 Sep, Acute suppurative otitis media of right ear without spontaneous rupture of tympanic membrane, recurrence not specified H66.001 and BMI 60.0-69.9, adult Z68.44 [facility] [address] [place] [id number] [place] [address] 26468- 2816 Sep, [facility] [address] [place] [id number] [place] [address] 74140- 8277 Aug, Cervical disc disease M50.90 [facility] [address] [place] [id number] [place] [address] 58808- 9884 Aug, [facility] [address] [place] [id number] [place] [address] 10228- 7685 Aug, Mild intermittent asthma without complication J45.20 ; Cervical radiculopathy M54.12 ; Venous insufficiency I87.2 ; Morbid obesity E66.01 and BMI 50.0-59.9, adult Z68.43 [facility] [address] [place] [id number] [place] [address] 72155- 7200 Jun, [facility] [address] [place] [id number] [place] [address] 59423- 1794 May, [facility] [address] [place] [id number] [place] [address] 86126- 6763 Apr, [facility] [address] 13519- 5484 Apr, 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 [facility] [address] [place] [id number] [place] [address] [id number] Apr, [facility] [address] 27774- 2165 Apr, 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 and Cellulitis L03.90 [facility] [address] [place] [id number] [place] [address] 30505- 0825 Mar, Bronchitis J40 and Cellulitis L03.90 [facility] [address] [place] [address] [id number] [place] [address] 59497- 2272 January, [facility] [address] [place] [id number] [place] [address] 27986- 7250 January, [facility] [address] [place] [id number] [place] [address] 15157- 9509 Nov, 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 ; Cellulitis L03.90 ; Obese E66.9 ; Pain in left shoulder M25.512 ; Localized edema R60.0 ; Sleep apnea G47.30 ; Anxiety about health F41.8 and Bipolar disorder with severe depression F31.4 [facility] [address] [address]- 5684 Aug, Obese E66.9 ; 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 ; Sleep apnea G47.30 ; Cellulitis L03.90 ; Cellulitis of unspecified part of limb L03.119 ; Intractable tension-type headache, unspecified chronicity pattern G44.201 ; Concussion, without loss of consciousness, subsequent encounter S06.0X0D and Localized edema R60.0 [place] [address] [place] [id number] [place] [address] 42012- 5566 Jun, [place] [address] 88273- 9693 Jun, 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 ; Other chronic pain G89.29 ; Cellulitis of unspecified part of limb L03.119 and Cutaneous abscess of limb, unspecified L02.419 [place] [address] [place] [id number] [place] [address] 16323- 8696 Jun, [place] [address] [place] [id number] [place] [address] 47881- 5245 May, [place] [address] [place] [id number] [place] [address] 19664- 6709 May, [place] [address] [place] [id number] [place] [address] 84577- 6083 Apr, Impingement syndrome, shoulder, left M75.42 and SLAP lesion of left shoulder S43.432A [place] [address] [place] [id number] [place] [address] 03941- 2750 Apr, [place] [address] [place] [id number] [place] [address] 91945- 3428 Apr, [place] [address] [place] [id number] [place] [address] 97024- 8428 Apr, [place] [address] [place] [id number] [place] [address] 76550- 0278 Apr, Cellulitis L03.90 ; Obese E66.9 ; Pain in left shoulder M25.512 and Edema, unspecified type R60.9 [place] [address] [place] [address] 44230- 7713 Mar, Obese E66.9 ; Pain in left shoulder M25.512 and Other chronic pain G89.29 [place] [address] [place] [id number] [place] [address] 53649- 0236 Feb, Anxiety about health F41.8 [place] [address] [place] [id number] [place] [address] 44072- 8207 Feb, Obese E66.9 ; 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 ; Shortness of breath R06.02 ; Palpitations R00.2 ; Bipolar disorder with severe depression F31.4 and 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 E40 [place] [address] [place] [id number] [place] [address] 99660- 1216 Feb, Bipolar disorder with severe depression F31.4 [place] [address] 27487- 4357 Feb, Injury of left shoulder and upper arm, initial encounter S49.92XA [place] [address] [place] [id number] [place] [address] 07587- 9749 January, [place] [address] 32815- 0945 Dec, Bipolar disorder with severe depression F31.4 [place] [address] [place] [id number] [place] [address] 90131- 9515 Dec, Obese E66.9 ; 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 ; Sleep apnea G47.30 ; Anxiety about health F41.8 and Bipolar disorder with severe depression F31.4 [place] [address] 65374- 9953 Dec, Bipolar disorder with severe depression F31.4 [place] [address] [place] [id number] [place] [address] 82708- 6097 Dec, Bipolar disorder with severe depression F31.4 and Other jail (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 Z79.899 [place] [address] [address]- 6341 30 Nov, 2015 [facility] [address] [place] [id number] [place] [address] 71143- 2991 Nov, [facility] [address] [place] [id number] [place] [address] 67235- 1809 Nov, [facility] [address] [place] [id number] [place] [address] 81010- 6432 Nov, [place] [address] [place] [id number] [place] [address] 77198- 7425 Nov, Bipolar disorder with severe depression F31.4 [place] [address] [place] [id number] [place] [address] 32210- 1770 17 Nov, 2015 Bipolar disorder with severe depression F31.4 [place] [address] [place] [id number] [place] [address] 00948- 6477 16 Nov, 2015 Anxiety about health F41.8 ; Obese E66.9 ; 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 ; Bipolar disorder with severe depression F31.4 and Family history of obesity Z83.49 [place] [address] [place] [id number] [place] [address] 44374- 2000 14 Nov, 2015 [place] [address] [place] [address] 87510- 2012 Nov, Obese E66.9 ; 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 ; Cellulitis L03.90 ; Palpitations R00.2 ; Sleep apnea G47.30 and Shortness of breath R06.02 [place] [address] [place] [address] 27344- 1289 Sep, UTI (urinary tract infection) N39.0 and Bronchitis J40 [place] [address] [place] [address] 36970- 5733 Sep, [place] [address] [place] [id number] [place] [address] 16556- 4779 Mar, Left carpal tunnel syndrome 354.0 [facility] [address] [address]- 8381 Feb, Cellulitis 682.[address]82.3 [facility] [address] [id number] [address]- 8040 Feb, [facility] [address] [place] [id number] [place] [address] 99435- 5781 January, Carpal tunnel syndrome on left 354.0 [facility] [address] [address]- 6169 January, Shoulder pain, left 719.41 [facility] [address] [place] [id number] [address]- 4168 January, [facility] [address] [place] [id number] [place] [address] 78913- 8508 Dec, [facility] [address] [address]- 3823 Dec, [facility] [address] [address]- 5678 Oct, [facility] [address] [address]- 2152 Oct, [facility] [address] [address]- 5401 Oct, [facility] [address] [address]- 8129 Oct, [facility] [address] [address]- 6791 Sep, [facility] [address] [address]- 9475 Sep, [facility] [address] [address]- 4822 Aug, [facility] [place] [facility] [address] [id number] [place] [address]- 7062 08 Aug, 2014 [facility] [place] [facility] [address] [id number] [place] [address]- 6354 Jun, [facility] [place] [facility] [address] [id number] [place] [address]- 2296 Jun, [facility] [place] [facility] [address] [id number] [place] [address]- 4520 May, [facility] [place] [facility] [address] [id number] [place] [address]- 9262 May, [facility] [place] [facility] [address] [id number] [place] [address]- 0289 May, [facility] [place] [facility] [address] [id number] [place] [address]- 5196 May, [facility] [place] [facility] [address] [id number] [place] [address]- 8915 May, [facility] [place] [facility] [address] [id number] [place] [address]- 6956 05 May, 2014 [facility] [place] [facility] [address] [id number] [place] [address]- 3491 Apr, [facility] [place] [facility] [address] [id number] [place] [address]- 0667 Apr, [facility] [place] [facility] [address] [id number] [place] [address]- 7320 Apr, [facility] [place] [facility] [address] [id number] [place] [address]- 5049 Apr, [facility] [place] [facility] [address] [id number] [place] [address]- 8640 Apr, [facility] [place] [facility] [address] [id number] [place] [address]- 0229 Apr, [facility] [place] [facility] [address] [id number] [place] [address]- 7988 Apr, [facility] [place] [facility] [address] [id number] [place] [address]- 5227 Mar, [facility] [place] [facility] [address] [id number] [place] [address]- 0531 Mar, [facility] [place] [facility] [address] [id number] [place] [address]- 4666 Mar, [facility] [place] [facility] [address] [id number] [place] [address]- 3423 Mar, [facility] [place] [facility] [address] [id number] [place] [address]- 8604 Mar, [facility] [place] [facility] [address] [id number] [place] [address]- 9640 Mar, [facility] [place] [facility] [address] [id number] [place] [address]- 8796 Feb, [facility] [place] [facility] [address] [id number] [place] [address]- 2727 Feb, [facility] [place] [facility] [address] [id number] [place] [address]- 5185 Feb, [facility] [place] [facility] [address] [id number] [place] [address]- 0266 Feb, [facility] [place] [facility] [address] [id number] [place] [address]- 0168 January, [facility] [place] [facility] [address] [id number] [place] [address]- 5500 January, [facility] [place] [facility] [address] [id number] [place] [address]- 0636 January, [facility] [place] [facility] [address] [id number] [place] [address]- 5428 January, [facility] [place] [facility] [address] [id number] [place] [address]- 0425 January, [facility] [place] [facility] [address] [id number] [place] [address]- 9347 January, [facility] [place] [facility] [address] [id number] [place] [address]- 6602 January, [facility] [place] [facility] [address] [id number] [place] [address]- 8752 January, [facility] [place] [facility] [address] [id number] [place] [address]- 0180 January, [facility] [place] [facility] [address] [id number] [place] [address]- 5232 January, [facility] [place] [facility] [address] [id number] [place] [address]- 1205 January, [facility] [place] [facility] [address] [id number] [place] [address]- 8451 Dec, [facility] [place] [facility] [address] [id number] [place] [address]- 6092 Dec, [facility] [place] [facility] [address] [id number] [place] [address]- 5906 Dec, [facility] [place] [facility] [address] [id number] [place] [address]- 8386 Dec, [facility] [place] [facility] [address] [facility] [id number] [place] [address]- 7343 Nov, [facility] [place] [facility] [address] [id number] [place] [address]- 2617 Nov, [facility] [place] [facility] [address] [id number] [place] [address]- 0048 Oct, [facility] [place] [facility] [address] [id number] [place] [address]- 3102 Oct, [facility] [place] [facility] [address] [id number] [place] [address]- 1652 Oct, [facility] [place] [facility] [address] [id number] [place] [address]- 2204 Oct, [facility] [place] [facility] [address] [id number] [place] [address]- 1803 Sep, [facility] [place] [facility] [address] [id number] [place] [address]- 8416 Sep, [facility] [place] [facility] [address] [id number] [place] [address]- 6837 Sep, [facility] [place] [facility] [address] [id number] [place] [address]- 8236 Sep, [facility] [place] [facility] [address] [id number] [place] [address]- 4952 Sep, [facility] [place] [facility] [address] [id number] [place] [address]- 9856 Sep, [facility] [place] [facility] [address] [id number] [place] [address]- 2391 Aug, [facility] [place] [facility] [address] [id number] [place] [address]- 0091 Aug, [facility] [place] [facility] [address] [id number] [place] [address]- 1602 Aug, [facility] [place] [facility] [address] [id number] [place] [address]- 8131 Aug, [facility] [place] [facility] [address] [id number] [place] [address]- 4296 Aug, [facility] [place] [facility] [address] [id number] [place] [address]- 8646 Aug, [facility] [place] [facility] [address] [id number] [place] [address]- 3589 Aug, [facility] [place] [facility] [address] [id number] [place] [address]- 0666 Aug, [facility] [place] [facility] [address] [id number] [place] [address]- 9696 Aug, [facility] [place] [facility] [address] [id number] [place] [address]- 7050 Aug, [facility] [place] [facility] [address] [id number] [place] [address]- 8622 Jul, [facility] [place] [facility] [address] [id number] [address]- 2193 Jul, [facility] [place] [facility] [address] [id number] [place] [address]- 6763 Jul, [facility] [place] [facility] [address] [id number] [place] [address]- 6514 Jul, [facility] [place] [facility] [address] [id number] [place] [address]- 9305 Jun, [facility] [place] [facility] [address] [id number] [place] [address]- 0318 Jun, [facility] [place] [facility] [address] [id number] [place] [address]- 4057 Jun, [facility] [place] [facility] [address] [id number] [place] [address]- 6188 Jun, [facility] [place] [facility] [address] [facility] [id number] [place] [address]- 0915 Jun, [facility] [place] [facility] [address] [facility] [id number] [place] [address]- 5844 May, [facility] [place] [facility] [address] [id number] [address]- 7515 May, [facility] [place] [facility] [address] [id number] [place] [address]- 4882 Apr, [facility] [place] [facility] [address] [id number] [place] [address]- 3512 Mar, [facility] [place] [facility] [address] [id number] [place] [address]- 9382 Mar, [facility] [place] [facility] [address] [facility] [id number] [place] [address] Mar, [facility] [place] [facility] [address] [id number] [place] [address] 09 Mar, 2013 [facility] [place] [facility] [address] [id number] [place] [address] 05 Mar, 2013 [facility] [place] [facility] [address] [id number] [place] [address] Mar, [facility] [place] [facility] [address] [id number] [place] [address] 18 Feb, 2013 [facility] [place] [facility] [address] [id number] [place] [address] 18 Feb, 2013 [facility] [place] [facility] [address] [id number] [place] [address] 16 Feb, 2013 [facility] [place] [facility] [address] [id number] [place] [address] 15 Feb, 2013 [facility] [place] [facility] [address] [id number] [place] [address] 14 Feb, 2013 [facility] [place] [facility] [address] [id number] [place] [address] Feb, [facility] [place] [facility] [address] [id number] [place] [address] Feb, [facility] [place] [facility] [address] [id number] [place] [address] January, [facility] [place] [facility] [address] [id number] [place] [address] January, [facility] [place] [facility] [address] [id number] [place] [address] Nov, [facility] [place] [facility] [address] [id number] [place] [address] Nov, [facility] [place] [facility] [address] [id number] [place] [address] Nov, [facility] [place] [facility] [address] [id number] [place] [address] Nov, [facility] [place] [facility] [address] [id number] [place] [address] Oct, [facility] [place] [facility] [address] [id number] [place] [address] Oct, [facility] [place] [facility] [address] [facility] [id number] [place] [address] Oct, [facility] [place] [facility] [address] [id number] [place] [address] Sep, [facility] [place] [facility] [address] [id number] [place] [address] Sep, [facility] [place] [facility] [address] [id number] [place] [address] Sep, [facility] [place] [facility] [address] [id number] [place] [address] Sep, [facility] [place] [facility] [address] [id number] [place] [address] Aug, [facility] [place] [facility] [address] [id number] [place] [address] Aug, [facility] [place] [facility] [address] [id number] [place] [address] Jul, [facility] [place] [facility] [address] [id number] [place] [address] Jul, [facility] [place] [facility] [address] [id number] [place] [address] Jun, [facility] [place] [facility] [address] [id number] [place] [address] Jun, [facility] [place] [facility] [address] [facility] [id number] [place] [address] Jun, [facility] [place] [facility] [address] [facility] [id number] [place] [address] Jun, [facility] [place] [facility] [address] [id number] [place] [address] Jun, [facility] [address] [id number] [place] [address] Jun, [facility] [place] [facility] [address] [id number] [place] [address] 286[address] Jun, [facility] [address] [id number] [place] [address]47 Jun, [facility] [place] [facility] [address] [id number] [place] [address] Jun, [facility] [address] [id number] [place] [address], [place] [address]- [address] Jun, [facility] [address] [id number] [place] [address] Jun, [facility] [place] [facility] [address] [id number] [place] [address] Jun, [facility] [address] [id number] [place] [address] 18 Jun, 2012 [facility] [place] [facility] [address] [facility] [id number] [place] [address] Jun, [facility] [address] [facility] [id number] [place] [address]- [address] Jun, [facility] [place] [facility] [address] [id number] [place] [address] Jun, [facility] [place] [facility] [address] [id number] [place] [address] 29 May, 2012 [facility] [place] [facility] [address] [id number] [place] [address] 26 May, 2012 [facility] [place] [facility] [address] [facility] [id number] [place] [address] 25 May, 2012 [facility] [place] [facility] [address] [id number] [place] [address] May, [facility] [place] [facility] [address] [id number] [place] [address] May, [facility] [place] [facility] [address] [id number] [place] [address] Mar, [facility] [place] [facility] [address] [id number] [place] [address] Mar, [facility] [place] [facility] [address] [id number] [place] [address] Mar, [facility] [place] [facility] [address] [id number] [place] [address] Mar, [facility] [place] [facility] [address] [id number] [place] [address] Mar, [facility] [place] [facility] [address] [id number] [place] [address] Mar, [facility] [place] [facility] [address] [id number] [place] [address] Feb, [facility] [place] [facility] [address] [id number] [place] [address] Feb, [facility] [place] [facility] [address] [id number] [place] [address] Feb, [facility] [place] [facility] [address] [id number] [place] [address] Feb, [facility] [place] [facility] [address] [id number] [address] Feb, [facility] [place] [facility] [address] [id number] [place] [address] January, [facility] [place] [facility] [address] [id number] [place] [address] Dec, [facility] [place] [facility] [address] [id number] [place] [address] Dec, [facility] [place] [facility] [address] [id number] [place] [address] Dec, [facility] [id number] [address] Dec, [facility] [id number] [address] Dec, [facility] [id number] [address] Nov, [facility] [id number] [address] Oct, [facility] [id number] [address] Sep, [facility] [id number] [address] Aug, [facility] [id number] [address] Jul, [facility] [id number] [address] Jul, [facility] [id number] [address] Jul, [facility] [id number] [address] Apr, [facility] [id number] [address] Apr, [facility] [id number] [address] Apr, [facility] [id number] [address] January, IMMUNIZATIONS No Known Immunizations SOCIAL HISTORY Never Assessed REASON FOR VISIT Transition of Care, PT pain has increased in upper left arm and left knee pain and swelling-Talha VELASQUEZ, PT also wants to talk about weight loss PLAN OF CARE Activity Details Follow Up 3 Months Reason: VITAL SIGNS Height 65 in 2017-08-25 Weight 352.6 lbs 2017-08-25 Temperature 97.8 degrees Fahrenheit 2017-08-25 Heart Rate 72 bpm 2017-08-25 Respiratory Rate 20 2017-08-25 BMI 58.67 kg/m2 2017-08-25 Blood pressure systolic 114 mmHg 2017-08-25 Blood pressure diastolic 76 mmHg 2017-08-25 MEDICATIONS Medication Instructions Dosage Frequency Start Date End Date Duration Status Albuterol Sulfate 90 mcg/actuation inhale 1 puff by Inhalation route every 4 hours PRN wheezing; use with spacer Aug, Active Albuterol Sulfate (2.5 MG/3ML) 0.083% Inhalation every 4 hrs a neded 3 ml Active Ibuprofen 800 MG Orally Three times a day 1 tablet with food or milk as needed 8h Active Ciprofloxacin 500 MG/5ML (10%) Orally 2 times a day 1 tablet 12h Active RESULTS Name Result Date Reference Range MRI : Cervical w/o Contrast 2017-09-09 PROCEDURES Procedure Date Ordered Result Body Site [facility] VISIT ESTABLISHED PATIENT Aug 25, 2017 INSTRUCTIONS MEDICATIONS ADMINISTERED No Known Medications [...] cholecystectomy Surgical History myringotomy with ventilating tube Hospitalization History overdose-inpatient treatment 1997 Hospitalization History overdose (prozac, lithium, klonopin)-inpatient treatment; total inpatient treatment 10-11 times. 2010 Hospitalization History bronchitis 09-15-2015 Hospitalization History bronchitis ER visit -04/15-06-30 Hospitalization History Celluliti BLE-[facility] 02/08/17 Hospitalization History Cellulitis-[facility] 04/22/17 Hospitalization History cellulitis-[facility] December 2017
--- OUTSIDE RECORDS SUMMARY | 2018-10-07 16:04 | XMS REPORT ---
Author Author OCTAVIO Yadav Organization [facility] Address [address] [place] [address] Care Team Providers Care [employer] Project Manager Name Role Phone OCTAVIO Yadav Unavailable PROBLEMS Type Condition ICD9-CM Code CDT31-YC Code Onset Dates Condition Status SNOMED Code Problem Cervical radiculopathy M54.12 Active 12428067 Problem Morbid obesity E66.01 Active 212255429 Problem Mild intermittent asthma without complication J45.20 Active 542212118 Problem Sleep apnea G47.30 Active 09679021 Problem Bipolar disorder with severe depression F31.4 Active 029749858 Problem Pain in left shoulder M25.512 Active 25598800 Problem 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 462048180 Problem Bipolar affective disorder, currently depressed, mild F31.31 Active 937832402 Problem Alcohol use disorder, mild, abuse F10.10 Active 16349975 Problem Cervical disc disease M50.90 Active 686002487 Problem Venous insufficiency I87.2 Active 04277364 Problem Cocaine use disorder, severe, 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 Active 09768201 Problem Methamphetamine use disorder, severe, 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 Active 35542108 ALLERGIES No Information ENCOUNTERS Encounter Location Date Diagnosis [place] [id number] [place] [address] 04860- 9158 Feb, [place] [address] [place] [id number] [place] [address] 66679- 1598 January, Medicare annual wellness visit, initial Z00.00 [place] [address] [place] [id number] [place] [address] 60797- 6012 January, Cellulitis of left lower extremity L03.116 and BMI 50.0-59.9 , adult Z68.43 [place] [address] [place] [id number] [place] [address] 34954- 6185 Dec, Non-pressure chronic ulcer of left calf, 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 ; History of cellulitis Z87.2 and BMI 50.0-59.9, adult Z68.43 [facility] [address] [place] [address] 10373 -6264 Dec, Cloudy urine R82.90 ; Cellulitis of lower extremity, unspecified laterality L03.119 and BMI 50.0-59.9, adult Z68.43 [place] [address] [place] [id number] [place] [address] 41453- 5554 Nov, Sleep apnea G47.[address] 84649- 1753 08 Nov, 2017 Bipolar affective disorder, currently depressed, mild F31.31 ; Methamphetamine use disorder, severe, 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 ; Cocaine use disorder, severe, 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 ; Alcohol use disorder, mild, abuse F10.10 and BMI 50.0-59.9, adult Z68.43 [place] [address] [place] [address] 13159- 3367 15 Oct, 2017 BMI 50.0-59.9, adult Z68.43 ; Bipolar affective disorder, currently depressed, mild F31.31 ; Methamphetamine use disorder, severe, 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 ; Cocaine use disorder, severe, 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9, adult Z68.44 [place] [address] 99598- 5919 Sep, [place] [address] 40320- 0842 Aug, Cervical disc disease M50.90 [place] [address] 21979- 9713 Aug, [place] [address] 46293- 4647 Aug, Mild intermittent asthma without complication J45.20 ; Cervical radiculopathy M54.12 ; Venous insufficiency I87.2 ; Morbid obesity E66.01 and BMI 50.0-59.9, adult Z68.43 [place] [address] 91948- 7744 Jun, [place] [address] [place] [id number] [place] [address] 88346- 8534 May, [place] [address] 16476- 8653 Apr, [place] [address] [place] [id number] [place] [address] 92945- 3614 Apr, 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 [place] [address] [id number] Apr, [place] [address] [place] [id number] [place] [address] 48178- 9784 Apr, 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 74891- 5288 Apr, Cellulitis of left lower extremity L03.116 ; Localized edema R60.0 ; 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 and Bipolar disorder with severe depression F31.[address] 85833- 6373 Apr, Cellulitis of unspecified part of limb L03.119 and 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 [facility] [address] [place] [id number] [place] [address] 94843- 6225 Mar, [facility] [address] [place] [address] 44652 -3532 Mar, Cellulitis of left lower limb L03.116 [facility] [address] [place] [id number] [place] [address] 02799- 8804 Mar, 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 and Cellulitis L03.90 [place] [address] [place] [id number] [place] [address] 14386- 0444 Mar, Bronchitis J40 and Cellulitis L03.90 [place] [address] [place] [id number] [place] [address] 40653- 3856 January, [facility] [address] [id number] [place] [address] 24453- 1613 January, [place] [address] [place] [id number] [place] [address] 63872- 8358 Nov, 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 ; Cellulitis L03.90 ; Obese E66.9 ; Pain in left shoulder M25.512 ; Localized edema R60.0 ; Sleep apnea G47.30 ; Anxiety about health F41.8 and Bipolar disorder with severe depression F31.4 [place] [address] [place] [id number] [place] [address] 55246- 3364 Aug, Obese E66.9 ; 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 ; Sleep apnea G47.30 ; Cellulitis L03.90 ; Cellulitis of unspecified part of limb L03.119 ; Intractable tension-type headache, unspecified chronicity pattern G44.201 ; Concussion, without loss of consciousness, subsequent encounter S06.0X0D and Localized edema R60.0 [place] [address] [place] [address] 27574- 3991 Jun, [place] [address] [address]- 3018 Jun, 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 ; Other chronic pain G89.29 ; Cellulitis of unspecified part of limb L03.119 and Cutaneous abscess of limb, unspecified L02.419 [place] [address] [place] [id number] [place] [address] 28489- 9989 Jun, [place] [address] [place] [id number] [place] [address] 26719- 7942 May, [place] [address] [place] [id number] [place] [address] 82313- 9032 May, [place] [address] [place] [id number] [place] [address] 91149- 4609 Apr, Impingement syndrome, shoulder, left M75.42 and SLAP lesion of left shoulder S43.432A [place] [address] [place] [id number] [place] [address] 55358- 2578 Apr, [place] [address] [place] [id number] [place] [address] 38433- 5946 Apr, [place] [address] [place] [id number] [place] [address] 21016- 0818 Apr, [place] [address] [place] [id number] [place] [address] 80270- 8705 Apr, Cellulitis L03.90 ; Obese E66.9 ; Pain in left shoulder M25.512 and Edema, unspecified type R60.9 [place] [address] [place] [address] 50826- 7883 Mar, Obese E66.9 ; Pain in left shoulder M25.512 and Other chronic pain G89.29 [place] [address] [place] [id number] [place] [address] 39023- 2714 Feb, Anxiety about health F41.8 [place] [address] [place] [id number] [place] [address] 37000- 1041 Feb, Obese E66.9 ; 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 ; Shortness of breath R06.02 ; Palpitations R00.2 ; Bipolar disorder with severe depression F31.4 and 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 E40 [place] [address] [place] [id number] [place] [address] 17059- 5325 Feb, Bipolar disorder with severe depression F31.4 [place] [address] 80801- 0696 Feb, Injury of left shoulder and upper arm, initial encounter S49.92XA [address] 05914- 6805 January, [place] [address] 06276- 5192 Dec, Bipolar disorder with severe depression F31.[address] 35528- 7558 Dec, Obese E66.9 ; 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 ; Sleep apnea G47.30 ; Anxiety about health F41.8 and Bipolar disorder with severe depression F31.4 [place] [address] [place] [id number] [place] [address] 07595- 7765 Dec, Bipolar disorder with severe depression F31.4 [place] [address] [place] [id number] [place] [address] 22877- 2062 Dec, Bipolar disorder with severe depression F31.4 and 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 [place] [address] [place] [id number] [place] [address] 62741- 1257 Nov, [place] [address] [place] [id number] [place] [address] 49903- 0437 Nov, [place] [address] [place] [id number] [place] [address] 42657- 7884 Nov, [place] [id number] [place] [address] 48207- 5960 Nov, [place] [address] 96856- 2439 Nov, Bipolar disorder with severe depression F31.4 [place] [address] [place] [id number] [place] [address] 86425- 0716 17 Nov, 2015 Bipolar disorder with severe depression F31.4 [place] [address] 20636- 4194 16 Nov, 2015 Anxiety about health F41.8 ; Obese E66.9 ; 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 ; Bipolar disorder with severe depression F31.4 and Family history of obesity Z83.49 [place] [id number] [place] [address] 20809- 1043 14 Nov, [address] 24919- 2082 Nov, Obese E66.9 ; 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 ; Cellulitis L03.90 ; Palpitations R00.2 ; Sleep apnea G47.30 and Shortness of breath R06.02 [place] [id number] [place] [address] 39179- 2724 Sep, UTI (urinary tract infection) N39.0 and Bronchitis J40 [place] [id number] [place] [address] 43304- 2232 Sep, [place] [id number] [place] [address] 26320- 4044 Mar, Left carpal tunnel syndrome 354.[address] 93581- 5262 Feb, Cellulitis 682.9 and Ankle edema 782.3 [place] [id number] [place] [address] 86267- 7272 Feb, [address] [place] [address]- 2221 January, Carpal tunnel syndrome on left 354.0 [facility] [address] [place] [id number] [place] [address] 57585- 7942 January, Shoulder pain, left 719.41 [facility] [address] [place] [address]- 5062 January, [facility] [address] [place] [id number] [place] [address] 40297- 1006 Dec, [facility] [address] [address]- 6188 Dec, [facility] [address] [place] [id number] [place] [address] 93882- 5468 Oct, [facility] [address] [place] [address] [address]- 5093 Oct, [facility] [address] [place] [address] [address]- 5225 Oct, [facility] [address], [place] [address]- 8170 Oct, [facility] [address], [place] [address]- 5701 Sep, [facility] [address], [place] [address]- 9759 Sep, [facility] [address] [address]- 0293 Aug, [facility] [address]- 5706 Aug, [facility] [address]- 5753 Jun, [facility] [place] [facility] [address]- 0196 Jun, [facility] [address] [place] [id number] [place] [address]- 0729 22 May, 2013 [facility] [place] [facility] [address] [id number] [place] [address]- 5687 22 May, 2014 [facility] [place] [facility] [address] [id number] [place] [address]- 4836 May, [facility] [place] [facility] [address] [id number] [place] [address]- 9346 May, [facility] [place] [facility] [address] [id number] [place] [address]- 7955 05 May, 2014 [facility] [place] [facility] [address] [id number] [place] [address]- 1026 05 May, 2014 [facility] [place] [facility] [address] [id number] [place] [address]- 5637 Apr, [facility] [place] [facility] [address] [id number] [place] [address]- 2530 Apr, [facility] [place] [facility] [address] [id number] [place] [address]- 3831 Apr, [facility] [place] [facility] [address] [id number] [place] [address]- 1756 Apr, [facility] [place] [facility] [address] [id number] [place] [address]- 8502 Apr, [facility] [place] [facility] [address] [id number] [place] [address]- 6876 Apr, [facility] [place] [facility] [address] [id number] [place] [address]- 3612 Apr, [facility] [place] [facility] [address] [id number] [place] [address]- 6341 Mar, [facility] [place] [facility] [address] [id number] [place] [address]- 6170 Mar, [facility] [place] [facility] [address] [id number] [place] [address]- 3696 Mar, [facility] [place] [facility] [address] [id number] [place] [address]- 0754 Mar, [facility] [place] [facility] [address] [id number] [place] [address]- 5934 Mar, [facility] [place] [facility] [address] [id number] [place] [address]- 5608 Mar, [facility] [place] [facility] [address] [id number] [place] [address]- 4681 Feb, [facility] [place] [facility] [address] [id number] [place] [address]- 6591 Feb, [facility] [place] [facility] [address] [id number] [place] [address]- 6925 Feb, [facility] [place] [facility] [address] [id number] [place] [address]- 0623 Feb, [facility] [place] [facility] [address] [id number] [place] [address]- 3585 January, [facility] [place] [facility] [address] [id number] [place] [address]- 9590 January, [facility] [place] [facility] [address] [id number] [place] [address]- 8184 January, [facility] [place] [facility] [address] [id number] [place] [address]- 1253 January, [facility] [place] [facility] [address] [id number] [place] [address]- 2300 January, [facility] [place] [facility] [address] [id number] [place] [address]- 1053 January, [facility] [place] [facility] [address] [id number] [place] [address]- 7461 January, [facility] [place] [facility] [address] [id number] [place] [address]- 8148 January, [facility] [place] [facility] [address] [id number] [place] [address]- 2466 January, [facility] [place] [facility] [address] [id number] [place] [address]- 8628 January, [facility] [place] [facility] [address] [id number] [place] 8067 January, [facility] [place] [facility] [address] [id number] [place] [address]- 4639 Dec, [facility] [place] [facility] [address] [id number] [place] [address]- 2462 Dec, [facility] [place] [facility] [address] [id number] [place] [address]- 0711 Dec, [facility] [place] [facility] [address] [id number] [place] [address]- 7306 Dec, [facility] [place] [facility] [address] [id number] [place] [address]- 7098 Nov, [facility] [place] [facility] [address] [id number] [place] [address]- 1973 Nov, [facility] [place] [facility] [address] [id number] [place] [address]- 2346 Oct, [facility] [place] [facility] [address] [id number] [place] [address]- 6209 Oct, [facility] [place] [facility] [address] [id number] [place] [address]- 7221 Oct, [facility] [place] [facility] [address] [id number] [place] [address]- 1709 Oct, [facility] [place] [facility] [address] [id number] [place] [address]- 1825 Sep, [facility] [place] [facility] [address] [id number] [place] [address]- 5314 Sep, [facility] [place] [facility] [address] [id number] [place] [address]- 2943 Sep, [facility] [place] [facility] [address] [id number] [place] [address]- 7969 Sep, [facility] [place] [facility] [address] [id number] [place] [address]- 2518 Sep, [facility] [place] [facility] [address] [id number] [place] [address]- 4536 Sep, [facility] [place] [facility] [address] [id number] [place] [address]- 8162 Aug, [facility] [place] [facility] [address] [id number] [place] [address]- 4857 Aug, [facility] [place] [facility] [address] [id number] [place] [address]- 5239 Aug, [facility] [place] [facility] [address] [id number] [place] [address]- 2620 Aug, [facility] [place] [facility] [address] [id number] [place] [address]- 8816 Aug, [facility] [place] [facility] [address] [id number] [place] [address]- 0650 Aug, [facility] [place] [facility] [address] [id number] [place] [address]- 8224 Aug, [facility] [place] [facility] [address] [id number] [place] [address]- 5681 Aug, [facility] [place] [facility] [address] [id number] [place] [address]- 8718 Aug, [facility] [place] [facility] [address] [id number] [place] [address]- 8553 Aug, [facility] [place] [facility] [address] [id number] [place] [address]- 6377 15 Jul, 2013 [facility] [place] [facility] [address] [id number] [place] [address]- 8196 15 Jul, 2013 [facility] [place] [facility] [address] [id number] [place] [address]- 7917 Jul, [facility] [place] [facility] [address] [id number] [place] [address]- 4321 Jul, [facility] [place] [facility] [address] [id number] [place] [address]- 3702 Jun, [facility] [place] [facility] [address] [id number] [place] [address]- 6659 Jun, [facility] [place] [facility] [address] [id number] [place] [address]- 6827 Jun, [facility] [place] [facility] [address] [id number] [place] [address]- 9743 Jun, [facility] [place] [facility] [address] [id number] [place] [address]- 9521 Jun, [facility] [place] [facility] [address] [id number] [place] [address]- 9333 May, [facility] [place] [facility] [address] [id number] [place] [address]- 3526 May, [facility] [place] [facility] [address] [id number] [place] [address]- 1412 Apr, [facility] [place] [facility] [address] [id number], [place] [address]- 2048 Mar, [facility] [place] [facility] [address] [id number], [place] [address]- 3601 Mar, [facility] [place] [facility] [address] [id number], [place] [address]- 0724 Mar, [facility] [place] [facility] [address] [id number] [place] [address]- 3090 Mar, [facility] [place] [facility] [address] [id number], [place] [address]- 9434 Mar, [facility] [place] [facility] [address] [id number], [place] [address]- 5595 Mar, [facility] [place] [facility] [address] [id number] [place] [address]- 3494 18 Feb, 2013 [facility] [address] [id number] [place] [address]- 2837 18 Feb, 2013 [facility] [place] [facility] [address] [id number] [place] [address]- 1703 16 Feb, 2013 [facility] [place] [facility] [address] [id number] [place] [address]- 7149 15 Feb, 2013 [facility] [place] [facility] [address] [id number] [place] [address]- 0205 14 Feb, 2013 [facility] [place] [facility] [address] [id number] [place] [address]- 8454 13 Feb, 2013 [facility] [place] [facility] [address] [id number] [place] [address]- 6027 11 Feb, 2013 [facility] [place] [facility] [address] [facility] [id number] [place] [address]- 3346 January, [facility] [place] [facility] [address] [id number] [place] [address] January, [facility] [place] [facility] [address] [id number] [place] [address] Nov, [facility] [place] [facility] [address] [facility] [id number] [place] [address] Nov, [facility] [place] [facility] [address] [id number] [place] [address] Nov, [facility] [place] [facility] [address] [facility] [id number] [place] [address] Nov, [facility] [place] [facility] [address] [id number] [place] [address] Oct, [facility] [place] [facility] [address] [facility] [id number] [place] [address] Oct, [facility] [place] [facility] [address] [id number] [place] [address] Oct, [facility] [place] [facility] [address] [id number] [place] [address] Sep, [facility] [place] [facility] [address] [id number] [place] [address] Sep, [facility] [place] [facility] [address] [id number] [place] [address] Sep, [facility] [place] [facility] [address] [id number] [place] [address] Sep, [facility] [place] [facility] [address] [id number] [place] [address] Aug, [facility] [place] [facility] [address] [id number] [place] [address] Aug, [facility] [place] [facility] [address] [facility] [id number] [place] [address] Jul, [facility] [place] [facility] [address] [id number], [place] [address] Jul, [facility] [place] [facility] [address] [facility] [id number] [place] [address] Jun, [facility] [place] [facility] [address] [facility] [id number], [place] [address] Jun, [facility] [place] [facility] [address] [facility] [id number], [place] [address] Jun, [facility] [place] [facility] [address] [id number], [place] [address] Jun, [facility] [facility] [address] [id number], [place] [address] Jun, [facility] [place] [facility] [address] [id number], [place] [address] Jun, [facility] [place] [facility] [address] [facility] [id number], [place] [address] Jun, [facility] [place] [facility] [address] [id number], [place] [address] Jun, [facility] [place] [facility] [address] [id number] [place] [address] Jun, [facility] [place] [facility] [address] [id number] [place] [address] Jun, [facility] [place] [facility] [address] [id number] [place] [address] Jun, [facility] [place] [facility] [address] [id number] [place] [address] Jun, [facility] [place] [facility] [address] [id number] [place] [address] Jun, [facility] [place] [facility] [address] [id number] [place] [address] Jun, [facility] [place] [facility] [address] [facility] [id number] [place] [address] Jun, [facility] [place] [facility] [address] [facility] [id number] [place] [address] Jun, [facility] [place] [facility] [address] [facility] [id number] [place] [address] 29 May, 2012 [facility] [place] [facility] [address] [facility] [id number] [place] [address] May, [facility] [place] [facility] [address] [facility] [id number] [place] [address] May, [facility] [place] [facility] [address] [facility] [id number] [place] [address] 24 May, 2012 [facility] [place] [facility] [address] [id number] [place] [address] May, [facility] [place] [facility] [address] [facility] [id number] [place] [address] Mar, [facility] [place] [facility] [address] [facility] [id number] [place] [address] Mar, [facility] [place] [facility] [address] [id number] [place] [address] Mar, [facility] [place] [facility] [address] [id number] [place] [address]- [address] Mar, [facility] [place] [facility] [address] [id number] [place] [address] Mar, [facility] [place] [facility] [address] [id number] [place] [address] Mar, [facility] [place] [facility] [address] [id number] [place] [address] Feb, [facility] [place] [facility] [address] [id number] [place] [address] Feb, [facility] [place] [facility] [address] [id number] [place] [address] Feb, [facility] [place] [facility] [address] [id number] [place] [address] Feb, [facility] [place] [facility] [address] [id number] [place] [address] Feb, [facility] [place] [facility] [address] [id number] [place] [address] January, [facility] [place] [facility] [address] [id number] [place] [address] Dec, [facility] [place] [facility] [address] [id number] [place] [address] Dec, [facility] [place] [facility] [address] [id number] [place] [address] Dec, [facility] [place] [facility] [address] [id number] [place] [address] Dec, [facility] [place] [facility] [address] [id number] [place] [address] Dec, [facility] [place] [facility] [address] [id number] [place] [address] Nov, [facility] [address] [id number] [address] Oct, [facility] [id number] [address] Sep, [facility] [address] [id number] [address] Aug, [facility] [id number] [address] Jul, [facility] [id number] [place] [address] Jul, [facility] [id number] [place] [address] Jul, [facility] [id number], [place] [address] Apr, [facility] [id number], [place] [address] Apr, [facility] [id number], [place] [address] Apr, [facility] [id number] [place] [address] January, IMMUNIZATIONS No Known Immunizations SOCIAL HISTORY Never Assessed REASON FOR VISIT LVM PLAN OF CARE VITAL SIGNS MEDICATIONS Unknown [...] bronchitis 09-15-2015 Hospitalization History bronchitis ER visit 1-8/1-06-30 Hospitalization History Celluliti BLE-H 02/08/17 Hospitalization History Cellulitis-[facility] 04/22/17 Hospitalization History cellulitis-[facility] December 2017
--- OUTSIDE RECORDS SUMMARY | 2018-10-07 16:05 | XMS REPORT ---
Author Author CAROLYNE STARR [facility] Address [address] [place] [address] Care Team Providers Care Chlorinator Name Role Phone CAROLYNE STARR Unavailable PROBLEMS Type Condition ICD9-CM Code MML06-IF Code Onset Dates Condition Status SNOMED Code Problem Cervical radiculopathy M54.12 Active 27513614 Problem Morbid obesity E66.01 Active 714984050 Problem Mild intermittent asthma without complication J45.20 Active 456536430 Problem Sleep apnea G47.30 Active 41954353 Problem Bipolar disorder with severe depression F31.4 Active 886683744 Problem Pain in left shoulder M25.512 Active 97097186 Problem 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 451051185 Problem Bipolar affective disorder, currently depressed, mild F31.31 Active 566523258 Problem Alcohol use disorder, mild, abuse F10.10 Active 54118008 Problem Cervical disc disease M50.90 Active 875590501 Problem Venous insufficiency I87.2 Active 81416367 Problem Cocaine use disorder, severe, 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 Active 37601385 Problem Methamphetamine use disorder, severe, 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 Active 18384639 ALLERGIES No Information ENCOUNTERS Encounter Location Date Diagnosis [place] [id number] [place] [address] 73588- 6957 07 Feb, 2018 [place] [address] [place] [id number] [place] [address] 08773- 2137 January, [place] [address] [place] [id number] [place] [address] 38123- 6237 15 Jan, 2018 Medicare annual wellness visit, initial Z00.00 ; Morbid obesity E66.01 ; Mild intermittent asthma without complication J45.20 ; Bipolar disorder with severe depression F31.4 ; 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 ; Venous insufficiency I87.2 and Encounter for immunization Z23 [facility] [id number] [place] [address] 19524- 6788 January, [place] [address] 24474- 2579 January, Cellulitis of left lower extremity L03.116 and BMI 50.0-59.9 , adult Z68.43 [place] [address] 27439- 0336 Dec, Non-pressure chronic ulcer of left calf, 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 ; History of cellulitis Z87.2 and BMI 50.0-59.9, adult Z68.43 [facility] [address] [address] Dec, Cloudy urine R82.90 ; Cellulitis of lower extremity, unspecified laterality L03.119 and BMI 50.0-59.9, adult Z68.43 [place] [address] [place] [id number] [place] [address] 53450- 6915 Nov, Sleep apnea G47.30 [place] [address] [place] [id number] [place] [address] 83023- 4844 08 Nov, 2017 Bipolar affective disorder, currently depressed, mild F31.31 ; Methamphetamine use disorder, severe, 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 ; Cocaine use disorder, severe, 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 ; Alcohol use disorder, mild, abuse F10.10 and BMI 50.0-59.9, adult Z68.43 [place] [address] [place] [id number] [place] [address] 00841- 9367 15 Oct, 2017 BMI 50.0-59.9, adult Z68.43 ; Bipolar affective disorder, currently depressed, mild F31.31 ; Methamphetamine use disorder, severe, 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 ; Cocaine use disorder, severe, 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 and Alcohol use disorder, mild, abuse F10.10 [place] [address] [id number] [place] [address] 31004- 1852 14 Oct, 2017 [place] [address] [address] [id number] [place] [address] 43598- 8267 Oct, BMI 50.0-59.9, adult Z68.43 ; 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 and Morbid obesity E66.01 [facility] [id number] [place] [address] 13414 -3535 Sep, Acute suppurative otitis media of right ear without spontaneous rupture of tympanic membrane, recurrence not specified H66.001 and BMI 60.0-69.9, adult Z68.44 [facility] [address] [place] [id number] [place] [address] 01607- 9324 Sep, [facility] [address] 78263- 0335 Aug, Cervical disc disease M50.90 [facility] [address] [place] [id number] [place] [address] 64780- 2524 Aug, [facility] [address] [place] [id number] [place] [address] 93777- 1890 Aug, Mild intermittent asthma without complication J45.20 ; Cervical radiculopathy M54.12 ; Venous insufficiency I87.2 ; Morbid obesity E66.01 and BMI 50.0-59.9, adult Z68.43 [facility] [address] [place] [id number] [place] [address] 50222- 7987 Jun, [facility] [id number] [place] [address] 29412- 2632 May, [facility] [address] [place] [id number] [place] [address] 02885- 1856 Apr, [facility] [address] 41477- 9151 Apr, 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 [facility] [address] [place] [id number] [place] [address] [id number] Apr, [facility] [address] 37425- 2240 Apr, 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 [facility] [address] [address] 1118 Apr, Cellulitis of left lower extremity L03.116 ; Localized edema R60.0 ; 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 and Bipolar disorder with severe depression F31.4 [facility] [id number] [place] [address] 69256- 8097 Apr, Cellulitis of unspecified part of limb L03.119 and 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 [facility] [id number] [place] [address] 69313- 1776 Mar, [facility] [id number] [place] [address] 62525 -3270 Mar, Cellulitis of left lower limb L03.116 [facility] [address] [place] [id number] [place] [address] 99734- 7041 Mar, 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 and Cellulitis L03.90 [facility] [address] [place] [id number] [place] [address] 87505- 6406 Mar, Bronchitis J40 and Cellulitis L03.90 [facility] [address] [place] [id number] [place] [address] 60173- 0950 January, [facility] [id number] [place] [address] 08042- 8926 January, [facility] [id number] [place] [address] 06085- 3068 Nov, 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 ; Cellulitis L03.90 ; Obese E66.9 ; Pain in left shoulder M25.512 ; Localized edema R60.0 ; Sleep apnea G47.30 ; Anxiety about health F41.8 and Bipolar disorder with severe depression F31.4 [facility] [address] [address]- 3489 Aug, Obese E66.9 ; 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 ; Sleep apnea G47.30 ; Cellulitis L03.90 ; Cellulitis of unspecified part of limb L03.119 ; Intractable tension-type headache, unspecified chronicity pattern G44.201 ; Concussion, without loss of consciousness, subsequent encounter S06.0X0D and Localized edema R60.0 [place] [address] [place] [id number] [place] [address] 34692- 2792 Jun, [place] [address] 55237- 5637 Jun, 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 ; Other chronic pain G89.29 ; Cellulitis of unspecified part of limb L03.119 and Cutaneous abscess of limb, unspecified L02.419 [place] [address] [place] [id number] [place] [address] 22928- 6484 Jun, [place] [address] 52796- 4661 May, [place] [address] [place] [id number] [place] [address] 92584- 4533 May, [place] [address] 94222- 7198 Apr, Impingement syndrome, shoulder, left M75.42 and SLAP lesion of left shoulder S43.432A [place] [address] [place] [id number] [place] [address] 15344- 5210 Apr, [place] [address] [place] [id number] [place] [address] 47182- 9334 Apr, [place] [address] [place] [id number] [place] [address] 78423- 7338 Apr, [place] [address] [place] [address] [id number] [place] [address] 12862- 0141 Apr, Cellulitis L03.90 ; Obese E66.9 ; Pain in left shoulder M25.512 and Edema, unspecified type R60.9 [place] [address] [place] [id number] [place] [address]- 8022 Mar, Obese E66.9 ; Pain in left shoulder M25.512 and Other chronic pain G89.29 [facility] [address] 13279- 1249 Feb, Anxiety about health F41.8 [facility] [address] [place] [id number] [place] [address] 63121- 6338 Feb, Obese E66.9 ; 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 ; Shortness of breath R06.02 ; Palpitations R00.2 ; Bipolar disorder with severe depression F31.4 and 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 E40 [place] [address] 04236- 8413 Feb, Bipolar disorder with severe depression F31.4 [place] [address] 69007- 9534 Feb, Injury of left shoulder and upper arm, initial encounter S49.92XA [place] [address] 00553- 0413 January, [place] [address] 30636- 4458 Dec, Bipolar disorder with severe depression F31.4 [place] [address] [place] [id number] [place] [address] 87051- 6417 Dec, Obese E66.9 ; 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 ; Sleep apnea G47.30 ; Anxiety about health F41.8 and Bipolar disorder with severe depression F31.4 [facility] [address] 85216- 2452 Dec, Bipolar disorder with severe depression F31.4 [facility] [address] [place] [id number] [place] [address] 89337- 7918 Dec, Bipolar disorder with severe depression F31.4 and 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 [place] [address] [place] [address] 62983- 1220 30 Nov, 2015 [facility] [address] [place] [id number] [place] [address] 69925- 3111 Nov, [facility] [address] [place] [id number] [place] [address] 71597- 1665 Nov, [place] [address] 03839- 8730 Nov, [place] [address] [place] [id number] [place] [address] 40664- 1615 Nov, Bipolar disorder with severe depression F31.4 [place] [address] [place] [id number] [place] [address] 58710- 3067 17 Nov, 2015 Bipolar disorder with severe depression F31.4 [place] [address] [place] [id number] [place] [address] 07197- 7456 16 Nov, 2015 Anxiety about health F41.8 ; Obese E66.9 ; 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 ; Bipolar disorder with severe depression F31.4 and Family history of obesity Z83.49 [place] [address] [place] [id number] [place] [address] 72072- 1778 14 Nov, 2015 [place] [address] [place] [id number] [place] [address] 00214- 9786 Nov, Obese E66.9 ; 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 ; Cellulitis L03.90 ; Palpitations R00.2 ; Sleep apnea G47.30 and Shortness of breath R06.02 [place] [address] [place] [address] 82725- 4847 Sep, UTI (urinary tract infection) N39.0 and Bronchitis J40 [place] [address] [place] [id number] [place] [address] 29588- 5252 Sep, [place] [address] [place] [id number] [place] [address] 76810- 3233 Mar, Left carpal tunnel syndrome 354.0 [facility] [place] [facility] [address] [address]- 9633 Feb, Cellulitis 682.9 and Ankle edema 782.3 [facility] [place] [facility] [id number] [address]- 9275 Feb, [facility] [address] [id number] [place] [address] 64136- 1341 January, Carpal tunnel syndrome on left 354.0 [facility] [address] [address]- 3428 January, Shoulder pain, left 719.41 [facility] [address] [id number] [place] [address] 74358- 6294 January, [facility] [address] [id number] [place] [address] 25252- 8435 Dec, [facility] [address] [address]- 8043 Dec, [facility] [address] [address]- 8636 Oct, [facility] [address] [place] [address]- 7756 Oct, [facility] [address] [place] [address]- 8235 Oct, [facility] [address] [address]- 3487 Oct, [facility] [address] 1011 Sep, [facility] [place] [facility] [address] [place] [address]- 0967 Sep, [facility] [address] [address]- 8687 Aug, [facility] [place] [facility] [address] [id number] [place] [address]- 1224 08 Aug, 2014 [facility] [place] [facility] [address] [id number] [place] [address]- 8703 Jun, [facility] [place] [facility] [address] [id number] [place] [address]- 6676 Jun, [facility] [place] [facility] [address] [id number] [place] [address]- 9476 May, [facility] [place] [facility] [address] [id number] [place] [address]- 7508 May, [facility] [place] [facility] [address] [id number] [place] [address]- 6104 May, [facility] [place] [facility] [address] [id number] [place] [address]- 9253 May, [facility] [place] [facility] [address] [id number] [place] [address]- 1723 May, [facility] [place] [facility] [address] [id number] [place] [address]- 3966 May, [facility] [place] [facility] [address] [id number] [place] [address]- 8345 Apr, [facility] [place] [facility] [address] [id number] [place] [address]- 7629 Apr, [facility] [place] [facility] [address] [id number] [place] [address]- 2818 Apr, [facility] [place] [facility] [address] [id number] [place] [address]- 4608 Apr, [facility] [place] [facility] [address] [id number] [place] [address]- 5963 Apr, [facility] [place] [facility] [address] [id number] [place] [address]- 2611 Apr, [facility] [place] [facility] [address] [id number] [place] [address]- 7944 Apr, [facility] [place] [facility] [address] [id number] [place] [address]- 9672 Mar, [facility] [place] [facility] [address] [id number] [place] [address]- 7035 Mar, [facility] [place] [facility] [address] [id number] [place] [address]- 1002 Mar, [facility] [place] [facility] [address] [id number] [place] [address]- 9900 Mar, [facility] [place] [facility] [address] [id number] [place] [address]- 4781 Mar, [facility] [place] [facility] [address] [id number] [place] [address]- 3441 Mar, [facility] [place] [facility] [address] [id number] [place] [address]- 3891 Feb, [facility] [place] [facility] [address] [id number] [place] [address]- 2940 Feb, [facility] [place] [facility] [address] [id number] [place] [address]- 7151 Feb, [facility] [place] [facility] [address] [id number] [place] [address]- 3456 Feb, [facility] [place] [facility] [address] [id number] [place] [address]- 1522 January, [facility] [place] [facility] [address] [id number] [place] [address]- 3999 January, [facility] [place] [facility] [address] [id number] [place] [address]- 9804 January, [facility] [place] [facility] [address] [id number] [place] [address]- 9738 January, [facility] [place] [facility] [address] [id number] [place] [address]- 2225 January, [facility] [place] [facility] [address] [id number] [place] [address]- 2256 January, [facility] [place] [facility] [address] [id number] [place] [address]- 1934 January, [facility] [place] [facility] [address] [id number] [place] [address]- 5973 January, [facility] [place] [facility] [address] [id number] [place] [address]- 6186 January, [facility] [place] [facility] [address] [id number] [place] [address]- 9247 January, [facility] [place] [facility] [address] [id number] [place] [address]- 1861 January, [facility] [place] [facility] [address] [id number] [place] [address]- 5968 Dec, [facility] [place] [facility] [address] [id number] [place] [address]- 4151 Dec, [facility] [place] [facility] [address] [id number] [place] [address]- 3906 Dec, [facility] [place] [facility] [address] [id number] [place] [address]- 2985 Dec, [facility] [place] [facility] [address] [id number] [place] [address]- 0466 Nov, [facility] [place] [facility] [address] [id number] [place] [address]- 8320 Nov, [facility] [place] [facility] [address] [id number] [place] [address]- 0262 Oct, [facility] [place] [facility] [address] [id number] [place] [address]- 9643 Oct, [facility] [place] [facility] [address] [id number] [place] [address]- 0920 Oct, [facility] [place] [facility] [address] [id number] [place] [address]- 4221 Oct, [facility] [address] [id number] [place] [address]- 0792 Sep, [facility] [place] [facility] [address] [id number] [place] [address]- 6504 Sep, [facility] [place] [facility] [address] [id number] [place] [address]- 5808 Sep, [facility] [place] [facility] [address] [id number] [place] [address]- 1313 Sep, [facility] [place] [facility] [address] [id number] [place] [address]- 3022 Sep, [facility] [place] [facility] [address] [id number] [place] [address]- 9997 Sep, [facility] [place] [facility] [address] [id number] [place] [address]- 2157 Aug, [facility] [place] [facility] [address] [id number] [place] [address]- 8813 Aug, [facility] [place] [facility] [address] [id number] [place] [address]- 8812 Aug, [facility] [place] [facility] [address] [id number] [place] [address]- 1300 Aug, [facility] [place] [facility] [address] [id number] [place] [address]- 0657 Aug, [facility] [place] [facility] [address] [id number], [place] [address]- 5783 Aug, [facility] [place] [facility] [address] [id number] [place] [address]- 6328 Aug, [facility] [place] [facility] [address] [id number] [place] [address]- 7556 Aug, [facility] [place] [facility] [address] [id number], [place] [address]- 7444 Aug, [facility] [place] [facility] [address] [id number], [place] [address]- 8810 Aug, [facility] [place] [facility] [address] [id number] [place] [address]- 7885 Jul, [facility] [place] [facility] [address] [id number] [place] [address]- 8274 Jul, [facility] [place] [facility] [address] [id number] [place] [address]- 1364 Jul, [facility] [place] [facility] [address] [id number] [place] [address]- 9492 Jul, [facility] [place] [facility] [address] [id number] [place] [address]- 1858 Jun, [facility] [place] [facility] [address] [id number] [place] [address]- 7246 Jun, [facility] [place] [facility] [address] [id number] [place] [address]- 1634 Jun, [facility] [place] [facility] [address] [id number] [place] [address]- 4330 Jun, [facility] [place] [facility] [address] [id number] [place] [address]- 7113 Jun, [facility] [place] [facility] [address] [id number] [place] [address]- 8909 May, [facility] [place] [facility] [address] [id number] [place] [address]- 4862 May, [facility] [place] [facility] [address] [id number] [place] [address]- 0653 Apr, [facility] [place] [facility] [address] [id number] [place] [address]- 8819 Mar, [facility] [place] [facility] [address] [id number] [place] [address]- 7226 Mar, [facility] [place] [facility] [address] [facility] [id number] [place] [address]- 6811 Mar, [facility] [place] [facility] [address] [id number] [place] [address]- 8745 09 Mar, 2013 [facility] [place] [facility] [address] [id number] [place] [address]- 0719 05 Mar, 2013 [facility] [place] [facility] [address] [id number] [place] [address] 2546 Mar, [facility] [place] [facility] [address] [id number] [place] [address]- 9553 18 Feb, 2013 [facility] [place] [facility] [address] [id number] [place] [address]- 9201 18 Feb, 2013 [facility] [place] [facility] [address] [id number] [place] [address]- 8587 16 Feb, 2013 [facility] [place] [facility] [address] [id number] [place] [address]- 5149 15 Feb, 2013 [facility] [place] [facility] [address] [id number] [place] [address]- 5000 14 Feb, 2013 [facility] [place] [facility] [address] [id number] [place] [address]- 7416 Feb, [facility] [place] [facility] [address] [id number] [place] [address]- 0623 Feb, [facility] [place] [facility] [address] [id number] [place] [address]- 9005 January, [facility] [place] [facility] [address] [id number] [place] [address]- 9246 January, [facility] [place] [facility] [address] [id number] [place] [address] Nov, [facility] [place] [facility] [address] [id number] [place] [address] Nov, [facility] [place] [facility] [address] [id number] [place] [address] Nov, [facility] [place] [facility] [address] [id number] [place] [address] Nov, [facility] [place] [facility] [address] [id number] [place] [address] Oct, [facility] [place] [facility] [address] [id number] [place] [address] Oct, [facility] [place] [facility] [address] [id number] [place] [address] Oct, [facility] [place] [facility] [address] [id number] [place] [address] Sep, [facility] [place] [facility] [address] [id number] [place] [address] Sep, [facility] [place] [facility] [address] [id number] [place] [address] Sep, [facility] [place] [facility] [address] [id number] [place] [address] Sep, [facility] [place] [facility] [address] [id number] [place] [address] Aug, [facility] [place] [facility] [address] [id number] [place] [address] Aug, [facility] [place] [facility] [address] [id number] [place] [address] Jul, [facility] [place] [facility] [address] [id number], [place] [address] Jul, [facility] [place] [facility] [address] [id number], [place] [address] Jun, [facility] [place] [facility] [address] [id number] [place] [address] Jun, [facility] [place] [facility] [address] [id number] [place] [address] Jun, [facility] [place] [facility] [address] [id number] [place] [address] Jun, [facility] [place] [facility] [address] [id number] [place] [address] Jun, [facility] [address] [id number] [place] [address] Jun, [facility] [place] [facility] [address] [id number] [place] [address] Jun, [facility] [place] [facility] [address] [id number] [place] [address]- [address] Jun, [facility] [place] [facility] [address] [id number] [place] [address] Jun, [facility] [place] [facility] [address] [id number] [place] [address] Jun, [facility] [place] [facility] [address] [id number] [place] [address]- [address] Jun, [facility] [place] [facility] [address] [id number] [place] [address] Jun, [facility] [place] [facility] [address] [id number] [place] [address] 18 Jun, 2012 [facility] [place] [facility] [address] [id number] [place] [address] Jun, [facility] [place] [facility] [address] [id number] [place] [address] Jun, [facility] [place] [facility] [address] [id number] [place] [address]- [address] Jun, [facility] [place] [facility] [address] [id number] [place] [address] 29 May, 2012 [facility] [place] [facility] [address] [id number] [place] [address]- [address] 26 May, 2012 [facility] [place] [facility] [address] [id number] [place] [address] 25 May, 2012 [facility] [place] [facility] [address] [id number] [place] [address] May, [facility] [place] [facility] [address] [id number] [place] [address]- [address] May, [facility] [place] [facility] [address] [id number] [place] [address] Mar, [facility] [place] [facility] [address] [id number] [place] [address] Mar, [facility] [place] [facility] [address] [id number] [place] [address] Mar, [facility] [place] [facility] [address] [id number] [place] [address] Mar, [facility] [facility] [address] [id number] [place] [address] Mar, [facility] [place] [facility] [address] [id number] [place] [address] Mar, [facility] [place] [facility] [address] [id number] [place] [address] Feb, [facility] [place] [facility] [address] [id number] [place] [address] Feb, [facility] [place] [facility] [address] [id number] [place] [address] Feb, [facility] [place] [facility] [address] [id number] [place] [address] Feb, [facility] [place] [facility] [address] [id number], [place] [address] Feb, [facility] [place] [facility] [address] [id number] [place] [address] January, [facility] [place] [facility] [address] [id number] [place] [address] Dec, [facility] [place] [facility] [address] [id number] [place] [address] Dec, [facility] [place] [facility] [address] [id number], [place] [address] Dec, [facility] [id number] [address] Dec, [facility] [id number] [place] [address] Dec, [facility] [id number], [place] [address] Nov, [facility] [id number] [place] [address] Oct, [facility] [id number] [place] [address]- [address] Sep, [facility] [id number] [place] [address] Aug, [facility] [id number] [place] [address]- [address] Jul, [facility] [id number] [place] [address]- [address] Jul, [facility] [id number] [place] [id number]- [address] Jul, [facility] [id number] [address] Apr, [facility] [id number], [place] [address] Apr, [facility] [id number] [address] Apr, [facility] [id number] [address] January, IMMUNIZATIONS No Known Immunizations SOCIAL HISTORY Never Assessed [facility] VITAL SIGNS MEDICATIONS Medication Instructions Dosage Frequency Start Date End Date Duration Status Ativan 1 MG Orally Once a day 1 24h Aug, Active RESULTS No Results PROCEDURES No Known [...] bronchitis ER visit -04/15-06-30 Hospitalization History Celluliti [facility] 02/08/17 Hospitalization History Cellulitis-[facility] 04/22/17 Hospitalization History cellulitis-[facility] December 2017
--- OUTSIDE RECORDS SUMMARY | 2018-10-07 16:05 | XMS REPORT ---
Author Author CAROLYNE STARR [facility] Address [address] [place] [address] Care Team Providers Care [employer] Name Role Phone CAROLYNE STARR Unavailable PROBLEMS Type Condition ICD9-CM Code [id number] Code Onset Dates Condition Status SNOMED Code Problem Cervical radiculopathy M54.12 Active 57131971 Problem Morbid obesity E66.01 Active 258899416 Problem Mild intermittent asthma without complication J45.20 Active 578042337 Problem Sleep apnea G47.30 Active 19414874 Problem Bipolar disorder with severe depression F31.4 Active 610414742 Problem Pain in left shoulder M25.512 Active 64352677 Problem 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 355730377 Problem Bipolar affective disorder, currently depressed, mild F31.31 Active 643323699 Problem Alcohol use disorder, mild, abuse F10.10 Active 92093813 Problem Cervical disc disease M50.90 Active 508425691 Problem Venous insufficiency I87.2 Active 48799633 Problem Cocaine use disorder, severe, 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 Active 10593251 Problem Methamphetamine use disorder, severe, 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 Active 78870133 ALLERGIES No Information ENCOUNTERS Encounter Location Date Diagnosis [place] [id number] [place] [address] 61910- 9554 07 Feb, 2018 [place] [id number] [place] [id number] [place] [address] 21228- 6772 January, [place] [address] [id number] [place] [address] 29395- 2005 15 Jan, 2018 Medicare annual wellness visit, initial Z00.00 ; Morbid obesity E66.01 ; Mild intermittent asthma without complication J45.20 ; Bipolar disorder with severe depression F31.4 ; 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 ; Venous insufficiency I87.2 and Encounter for immunization Z23 [facility] [id number] [place] [address] 72216- 6530 January, [place] [address] 84081- 4884 January, Cellulitis of left lower extremity L03.116 and BMI 50.0-59.9 , adult Z68.43 [place] [address] 65677- 0497 Dec, Non-pressure chronic ulcer of left calf, 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 ; History of cellulitis Z87.2 and BMI 50.0-59.9, adult Z68.43 [facility] [address] [address] -[address]79 Dec, Cloudy urine R82.90 ; Cellulitis of lower extremity, unspecified laterality L03.119 and BMI 50.0-59.9, adult Z68.43 [place] [address] [id number] [place] [address] 08258- 8212 Nov, Sleep apnea G47.30 [place] [address] [id number] [place] [address] 54002- 6322 08 Nov, 2017 Bipolar affective disorder, currently depressed, mild F31.31 ; Methamphetamine use disorder, severe, 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 ; Cocaine use disorder, severe, 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 ; Alcohol use disorder, mild, abuse F10.10 and BMI 50.0-59.9, adult Z68.43 [place] [address] [id number] [place] [address] 46157- 2613 15 Oct, 2017 BMI 50.0-59.9, adult Z68.43 ; Bipolar affective disorder, currently depressed, mild F31.31 ; Methamphetamine use disorder, severe, 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 [id number] [place] [address] 69952 -3354 Sep, Acute suppurative otitis media of right ear without spontaneous rupture of tympanic membrane, recurrence not specified H66.001 and BMI 60.0-69.9, adult Z68.44 [facility] [address] [place] [address] [id number] [place] [address] 89926- 4228 Sep, [facility] [address] 63934- 4827 Aug, Cervical disc disease M50.90 [facility] [address] [id number] [place] [address] 07243- 9318 Aug, [facility] [address] [id number] [place] [address] 40844- 1242 Aug, Mild intermittent asthma without complication J45.20 ; Cervical radiculopathy M54.12 ; Venous insufficiency I87.2 ; Morbid obesity E66.01 and BMI 50.0-59.9, adult Z68.43 [facility] [address] [id number] [place] [address] 79290- 3216 Jun, [facility] [id number] [place] [address] 43018- 5016 May, [facility] [address] [place] [id number] [place] [address] 64659- 2435 Apr, [facility] [address] 81084- 7645 Apr, 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 [facility] [address] [place] [id number] [place] [address] [id number] Apr, [facility] [address] 66806- 9318 Apr, 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 [facility] [address] [address]- 5119 Apr, Cellulitis of left lower extremity L03.116 ; Localized edema R60.0 ; 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 and Bipolar disorder with severe depression F31.4 [facility] [address] [id number] [place] [address] 51970- 4439 Apr, Cellulitis of unspecified part of limb L03.119 and 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 [facility] [id number] [place] [address] 26389- 5686 Mar, [facility] [id number] [place] [address] 28129 -7751 Mar, Cellulitis of left lower limb L03.116 [facility] [address] [place] [id number] [place] [address] 81210- 8882 Mar, 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 and Cellulitis L03.90 [facility] [address] [place] [id number] [place] [address] 11164- 6346 Mar, Bronchitis J40 and Cellulitis L03.90 [facility] [address] [place] [id number] [place] [address] 11310- 2932 January, [facility] [address] [id number] [place] [address] 39836- 8671 January, [facility] [address] [id number] [place] [address] 81537- 3388 Nov, 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 ; Cellulitis L03.90 ; Obese E66.9 ; Pain in left shoulder M25.512 ; Localized edema R60.0 ; Sleep apnea G47.30 ; Anxiety about health F41.8 and Bipolar disorder with severe depression F31.4 [facility] [address] [address]- 8212 Aug, Obese E66.9 ; 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 ; Sleep apnea G47.30 ; Cellulitis L03.90 ; Cellulitis of unspecified part of limb L03.119 ; Intractable tension-type headache, unspecified chronicity pattern G44.201 ; Concussion, without loss of consciousness, subsequent encounter S06.0X0D and Localized edema R60.0 [place] [address] [address] [id number] [place] [address] 20442- 4802 Jun, [place] [address] 24812- 7158 Jun, 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 ; Other chronic pain G89.29 ; Cellulitis of unspecified part of limb L03.119 and Cutaneous abscess of limb, unspecified L02.419 [place] [address] [id number] [place] [address] 61646- 8731 Jun, [place] [address] 62429- 3685 May, [place] [address] [place] [id number] [place] [address] 95510- 3612 May, [place] [address] 04475- 2959 Apr, Impingement syndrome, shoulder, left M75.42 and SLAP lesion of left shoulder S43.432A [place] [address] [place] [id number] [place] [address] 69962- 8284 Apr, [place] [address] [place] [id number] [place] [address] 49197- 9880 Apr, [place] [address] [place] [id number] [place] [address] 51431- 8444 Apr, [place] [address] [place] [id number] [place] [address] 73170- 2034 Apr, Cellulitis L03.90 ; Obese E66.9 ; Pain in left shoulder M25.512 and Edema, unspecified type R60.9 [place] [address] [place] [id number] [place] [address]- 7589 Mar, Obese E66.9 ; Pain in left shoulder M25.512 and Other chronic pain G89.29 [facility] [address] 15144- 6466 Feb, Anxiety about health F41.8 [facility] [address] [place] [id number] [place] [address] 52675- 3137 Feb, Obese E66.9 ; 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 ; Shortness of breath R06.02 ; Palpitations R00.2 ; Bipolar disorder with severe depression F31.4 and 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 [place] [address] 84960- 9800 Feb, Bipolar disorder with severe depression F31.4 [place] [address] 48204- 6047 Feb, Injury of left shoulder and upper arm, initial encounter S49.92XA [place] [address] 32270- 0332 January, [place] [address] 73726- 3550 Dec, Bipolar disorder with severe depression F31.4 [place] [address] [place] [id number] [place] [address] 06542- 8548 Dec, Obese E66.9 ; 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 ; Sleep apnea G47.30 ; Anxiety about health F41.8 and Bipolar disorder with severe depression F31.4 [facility] [address] 28363- 2700 Dec, Bipolar disorder with severe depression F31.4 [facility] [address] [place] [id number] [place] [address] 22823- 1543 Dec, Bipolar disorder with severe depression F31.4 and Other roasterman (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 Z79.899 [place] [id number] [place] [address] 30150- 2655 30 Nov, 2015 [facility] [address] [place] [id number] [place] [address] 59345- 1668 Nov, [facility] [address] [place] [id number] [place] [address] 24858- 3715 Nov, [place] [address] 83923- 3883 Nov, [place] [address] [place] [id number] [place] [address] 94591- 3214 Nov, Bipolar disorder with severe depression F31.4 [place] [address] [place] [id number] [place] [address] 91939- 0397 17 Nov, 2015 Bipolar disorder with severe depression F31.4 [place] [id number] [place] [address] 76903- 6052 16 Nov, 2015 Anxiety about health F41.8 ; Obese E66.9 ; 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 ; Bipolar disorder with severe depression F31.4 and Family history of obesity Z83.49 [place] [address] [id number] [place] [address] 96773- 9327 14 Nov, 2015 [place] [address] [place] [id number] [place] [address] 76189- 7440 Nov, Obese E66.9 ; 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 ; Cellulitis L03.90 ; Palpitations R00.2 ; Sleep apnea G47.30 and Shortness of breath R06.02 [place] [id number] [place] [address] 38798- 9428 Sep, UTI (urinary tract infection) N39.0 and Bronchitis J40 [place] [address] [place] [id number] [place] [address] 90493- 1025 Sep, [place] [address] [place] [id number] [place] [address] 46977- 0272 Mar, Left carpal tunnel syndrome 354.0 [facility] [address] [address]- 3161 Feb, Cellulitis 682.9 and Ankle edema 782.3 [facility] [address] [id number] [address]- 8221 Feb, [facility] [id number] [place] [address] 77677- 4734 January, Carpal tunnel syndrome on left 354.0 [facility] [address] [address]- 9580 January, Shoulder pain, left 719.41 [facility] [address] [id number] [place] [address] 58788- 4031 January, [facility] [address] [place] [id number] [place] [address] 33004- 8807 Dec, [facility] [address] [address]- 7276 Dec, [facility] [address] [address]- 9226 Oct, [facility] [address] [address]- 3095 Oct, [facility] [address] [address]- 3528 Oct, [facility] [address] [address]- 3328 Oct, [facility] [address] 3201 Sep, [facility] [address] [address]- 7324 Sep, [facility] [address] [address]- 6442 Aug, [facility] [place] [facility] [address] [id number] [place] [address]- 9541 08 Aug, 2014 [facility] [place] [facility] [address] [id number] [place] [address]- 2262 Jun, [facility] [place] [facility] [address] [id number] [place] [address]- 4826 Jun, [facility] [place] [facility] [address] [id number] [place] [address]- 1260 May, [facility] [place] [facility] [address] [id number] [place] [address]- 4637 May, [facility] [place] [facility] [address] [id number] [place] [address]- 4839 May, [facility] [place] [facility] [address] [id number] [place] [address]- 2426 May, [facility] [place] [facility] [address] [id number] [place] [address]- 5118 May, [facility] [place] [facility] [address] [id number] [place] [address]- 3029 May, [facility] [place] [facility] [address] [id number] [place] [address]- 5933 Apr, [facility] [place] [facility] [address] [id number] [place] [address]- 4353 Apr, [facility] [place] [facility] [address] [id number] [place] [address]- 2817 Apr, [facility] [place] [facility] [address] [id number] [place] [address]- 2960 Apr, [facility] [place] [facility] [address] [id number] [place] [address]- 6064 Apr, [facility] [place] [facility] [address] [id number] [place] [address]- 3412 Apr, [facility] [place] [facility] [address] [id number] [place] [address]- 7173 Apr, [facility] [place] [facility] [address] [id number] [place] [address]- 5169 Mar, [facility] [place] [facility] [address] [id number] [place] [address]- 7452 Mar, [facility] [place] [facility] [address] [id number] [place] [address]- 3349 Mar, [facility] [place] [facility] [address] [id number] [place] [address]- 1617 Mar, [facility] [place] [facility] [address] [id number] [place] [address]- 9804 Mar, [facility] [place] [facility] [address] [id number] [place] [address]- 5816 Mar, [facility] [place] [facility] [address] [id number] [place] [address]- 1849 Feb, [facility] [place] [facility] [address] [id number] [place] [address]- 5829 Feb, [facility] [place] [facility] [address] [id number] [place] [address]- 7761 Feb, [facility] [place] [facility] [address] [id number] [place] [address]- 7458 Feb, [facility] [place] [facility] [address] [id number] [place] [address]- 7842 January, [facility] [place] [facility] [address] [id number] [place] [address]- 0053 January, [facility] [place] [facility] [address] [id number] [place] [address]- 8604 January, [facility] [place] [facility] [address] [id number] [place] [address]- 2830 January, [facility] [place] [facility] [address] [id number] [place] [address]- 3236 January, [facility] [place] [facility] [address] [id number] [place] [address]- 2659 January, [facility] [place] [facility] [address] [id number] [place] [address]- 3614 January, [facility] [place] [facility] [address] [id number] [place] [address]- 9925 January, [facility] [place] [facility] [address] [id number] [place] [address]- 3275 January, [facility] [place] [facility] [address] [id number] [place] [address]- 3183 January, [facility] [place] [facility] [address] [id number] [place] [address]- 6297 January, [facility] [place] [facility] [address] [id number] [place] [address]- 3939 Dec, [facility] [place] [facility] [address] [id number] [place] [address]- 9814 Dec, [facility] [place] [facility] [address] [id number] [place] [address]- 9967 Dec, [facility] [place] [facility] [address] [id number] [place] [address]- 1399 Dec, [facility] [place] [facility] [address] [id number] [place] [address]- 8813 Nov, [facility] [place] [facility] [address] [id number] [place] [address]- 7765 Nov, [facility] [place] [facility] [address] [id number] [place] [address]- 5300 Oct, [facility] [place] [facility] [address] [id number] [place] [address]- 2587 Oct, [facility] [place] [facility] [address] [id number] [place] [address]- 2250 Oct, [facility] [place] [facility] [address] [id number] [place] [address]- 9543 Oct, [facility] [address] [id number] [place] [address]- 0719 Sep, [facility] [place] [facility] [address] [id number] [place] [address]- 4047 Sep, [facility] [place] [facility] [address] [id number] [place] [address]- 4245 Sep, [facility] [place] [facility] [address] [id number] [place] [address]- 6808 Sep, [facility] [place] [facility] [address] [id number] [place] [address]- 9856 Sep, [facility] [place] [facility] [address] [id number] [place] [address]- 4773 Sep, [facility] [place] [facility] [address] [id number] [place] [address]- 1979 Aug, [facility] [place] [facility] [address] [id number] [place] [address]- 9745 Aug, [facility] [place] [facility] [address] [id number] [place] [address]- 4775 Aug, [facility] [place] [facility] [address] [id number] [place] [address]- 2186 Aug, [facility] [place] [facility] [address] [id number] [place] [address]- 6547 Aug, [facility] [place] [facility] [address] [id number] [address]- 7664 Aug, [facility] [place] [facility] [address] [id number] [place] [address]- 7547 Aug, [facility] [place] [facility] [address] [id number] [place] [address]- 4674 Aug, [facility] [place] [facility] [address] [id number], [place] [address]- 6385 Aug, [facility] [place] [facility] [address] [id number] [address]- 3790 Aug, [facility] [place] [facility] [address] [id number] [place] [address]- 0301 Jul, [facility] [place] [facility] [address] [id number] [place] [address]- 5963 Jul, [facility] [place] [facility] [address] [id number] [place] [address]- 9132 Jul, [facility] [place] [facility] [address] [id number] [place] [address]- 0734 Jul, [facility] [place] [facility] [address] [id number] [place] [address]- 3754 Jun, [facility] [place] [facility] [address] [id number] [place] [address]- 1916 Jun, [facility] [place] [facility] [address] [id number] [place] [address]- 6362 Jun, [facility] [place] [facility] [address] [id number] [place] [address]- 6917 Jun, [facility] [place] [facility] [address] [id number] [place] [address]- 9543 Jun, [facility] [place] [facility] [address] [id number] [place] [address]- 8064 May, [facility] [place] [facility] [address] [id number] [place] [address]- 5086 May, [facility] [place] [facility] [address] [id number] [place] [address]- 4898 Apr, [facility] [place] [facility] [address] [id number] [place] [address]- 7617 Mar, [facility] [place] [facility] [address] [id number] [place] [address]- 3199 Mar, [facility] [place] [facility] [address] [facility] [id number] [place] [address]- 3987 Mar, [facility] [place] [facility] [address] [id number] [place] [address]- 7059 09 Mar, 2013 [facility] [place] [facility] [address] [id number] [place] [address]- 1968 05 Mar, 2013 [facility] [place] [facility] [address] [id number] [place] [address] 2546 Mar, [facility] [place] [facility] [address] [id number] [place] [address]- [address] 18 Feb, 2013 [facility] [place] [facility] [address] [id number] [place] [address] 18 Feb, 2013 [facility] [place] [facility] [address] [id number] [place] [address] 16 Feb, 2013 [facility] [place] [facility] [address] [id number] [place] [address] 15 Feb, 2013 [facility] [place] [facility] [address] [id number] [place] [address] 14 Feb, 2013 [facility] [place] [facility] [address] [id number] [place] [address] Feb, [facility] [place] [facility] [address] [id number] [place] [address] Feb, [facility] [place] [facility] [address] [id number] [place] [address] January, [facility] [place] [facility] [address] [id number] [place] [address] January, [facility] [place] [facility] [address] [id number] [place] [address] Nov, [facility] [place] [facility] [address] [id number] [place] [address] Nov, [facility] [place] [facility] [address] [id number] [place] [address] Nov, [facility] [place] [facility] [address] [id number] [place] [address] Nov, [facility] [place] [facility] [address] [id number] [place] [address] Oct, [facility] [place] [facility] [address] [id number] [place] [address] Oct, [facility] [place] [facility] [address] [id number] [place] [address] Oct, [facility] [place] [facility] [address] [id number] [place] [address] Sep, [facility] [place] [facility] [address] [id number] [place] [address] Sep, [facility] [place] [facility] [address] [id number] [place] [address]- [address] Sep, [facility] [place] [facility] [address] [id number] [place] [address] Sep, [facility] [place] [facility] [address] [id number] [place] [address] Aug, [facility] [place] [facility] [address] [id number] [place] [address] Aug, [facility] [place] [facility] [address] [id number] [place] [address] Jul, [facility] [place] [facility] [address] [id number], [place] [address] Jul, [facility] [place] [facility] [address] [id number], [place] [address] Jun, [facility] [place] [facility] [address] [id number] [place] [address] Jun, [facility] [place] [facility] [address] [id number] [place] [address] Jun, [facility] [place] [facility] [address] [id number] [place] [address] Jun, [facility] [place] [facility] [address] [id number] [place] [address] Jun, [facility] [address] [id number] [place] [address]- [address] Jun, [facility] [place] [facility] [address] [id number] [place] [address] Jun, [facility] [place] [facility] [address] [id number] [place] [address] Jun, [facility] [place] [facility] [address] [id number] [place] [address] Jun, [facility] [place] [facility] [address] [id number] [place] [address] Jun, [facility] [place] [facility] [address] [id number] [place] [address] Jun, [facility] [place] [facility] [address] [id number] [place] [address] Jun, [facility] [place] [facility] [address] [id number] [place] [address] 18 Jun, 2012 [facility] [place] [facility] [address] [id number] [place] [address] Jun, [facility] [place] [facility] [address] [id number] [place] [address] Jun, [facility] [place] [facility] [address] [id number] [place] [address] Jun, [facility] [place] [facility] [address] [id number] [place] [address] 29 May, 2012 [facility] [place] [facility] [address] [id number] [place] [address]- [address] 26 May, 2012 [facility] [place] [facility] [address] [id number] [place] [address] 25 May, 2012 [facility] [place] [facility] [address] [id number] [place] [address] May, [facility] [place] [facility] [address] [id number] [place] [address] May, [facility] [place] [facility] [address] [id number] [place] [place] [address] Mar, [facility] [place] [facility] [address] [id number] [place] [address] Mar, [facility] [place] [facility] [address] [id number] [place] [address] Mar, [facility] [place] [facility] [address] [id number] [place] [address] Mar, [facility] [place] [facility] [address] [id number] [place] [address] Mar, [facility] [place] [facility] [address] [id number] [place] [address] Mar, [facility] [place] [facility] [address] [id number] [place] [address] Feb, [facility] [place] [facility] [address] [id number] [place] [address] Feb, [facility] [place] [facility] [address] [id number] [place] [address] Feb, [facility] [place] [facility] [address] [id number] [place] [address] Feb, [facility] [place] [facility] [address] [id number] [address] Feb, [facility] [place] [facility] [address] [id number] [place] [address] January, [facility] [place] [facility] [address] [id number] [place] [address] Dec, [facility] [place] [facility] [address] [id number] [place] [address] Dec, [facility] [place] [facility] [address] [id number], [place] [address] Dec, [facility] [id number] [address] Dec, [facility] [id number] [address] Dec, [facility] [id number] [address] Nov, [facility] [id number] [address] [address] Oct, [facility] [id number] [place] [address] Sep, [facility] [address] [id number] [address] Aug, [facility] [id number] [address] Jul, [facility] [id number], [place] [address] Jul, [facility] [id number], [place] [address] Jul, [facility] [id number], [place] [address] Apr, [facility] [id number] [address] Apr, [facility] [id number], [place] [address] Apr, [facility] [id number] [address] January, IMMUNIZATIONS No Known Immunizations SOCIAL HISTORY Never Assessed REASON FOR VISIT Requests return call PLAN OF CARE VITAL SIGNS MEDICATIONS Unknown [...] bronchitis ER visit -04/15-06-30 Hospitalization History Celluliti BLE-[facility] 02/08/17 Hospitalization History Cellulitis-[facility] 04/22/17 Hospitalization History cellulitis-[facility] December 2017
--- OUTSIDE RECORDS SUMMARY | 2018-10-07 16:06 | XMS REPORT ---
Author Author CAROLYNE STARR [facility] Address [address] [place] [address] Care Team Providers Care Tear Down Man Name Role Phone CAROLYNE STARR Unavailable PROBLEMS Type Condition ICD9-CM Code LRQ25-MI Code Onset Dates Condition Status SNOMED Code Problem Cervical radiculopathy M54.12 Active 97137736 Problem Morbid obesity E66.01 Active 051376704 Problem Mild intermittent asthma without complication J45.20 Active 881141456 Problem Sleep apnea G47.30 Active 06362652 Problem Bipolar disorder with severe depression F31.4 Active 431967707 Problem Pain in left shoulder M25.512 Active 03031237 Problem 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 247514825 Problem Bipolar affective disorder, currently depressed, mild F31.31 Active 303674917 Problem Alcohol use disorder, mild, abuse F10.10 Active 21186189 Problem Cervical disc disease M50.90 Active 066819338 Problem Venous insufficiency I87.2 Active 24361006 Problem Cocaine use disorder, severe, 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 Active 20149670 Problem Methamphetamine use disorder, severe, 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 Active 45305683 ALLERGIES No Information ENCOUNTERS Encounter Location Date Diagnosis [place] [id number] [place] [address] 01851- 3421 07 Feb, 2018 [place] [address] [place] [id number] [place] [address] 12772- 8830 January, [place] [id number] [place] [address] 63262- 7887 15 Jan, 2018 Medicare annual wellness visit, initial Z00.00 ; Morbid obesity E66.01 ; Mild intermittent asthma without complication J45.20 ; Bipolar disorder with severe depression F31.4 ; 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 ; Venous insufficiency I87.2 and Encounter for immunization Z23 [facility] [id number] [place] [address] 18146- 7382 January, [place] [address] 87550- 4335 January, Cellulitis of left lower extremity L03.116 and BMI 50.0-59.9 , adult Z68.43 [place] [address] 89443- 9592 Dec, Non-pressure chronic ulcer of left calf, 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 ; History of cellulitis Z87.2 and BMI 50.0-59.9, adult Z68.43 [facility] [address] 25163 -8032 Dec, Cloudy urine R82.90 ; Cellulitis of lower extremity, unspecified laterality L03.119 and BMI 50.0-59.9, adult Z68.43 [place] [id number] [place] [address] 76436- 4873 Nov, Sleep apnea G47.30 [place] [id number] [place] [address] 56191- 9646 08 Nov, 2017 Bipolar affective disorder, currently depressed, mild F31.31 ; Methamphetamine use disorder, severe, 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 ; Cocaine use disorder, severe, 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 ; Alcohol use disorder, mild, abuse F10.10 and BMI 50.0-59.9, adult Z68.43 [place] [id number] [place] [address] 30027- 9437 15 Oct, 2017 BMI 50.0-59.9, adult Z68.43 ; Bipolar affective disorder, currently depressed, mild F31.31 ; Methamphetamine use disorder, severe, 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 ; Cocaine use disorder, severe, 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 and Alcohol use disorder, mild, abuse F10.10 [place] [id number] [place] [address] 77492- 4773 14 Oct, 2017 [place] [id number] [place] [address] 60986- 5531 Oct, BMI 50.0-59.9, adult Z68.43 ; 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 and Morbid obesity E66.01 [facility] [id number] [place] [address] 57054 -7309 Sep, Acute suppurative otitis media of right ear without spontaneous rupture of tympanic membrane, recurrence not specified H66.001 and BMI 60.0-69.9, adult Z68.44 [facility] [address] [place] [id number] [place] [address] 61809- 1800 Sep, [facility] [address] 50928- 9996 Aug, Cervical disc disease M50.90 [facility] [address] [id number] [place] [address] 10027- 6944 Aug, [facility] [id number] [place] [address] 25760- 2507 Aug, Mild intermittent asthma without complication J45.20 ; Cervical radiculopathy M54.12 ; Venous insufficiency I87.2 ; Morbid obesity E66.01 and BMI 50.0-59.9, adult Z68.43 [facility] [id number] [place] [address] 17825- 6721 Jun, [facility] [id number] [place] [address] 69830- 9927 May, [facility] [address] [place] [id number] [place] [address] 91074- 5735 Apr, [facility] [address] 68630- 8818 Apr, 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 [facility] [address] [place] [id number] [place] [address] [id number] Apr, [facility] [address] 97006- 3154 Apr, 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 [facility] [address] [address] 3601 Apr, Cellulitis of left lower extremity L03.116 ; Localized edema R60.0 ; 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 and Bipolar disorder with severe depression F31.4 [facility] [id number] [place] [address] 87885- 4617 Apr, Cellulitis of unspecified part of limb L03.119 and 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 [facility] [id number] [place] [address] 25072- 8400 Mar, [facility] [id number] [place] [address] 49830 -6370 Mar, Cellulitis of left lower limb L03.116 [facility] [address] [id number] [place] [address] 18528- 8648 Mar, 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 and Cellulitis L03.90 [facility] [address] [place] [address] [id number] [place] [address] 55102- 8462 Mar, Bronchitis J40 and Cellulitis L03.90 [facility] [address] [id number] [place] [address] 24117- 7396 January, [facility] [id number] [place] [address] 92327- 7055 January, [facility] [id number] [place] [address] 33339- 3607 Nov, 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 ; Cellulitis L03.90 ; Obese E66.9 ; Pain in left shoulder M25.512 ; Localized edema R60.0 ; Sleep apnea G47.30 ; Anxiety about health F41.8 and Bipolar disorder with severe depression F31.4 [facility] [address] [address]- 1641 Aug, Obese E66.9 ; 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 ; Sleep apnea G47.30 ; Cellulitis L03.90 ; Cellulitis of unspecified part of limb L03.119 ; Intractable tension-type headache, unspecified chronicity pattern G44.201 ; Concussion, without loss of consciousness, subsequent encounter S06.0X0D and Localized edema R60.0 [place] [id number] [place] [address] 36458- 4631 Jun, [place] [address] 47206- 8050 Jun, 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 ; Other chronic pain G89.29 ; Cellulitis of unspecified part of limb L03.119 and Cutaneous abscess of limb, unspecified L02.419 [place] [id number] [place] [address] 58138- 8357 Jun, [place] [address] 49662- 5264 May, [place] [address] [id number] [place] [address] 20086- 9776 May, [place] [address] 58422- 4976 Apr, Impingement syndrome, shoulder, left M75.42 and SLAP lesion of left shoulder S43.432A [place] [address] [id number] [place] [address] 32675- 2854 Apr, [place] [address] [id number] [place] [address] 63571- 4102 Apr, [place] [address] [id number] [place] [address] 55870- 4930 Apr, [place] [address] [id number] [place] [address] 18866- 1885 Apr, Cellulitis L03.90 ; Obese E66.9 ; Pain in left shoulder M25.512 and Edema, unspecified type R60.9 [place] [address] [place] [id number] [place] [address]- 1961 Mar, Obese E66.9 ; Pain in left shoulder M25.512 and Other chronic pain G89.29 [facility] [address] 10533- 7624 Feb, Anxiety about health F41.8 [facility] [address] [place] [id number] [place] [address] 01750- 9509 Feb, Obese E66.9 ; 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 ; Shortness of breath R06.02 ; Palpitations R00.2 ; Bipolar disorder with severe depression F31.4 and 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 E40 [place] [address] 04608- 8165 Feb, Bipolar disorder with severe depression F31.4 [place] [address] 75936- 4885 Feb, Injury of left shoulder and upper arm, initial encounter S49.92XA [place] [address] 57934- 6287 January, [place] [address] 51532- 5007 Dec, Bipolar disorder with severe depression F31.4 [place] [address] [place] [id number] [place] [address] 11460- 8995 Dec, Obese E66.9 ; 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 ; Sleep apnea G47.30 ; Anxiety about health F41.8 and Bipolar disorder with severe depression F31.4 [facility] [address] 18368- 5616 Dec, Bipolar disorder with severe depression F31.4 [facility] [id number] [place] [address] 00827- 5612 Dec, Bipolar disorder with severe depression F31.4 and Other meterman (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 Z79.899 [place] [address] [place] [address] 45894- 6169 30 Nov, 2015 [facility] [address] [place] [id number] [place] [address] 27343- 7044 Nov, [facility] [address] [id number] [place] [address] 54810- 9566 Nov, [place] [address] 65681- 1910 Nov, [place] [address] [address] [id number] [place] [address] 63577- 0255 Nov, Bipolar disorder with severe depression F31.4 [place] [address] [id number] [place] [address] 29102- 9221 17 Nov, 2015 Bipolar disorder with severe depression F31.4 [place] [address] [id number] [place] [address] 22196- 6838 16 Nov, 2015 Anxiety about health F41.8 ; Obese E66.9 ; 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 ; Bipolar disorder with severe depression F31.4 and Family history of obesity Z83.49 [place] [id number] [place] [address] 80848- 4265 14 Nov, 2015 [place] [address] [id number] [place] [address] 61875- 4740 Nov, Obese E66.9 ; 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 [address] [address]- 6120 Feb, Cellulitis 682.9 and Ankle edema 782.3 [facility] [id number] [address]- 7320 Feb, [facility] [id number] [place] [address] 81976- 5077 January, Carpal tunnel syndrome on left 354.0 [facility] [address] [address]- 5217 January, Shoulder pain, left 719.41 [facility] [id number] [place] [address] 11569- 2754 January, [facility] [id number] [place] [address] 02400- 4723 Dec, [facility] [address] [address]- 0020 Dec, [facility] [address] [address]- 8209 Oct, [facility] [address] [address]- 8427 Oct, [facility] [address] [address]- 9142 Oct, [facility] [address] [address]- 8126 Oct, [facility] [address] [address] Sep, [facility] [address] [address]- 6290 Sep, [facility] [address] [address]- 5069 Aug, [facility] [place] [facility] [address] [id number] [place] [address]- 4101 08 Aug, 2014 [facility] [place] [facility] [address] [id number] [place] [address]- 5625 Jun, [facility] [place] [facility] [address] [id number] [place] [address]- 1276 Jun, [facility] [place] [facility] [address] [id number] [place] [address]- 4618 May, [facility] [place] [facility] [address] [id number] [place] [address]- 9216 May, [facility] [place] [facility] [address] [id number] [place] [address]- 6176 May, [facility] [place] [facility] [address] [id number] [place] [address]- 3977 May, [facility] [place] [facility] [address] [id number] [place] [address]- 0415 May, [facility] [place] [facility] [address] [id number] [place] [address]- 3931 May, [facility] [place] [facility] [address] [id number] [place] [address]- 3264 Apr, [facility] [place] [facility] [address] [id number] [place] [address]- 6262 Apr, [facility] [place] [facility] [address] [id number] [place] [address]- 0622 Apr, [facility] [place] [facility] [address] [id number] [place] [address]- 5003 Apr, [facility] [place] [facility] [address] [id number] [place] [address]- 7152 Apr, [facility] [place] [facility] [address] [id number] [place] [address]- 8059 Apr, [facility] [place] [facility] [address] [id number] [place] [address]- 3165 Apr, [facility] [place] [facility] [address] [id number] [place] [address]- 6479 Mar, [facility] [place] [facility] [address] [id number] [place] [address]- 2893 Mar, [facility] [place] [facility] [address] [id number] [place] [address]- 6064 Mar, [facility] [place] [facility] [address] [id number] [place] [address]- 3502 Mar, [facility] [place] [facility] [address] [id number] [place] [address]- 2048 Mar, [facility] [place] [facility] [address] [id number] [place] [address]- 9248 Mar, [facility] [place] [facility] [address] [id number] [place] [address]- 8500 Feb, [facility] [place] [facility] [address] [id number] [place] [address]- 7623 Feb, [facility] [place] [facility] [address] [id number] [place] [address]- 0831 Feb, [facility] [place] [facility] [address] [id number] [place] [address]- 3337 Feb, [facility] [place] [facility] [address] [id number] [place] [address]- 8229 January, [facility] [place] [facility] [address] [id number] [place] [address]- 0051 January, [facility] [place] [facility] [address] [id number] [place] [address]- 7232 January, [facility] [place] [facility] [address] [id number] [place] [address]- 2363 January, [facility] [place] [facility] [address] [id number] [place] [address]- 9791 January, [facility] [place] [facility] [address] [id number] [place] [address]- 4854 January, [facility] [place] [facility] [address] [id number] [place] [address]- 0006 January, [facility] [place] [facility] [address] [id number] [place] [address]- 8973 January, [facility] [place] [facility] [address] [id number] [place] [address]- 0159 January, [facility] [place] [facility] [address] [id number] [place] [address]- 9344 January, [facility] [place] [facility] [address] [id number] [place] [address]- 3620 January, [facility] [place] [facility] [address] [id number] [place] [address]- 1584 Dec, [facility] [place] [facility] [address] [id number] [place] [address]- 4352 Dec, [facility] [place] [facility] [address] [id number] [place] [address]- 4571 Dec, [facility] [place] [facility] [address] [id number] [place] [address]- 5057 Dec, [facility] [place] [facility] [address] [id number] [place] [address]- 5246 Nov, [facility] [place] [facility] [address] [id number] [place] [address]- 6205 Nov, [facility] [place] [facility] [address] [id number] [place] [address]- 1370 Oct, [facility] [place] [facility] [address] [id number] [place] [address]- 3354 Oct, [facility] [place] [facility] [address] [id number] [place] [address]- 0129 Oct, [facility] [place] [facility] [address] [id number] [place] [address]- 7045 Oct, [facility] [address] [id number] [place] [address]- 6736 Sep, [facility] [place] [facility] [address] [id number] [place] [address]- 7120 Sep, [facility] [place] [facility] [address] [id number] [place] [address]- 8197 Sep, [facility] [place] [facility] [address] [id number] [place] [address]- 4902 Sep, [facility] [place] [facility] [address] [id number] [place] [address]- 5621 Sep, [facility] [place] [facility] [address] [id number] [place] [address]- 1115 Sep, [facility] [place] [facility] [address] [id number] [place] [address]- 9784 Aug, [facility] [place] [facility] [address] [id number] [place] [address]- 9179 Aug, [facility] [place] [facility] [address] [id number] [place] [address]- 1986 Aug, [facility] [place] [facility] [address] [id number] [place] [address]- 5541 Aug, [facility] [place] [facility] [address] [id number] [place] [address]- 4183 Aug, [facility] [place] [facility] [address] [id number], [place] [address]- 8464 Aug, [facility] [place] [facility] [address] [id number] [place] [address]- 9605 Aug, [facility] [place] [facility] [address] [id number] [place] [address]- 6680 Aug, [facility] [place] [facility] [address] [id number], [place] [address]- 4035 Aug, [facility] [place] [facility] [address] [id number], [place] [address]- 0481 Aug, [facility] [place] [facility] [address] [id number] [place] [address]- 5201 Jul, [facility] [place] [facility] [address] [id number] [place] [address]- 7410 Jul, [facility] [place] [facility] [address] [id number] [place] [address]- 2057 Jul, [facility] [place] [facility] [address] [id number] [place] [address]- 7417 Jul, [facility] [place] [facility] [address] [id number] [place] [address]- 5721 Jun, [facility] [place] [facility] [address] [id number] [place] [address]- 8985 Jun, [facility] [place] [facility] [address] [id number] [place] [address]- 4993 Jun, [facility] [place] [facility] [address] [id number] [place] [address]- 9236 Jun, [facility] [place] [facility] [address] [id number] [place] [address]- 8626 Jun, [facility] [place] [facility] [address] [id number] [place] [address]- 8385 May, [facility] [place] [facility] [address] [id number] [place] [address]- 9196 May, [facility] [place] [facility] [address] [id number] [place] [address]- 8716 Apr, [facility] [place] [facility] [address] [id number] [place] [address]- 2169 Mar, [facility] [place] [facility] [address] [id number] [place] [address]- 9159 Mar, [facility] [place] [facility] [address] [facility] [id number] [place] [address]- 1868 Mar, [facility] [place] [facility] [address] [id number] [place] [address]- 6036 09 Mar, 2013 [facility] [place] [facility] [address] [id number] [place] [address]- 3744 05 Mar, 2013 [facility] [place] [facility] [address] [id number] [place] [address] 2546 Mar, [facility] [place] [facility] [address] [id number] [place] [address]- 3841 18 Feb, 2013 [facility] [place] [facility] [address] [id number] [place] [address]- 2479 18 Feb, 2013 [facility] [place] [facility] [address] [id number] [place] [address] 16 Feb, 2013 [facility] [place] [facility] [address] [id number] [place] [address] 15 Feb, 2013 [facility] [place] [facility] [address] [id number] [place] [address] 14 Feb, 2013 [facility] [place] [facility] [address] [id number] [place] [address] Feb, [facility] [place] [facility] [address] [id number] [place] [address] Feb, [facility] [place] [facility] [address] [id number] [place] [address] January, [facility] [place] [facility] [address] [id number] [place] [address] January, [facility] [place] [facility] [address] [id number] [place] [address] Nov, [facility] [place] [facility] [address] [id number] [place] [address] Nov, [facility] [place] [facility] [address] [id number] [place] [address] Nov, [facility] [place] [facility] [address] [id number] [place] [address] Nov, [facility] [place] [facility] [address] [id number] [place] [address] Oct, [facility] [place] [facility] [address] [id number] [place] [address] Oct, [facility] [place] [facility] [address] [id number] [place] [address] Oct, [facility] [place] [facility] [address] [id number] [place] [address] Sep, [facility] [place] [facility] [address] [id number] [place] [address] Sep, [facility] [place] [facility] [address] [id number] [place] [address] Sep, [facility] [place] [facility] [address] [id number] [place] [address] Sep, [facility] [place] [facility] [address] [id number] [place] [address] Aug, [facility] [place] [facility] [address] [id number] [place] [address] Aug, [facility] [place] [facility] [address] [id number] [place] [address] Jul, [facility] [place] [facility] [address] [id number] [address] Jul, [facility] [place] [facility] [address] [id number], [place] [address] Jun, [facility] [place] [facility] [address] [id number] [place] [address]- [address] Jun, [facility] [place] [facility] [address] [id number] [place] [address] Jun, [facility] [place] [facility] [address] [id number] [place] [address]- [address] Jun, [facility] [place] [facility] [address] [id number] [place] [address] Jun, [facility] [address] [id number] [place] [address] Jun, [facility] [place] [facility] [address] [id number] [place] [address]- [address] Jun, [facility] [place] [facility] [address] [id number] [place] [address] Jun, [facility] [place] [facility] [address] [id number] [place] [address] Jun, [facility] [place] [facility] [address] [id number] [place] [address]- [address] Jun, [facility] [place] [facility] [address] [id number] [place] [address] Jun, [facility] [place] [facility] [address] [id number] [place] [address]- [address] Jun, [facility] [place] [facility] [address] [id number] [place] [address] 18 Jun, 2012 [facility] [place] [facility] [address] [id number] [place] [address] Jun, [facility] [place] [facility] [address] [id number] [place] [address]- [address] Jun, [facility] [place] [facility] [address] [id number] [place] [address]- [address] Jun, [facility] [place] [facility] [address] [id number] [place] [address] 29 May, 2012 [facility] [place] [facility] [address] [id number] [place] [address] 26 May, 2012 [facility] [place] [facility] [address] [id number] [place] [address] 25 May, 2012 [facility] [place] [facility] [address] [id number] [place] [address] May, [facility] [place] [facility] [address] [id number] [place] [address] May, [facility] [place] [facility] [address] [id number] [place] [address] Mar, [facility] [place] [facility] [address] [id number] [place] [id number] Mar, [facility] [place] [facility] [address] [id number] [place] [address] Mar, [facility] [place] [facility] [address] [id number] [place] [address] Mar, [facility] [place] [facility] [address] [id number] [place] [address] Mar, [facility] [place] [facility] [address] [id number] [place] [address] Mar, [facility] [place] [facility] [address] [id number] [place] [address] Feb, [facility] [place] [facility] [address] [id number] [place] [address] Feb, [facility] [place] [facility] [address] [id number] [place] [address] Feb, [facility] [place] [facility] [address] [id number] [place] [address] Feb, [facility] [place] [facility] [address] [id number] [address] Feb, [facility] [place] [facility] [address] [id number] [place] [address] January, [facility] [place] [facility] [address] [id number] [place] [address] Dec, [facility] [place] [facility] [address] [id number] [place] [address] Dec, [facility] [place] [facility] [address] [id number], [place] [address] Dec, [facility] [id number], [place] [address] Dec, [facility] [id number], [place] [address] Dec, [facility] [id number], [place] [address] Nov, [facility] [id number] [place] [address] Oct, [facility] [id number] [place] [address] Sep, [facility] [id number] [place] [address] Aug, [facility] [id number] [place] [address] Jul, [facility] [address] [id number], [place] [address] Jul, [facility] [id number] [place] [address] Jul, [facility] [address], [place] [address] Apr, [facility] [address], [place] [address] Apr, [facility] [id number], [place] [address] Apr, [facility] [id number] [address] January, IMMUNIZATIONS No Known Immunizations SOCIAL HISTORY Never Assessed REASON FOR VISIT PLAN OF CARE VITAL SIGNS MEDICATIONS Unknown [...] bronchitis ER visit -04/15-06-30 Hospitalization History Celluliti BLE-[facility] 02/08/17 Hospitalization History Cellulitis-[facility] 04/22/17 Hospitalization History cellulitis-[facility] December 2017
== END 2018-10-07 15:02 | disposition home or self-care (01) ==
LOC: EDUNIT# 13:00 → ER 13:01
DX: L11.0 Acquired keratosis follicularis (principal); L08.9 Local infection of the skin and subcutaneous tissue, unspecified; G47.30 Sleep apnea, unspecified; I10 Essential (primary) hypertension; K58.9 Irritable bowel syndrome, unspecified; E11.9 Type 2 diabetes mellitus without complications; E66.01 Morbid (severe) obesity due to excess calories; F41.9 Anxiety disorder, unspecified; F98.8 Other specified behavioral and emotional disorders with onset usually occurring in childhood and adolescence; F90.9 Attention-deficit hyperactivity disorder, unspecified type; F31.9 Bipolar disorder, unspecified; F20.9 Schizophrenia, unspecified; Z91.5 Personal history of self-harm; Z87.19 Personal history of other diseases of the digestive system; Z87.448 Personal history of other diseases of urinary system; Z82.49 Family history of ischemic heart disease and other diseases of the circulatory system; Z87.440 Personal history of urinary (tract) infections; Z87.442 Personal history of urinary calculi; Z79.51 Long term (current) use of inhaled steroids; Z87.891 Personal history of nicotine dependence; Z90.89 Acquired absence of other organs; Z90.49 Acquired absence of other specified parts of digestive tract; Z98.51 Tubal ligation status; Z96.22 Myringotomy tube(s) status; Z87.09 Personal history of other diseases of the respiratory system
CPT/HCPCS: 36415; 80053; 81000; 83605; 84703; 85025; 87040; 87070; 87077; 87088; 87205

== ENCOUNTER 2019-02-19 21:51 | Outpatient (RCR) | payer OTHER, MEDICAID ==
[2019-02-15 10:45] VITALS: BP 119/76
[2019-02-15] MEDS: VANCOMYCIN 2000 MG/NS 500 ML IVPB IV SCH ×4 (11:47→21:24)
--- NOTE | 2019-02-15 13:50 | NUR ---
PT. C/O ITCHING ON NECK/BACK AT THE END OF INFUSION. VITAL SIGNS ARE 99.2, 77, 16, 114/75, 98%. PT. STATED SHE HAS HAD VANCO BEFORE ABOUT A YEAR AGO BUT IT WAS BEFORE HER GASTRIC PROCEDURE. THIS NURSE WILL CALL
--- NOTE | 2019-02-15 14:40 | NUR ---
DR. STARR'S OFFICE CALLED AT THIS TIME, KEEP ORDER FOR IV ANTIBIOTIC FOR 7 DAYS AT THIS TIME. NEW ORDER FOR PT. TO RECEIVE 50 MG IV BENADRYL BEFORE EACH INFUSION (1000 & 2200)
[2019-02-16 00:39] VITALS: BP 109/73
[2019-02-16] MEDS: diphenhydrAMINE 50 MG/ML INJ (BENADRYL) IVP SCH (09:42)
[2019-02-16] MEDS: VANCOMYCIN 2000 MG/NS 500 ML IVPB IV SCH ×2 (09:43)
[2019-02-16 12:00] VITALS: BP 97/70
--- NOTE | 2019-02-16 21:45 | NUR ---
Vanco trough drawn at this time. VS 97.4 - 67 - 20 - 130/70 - 100% on RA. Awaiting lab results.
--- NOTE | 2019-02-16 22:15 | NUR ---
Vanco trough is at 20.8. Informed pt that they will not be receiving IV dose of Vancomycin tonight and to return in AM for scheduled dose.
[2019-02-17] VITALS: BP 120/69
--- NOTE | 2019-02-17 09:25 | NUR ---
PT ARRIVED FOR VANCO INFUSION. CONTACTED MANOLO FRANKLIN, PHARMACIST, REGARDING POSSIBLE VANCO TROUGH ORDER FOR TODAY. STATES SHE DOES NOT WANT A VANCO TROUGH DRAWN TODAY AND WE ARE TO PROCEED WITH THE VANCO 1750 MG DOSE SCHEDULED.
[2019-02-17] MEDS: diphenhydrAMINE 50 MG/ML INJ (BENADRYL) IVP SCH ×2 (09:39→21:52)
[2019-02-17] MEDS: VANCOMYCIN INJECTION 1,750 MG in NS IV 500 ML 500 ML IV SCH ×2 (09:50→21:53)
[2019-02-17 11:53] VITALS: BP 127/81
[2019-02-18] VITALS: BP 115/86
[2019-02-18] MEDS: diphenhydrAMINE 50 MG/ML INJ (BENADRYL) IVP SCH ×2 (09:22→21:03)
[2019-02-18] MEDS: VANCOMYCIN INJECTION 1,750 MG in NS IV 500 ML 500 ML IV SCH ×2 (09:23→21:03)
[2019-02-18 09:24] VITALS: BP 117/84
[2019-02-18 21:07] VITALS: BP 115/81
[~2019-02-19] VITALS: Ht 165.1 cm; Wt 98.6 kg
[2019-02-19 08:45] VITALS: BP 118/85
[2019-02-19] MEDS: VANCOMYCIN INJECTION 1,750 MG in NS IV 500 ML 500 ML IV SCH ×2 (09:05→21:52)
[2019-02-19] MEDS: diphenhydrAMINE 50 MG/ML INJ (BENADRYL) IVP SCH ×2 (09:05→21:51)
[2019-02-19 21:50] VITALS: BP 133/75
--- NOTE | 2019-02-19 21:50 | NUR ---
PATIENT'S MIDLINE SLIGHTLY PINK WITH MILD EDEMA. PATIENT REPORTS MIDLINE HAS LOOKED THIS WAY FOR THE PAST TWO DAYS, ASLO REPORTS SLIGHT TENDERNESS, BUT HAD NO ISSUES INFUSING VANCO THE PAST TWO DAYS. THIS RN FLUSHES MIDLINE WITH 10CC NS WITHOUT RESISTANCE, HOWEVER WILL NOT DRAW BACK BLOOD. PATIENT REPORTS MIDLINE HAS NOT BEEN ABLE TO DRAW BLOOD SINCE INSERTION. ANTIBIOTICS STARTED, WILL CONTINUE TO MONITOR.
[~2019-02-19 21:51] MED LIST changes: +TROUGH ORDER-PHARMACY XX NR; +VANCOMYCIN 1500 MG/NS 500 ML IVPB IV SCH; +diphenhydrAMINE 50 MG/ML INJ (BENADRYL) IVP ONE
--- NOTE | 2019-02-19 21:55 | NUR ---
PATIENT INFORMS THIS RN MIDLINE IS SUPPOSE TO BE REMOVED AFTER THIS INFUSION DUE TO VACATION. NOTE ON PAPER CHART STATES TONIGHT IS PT LAST DOSE. PATIENT ALSO INFORMS THIS RN THAT AMANDA WILLARD RN TALKED TO DR. STARR AND MIDLINE CAN BE REMOVED EARLY SO PATIENT CAN GO ON VACATION. THIS RN STATES UNDERSTANDING MIDLINE WILL BE REMOVED AFTER INFUSION PER PATIENT REQUEST.
--- NOTE | 2019-02-19 22:30 | NUR ---
IV PUMP BEEPING STATED DISTAL OCCLUSION, INCREASED SWELLING AND REDNESS NOTED, IV FLUIDS STOPPED. PATIENT STATES INCREASED TENDERNESS. THIS RN INFORMS PATIENT THAT A PERIPHERAL IV MUST BE STARTED TO FINISH VANCO INFUSION, PT REFUSED. REQUESTED MIDLINE TO BE TAKEN OUT. MIDLINE REMOVED BY GARRY BURKS RN, CATH TIP INTACT, PRESSURE HELD. PATIENT INFORMED TO GO TO ER IF PAIN WORSENS, IF STARTS RUNNING A FEVER, OR IF ANY OTHER CONCERNS. PT STATES UNDERSTANDING.
== END 2019-05-16 | disposition home or self-care (01) ==
LOC: 4TH RCR 21:51
PROVIDERS: ATTEND Internal Medicine
DX: L03.90 Cellulitis, unspecified (principal)
CPT/HCPCS: 36415; 76937; 80202; 96365; 96366; 96374; 99211

== ENCOUNTER 2019-09-08 03:29 | Observation (INO) | payer MEDICARE, MEDICAID ==
[2019-09-08] VITALS (12 sets, daily range): BP systolic 96–139; BP diastolic 34–92
[~2019-09-08] VITALS: Ht 167 cm; Wt 85.4 kg
[~2019-09-08 03:29] MED LIST changes: -TROUGH ORDER-PHARMACY XX NR; -VANCOMYCIN 1500 MG/NS 500 ML IVPB IV SCH; -diphenhydrAMINE 50 MG/ML INJ (BENADRYL) IVP ONE
[2019-09-08 04:02] LABS: BILIRUBIN,URINE 2+ (NEGATIVE); CLARITY,URINE SL CLOUDY; COLOR,URINE YELLOW; GLUCOSE, URINE (UA) NEGATIVE (NEGATIVE); KETONES,URINE 1+ (NEGATIVE); LEUKOCYTE ESTERASE ,URINE TRACE (NEGATIVE); NITRITE,URINE NEGATIVE (NEGATIVE); PROTEIN,URINE 1+ (NEGATIVE)
[2019-09-08 04:11] LABS: BASOPHILS % (AUTO) 0 % (0-10); EOSINOPHILS # (AUTO) 0.5 10^3/uL (0.0-0.3); EOSINOPHILS % (AUTO) 5 % (0-10); HEMATOCRIT 36 % (35-52); HEMOGLOBIN 12.4 G/DL (11.5-16.0); LYMPHOCYTES # (AUTO) 2.3 X 10^3 (1.0-4.0); LYMPHOCYTES % (AUTO) 26 % (12-44); MEAN CORPUSCULAR HEMOGLOBIN 27 PG (25-34); MEAN CORPUSCULAR HGB CONC 34 G/DL (32-36); MEAN CORPUSCULAR VOLUME 78 FL (80-99); MEAN PLATELET VOLUME 9.4 FL (7.4-10.4); MONOCYTES # (AUTO) 0.7 X 10^3 (0.0-1.0); MONOCYTES % (AUTO) 8 % (0-12); NEUTROPHILS # (AUTO) 5.5 X 10^3 (1.8-7.8); NEUTROPHILS % (AUTO) 61 % (42-75); PLATELET COUNT 319 10^3/uL (130-400); RED CELL DISTRIBUTION WIDTH 13.6 % (10.0-14.5)
[2019-09-08 04:19] LABS: AMPHETAMINE SCREEN, URINE POSITIVE (NEGATIVE); BACTERIA,URINE MODERATE /HPF; BENZODIAZEPINES SCREEN URINE NEGATIVE (NEGATIVE); CALCIUM OXALATE CRYSTALS,UR MODERATE /LPF; CANNABINOID SCREEN, URINE POSITIVE (NEGATIVE); COCAINE SCREEN URINE NEGATIVE (NEGATIVE); METHAMPHETAMINE SCREEN URINE S POSITIVE (NEGATIVE); URINE OTHER FEW SPERM /HPF
[2019-09-08 04:20] LABS: BARBITURATE SCREEN URINE NEGATIVE (NEGATIVE); METHADONE STAT NEGATIVE (NEGATIVE); OPIATE SCREEN URINE NEGATIVE (NEGATIVE); OXYCODONE STAT NEGATIVE (NEGATIVE); PROPOXYPHENE STAT NEGATIVE (NEGATIVE); TRICYCLIC ANTIDEPRESSANTS SCRE NEGATIVE (NEGATIVE)
[2019-09-08 04:34] LABS: ALANINE AMINOTRANSFERASE 18 U/L (0-55); ALBUMIN 4.1 GM/DL (3.2-4.5); ALKALINE PHOSPHATASE 107 U/L (40-136); BILIRUBIN,TOTAL 0.8 MG/DL (0.1-1.0); BUN/CREATININE RATIO 14; CARBON DIOXIDE 21 MMOL/L (21-32); CHLORIDE 104 MMOL/L (98-107); CREATININE SERUM 0.73 MG/DL (0.60-1.30); GFR ESTIMATED > 60; GLUCOSE 76 MG/DL (70-105); SALICYLATE < 5.0 MG/DL (5.0-20.0); SODIUM 139 MMOL/L (135-145); TOTAL PROTEIN 7.4 GM/DL (6.4-8.2)
[2019-09-08 04:35] LABS: ACETAMINOPHEN < 10 UG/ML (10-30)
[2019-09-08 04:36] LABS: POTASSIUM 2.5 MMOL/L (3.6-5.0)
--- NOTE | 2019-09-08 04:38 | ED Psychosocial ---
General Chief Complaint: Psych/Social Disorder Stated Complaint: OVERDOSE OF TRAMADOL;DEPRESSION Nursing Triage Note: Pt ambulates to RM 6 with SI. Pt states she took 10-15 15mg tramadol as a suicidal attempt to overdose. Pt states she's been going through some situational crisis from her parent dying and also relapsing on meth a week ago. Pt states her threatened to leave her over relapsing which is what led to the SI. Pt is A&O x 4 upon arrival. Source: patient, old records History of Present Illness Date Seen by Provider: Sep 08, 2019 Time Seen by Provider: 03:48 Initial Comments PT ARRIVES VIA POV FROM HOME WITH PT STATES SHE TOOK 10-15 TRAMADOL TONIGHT--BETWEEN MIDNIGHT AND 0100. STATES THEY WERE NOT HER MEDICATIONS--THEY WERE SOMEONE ELSE'S. STATES SHE HAS BEEN FIGHTING WITH HER " BECAUSE HE FOUND OUT I'VE BEEN DOING DOPE FOR THE LAST WEEK" --STATES SHE HAS BEEN SMOKING METH ALL WEEK, BUT CLAIMS "NONE SINCE YESTERDAY" SHE STATES "HE THREATENED TO LEAVE ME, SO I TOOK THEM" "BECAUSE THEN I WON'T HAVE ANYONE BECAUSE I JUST BURIED MY MOTHER RECENTLY" PT HAS EXTENSIVE HISTORY OF POLYSUBSTANCE ABUSE, AND PSYCH ISSUES STATES SHE IS SUPPOSED TO BE ON SEVERAL MEDICATIONS, BUT HAS NOT BEEN TAKING ANY MEDICATIONS "FOR A LONG TIME" STATES SHE WAS SEEN AT [facility] AND HAD AN INTAKE ON 08/31/19 AND HAS A FOLLOW UP APPOINTMENT 09/14/19 THERE. PCP: DR. STARR Allergies and Home Medications Allergies Coded Allergies: NKANo Known Allergies (Verified Allergy, Mild, 02/08/17) Home Medications Acetaminophen 500 Mg Tablet, 1,000 MG PO Q6H PRN for PAIN-MILD, (Reported) Albuterol Sulfate 1 Puff Puff, 2 PUFF IH Q4H PRN for SHORTNESS OF BREATH, (Reported) 1 PUFF = 90 MCG Albuterol Sulfate 2.5 Mg/3 Ml Vial.neb, 2.5 MG NEB Q4H PRN for SHORTNESS OF BREATH, (Reported) Bacitracin 28.4 Gm Oint...g., 1 GM TP BID Prescribed by: MAO HOGAN on 06/10/18 1627 Clobetasol Propionate 15 Gm Oint...g., TP BID, (Reported) 0.05% Doxycycline Monohydrate 100 Mg Tablet, 100 MG PO BID WITH MEALS Prescribed by: WILL NUNEZ on 01/06/18 1515 Hydrocodone/Acetaminophen 1 Each Tablet, 1 EACH PO Q6H PRN for PAIN-MODERATE TO SEVERE Prescribed by: WILL NUNEZ on 01/06/18 1515 L.acidoph & Paracasei,B.lactis 1 Each Capsule, 1 CAP PO DAILY PRN for STOMACH UPSET, (Reported) Loperamide HCl 2 Mg Tablet, PO UD PRN for DIARRHEA, (Reported) Mafenide Acetate 56.7 Gm Cream..g., 56.7 GM TP TID Prescribed by: WILL NUNEZ on 01/06/18 1515 Sulfamethoxazole/Trimethoprim 1 Each Tablet, 1 EACH PO BID Prescribed by: MAO HOGAN on 06/10/18 1627 Sulfamethoxazole/Trimethoprim 1 Each Tablet, 1 EACH PO BID Prescribed by: DELANEY GARZA on 10/07/18 1400 Topiramate 50 Mg Tablet, 50 MG PO BID, (Reported) Patient Home Medication List Home Medication List Reviewed: Yes Review of Systems Constitutional: no symptoms reported EENTM: other (DRY MOUTH) Respiratory: no symptoms reported Cardiovascular: no symptoms reported Gastrointestinal: no symptoms reported Genitourinary: no symptoms reported Musculoskeletal: no symptoms reported Skin: other (CHRONIC SKIN ISSUES) Psychiatric/Neurological: See HPI Past Jesdqct-Poznom-Lkxvcq Hx Past Med/Social Hx: Reviewed and Corrections made Patient Social History Alcohol Use: Occasionally Uses (HISTORY OF ABUSE/BINGES) Number of Drinks Today: II Alcohol Beverage of Choice: Other Recreational Drug Use: Yes (METH, CRACK COCAINE--SMOKES THEM, DENIES IV USE ) Drug of Choice: METH, CRACK COCAINE--SMOKES THEM, DENIES IV USE Smoking Status: Current Everyday Smoker (1/2 PPD) Type Used: Cigarettes (1/2 PPD) 2nd Hand Smoke Exposure: Yes Recent Foreign Travel: No Contact w/Someone Who Travel: No Recent Infectious Disease Expo: No Recent Hopitalizations: No Physical Abuse: No Sexual Abuse: No Mistreated: No Fear: No Immunizations Up To Date Tetanus Booster (TDap): Unknown PED Vaccines UTD: No Date of Pneumonia Vaccine: Jun 15, 2011 Date of Influenza Vaccine: Sep 16, 2015 Seasonal Allergies Seasonal Allergies: No Past Medical History Surgeries: Yes (EGD;L MASTOIDECTOMY;R MYRINGOTOMY TUBE; BTL REVERSAL;GASTRIC SLEEVE 02/2018) Abdominal, Appendectomy, Ear Surgery, Gallbladder, Tubal Ligation Respiratory: Yes Chronic Bronchitis, Sleep Apnea Currently Using CPAP: Yes (PT REPORTS "DOSEN'T WEAR VERY OFTEN") Currently Using BIPAP: No Cardiac: Yes (-INDUCED HTN) Hypertension Neurological: Yes 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 Disorders: No 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: Tubal Ligation Sexually Transmitted Disease: No HIV/AIDS: No Genitourinary: Yes Kidney Stones, UTI-Chronic Gastrointestinal: Yes (GASTRIC SLEEVE 02/2018) Diverticulosis, Gall Bladder Disease, Irritable Bowel Musculoskeletal: Yes (CHRONIC GENERALIZED PAIN ) Degenerate Disk Disease, Arthritis, Fibromyalgia, Chronic Back Pain Endocrine: Yes (MORBID OBESITY) Diabetes, Non-Insulin dep HEENT: Yes (MASTOIDITIS) Chronic Ear Infection Loss of Vision: Denies Hearing Impairment: Hard of Hearing Cancer: No Psychosocial: Yes (PSYCHOSIS, SOCIAL ANXIETY DISORDER; POLYSUBSTANCE ABUSE) ADD/ADHD, Anxiety, Suicide Attempts, Bipolar, Personality Disorder, Schizophrenia, Depression Integumentary: Yes (DARIER'S DISEASE. CHRONIC LEG CELLULITIS--MRSA) Blood Disorders: No Adverse Reaction/Blood Tranf: No Family Medical History Cancer Chest pain 03 FATHER, Onset:Unknown UNCLE, Onset:Unknown Congestive heart failure Depression 03 MOTHER Depresso Family history: Allergy 09 BROTHER, Onset:Unknown Family history: Arthritis 03 FATHER, Onset:Unknown 03 MOTHER, Onset:Unknown Family history: Asthma 03 FATHER, Onset:Unknown UNCLE, Onset:Unknown Family history: Diabetes mellitus Family history: Thyroid disorder 09 SISTER, Onset:Unknown Headache 03 MOTHER, Onset:Unknown Heart disease Hereditary disease 03 FATHER, Onset:Unknown 09 BROTHER, Onset:Unknown UNCLE, Onset:Unknown History of - respiratory disease 03 FATHER, Onset:Unknown UNCLE, Onset:Unknown Myocardial infarction Psychotic disorder 09 BROTHER, Onset:Unknown No Family History of: Abdominal aortic aneurysm Antoni's disease Alcoholism Aphasia Aphasia Cancer of colon Cataract Congenital heart disease Cystic fibrosis Dementia Dysphagia Family history: Alzheimer's disease Family history: Breast disease Family history: Cardiovascular disease Family history: Coronary thrombosis Family history: Gastrointestinal disease Family history: Glaucoma Family history: Hypertension Family history: Osteoporosis Hearing loss History of - anemia History of drug abuse Human immunodeficiency virus (HIV) seropositivity Hypercholesterolemia Infertile Kidney disease Malignant neoplasm of lung Parkinson's disease Prostate cancer Seizure disorder Stroke Tuberculosis Visual impairment Other Conditions/Hx MORBID OBESITY-S/P GASTRIC SLEEVE 02/2018 MULTIPLE ADMITS AND VISITS LONG HISTORY OF NON-COMPLIANCE IN ALL ASPECTS OF CARE. Physical Exam Vital Signs - First Documented 09/08/19 03:43 Temp 36.6 Pulse 92 Resp 20 B/P (MAP) 144/86 (105) Pulse Ox 99 O2 Delivery Room Air Capillary Refill : Less Than 3 Seconds Height, Weight, BMI Height: 5'5.00" Weight: 217lbs. 6.0oz. 98.720406tf; 29.00 BMI Method:Stated General Appearance: WD/WN, no apparent distress HEENT: PERRL/EOMI, other (CONSTANT LIP LICKING, LIPS VERY DRY AND CRACKED. WANTS MOUTH SWAB ON ARRIVAL AND IS CONSTANTLY LICKING AND SUCKING ON IT, WHILE SHE CONTINUES TO CONSTANTLY LICK HER LIPS. 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 ) Appearance/Memory: no memory impairment, disheveled, other (UNKEMPT, MALODOROUS) Behavior/Eye Contact: cooperative, normal speech Thoughts/Hallucinations: no apparent hallucination; No delusions, No flight of ideas, No grandiose, No incoherent, No obsessive, No paranoid, No persecution, No phobic, No temple Skin: warm/dry, other (EXTENSIVE CHRONIC SKIN CHANGES--THICKENING, HYPER KERATOTIC PLAQUES, ETC TO MOST OF SKIN ON BODY, BUT IS WORSE ON LOWER LEGS. NO EVIDENCE OF ACUTE INFECTION. ) Progress/Results/Core Measures Results/Orders Lab Results Laboratory Tests Test 09/08/19 03:52 09/08/19 04:01 Range/Units Urine Color YELLOW Urine Clarity SL CLOUDY Urine pH 6.0 5-9 Urine Specific [place] >=1.030 1.016-1.022 Urine Protein 1+ H NEGATIVE Urine Glucose (UA) NEGATIVE NEGATIVE Urine Ketones 1+ H NEGATIVE Urine Nitrite NEGATIVE NEGATIVE Urine Bilirubin 2+ H NEGATIVE Urine Urobilinogen 4.0 < = 1.0 MG/DL Urine Leukocyte Esterase TRACE NEGATIVE Urine RBC (Auto) NEGATIVE NEGATIVE Urine RBC NONE /HPF Urine WBC 2-5 /HPF Urine Squamous Epithelial Cells 5-10 /HPF Urine Crystals PRESENT H /LPF Urine Calcium Oxalate Crystals MODERATE H /LPF Urine Bacteria MODERATE H /HPF Urine Casts NONE /LPF Urine Mucus LARGE H /LPF Urine Other FEW SPERM H /HPF Urine Culture Indicated NO Urine Opiates Screen NEGATIVE NEGATIVE Urine Oxycodone Screen NEGATIVE NEGATIVE Urine Methadone Screen NEGATIVE NEGATIVE Urine Propoxyphene Screen NEGATIVE NEGATIVE Urine Barbiturates Screen NEGATIVE NEGATIVE Ur Tricyclic Antidepressants Screen NEGATIVE NEGATIVE Urine Phencyclidine Screen NEGATIVE NEGATIVE Urine Amphetamines Screen POSITIVE H NEGATIVE Urine Methamphetamines Screen POSITIVE H NEGATIVE Urine Benzodiazepines Screen NEGATIVE NEGATIVE Urine Cocaine Screen NEGATIVE NEGATIVE Urine Cannabinoids Screen POSITIVE H NEGATIVE White Blood Count 9.0 4.3-11.0 10^3/uL Red Blood Count 4.62 4.35-5.85 10^6/uL Hemoglobin 12.4 11.5-16.0 G/DL Hematocrit 36 35-52 % Mean Corpuscular Volume 78 L 80-99 FL Mean Corpuscular Hemoglobin 27 25-34 PG Mean Corpuscular Hemoglobin Concent 34 32-36 G/DL Red Cell Distribution Width 13.6 10.0-14.5 % Platelet Count 319 130-400 10^3/uL Mean Platelet Volume 9.4 7.4-10.4 FL Neutrophils (%) (Auto) 61 42-75 % Lymphocytes (%) (Auto) 26 12-44 % Monocytes (%) (Auto) 8 0-12 % Eosinophils (%) (Auto) 5 0-10 % Basophils (%) (Auto) 0 0-10 % Neutrophils # (Auto) 5.5 1.8-7.8 X 10^3 Lymphocytes # (Auto) 2.3 1.0-4.0 X 10^3 Monocytes # (Auto) 0.7 0.0-1.0 X 10^3 Eosinophils # (Auto) 0.5 H 0.0-0.3 10^3/uL Basophils # (Auto) 0.0 0.0-0.1 10^3/uL Sodium Level 139 135-145 MMOL/L Potassium Level 2.5 *L 3.6-5.0 MMOL/L Chloride Level 104 98-107 MMOL/L Carbon Dioxide Level 21 21-32 MMOL/L Anion Gap 14 5-14 MMOL/L Blood Urea Nitrogen 10 7-18 MG/DL Creatinine 0.73 0.60-1.30 MG/DL Estimat Glomerular Filtration Rate > 60 BUN/Creatinine Ratio 14 Glucose Level 76 70-105 MG/DL Calcium Level 9.0 8.5-10.1 MG/DL Corrected Calcium 8.9 8.5-10.1 MG/DL Total Bilirubin 0.8 0.1-1.0 MG/DL Aspartate Amino Transf (AST/SGOT) 15 5-34 U/L Alanine Aminotransferase (ALT/SGPT) 18 0-55 U/L Alkaline Phosphatase 107 40-136 U/L Total Protein 7.4 6.4-8.2 GM/DL Albumin 4.1 3.2-4.5 GM/DL TSH [place] Testing 2.65 0.35-4.94 UIU/ML Salicylates Level < 5.0 L 5.0-20.0 MG/DL Acetaminophen Level < 10 L 10-30 UG/ML Serum Alcohol < 10 <10 MG/DL My Orders Orders - MEENAGERIA K DO Urinalysis (09/08/19 03:48) Thyroid Analyzer (09/08/19 03:48) Drug Screen Stat (Urine) (09/08/19 03:48) Cbc With Automated Diff (09/08/19 03:48) Comprehensive Metabolic Panel (09/08/19 03:48) Alcohol (09/08/19 03:48) Acetaminophen (09/08/19 03:48) Salicylate (09/08/19 03:48) Ekg Tracing (09/08/19 03:48) Monitor-Rhythm Ecg Trace Only (09/08/19 03:48) 1/2 Ns W/Kcl 20 Meq/L (0.45% Sodium Chlo (09/08/19 04:45) Vital Signs/I&O 09/08/19 03:43 Temp 36.6 Pulse 92 Resp 20 B/P (MAP) 144/86 (105) Pulse Ox 99 O2 Delivery Room Air Blood Pressure Mean: 105 Progress Progress Note : Progress Note NO DETERIORATION IN PT'S CONDITION DURING ER STAY. SLEPT/ RESTED QUIETLY FOR REMAINDER OF ER STAY Initial ECG Impression Date: Sep 08, 2019 Initial ECG Impression Time: 03:42 Initial ECG Rate: 82 Initial ECG Rhythm: Normal Sinus Initial ECG Impression: Nonspecific Changes Departure Communication (Admissions) [phone]--MESSAGE LEFT ON DR. WHALEY'S CELL PHONE [phone]--SPOKE WITH DR. WHALEY, ACCEPTS PT FOR ADMIT Impression Primary Impression: Suicide attempt Additional Impressions: INTENTIONAL DRUG OVERDOSE OF TRAMADOL Illicit drug use Hypokalemia Disposition: 09 ADMITTED INPATIENT Condition: Stable Admissions Decision to Admit Reason: Admit from ER (General) Decision to Admit/Date: Sep 08, 2019 Time/Decision to Admit Time: 04:45 Departure-Patient Inst. Referrals: CAROLYNE STARR MD (PCP/Family) Primary Care Physician MARISELA ROBLEDO DO Sep 08, 2019 04:37
[2019-09-08 04:49] LABS: TSH (THYROID ANALYZER) 2.65 UIU/ML (0.35-4.94)
[2019-09-08] MEDS: 1/2 NS W/KCL 20 MEQ/L 1,000 ML IV SCH ×2 (04:50→09:01)
[2019-09-08] MEDS: POTASSIUM CL 10MEQ/50ML IVPB 50 ML IV SCH ×4 (05:43→13:15)
[2019-09-08] MEDS ORDERED: KCL 20 MEQ TAB (K-DUR) PO ONE (09:30)
[2019-09-08] MEDS ORDERED: MULT9LIQ6 PO (10:50)
[2019-09-08] MEDS ORDERED: TOPI25CA4 PO (10:50)
[2019-09-08] MEDS ORDERED: [UNRECOGNIZED DRUG - CODE] SL (10:50)
[2019-09-08] MEDS ORDERED: CYCL10TA9 PO (10:50)
--- NOTE | 2019-09-08 11:06 | Discharge Instructions ---
Discharge Inst-[facility] Discharge Medications Continued Medications: Cyanocobalamin (Vitamin B-12) (B-12) 3,000 Mcg/1 Ml Drops 3000 MCG SL DAILY, DROPS Cyclobenzaprine HCl (Cyclobenzaprine HCl) 10 Mg Tablet 10 MG PO HS PRN for MUSCLE SPASMS, TAB Multivit &Minerals/Ferrous Fum (Multivitamin Liquid) 9 Mg/15 Ml Liquid 9 MG PO DAILY, EA Topiramate (Topiramate) 25 Mg Cap.sprink 25 MG PO BID, CAP Patient Instructions Goal/Follow Up Appt: Follow up with Bekah Rivas APRN at [facility] for Psychiatric visit on 09/13 at 10 am. Return to The Hospital For: Suicidal thoughts, chest pain, shortness of breath, dizziness Activity & Diet Discharge Diet: Regular Diet Activity as Tolerated: Yes CARMELO WHALEY MD Sep 08, 2019 11:06
[2019-09-08] MEDS ORDERED: POTASSIUM CL 10MEQ/50ML IVPB 0 ML IV ONE (13:11)
--- NOTE | 2019-09-08 19:26 | Short Stay Summary ---
HPI History of Present Illness: 39 yo female came to ER due to intentional overdose with tramadol, states she took 10-15 tabs about 2 hours prior to her arrival. She was depressed, has had several close family members this year, and has a history of methamphetamine use but had been clean for 10 years. Someone brought some meth and she used it and has been using all week. When her found out, they got in an argument and when he suggested leaving her, she felt he was all she had left and if he left she didn't have a reason to live. This morning she states she feels frustrated with herself for doing this and is glad she is alive, loves her and does not want to . She has been off of medications for sometime, and recognizes she needs to resume and already has an appointment with x ray developer in a week. Source: patient Date seen by provider: Sep 08, 2019 Time Seen by Provider: 06:20 Attending Physician Rosanna Stevens MD PCP Carolyne Starr MD Consult Date of Admission Sep 08, 2019 at 05:10 Home Medications Home Medications Reviewed patient Home Medication Reconciliation performed by pharmacy medication reconciliations chief technician x ray and/or nursing. Patients Allergies have been reviewed. Allergies Coded Allergies: NKANo Known Allergies (Verified Allergy, Mild, 02/08/17) MML-Ehjfat-Gvuhsp Hx Patient Social History Alcohol Use: Occasionally Uses (HISTORY OF ABUSE/BINGES) Recreational Drug Use: Yes (METH, CRACK COCAINE--SMOKES THEM, DENIES IV USE ) Drug of Choice: METH, CRACK COCAINE--SMOKES THEM, DENIES IV USE Smoking Status: Current Everyday Smoker (1/2 PPD) Type Used: Cigarettes (1/2 PPD) 2nd Hand Smoke Exposure: Yes Recent Foreign Travel: No Contact w/other who traveled: No Recent Hopitalizations: No Recent Infectious Disease Expo: No Immunizations Up To Date Tetanus Booster (TDap): Unknown Date of Pneumonia Vaccine: Jun 15, 2011 Date of Influenza Vaccine: Jul 28, 2019 Past Medical History PMHx: Bioplar Disorder Darier's Disease hx of Hypertension Chronic low back pain Morbid Obesity hx of kidney stones HELEN - c-pap (does not use regularly) PSH: cholecystectomy appendectomy tubal ligation EGD left mastoidectomy right ear tubes Gastric bypass Family Medical History Significant Family History: No Pertinent Family Hx, Other Conditions/Hx Review of Systems ([facility]C) Constitutional: No fever EENTM: nose congestion, throat pain Respiratory: No cough Cardiovascular: No chest pain Gastrointestinal: No abdominal pain, No constipation, No diarrhea Genitourinary: No dysuria Skin: other (chronic skin disease) Psychiatric/Neurological: See HPI Reviewed Test Results Reviewed Test Results Lab Laboratory Tests Test 09/08/19 03:52 09/08/19 04:01 09/08/19 12:30 Range/Units Urine Color YELLOW Urine Clarity SL CLOUDY Urine pH 6.0 5-9 Urine Specific [place] >=1.030 1.016-1.022 Urine Protein 1+ H NEGATIVE Urine Glucose (UA) NEGATIVE NEGATIVE Urine Ketones 1+ H NEGATIVE Urine Nitrite NEGATIVE NEGATIVE Urine Bilirubin 2+ H NEGATIVE Urine Urobilinogen 4.0 < = 1.0 MG/DL Urine Leukocyte Esterase TRACE NEGATIVE Urine RBC (Auto) NEGATIVE NEGATIVE Urine RBC NONE /HPF Urine WBC 2-5 /HPF Urine Squamous Epithelial Cells 5-10 /HPF Urine Crystals PRESENT H /LPF Urine Calcium Oxalate Crystals MODERATE H /LPF Urine Bacteria MODERATE H /HPF Urine Casts NONE /LPF Urine Mucus LARGE H /LPF Urine Other FEW SPERM H /HPF Urine Culture Indicated NO Urine Opiates Screen NEGATIVE NEGATIVE Urine Oxycodone Screen NEGATIVE NEGATIVE Urine Methadone Screen NEGATIVE NEGATIVE Urine Propoxyphene Screen NEGATIVE NEGATIVE Urine Barbiturates Screen NEGATIVE NEGATIVE Ur Tricyclic Antidepressants Screen NEGATIVE NEGATIVE Urine Phencyclidine Screen NEGATIVE NEGATIVE Urine Amphetamines Screen POSITIVE H NEGATIVE Urine Methamphetamines Screen POSITIVE H NEGATIVE Urine Benzodiazepines Screen NEGATIVE NEGATIVE Urine Cocaine Screen NEGATIVE NEGATIVE Urine Cannabinoids Screen POSITIVE H NEGATIVE White Blood Count 9.0 4.3-11.0 10^3/uL Red Blood Count 4.62 4.35-5.85 10^6/uL Hemoglobin 12.4 11.5-16.0 G/DL Hematocrit 36 35-52 % Mean Corpuscular Volume 78 L 80-99 FL Mean Corpuscular Hemoglobin 27 25-34 PG Mean Corpuscular Hemoglobin Concent 34 32-36 G/DL Red Cell Distribution Width 13.6 10.0-14.5 % Platelet Count 319 130-400 10^3/uL Mean Platelet Volume 9.4 7.4-10.4 FL Neutrophils (%) (Auto) 61 42-75 % Lymphocytes (%) (Auto) 26 12-44 % Monocytes (%) (Auto) 8 0-12 % Eosinophils (%) (Auto) 5 0-10 % Basophils (%) (Auto) 0 0-10 % Neutrophils # (Auto) 5.5 1.8-7.8 X 10^3 Lymphocytes # (Auto) 2.3 1.0-4.0 X 10^3 Monocytes # (Auto) 0.7 0.0-1.0 X 10^3 Eosinophils # (Auto) 0.5 H 0.0-0.3 10^3/uL Basophils # (Auto) 0.0 0.0-0.1 10^3/uL Sodium Level 139 135-145 MMOL/L Potassium Level 2.5 *L 3.4 L 3.6-5.0 MMOL/L Chloride Level 104 98-107 MMOL/L Carbon Dioxide Level 21 21-32 MMOL/L Anion Gap 14 5-14 MMOL/L Blood Urea Nitrogen 10 7-18 MG/DL Creatinine 0.73 0.60-1.30 MG/DL Estimat Glomerular Filtration Rate > 60 BUN/Creatinine Ratio 14 Glucose Level 76 70-105 MG/DL Calcium Level 9.0 8.5-10.1 MG/DL Corrected Calcium 8.9 8.5-10.1 MG/DL Total Bilirubin 0.8 0.1-1.0 MG/DL Aspartate Amino Transf (AST/SGOT) 15 5-34 U/L Alanine Aminotransferase (ALT/SGPT) 18 0-55 U/L Alkaline Phosphatase 107 40-136 U/L Total Protein 7.4 6.4-8.2 GM/DL Albumin 4.1 3.2-4.5 GM/DL TSH [place] Testing 2.65 0.35-4.94 UIU/ML Salicylates Level < 5.0 L 5.0-20.0 MG/DL Acetaminophen Level < 10 L 10-30 UG/ML Serum Alcohol < 10 <10 MG/DL Physical Exam-(CHC) Physical Exam Vital Signs VS - Last 72 Hours, by Label 09/08/19 09/08/19 09/08/19 09/08/19 03:43 05:25 05:25 05:28 Temp 36.6 36.6 37.2 Pulse 92 89 85 90 Resp 20 20 25 B/P (MAP) 144/86 (105) 132/84 (105) 111/61 (78) Pulse Ox 99 99 96 O2 Delivery Room Air Room Air Room Air 09/08/19 09/08/19 09/08/19 09/08/19 05:40 05:55 06:01 06:10 Pulse 81 78 84 Resp 14 12 12 B/P (MAP) 96/55 (69) 97/54 (68) Pulse Ox 96 96 99 96 O2 Delivery Room Air Room Air Room Air Room Air 09/08/19 09/08/19 09/08/19 09/08/19 06:40 07:00 07:00 08:00 Pulse 87 84 84 Resp 12 13 B/P (MAP) 108/58 (75) 115/34 (61) Pulse Ox 97 94 95 O2 Delivery Room Air Room Air Room Air 09/08/19 09/08/19 09/08/19 09/08/19 08:00 08:00 09:00 10:00 Temp 37.2 Pulse 76 85 88 Resp 18 12 8 B/P (MAP) 106/81 (89) 103/54 (70) 117/64 (81) Pulse Ox 97 95 97 O2 Delivery Room Air Room Air Room Air 09/08/19 09/08/19 09/08/19 09/08/19 11:00 12:00 12:00 12:00 Temp 37.3 Pulse 82 88 Resp 19 9 B/P (MAP) 108/92 (97) 139/71 (93) Pulse Ox 94 96 O2 Delivery Room Air Room Air Room Air 09/08/19 09/08/19 09/08/19 09/08/19 13:00 13:00 14:00 15:00 Pulse 84 85 87 86 Resp 33 15 19 B/P (MAP) 125/34 (64) 110/54 (72) Pulse Ox 98 O2 Delivery Room Air Room Air Room Air 09/08/19 16:10 B/P (MAP) Capillary Refill : Less Than 3 Seconds General Appearance: WD/WN, no apparent distress Respiratory: lungs clear, normal breath sounds Cardiovascular: regular rate, rhythm, no murmur Gastrointestinal: normal bowel sounds, non tender, soft Extremities: no pedal edema Neurologic/Psychiatric: alert, normal mood/affect Skin: other (erythema with ulcerations and scabbing to bilateral lower legs, pt reports chronic) Short Stay Diagnosis Discharge Diagnosis-Short Stay Admission Diagnosis Intentional overdose (tramadol) Methamphetamine use Hypokalemia Final Discharge Diagnosis Intentional overdose (tramadol)- per poison control, monitored serial EKGs for over 8 hours, no QTc or QRS prolongation. Has follow up with Psych scheduled. Denies suicidal ideation at this time. Methamphetamine use- encouraged abstinence Hypokalemia- replaced Conclusion Plan See discharge diagnosis Was the Problem List Reviewed?: Yes Clinical Quality Measures DVT/VTE Risk/Contraindication: Risk Factor Score Per Nursin RFS Level Per Nursing on Admit: 1=Low/No VTE PPX Copy Copies To 1: CAROLYNE STARR MD Assessment/Plan Assessment/Plan Admission Status: Observation Assessment & Plan Intentional overdose with tramadol ROSANNA STEVENS MD Sep 08, 2019 19:26
== END 2019-09-08 16:10 | disposition home or self-care (01) ==
LOC: EDUNIT# 03:29 → ER 03:31 → ICU 05:10
PROVIDERS: ADMIT Family Medicine; ATTEND Family Medicine
DX: T40.4X2A Poisoning by other synthetic narcotics, intentional self-harm, initial encounter (principal); I10 Essential (primary) hypertension; J42 Unspecified chronic bronchitis; N39.0 Urinary tract infection, site not specified; M19.90 Unspecified osteoarthritis, unspecified site; M79.7 Fibromyalgia; G89.29 Other chronic pain; M54.9 Dorsalgia, unspecified; E11.9 Type 2 diabetes mellitus without complications; E87.6 Hypokalemia; F17.210 Nicotine dependence, cigarettes, uncomplicated; F41.9 Anxiety disorder, unspecified; F60.9 Personality disorder, unspecified; F20.9 Schizophrenia, unspecified; F31.9 Bipolar disorder, unspecified; F19.90 Other psychoactive substance use, unspecified, uncomplicated; Z79.891 Long term (current) use of opiate analgesic; Z79.899 Other long term (current) drug therapy; Z90.89 Acquired absence of other organs; Z98.51 Tubal ligation status; Z82.49 Family history of ischemic heart disease and other diseases of the circulatory system; Z83.3 Family history of diabetes mellitus; Z82.61 Family history of arthritis
CPT/HCPCS: 36415; 80053; 80306; 80320; 80329; 81000; 84132; 84443; 85025; 93041; 96360; G0378

== ENCOUNTER 2019-09-11 18:08 | Emergency (ER) | payer MEDICARE, MEDICAID ==
[~2019-09-11] VITALS: Ht 165 cm; Wt 86.3 kg
[~2019-09-11 18:08] MED LIST changes: +MULT9LIQ6 PO; +TOPI25CA4 PO; +[UNRECOGNIZED DRUG - CODE] SL
--- NOTE | 2019-09-11 18:38 | NUR ---
Patient states "I just dont feel right. Both of my hands are numb and I have had lower abdominal pain and my back hurts".
[2019-09-11 18:41] LABS: BASOPHILS % (AUTO) 1 % (0-10); CLARITY,URINE CLOUDY; COLOR,URINE YELLOW; EOSINOPHILS # (AUTO) 0.2 10^3/uL (0.0-0.3); EOSINOPHILS % (AUTO) 3 % (0-10); GLUCOSE, URINE (UA) NEGATIVE (NEGATIVE); HEMATOCRIT 41 % (35-52); HEMOGLOBIN 13.7 G/DL (11.5-16.0); KETONES,URINE TRACE (NEGATIVE); LEUKOCYTE ESTERASE ,URINE TRACE (NEGATIVE); LYMPHOCYTES # (AUTO) 2.3 X 10^3 (1.0-4.0); LYMPHOCYTES % (AUTO) 33 % (12-44); MEAN CORPUSCULAR HEMOGLOBIN 27 PG (25-34); MEAN CORPUSCULAR HGB CONC 34 G/DL (32-36); MEAN CORPUSCULAR VOLUME 79 FL (80-99); MEAN PLATELET VOLUME 9.4 FL (7.4-10.4); MONOCYTES # (AUTO) 0.4 X 10^3 (0.0-1.0); MONOCYTES % (AUTO) 6 % (0-12); NEUTROPHILS % (AUTO) 57 % (42-75); NITRITE,URINE NEGATIVE (NEGATIVE); PLATELET COUNT 349 10^3/uL (130-400); PROTEIN,URINE NEGATIVE (NEGATIVE); RED CELL DISTRIBUTION WIDTH 13.6 % (10.0-14.5)
--- NOTE | 2019-09-11 18:45 | ED General ---
General Chief Complaint: General Problems/Pain Stated Complaint: AMS Nursing Triage Note: Patient ambulatory to ER room 3 with spouse. Per the spouse patient was not talking to him after he came home from the grocery store and he felt she as not acting right. Patient is awake and alert. She answers all questions appropiately and denies taking any medications or drug use today. Patient was seen 3 days ago here for overdose on Tramadol. Spouse states patient has slept for the last 3 days since released from here. Nursing Sepsis Screen: No Definite Risk Source of Information: Patient Exam Limitations: No Limitations History of Present Illness Date Seen by Provider: Sep 11, 2019 Time Seen by Provider: 18:42 Initial Comments To ER by from home with reports that she's not acting right. He states she hasn't been out of bed in 3 days, she has low back pain, nausea. No fevers or chills. No vomiting. When asked what brings her in today she points to her tearfully. Her only complaint is that her hands tingle. She was here 3 days ago for intentional overdose on tramadol. She denies any substance use or abuse in the interim since that discharge. She does state that she feels anxious. Timing/Duration: 1-2 Days Severity: Moderate Associated Systoms: Nausea/Vomiting, Weakness Allergies and Home Medications Allergies Coded Allergies: NKANo Known Allergies (Verified Allergy, Mild, 02/08/17) Home Medications Cyanocobalamin (Vitamin B-12) 3,000 Mcg/1 Ml Drops, 3,000 MCG SL DAILY, (Reported) Cyclobenzaprine HCl 10 Mg Tablet, 10 MG PO HS PRN for MUSCLE SPASMS, (Reported) Multivit &Minerals/Ferrous Fum 9 Mg/15 Ml Liquid, 9 MG PO DAILY, (Reported) Topiramate 25 Mg Cap.sprink, 25 MG PO BID, (Reported) Patient Home Medication List Home Medication List Reviewed: Yes Review of Systems Review of Systems Constitutional: see HPI, weakness EENTM: see HPI Respiratory: no symptoms reported Cardiovascular: no symptoms reported Genitourinary: no symptoms reported Musculoskeletal: no symptoms reported Skin: no symptoms reported Psychiatric/Neurological: See HPI, Anxiety Hematologic/Lymphatic: No Symptoms Reported Immunological/Allergic: no symptoms reported Past Pefoasc-Uvodky-Ecrkhu Hx Patient Social History Alcohol Use: Denies Use Number of Drinks Today: II Alcohol Beverage of Choice: Other Recreational Drug Use: Yes (meth ) Drug of Choice: METH, CRACK COCAINE--SMOKES THEM, DENIES IV USE Smoking Status: Never a Smoker Type Used: Cigarettes 2nd Hand Smoke Exposure: No Recent Foreign Travel: No Contact w/Someone Who Travel: No Recent Infectious Disease Expo: No Recent Hopitalizations: No Immunizations Up To Date Tetanus Booster (TDap): Unknown PED Vaccines UTD: No Date of Pneumonia Vaccine: Jun 15, 2011 Date of Influenza Vaccine: Jul 28, 2019 Seasonal Allergies Seasonal Allergies: No Past Medical History Surgeries: Yes (EGD;L MASTOIDECTOMY;R MYRINGOTOMY TUBE; BTL REVERSAL;GASTRIC SLEEVE 02/2018) Abdominal, Appendectomy, Ear Surgery, Gallbladder, Tubal Ligation Respiratory: Yes Chronic Bronchitis, Sleep Apnea Currently Using CPAP: Yes (PT REPORTS "DOSEN'T WEAR VERY OFTEN") Currently Using BIPAP: No Cardiac: Yes (-INDUCED HTN) Hypertension Neurological: Yes 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 Disorders: No Female 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 Disorders: 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: Tubal 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 Sexually Transmitted Disease: No HIV/AIDS: No Genitourinary: Yes Kidney Stones, UTI-Chronic Gastrointestinal: Yes (GASTRIC SLEEVE 02/2018) Diverticulosis, Gall Bladder Disease, Irritable Bowel Musculoskeletal: Yes (CHRONIC GENERALIZED PAIN ) Degenerate Disk Disease, Arthritis, Fibromyalgia, Chronic Back Pain Endocrine: Yes (MORBID OBESITY) Diabetes, Non-Insulin dep HEENT: Yes (MASTOIDITIS) Chronic Ear Infection Loss of Vision: Denies Hearing Impairment: Hard of Hearing Cancer: No Psychosocial: Yes (PSYCHOSIS, SOCIAL ANXIETY DISORDER; POLYSUBSTANCE ABUSE) ADD/ADHD, Anxiety, Suicide Attempts, Bipolar, Personality Disorder, Schizophrenia, Depression Integumentary: Yes (DARIER'S DISEASE. CHRONIC LEG CELLULITIS--MRSA) Recent Skin Changes Blood Disorders: No Adverse Reaction/Blood Tranf: No Family Medical History Cancer Chest pain 03 FATHER, Onset:Unknown UNCLE, Onset:Unknown Congestive heart failure Depression 03 MOTHER Depresso Family history: Allergy 09 BROTHER, Onset:Unknown Family history: Arthritis 03 FATHER, Onset:Unknown 03 MOTHER, Onset:Unknown Family history: Asthma 03 FATHER, Onset:Unknown UNCLE, Onset:Unknown Family history: Diabetes mellitus Family history: Thyroid disorder 09 SISTER, Onset:Unknown Headache 03 MOTHER, Onset:Unknown Heart disease Hereditary disease 03 FATHER, Onset:Unknown 09 BROTHER, Onset:Unknown UNCLE, Onset:Unknown History of - respiratory disease 03 FATHER, Onset:Unknown UNCLE, Onset:Unknown Myocardial infarction Psychotic disorder 09 BROTHER, Onset:Unknown No Family History of: Abdominal aortic aneurysm Sturdivant's disease Alcoholism Aphasia Aphasia Cancer of colon Cataract Congenital heart disease Cystic fibrosis Dementia Dysphagia Family history: Alzheimer's disease Family history: Breast disease Family history: Cardiovascular disease Family history: Coronary thrombosis Family history: Gastrointestinal disease Family history: Glaucoma Family history: Hypertension Family history: Osteoporosis Hearing loss History of - anemia History of drug abuse Human immunodeficiency virus (HIV) seropositivity Hypercholesterolemia Infertile Kidney disease Malignant neoplasm of lung Parkinson's disease Prostate cancer Seizure disorder Stroke Tuberculosis Visual impairment No Pertinent Family Hx, Other Conditions/Hx Physical Exam Vital Signs Vital Signs - First Documented 09/11/19 18:10 Pulse 88 Resp 16 B/P (MAP) 114/69 (84) Pulse Ox 100 O2 Delivery Room Air Capillary Refill : Less Than 3 Seconds Height, Weight, BMI Height: 5'5.00" Weight: 217lbs. 6.0oz. 98.451668hp; 31.00 BMI Method:Stated General Appearance: No Apparent Distress, WD/WN, Other (unkempt. She is alert, she answers my questions but is generally tearful.) Eyes: Bilateral Eye Normal Inspection, Bilateral Eye PERRL, Bilateral Eye EOMI HEENT: PERRL/EOMI, TMs Normal Neck: Full Range of Motion, Normal Inspection Respiratory: Lungs Clear, No Accessory Muscle Use, No Respiratory Distress Cardiovascular: Regular Rate, Rhythm, Normal Peripheral Pulses Gastrointestinal: Normal Bowel Sounds, Non Tender, Soft Extremity: Other (erythema/crusting to bilateral lower extremities, parts of her upper extremities and forehead.) Neurologic/Psychiatric: Alert, Oriented x3 Skin: Normal Color, Warm/Dry, Other (is known to have keratosis follicularis with chronic skin changes from that.) Progress/Results/Core Measures Suspected Sepsis Recent Fever Within 48 Hours: No Infection Criteria Present: None New/Unexplained Altered Menta: No Sepsis Screen: No Definite Risk SIRS Temperature: Pulse: 88 Respiratory Rate: 16 Laboratory Tests 09/11/19 18:29: White Blood Count 7.0 Blood Pressure 114 /69 Mean: 84 Laboratory Tests 09/11/19 18:29: Creatinine 0.78, INR Comment 1.0, Platelet Count 349, Total Bilirubin 0.5 Results/Orders Lab Results Laboratory Tests Test 09/11/19 18:29 Range/Units White Blood Count 7.0 4.3-11.0 10^3/uL Red Blood Count 5.14 4.35-5.85 10^6/uL Hemoglobin 13.7 11.5-16.0 G/DL Hematocrit 41 35-52 % Mean Corpuscular Volume 79 L 80-99 FL Mean Corpuscular Hemoglobin 27 25-34 PG Mean Corpuscular Hemoglobin Concent 34 32-36 G/DL Red Cell Distribution Width 13.6 10.0-14.5 % Platelet Count 349 130-400 10^3/uL Mean Platelet Volume 9.4 7.4-10.4 FL Neutrophils (%) (Auto) 57 42-75 % Lymphocytes (%) (Auto) 33 12-44 % Monocytes (%) (Auto) 6 0-12 % Eosinophils (%) (Auto) 3 0-10 % Basophils (%) (Auto) 1 0-10 % Neutrophils # (Auto) 4.0 1.8-7.8 X 10^3 Lymphocytes # (Auto) 2.3 1.0-4.0 X 10^3 Monocytes # (Auto) 0.4 0.0-1.0 X 10^3 Eosinophils # (Auto) 0.2 0.0-0.3 10^3/uL Basophils # (Auto) 0.0 0.0-0.1 10^3/uL Prothrombin Time 13.4 12.2-14.7 SEC INR Comment 1.0 0.8-1.4 Urine Color YELLOW Urine Clarity CLOUDY Urine pH 6.0 5-9 Urine Specific [place] 1.025 H 1.016-1.022 Urine Protein NEGATIVE NEGATIVE Urine Glucose (UA) NEGATIVE NEGATIVE Urine Ketones TRACE H NEGATIVE Urine Nitrite NEGATIVE NEGATIVE Urine Bilirubin 2+ H NEGATIVE Urine Urobilinogen 2.0 < = 1.0 MG/DL Urine Leukocyte Esterase TRACE NEGATIVE Urine RBC (Auto) NEGATIVE NEGATIVE Urine RBC NONE /HPF Urine WBC 2-5 /HPF Urine Squamous Epithelial Cells 5-10 /HPF Urine Crystals NONE /LPF Urine Bacteria MODERATE H /HPF Urine Casts NONE /LPF Urine Mucus MODERATE H /LPF Urine Culture Indicated NO Sodium Level 142 135-145 MMOL/L Potassium Level 3.6 3.6-5.0 MMOL/L Chloride Level 108 H 98-107 MMOL/L Carbon Dioxide Level 23 21-32 MMOL/L Anion Gap 11 5-14 MMOL/L Blood Urea Nitrogen 9 7-18 MG/DL Creatinine 0.78 0.60-1.30 MG/DL Estimat Glomerular Filtration Rate > 60 BUN/Creatinine Ratio 12 Glucose Level 105 70-105 MG/DL Calcium Level 9.5 8.5-10.1 MG/DL Corrected Calcium 9.5 8.5-10.1 MG/DL Total Bilirubin 0.5 0.1-1.0 MG/DL Aspartate Amino Transf (AST/SGOT) 13 5-34 U/L Alanine Aminotransferase (ALT/SGPT) 19 0-55 U/L Alkaline Phosphatase 106 40-136 U/L Total Protein 7.7 6.4-8.2 GM/DL Albumin 4.0 3.2-4.5 GM/DL Serum Test, Qualitative NEGATIVE NEGATIVE Salicylates Level < 5.0 L 5.0-20.0 MG/DL Urine Opiates Screen NEGATIVE NEGATIVE Urine Oxycodone Screen NEGATIVE NEGATIVE Urine Methadone Screen NEGATIVE NEGATIVE Urine Propoxyphene Screen NEGATIVE NEGATIVE Acetaminophen Level < 10 L 10-30 UG/ML Urine Barbiturates Screen NEGATIVE NEGATIVE Ur Tricyclic Antidepressants Screen NEGATIVE NEGATIVE Urine Phencyclidine Screen NEGATIVE NEGATIVE Urine Amphetamines Screen NEGATIVE NEGATIVE Urine Methamphetamines Screen POSITIVE H NEGATIVE Urine Benzodiazepines Screen NEGATIVE NEGATIVE Urine Cocaine Screen NEGATIVE NEGATIVE Urine Cannabinoids Screen POSITIVE H NEGATIVE Serum Alcohol < 10 <10 MG/DL My Orders Orders - DELANEY 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 Cbc With Automated Diff (09/11/19 18:22) Alcohol (09/11/19 18:22) Comprehensive Metabolic Panel (09/11/19 18:22) Ua Culture If Indicated (09/11/19 18:22) Hcg,Qualitative Serum (09/11/19 18:22) Ed Iv/Invasive Line Start (09/11/19 18:22) Protime With Inr (09/11/19 18:22) Salicylate (09/11/19 18:22) Acetaminophen (09/11/19 18:22) Ekg Tracing (09/11/19 18:22) Ct Head Wo (09/11/19 18:22) Drug Screen Stat (Urine) (09/11/19 18:35) Lorazepam Injection (Ativan Injection) (09/11/19 18:45) Lorazepam Injection (Ativan Injection) (09/11/19 19:00) Medications Given in ED Current Medications Medications Dose Ordered Sig/Rosina Route Start Time Stop Time Status Last Admin Dose Admin Lorazepam 0.5 mg ONCE PRN IVP 09/11/19 18:45 09/11/19 19:13 0.5 MG Vital Signs/I&O 09/11/19 18:10 Pulse 88 Resp 16 B/P (MAP) 114/69 (84) Pulse Ox 100 O2 Delivery Room Air Capillary Refill : Less Than 3 Seconds 2 Blood Pressure Mean: 84 Departure Impression Primary Impression: Methamphetamine use Additional Impression: Sinusitis Disposition: HOME, SELF-CARE Condition: Improved Departure-Patient Inst. Decision time for Depature: 19:19 Referrals: CAROLYNE STARR MD (PCP/Family) Primary Care Physician Patient Instructions: Drug Abuse Treatment, Sinusitis in Adults Add. Discharge Instructions: All discharge instructions reviewed with patient and/or family. Voiced understanding. Scripts Amoxicillin/Potassium Clav (Augmentin 875-125 Tablet) 1 Each Tablet 1 EACH PO BID, #14 TAB Prov: DELANEY GARZA APRN 09/11/19 DELANEY GARZA APRN Sep 11, 2019 18:45
[2019-09-11] MEDS: LORazepam INJ 2 MG/ML (ATIVAN) VIAL IVP PRN ×2 (18:47→19:13)
[2019-09-11 18:50] LABS: BACTERIA,URINE MODERATE /HPF
[2019-09-11 18:51] LABS: BILIRUBIN,URINE 2+ (NEGATIVE)
[2019-09-11 18:52] LABS: PROTHROMBIN TIME PATIENT 13.4 SEC (12.2-14.7)
[2019-09-11 19:00] LABS: ALANINE AMINOTRANSFERASE 19 U/L (0-55); ALKALINE PHOSPHATASE 106 U/L (40-136); BILIRUBIN,TOTAL 0.5 MG/DL (0.1-1.0); BUN/CREATININE RATIO 12; CALCIUM 9.5 MG/DL (8.5-10.1); CARBON DIOXIDE 23 MMOL/L (21-32); CHLORIDE 108 MMOL/L (98-107); CREATININE SERUM 0.78 MG/DL (0.60-1.30); GFR ESTIMATED > 60; GLUCOSE 105 MG/DL (70-105); POTASSIUM 3.6 MMOL/L (3.6-5.0); SALICYLATE < 5.0 MG/DL (5.0-20.0); SODIUM 142 MMOL/L (135-145); TOTAL PROTEIN 7.7 GM/DL (6.4-8.2)
[2019-09-11] MEDS ORDERED: LORazepam INJ 2 MG/ML (ATIVAN) VIAL IVP PRN (19:00)
[2019-09-11 19:01] LABS: AMPHETAMINE SCREEN, URINE NEGATIVE (NEGATIVE); BARBITURATE SCREEN URINE NEGATIVE (NEGATIVE); BENZODIAZEPINES SCREEN URINE NEGATIVE (NEGATIVE); CANNABINOID SCREEN, URINE POSITIVE (NEGATIVE); COCAINE SCREEN URINE NEGATIVE (NEGATIVE); METHADONE STAT NEGATIVE (NEGATIVE); METHAMPHETAMINE SCREEN URINE S POSITIVE (NEGATIVE); OPIATE SCREEN URINE NEGATIVE (NEGATIVE); OXYCODONE STAT NEGATIVE (NEGATIVE); PROPOXYPHENE STAT NEGATIVE (NEGATIVE); TRICYCLIC ANTIDEPRESSANTS SCRE NEGATIVE (NEGATIVE)
[2019-09-11 19:08] LABS: ACETAMINOPHEN < 10 UG/ML (10-30)
--- NOTE | 2019-09-11 19:14 | NUR ---
Patient states Ativan did not help her and she is still tearful. Patient given second dose of Ativan IV. Spouse at bedside.
--- NOTE | 2019-09-11 19:22 | Diagnostic Imaging Report ---
PROCEDURE: CT head without contrast. TECHNIQUE: Multiple contiguous axial images were obtained through the brain without the use of intravenous contrast. Auto Exposure Controls were utilized during the CT exam to meet ALARA standards for radiation dose reduction. INDICATION: Headache COMPARISON: 09/13/2016 FINDINGS: Ventricles are normal in size, shape, and position. There is no midline shift or mass effect. There is no hemorrhage or evidence of acute ischemia. There is no mass. Air-fluid levels are seen in the maxillary sinuses. There are postoperative changes involving the left mastoid and ear canal. The right mastoid is clear. There is no skull fracture. IMPRESSION: 1. No acute intracranial abnormality. 2. Acute sinus disease. Dictated by: Dictated on workstation # [id number]
[2019-09-11] MEDS ORDERED: AMOX-358 PO (19:24)
[2019-09-11 19:31] VITALS: BP 108/71
== END 2019-09-11 19:33 | disposition home or self-care (01) ==
LOC: EDUNIT# 18:08 → ER 18:09
DX: F15.90 Other stimulant use, unspecified, uncomplicated (principal); J32.9 Chronic sinusitis, unspecified; I10 Essential (primary) hypertension; E11.9 Type 2 diabetes mellitus without complications; F90.9 Attention-deficit hyperactivity disorder, unspecified type; F41.9 Anxiety disorder, unspecified; F31.9 Bipolar disorder, unspecified; F60.9 Personality disorder, unspecified; F20.9 Schizophrenia, unspecified; E66.01 Morbid (severe) obesity due to excess calories; K58.9 Irritable bowel syndrome, unspecified; M79.7 Fibromyalgia; G47.30 Sleep apnea, unspecified; Z87.440 Personal history of urinary (tract) infections; Z87.442 Personal history of urinary calculi; Z99.89 Dependence on other enabling machines and devices; Z90.49 Acquired absence of other specified parts of digestive tract; Z68.31 Body mass index [BMI] 31.0-31.9, adult; Z98.51 Tubal ligation status; Z82.49 Family history of ischemic heart disease and other diseases of the circulatory system
CPT/HCPCS: 36415; 70450; 80053; 80306; 80320; 80329; 81000; 84703; 85025; 85610; 93005; 96374

== ENCOUNTER → 2019-09-22 | Outpatient (CLI) | payer MEDICARE, MEDICAID ==
[~2019-09-22] MED LIST changes: +AMOX-358 PO; -TRAM50TA2 PO
--- NOTE | 2019-09-23 14:15 | Diagnostic Imaging Report ---
INDICATION: Routine screening. No prior mammograms are available for comparison. This is a baseline study. 2-D and 3-D bilateral screening mammography was performed. The current study was also evaluated with a Computer Aided Detection (CAD) system. 3-D tomosynthesis was also performed and reviewed. FINDINGS: Both breasts are heterogeneously dense, limiting the sensitivity of mammography. No dominant mass or malignant-appearing microcalcifications are seen. There is a lymph node in the left axillary tail. Axillae are unremarkable. IMPRESSION: No mammographic features suspicious for malignancy are identified. ACR BI-RADS Category 2: Benign findings. Result letter will be mailed to the patient. Note: At least 10% of breast cancer is not imaged by mammography. Dictated by: Dictated on workstation # [id number]
== END ==
LOC: RAD 15:46
PROVIDERS: ATTEND Nurse Practitioner Primary Care
DX: Z12.31 Encounter for screening mammogram for malignant neoplasm of breast (principal); Z01.419 Encounter for gynecological examination (general) (routine) without abnormal findings
CPT/HCPCS: 77067